=== PATIENT | female | born 1995 | race Caucasian/White ===

== ENCOUNTER 2016-05-29 17:28 | Observation (INO) | payer MEDICAID ==
[2016-05-29] MEDS ORDERED: Zofran 4 MG/2 ML VIAL IV ONE (17:58)
[2016-05-29] MEDS ORDERED: MORPHINE SULFATE 4 MG INJ IV ONE (17:58)
[2016-05-29] MEDS ORDERED: Sodium Chloride 0.9% 1000 ML 1,000 ML IV STA (17:58)
--- NOTE | 2016-05-29 18:04 | ERPHSYRPT ---
- History of Present Illness Time Seen by Provider: 05/29/16 17:55 Historian: patient Exam Limitations: no limitations Patient Subjective Stated Complaint: states had op infusion then went to drug store to get meds. vomited while at drugstore and then had severe chest pain. has been out of buspar for one week Triage Nursing Assessment: to room per w/c. skin pale, w/d, resp nonlabored. a /o times three. clutching chest. Physician History: 20-year-old white female with history of Crohn's disease states that she had come to the infusion center to receive IV fluids secondary to nausea and vomiting and felt like she was dehydrated she states she finished at the infusion center went to the local pharmacy and suddenly began to experience vomiting and the pain in her substernal region. She states she is having a substernal chest pain which is somewhat sharp in character and somewhat of a pressure in character she states she is short of breath she does state that she is nauseous. Past medical history includes asthma, Crohn's disease, GERD, irritable bowel syndrome, depression, she has had mono in the past. Past surgical history includes rotator cuff, bilateral myringotomy tubes. Social history is positive for marijuana Timing/Duration: today, other (just prior to arrival) Activities at Onset: other (had gotten to the drug storeafter infusion) Quality: pressure, sharpness Location: substernal, epigastric Chest Pain Radiation: no radiation Severity of Pain-Max: moderate Severity of Pain-Current: moderate Modifying Factors: Improves With: nothing Associated Symptoms: nausea, vomiting, shortness of breath, No palpitations, No heartburn, No abdominal pain, No cough, No hurts to breathe, No diaphoresis, No chills, No fever, No fatigue, No weakness, No swelling/lump in chest, No syncope , No rash, No headache, No dizziness, No edema, No back pain Prior Chest Pain/Cardiac Workup: no prior chest pain Nitro Today/Relief: no nitro taken today Aspirin Treatment Today: no aspirin today Allergies/Adverse Reactions: paroxetine HCl [From Paxil] Adverse Reaction (Verified 05/29/16 17:41) Nausea Home Medications: Buspirone HCl 5 mg [Buspar 5 mg] 5 mg PO DAILY 04/16/16 [History] Fluticasone Propionate [Flonase NASAL] 16 gm NS DAILY 05/29/16 [History] Hx Tetanus, Diphtheria Vaccination/Date Given: No Hx Influenza Vaccination/Date Given: No Hx Pneumococcal Vaccination/Date Given: No - Review of Systems Constitutional: No Fever, No Chills Eyes: No Symptoms Ears, Nose, & Throat: No Symptoms Respiratory: No Cough, No Dyspnea Cardiac: Chest Pain Abdominal/Gastrointestinal: Abdominal Pain (epigastric pain), Nausea, Vomiting, No Diarrhea, No Constipation, No Hematemesis, No Hematochezia, No Melena, No Dysphagia, No Appetite Changes Genitourinary Symptoms: No Dysuria Musculoskeletal: No Back Pain, No Neck Pain Skin: No Rash Neurological: No Dizziness, No Focal Weakness, No Sensory Changes Psychological: No Symptoms Endocrine: No Symptoms All Other Systems: Reviewed and Negative - Past Medical History Pertinent Past Medical History: Yes Neurological History: Migraines ENT History: No Pertinent History Cardiac History: No Pertinent History Respiratory History: Asthma Endocrine Medical History: No Pertinent History Musculoskeletal History: No Pertinent History GI Medical History: Crohns Disease, GERD, Irritable Bowel History: No Pertinent History, Other Psycho-Social History: Depression Female Reproductive Disorders: Other Other Medical History: MONO. IRRITABLE BOWEL. - Past Surgical History Past Surgical History: Yes Neuro Surgical History: No Pertinent History Cardiac: No Pertinent History Respiratory: No Pertinent History Gastrointestinal: No Pertinent History Genitourinary: No Pertinent History, Other Musculoskeletal: Orthopedic Surgery Female Surgical History: No Pertinent History Other Surgical History: right rotator cuff repair. Ear tubes bilat - Social History Smoking Status: Never smoker Exposure to second hand smoke: Yes Drug Use: marijuana Patient Lives Alone: No Significant Family History: no pertinent family hx - Female History Hx Last Menstrual Period: 05/20/16 Hx Now: (UNKNOWN) - Nursing Vital Signs Temperature: 97.7 F Temperature Source: Oral Pulse Rate: 85 Respiratory Rate: 18 Pain Intensity: 7 - Physical Exam General Appearance: other (white female somewhat pale in appearance mild distress) Eye Exam: PERRL/EOMI, eyes nml inspection Ears, Nose, Throat Exam: normal ENT inspection, moist mucous membranes Neck Exam: normal inspection, non-tender, supple, full range of motion Respiratory Exam: normal breath sounds, lungs clear, No respiratory distress Cardiovascular Exam: regular rate/rhythm, normal heart sounds Gastrointestinal/Abdomen Exam: soft, normal bowel sounds, tenderness ( epigastric tenderness) Back Exam: normal inspection, No CVA tenderness, No vertebral tenderness Extremity Exam: normal inspection, normal range of motion Neurologic Exam: alert, oriented x 3, cooperative, normal mood/affect, sensation nml, No motor deficits Skin Exam: normal color, warm, dry SpO2 Interpretation: normal (99%) SpO2: 99 Oxygen Delivery: Room Air - Course Nursing assessment & vital signs reviewed: Yes EKG Interpreted by Me: RATE (78 bpm), Sinus Rhythm, NORMAL AXIS, Other (EKG, sinus arrhythmia, 78 bpm, normal axis,no acute ST or T wave changes, essentially normal EKG) - Radiology Exams Chest X-ray Interpretation: Interpreted by me, Negative, No Pneumonia, No Pneumothorax Ordered Tests: Active Orders 24 hr Category Date Time 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 Care 05/29/16 17:58 Active EKG-ER Only STAT Care 05/29/16 17:58 Active CHEST 1 VIEW (PORTABLE) Stat Exams 05/29/16 17:58 Taken AMYLASE Stat Lab 05/29/16 18:01 Completed CBC W DIFF Stat Lab 05/29/16 18:01 Completed CMP Stat Lab 05/29/16 18:01 Completed HCG QUALITATIVE,SERUM Stat Lab 05/29/16 18:01 Completed LIPASE Stat Lab 05/29/16 18:01 Completed TROPONIN Q3H Lab 05/30/16 00:00 Ordered TROPONIN Q3H Lab 05/30/16 03:00 Ordered TROPONIN Q3H Lab 05/30/16 06:00 Ordered TROPONIN Stat Lab 05/29/16 18:01 Completed Medication Summary Discontinued Medications Generic Name Dose Route Start Last Admin Trade Name Dimple PRN Reason Stop Dose Admin Sodium Chloride 1,000 mls @ 999 mls/hr 05/29/16 17:58 05/29/16 18:10 Sodium Chloride 0.9% 1000 Ml IV 05/29/16 18:58 999 mls/hr .Q1H1M STA Administration Sodium Chloride Confirm 05/29/16 18:05 Sodium Chloride 0.9% 1000 Ml Administered 05/29/16 18:06 Dose 1,000 mls @ ud .ROUTE .STK-MED ONE Morphine Sulfate 4 mg 05/29/16 17:58 05/29/16 18:10 Morphine Sulfate 4 Mg Inj IV 05/29/16 17:59 4 mg STAT ONE Administration Morphine Sulfate Confirm 05/29/16 18:05 Morphine Sulfate 4 Mg Inj Administered 05/29/16 18:06 Dose 4 mg .ROUTE .STK-MED ONE Ondansetron HCl 4 mg 05/29/16 17:58 Zofran 4 Mg/2 Ml Vial IV 05/29/16 17:59 STAT ONE Ondansetron HCl Confirm 05/29/16 18:05 Zofran 4 Mg/2 Ml Vial Administered 05/29/16 18:06 Dose 4 mg .ROUTE .STK-MED ONE Lab/Rad Data: Laboratory Result Diagrams 05/29/16 18:01 05/29/16 18:01 Laboratory Results 05/29/16 05/29/16 05/29/16 Range/Units 18:01 18:01 18:01 WBC (4.0-10.5) K/mm3 RBC (4.1-5.4) M/mm3 Hgb (12.0-16.0) gm/dl Hct (35-47) % MCV (78-100) fl MCH (26-32) pg MCHC (32-36) g/dl RDW (11.5-14.0) % Plt Count (150-450) K/mm3 MPV (6-9.5) fl Gran % (36.0-66.0) % Lymphocytes % (24.0-44.0) % Monocytes % (0.0-12.0) % Eosinophils % (0.00-5.0) % Basophils % (0.0-0.4) % Basophils # (0-0.4) Sodium 142 (136-145) mEq/L Potassium 3.2 L (3.5-5.1) mEq/L Chloride 106 (98-107) mEq/L Carbon Dioxide 20.9 L (21-32) mEq/L Anion Gap 18.4 H (5-15) MEQ/L BUN 7 L (9-20) mg/dL Creatinine 0.86 (0.55-1.30) mg/dl Estimated GFR > 60 ML/MIN Glucose 97 (70-110) MG/DL Calcium 9.3 (8.5-10.1) mg/dL Total Bilirubin 0.7 (0.2-1.0) mg/dL AST 22 (15-37) U/L ALT 11 L (12-78) U/L Alkaline Phosphatase 94 (46-116) U/L Troponin I < 0.017 (0.000-0.056) ng/ml Serum Total Protein 7.5 (6.4-8.2) gm/dL Albumin 4.1 (3.4-5.0) g/dL Amylase 78 (25-115) U/L Lipase 159 (73-393) U/L Serum , Qual NEGATIVE (Negative) 05/29/16 Range/Units 18:01 WBC 7.4 (4.0-10.5) K/mm3 RBC 4.57 (4.1-5.4) M/mm3 Hgb 14.4 (12.0-16.0) gm/dl Hct 41.6 (35-47) % MCV 91.0 (78-100) fl MCH 31.5 (26-32) pg MCHC 34.6 (32-36) g/dl RDW 12.5 (11.5-14.0) % Plt Count 253 (150-450) K/mm3 MPV 10.3 H (6-9.5) fl Gran % 55.3 (36.0-66.0) % Lymphocytes % 34.7 (24.0-44.0) % Monocytes % 7.5 (0.0-12.0) % Eosinophils % 1.8 (0.00-5.0) % Basophils % 0.7 (0.0-0.4) % Basophils # 0.05 (0-0.4) Sodium (136-145) mEq/L Potassium (3.5-5.1) mEq/L Chloride (98-107) mEq/L Carbon Dioxide (21-32) mEq/L Anion Gap (5-15) MEQ/L BUN (9-20) mg/dL Creatinine (0.55-1.30) mg/dl Estimated GFR ML/MIN Glucose (70-110) MG/DL Calcium (8.5-10.1) mg/dL Total Bilirubin (0.2-1.0) mg/dL AST (15-37) U/L ALT (12-78) U/L Alkaline Phosphatase (46-116) U/L Troponin I (0.000-0.056) ng/ml Serum Total Protein (6.4-8.2) gm/dL Albumin (3.4-5.0) g/dL Amylase (25-115) U/L Lipase (73-393) U/L Serum , Qual (Negative) - Progress Progress: improved Air Movement: fair Progress Note: 05/29/16 19:05 Patient is feeling better however she states she continues to have some pain and also some pain in her back. Patient's labs are essentially normal with the exception of an increased anion gap. I've discussed the case with Dr. Vyas will place patient on observation telemetry. Will obtain serial cardiac enzymes provide IV fluids Patient will be given aspirin in the emergency room - Departure Time of Disposition: 19:05 Departure Disposition: Observation Clinical Impression: Epigastric pain Chest pain Qualifiers: Chest pain type: unspecified Qualified Code(s): R07.9 - Chest pain, unspecified Condition: Fair Critical Care Time: No
[2016-05-29] MEDS ORDERED: Sodium Chloride 0.9% 1000 ML 1,000 ML ONE (18:05)
[2016-05-29] MEDS ORDERED: Zofran 4 MG/2 ML VIAL ONE (18:05)
[2016-05-29] MEDS ORDERED: MORPHINE SULFATE 4 MG INJ ONE (18:05)
[2016-05-29 18:12] LABS: BASOPHIL % 0.7 % (0.0-0.4); Eosinophil % 1.8 % (0.00-5.0); Granulocytes % 55.3 % (36.0-66.0); Lymphocytes % 34.7 % (24.0-44.0); Mean Corpuscular Hemoglobin 31.5 pg (26-32); Mean Platelet Volume 10.3 fl (6-9.5); Monocytes % 7.5 % (0.0-12.0); Platelet Count 253 K/mm3 (150-450); Red Blood Count 4.57 M/mm3 (4.1-5.4); Red Cell Distribution Width 12.5 % (11.5-14.0); White Blood Count 7.4 K/mm3 (4.0-10.5)
[2016-05-29 18:31] LABS: ALBUMIN 4.1 g/dL (3.4-5.0); ALKALINE PHOSPHATASE 94 U/L (46-116); ANION GAP 18.4 MEQ/L (5-15); BILIRUBIN,TOTAL 0.7 mg/dL (0.2-1.0); BLOOD UREA NITROGEN 7 mg/dL (9-20); CHLORIDE 106 mEq/L (98-107); Carbon Dioxide 20.9 mEq/L (21-32); Glucose 97 MG/DL (70-110); Potassium 3.2 mEq/L (3.5-5.1); SGOT/AST 22 U/L (15-37); SGPT/ALT 11 U/L (12-78); SODIUM 142 mEq/L (136-145); Total Protein 7.5 gm/dL (6.4-8.2)
[2016-05-29 18:36] LABS: LIPASE 159 U/L (73-393); TROPONIN < 0.017 ng/ml (0.000-0.056)
[2016-05-29] MEDS ORDERED: BABY ASPIRIN 81 MG CHEW PO ONE (19:04)
[2016-05-29] MEDS ORDERED: BABY ASPIRIN 81 MG CHEW ONE (19:21)
[2016-05-29] MEDS ORDERED: Senokot-S Tablet PO PRN (19:56)
[2016-05-29] MEDS ORDERED: MILK OF MAGNESIA 30 ML PO PRN (19:56)
[2016-05-29] MEDS ORDERED: TYLENOL 325 MG PO PRN (19:56)
[2016-05-29] MEDS ORDERED: Sodium Chloride 0.9% 500 ML 500 ML IV SCH (19:56)
[2016-05-29] MEDS: Sodium Chloride 0.9% 1000 ML 1,000 ML IV SCH (20:20)
[2016-05-29] MEDS: MORPHINE SULFATE 2 MG INJ IV PRN (20:49)
[2016-05-29] MEDS: BUSPAR 5 MG PO SCH (21:35)
[2016-05-29] MEDS: Zofran 4 MG/2 ML VIAL IV PRN (21:54)
[2016-05-29] MEDS ORDERED: MARY'S MOUTHWASH PO SCH (22:00)
[2016-05-30] MEDS: MORPHINE SULFATE 2 MG INJ IV PRN ×4 (04:21→21:23)
[2016-05-30] MEDS: Sodium Chloride 0.9% 1000 ML 1,000 ML IV SCH ×2 (04:32→15:48)
--- NOTE | 2016-05-30 08:45 | XRAY ---
Indication: Chest pain. Comparison: March 10, 2012 Portable chest again demonstrates normal heart, lungs, and bony thorax.
[2016-05-30] MEDS: BUSPAR 5 MG PO SCH ×2 (09:11→21:19)
[2016-05-30] MEDS: Ecotrin 325 MG PO SCH (09:11)
[2016-05-30] MEDS: Flonase NASAL NS SCH (09:12)
[2016-05-30] MEDS: Zofran 4 MG/2 ML VIAL IV PRN ×2 (09:18→21:55)
[2016-05-30] MEDS ORDERED: FLUZONE QUAD 2016-2017 SYRINGE 36MO-64YO IM ONE (10:00)
[2016-05-30] MEDS ORDERED: PNEUMOVAX 23 IM ONE (10:00)
[2016-05-30] MEDS: MAALOX ES 30 ML UNIT DOSE PO PRN (10:06)
[2016-05-30] MEDS: PATIENT OWN MEDICATION PO SCH ×3 (11:00→21:19)
--- NOTE | 2016-05-30 12:55 | PCM.HP ---
History of Present Illness - Chief Complaint Chief Complaint: epigastric pain, Chest pain R/O History of Present Illness: is a 20 year old female pt of mine from [facility] with a hx of Crohn's disease who c/o 2 weeks of epigastric pain. Yesterday it suddenly got much worse with associated SOB and she came to the ER and was admitted. Pain is epigastric and radiates to R shoulder blade. Not currently having any SOB . The chest pain is still present but decreased with pain meds. Has not tolerated much po for the past 2 weeks. Last vomited yesterday. no diarrhea. Strong FHx gallbladder dz. - Review of Systems Constitutional: Fever (subjective, at home.), Weight Loss (over the past 2 wks) Respiratory: Short Of Breath Cardiac: Chest Pain Abdominal/Gastrointestinal: Abdominal Pain, Nausea, Vomiting, Appetite Changes, No Diarrhea Genitourinary Symptoms: Dysuria Psychological: Depression, No Suicidal Ideations All Other Systems: Reviewed and Negative Medications & Allergies Home Medications: Home Medication List Buspirone HCl 5 mg [Buspar 5 mg] 5 mg PO BID 04/16/16 [History Confirmed 05/29/16] Fluticasone Propionate [Flonase NASAL] 16 gm NS DAILY 05/29/16 [History Confirmed 05/29/16] Nystatin/TCN/Hc/Diphenhydram [Leslie's Magic Mouthwash] 5 ml PO TID 05/29/16 [History Confirmed 05/29/16] Allergies/Adverse Reactions: Allergies Allergy/AdvReac Type Severity Reaction Status Date / Time paroxetine HCl [From Paxil] AdvReac Nausea Verified 05/29/16 17:41 - Past Medical History Past Medical History: Yes Neurological History: Migraines ENT History: No Pertinent History Cardiac History: No Pertinent History Respiratory History: Asthma Endocrine Medical History: No Pertinent History Musculoskelatal History: No Pertinent History GI Medical History: Crohns Disease, GERD, Irritable Bowel History: No Pertinent History, Other Pyscho-Social History: Depression Reproductive Disorders: Other Comment: MONO. IRRITABLE BOWEL. - Female History Hx Last Menstrual Period: 05/20/16 Are you now?: No - Past Surgical History Past Surgical History: Yes Neuro Surgical History: No Pertinent History Cardiac History: No Pertinent History Respiratory Surgery: No Pertinent History GI Surgical History: No Pertinent History Genitourinary Surgical Hx: No Pertinent History, Other Musculskeletal Surgical Hx: Orthopedic Surgery Female Surgical History: No Pertinent History Other Surgical History: right rotator cuff repair. Ear tubes bilat - Social History Smoking Status: Former smoker Exposure to second hand smoke: Yes Alcohol: None Drug Use: marijuana Significant Family History: no pertinent family hx - Physical Exam Vital Signs: Vital Signs - 24 hr Temp Pulse Resp BP Pulse Ox 05/30/16 12:00 90 18 104/62 98 05/30/16 08:53 98 05/30/16 08:00 98.4 F 72 20 104/62 98 05/30/16 05:15 97 05/30/16 04:00 97.9 F 74 19 114/90 100 05/30/16 00:01 71 05/30/16 00:00 97.7 F 71 20 107/66 99 05/29/16 20:24 86 18 118/74 99 05/29/16 19:06 97.7 F 85 18 99 05/29/16 18:41 89 18 107/72 99 05/29/16 17:35 97.7 F 85 18 110/74 99 General Appearance: no apparent distress Neurologic Exam: alert, oriented x 3, cooperative Eye Exam: eyes nml inspection Neck Exam: normal inspection, non-tender, No lymphadenopathy Respiratory Exam: normal breath sounds, lungs clear, No crackles/rales, No rhonchi, No wheezing Cardiovascular Exam: regular rate/rhythm, normal heart sounds, No murmur Gastrointestinal/Abdomen Exam: soft, tenderness (epigastrum), other (hypoactive BS), No distention, No mass, No guarding, No rebound Back Exam: CVA tenderness (on R) Extremity Exam: normal inspection, No pedal edema, No swelling Skin Exam: normal color, warm, dry, No rash Results - Labs Lab/Micro Results: Lab Results-Last 24 Hours 05/30/16 05/30/16 05/30/16 Range/Units 00:20 03:00 05:40 Troponin I < 0.017 < 0.017 < 0.017 (0.000-0.056) ng/ml Triglycerides (30-200) mg/dL Cholesterol (100-200) mg/dL LDL Cholesterol (5-99) mg/dL HDL Cholesterol (35-60) mg/dL Heart Disease Risk Ratio 05/30/16 Range/Units 05:40 Troponin I (0.000-0.056) ng/ml Triglycerides 77 (30-200) mg/dL Cholesterol 170 (100-200) mg/dL LDL Cholesterol 120 H (5-99) mg/dL HDL Cholesterol 39 (35-60) mg/dL Heart Disease Risk Ratio 4.4 - Other Procedures and Tests Respiratory Therapy 05/31/16 05:00 EKG DAILY 06/01/16 05:00 EKG DAILY 06/02/16 05:00 EKG DAILY Assessment/Plan (1) Chest pain Current Visit: Yes Status: Acute Qualifiers: Chest pain type: unspecified Qualified Code(s): R07.9 - Chest pain, unspecified Assessment & Plan: Will check D-dimer, if positive do CTA of the c hest. NV ruled out. Code(s): R07.9 - CHEST PAIN, UNSPECIFIED (2) Epigastric pain Current Visit: Yes Status: Acute Assessment & Plan: Worry for gallbladder dz vs. esophageal spasm. Will do U/S today with HIDA tomorrow if U/S neg. consider trying po nitro if U/S neg. Code(s): R10.13 - EPIGASTRIC PAIN (3) Dehydration Current Visit: No Status: Acute Assessment & Plan: improving with IV fluids. Code(s): E86.0 - DEHYDRATION (4) Nausea & vomiting Current Visit: No Status: Acute Code(s): R11.2 - NAUSEA WITH VOMITING, UNSPECIFIED (5) Crohn disease Current Visit: Yes Status: Chronic Code(s): K50.90 - CROHN'S DISEASE, UNSPECIFIED, WITHOUT COMPLICATIONS (6) Dysuria Current Visit: Yes Status: Acute Assessment & Plan: check UA and urine GC/CT. Code(s): R30.0 - DYSURIA
[2016-05-30 13:59] LABS: Collection Type VOID
[2016-05-30 14:00] LABS: COMPLETE URINE MICROSCOPIC? NO
[2016-05-30 16:11] LABS: CHLAMYDIA URINE NEGATIVE; GC URINE NEGATIVE
--- NOTE | 2016-05-30 17:05 | XRAY ---
Indication: Right upper quadrant abdominal pain. Two-dimensional right upper quadrant abdominal sonogram performed. Comparison: March 08, 2010 Visualized portions of the gallbladder, liver, pancreas, and right kidney again appears sonographically normal. Common bile duct measures 2.1 mm. Right kidney measures 8.5 cm in length. No ascites. Impression: Stable negative right upper quadrant sonogram.
[2016-05-30] MEDS ORDERED: Ambien 10 MG PO ONE (22:00)
[2016-05-31] MEDS: BUSPAR 5 MG PO SCH ×2 (07:46→21:08)
[2016-05-31] MEDS: Ecotrin 325 MG PO SCH (07:46)
[2016-05-31] MEDS: Flonase NASAL NS SCH (07:49)
--- NOTE | 2016-05-31 07:54 | PCM.NOTE ---
Date and Time: 05/31/16 0751 Subjective Assessment: Pt c/o 6/10 pain right now and increasing. Pain is epigastrum radiating into the lower central chest. Vomited some overnight. Objective Exam General Appearance: no apparent distress Neurologic Exam: alert, cooperative Skin Exam: normal color, warm, dry Respiratory Exam: normal breath sounds, lungs clear, No crackles/rales, No rhonchi, No wheezing Cardiovascular Exam: regular rate/rhythm, normal heart sounds Gastrointestinal/Abdomen Exam: soft, normal bowel sounds, tenderness (epigastrum ), No distention, No guarding, No rebound Extremity Exam: No pedal edema, No swelling OBJECTIVE DATA Vital Signs: Vital Signs - 24 hr Temp Pulse Resp BP Pulse Ox 05/31/16 07:31 98.2 F 91 H 18 103/58 98 05/31/16 05:01 96 05/31/16 05:00 98 05/31/16 04:00 98.3 F 107 H 16 102/63 98 05/31/16 01:00 97 05/31/16 00:00 97.9 F 71 15 106/58 96 05/30/16 21:00 99 05/30/16 19:56 98.4 F 76 16 95/53 98 05/30/16 17:00 98 05/30/16 15:49 78 17 122/68 98 05/30/16 13:00 98 05/30/16 12:00 90 18 104/62 98 05/30/16 08:53 98 05/30/16 08:00 98.4 F 72 20 104/62 98 Pain Assessment - Last Documented Pain Intensity 3 Pain Scale Used 0-10 Pain Scale Intake and Output: Intake & Output 05/28/16 05/29/16 05/30/16 05/31/16 11:59 11:59 11:59 11:59 Intake Total 1293 2910 Output Total 400 Balance 1293 2510 Weight 56.155 kg 56.971 kg Lab Results: Lab Results-Last 24 Hours 05/30/16 05/30/16 05/30/16 Range/Units 05:40 12:57 13:30 D-Dimer 0.275 (0.00-0.49) mg/L Ur Collection Type VOID Urine Color YELLOW (YELLOW) Urine Appearance CLEAR (CLEAR) Urine pH 6.0 (5-6) Ur Specific [place] 1.010 (1.005-1.025) Urine Protein NEGATIVE (Negative) Urine Glucose (UA) NEGATIVE (NEGATIVE) mg/dL Urine Ketones LARGE-80 (NEGATIVE) Urine Nitrite NEGATIVE (NEGATIVE) Urine Bilirubin NEGATIVE (NEGATIVE) Urine Urobilinogen 0.2 (0-1) mg/dL Urine WBC (Auto) NEGATIVE (NEGATIVE) Urine RBC (Auto) NEGATIVE (0-5) [place]/ul Chlamydia DNA (PCR) NEGATIVE Urine GC DNA Probe NEGATIVE Specimen Received 05/30/16 1330 Radiology Exams: Radiology Procedures Category Date Time Status GALLBLADDER [US] Routine Exams 05/30/16 12:58 Completed HIDA-GALL BLADDER [NUCMED] Routine Exams 05/31/16 07:20 Ordered Assessment/Plan (1) Epigastric pain Current Visit: Yes Status: Acute Assessment & Plan: HIDA scan today. IF neg would do ct abd/pelvis with IV and po contrast. Code(s): R10.13 - EPIGASTRIC PAIN (2) Dehydration Current Visit: No Status: Acute Assessment & Plan: resolving. Code(s): E86.0 - DEHYDRATION (3) Nausea & vomiting Current Visit: No Status: Acute Assessment & Plan: persistent. Code(s): R11.2 - NAUSEA WITH VOMITING, UNSPECIFIED (4) Crohn disease Current Visit: Yes Status: Chronic Code(s): K50.90 - CROHN'S DISEASE, UNSPECIFIED, WITHOUT COMPLICATIONS (5) Dysuria Current Visit: Yes Status: Acute Assessment & Plan: UA was wnl. Code(s): R30.0 - DYSURIA (6) Chest pain Current Visit: Yes Status: Acute Qualifiers: Chest pain type: unspecified Qualified Code(s): R07.9 - Chest pain, unspecified Assessment & Plan: I think radiating from epigastrum. ND was ruled out in this 20 yo. Code(s): R07.9 - CHEST PAIN, UNSPECIFIED
[2016-05-31] MEDS: PATIENT OWN MEDICATION PO SCH ×3 (08:19→21:09)
[2016-05-31 08:20] LABS: BASOPHIL % 0.5 % (0.0-0.4); Eosinophil % 1.8 % (0.00-5.0); Granulocytes % 57.1 % (36.0-66.0); Lymphocytes % 32.2 % (24.0-44.0); Mean Cell Volume 91.4 fl (78-100); Mean Platelet Volume 9.5 fl (6-9.5); Monocytes % 8.4 % (0.0-12.0); Platelet Count 217 K/mm3 (150-450); Red Blood Count 4.06 M/mm3 (4.1-5.4); Red Cell Distribution Width 12.2 % (11.5-14.0); White Blood Count 7.7 K/mm3 (4.0-10.5)
[2016-05-31 08:22] LABS: Mean Corpuscular Hemoglobin 31.2 pg (26-32)
[2016-05-31 09:26] LABS: ALBUMIN 3.5 g/dL (3.4-5.0); ALKALINE PHOSPHATASE 84 U/L (46-116); ANION GAP 15.8 MEQ/L (5-15); BILIRUBIN,TOTAL 0.6 mg/dL (0.2-1.0); BLOOD UREA NITROGEN 2 mg/dL (9-20); CHLORIDE 109 mEq/L (98-107); Carbon Dioxide 23.3 mEq/L (21-32); Glucose 77 MG/DL (70-110); Potassium 4.2 mEq/L (3.5-5.1); SGOT/AST 15 U/L (15-37); SODIUM 144 mEq/L (136-145); Total Protein 6.5 gm/dL (6.4-8.2)
[2016-05-31] MEDS: Zofran 4 MG/2 ML VIAL IV PRN ×4 (09:32→23:03)
[2016-05-31 09:49] LABS: SGPT/ALT 8 U/L (12-78)
[2016-05-31] MEDS: MORPHINE SULFATE 2 MG INJ IV PRN ×4 (12:35→23:03)
--- NOTE | 2016-05-31 12:50 | XRAY ---
Indication: Right upper quadrant pain and vomiting for 2 weeks. Negative gallbladder sonogram. Comparison: None Patient received 6.2 mCi technetium 99 Choletec. Immediate anterior planar imaging was performed for 60 minutes. Normal hepatic activity on the first image. Normal biliary activity within 10 minutes. Normal gallbladder activity within 15 minutes. Normal biliary to bowel activity within 30 minutes. Patient then received 1.1 g of IV CCK slowly. Ejection fraction calculated 12%, low. Impression: HIDA scan portion of the study is normal. Low ejection fraction of 12%. Rule out chronic cholecystitis.
[2016-05-31] MEDS: Sodium Chloride 0.9% 1000 ML 1,000 ML IV SCH ×3 (13:50→22:15)
[2016-05-31] MEDS ORDERED: Pepcid 20 MG VIAL IV SCH (16:30)
[2016-05-31] MEDS ORDERED: MEFOXIN 2 GM PREMIX** 50 ML IV SCH (17:00)
[2016-05-31] MEDS ORDERED: Sensorcaine 0.25% 10 ML ONE (19:12)
[2016-05-31] MEDS ORDERED: Lactated Ringers 1,000 ML IV ONE (19:12)
[2016-05-31] MEDS: Lactated Ringers 1,000 ML IV SCH (21:29)
[2016-05-31] MEDS ORDERED: Ambien 10 MG PO ONE (22:00)
[2016-06-01] MEDS: MAALOX ES 30 ML UNIT DOSE PO PRN (00:28)
[2016-06-01] MEDS: MORPHINE SULFATE 2 MG INJ IV PRN ×3 (03:50→21:48)
[2016-06-01] MEDS: Zofran 4 MG/2 ML VIAL IV PRN ×3 (03:50→20:34)
[2016-06-01] MEDS: Sodium Chloride 0.9% 1000 ML 1,000 ML IV SCH (05:54)
[2016-06-01] MEDS ORDERED: Pepcid 20 MG VIAL IV SCH (08:15)
[2016-06-01] MEDS ORDERED: MEFOXIN 2 GM PREMIX** 50 ML IV SCH (09:00)
[2016-06-01] MEDS ORDERED: MORPHINE SULFATE 4 MG INJ IV PRN (09:45)
[2016-06-01] MEDS ORDERED: Phenergan 25 MG INJ IV PRN (09:45)
[2016-06-01] MEDS ORDERED: Ambien 10 MG PO PRN (09:45)
--- NOTE | 2016-06-01 09:53 | PCM.NOTE ---
Date and Time: 06/01/16 0948 Subjective Assessment: She is still c/o abd pain, her HIDA abn yesterday (EF 12%). Still c/o nausea. Pain meds only last about 2 hrs. She is also c/o vaginal itching and burning. She is also c/o generalized itchign. Objective Exam General Appearance: moderate distress Neurologic Exam: alert, oriented x 3, cooperative Skin Exam: normal color, warm, dry Respiratory Exam: normal breath sounds, lungs clear, No crackles/rales, No rhonchi, No wheezing Cardiovascular Exam: regular rate/rhythm, normal heart sounds, No murmur Gastrointestinal/Abdomen Exam: soft, tenderness (mild epigastrum), No distention , No guarding, No rebound Extremity Exam: No pedal edema, No swelling Back Exam: normal inspection OBJECTIVE DATA Vital Signs: Vital Signs - 24 hr Temp Pulse Resp BP BP Pulse Ox 06/01/16 06:58 98.4 F 104 H 18 103/52 98 06/01/16 04:00 98.4 F 81 17 101/63 98 06/01/16 00:53 96 06/01/16 00:00 97.3 F 95 H 18 106/55 96 05/31/16 20:00 97 05/31/16 19:58 97.7 F 103 H 18 94/50 97 05/31/16 17:00 98 05/31/16 16:00 97.7 F 98 H 17 97/47 98 05/31/16 15:44 98.2 F 91 H 16 103/58 98 05/31/16 13:00 98 Pain Assessment - Last Documented Pain Intensity 3 Pain Scale Used 0-10 Pain Scale Intake and Output: Intake & Output 05/29/16 05/30/16 05/31/16 06/01/16 11:59 11:59 11:59 11:59 Intake Total 1293 2910 1028 Output Total 400 60 Balance 1293 2510 968 Weight 56.155 kg 56.971 kg 58.332 kg Lab Results: Lab Results-Last 24 Hours 05/31/16 Range/Units 08:12 Sodium 144 (136-145) mEq/L Potassium 4.2 (3.5-5.1) mEq/L Chloride 109 H (98-107) mEq/L Carbon Dioxide 23.3 (21-32) mEq/L Anion Gap 15.8 H (5-15) MEQ/L BUN 2 L (9-20) mg/dL Creatinine 0.79 (0.55-1.30) mg/dl Estimated GFR > 60 ML/MIN Glucose 77 (70-110) MG/DL Calcium 8.7 (8.5-10.1) mg/dL Total Bilirubin 0.6 (0.2-1.0) mg/dL AST 15 (15-37) U/L ALT 8 L (12-78) U/L Alkaline Phosphatase 84 (46-116) U/L Serum Total Protein 6.5 (6.4-8.2) gm/dL Albumin 3.5 (3.4-5.0) g/dL Radiology Exams: Radiology Procedures Category Date Time Status GALLBLADDER [US] Routine Exams 05/30/16 12:58 Completed HIDA-GALL BLADDER [NUCMED] Routine Exams 05/31/16 07:20 Completed Multi-Disciplinary Progress Notes: Multi-Disciplinary Progress Notes 05/31/16 10:20 (created 05/31/16 11:56) Case Management Note by Rebecca Kerr REVIEWED DC PLAN, CONTINUES TO PLAN TO RETURN HOME TO PRE EPISODIC LEVEL OF FNX. INDEPENDENT WITH ALL ADL'S. Initialized on 05/31/16 11:56 - END OF NOTE Assessment/Plan (1) Cholecystitis Current Visit: Yes Status: Acute Assessment & Plan: abn HIDA scan. Surgery to consult today, thank you! Code(s): K81.9 - CHOLECYSTITIS, UNSPECIFIED (2) Dehydration Current Visit: No Status: Resolved Code(s): E86.0 - DEHYDRATION (3) Nausea & vomiting Current Visit: No Status: Acute Assessment & Plan: persistent. Add phenergan. Code(s): R11.2 - NAUSEA WITH VOMITING, UNSPECIFIED (4) Crohn disease Current Visit: Yes Status: Chronic Code(s): K50.90 - CROHN'S DISEASE, UNSPECIFIED, WITHOUT COMPLICATIONS (5) Dysuria Current Visit: Yes Status: Acute Assessment & Plan: with vaginal itching; treat for yeast infection. Code(s): R30.0 - DYSURIA (6) Chest pain Current Visit: Yes Status: Acute Qualifiers: Chest pain type: unspecified Qualified Code(s): R07.9 - Chest pain, unspecified Assessment & Plan: referred epigastric pain. Code(s): R07.9 - CHEST PAIN, UNSPECIFIED (7) Pruritic condition Current Visit: Yes Status: Acute Assessment & Plan: unsure if related to medication; benadryl prn q 6h. Code(s): L29.9 - PRURITUS, UNSPECIFIED
[2016-06-01] MEDS: Ecotrin 325 MG PO SCH (10:00)
[2016-06-01] MEDS: PATIENT OWN MEDICATION PO SCH ×3 (10:00→21:29)
[2016-06-01] MEDS: Flonase NASAL NS SCH (10:09)
[2016-06-01] MEDS: Monistat 7 VG SCH (10:12)
[2016-06-01] MEDS: BENADRYL 50 MG/ML IV PRN (10:14)
[2016-06-01] MEDS: BUSPAR 5 MG PO SCH ×2 (10:19→21:29)
[2016-06-01 12:57] LABS: BASOPHIL % 0.6 % (0.0-0.4); Eosinophil % 1.7 % (0.00-5.0); Granulocytes % 68.7 % (36.0-66.0); Mean Cell Volume 91.4 fl (78-100); Mean Corpuscular Hemoglobin 30.8 pg (26-32); Platelet Count 226 K/mm3 (150-450); Red Blood Count 4.19 M/mm3 (4.1-5.4); Red Cell Distribution Width 12.2 % (11.5-14.0); White Blood Count 8.1 K/mm3 (4.0-10.5)
[2016-06-01 13:30] LABS: ALBUMIN 3.8 g/dL (3.4-5.0); ALKALINE PHOSPHATASE 86 U/L (46-116); BILIRUBIN,TOTAL 0.5 mg/dL (0.2-1.0); BLOOD UREA NITROGEN 2 mg/dL (9-20); CHLORIDE 106 mEq/L (98-107); Carbon Dioxide 18.2 mEq/L (21-32); Glucose 52 MG/DL (70-110); Potassium 3.9 mEq/L (3.5-5.1); SGOT/AST 24 U/L (15-37); SGPT/ALT 15 U/L (12-78); SODIUM 142 mEq/L (136-145)
[2016-06-01] MEDS: Lactated Ringers 1,000 ML IV SCH (13:53)
[2016-06-01] MEDS ORDERED: DIPRIVAN 200 MG/20 ML IV ONE (14:44)
[2016-06-01] MEDS ORDERED: Decadron 4 MG INJ IV ONE (14:44)
[2016-06-01] MEDS ORDERED: BRIDION 200MG/2ML IV ONE (14:44)
[2016-06-01] MEDS ORDERED: DILAUDID 2 MG INJECTION IV ONE (14:44)
[2016-06-01] MEDS ORDERED: Zofran 4 MG/2 ML VIAL IV ONE (14:44)
[2016-06-01] MEDS ORDERED: SUBLIMAZE 100 MCG/2 ML IV ONE (14:44)
[2016-06-01] MEDS ORDERED: Zemuron 100 MG/10 ML IV ONE (14:44)
[2016-06-01] MEDS ORDERED: Quelicin Fliptop 200 MG/10 ML IV ONE (14:44)
[2016-06-01] MEDS ORDERED: TORAdol 30 mg Injection IV ONE (14:44)
[2016-06-01] MEDS ORDERED: TYLENOL 325 MG PO PRN (17:42)
[2016-06-01] MEDS ORDERED: FEVERALL 650 MG PR PRN (17:43)
[2016-06-01] MEDS ORDERED: Zofran 4 MG/2 ML VIAL IVIM PRN (17:45)
--- NOTE | 2016-06-01 17:47 | OP ---
SURGERY DATE: 06/01/16 SURGERY TIME: 1535 PREOPERATIVE DIAGNOSIS: 1. SYMPTOMATIC CHOLELITHIASIS. POSTOPERATIVE DIAGNOSIS: 1. SYMPTOMATIC CHOLECYSTITIS AND SLUDGE, PATHOLOGY PENDING. PROCEDURE: 1. Laparoscopic cholecystectomy. SURGEON: Cam Borrero M.D. ANESTHESIA: General. INDICATION: Patient with multiple episodes the last 3 or 4 weeks. US suggesting stones. Diagnosed with acute cholecystitis, cholelithiasis. Procedure discussed with her last night in detail. Wished to proceed. OPERATIVE PROCEDURE: Taken to surgery. General anesthetic. Routine prep and drape. Veress needle inserted deliberately between to Allis' at a 20 degree angle inferiorly directed from the navel. Opening pressure of 4. Insufflated to a pressure of 14. Four 5s were used. Good visualization. The patient was thin in general. Infundibulum dissected. There were adhesions. Cystic duct defined. Cystic artery defined. Cystic duct triply Ligaclipped and transected. Gallbladder rolled out of gallbladder fossa. The gallbladder was thin-walled. There was some oozing from the gallbladder which was suctioned. There was no absolutely visible stone. The gallbladder was extracted with about 70% of the bile in the gallbladder. There were no palpable stones in the gallbladder. Field was generously irrigated and suctioned. There was no suggestion of leaving any residual material at all. The field was totally dry. The fascial defect was 5 mm, skin only. 4-0 Vicryl was closed. Steri-strips. Patient tolerated the procedure satisfactory. Findings discussed with the family in the waiting room.
[2016-06-01] MEDS ORDERED: MEFOXIN 1 Gm/ D5W 50 Ml** 50 ML IV SCH (21:00)
[2016-06-01] MEDS: D5W/0.45NS W/ 20mEq KCl 1000 ML 1,000 ML IV SCH (21:27)
[2016-06-01] MEDS: MEFOXIN 1 Gm/ D5W 50 Ml** 50 ML IV SCH (21:53)
[2016-06-02] MEDS: MEFOXIN 1 Gm/ D5W 50 Ml** 50 ML IV SCH ×3 (00:01→11:38)
[2016-06-02] MEDS: MORPHINE SULFATE 2 MG INJ IV PRN ×2 (00:20→03:03)
[2016-06-02] MEDS: Zofran 4 MG/2 ML VIAL IV PRN (00:25)
[2016-06-02] MEDS: BENADRYL 50 MG/ML IV PRN (03:08)
[2016-06-02] MEDS: NORCO 5/325 MG PO PRN ×3 (05:13→13:06)
[2016-06-02 06:16] LABS: Mean Cell Volume 89.7 fl (78-100); Mean Corpuscular Hemoglobin 31.1 pg (26-32); Mean Platelet Volume 10.1 fl (6-9.5); Platelet Count 245 K/mm3 (150-450); Red Blood Count 4.27 M/mm3 (4.1-5.4); Red Cell Distribution Width 12.2 % (11.5-14.0); White Blood Count 10.1 K/mm3 (4.0-10.5)
[2016-06-02] MEDS: BUSPAR 5 MG PO SCH (09:13)
[2016-06-02] MEDS: Ecotrin 325 MG PO SCH (09:13)
[2016-06-02] MEDS: D5W/0.45NS W/ 20mEq KCl 1000 ML 1,000 ML IV SCH (09:13)
[2016-06-02] MEDS: Monistat 7 VG SCH (09:17)
[2016-06-02] MEDS: Flonase NASAL NS SCH (09:18)
[2016-06-02] MEDS: PATIENT OWN MEDICATION PO SCH ×2 (09:19→14:29)
[2016-06-02] MEDS ORDERED: ENOXAPARIN SODIUM SQ SCH (10:00)
[2016-06-02 12:02] VITALS: BP 99/59
--- NOTE | 2016-06-02 12:12 | PCM.NOTE ---
Date and Time: 06/02/16 1207 Subjective Assessment: she is having soreness s/p surgery, no nausea today. feeling much better. Objective Exam General Appearance: no apparent distress Neurologic Exam: alert, oriented x 3, cooperative Skin Exam: normal color, warm, dry Respiratory Exam: normal breath sounds, lungs clear, No crackles/rales, No rhonchi, No wheezing Cardiovascular Exam: regular rate/rhythm, normal heart sounds Gastrointestinal/Abdomen Exam: soft, tenderness (generalized), other (surgical wounds with steri strips, dry/intact) Extremity Exam: No pedal edema, No swelling OBJECTIVE DATA Vital Signs: Vital Signs - 24 hr Temp Pulse Resp BP Pulse Ox 06/02/16 12:00 98.3 F 113 H 18 99/59 98 06/02/16 09:00 97 06/02/16 08:00 18 06/02/16 07:20 98.1 F 118 H 18 92/56 97 06/02/16 05:30 103 H 16 96 06/02/16 05:10 96 06/02/16 03:58 98.5 F 101 H 17 109/72 96 06/02/16 00:20 96 06/02/16 00:00 97.8 F 92 H 18 92/55 97 06/01/16 21:00 95 06/01/16 20:10 97.6 F 69 12 103/58 92 L 06/01/16 20:09 109 H 13 96 06/01/16 19:10 97.9 F 88 17 89/54 96 06/01/16 18:10 97.8 F 77 16 96/56 95 06/01/16 17:40 98.4 F 96 H 18 123/69 97 06/01/16 17:10 98.4 F 81 16 106/65 97 06/01/16 17:00 97 06/01/16 16:55 98.4 F 86 18 97/58 96 06/01/16 13:00 98 Pain Assessment - Last Documented Pain Intensity 10 Pain Scale Used 0-10 Pain Scale Intake and Output: Intake & Output 05/31/16 06/01/16 06/02/16 06/03/16 11:59 11:59 11:59 11:59 Intake Total 2910 1028 3131 Output Total 400 60 200 Balance 2510 968 2931 Weight 56.971 kg 58.332 kg 58.287 kg Lab Results: Lab Results-Last 24 Hours 06/01/16 06/01/16 06/02/16 Range/Units 11:00 11:00 05:47 WBC 8.1 10.1 (4.0-10.5) K/mm3 RBC 4.19 4.27 (4.1-5.4) M/mm3 Hgb 12.9 13.3 (12.0-16.0) gm/dl Hct 38.3 38.3 (35-47) % MCV 91.4 89.7 (78-100) fl MCH 30.8 31.1 (26-32) pg MCHC 33.7 34.7 (32-36) g/dl RDW 12.2 12.2 (11.5-14.0) % Plt Count 226 245 (150-450) K/mm3 MPV 11.0 H 10.1 H (6-9.5) fl Gran % 68.7 H (36.0-66.0) % Lymphocytes % 23.0 L (24.0-44.0) % Monocytes % 6.0 (0.0-12.0) % Eosinophils % 1.7 (0.00-5.0) % Basophils % 0.6 (0.0-0.4) % Basophils # 0.05 (0-0.4) Sodium 142 (136-145) mEq/L Potassium 3.9 (3.5-5.1) mEq/L Chloride 106 (98-107) mEq/L Carbon Dioxide 18.2 L (21-32) mEq/L Anion Gap 22.0 H (5-15) MEQ/L BUN 2 L (9-20) mg/dL Creatinine 0.79 (0.55-1.30) mg/dl Estimated GFR > 60 ML/MIN Glucose 52 L (70-110) MG/DL Calcium 8.9 (8.5-10.1) mg/dL Total Bilirubin 0.5 (0.2-1.0) mg/dL AST 24 (15-37) U/L ALT 15 (12-78) U/L Alkaline Phosphatase 86 (46-116) U/L Serum Total Protein 7.0 (6.4-8.2) gm/dL Albumin 3.8 (3.4-5.0) g/dL Assessment/Plan (1) Status post cholecystectomy Current Visit: Yes Status: Acute Assessment & Plan: POD #1. doing very well, I suspect she will be d/c home today by surgery. Pravin po and up out of bed. Code(s): Z90.49 - ACQUIRED ABSENCE OF OTHER SPECIFIED PARTS OF DIGESTIVE TRACT (2) Nausea & vomiting Current Visit: No Status: Resolved Code(s): R11.2 - NAUSEA WITH VOMITING, UNSPECIFIED (3) Crohn disease Current Visit: Yes Status: Chronic Code(s): K50.90 - CROHN'S DISEASE, UNSPECIFIED, WITHOUT COMPLICATIONS (4) Dysuria Current Visit: Yes Status: Acute Code(s): R30.0 - DYSURIA (5) Chest pain Current Visit: Yes Status: Resolved Qualifiers: Chest pain type: unspecified Qualified Code(s): R07.9 - Chest pain, unspecified Code(s): R07.9 - CHEST PAIN, UNSPECIFIED (6) Pruritic condition Current Visit: Yes Status: Acute Assessment & Plan: no c/o today. Code(s): L29.9 - PRURITUS, UNSPECIFIED
--- NOTE | 2016-06-02 12:21 | PCM.DS ---
Discharge Summary Date of Admission: 05/29/16 19:51 Admitting Physician: ROSE HOWARD Consults: Consults on Case 05/31/16 13:18 Consult Surgery ROUTINE Primary Care Provider: PENNY CHENG Allergies Allergies adhesive tape Allergy (Intermediate, Verified 06/01/16 01:03) Blisters paroxetine HCl [From Paxil] Adverse Reaction (Verified 05/29/16 17:41) Nausea Hospital Summary - Hospital Course Hospital Course: Admitted with RUQ/epigastric pain radiating to the chest. Troponins negative, u/ s gallbladder negative, HIDA scan with EF 12%. Cholecystectomy done yesterday, pt tolerated very well, abd pain is post-surgical soreness today with no nausea/ vomiting. Tolerating po and walking; ready to go home. She has c/o insomnia. Tried ambien here with good results. She would like medicine at home. Would like for her to try melatonin first, if that is not effective would consider trazodone. - Vitals & Intake/Output Vital Signs: Vital Signs Temperature 98.3 F 06/02/16 12:00 Pulse Rate 113 H 06/02/16 12:00 Respiratory Rate 18 06/02/16 12:00 Blood Pressure 99/59 06/02/16 12:00 O2 Sat by Pulse Oximetry 98 06/02/16 12:00 Intake & Output: Intake & Output 05/31/16 06/01/16 06/02/16 06/03/16 11:59 11:59 11:59 11:59 Intake Total 2910 1028 3131 Output Total 400 60 200 Balance 2510 968 2931 Weight 56.971 kg 58.332 kg 58.287 kg - Lab Result Diagrams: 06/02/16 05:47 06/01/16 11:00 Lab Results-Last 24 Hrs: Lab Results-Last 24 Hours 06/01/16 06/01/16 06/02/16 Range/Units 11:00 11:00 05:47 WBC 8.1 10.1 (4.0-10.5) K/mm3 RBC 4.19 4.27 (4.1-5.4) M/mm3 Hgb 12.9 13.3 (12.0-16.0) gm/dl Hct 38.3 38.3 (35-47) % MCV 91.4 89.7 (78-100) fl MCH 30.8 31.1 (26-32) pg MCHC 33.7 34.7 (32-36) g/dl RDW 12.2 12.2 (11.5-14.0) % Plt Count 226 245 (150-450) K/mm3 MPV 11.0 H 10.1 H (6-9.5) fl Gran % 68.7 H (36.0-66.0) % Lymphocytes % 23.0 L (24.0-44.0) % Monocytes % 6.0 (0.0-12.0) % Eosinophils % 1.7 (0.00-5.0) % Basophils % 0.6 (0.0-0.4) % Basophils # 0.05 (0-0.4) Sodium 142 (136-145) mEq/L Potassium 3.9 (3.5-5.1) mEq/L Chloride 106 (98-107) mEq/L Carbon Dioxide 18.2 L (21-32) mEq/L Anion Gap 22.0 H (5-15) MEQ/L BUN 2 L (9-20) mg/dL Creatinine 0.79 (0.55-1.30) mg/dl Estimated GFR > 60 ML/MIN Glucose 52 L (70-110) MG/DL Calcium 8.9 (8.5-10.1) mg/dL Total Bilirubin 0.5 (0.2-1.0) mg/dL AST 24 (15-37) U/L ALT 15 (12-78) U/L Alkaline Phosphatase 86 (46-116) U/L Serum Total Protein 7.0 (6.4-8.2) gm/dL Albumin 3.8 (3.4-5.0) g/dL - Procedures and Test Procedures and Tests throughout Hospitalization: Therapy Orders & Screens 05/30/16 01:30 EKG ROUTINE Comment: Diagnosis: epigastric pain, Chest pain R/O 05/31/16 05:00 EKG DAILY Comment: Diagnosis: epigastric pain, Chest pain R/O 06/01/16 05:00 EKG DAILY Comment: Diagnosis: epigastric pain, Chest pain R/O 06/01/16 17:10 Incentive Spirometry Assessmen UD Comment: post op Diagnosis: epigastric pain, Chest pain R/O 06/02/16 05:00 EKG DAILY Comment: Diagnosis: epigastric pain, Chest pain R/O Discharge Exam General Appearance: no apparent distress Neurologic Exam: alert, oriented x 3, cooperative Skin Exam: normal color, warm, dry Respiratory Exam: normal breath sounds, lungs clear, No crackles/rales, No rhonchi, No wheezing Cardiovascular Exam: regular rate/rhythm, normal heart sounds Gastrointestinal/Abdomen Exam: soft, tenderness (generalized), other (post surgical wounds c/d/i), No distention Extremity Exam: No pedal edema, No swelling Final Diagnosis/Problem List - Final Discharge Diagnosis/Problem (1) Status post cholecystectomy Current Visit: Yes Status: Acute Assessment & Plan: POD #1, doing great, likely home today, surgery to see pt. (2) Crohn disease Current Visit: Yes Status: Chronic (3) Dysuria Current Visit: Yes Status: Acute Assessment & Plan: treated for yeast infection. UA wnl. f/u in office. (4) Chest pain Current Visit: Yes Status: Resolved (5) Pruritic condition Current Visit: Yes Status: Acute Assessment & Plan: no c/o currently. re-eval outpatient. - Discharge Disposition: Home, Self-Care Condition: Good Prescriptions: New Melatonin/Pyridoxine HCl (B6) [Melatonin 3 mg Tablet] 1 each PO QHS PRN #30 tablet PRN Reason: Insomnia Miconazole Nitrate [Monistat 7] 1 ea VG DAILY #0 box Ondansetron [Zofran Odt] 4 mg PO Q4H PRN #15 tab.rapdis PRN Reason: Nausea Continue Buspirone HCl 5 mg [Buspar 5 mg] 5 mg PO BID Fluticasone Propionate [Flonase NASAL] 16 gm NS DAILY Nystatin/TCN/Hc/Diphenhydram [Leslie's Magic Mouthwash] 5 ml PO TID Instructions: Cholecystectomy, Postoperative Pain Follow up with: PENNY CHENG [Primary Care Provider] - Forms: Patient Portal Information
[2016-06-02 12:47] VITALS: PULSE 112; O2SAT 96
== END 2016-06-02 14:45 | disposition home or self-care (01) ==
LOC: ED 17:28 → ICU 19:51 → MED SURG 05-30 15:58
PROVIDERS: ADMIT Family Medicine; ATTEND Family Medicine
PROC: 0FT44ZZ Resection of Gallbladder, Percutaneous Endoscopic Approach (ICD-10-PCS; principal; 2016-06-01)
DX: K80.10 Calculus of gallbladder with chronic cholecystitis without obstruction (principal); K50.90 Crohn's disease, unspecified, without complications; Z90.49 Acquired absence of other specified parts of digestive tract; R30.0 Dysuria; R07.9 Chest pain, unspecified; R10.13 Epigastric pain; L29.9 Pruritus, unspecified; E86.0 Dehydration; J45.909 Unspecified asthma, uncomplicated; K21.9 Gastro-esophageal reflux disease without esophagitis; F32.4 Major depressive disorder, single episode, in partial remission
CPT/HCPCS: 36415; 71010; 76705; 78226; 80053; 80061; 81002; 82150; 83690; 83721; 84484; 84703; 85025; 85027; 85379; 87491; 87591; 90686; 90732; 93005; 93041; 93268; 94760; 96360; 96374; 99284; A9537; G0008; G0378; J0330; J0694; J1100; J1170; J1200; J1650; J1885; J2270; J2405; J2550; J2704; J2805; J3010

== ENCOUNTER 2016-06-10 19:14 | Emergency (ER) | payer MEDICAID ==
[2016-06-10] MEDS ORDERED: Phenergan 25 MG INJ IV ONE (19:31)
[2016-06-10] MEDS ORDERED: Hydromorphone 1 mg/ml Ampule IV ONE (19:31)
[2016-06-10] MEDS ORDERED: Sodium Chloride 0.9% 1000 ML 1,000 ML IV STA (19:31)
--- NOTE | 2016-06-10 19:34 | ERPHSYRPT ---
- History of Present Illness Time Seen by Provider: 06/10/16 19:25 Historian: patient Exam Limitations: no limitations Patient Subjective Stated Complaint: vomiting at 0800 this morning - unable to take regular medications - states that she is 9 days s/p cholecystectomy Triage Nursing Assessment: ambulatory to treatment area - steady gait - moves all extremities with equal strength - restless et fidgety. alert/oriented - anxious affect. skin pwd - no rash/injury. resps easy - non-labored Physician History: NINE DAYS AGO PT UNDERWENT A CHOLECYSTECTOMY BY DR LOVE AND SINCE HAS HAD INTERMITTENT SHARP GENERALIZED ABDOMINAL PAIN LASTING UP TO 5 MINUTES PER EPISODE. FOR THE PAST 2 DAYS PT HAS HAD A FRONTAL HEADACHE; FOR THE PAST 11.5 HOURS DYSURIA, FINE TREMORS AT REST OF ALL EXTREMITIES AND VOMITING X5 WITHOUT BLOOD; FOR THE PAST 7.5 HOURS CHILLS AND DIAPHORESIS; FOR THE PAST 30 MINUTES CHEST PRESSURE AND DYSURIA. Allergies/Adverse Reactions: adhesive tape Allergy (Intermediate, Verified 06/10/16 19:17) Blisters paroxetine HCl [From Paxil] Adverse Reaction (Verified 06/10/16 19:17) Nausea Home Medications: Buspirone HCl 5 mg [Buspar 5 mg] 5 mg PO BID 04/16/16 [History] Fluticasone Propionate [Flonase NASAL] 16 gm NS DAILY 05/29/16 [History] Nystatin/TCN/Hc/Diphenhydram [Leslie's Magic Mouthwash] 5 ml PO TID 05/29/16 [History] Hx Tetanus, Diphtheria Vaccination/Date Given: Yes Hx Influenza Vaccination/Date Given: No Hx Pneumococcal Vaccination/Date Given: No Immunizations Up to Date: Yes - Review of Systems Constitutional: Chills, No Fever Respiratory: Dyspnea Cardiac: Other (CHEST PRESSURE) Abdominal/Gastrointestinal: Abdominal Pain, Vomiting Genitourinary Symptoms: Dysuria Neurological: Headache, Other (FINE TREMORS) Endocrine: Excessive Sweating All Other Systems: Reviewed and Negative - Past Medical History Pertinent Past Medical History: Yes Neurological History: Migraines ENT History: No Pertinent History Cardiac History: No Pertinent History Respiratory History: Asthma Endocrine Medical History: No Pertinent History Musculoskeletal History: No Pertinent History GI Medical History: Crohns Disease, GERD, Irritable Bowel History: No Pertinent History, Other Psycho-Social History: Depression Female Reproductive Disorders: Other Other Medical History: MONO. IRRITABLE BOWEL. - Past Surgical History Past Surgical History: Yes Neuro Surgical History: No Pertinent History Cardiac: No Pertinent History Respiratory: No Pertinent History Gastrointestinal: No Pertinent History, Cholecystectomy Genitourinary: No Pertinent History, Other Musculoskeletal: Orthopedic Surgery Female Surgical History: No Pertinent History Other Surgical History: right rotator cuff repair. Ear tubes bilat - Social History Smoking Status: Former smoker Exposure to second hand smoke: No Drug Use: none Patient Lives Alone: No Significant Family History: no pertinent family hx - Female History Hx Last Menstrual Period: 05/21/2016 Hx Now: (UNKNOWN) - Nursing Vital Signs Nursing Vital Signs: Initial Vital Signs Temperature 98.5 F Temperature Source Oral Pulse Rate 90 Respiratory Rate 18 Blood Pressure [] 124/70 Pain Intensity 5 - Physical Exam General Appearance: alert Eye Exam: PERRL/EOMI Ears, Nose, Throat Exam: TMs normal, moist mucous membranes, pharyngeal erythema (MILD) Neck Exam: normal inspection Respiratory Exam: lungs clear, airway intact Cardiovascular Exam: normal heart sounds Gastrointestinal/Abdomen Exam: soft, normal bowel sounds, tenderness (MILD SUPRAPUBIC AND RUQ ABDOMINAL TENDERNESS) Back Exam: normal range of motion Extremity Exam: normal range of motion, No pedal edema Neurologic Exam: alert, cooperative Skin Exam: warm, dry SpO2 Interpretation: normal SpO2: 96 Oxygen Delivery: Room Air - Course Nursing assessment & vital signs reviewed: Yes EKG Interpreted by Me: RATE (115), Sinus Tach, NORMAL AXIS, NORMAL INTERVALS - Radiology Exams Chest X-ray Interpretation: Interpreted by me, No Pneumonia - CT Exams Abdomen/Pelvis CT Interpretation: Tele-radiologist Report (LARGE LESION OF THE RIGHT OVARY IS SEEN WHICH IS OF WATER DENSITY. FOLLOW UP IS SUGGESTED.) - Radiology Ultrasound Exam Pelvis Ultrasound: Other (TECH REPORT: 5 CM RIGHT OVARIAN CYST WITHOUT TORSION.) Ordered Tests: Active Orders 24 hr Category Date Time Status Clean Catch Urine Specimen STAT Care 06/10/16 19:31 Active EKG-ER Only STAT Care 06/10/16 19:34 Active IV Insertion STAT Care 06/10/16 19:31 Active ABDOMEN AND PELVIS W/0 CONTRAS [CT] Stat Exams 06/10/16 19:32 Taken CHEST 1 VIEW (PORTABLE) Stat Exams 06/10/16 19:35 Taken PELVIC [US] Stat Exams 06/10/16 21:21 Taken AMYLASE Stat Lab 06/10/16 19:40 Completed CBC W DIFF Stat Lab 06/10/16 19:40 Completed CMP Stat Lab 06/10/16 19:40 Completed CULTURE, THROAT Stat Lab 06/10/16 20:07 Received HCG QUALITATIVE,SERUM Stat Lab 06/10/16 19:40 Completed LIPASE Stat Lab 06/10/16 19:40 Completed MAGNESIUM Stat Lab 06/10/16 19:40 Completed [place] Screen Stat Lab 06/10/16 19:40 Completed STREP SCREEN-BETA A Stat Lab 06/10/16 20:07 Completed TROPONIN Stat Lab 06/10/16 19:40 Completed UA Stat Lab 06/10/16 19:32 Completed Medication Summary Generic Name Dose Route Start Last Admin Trade Name Freq PRN Reason Stop Dose Admin Magnesium Oxide 400 mg 06/10/16 22:00 06/10/16 21:22 Mag-Ox 400 PO 07/10/16 21:59 400 mg BID ROSALINDA Administration Discontinued Medications Generic Name Dose Route Start Last Admin Trade Name Freq PRN Reason Stop Dose Admin Hydromorphone HCl 1 mg 06/10/16 19:31 06/10/16 19:48 Hydromorphone 1 Mg/Ml Ampule IV 06/10/16 19:32 1 mg STAT ONE Administration Hydromorphone HCl Confirm 06/10/16 19:42 Hydromorphone 1 Mg/Ml Ampule Administered 06/10/16 19:43 Dose 1 mg .ROUTE .STK-MED ONE Sodium Chloride 1,000 mls @ 999 mls/hr 06/10/16 19:31 06/10/16 19:48 Sodium Chloride 0.9% 1000 Ml IV 06/10/16 20:31 999 mls/hr .Q1H1M STA Administration Sodium Chloride Confirm 06/10/16 19:42 Sodium Chloride 0.9% 1000 Ml Administered 06/10/16 19:43 Dose 1,000 mls @ ud .ROUTE .STK-MED ONE Magnesium Oxide Confirm 06/10/16 21:19 Mag-Ox 400 Administered 06/10/16 21:20 Dose 400 mg .ROUTE .STK-MED ONE Promethazine HCl 12.5 mg 06/10/16 19:31 06/10/16 19:48 Phenergan 25 Mg Inj IV 06/10/16 19:32 12.5 mg STAT ONE Administration Promethazine HCl Confirm 06/10/16 19:41 Phenergan 25 Mg Inj Administered 06/10/16 19:42 Dose 25 mg .ROUTE .STK-MED ONE Lab/Rad Data: Laboratory Result Diagrams 06/10/16 19:40 06/10/16 19:40 Laboratory Results 06/10/16 06/10/16 06/10/16 Range/Units 20:07 19:40 19:40 WBC (4.0-10.5) K/mm3 RBC (4.1-5.4) M/mm3 Hgb (12.0-16.0) gm/dl Hct (35-47) % MCV (78-100) fl MCH (26-32) pg MCHC (32-36) g/dl RDW (11.5-14.0) % Plt Count (150-450) K/mm3 MPV (6-9.5) fl Gran % (36.0-66.0) % Lymphocytes % (24.0-44.0) % Monocytes % (0.0-12.0) % Eosinophils % (0.00-5.0) % Basophils % (0.0-0.4) % Basophils # (0-0.4) Sodium (136-145) mEq/L Potassium (3.5-5.1) mEq/L Chloride (98-107) mEq/L Carbon Dioxide (21-32) mEq/L Anion Gap (5-15) MEQ/L BUN (9-20) mg/dL Creatinine (0.55-1.30) mg/dl Estimated GFR ML/MIN Glucose (70-110) MG/DL Calcium (8.5-10.1) mg/dL Magnesium (1.8-2.4) mg/dL Total Bilirubin (0.2-1.0) mg/dL AST (15-37) U/L ALT (12-78) U/L Alkaline Phosphatase (46-116) U/L Troponin I < 0.017 (0.000-0.056) ng/ml Serum Total Protein (6.4-8.2) gm/dL Albumin (3.4-5.0) g/dL Amylase (25-115) U/L Lipase (73-393) U/L Serum , Qual (Negative) Ur Collection Type Urine Color (YELLOW) Urine Appearance (CLEAR) Urine pH (5-6) Ur Specific [place] (1.005-1.025) Urine Protein (Negative) Urine Glucose (UA) (NEGATIVE) mg/dL Urine Ketones (NEGATIVE) Urine Nitrite (NEGATIVE) Urine Bilirubin (NEGATIVE) Urine Urobilinogen (0-1) mg/dL Urine WBC (Auto) (NEGATIVE) Urine RBC (Auto) (0-5) [place]/ul Monoscreen POSITIVE (Negative) Streptococcus Screen NEGATIVE (Negative) Specimen Received 06/10/16 06/10/16 06/10/16 Range/Units 19:40 19:40 19:40 WBC 8.9 (4.0-10.5) K/mm3 RBC 4.43 (4.1-5.4) M/mm3 Hgb 14.0 (12.0-16.0) gm/dl Hct 40.9 (35-47) % MCV 92.3 (78-100) fl MCH 31.6 (26-32) pg MCHC 34.2 (32-36) g/dl RDW 12.7 (11.5-14.0) % Plt Count 290 (150-450) K/mm3 MPV 9.6 H (6-9.5) fl Gran % 61.7 (36.0-66.0) % Lymphocytes % 30.8 (24.0-44.0) % Monocytes % 6.9 (0.0-12.0) % Eosinophils % 0.3 (0.00-5.0) % Basophils % 0.3 (0.0-0.4) % Basophils # 0.03 (0-0.4) Sodium 140 (136-145) mEq/L Potassium 3.8 (3.5-5.1) mEq/L Chloride 103 (98-107) mEq/L Carbon Dioxide 25.0 (21-32) mEq/L Anion Gap 16.0 H (5-15) MEQ/L BUN 9 (9-20) mg/dL Creatinine 0.83 (0.55-1.30) mg/dl Estimated GFR > 60 ML/MIN Glucose 87 (70-110) MG/DL Calcium 9.5 (8.5-10.1) mg/dL Magnesium 1.7 L (1.8-2.4) mg/dL Total Bilirubin 0.6 (0.2-1.0) mg/dL AST 16 (15-37) U/L ALT 26 (12-78) U/L Alkaline Phosphatase 88 (46-116) U/L Troponin I (0.000-0.056) ng/ml Serum Total Protein 7.7 (6.4-8.2) gm/dL Albumin 4.1 (3.4-5.0) g/dL Amylase 85 (25-115) U/L Lipase 147 (73-393) U/L Serum , Qual NEGATIVE (Negative) Ur Collection Type Urine Color (YELLOW) Urine Appearance (CLEAR) Urine pH (5-6) Ur Specific [place] (1.005-1.025) Urine Protein (Negative) Urine Glucose (UA) (NEGATIVE) mg/dL Urine Ketones (NEGATIVE) Urine Nitrite (NEGATIVE) Urine Bilirubin (NEGATIVE) Urine Urobilinogen (0-1) mg/dL Urine WBC (Auto) (NEGATIVE) Urine RBC (Auto) (0-5) [place]/ul Monoscreen (Negative) Streptococcus Screen (Negative) Specimen Received 06/10/16 Range/Units 19:32 WBC (4.0-10.5) K/mm3 RBC (4.1-5.4) M/mm3 Hgb (12.0-16.0) gm/dl Hct (35-47) % MCV (78-100) fl MCH (26-32) pg MCHC (32-36) g/dl RDW (11.5-14.0) % Plt Count (150-450) K/mm3 MPV (6-9.5) fl Gran % (36.0-66.0) % Lymphocytes % (24.0-44.0) % Monocytes % (0.0-12.0) % Eosinophils % (0.00-5.0) % Basophils % (0.0-0.4) % Basophils # (0-0.4) Sodium (136-145) mEq/L Potassium (3.5-5.1) mEq/L Chloride (98-107) mEq/L Carbon Dioxide (21-32) mEq/L Anion Gap (5-15) MEQ/L BUN (9-20) mg/dL Creatinine (0.55-1.30) mg/dl Estimated GFR ML/MIN Glucose (70-110) MG/DL Calcium (8.5-10.1) mg/dL Magnesium (1.8-2.4) mg/dL Total Bilirubin (0.2-1.0) mg/dL AST (15-37) U/L ALT (12-78) U/L Alkaline Phosphatase (46-116) U/L Troponin I (0.000-0.056) ng/ml Serum Total Protein (6.4-8.2) gm/dL Albumin (3.4-5.0) g/dL Amylase (25-115) U/L Lipase (73-393) U/L Serum , Qual (Negative) Ur Collection Type CLEAN CATCH Urine Color YELLOW (YELLOW) Urine Appearance CLEAR (CLEAR) Urine pH 6.0 (5-6) Ur Specific [place] 1.015 (1.005-1.025) Urine Protein NEGATIVE (Negative) Urine Glucose (UA) NEGATIVE (NEGATIVE) mg/dL Urine Ketones SMALL-15 (NEGATIVE) Urine Nitrite NEGATIVE (NEGATIVE) Urine Bilirubin NEGATIVE (NEGATIVE) Urine Urobilinogen 0.2 (0-1) mg/dL Urine WBC (Auto) NEGATIVE (NEGATIVE) Urine RBC (Auto) NEGATIVE (0-5) [place]/ul Monoscreen (Negative) Streptococcus Screen (Negative) Specimen Received [id number] - Departure Time of Disposition: 22:06 Departure Disposition: Home Clinical Impression: ABDOMINAL PAIN, INFECTIOUS MONONUCLEOSIS, MILD HYPOMAGNESEMIA, 5 CM RIGHT OVARY CYST WITHOUT TORSION, VOMITING, CROHN'S DISEASE, IBS, GERD, DEPRESSION Condition: Fair Critical Care Time: No Referrals: PENNY CHENG [Primary Care Provider] - Instructions: Abdominal Pain-Adult, Ovarian Cyst, Mononucleosis Additional Instructions: FOLLOW UP WITH PRIVATE DOCTOR TOMORROW. START CLEAR LIQUIDS FOR 24 HOURS FOLLOWED BY A SOFT BLAND DIET. NO MILK OR JUICE FOR 2 DAYS. Prescriptions: Ondansetron [Zofran Odt] 4 mg PO Q4H PRN PRN #14 tab.rapdis PRN Reason: Nausea/Vomiting
[2016-06-10] MEDS ORDERED: Phenergan 25 MG INJ ONE (19:41)
[2016-06-10] MEDS ORDERED: Sodium Chloride 0.9% 1000 ML 1,000 ML ONE (19:42)
[2016-06-10] MEDS ORDERED: Hydromorphone 1 mg/ml Ampule ONE (19:42)
[2016-06-10 19:52] LABS: BASOPHIL % 0.3 % (0.0-0.4); Eosinophil % 0.3 % (0.00-5.0); Granulocytes % 61.7 % (36.0-66.0); Lymphocytes % 30.8 % (24.0-44.0); Mean Cell Volume 92.3 fl (78-100); Mean Corpuscular Hemoglobin 31.6 pg (26-32); Mean Platelet Volume 9.6 fl (6-9.5); Monocytes % 6.9 % (0.0-12.0); Platelet Count 290 K/mm3 (150-450); Red Blood Count 4.43 M/mm3 (4.1-5.4); Red Cell Distribution Width 12.7 % (11.5-14.0); White Blood Count 8.9 K/mm3 (4.0-10.5)
[2016-06-10 20:21] LABS: COMPLETE URINE MICROSCOPIC? NO; Collection Type CLEAN CATCH
[2016-06-10 20:33] LABS: ALBUMIN 4.1 g/dL (3.4-5.0); ALKALINE PHOSPHATASE 88 U/L (46-116); BILIRUBIN,TOTAL 0.6 mg/dL (0.2-1.0); BLOOD UREA NITROGEN 9 mg/dL (9-20); CHLORIDE 103 mEq/L (98-107); Glucose 87 MG/DL (70-110); LIPASE 147 U/L (73-393); MAGNESIUM 1.7 mg/dL (1.8-2.4); Potassium 3.8 mEq/L (3.5-5.1); SGOT/AST 16 U/L (15-37); SGPT/ALT 26 U/L (12-78); SODIUM 140 mEq/L (136-145); Total Protein 7.7 gm/dL (6.4-8.2)
[2016-06-10] MEDS ORDERED: MAG-OX 400 ONE (21:19)
[2016-06-10 21:56] VITALS: PULSE 90
[2016-06-10] MEDS ORDERED: MAG-OX 400 PO SCH (22:00)
[2016-06-10 22:16] VITALS: BP 101/67; O2SAT 99
--- NOTE | 2016-06-11 08:37 | XRAY ---
Indication: Emesis. Status post cholecystectomy 10 days ago. Multiple contiguous axial images obtained through the abdomen and pelvis without contrast as ordered. Comparison: April 16, 2016 Lung bases remaining clear. Heart is not enlarged. There has been interval cholecystectomy. New 6 cm right adnexal cystic mass presumed ovary in etiology. Tiny cul-de-sac fluid presumed ruptured/leaking cyst. No free air. Noncontrasted stomach and bowel loops appear nonobstructed. Normal air-filled appendix. Remaining liver, pancreas, spleen, adrenal glands, kidneys, ureters, bladder, and aorta unremarkable for noncontrast exam. Osseous structures intact. Impression: 6 cm right adnexal cystic mass presumed ovary in etiology. Tiny cul-de-sac fluid probably from ruptured/leaking cyst. Pelvic ultrasound may yield further information if clinically warranted. Remaining CT abdomen/pelvis without contrast exam is negative. Comment: Preliminary interpretation was made by [facility]. No discrepancy. CT DI 10.76
--- NOTE | 2016-06-11 08:39 | XRAY ---
Indication: Short of breath. Emesis. Comparison: May 29, 2016. Portable chest again demonstrates normal heart, lungs, and bony thorax.
--- NOTE | 2016-06-11 08:41 | XRAY ---
Indication: Pain. Right adnexal cystic mass on same-day CT exam. Two-dimensional transabdominal only pelvic ultrasound was performed. Comparison: January 12, 2016. Urinary bladder not adequately distended producing poor acoustic window. Uterus is anteverted measuring 6.0 x 3.1 x 3.7 cm. No focal solid/cystic mass. Endometrial stripe measures 7.1 mm in thickness. No endometrial cavity mass or fluid collection. Right ovary measures 6.1 x 5.7 x 6.0 cm and demonstrates a 5.1 cm anechoic simple cyst. Left ovary measures 2.1 x 1.5 x 2.2 cm. Normal color flow bilaterally. No suspicious solid adnexal mass or free fluid. Impression: 5.1 cm right ovary cyst for which follow-up is recommended. Remaining uterus and left ovary sonographically unremarkable. Comment: Preliminary report was given.
== END 2016-06-10 22:16 | disposition home or self-care (01) ==
LOC: ED 19:14
DX: R10.9 Unspecified abdominal pain (principal); B27.90 Infectious mononucleosis, unspecified without complication; E83.42 Hypomagnesemia; N83.291 Other ovarian cyst, right side; R11.2 Nausea with vomiting, unspecified; R11.10 Vomiting, unspecified; K50.90 Crohn's disease, unspecified, without complications; K58.9 Irritable bowel syndrome, unspecified; K21.9 Gastro-esophageal reflux disease without esophagitis; F32.9 Major depressive disorder, single episode, unspecified; Z98.890 Other specified postprocedural states
CPT/HCPCS: 36000; 36415; 71010; 74176; 76856; 80053; 81002; 82150; 83690; 83735; 84484; 84703; 85025; 86308; 87070; 87430; 93005; 96360; 96374; 96375; 99284; 99285; J1170; J2550

== ENCOUNTER 2016-06-20 13:30 | Emergency (ER) | payer MEDICAID ==
[2016-06-20 13:48] VITALS: O2SAT 100
[2016-06-20 13:48] LABS: COMPLETE URINE MICROSCOPIC? YES; Collection Type CLEAN CATCH; Ph 8.5 (5-6)
[2016-06-20 13:54] LABS: Mucus SLIGHT /HPF (NEGATIVE)
[2016-06-20 13:55] LABS: Bacteria FEW /HPF (NEGATIVE); Epithelial Cells FEW /HPF (FEW)
[2016-06-20] MEDS ORDERED: Zofran 4 MG/2 ML VIAL IV ONE (14:18)
[2016-06-20] MEDS ORDERED: Hydromorphone 1 mg/ml Ampule IV ONE (14:18)
[2016-06-20] MEDS ORDERED: Sodium Chloride 0.9% 1000 ML 1,000 ML IV STA (14:18)
[2016-06-20] MEDS ORDERED: Sodium Chloride 0.9% 1000 ML 1,000 ML ONE (14:24)
[2016-06-20] MEDS ORDERED: Hydromorphone 1 mg/ml Ampule ONE (14:24)
[2016-06-20] MEDS ORDERED: Zofran 4 MG/2 ML VIAL ONE (14:24)
--- NOTE | 2016-06-20 14:24 | ERPHSYRPT ---
- History of Present Illness Time Seen by Provider: 06/20/16 13:40 Historian: patient, family (mother) Patient Subjective Stated Complaint: pt co abd pain and nausea vomiting since 0900 today, fever 99 at home, pt had surg to remove ovarian cyst on sat, Triage Nursing Assessment: pt has incision across lower abd with kayla in tacet, well approximated, no redness or swelling, abd soft. bm 2 days ago. voiding well . pt alert, pale, skin w/d.resp easy Physician History: CC: abd pain Hx: 20 y/o patient of Dr Sol. She had cholecystectomy [address] Long Borrero. She had continued abd pain. She had ovarian cyst removed Friday (5 days ago) at [facility] per Dr Orellana. She was admitted in the hospital. She had low grade fever. Was doing well. Yesterday had malaise. Today has abd pain, vomiting. She feels worse. Unable to keep her nausea or pain medications down. Reports diagnosis of crohns but has never been treated. No diarrhea. Normal urination. Timing/Duration: today Severity of Pain-Max: moderate Severity of Pain-Current: moderate Allergies/Adverse Reactions: adhesive tape Allergy (Intermediate, Verified 06/20/16 13:49) Blisters paroxetine HCl [From Paxil] Adverse Reaction (Verified 06/20/16 13:49) Nausea Home Medications: Buspirone HCl 5 mg [Buspar 5 mg] 5 mg PO BID 04/16/16 [History] Fluticasone Propionate [Flonase NASAL] 16 gm NS DAILY 05/29/16 [History] Hx Tetanus, Diphtheria Vaccination/Date Given: Yes Hx Influenza Vaccination/Date Given: Yes Hx Pneumococcal Vaccination/Date Given: No - Review of Systems Constitutional: No Fever, No Chills Eyes: No Symptoms Ears, Nose, & Throat: No Symptoms Respiratory: No Cough, No Dyspnea Cardiac: No Chest Pain Abdominal/Gastrointestinal: Abdominal Pain, Nausea, Vomiting, No Diarrhea Genitourinary Symptoms: No Dysuria Musculoskeletal: No Back Pain Skin: No Rash Neurological: No Headache All Other Systems: Reviewed and Negative - Past Medical History Pertinent Past Medical History: Yes Neurological History: Migraines ENT History: No Pertinent History Cardiac History: No Pertinent History Respiratory History: Asthma Endocrine Medical History: No Pertinent History Musculoskeletal History: No Pertinent History GI Medical History: Crohns Disease, GERD, Irritable Bowel History: No Pertinent History, Other Psycho-Social History: Depression Female Reproductive Disorders: Other Other Medical History: Reports Crohns - Past Surgical History Past Surgical History: Yes Neuro Surgical History: No Pertinent History Cardiac: No Pertinent History Respiratory: No Pertinent History Gastrointestinal: No Pertinent History, Cholecystectomy Genitourinary: No Pertinent History, Other Musculoskeletal: Orthopedic Surgery Female Surgical History: No Pertinent History Other Surgical History: right rotator cuff repair. Ear tubes bilat,ovarian cyst 2017 - Social History Smoking Status: Former smoker Exposure to second hand smoke: Yes Drug Use: marijuana Patient Lives Alone: No Significant Family History: no pertinent family hx - Female History Hx Last Menstrual Period: may 2016 Hx Now: (UNKNOWN) - Nursing Vital Signs Nursing Vital Signs: Initial Vital Signs Temperature 98.0 F Temperature Source Oral Pulse Rate 108 Respiratory Rate 16 Blood Pressure [] 115/72 Pain Intensity 10 - Physical Exam General Appearance: alert, thin Eye Exam: PERRL/EOMI Ears, Nose, Throat Exam: normal ENT inspection, moist mucous membranes Neck Exam: normal inspection, non-tender, supple Respiratory Exam: normal breath sounds, lungs clear, No respiratory distress Cardiovascular Exam: regular rate/rhythm, No murmur Gastrointestinal/Abdomen Exam: soft, tenderness (diffuse), guarding, other ( lower abdominal incision intact with no redness or drng), No distention, No mass Back Exam: normal inspection Extremity Exam: normal inspection, normal range of motion, No calf tenderness, No pedal edema Neurologic Exam: alert, oriented x 3, cooperative, sensation nml, No motor deficits Skin Exam: warm, dry, No rash SpO2 Interpretation: normal SpO2: 100 Oxygen Delivery: Room Air - Course Nursing assessment & vital signs reviewed: Yes - CT Exams abd/pelvis CT Interpretation: Tele-radiologist Report (negative) Ordered Tests: Active Orders 24 hr Category Date Time Status IV Insertion STAT Care 06/20/16 14:18 Active ABDOMEN AND PELVIS W CONTRAST [CT] Stat Exams 06/20/16 14:18 Completed CBC W DIFF Stat Lab 06/20/16 14:18 Completed CMP Stat Lab 06/20/16 14:18 Completed HCG,QUALITATIVE URINE Stat Lab 06/20/16 13:41 Completed LIPASE Stat Lab 06/20/16 14:18 Completed Lactic Acid Urgent Lab 06/20/16 14:40 Completed Manual Differential NC Stat Lab 06/20/16 14:18 Completed UA W/ MICROSCOPIC Stat Lab 06/20/16 13:41 Completed Medication Summary Discontinued Medications Generic Name Dose Route Start Last Admin Trade Name Dimple PRN Reason Stop Dose Admin Hydromorphone HCl 1 mg 06/20/16 14:18 06/20/16 14:27 Hydromorphone 1 Mg/Ml Ampule IV 06/20/16 14:19 1 mg STAT ONE Administration Hydromorphone HCl Confirm 06/20/16 14:24 Hydromorphone 1 Mg/Ml Ampule Administered 06/20/16 14:25 Dose 1 mg .ROUTE .STK-MED ONE Sodium Chloride 1,000 mls @ 999 mls/hr 06/20/16 14:18 06/20/16 14:27 Sodium Chloride 0.9% 1000 Ml IV 06/20/16 15:18 999 mls/hr .Q1H1M STA Administration Sodium Chloride Confirm 06/20/16 14:24 Sodium Chloride 0.9% 1000 Ml Administered 06/20/16 14:25 Dose 1,000 mls @ ud .ROUTE .STK-MED ONE Ondansetron HCl 4 mg 06/20/16 14:18 06/20/16 14:27 Zofran 4 Mg/2 Ml Vial IV 06/20/16 14:19 4 mg STAT ONE Administration Ondansetron HCl Confirm 06/20/16 14:24 Zofran 4 Mg/2 Ml Vial Administered 06/20/16 14:25 Dose 4 mg .ROUTE .STK-MED ONE Lab/Rad Data: Laboratory Result Diagrams 06/20/16 14:18 06/20/16 14:18 Laboratory Results 06/20/16 06/20/16 06/20/16 Range/Units 14:40 14:18 14:18 WBC 9.6 (4.0-10.5) K/mm3 RBC 4.11 (4.1-5.4) M/mm3 Hgb 12.9 (12.0-16.0) gm/dl Hct 38.7 (35-47) % MCV 94.2 (78-100) fl MCH 31.4 (26-32) pg MCHC 33.3 (32-36) g/dl RDW 13.0 (11.5-14.0) % Plt Count 305 (150-450) K/mm3 MPV 9.8 H (6-9.5) fl Sodium 140 (136-145) mEq/L Potassium 3.8 (3.5-5.1) mEq/L Chloride 103 (98-107) mEq/L Carbon Dioxide 25.7 (21-32) mEq/L Anion Gap 15.2 H (5-15) MEQ/L BUN 8 L (9-20) mg/dL Creatinine 0.84 (0.55-1.30) mg/dl Estimated GFR > 60 ML/MIN Glucose 82 (70-110) MG/DL Lactic Acid 0.9 (0.4-2.0) Calcium 9.5 (8.5-10.1) mg/dL Total Bilirubin 0.4 (0.2-1.0) mg/dL AST 29 (15-37) U/L ALT 30 (12-78) U/L Alkaline Phosphatase 77 (46-116) U/L Serum Total Protein 8.0 (6.4-8.2) gm/dL Albumin 4.0 (3.4-5.0) g/dL Lipase 110 (73-393) U/L Ur Collection Type Urine Color (YELLOW) Urine Appearance (CLEAR) Urine pH (5-6) Ur Specific [place] (1.005-1.025) Urine Protein (Negative) Urine Glucose (UA) (NEGATIVE) mg/dL Urine Ketones (NEGATIVE) Urine Nitrite (NEGATIVE) Urine Bilirubin (NEGATIVE) Urine Urobilinogen (0-1) mg/dL Urine WBC (Auto) (NEGATIVE) Urine RBC (Auto) (0-5) [place]/ul Urine Microscopic RBC (0-2) /HPF Urine Microscopic WBC (0-5) /HPF Ur Epithelial Cells (FEW) /HPF Urine Bacteria (NEGATIVE) /HPF Urine Mucus (NEGATIVE) /HPF Urine HCG, Qual (Negative) Specimen Received 06/20/16 06/20/16 Range/Units 13:41 13:41 WBC (4.0-10.5) K/mm3 RBC (4.1-5.4) M/mm3 Hgb (12.0-16.0) gm/dl Hct (35-47) % MCV (78-100) fl MCH (26-32) pg MCHC (32-36) g/dl RDW (11.5-14.0) % Plt Count (150-450) K/mm3 MPV (6-9.5) fl Sodium (136-145) mEq/L Potassium (3.5-5.1) mEq/L Chloride (98-107) mEq/L Carbon Dioxide (21-32) mEq/L Anion Gap (5-15) MEQ/L BUN (9-20) mg/dL Creatinine (0.55-1.30) mg/dl Estimated GFR ML/MIN Glucose (70-110) MG/DL Lactic Acid (0.4-2.0) Calcium (8.5-10.1) mg/dL Total Bilirubin (0.2-1.0) mg/dL AST (15-37) U/L ALT (12-78) U/L Alkaline Phosphatase (46-116) U/L Serum Total Protein (6.4-8.2) gm/dL Albumin (3.4-5.0) g/dL Lipase (73-393) U/L Ur Collection Type CLEAN CATCH Urine Color YELLOW (YELLOW) Urine Appearance CLEAR (CLEAR) Urine pH 8.5 (5-6) Ur Specific [place] 1.020 (1.005-1.025) Urine Protein NEGATIVE (Negative) Urine Glucose (UA) NEGATIVE (NEGATIVE) mg/dL Urine Ketones SMALL-15 (NEGATIVE) Urine Nitrite NEGATIVE (NEGATIVE) Urine Bilirubin NEGATIVE (NEGATIVE) Urine Urobilinogen 0.2 (0-1) mg/dL Urine WBC (Auto) TRACE (NEGATIVE) Urine RBC (Auto) MODERATE (0-5) [place]/ul Urine Microscopic RBC 2-5 (0-2) /HPF Urine Microscopic WBC 2-5 (0-5) /HPF Ur Epithelial Cells FEW (FEW) /HPF Urine Bacteria FEW (NEGATIVE) /HPF Urine Mucus SLIGHT (NEGATIVE) /HPF Urine HCG, Qual NEGATIVE (Negative) Specimen Received [id number] - Progress Progress Note: 06/20/16 15:33 Pt was medicated. IVF bolus given. Tests are reassuring. Advised keep her appt with Dr Gutierrez and Ebenezer and will try tejal ODT. Will release with instructions. 06/20/16 15:[address] Meier covering for Dr Gutierrez. Counseled pt/family regarding: lab results, diagnosis, need for follow-up, rad results - Departure Time of Disposition: 15:45 Departure Disposition: Home Clinical Impression: Abdominal pain, Status post ovarian cystectomy Condition: Stable Critical Care Time: No Referrals: PENNY SOL [Primary Care Provider] - CELESTINO GUTIERREZ MD [NON-STAFF PHY W/O PRIVILEGES] - Instructions: Abdominal Pain-Adult, Ovarian Cyst Removal Additional Instructions: [place] diet. Sip fluids. Take your pain medications as already prescribed. Rx zofran ODT for nausea. Prescriptions: Ondansetron [Zofran Odt] 4 mg PO Q6HPRN PRN #10 tab.rapdis PRN Reason: Nausea/Vomiting
[2016-06-20 14:30] LABS: Mean Cell Volume 94.2 fl (78-100); Mean Corpuscular Hemoglobin 31.4 pg (26-32); Mean Platelet Volume 9.8 fl (6-9.5); Platelet Count 305 K/mm3 (150-450); Red Blood Count 4.11 M/mm3 (4.1-5.4); White Blood Count 9.6 K/mm3 (4.0-10.5)
[2016-06-20 14:40] LABS: ALKALINE PHOSPHATASE 77 U/L (46-116); ANION GAP 15.2 MEQ/L (5-15); BILIRUBIN,TOTAL 0.4 mg/dL (0.2-1.0); BLOOD UREA NITROGEN 8 mg/dL (9-20); CHLORIDE 103 mEq/L (98-107); Carbon Dioxide 25.7 mEq/L (21-32); Glucose 82 MG/DL (70-110); LIPASE 110 U/L (73-393); Potassium 3.8 mEq/L (3.5-5.1); SGOT/AST 29 U/L (15-37); SGPT/ALT 30 U/L (12-78); SODIUM 140 mEq/L (136-145)
--- NOTE | 2016-06-20 15:20 | XRAY ---
Indication: Left-sided abdominal pain. Multiple contiguous axial images obtained through the abdomen and pelvis using 80 cc Isovue 370 contrast. Comparison: June 10, 2016. Lung bases again clear. Heart is not enlarged. There has been interval pelvic surgery as evidenced by abdominal wall post surgical changes including cutaneous kayla. New small pelvic free fluid and free air also presumed postoperative. No walled off fluid collection. Previous large right pelvic cyst not seen. Again previous cholecystectomy. Noncontrasted stomach and bowel loops appear nonobstructed. Appendix now demonstrates dense barium versus appendicolith without features for appendicitis. Remaining liver, pancreas, spleen, adrenal glands, kidneys, ureters, bladder, uterus, and aorta appear normal in CT appearance and attenuation. No pathologic retroperitoneal lymphadenopathy. Impression: 1. Pelvic postsurgical changes including small free fluid and air. No walled off fluid collection or abscess. 2. Appendix demonstrates new appendicolith versus dense barium. No evidence for appendicitis. 3. Remaining CT abdomen/pelvis with contrast exam is negative. CT DI 11.96
[2016-06-20 15:58] VITALS: BP 109/64; PULSE 100
[2016-06-20 16:36] LABS: BAND 1 % (0.0-2.0); Basophil 1 % (0.0-1.0); Eosinophil 2 % (0.00-3.0); Platelet Estimate NORMAL (NORMAL); Total Cells Counted 100
[2016-06-20 16:37] LABS: ANISOCYTOSIS 1+
== END 2016-06-20 15:58 | disposition home or self-care (01) ==
LOC: ED 13:30
DX: R10.9 Unspecified abdominal pain (principal); R11.10 Vomiting, unspecified; Z98.890 Other specified postprocedural states; R11.2 Nausea with vomiting, unspecified; R50.9 Fever, unspecified
CPT/HCPCS: 36000; 36415; 74177; 80053; 81000; 83605; 83690; 84703; 85025; 96360; 96361; 99283; 99284; J1170; J2405

== ENCOUNTER 2016-06-24 14:09 | Observation (INO) | payer MEDICAID, OTHER ==
[2016-06-24] MEDS ORDERED: MORPHINE SULFATE 4 MG INJ IV PRN (14:49)
[2016-06-24] MEDS ORDERED: Lactated Ringers 1,000 ML IV SCH (15:00)
[2016-06-24 15:12] LABS: BASOPHIL % 0.3 % (0.0-0.4); Eosinophil % 0.3 % (0.00-5.0); Granulocytes % 73.6 % (36.0-66.0); Lymphocytes % 20.2 % (24.0-44.0); Mean Cell Volume 92.8 fl (78-100); Mean Corpuscular Hemoglobin 31.6 pg (26-32); Mean Platelet Volume 9.2 fl (6-9.5); Monocytes % 5.6 % (0.0-12.0); Platelet Count 361 K/mm3 (150-450); Red Blood Count 4.15 M/mm3 (4.1-5.4)
[2016-06-24] MEDS: Phenergan 25 MG INJ IV PRN (15:19)
[2016-06-24 15:25] LABS: ALBUMIN 4.4 g/dL (3.4-5.0); ALKALINE PHOSPHATASE 77 U/L (46-116); ANION GAP 16.1 MEQ/L (5-15); BILIRUBIN,TOTAL 0.4 mg/dL (0.2-1.0); BLOOD UREA NITROGEN 12 mg/dL (9-20); CHLORIDE 104 mEq/L (98-107); Carbon Dioxide 23.5 mEq/L (21-32); Glucose 89 MG/DL (70-110); Potassium 3.8 mEq/L (3.5-5.1); SGOT/AST 24 U/L (15-37); SGPT/ALT 36 U/L (12-78); SODIUM 140 mEq/L (136-145); Total Protein 7.9 gm/dL (6.4-8.2)
[2016-06-24] MEDS: Zofran 4 MG/2 ML VIAL IV PRN (16:16)
[2016-06-24] MEDS: Sodium Chloride 0.9% 1000 ML 1,000 ML IV SCH (16:30)
[2016-06-24] MEDS ORDERED: MAALOX ES 30 ML UNIT DOSE PO PRN (17:15)
[2016-06-24 18:05] LABS: COMPLETE URINE MICROSCOPIC? YES; Collection Type CLEAN CATCH; Ph 6.5 (5-6)
[2016-06-24 18:06] LABS: Mucus SLIGHT /HPF (NEGATIVE); WBC 0-2 /HPF (0-5)
[2016-06-24 18:07] LABS: Bacteria FEW /HPF (NEGATIVE); Epithelial Cells FEW /HPF (FEW)
[2016-06-24] MEDS: DILAUDID 2 MG INJECTION IV PRN ×2 (18:19→22:59)
[2016-06-24] MEDS: Pepcid 20 MG VIAL IV SCH (18:21)
[2016-06-24] MEDS: BENADRYL 50 MG/ML IV PRN (19:34)
[2016-06-24] MEDS: Ambien 5 MG Tablet PO SCH (23:00)
[2016-06-24] MEDS: BUSPAR 5 MG PO SCH (23:02)
[2016-06-25] MEDS: Sodium Chloride 0.9% 1000 ML 1,000 ML IV SCH ×3 (01:24→17:19)
[2016-06-25] MEDS: DILAUDID 2 MG INJECTION IV PRN ×5 (06:02→23:50)
[2016-06-25] MEDS: Zofran 4 MG/2 ML VIAL IV PRN ×5 (06:12→23:49)
--- NOTE | 2016-06-25 08:33 | XRAY ---
Indication: Abdominal pain. Status post ovary cyst. Multiple contiguous axial images obtained through the abdomen and pelvis using 80 cc Isovue 370 contrast only. Comparison: June 20, 2016. Lung bases remain clear. Heart is not enlarged. Previous pelvic free air bubbles and free fluid has diminished with tiny residual still present. Again no walled off fluid collection. Stable cutaneous kayla and cholecystectomy clips. Noncontrasted stomach and bowel loops appear nonobstructed. Normal appearing appendix. Remaining liver, pancreas, spleen, adrenal glands, kidneys, ureters, bladder, uterus, and aorta appear normal in CT appearance and attenuation. Impression: Again pelvic post surgical changes with interval diminished free air/fluid. No new or acute intra-abdominal/pelvic abnormalities. CT DI 12.75
--- NOTE | 2016-06-25 09:02 | PCM.NOTE ---
Date and Time: 06/25/16 0857 Subjective Assessment: She is still c/o abd pain. CT abd/pelvis was basically negative, nothing acute. - Review of Systems Constitutional: No Fever Abdominal/Gastrointestinal: Nausea, No Vomiting Objective Exam General Appearance: mild distress Neurologic Exam: alert, oriented x 3, cooperative Skin Exam: normal color, warm, dry Respiratory Exam: normal breath sounds, lungs clear Cardiovascular Exam: regular rate/rhythm, normal heart sounds Gastrointestinal/Abdomen Exam: soft, tenderness (mild diffuse ttp), other ( hypoactive BS. Pfannenstiel incision well approximated, no crepitus/erythema/ induration/exudate. every other staple removed today.), No distention OBJECTIVE DATA Vital Signs: Vital Signs - 24 hr Temp Pulse Resp BP Pulse Ox 06/25/16 07:12 97.9 F 104 H 18 102/60 99 06/25/16 03:59 98.0 F 105 H 18 106/52 98 06/25/16 00:00 97.9 F 104 H 20 111/63 98 06/24/16 20:00 98.0 F 82 21 104/63 99 06/24/16 16:34 98.0 F 98 H 16 102/68 98 Pain Assessment - Last Documented Pain Intensity 5 Pain Scale Used 0-10 Pain Scale Intake and Output: Intake & Output 06/22/16 06/23/16 06/24/16 06/25/16 11:59 11:59 11:59 11:59 Intake Total 2236 Balance 2236 Weight 51.437 kg Lab Results: Lab Results-Last 24 Hours 06/24/16 06/24/16 06/24/16 Range/Units 15:00 15:00 17:51 WBC 10.0 (4.0-10.5) K/mm3 RBC 4.15 (4.1-5.4) M/mm3 Hgb 13.1 (12.0-16.0) gm/dl Hct 38.5 (35-47) % MCV 92.8 (78-100) fl MCH 31.6 (26-32) pg MCHC 34.0 (32-36) g/dl RDW 13.0 (11.5-14.0) % Plt Count 361 (150-450) K/mm3 MPV 9.2 (6-9.5) fl Gran % 73.6 H (36.0-66.0) % Lymphocytes % 20.2 L (24.0-44.0) % Monocytes % 5.6 (0.0-12.0) % Eosinophils % 0.3 (0.00-5.0) % Basophils % 0.3 (0.0-0.4) % Basophils # 0.03 (0-0.4) Sodium 140 (136-145) mEq/L Potassium 3.8 (3.5-5.1) mEq/L Chloride 104 (98-107) mEq/L Carbon Dioxide 23.5 (21-32) mEq/L Anion Gap 16.1 H (5-15) MEQ/L BUN 12 (9-20) mg/dL Creatinine 0.80 (0.55-1.30) mg/dl Estimated GFR > 60 ML/MIN Glucose 89 (70-110) MG/DL Calcium 9.4 (8.5-10.1) mg/dL Total Bilirubin 0.4 (0.2-1.0) mg/dL AST 24 (15-37) U/L ALT 36 (12-78) U/L Alkaline Phosphatase 77 (46-116) U/L Serum Total Protein 7.9 (6.4-8.2) gm/dL Albumin 4.4 (3.4-5.0) g/dL Ur Collection Type CLEAN CATCH Urine Color YELLOW (YELLOW) Urine Appearance CLEAR (CLEAR) Urine pH 6.5 (5-6) Ur Specific [place] 1.025 (1.005-1.025) Urine Protein TRACE (Negative) Urine Glucose (UA) NEGATIVE (NEGATIVE) mg/dL Urine Ketones LARGE-80 (NEGATIVE) Urine Nitrite NEGATIVE (NEGATIVE) Urine Bilirubin NEGATIVE (NEGATIVE) Urine Urobilinogen 0.2 (0-1) mg/dL Urine WBC (Auto) NEGATIVE (NEGATIVE) Urine RBC (Auto) NEGATIVE (0-5) [place]/ul Urine Microscopic WBC 0-2 (0-5) /HPF Ur Epithelial Cells FEW (FEW) /HPF Urine Bacteria FEW (NEGATIVE) /HPF Urine Mucus SLIGHT (NEGATIVE) /HPF Specimen Received [id number] Radiology Exams: Radiology Procedures Category Date Time Status ABDOMEN AND PELVIS W CONTRAST [CT] Urgent Exams 06/24/16 14:47 Completed Assessment/Plan (1) Abdominal pain Current Visit: No Status: Acute Assessment & Plan: Unsure the etiology, but WBC wnl, CT no acute changes. Could be related to Crohn's disease with 2 recent surgeries. CLD if pt wants. Anticipate improvement over the next day or so, if not consider transfer to higher level of care for consultation with GI, vs trying to get pt to improve somewhat so she can d/c home for her GI appointment on . Code(s): R10.9 - UNSPECIFIED ABDOMINAL PAIN (2) Status post cholecystectomy Current Visit: No Status: Acute Assessment & Plan: With Dr. Marvin several weeks ago. Code(s): Z90.49 - ACQUIRED ABSENCE OF OTHER SPECIFIED PARTS OF DIGESTIVE TRACT (3) Status post ovarian cystectomy Current Visit: No Status: Acute Assessment & Plan: [address] Hernandez. Code(s): Z98.890 - OTHER SPECIFIED POSTPROCEDURAL STATES; Z87.42 - PERSONAL HISTORY OF OTH DISEASES OF THE FEMALE GENITAL TRACT (4) Vomiting Current Visit: No Status: Acute Assessment & Plan: None here, pt has had some nausea. Code(s): R11.10 - VOMITING, UNSPECIFIED (5) Crohn disease Current Visit: No Status: Chronic Assessment & Plan: Referred to GI, appointment on . Code(s): K50.90 - CROHN'S DISEASE, UNSPECIFIED, WITHOUT COMPLICATIONS
[2016-06-25] MEDS: Pepcid 20 MG VIAL IV SCH (09:31)
[2016-06-25] MEDS: BUSPAR 5 MG PO SCH ×2 (09:32→22:10)
[2016-06-25] MEDS: Flonase NASAL NS SCH (09:32)
[2016-06-25] MEDS: Phenergan 25 MG INJ IV PRN (09:41)
[2016-06-25] MEDS: BENADRYL 50 MG/ML IV PRN ×3 (09:44→18:51)
[2016-06-25] MEDS: Ambien 5 MG Tablet PO SCH (22:09)
[2016-06-26] MEDS: BENADRYL 50 MG/ML IV PRN ×3 (00:48→11:04)
[2016-06-26] MEDS: Sodium Chloride 0.9% 1000 ML 1,000 ML IV SCH ×2 (00:56→08:58)
[2016-06-26] MEDS: DILAUDID 2 MG INJECTION IV PRN ×3 (04:32→13:12)
[2016-06-26] MEDS: Zofran 4 MG/2 ML VIAL IV PRN ×2 (04:32→13:11)
[2016-06-26] MEDS: Phenergan 25 MG INJ IV PRN (07:59)
[2016-06-26] MEDS: BUSPAR 5 MG PO SCH (08:57)
[2016-06-26] MEDS: Pepcid 20 MG VIAL IV SCH (08:57)
[2016-06-26] MEDS: Flonase NASAL NS SCH (08:58)
[2016-06-26 10:36] LABS: ALBUMIN 3.7 g/dL (3.4-5.0); ALKALINE PHOSPHATASE 69 U/L (46-116); ANION GAP 16.1 MEQ/L (5-15); BILIRUBIN,TOTAL 0.4 mg/dL (0.2-1.0); BLOOD UREA NITROGEN 6 mg/dL (9-20); CHLORIDE 104 mEq/L (98-107); Carbon Dioxide 24.4 mEq/L (21-32); Glucose 55 MG/DL (70-110); Potassium 3.6 mEq/L (3.5-5.1); SGOT/AST 24 U/L (15-37); SGPT/ALT 23 U/L (12-78); SODIUM 141 mEq/L (136-145); Total Protein 7.1 gm/dL (6.4-8.2)
[2016-06-26 10:54] LABS: BASOPHIL % 0.5 % (0.0-0.4); Eosinophil % 2.5 % (0.00-5.0); Granulocytes % 51.1 % (36.0-66.0); Mean Cell Volume 94.2 fl (78-100); Mean Platelet Volume 9.9 fl (6-9.5); Monocytes % 5.9 % (0.0-12.0); Platelet Count 309 K/mm3 (150-450); Red Blood Count 3.81 M/mm3 (4.1-5.4); Red Cell Distribution Width 12.9 % (11.5-14.0); White Blood Count 6.3 K/mm3 (4.0-10.5)
[2016-06-26 10:56] LABS: Mean Corpuscular Hemoglobin 31.4 pg (26-32)
[2016-06-26 11:39] VITALS: BP 112/65; PULSE 95; O2SAT 97
--- NOTE | 2016-06-27 09:46 | DS ---
ADMISSION DIAGNOSES: 1) Abdominal pain. 2) Nausea and vomiting. 3) Crohn's disease. DISCHARGE DIAGNOSES: 1) ABDOMINAL PAIN. 2) NAUSEA AND VOMITING. HOSPITAL COURSE: This is a 20 year-old female patient of mine for the past several months from [facility] who was admitted with abdominal pain. Ten days prior to admission she had an ovarian cyst removed that was about 8 cm in size. She states she felt better for a few days and then she started having more abdominal pain. On admission there was concern for infection and a CT scan was done with no acute findings. Her white blood cell count was normal. She was put on NPO status for the first day and then clear liquid diet with IV fluids and IV pain medicine. She did not improve over the next few days and in fact last night vomited her clear liquids. She came to me stating that she had a diagnosis of Crohn's disease. The only colonoscopy and pathology report I see reports gastritis and a colon biopsy with some increased lymphocytosis. She has not been on any medicine specifically for Crohn's disease and in fact she was supposed to see a GI specialist yesterday but missed that appointment due to being in the hospital. DISCHARGE PHYSICAL: Afebrile. Vital signs stable. GENERAL: She is in mild distress. CV: Regular rate and rhythm, no murmurs. CHEST: Clear to auscultation bilaterally. NECK: Supple. ABDOMEN: Soft. She is tender throughout worse in suprapubic-epigastric regions. No guarding or rebound. EXTREMITIES: She has no swelling in the extremities. ASSESSMENT AND PLAN: 1) ABDOMINAL PAIN: I am not sure the etiology of her abdominal pain. I think at this point she should be evaluated by a GI specialist and so I recommended transferring to [facility]. 2) NAUSEA AND VOMITING PERSISTENT. 3) QUESTION OF CROHN'S DISEASE. She will need to be evaluated by GI specialist to see if this is true diagnosis that she has or if she needs another work up for diagnosis. DISPOSITION: Transfer to [facility]. DISCHARGE CONDITION: Stable.
== END 2016-06-26 13:55 | disposition home or self-care (01) ==
LOC: MED SURG 14:23
PROVIDERS: ADMIT Family Medicine; ATTEND Family Medicine
DX: R10.9 Unspecified abdominal pain (principal); R11.2 Nausea with vomiting, unspecified; Z90.49 Acquired absence of other specified parts of digestive tract; Z98.890 Other specified postprocedural states; K50.90 Crohn's disease, unspecified, without complications; K21.9 Gastro-esophageal reflux disease without esophagitis
CPT/HCPCS: 36415; 74177; 80053; 81000; 85025; 87086; 93268; G0378; J1170; J1200; J2270; J2405; J2550

== ENCOUNTER 2016-07-02 18:18 | Inpatient (IN) | payer OTHER ==
[2016-07-02] MEDS ORDERED: Sodium Chloride 0.9% 1000 ML 1,000 ML IV STA (18:41)
[2016-07-02] MEDS ORDERED: Vistaril 50 MG/ML IM ONE ×2 (18:42→18:53)
[2016-07-02] MEDS ORDERED: Sodium Chloride 0.9% 1000 ML 1,000 ML ONE (18:54)
[2016-07-02 19:13] LABS: COMPLETE URINE MICROSCOPIC? YES; Collection Type CCMS
[2016-07-02 19:14] LABS: Bacteria FEW /HPF (NEGATIVE); Epithelial Cells FEW /HPF (FEW); Mucus SLIGHT /HPF (NEGATIVE)
--- NOTE | 2016-07-02 19:26 | ERPHSYRPT ---
- History of Present Illness Time Seen by Provider: 07/02/16 19:02 Source: patient Exam Limitations: no limitations Patient Subjective Stated Complaint: pt states she was released from [facility] on 07/01/16 for treatment of abdminal pain. pt states her Family advised her to come to ER this evening because she thinks she maybe withdrawing from dilaudid she was recieving in the hospital. pt c/o shakiness and nausea. Triage Nursing Assessment: pt pale, cool clammy to touch. pt alert oriented x3. pt afebrile. Physician History: TODAY PT C/O SHAKINESS, NAUSEA, HEADACHE AND FEELING HOT AND COLD. FOR THE PAST 2 WEEKS PT HAS HAD DYSURIA. FOR THE PAST MONTH PT HAS HAD SHARP INTERMITTENT LOWER MID ANTERIOR CHEST PAIN LASTING UP TO 10 MINUTES PER EPISODE. ABOUT 4 WEEKS AGO AT [facility] LOVE REMOVED HER GALLBLADDER. ABOUT 2 WEEKS AGO PT HAS HAD A RIGHT OVARIAN CYST REMOVED AT [facility]. AFTER THIS PT WAS HOSPITALIZED AT [facility] FOR 3 DAYS AND THEN TRANSFERRED TO [facility] FOR 7 DAYS WHERE PT STATES A WREATH AND [employer] MAKER EVALUATED HER AND FAILED TO COME UP WITH ANY NEW DIAGNOSIS. SHE STATES SHE WAS GIVEN DILAUDID EVERY 2 HOURS WITH DISCHARGE YESTERDAY; LAST DOSE OF DILAUDID WAS 10AM YESTERDAY. PT STATES SHE HAS HAD CHRONIC ABDOMINAL PAIN FOR THE PAST 6 YEARS AND HAS BEEN DIAGNOSED WITH IBD. Allergies/Adverse Reactions: adhesive tape Allergy (Intermediate, Verified 07/02/16 18:40) Blisters paroxetine HCl [From Paxil] Adverse Reaction (Verified 07/02/16 18:40) Nausea Home Medications: Buspirone HCl 5 mg [Buspar 5 mg] 5 mg PO BID 04/16/16 [History] Fluticasone Propionate [Flonase NASAL] 16 gm NS DAILY 05/29/16 [History] Acetaminophen [Tylenol Extra Strength] 500 mg PO Q6HPRN PRN 06/24/16 [History] Magnesium Oxide 400 mg [Mag-Ox 400] 400 mg PO HS PRN 06/24/16 [History] Melatonin 1 mg PO HS 06/24/16 [History] Dicyclomine HCl 20 mg [Bentyl 20 mg] 20 mg PO Q6HPRN PRN 07/02/16 [History ] Hx Tetanus, Diphtheria Vaccination/Date Given: Yes ([place]) Hx Influenza Vaccination/Date Given: Yes Hx Pneumococcal Vaccination/Date Given: Yes Immunizations Up to Date: Yes - Review of Systems Constitutional: No Fever Ears, Nose, & Throat: No Throat Pain Cardiac: Chest Pain Abdominal/Gastrointestinal: Abdominal Pain, Nausea Genitourinary Symptoms: Dysuria Neurological: Headache, Other (SHAKINESS) Endocrine: Other (FEELING HOT/COLD) All Other Systems: Reviewed and Negative - Past Medical History Pertinent Past Medical History: Yes Neurological History: Migraines ENT History: No Pertinent History Cardiac History: No Pertinent History Respiratory History: Asthma Endocrine Medical History: No Pertinent History Musculoskeletal History: No Pertinent History GI Medical History: Crohns Disease, GERD, Gallbladder Disease, Irritable Bowel History: No Pertinent History, Other Psycho-Social History: Depression Female Reproductive Disorders: Other Other Medical History: Reports Crohns; cysts on ovaries - Past Surgical History Past Surgical History: Yes Neuro Surgical History: No Pertinent History Cardiac: No Pertinent History Respiratory: No Pertinent History Gastrointestinal: No Pertinent History, Cholecystectomy Genitourinary: No Pertinent History, Other Musculoskeletal: Orthopedic Surgery Female Surgical History: No Pertinent History Other Surgical History: right rotator cuff repair. Ear tubes bilat,ovarian cyst 2017. ovarian cyst removal jun 2016. colonscopy jun 2016 - Social History Smoking Status: Former smoker Exposure to second hand smoke: Yes Drug Use: none Patient Lives Alone: No Significant Family History: no pertinent family hx - Female History Hx Last Menstrual Period: may 2016 Hx Now: (UNKNOWN) - Nursing Vital Signs Nursing Vital Signs: Initial Vital Signs Pulse Rate 88 Respiratory Rate 18 Blood Pressure [] 133/77 Pain Intensity 1 - Physical Exam General Appearance: alert Eye Exam: PERRL/EOMI Ears, Nose, Throat Exam: TMs normal, pharynx normal, moist mucous membranes Neck Exam: normal inspection Respiratory Exam: lungs clear Cardiovascular Exam: normal heart sounds Gastrointestinal/Abdomen Exam: soft, tenderness (MILD SUPRAPUBIC TENDERNESS), other (BOWEL SOUNDS MODERATELY HYPERACTIVE BUT NORMOTONIC; HORIZONTAL SUPRAPUBIC INCISION STILL HAS BOYD AND IS HEALING WELL WITHOUT EXUDATE.), No guarding Back Exam: normal range of motion Extremity Exam: normal inspection, No pedal edema Neurologic Exam: alert, cooperative Skin Exam: warm, dry SpO2 Interpretation: normal SpO2: 98 Oxygen Delivery: Room Air - Course Nursing assessment & vital signs reviewed: Yes EKG Interpreted by Me: RATE ([id number]), Sinus Tach, NORMAL AXIS, NORMAL INTERVALS - Radiology Exams Chest X-ray Interpretation: Interpreted by me, No Pneumonia Ordered Tests: Active Orders 24 hr Category Date Time Status Clean Catch Urine Specimen STAT Care 07/02/16 18:41 Active EKG-ER Only STAT Care 07/02/16 19:31 Active IV Insertion STAT Care 07/02/16 18:41 Active CHEST 1 VIEW (PORTABLE) Stat Exams 07/02/16 19:32 Ordered AMYLASE Stat Lab 07/02/16 18:52 Completed CBC W DIFF Stat Lab 07/02/16 18:52 Completed CMP Stat Lab 07/02/16 18:52 Completed CULTURE,URINE Stat Lab 07/02/16 19:31 Ordered HCG QUALITATIVE,SERUM Stat Lab 07/02/16 18:52 Completed LIPASE Stat Lab 07/02/16 18:52 Completed TROPONIN Stat Lab 07/02/16 18:52 Completed UA W/ MICROSCOPIC Stat Lab 07/02/16 18:52 Completed Urine Triage Profile Stat Lab 07/02/16 18:52 Completed Medication Summary Discontinued Medications Generic Name Dose Route Start Last Admin Trade Name Freq PRN Reason Stop Dose Admin Hydroxyzine HCl 50 mg 07/02/16 18:42 07/02/16 18:56 Vistaril 50 Mg/Ml IM 07/02/16 18:43 50 mg STAT ONE Administration Hydroxyzine HCl Confirm 07/02/16 18:53 Vistaril 50 Mg/Ml Administered 07/02/16 18:54 Dose 50 mg IM .STK-MED ONE Sodium Chloride 1,000 mls @ 999 mls/hr 07/02/16 18:41 07/02/16 18:56 Sodium Chloride 0.9% 1000 Ml IV 07/02/16 19:41 999 mls/hr .Q1H1M STA Administration Sodium Chloride Confirm 07/02/16 18:54 Sodium Chloride 0.9% 1000 Ml Administered 07/02/16 18:55 Dose 1,000 mls @ ud .ROUTE .STK-MED ONE Lab/Rad Data: Laboratory Result Diagrams 07/02/16 18:52 07/02/16 18:52 Laboratory Results 07/02/16 07/02/16 07/02/16 Range/Units 18:52 18:52 18:52 WBC (4.0-10.5) K/mm3 RBC (4.1-5.4) M/mm3 Hgb (12.0-16.0) gm/dl Hct (35-47) % MCV (78-100) fl MCH (26-32) pg MCHC (32-36) g/dl RDW (11.5-14.0) % Plt Count (150-450) K/mm3 MPV (6-9.5) fl Gran % (36.0-66.0) % Lymphocytes % (24.0-44.0) % Monocytes % (0.0-12.0) % Eosinophils % (0.00-5.0) % Basophils % (0.0-0.4) % Basophils # (0-0.4) Sodium 142 (136-145) mEq/L Potassium 3.8 (3.5-5.1) mEq/L Chloride 103 (98-107) mEq/L Carbon Dioxide 25.6 (21-32) mEq/L Anion Gap 17.2 H (5-15) MEQ/L BUN 6 L (9-20) mg/dL Creatinine 0.90 (0.55-1.30) mg/dl Estimated GFR > 60 ML/MIN Glucose 97 (70-110) MG/DL Calcium 10.0 (8.5-10.1) mg/dL Total Bilirubin 0.3 (0.2-1.0) mg/dL AST 21 (15-37) U/L ALT 14 (12-78) U/L Alkaline Phosphatase 81 (46-116) U/L Troponin I < 0.017 (0.000-0.056) ng/ml Serum Total Protein 8.4 H (6.4-8.2) gm/dL Albumin 4.4 (3.4-5.0) g/dL Amylase 88 (25-115) U/L Lipase 180 (73-393) U/L Serum , Qual NEGATIVE (Negative) Ur Collection Type Urine Color (YELLOW) Urine Appearance (CLEAR) Urine pH (5-6) Ur Specific [place] (1.005-1.025) Urine Protein (Negative) Urine Glucose (UA) (NEGATIVE) mg/dL Urine Ketones (NEGATIVE) Urine Nitrite (NEGATIVE) Urine Bilirubin (NEGATIVE) Urine Urobilinogen (0-1) mg/dL Urine WBC (Auto) (NEGATIVE) Urine RBC (Auto) (0-5) [place]/ul Urine Microscopic RBC (0-2) /HPF Urine Microscopic WBC (0-5) /HPF Ur Epithelial Cells (FEW) /HPF Urine Bacteria (NEGATIVE) /HPF Urine Mucus (NEGATIVE) /HPF Urine Opiates Level (NEGATIVE) Ur Methadone (NEGATIVE) Urine Barbiturates (NEGATIVE) Ur Phencyclidine (PCP) (NEGATIVE) Urine Amphetamine (NEGATIVE) U Benzodiazepine Level (NEGATIVE) Urine Cocaine (NEGATIVE) Urine Marijuana (THC) (NEGATIVE) Specimen Received 07/02/16 07/02/16 07/02/16 Range/Units 18:52 18:52 18:52 WBC 7.9 (4.0-10.5) K/mm3 RBC 4.33 (4.1-5.4) M/mm3 Hgb 13.6 (12.0-16.0) gm/dl Hct 40.3 (35-47) % MCV 93.1 (78-100) fl MCH 31.4 (26-32) pg MCHC 33.7 (32-36) g/dl RDW 13.2 (11.5-14.0) % Plt Count 326 (150-450) K/mm3 MPV 10.3 H (6-9.5) fl Gran % 64.1 (36.0-66.0) % Lymphocytes % 27.4 (24.0-44.0) % Monocytes % 6.3 (0.0-12.0) % Eosinophils % 1.8 (0.00-5.0) % Basophils % 0.4 (0.0-0.4) % Basophils # 0.03 (0-0.4) Sodium (136-145) mEq/L Potassium (3.5-5.1) mEq/L Chloride (98-107) mEq/L Carbon Dioxide (21-32) mEq/L Anion Gap (5-15) MEQ/L BUN (9-20) mg/dL Creatinine (0.55-1.30) mg/dl Estimated GFR ML/MIN Glucose (70-110) MG/DL Calcium (8.5-10.1) mg/dL Total Bilirubin (0.2-1.0) mg/dL AST (15-37) U/L ALT (12-78) U/L Alkaline Phosphatase (46-116) U/L Troponin I (0.000-0.056) ng/ml Serum Total Protein (6.4-8.2) gm/dL Albumin (3.4-5.0) g/dL Amylase (25-115) U/L Lipase (73-393) U/L Serum , Qual (Negative) Ur Collection Type CCMS Urine Color YELLOW (YELLOW) Urine Appearance CLEAR (CLEAR) Urine pH 7.0 (5-6) Ur Specific [place] 1.020 (1.005-1.025) Urine Protein NEGATIVE (Negative) Urine Glucose (UA) NEGATIVE (NEGATIVE) mg/dL Urine Ketones MODERATE-40 (NEGATIVE) Urine Nitrite NEGATIVE (NEGATIVE) Urine Bilirubin NEGATIVE (NEGATIVE) Urine Urobilinogen 0.2 (0-1) mg/dL Urine WBC (Auto) NEGATIVE (NEGATIVE) Urine RBC (Auto) TRACE-INTACT (0-5) [place]/ul Urine Microscopic RBC 0-2 (0-2) /HPF Urine Microscopic WBC 2-5 (0-5) /HPF Ur Epithelial Cells FEW (FEW) /HPF Urine Bacteria FEW (NEGATIVE) /HPF Urine Mucus SLIGHT (NEGATIVE) /HPF Urine Opiates Level NEG. (NEGATIVE) Ur Methadone NEG. (NEGATIVE) Urine Barbiturates NEG. (NEGATIVE) Ur Phencyclidine (PCP) NEG. (NEGATIVE) Urine Amphetamine NEG. (NEGATIVE) U Benzodiazepine Level NEG. (NEGATIVE) Urine Cocaine NEG. (NEGATIVE) Urine Marijuana (THC) NEG. (NEGATIVE) Specimen Received 07-02-160 - Departure Time of Disposition: 20:30 Departure Disposition: Observation Clinical Impression: CHRONIC ABDOMINAL PAIN, DILAUDD WITHDRAWL, MIGRAINES, ASTHMA, GERD, IBD, DEPRESSION, CHEST PAIN Condition: Fair Critical Care Time: No
[2016-07-02 19:37] LABS: ALBUMIN 4.4 g/dL (3.4-5.0); ALKALINE PHOSPHATASE 81 U/L (46-116); ANION GAP 17.2 MEQ/L (5-15); BILIRUBIN,TOTAL 0.3 mg/dL (0.2-1.0); BLOOD UREA NITROGEN 6 mg/dL (9-20); CHLORIDE 103 mEq/L (98-107); Carbon Dioxide 25.6 mEq/L (21-32); Glucose 97 MG/DL (70-110); LIPASE 180 U/L (73-393); Potassium 3.8 mEq/L (3.5-5.1); SGOT/AST 21 U/L (15-37); SGPT/ALT 14 U/L (12-78); SODIUM 142 mEq/L (136-145); Total Protein 8.4 gm/dL (6.4-8.2)
[2016-07-02 19:42] LABS: BASOPHIL % 0.4 % (0.0-0.4); Eosinophil % 1.8 % (0.00-5.0); Granulocytes % 64.1 % (36.0-66.0); Lymphocytes % 27.4 % (24.0-44.0); Mean Cell Volume 93.1 fl (78-100); Mean Corpuscular Hemoglobin 31.4 pg (26-32); Mean Platelet Volume 10.3 fl (6-9.5); Monocytes % 6.3 % (0.0-12.0); Platelet Count 326 K/mm3 (150-450); Red Blood Count 4.33 M/mm3 (4.1-5.4); Red Cell Distribution Width 13.2 % (11.5-14.0); White Blood Count 7.9 K/mm3 (4.0-10.5)
[2016-07-02 20:06] LABS: TROPONIN < 0.017 ng/ml (0.000-0.056)
[2016-07-02] MEDS: Sodium Chloride 0.9% 1000 ML 1,000 ML IV SCH (21:16)
[2016-07-02] MEDS: DILAUDID 2 MG INJECTION IV PRN (21:41)
[2016-07-02] MEDS: BENADRYL 25 MG CAPSULE PO PRN (23:12)
[2016-07-02] MEDS: Phenergan 25 MG INJ IV PRN (23:13)
[2016-07-02] MEDS: Ambien 5 MG Tablet PO PRN (23:13)
[2016-07-02] MEDS: BUSPAR 5 MG PO SCH (23:13)
[2016-07-03] MEDS: DILAUDID 2 MG INJECTION IV PRN ×4 (01:53→14:36)
[2016-07-03] MEDS: Phenergan 25 MG INJ IV PRN ×5 (02:49→18:44)
[2016-07-03 05:58] LABS: BASOPHIL % 0.6 % (0.0-0.4); Eosinophil % 3.3 % (0.00-5.0); Granulocytes % 48.6 % (36.0-66.0); Lymphocytes % 39.3 % (24.0-44.0); Mean Cell Volume 94.1 fl (78-100); Mean Platelet Volume 9.9 fl (6-9.5); Monocytes % 8.2 % (0.0-12.0); Platelet Count 235 K/mm3 (150-450); Red Blood Count 3.24 M/mm3 (4.1-5.4); White Blood Count 6.7 K/mm3 (4.0-10.5)
[2016-07-03 05:59] LABS: ALBUMIN 3.1 g/dL (3.4-5.0); ALKALINE PHOSPHATASE 57 U/L (46-116); ANION GAP 15.6 MEQ/L (5-15); BILIRUBIN,TOTAL 0.3 mg/dL (0.2-1.0); BLOOD UREA NITROGEN 5 mg/dL (9-20); CHLORIDE 109 mEq/L (98-107); Carbon Dioxide 23.1 mEq/L (21-32); Glucose 71 MG/DL (70-110); Mean Corpuscular Hemoglobin 31.4 pg (26-32); Potassium 3.2 mEq/L (3.5-5.1); SGOT/AST 14 U/L (15-37); SGPT/ALT 9 U/L (12-78); SODIUM 145 mEq/L (136-145); Total Protein 5.9 gm/dL (6.4-8.2)
[2016-07-03] MEDS: BENADRYL 25 MG CAPSULE PO PRN ×3 (06:16→18:44)
[2016-07-03] MEDS: Sodium Chloride 0.9% 1000 ML 1,000 ML IV SCH ×2 (06:59→18:41)
--- NOTE | 2016-07-03 09:14 | XRAY ---
Indication: Chest pain. Comparison: June 10, 2016. Single AP chest again demonstrates normal heart, lungs, and bony thorax.
[2016-07-03] MEDS: PROTONIX 40 MG IV IV SCH (10:13)
[2016-07-03] MEDS: OXYCODONE-ACETAMINOPHEN 10-325 PO SCH ×3 (10:20→20:55)
--- NOTE | 2016-07-03 10:24 | PCM.HP ---
History of Present Illness - Chief Complaint Chief Complaint: dilaudid withdrawl, chest pain, suicidal ideation History of Present Illness: is a 20 year old female pt with chronic abdominal pain who was admitted to [facility] last night in withdrawal from opiates. She had a gallbladder surgery quite recently with Dr. Borrero, then about 2 weeks ago had an ovarian cyst removed, open laparotomy, with Dr. Fall. She came to me about 7d postop with abd pain and report of subjective fever, not tolerating po and was admitted to [facility]. After several days of bowel rest with IV fluids she was not improving so was transferred to [facility] for further workup. She apparently underwent EGD and colonoscopy; we do not have those reports available as yet. She was discharged home 2 days ago on bentyl po. She states she didn't feel well as soon as she was discharged. Still c/o abdominal pain and was unable to tolerate much po. She c/o chills and increasing nausea so came to the ER. Apparently she has been on dilaudid about every 2 hours, per her report, the entire hospital stay. Currently her abdominal pain is lower abdomen, LLQ, and LUQ. Constant, waxes and wanes. with sharp overtones. - Review of Systems Constitutional: Fever (subjective), Fatigue Ears, Nose, & Throat: Mouth Pain (has sore R side of mouth, worsening. no hx herpes) Respiratory: Cough (x 5d or so, nonproductive), Short Of Breath (intermittently) Cardiac: Chest Pain (on admission and intermittently) Abdominal/Gastrointestinal: Abdominal Pain, Nausea, No Diarrhea Skin: Skin Lesions (mouth) Psychological: Depression, Suicidal Ideations (since yesterday, has no specific plan, hasn't acted because nothing available to her in the hospital) Medications & Allergies Home Medications: Home Medication List Buspirone HCl 5 mg [Buspar 5 mg] 5 mg PO BID 04/16/16 [History Confirmed 07/02/16] Fluticasone Propionate [Flonase NASAL] 16 gm NS DAILY 05/29/16 [History Confirmed 07/02/16] Ondansetron [Zofran Odt] 4 mg PO Q6HPRN PRN #10 tab.rapdis 06/20/16 [Rx Confirmed 07/02/16] Acetaminophen [Tylenol Extra Strength] 500 mg PO Q6HPRN PRN 06/24/16 [History Confirmed 07/02/16] Melatonin 1 mg PO HS 06/24/16 [History Confirmed 07/02/16] Dicyclomine HCl 20 mg [Bentyl 20 mg] 20 mg PO Q6HPRN PRN 07/02/16 [ History Confirmed 07/02/16] Ranitidine HCl [Zantac] 150 mg PO DAILY PRN PRN 07/02/16 [History Confirmed ] Allergies/Adverse Reactions: Allergies Allergy/AdvReac Type Severity Reaction Status Date / Time adhesive tape Allergy Intermediate Blisters Verified 07/02/16 18:40 [place] Allergy Verified 07/02/16 21:25 paroxetine HCl [From Paxil] AdvReac Nausea Verified 07/02/16 18:40 - Past Medical History Past Medical History: Yes Neurological History: Migraines ENT History: No Pertinent History Cardiac History: No Pertinent History Respiratory History: Asthma Endocrine Medical History: No Pertinent History Musculoskelatal History: No Pertinent History GI Medical History: Crohns Disease, GERD, Gallbladder Disease, Irritable Bowel History: No Pertinent History, Other Pyscho-Social History: Depression Reproductive Disorders: Other Comment: Reports Crohns; cysts on ovaries - Female History Hx Last Menstrual Period: may 2016 Are you now?: No - Past Surgical History Past Surgical History: Yes Neuro Surgical History: No Pertinent History Cardiac History: No Pertinent History Respiratory Surgery: No Pertinent History GI Surgical History: Cholecystectomy Genitourinary Surgical Hx: Other Musculskeletal Surgical Hx: Orthopedic Surgery Female Surgical History: No Pertinent History Other Surgical History: right rotator cuff repair. Ear tubes bilat,ovarian cyst 2016. ovarian cyst removal jun 2016. colonscopy jun 2016 - Social History Smoking Status: Former smoker Exposure to second hand smoke: Yes Alcohol: None Drug Use: none Significant Family History: no pertinent family hx - Physical Exam Vital Signs: Vital Signs - 24 hr Temp Pulse Resp BP Pulse Ox 07/03/16 07:38 98.1 F 86 17 90/45 97 07/03/16 04:00 97.6 F 128 H 16 116/56 92 L 07/03/16 00:26 97.8 F 82 16 102/61 98 07/02/16 21:12 98 07/02/16 20:30 98 07/02/16 20:25 87 16 111/54 96 07/02/16 19:35 88 18 133/77 99 07/02/16 18:43 65 18 101/68 98 General Appearance: mild distress, other (appears chronically ill) Neurologic Exam: alert, oriented x 3, cooperative Eye Exam: eyes nml inspection Ears, Nose, Throat Exam: moist mucous membranes, other (unable to open mouth fully due to sore on R side of mouth; there is some mild yellow crusting on an erythematous base approx 3 mm at R side of mouth) Neck Exam: normal inspection, non-tender, No lymphadenopathy Respiratory Exam: normal breath sounds, lungs clear, No crackles/rales, No rhonchi, No wheezing Cardiovascular Exam: regular rate/rhythm, normal heart sounds, No murmur Gastrointestinal/Abdomen Exam: soft, normal bowel sounds, tenderness (suprapubic , LLQ, LUQ), guarding, No rebound Back Exam: normal inspection, CVA tenderness (bilat, R>L) Extremity Exam: No pedal edema, No swelling Skin Exam: normal color, warm, dry Results - Labs Lab/Micro Results: Lab Results-Last 24 Hours 07/03/16 07/03/16 07/03/16 Range/Units 01:09 05:25 05:25 WBC 6.7 (4.0-10.5) K/mm3 RBC 3.24 L (4.1-5.4) M/mm3 Hgb 10.2 L (12.0-16.0) gm/dl Hct 30.5 L (35-47) % MCV 94.1 (78-100) fl MCH 31.4 (26-32) pg MCHC 33.4 (32-36) g/dl RDW 13.0 (11.5-14.0) % Plt Count 235 (150-450) K/mm3 MPV 9.9 H (6-9.5) fl Gran % 48.6 (36.0-66.0) % Lymphocytes % 39.3 (24.0-44.0) % Monocytes % 8.2 (0.0-12.0) % Eosinophils % 3.3 (0.00-5.0) % Basophils % 0.6 (0.0-0.4) % Basophils # 0.04 (0-0.4) Sodium 145 (136-145) mEq/L Potassium 3.2 L (3.5-5.1) mEq/L Chloride 109 H (98-107) mEq/L Carbon Dioxide 23.1 (21-32) mEq/L Anion Gap 15.6 H (5-15) MEQ/L BUN 5 L (9-20) mg/dL Creatinine 0.73 (0.55-1.30) mg/dl Estimated GFR > 60 ML/MIN Glucose 71 (70-110) MG/DL Calcium 8.3 L (8.5-10.1) mg/dL Total Bilirubin 0.3 (0.2-1.0) mg/dL AST 14 L (15-37) U/L ALT 9 L (12-78) U/L Alkaline Phosphatase 57 (46-116) U/L Troponin I < 0.017 (0.000-0.056) ng/ml Serum Total Protein 5.9 L (6.4-8.2) gm/dL Albumin 3.1 L (3.4-5.0) g/dL Assessment/Plan (1) Withdrawal from opioids Current Visit: Yes Status: Acute Assessment & Plan: Will start pt on percocet instead of dilaudid when she is able to tolerate po. Code(s): F11.23 - OPIOID DEPENDENCE WITH WITHDRAWAL (2) Suicidal ideation Current Visit: Yes Status: Acute Assessment & Plan: She is being moved to a room in front of the nurses desk. Telemental consult. I actually have some concerns about a psychiatric component to her abdominal pain; see below. Code(s): R45.851 - SUICIDAL IDEATIONS (3) Abdominal pain Current Visit: Yes Status: Acute Qualifiers: Abdominal location: generalized Qualified Code(s): R10.84 - Generalized abdominal pain Assessment & Plan: She has had a cholecystectomy, ovarian cyst removed, EGD, and colonoscopy recently. Certainly she may have occult irritable bowel disease, but would like to make sure there is no psychiatric component to her abdominal pain. Code(s): R10.9 - UNSPECIFIED ABDOMINAL PAIN (4) Skin lesion Current Visit: Yes Status: Acute Assessment & Plan: Treat for HSV I although she has no known history. Code(s): L98.9 - DISORDER OF THE SKIN AND SUBCUTANEOUS TISSUE, UNSPECIFIED (5) Nausea Current Visit: Yes Status: Acute Assessment & Plan: may need anti-emetics prior to each meal. She states this was her regimen at [facility]. Code(s): R11.0 - NAUSEA
[2016-07-03] MEDS ORDERED: TYLENOL EXTRA STRENGTH 500 MG PO PRN (10:41)
[2016-07-03] MEDS ORDERED: BENTYL 20 MG PO PRN (10:41)
[2016-07-03] MEDS ORDERED: NON-FORMULARY ITEM (Ranitidine Hcl [Zantac] 150 MG) PO PRN (10:41)
[2016-07-03] MEDS ORDERED: Pepcid 20 MG PO SCH (11:00)
[2016-07-03] MEDS: Flonase NASAL NS SCH (12:18)
[2016-07-03] MEDS: ZOVIRAX 200 MG PO SCH ×2 (12:18→21:40)
[2016-07-03] MEDS ORDERED: ZOVIRAX TP SCH (15:00)
[2016-07-03] MEDS: Ambien 5 MG Tablet PO PRN (21:40)
[2016-07-03] MEDS: BUSPAR 5 MG PO SCH (21:40)
[2016-07-04] MEDS: OXYCODONE-ACETAMINOPHEN 10-325 PO SCH ×2 (00:38→04:43)
[2016-07-04] MEDS: BENADRYL 25 MG CAPSULE PO PRN (04:03)
[2016-07-04 05:54] LABS: ALBUMIN 3.3 g/dL (3.4-5.0); ALKALINE PHOSPHATASE 74 U/L (46-116); ANION GAP 15.5 MEQ/L (5-15); BLOOD UREA NITROGEN 5 mg/dL (9-20); CHLORIDE 109 mEq/L (98-107); Carbon Dioxide 22.9 mEq/L (21-32); Glucose 141 MG/DL (70-110); Potassium 3.5 mEq/L (3.5-5.1); SGOT/AST 18 U/L (15-37); SGPT/ALT 10 U/L (12-78); SODIUM 144 mEq/L (136-145)
[2016-07-04 06:11] LABS: BILIRUBIN,TOTAL < 0.1 mg/dL (0.2-1.0)
[2016-07-04 06:23] LABS: BASOPHIL % 0.7 % (0.0-0.4); Eosinophil % 4.6 % (0.00-5.0); Granulocytes % 39.7 % (36.0-66.0); Lymphocytes % 45.5 % (24.0-44.0); Mean Cell Volume 93.8 fl (78-100); Mean Corpuscular Hemoglobin 31.7 pg (26-32); Mean Platelet Volume 9.2 fl (6-9.5); Monocytes % 9.5 % (0.0-12.0); Platelet Count 257 K/mm3 (150-450); Red Blood Count 3.53 M/mm3 (4.1-5.4); Red Cell Distribution Width 13.2 % (11.5-14.0); White Blood Count 5.9 K/mm3 (4.0-10.5)
[2016-07-04] MEDS ORDERED: PERCOCET TABLET 5/325MG PO PRN (08:06)
--- NOTE | 2016-07-04 08:45 | PCM.NOTE ---
Date and Time: 07/04/16 0842 Subjective Assessment: Pt is actually feeling better today. She denies any suicidal ideation currently. - Review of Systems Constitutional: No Fever Objective Exam General Appearance: no apparent distress Neurologic Exam: alert, oriented x 3, cooperative Skin Exam: normal color, warm, dry Respiratory Exam: normal breath sounds, lungs clear, No crackles/rales, No rhonchi, No wheezing Cardiovascular Exam: regular rate/rhythm, normal heart sounds, No murmur Gastrointestinal/Abdomen Exam: soft, normal bowel sounds, tenderness (mild, suprapubic, LLQ), No guarding, No rebound OBJECTIVE DATA Vital Signs: Vital Signs - 24 hr Temp Pulse Resp BP Pulse Ox 07/04/16 07:24 98.0 F 98 H 18 140/69 99 07/04/16 04:00 97.8 F 105 H 15 105/62 98 07/04/16 00:00 97.9 F 103 H 16 93/57 98 07/03/16 20:00 97.6 F 108 H 15 106/63 95 07/03/16 16:00 97.9 F 85 18 102/58 07/03/16 11:58 98.1 F 99 H 18 109/71 98 Pain Assessment - Last Documented Pain Intensity 4 Pain Scale Used 0-10 Pain Scale Intake and Output: Intake & Output 07/01/16 07/02/16 07/03/16 07/04/16 11:59 11:59 11:59 11:59 Intake Total 2787 Balance 2787 Lab Results: Lab Results-Last 24 Hours 07/04/16 07/04/16 Range/Units 05:25 05:25 WBC 5.9 (4.0-10.5) K/mm3 RBC 3.53 L (4.1-5.4) M/mm3 Hgb 11.2 L (12.0-16.0) gm/dl Hct 33.1 L (35-47) % MCV 93.8 (78-100) fl MCH 31.7 (26-32) pg MCHC 33.8 (32-36) g/dl RDW 13.2 (11.5-14.0) % Plt Count 257 (150-450) K/mm3 MPV 9.2 (6-9.5) fl Gran % 39.7 (36.0-66.0) % Lymphocytes % 45.5 H (24.0-44.0) % Monocytes % 9.5 (0.0-12.0) % Eosinophils % 4.6 (0.00-5.0) % Basophils % 0.7 (0.0-0.4) % Basophils # 0.04 (0-0.4) Sodium 144 (136-145) mEq/L Potassium 3.5 (3.5-5.1) mEq/L Chloride 109 H (98-107) mEq/L Carbon Dioxide 22.9 (21-32) mEq/L Anion Gap 15.5 H (5-15) MEQ/L BUN 5 L (9-20) mg/dL Creatinine 0.79 (0.55-1.30) mg/dl Estimated GFR > 60 ML/MIN Glucose 141 H (70-110) MG/DL Calcium 8.6 (8.5-10.1) mg/dL Total Bilirubin < 0.1 L (0.2-1.0) mg/dL AST 18 (15-37) U/L ALT 10 L (12-78) U/L Alkaline Phosphatase 74 (46-116) U/L Serum Total Protein 6.0 L (6.4-8.2) gm/dL Albumin 3.3 L (3.4-5.0) g/dL Assessment/Plan (1) Withdrawal from opioids Current Visit: Yes Status: Acute Assessment & Plan: decreased the percocet to 5mg po q4h prn. I'm unsure what doses of dilaudid she was receiving in [facility] and for how long. Code(s): F11.23 - OPIOID DEPENDENCE WITH WITHDRAWAL (2) Suicidal ideation Current Visit: Yes Status: Acute Assessment & Plan: Her mom states today that pt just "flippantly" said she was suicidal because she was feeling bad physically on admission. However, yesterday the patient brought it up herself to me and stated suicidal ideation again, a day after admission. [facility] consult report is pending. Code(s): R45.851 - SUICIDAL IDEATIONS (3) Abdominal pain Current Visit: Yes Status: Acute Qualifiers: Abdominal location: generalized Qualified Code(s): R10.84 - Generalized abdominal pain Assessment & Plan: improved somewhat. will increase diet and decrease the anti-emetics. Code(s): R10.9 - UNSPECIFIED ABDOMINAL PAIN (4) Skin lesion Current Visit: Yes Status: Acute Code(s): L98.9 - DISORDER OF THE SKIN AND SUBCUTANEOUS TISSUE, UNSPECIFIED (5) Nausea Current Visit: Yes Status: Acute Assessment & Plan: improved. Code(s): R11.0 - NAUSEA
[2016-07-04] MEDS: ZOVIRAX 200 MG PO SCH (09:09)
[2016-07-04] MEDS: Flonase NASAL NS SCH (09:11)
[2016-07-04] MEDS: ZOFRAN ODT 4 MG PO PRN ×2 (09:39→10:29)
[2016-07-04] MEDS: PROTONIX 40 MG IV IV SCH (09:39)
[2016-07-04] MEDS ORDERED: BUSPAR 5 MG PO SCH (10:00)
[2016-07-04 11:18] VITALS: BP 89/57; PULSE 82; O2SAT 98
[2016-07-05] MEDS ORDERED: Protonix 20MG Tablet PO SCH (10:00)
== END 2016-07-04 16:42 | disposition short-term general hospital (02) | DRG 897 ==
LOC: ED 18:18 → MED SURG 21:08 → OBSVTOIN 07-03 10:17 → MED SURG 07-03 10:17
PROVIDERS: ADMIT Family Medicine; ATTEND Family Medicine
DX: F11.23 Opioid dependence with withdrawal (principal); R45.851 Suicidal ideations; R10.84 Generalized abdominal pain; L98.9 Disorder of the skin and subcutaneous tissue, unspecified; R11.0 Nausea
CPT/HCPCS: 36000; 36415; 71010; 80053; 80307; 81000; 82150; 83690; 84484; 84703; 85025; 87086; 90791; 93005; 93268; 96360; 96372; 99285; G0378; J1170; J2550; J3410; Q0162; Q3014

== ENCOUNTER 2016-09-12 13:22 | Observation (INO) | payer OTHER ==
--- NOTE | 2016-09-12 13:51 | ERPHSYRPT ---
- History of Present Illness Time Seen by Provider: 09/12/16 13:46 Source: patient Exam Limitations: no limitations Patient Subjective Stated Complaint: pt here for fever,n/v/d that started friday, Triage Nursing Assessment: pt alert, resp easy,skin w/d pink. lips moist, walked in Physician History: Pt. with vomiting/diarrhea began 4 days ago. States unable to keep any fluids/ solids down. States initially with generalized abdominal pain, dry cough but now improved. Also with dizziness, weakness, myalgia, temp. 99.9 2 days ago, but no urinary symptoms. States no one else sick that she has been around. LMP "last month." Timing/Duration: day(s) (4) Cough Quality/Degree: moderate Possible Cause: occasional episodes Modifying Factors: Improves With: other (Jayden lambert minimal relief) Associated Symptoms: fever, chills, cough, dizziness, headache, muscle aches, nasal congestion, sore throat, No chest pain/soreness, No shortness of breath International travel in last 2 weeks: No Allergies/Adverse Reactions: adhesive tape Allergy (Intermediate, Verified 09/12/16 13:38) Blisters [place]ik Allergy (Verified 09/12/16 13:38) paroxetine HCl [From Paxil] Adverse Reaction (Verified 09/12/16 13:38) Nausea Home Medications: Fluticasone Propionate [Flonase NASAL] 16 gm NS DAILY 05/29/16 [History] Acetaminophen [Tylenol Extra Strength] 500 mg PO Q6HPRN PRN 06/24/16 [History] Ranitidine HCl [Zantac] 150 mg PO DAILY PRN PRN 07/02/16 [History] Clonazepam [Klonopin] 1 mg BID 09/12/16 [History] Gabapentin 100 mg TID 09/12/16 [History] Hx Tetanus, Diphtheria Vaccination/Date Given: Yes Hx Influenza Vaccination/Date Given: Yes Hx Pneumococcal Vaccination/Date Given: No Immunizations Up to Date: Yes - Review of Systems Constitutional: Fever, Chills, Fatigue, Malaise, Weakness Eyes: No Symptoms Ears, Nose, & Throat: Nose Congestion, Nose Discharge, Throat Pain, No Painful Swallowing Respiratory: Cough, No Dyspnea Cardiac: No Chest Pain, No Edema, No Syncope Abdominal/Gastrointestinal: Nausea, Vomiting, No Abdominal Pain, No Hematemesis , No Hematochezia Genitourinary Symptoms: No Symptoms, No Dysuria Musculoskeletal: No Back Pain, No Neck Pain Skin: No Rash Neurological: No Symptoms, Dizziness, Headache, No Focal Weakness, No Sensory Changes Psychological: No Symptoms, No Alcohol Abuse, No Drug Abuse Endocrine: No Symptoms All Other Systems: Reviewed and Negative - Past Medical History Pertinent Past Medical History: Yes Neurological History: Migraines ENT History: No Pertinent History Cardiac History: No Pertinent History Respiratory History: Asthma Endocrine Medical History: No Pertinent History Musculoskeletal History: No Pertinent History GI Medical History: Crohns Disease, GERD, Gallbladder Disease, Irritable Bowel History: No Pertinent History, Other Psycho-Social History: Depression Female Reproductive Disorders: Other Other Medical History: Reports Crohns; cysts on ovaries - Past Surgical History Past Surgical History: Yes Neuro Surgical History: No Pertinent History Cardiac: No Pertinent History Respiratory: No Pertinent History Gastrointestinal: Cholecystectomy Genitourinary: Other Musculoskeletal: Orthopedic Surgery Female Surgical History: No Pertinent History Other Surgical History: right rotator cuff repair. Ear tubes bilat,ovarian cyst 2016. ovarian cyst removal jun 2016. colonscopy jun 2016 - Social History Smoking Status: Former smoker Exposure to second hand smoke: Yes Alcohol Use: None Drug Use: none Patient Lives Alone: No Significant Family History: no pertinent family hx - Female History Hx Last Menstrual Period: august Hx Now: (UNKNOWN) - Nursing Vital Signs Nursing Vital Signs: Initial Vital Signs Temperature 97.9 F Temperature Source Oral Pulse Rate 105 Respiratory Rate 16 Blood Pressure [Right Arm] 86/51 Pain Intensity 0 - Physical Exam General Appearance: no apparent distress, alert Eye Exam: PERRL/EOMI, eyes nml inspection Ears, Nose, Throat Exam: TMs normal, pharynx normal, dry mucous membranes Neck Exam: normal inspection, non-tender, supple, full range of motion Respiratory Exam: normal breath sounds, lungs clear, No respiratory distress Cardiovascular Exam: normal heart sounds, tachycardia, capillary refill <2 sec Gastrointestinal/Abdomen Exam: soft, normal bowel sounds, No tenderness, No distention Back Exam: normal inspection, No CVA tenderness, No vertebral tenderness Extremity Exam: normal inspection, normal range of motion Neurologic Exam: alert, oriented x 3, cooperative, 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, normal mood/affect, sensation nml, No motor deficits Skin Exam: normal color, warm, dry, No rash Lymphatic Exam: No adenopathy SpO2: 96 Oxygen Delivery: Room Air - Course Nursing assessment & vital signs reviewed: Yes Ordered Tests: Active Orders 24 hr Category Date Time Status Clean Catch Urine Specimen STAT Care 09/12/16 13:58 Active Clean Catch Urine Specimen STAT Care 09/12/16 14:36 Active IV Insertion STAT Care 09/12/16 13:58 Active Orthostatic Vital Signs STAT Care 09/12/16 13:58 Active OBSTR/ACUTE ABDOMEN SERIES Stat Exams 09/12/16 13:59 Completed AMYLASE Stat Lab 09/12/16 14:10 Completed CBC W DIFF Stat Lab 09/12/16 14:10 Completed CMP Stat Lab 09/12/16 14:10 Completed HCG,QUALITATIVE URINE Stat Lab 09/12/16 14:15 Completed LIPASE Stat Lab 09/12/16 14:10 Completed Manual Differential NC Stat Lab 09/12/16 14:10 Completed UA W/ MICROSCOPIC Stat Lab 09/12/16 14:30 Completed Urine Triage Profile Stat Lab 09/12/16 14:36 Completed Medication Summary Discontinued Medications Generic Name Dose Route Start Last Admin Trade Name Freq PRN Reason Stop Dose Admin Famotidine 20 mg 09/12/16 14:02 09/12/16 14:27 Pepcid 20 Mg Vial IV 09/12/16 14:03 20 mg STAT ONE Administration Famotidine Confirm 09/12/16 14:25 Pepcid 20 Mg Vial Administered 09/12/16 14:26 Dose 20 mg IV .STK-MED ONE Sodium Chloride 1,000 mls @ 999 mls/hr 09/12/16 13:58 09/12/16 14:27 Sodium Chloride 0.9% 1000 Ml IV 09/12/16 14:58 999 mls/hr .Q1H1M STA Administration Sodium Chloride Confirm 09/12/16 14:25 Sodium Chloride 0.9% 1000 Ml Administered 09/12/16 14:26 Dose 1,000 mls @ ud .ROUTE .STK-MED ONE Sodium Chloride 1,000 mls @ 999 mls/hr 09/12/16 15:36 09/12/16 15:37 Sodium Chloride 0.9% 1000 Ml IV 09/12/16 16:36 999 mls/hr .Q1H1M STA Administration Sodium Chloride Confirm 09/12/16 15:34 Sodium Chloride 0.9% 1000 Ml Administered 09/12/16 15:35 Dose 1,000 mls @ ud .ROUTE .STK-MED ONE Ondansetron HCl 4 mg 09/12/16 13:58 09/12/16 14:27 Zofran 4 Mg/2 Ml Vial IV 09/12/16 13:59 4 mg STAT ONE Administration Ondansetron HCl Confirm 09/12/16 14:25 Zofran 4 Mg/2 Ml Vial Administered 09/12/16 14:26 Dose 4 mg .ROUTE .STK-MED ONE Lab/Rad Data: Laboratory Result Diagrams 09/12/16 14:10 09/12/16 14:10 Laboratory Results 09/12/16 09/12/16 09/12/16 Range/Units 14:36 14:30 14:15 WBC (4.0-10.5) K/mm3 RBC (4.1-5.4) M/mm3 Hgb (12.0-16.0) gm/dl Hct (35-47) % MCV (78-100) fl MCH (26-32) pg MCHC (32-36) g/dl RDW (11.5-14.0) % Plt Count (150-450) K/mm3 MPV (6-9.5) fl Segmented Neutrophils (36.0-66.0) % Lymphocytes (Manual) (24-44) % Monocytes (Manual) (0.0-12.0) % Differential Comment Toxic Granulation Platelet Estimate (NORMAL) Sodium (136-145) mEq/L Potassium (3.5-5.1) mEq/L Chloride (98-107) mEq/L Carbon Dioxide (21-32) mEq/L Anion Gap (5-15) MEQ/L BUN (9-20) mg/dL Creatinine (0.55-1.30) mg/dl Estimated GFR ML/MIN Glucose (70-110) MG/DL Calcium (8.5-10.1) mg/dL Total Bilirubin (0.2-1.0) mg/dL AST (15-37) U/L ALT (12-78) U/L Alkaline Phosphatase (46-116) U/L Serum Total Protein (6.4-8.2) gm/dL Albumin (3.4-5.0) g/dL Amylase (25-115) U/L Lipase (73-393) U/L Ur Collection Type CCMS Urine Color YELLOW (YELLOW) Urine Appearance CLOUDY (CLEAR) Urine pH 6.0 (5-6) Ur Specific [place] 1.020 (1.005-1.025) Urine Protein 30 (Negative) Urine Glucose (UA) NEGATIVE (NEGATIVE) mg/dL Urine Ketones >=160 (NEGATIVE) Urine Nitrite NEGATIVE (NEGATIVE) Urine Bilirubin MODERATE (NEGATIVE) Urine Urobilinogen 0.2 (0-1) mg/dL Urine WBC (Auto) NEGATIVE (NEGATIVE) Urine RBC (Auto) SMALL (0-5) [place]/ul Urine Microscopic RBC 0-2 (0-2) /HPF Urine Microscopic WBC 2-5 (0-5) /HPF Ur Epithelial Cells MANY (FEW) /HPF Urine Bacteria RARE (NEGATIVE) /HPF Urine Mucus MANY (NEGATIVE) /HPF Urine HCG, Qual NEGATIVE (Negative) Urine Opiates Level NEG. (NEGATIVE) Ur Methadone NEG. (NEGATIVE) Urine Barbiturates NEG. (NEGATIVE) Ur Phencyclidine (PCP) NEG. (NEGATIVE) Urine Amphetamine NEG. (NEGATIVE) U Benzodiazepine Level NEG. (NEGATIVE) Urine Cocaine NEG. (NEGATIVE) Urine Marijuana (THC) NEG. (NEGATIVE) Specimen Received 09-12-16 1430 09/12/16 09/12/16 Range/Units 14:10 14:10 WBC 5.7 (4.0-10.5) K/mm3 RBC 4.90 (4.1-5.4) M/mm3 Hgb 15.4 (12.0-16.0) gm/dl Hct 44.1 (35-47) % MCV 90.0 (78-100) fl MCH 31.4 (26-32) pg MCHC 34.9 (32-36) g/dl RDW 12.5 (11.5-14.0) % Plt Count 178 (150-450) K/mm3 MPV 9.5 (6-9.5) fl Segmented Neutrophils 60 (36.0-66.0) % Lymphocytes (Manual) 33 (24-44) % Monocytes (Manual) 7 (0.0-12.0) % Differential Comment NORMAL Toxic Granulation 1+ Platelet Estimate NORMAL (NORMAL) Sodium 139 (136-145) mEq/L Potassium 3.5 (3.5-5.1) mEq/L Chloride 102 (98-107) mEq/L Carbon Dioxide 20.6 L (21-32) mEq/L Anion Gap 20.2 H (5-15) MEQ/L BUN 11 (9-20) mg/dL Creatinine 0.85 (0.55-1.30) mg/dl Estimated GFR > 60 ML/MIN Glucose 82 (70-110) MG/DL Calcium 9.4 (8.5-10.1) mg/dL Total Bilirubin 0.4 (0.2-1.0) mg/dL AST 34 (15-37) U/L ALT 43 (12-78) U/L Alkaline Phosphatase 102 (46-116) U/L Serum Total Protein 7.8 (6.4-8.2) gm/dL Albumin 4.1 (3.4-5.0) g/dL Amylase 58 (25-115) U/L Lipase 104 (73-393) U/L Ur Collection Type Urine Color (YELLOW) Urine Appearance (CLEAR) Urine pH (5-6) Ur Specific [place] (1.005-1.025) Urine Protein (Negative) Urine Glucose (UA) (NEGATIVE) mg/dL Urine Ketones (NEGATIVE) Urine Nitrite (NEGATIVE) Urine Bilirubin (NEGATIVE) Urine Urobilinogen (0-1) mg/dL Urine WBC (Auto) (NEGATIVE) Urine RBC (Auto) (0-5) [place]/ul Urine Microscopic RBC (0-2) /HPF Urine Microscopic WBC (0-5) /HPF Ur Epithelial Cells (FEW) /HPF Urine Bacteria (NEGATIVE) /HPF Urine Mucus (NEGATIVE) /HPF Urine HCG, Qual (Negative) Urine Opiates Level (NEGATIVE) Ur Methadone (NEGATIVE) Urine Barbiturates (NEGATIVE) Ur Phencyclidine (PCP) (NEGATIVE) Urine Amphetamine (NEGATIVE) U Benzodiazepine Level (NEGATIVE) Urine Cocaine (NEGATIVE) Urine Marijuana (THC) (NEGATIVE) Specimen Received - Progress Progress: improved Air Movement: fair Progress Note: 09/12/16 18:23 Pt. feels better but still tachycardic and orthostatic. Also vomited X 1 in ED. Blood Culture(s) Obtained: No Antibiotics given: No Discussed with : Ebenezer (Agreed to admiting) Will see patient in: hospital (observation) Counseled pt/family regarding: lab results, diagnosis - Departure Time of Disposition: 18:25 Departure Disposition: Observation Clinical Impression: Vomiting, Dehydration Condition: Stable Critical Care Time: No
[2016-09-12] MEDS ORDERED: Zofran 4 MG/2 ML VIAL IV ONE (13:58)
[2016-09-12] MEDS ORDERED: Sodium Chloride 0.9% 1000 ML 1,000 ML IV STA ×2 (13:58→15:36)
[2016-09-12] MEDS ORDERED: Pepcid 20 MG VIAL IV ONE ×2 (14:02→14:25)
[2016-09-12 14:13] LABS: Mean Corpuscular Hemoglobin 31.4 pg (26-32); Mean Platelet Volume 9.5 fl (6-9.5); Platelet Count 178 K/mm3 (150-450); Red Cell Distribution Width 12.5 % (11.5-14.0); White Blood Count 5.7 K/mm3 (4.0-10.5)
[2016-09-12] MEDS ORDERED: Zofran 4 MG/2 ML VIAL ONE (14:25)
[2016-09-12] MEDS ORDERED: Sodium Chloride 0.9% 1000 ML 1,000 ML ONE ×3 (14:25→18:57)
[2016-09-12 14:27] LABS: ALBUMIN 4.1 g/dL (3.4-5.0); ALKALINE PHOSPHATASE 102 U/L (46-116); ANION GAP 20.2 MEQ/L (5-15); BILIRUBIN,TOTAL 0.4 mg/dL (0.2-1.0); BLOOD UREA NITROGEN 11 mg/dL (9-20); CHLORIDE 102 mEq/L (98-107); Carbon Dioxide 20.6 mEq/L (21-32); Glucose 82 MG/DL (70-110); LIPASE 104 U/L (73-393); Potassium 3.5 mEq/L (3.5-5.1); SGOT/AST 34 U/L (15-37); SGPT/ALT 43 U/L (12-78); SODIUM 139 mEq/L (136-145); Total Protein 7.8 gm/dL (6.4-8.2)
[2016-09-12 14:31] LABS: Collection Type CCMS
[2016-09-12 14:32] LABS: COMPLETE URINE MICROSCOPIC? YES
[2016-09-12 14:36] LABS: Bacteria RARE /HPF (NEGATIVE); Epithelial Cells MANY /HPF (FEW); Mucus MANY /HPF (NEGATIVE)
--- NOTE | 2016-09-12 15:06 | XRAY ---
Indication: Abdominal pain. Comparison: Chest exam July 02, 2016. 2 views of the abdomen nonacute and nonobstructed with previous cholecystectomy. Solid organs and osseous structures unremarkable. Single PA chest again demonstrates normal heart, lungs, and bony thorax. Impression: Nonacute nonobstructed abdomen. Stable 1 view chest.
[2016-09-12 16:32] LABS: Platelet Estimate NORMAL (NORMAL); Total Cells Counted 100; Toxic Granulation 1+
[2016-09-12] MEDS: Dextrose 5%-Lr IV Solution 1000 ML 1,000 ML IV SCH (19:54)
[2016-09-12] MEDS: SUBLIMAZE 100 MCG/2 ML IV PRN (20:26)
[2016-09-12] MEDS ORDERED: Klonopin 0.5 MG PO SCH (20:30)
[2016-09-12] MEDS ORDERED: Pepcid 20 MG PO PRN (20:35)
[2016-09-12] MEDS: Zofran 4 MG/2 ML VIAL IV PRN (20:39)
[2016-09-12] MEDS: Neurontin 100 MG PO SCH (22:17)
[2016-09-12] MEDS: REMERON 30 MG PO SCH (22:23)
[2016-09-12] MEDS: BENADRYL 50 MG/ML IV PRN (22:25)
[2016-09-12] MEDS: Flonase NASAL NS SCH (22:26)
[2016-09-13] MEDS ORDERED: Ambien 5 MG Tablet PO ONE (00:30)
[2016-09-13] MEDS: SUBLIMAZE 100 MCG/2 ML IV PRN ×6 (00:39→21:31)
[2016-09-13] MEDS: Dextrose 5%-Lr IV Solution 1000 ML 1,000 ML IV SCH ×3 (03:21→19:54)
[2016-09-13] MEDS: BENADRYL 50 MG/ML IV PRN ×4 (04:34→19:58)
[2016-09-13] MEDS ORDERED: Klonopin 0.5 MG PO PRN (06:36)
[2016-09-13] MEDS: Zofran 4 MG/2 ML VIAL IV PRN ×3 (08:53→21:29)
[2016-09-13] MEDS ORDERED: TYLENOL EXTRA STRENGTH 500 MG PO PRN (09:08)
--- NOTE | 2016-09-13 09:19 | PCM.SSS ---
History of Present Illness - Chief Complaint Chief Complaint: vomiting dehydration History of Present Illness: is a 20 year old female pt of mine who c/o 4-5d of vomiting and diarrhea. Temp to 99.9 once. Not tolerating po well. She came into the ER yesterday with HR in 130s and orthostatic. She also developed chest pain that was 7/10, she thinks due to her vomiting; down to 2/10 with IV fentanyl. Currently 5/10 (pain is L lower chest/LUQ and radiates to R lower chest). EKG done last night, with one troponin. No vomiting since admission. Diarrhea x 1 last night. No nausea this morning; eugene CLD. She has a hx chronic GI issues, she reports Crohn's disease but the colonoscopy report I saw did not support this diagnosis. - Review of Systems Constitutional: Fever (subj) Cardiac: Chest Pain Abdominal/Gastrointestinal: Abdominal Pain, Nausea, Vomiting, Diarrhea, Appetite Changes All Other Systems: Reviewed and Negative Medications & Allergies Home Medications: Home Medication List Fluticasone Propionate [Flonase NASAL] 16 gm NS DAILY 05/29/16 [History Confirmed 09/12/16] Acetaminophen [Tylenol Extra Strength] 500 mg PO Q6HPRN PRN 06/24/16 [History Confirmed 09/12/16] Ranitidine HCl [Zantac] 150 mg PO DAILY PRN PRN 07/02/16 [History Confirmed 03/21] Amitriptyline HCl 25 mg [Elavil 25 mg] 50 mg PO HS 09/12/16 [History Confirmed 09/12/16] Clonazepam [Klonopin] 0.5 mg TID 09/12/16 [History Confirmed 09/12/16] Gabapentin 200 mg TID 09/12/16 [History Confirmed 09/12/16] Mirtazapine 45 mg PO HS 09/12/16 [History Confirmed 09/12/16] Allergies/Adverse Reactions: Allergies Allergy/AdvReac Type Severity Reaction Status Date / Time adhesive tape Allergy Intermediate Blisters Verified 09/12/16 13:38 [email or web address] Allergy Verified 09/12/16 13:38 paroxetine HCl [From Paxil] AdvReac Nausea Verified 09/12/16 13:38 - Past Medical History Past Medical History: Yes Neurological History: Migraines ENT History: No Pertinent History Cardiac History: No Pertinent History Respiratory History: Asthma Endocrine Medical History: No Pertinent History Musculoskelatal History: No Pertinent History GI Medical History: Crohns Disease, GERD, Gallbladder Disease, Irritable Bowel History: No Pertinent History Pyscho-Social History: Depression Reproductive Disorders: Other Comment: Reports Crohns; cysts on ovaries - Female History Hx Last Menstrual Period: august Are you now?: No - Past Surgical History Past Surgical History: Yes Neuro Surgical History: No Pertinent History Cardiac History: No Pertinent History Respiratory Surgery: No Pertinent History GI Surgical History: Cholecystectomy Genitourinary Surgical Hx: Other Musculskeletal Surgical Hx: Orthopedic Surgery Female Surgical History: No Pertinent History Other Surgical History: right rotator cuff repair. Ear tubes bilat,ovarian cyst 2017. ovarian cyst removal jun 2016. colonscopy jun 2016 - Social History Smoking Status: Former smoker Exposure to second hand smoke: Yes Alcohol: None Drug Use: none Significant Family History: no pertinent family hx - Physical Exam Vital Signs: Vital Signs - 24 hr Temp Pulse Resp BP Pulse Ox 09/13/16 08:00 97.9 F 98 H 18 80/47 98 09/13/16 04:41 16 09/13/16 04:00 97.9 F 94 H 16 109/64 96 09/13/16 00:42 12 09/13/16 00:00 97.9 F 92 H 12 112/74 97 09/12/16 20:41 97.8 F 109 H 12 97/61 96 09/12/16 18:25 96 09/12/16 18:14 105 H 16 86/51 100 09/12/16 17:09 122 H 16 100/62 100 09/12/16 16:00 105 H 18 102/66 100 09/12/16 15:02 112 H 22 101/68 98 09/12/16 14:29 126 H 24 100/72 97 09/12/16 13:32 97.9 F 124 H 16 98/63 96 General Appearance: no apparent distress Neurologic Exam: alert, oriented x 3, cooperative Eye Exam: eyes nml inspection Neck Exam: normal inspection Respiratory Exam: normal breath sounds, lungs clear, No crackles/rales, No rhonchi, No wheezing Cardiovascular Exam: regular rate/rhythm, normal heart sounds, No murmur Gastrointestinal/Abdomen Exam: soft, normal bowel sounds, No tenderness, No distention, No mass Back Exam: normal inspection, No CVA tenderness Extremity Exam: No pedal edema, No swelling Skin Exam: normal color, warm, dry Results - Labs Lab/Micro Results: Lab Results-Last 24 Hours 09/12/16 Range/Units 20:27 Troponin I < 0.017 (0.000-0.056) ng/ml Hospital Summary - Hospital Course Hospital Course: Pt admitted with N/V/D and dehydration, tachycardic. Much better wtih IV fluids. If tolerates po well this afternoon, will d/c home. - Vitals & Intake/Output Vital Signs: Vital Signs Temperature 97.9 F 09/13/16 08:00 Pulse Rate 98 H 09/13/16 08:00 Respiratory Rate 18 09/13/16 08:00 Blood Pressure 80/47 09/13/16 08:00 O2 Sat by Pulse Oximetry 98 09/13/16 08:00 Intake & Output: Intake & Output 09/10/16 09/11/16 09/12/16 09/13/16 11:59 11:59 11:59 11:59 Intake Total 1601 Balance 1601 Weight 53.388 kg - Lab Result Diagrams: 09/12/16 14:10 09/12/16 14:10 Lab Results-Last 24 Hrs: Lab Results-Last 24 Hours 09/12/16 Range/Units 20:27 Troponin I < 0.017 (0.000-0.056) ng/ml - Procedures and Test Procedures and Tests throughout Hospitalization: Therapy Orders & Screens 09/12/16 20:09 EKG NOW Comment: Diagnosis: Vomiting - Discharge Disposition: Home, Self-Care Condition: Stable Prescriptions: No Action Fluticasone Propionate [Flonase NASAL] 16 gm NS DAILY Acetaminophen [Tylenol Extra Strength] 500 mg PO Q6HPRN PRN PRN Reason: Pain Ranitidine HCl [Zantac] 150 mg PO DAILY PRN PRN PRN Reason: Stomach Upset Gabapentin 200 mg TID Clonazepam [Klonopin] 0.5 mg TID Amitriptyline HCl 25 mg [Elavil 25 mg] 50 mg PO HS Mirtazapine 45 mg PO HS Follow up with: PENNY CHENG [Primary Care Provider] -
[2016-09-13] MEDS: Neurontin 100 MG PO SCH ×3 (10:19→21:29)
[2016-09-13] MEDS: Flonase NASAL NS SCH (10:19)
[2016-09-13] MEDS: REMERON 30 MG PO SCH (21:29)
[2016-09-14] MEDS: BENADRYL 50 MG/ML IV PRN ×2 (02:19→07:42)
[2016-09-14] MEDS: SUBLIMAZE 100 MCG/2 ML IV PRN ×2 (02:21→07:41)
[2016-09-14] MEDS: Dextrose 5%-Lr IV Solution 1000 ML 1,000 ML IV SCH ×2 (02:33→10:20)
[2016-09-14 07:26] VITALS: O2SAT 100
[2016-09-14] MEDS: Zofran 4 MG/2 ML VIAL IV PRN (07:42)
[2016-09-14] MEDS: Neurontin 100 MG PO SCH (10:19)
[2016-09-14] MEDS: Flonase NASAL NS SCH (10:19)
--- NOTE | 2016-09-14 10:41 | PCM.DCORD ---
- Discharge Discharge Date: 09/14/16 Disposition: Home, Self-Care Condition: Fair Prescriptions: New Ondansetron [Zofran Odt] 4 mg PO Q6H PRN #20 tab.rapdis PRN Reason: Nausea Continue Fluticasone Propionate [Flonase NASAL] 16 gm NS DAILY Acetaminophen [Tylenol Extra Strength] 500 mg PO Q6HPRN PRN PRN Reason: Pain Ranitidine HCl [Zantac] 150 mg PO DAILY PRN PRN PRN Reason: Stomach Upset Gabapentin 200 mg TID Clonazepam [Klonopin] 0.5 mg TID Amitriptyline HCl 25 mg [Elavil 25 mg] 50 mg PO HS Mirtazapine 45 mg PO HS Follow up with: PENNY CHENG [Primary Care Provider] -
[2016-09-14 12:06] VITALS: BP 108/62; PULSE 100
--- NOTE | 2016-09-16 09:35 | DS ---
DISCHARGE DIAGNOSES: 1) NAUSEA WITH VOMITING. 2) DIARRHEA. DISCHARGE PHYSICAL EXAMINATION: VITALS: Temperature current 98.2F, temperature max 98.3F, heart rate 96 to 112 current 99, respiratory rate 15 to 18, blood pressure 92 to 103 over 52 to 58. Oxygen saturation 99 to 100% on room air. GENERAL: The patient is sitting up in bed in no acute distress. Her mother is at the bedside. CVS: She has a regular rate and rhythm. No murmurs, gallops or rubs. CHEST: Clear to auscultation bilaterally. No crackles or wheezes. ABDOMEN: Soft, nontender, nondistended with normal bowel sounds. EXTREMITIES: No clubbing, cyanosis or edema. SKIN: Warm, dry and intact. HOSPITAL COURSE: 1) NAUSEA WITH VOMITING: The patient reports she has been able to take liquids without any problem and desires to go home. She prefers her diet at home as opposed to the hospital food here. She was ordered a bland diet. She has been taking liquids well and has been urinating well. She has been on IV fluids while she is here. I told her I could send her home with some Zofran 4 mg every six hours as needed for nausea 20 tablets and she will need to follow up with her primary care physician, Dr. Sol, this coming week. 2) DIARRHEA: She may continue with fluids, this may all be related to viral gastroenteritis. She also reports a history of Crohn's disease although Dr. Sol noted in her notes that she cannot find documentation of this. She also has a history of irritable bowel. DISCHARGE MEDICATIONS: She may resume all of her home medications as well as take Zofran 4 mg every six hours as needed for nausea or vomiting. FOLLOW UP: To follow up with Dr. Sol. DISPOSITION: The patient will be discharged to home in fair condition.
== END 2016-09-14 12:15 | disposition home or self-care (01) ==
LOC: ED 13:22 → MED SURG 18:45
PROVIDERS: ADMIT Family Medicine; ATTEND Family Medicine
DX: R11.2 Nausea with vomiting, unspecified (principal); R19.7 Diarrhea, unspecified; K50.90 Crohn's disease, unspecified, without complications; K58.9 Irritable bowel syndrome, unspecified; K21.9 Gastro-esophageal reflux disease without esophagitis; F33.1 Major depressive disorder, recurrent, moderate
CPT/HCPCS: 36000; 36415; 74022; 80053; 80307; 81000; 82150; 83690; 84484; 84703; 85025; 93005; 93268; 96360; 96361; 96374; 96375; 99285; G0378; J1200; J2405; J3010; A9270-GY

== ENCOUNTER 2017-01-02 09:39 | Emergency (ER) | payer OTHER ==
[2017-01-02] MEDS ORDERED: Lactated Ringers 1,000 ML IV ONE ×2 (10:19→10:23)
--- NOTE | 2017-01-02 10:26 | ERPHSYRPT ---
- History of Present Illness Time Seen by Provider: 01/02/17 10:14 Source: patient, family (mother) Patient Subjective Stated Complaint: pt co n/v since yesterday, vomited more than 10 times. unable to eat or dirink, loost stools but is normal for pt with chrons, at 5weeks and 6 days, see dr sol Triage Nursing Assessment: pt walked in, resp easy, skin w/d, pink. alert and in no distress Physician History: CC: vomiting Hx: 21 y/o patient of Dr Sol with early . She has hx of crohns disease. She has vomiting and feels dehydrated. No vaginal bleeding. No cramping. No fever or chills. Some dysuria. She had prior positive HCG in office and is scheduled for sonogram tomorrow. Severity of Pain-Max: moderate Severity of Pain-Current: moderate Allergies/Adverse Reactions: adhesive tape Allergy (Intermediate, Verified 01/02/17 10:00) Blisters [place] Allergy (Verified 01/02/17 10:00) paroxetine HCl [From Paxil] Adverse Reaction (Verified 01/02/17 10:00) Nausea Home Medications: Fluticasone Propionate [Flonase NASAL] 16 gm NS DAILY 05/29/16 [History] Acetaminophen [Tylenol Extra Strength] 500 mg PO Q6HPRN PRN 06/24/16 [History] Ranitidine HCl [Zantac] 150 mg PO DAILY PRN PRN 07/02/16 [History] Amitriptyline HCl 25 mg [Elavil 25 mg] 50 mg PO HS 09/12/16 [History] Clonazepam [Klonopin] 0.5 mg TID 09/12/16 [History] Gabapentin 200 mg TID 09/12/16 [History] Mirtazapine 45 mg PO HS 09/12/16 [History] Hx Tetanus, Diphtheria Vaccination/Date Given: Yes Hx Influenza Vaccination/Date Given: No Hx Pneumococcal Vaccination/Date Given: No - Review of Systems Constitutional: Fatigue, Malaise, Weakness, No Fever, No Chills Eyes: No Symptoms Ears, Nose, & Throat: No Symptoms Respiratory: No Cough, No Dyspnea Cardiac: No Chest Pain Abdominal/Gastrointestinal: Nausea, Vomiting, No Abdominal Pain, No Diarrhea Genitourinary Symptoms: Dysuria, , No Vaginal Bleeding Musculoskeletal: No Back Pain Skin: No Rash Neurological: No Focal Weakness, No Headache, No Parasthesia All Other Systems: Reviewed and Negative - Past Medical History Pertinent Past Medical History: Yes Neurological History: Migraines ENT History: No Pertinent History Cardiac History: No Pertinent History Respiratory History: Asthma Endocrine Medical History: No Pertinent History Musculoskeletal History: No Pertinent History GI Medical History: Crohns Disease, GERD, Gallbladder Disease, Irritable Bowel History: No Pertinent History Psycho-Social History: Depression Female Reproductive Disorders: Other Other Medical History: Reports Crohns; cysts on ovaries - Past Surgical History Past Surgical History: Yes Neuro Surgical History: No Pertinent History Cardiac: No Pertinent History Respiratory: No Pertinent History Gastrointestinal: Cholecystectomy Genitourinary: Other Musculoskeletal: Orthopedic Surgery Female Surgical History: No Pertinent History Other Surgical History: right rotator cuff repair. Ear tubes bilat,ovarian cyst 2016. ovarian cyst removal jun 2016. colonscopy jun 2016 - Social History Smoking Status: Former smoker Exposure to second hand smoke: Yes Alcohol Use: None Drug Use: none Patient Lives Alone: No Significant Family History: no pertinent family hx - Female History Hx Last Menstrual Period: november 2016 Hx Now: (UNKNOWN) - Nursing Vital Signs Nursing Vital Signs: Initial Vital Signs Temperature 99 F 01/02/17 09:55 Pulse Rate 89 01/02/17 09:55 Respiratory Rate 18 01/02/17 09:55 Blood Pressure 101/56 01/02/17 09:55 O2 Sat by Pulse Oximetry 96 01/02/17 09:55 Pain Scale Pain Intensity 3 - Physical Exam General Appearance: alert Eye Exam: PERRL/EOMI, other (pale conjunctiva) Ears, Nose, Throat Exam: moist mucous membranes Neck Exam: normal inspection, non-tender, supple Respiratory Exam: normal breath sounds Cardiovascular Exam: regular rate/rhythm Gastrointestinal/Abdomen Exam: soft, No tenderness, No distention, No mass, No guarding Back Exam: normal inspection Extremity Exam: normal inspection, normal range of motion Neurologic Exam: alert, oriented x 3, cooperative, sensation nml, No motor deficits Skin Exam: warm, dry, No rash SpO2 Interpretation: normal SpO2: 96 Oxygen Delivery: Room Air - Course Nursing assessment & vital signs reviewed: Yes - Radiology Ultrasound Exam ob Ultrasound: tele radiology report (5+2 week intrauterine gestation sac without evidence of pole) Ordered Tests: Active Orders 24 hr Category Date Time Status Cath for Specimen-Straight STAT Care 01/02/17 10:19 Inactive IV Insertion STAT Care 01/02/17 10:19 Active OB <14 WKS 1ST GESTATION [US] Stat Exams 01/02/17 10:27 Completed CBC W DIFF Stat Lab 01/02/17 10:40 Completed CMP Stat Lab 01/02/17 10:40 Completed CULTURE,URINE Stat Lab 01/02/17 10:40 Received HCG, Quantitative (Inhouse) Stat Lab 01/02/17 10:40 Completed UA W/ MICROSCOPIC Stat Lab 01/02/17 10:40 Completed Medication Summary Discontinued Medications Generic Name Dose Route Start Last Admin Trade Name Freq PRN Reason Stop Dose Admin Lactated Ringer's 1,000 mls @ 999 mls/hr 01/02/17 10:19 01/02/17 10:37 Lactated Ringers IV 01/02/17 11:19 999 mls/hr .Q1H1M ONE Administration Lactated Ringer's Confirm 01/02/17 10:23 Lactated Ringers Administered 01/02/17 10:24 Dose 1,000 mls @ ud IV .STK-MED ONE Promethazine HCl 12.5 mg 01/02/17 11:35 01/02/17 11:55 Phenergan 25 Mg Inj IM 01/02/17 11:36 12.5 mg STAT ONE Administration Promethazine HCl Confirm 01/02/17 11:49 Phenergan 25 Mg Inj Administered 01/02/17 11:50 Dose 25 mg .ROUTE .STK-MED ONE Lab/Rad Data: Laboratory Result Diagrams 01/02/17 10:40 01/02/17 10:40 Laboratory Results 01/02/17 01/02/17 01/02/17 Range/Units 10:40 10:40 10:40 WBC 11.4 H (4.0-10.5) K/mm3 RBC 4.16 (4.1-5.4) M/mm3 Hgb 13.4 (12.0-16.0) gm/dl Hct 39.6 (35-47) % MCV 95.2 (78-100) fl MCH 32.2 H (26-32) pg MCHC 33.8 (32-36) g/dl RDW 12.6 (11.5-14.0) % Plt Count 246 (150-450) K/mm3 MPV 9.6 H (6-9.5) fl Gran % 70.5 H (36.0-66.0) % Lymphocytes % 21.8 L (24.0-44.0) % Monocytes % 6.4 (0.0-12.0) % Eosinophils % 0.9 (0.00-5.0) % Basophils % 0.4 (0.0-0.4) % Basophils # 0.04 (0-0.4) Sodium 139 (136-145) mEq/L Potassium 3.3 L (3.5-5.1) mEq/L Chloride 104 (98-107) mEq/L Carbon Dioxide 23.0 (21-32) mEq/L Anion Gap 15.7 H (5-15) MEQ/L BUN 9 (9-20) mg/dL Creatinine 0.77 (0.55-1.30) mg/dl Estimated GFR > 60 ML/MIN Glucose 89 (70-110) MG/DL Calcium 9.5 (8.5-10.1) mg/dL Total Bilirubin 0.40 (0.2-1.0) mg/dL AST 21 (15-37) U/L ALT 19 (12-78) U/L Alkaline Phosphatase 74 (46-116) U/L Serum Total Protein 7.7 (6.4-8.2) gm/dL Albumin 4.3 (3.4-5.0) g/dL Beta HCG, Quant [id number] H (0-6) IU/L Ur Collection Type CCMS Urine Color YELLOW (YELLOW) Urine Appearance SLIGHTLY CLOUDY (CLEAR) Urine pH 5.0 (5-6) Ur Specific [place] 1.025 (1.005-1.025) Urine Protein TRACE (Negative) Urine Ketones MODERATE (NEGATIVE) Urine Blood TRACE NON-HEM (0-5) [place]/ul Urine Nitrite NEGATIVE (NEGATIVE) Urine Bilirubin NEGATIVE (NEGATIVE) Urine Urobilinogen NORMAL (0-1) mg/dL Ur Leukocyte Esterase TRACE (NEGATIVE) Urine Microscopic RBC 0-2 (0-2) /HPF Urine Microscopic WBC 0-2 (0-5) /HPF Ur Epithelial Cells FEW (FEW) /HPF Calcium Oxalate Crystal 10-25 (NEGATIVE) /HPF Urine Bacteria RARE (NEGATIVE) /HPF Urine Mucus MODERATE (NEGATIVE) /HPF Urine Glucose NEGATIVE (NEGATIVE) mg/dL Specimen Received 01-02-17 1100 - Progress Progress Note: 01/02/17 10:26 Dsicussed medication use in . She tried pyridoxine yesterday. She wants to wait on phenergan at this time. IVF bolus ordered. 01/02/17 12:52 IVF given. She chose to try phenergan- discussed possible side effects. Called Dr Sol who advised phenergan supp. Counseled pt/family regarding: lab results, diagnosis, need for follow-up, rad results - Departure Time of Disposition: 12:53 Departure Disposition: Home Clinical Impression: Vomiting, Early stage of Condition: Stable Critical Care Time: No Referrals: PENNY SOL [Primary Care Provider] - Instructions: -- Discomforts and Remedies Additional Instructions: Rx phenergan supp. Sip fluids. Call Dr Sol tomorrow with report. Prescriptions: Promethazine HCl 25 mg Supp [Phenergan 25 mg Supp] 25 mg RC Q6H PRN PRN # 10 supp.rect PRN Reason: nausea and vomiting
[2017-01-02 10:45] LABS: BASOPHIL % 0.4 % (0.0-0.4); Eosinophil % 0.9 % (0.00-5.0); Granulocytes % 70.5 % (36.0-66.0); Lymphocytes % 21.8 % (24.0-44.0); Mean Cell Volume 95.2 fl (78-100); Mean Corpuscular Hemoglobin 32.2 pg (26-32); Mean Platelet Volume 9.6 fl (6-9.5); Monocytes % 6.4 % (0.0-12.0); Platelet Count 246 K/mm3 (150-450); Red Blood Count 4.16 M/mm3 (4.1-5.4); Red Cell Distribution Width 12.6 % (11.5-14.0); White Blood Count 11.4 K/mm3 (4.0-10.5)
[2017-01-02 11:03] LABS: Collection Type CCMS; Leukocyte Esterase TRACE (NEGATIVE)
[2017-01-02 11:04] LABS: Bilirubin NEGATIVE (NEGATIVE); Blood TRACE NON-HEM Ery/ul (0-5); COMPLETE URINE MICROSCOPIC? YES; Glucose NEGATIVE (NEGATIVE)
[2017-01-02 11:05] LABS: ADD URINE CULTURE? YES (NO); Bacteria RARE /HPF (NEGATIVE); Epithelial Cells FEW /HPF (FEW); Mucus MODERATE /HPF (NEGATIVE); WBC 0-2 /HPF (0-5)
--- NOTE | 2017-01-02 11:31 | XRAY ---
Indication: Vomiting. Early . Two-dimensional transabdominal early OB ultrasound performed. Comparison: None Urinary bladder is not adequately distended producing poor acoustic window. Uterus is anteverted with a single intrauterine gestational sac measuring 1.21 cm corresponding to 5 weeks 2 days. Single yolk sac but no pole or heart tones. 1.3 cm left ovary cyst probably corpus luteal. Right ovary unremarkable. No suspicious adnexal mass or free fluid. Impression: Single intrauterine gestational sac measuring 5 weeks 2 days. No pole or heart tones presumed early . Correlate with serial beta hCG and follow-up sonogram regarding viability.
[2017-01-02 11:32] LABS: ALBUMIN 4.3 g/dL (3.4-5.0); ALKALINE PHOSPHATASE 74 U/L (46-116); ANION GAP 15.7 MEQ/L (5-15); BLOOD UREA NITROGEN 9 mg/dL (9-20); CHLORIDE 104 mEq/L (98-107); Glucose 89 MG/DL (70-110); HCG, Quantitative (Inhouse) 14046 IU/L (0-6); Potassium 3.3 mEq/L (3.5-5.1); SGOT/AST 21 U/L (15-37); SGPT/ALT 19 U/L (12-78); SODIUM 139 mEq/L (136-145); Total Protein 7.7 gm/dL (6.4-8.2)
[2017-01-02] MEDS ORDERED: Phenergan 25 MG INJ IM ONE (11:35)
[2017-01-02] MEDS ORDERED: Phenergan 25 MG INJ ONE (11:49)
[2017-01-02 13:34] VITALS: BP 118/80; PULSE 89; O2SAT 97
== END 2017-01-02 13:15 | disposition home or self-care (01) ==
LOC: ED 09:39
DX: O21.9 Vomiting of pregnancy, unspecified (principal); O99.611 Diseases of the digestive system complicating pregnancy, first trimester; Z3A.01 Less than 8 weeks gestation of pregnancy
CPT/HCPCS: 36000; 36415; 76801; 80053; 81000; 84702; 85025; 87086; 96360; 96372; 99284; J2550

== ENCOUNTER 2017-02-04 19:21 | Emergency (ER) | payer OTHER ==
[2017-02-04 19:36] VITALS: PULSE 83; O2SAT 100
[2017-02-04] MEDS ORDERED: TYLENOL 325 MG PO ONE (19:37)
[2017-02-04] MEDS ORDERED: Phenergan 25 MG INJ IM ONE (19:37)
[2017-02-04] MEDS ORDERED: Rocephin 1000 MG INJ IM ONE (19:38)
[2017-02-04] MEDS ORDERED: Phenergan 25 MG INJ ONE (19:41)
[2017-02-04] MEDS ORDERED: Rocephin 1000 MG INJ ONE (19:42)
[2017-02-04] MEDS ORDERED: TYLENOL 325 MG ONE (19:42)
[2017-02-04] MEDS ORDERED: XYLOCAINE 1% HCL 20 ML MDV ONE (19:43)
--- NOTE | 2017-02-04 19:43 | ERPHSYRPT ---
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 reports 4 episodes of vomiting. complains of photosensitivty. rates pain 10/10. pt also reports cough and sore throat. 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 resps are easy and non labored, lung sounds are clear and equal bilat. skin is pale warm and dry. radial pulses strong and equal. pain localized to the frontal head. Physician History: FOR THE PAST 2 WEEKS PT HAS HAD A COUGH AND SORE THROAT; FOR THE PAST HOUR A FRONTAL HEADACHE WITH PHOTOPHOBIA AND VOMITING X4. PT STATES SHE IS 10 WEEKS . Allergies/Adverse Reactions: adhesive tape Allergy (Intermediate, Verified 02/04/17 19:37) Blisters [place] Allergy (Verified 02/04/17 19:37) paroxetine HCl [From Paxil] Adverse Reaction (Verified 02/04/17 19:37) Nausea Home Medications: Fluticasone Propionate [Flonase NASAL] 16 gm NS DAILY 05/29/16 [History] Ranitidine HCl [Zantac] 150 mg PO DAILY PRN PRN 07/02/16 [History] Hx Tetanus, Diphtheria Vaccination/Date Given: Yes Hx Influenza Vaccination/Date Given: No Hx Pneumococcal Vaccination/Date Given: No Immunizations Up to Date: Yes - Review of Systems Eyes: Photophobia Ears, Nose, & Throat: Throat Pain Respiratory: Cough Abdominal/Gastrointestinal: Vomiting Neurological: Headache All Other Systems: Reviewed and Negative - Past Medical History Pertinent Past Medical History: Yes Neurological History: Migraines ENT History: No Pertinent History Cardiac History: No Pertinent History Respiratory History: Asthma Endocrine Medical History: No Pertinent History Musculoskeletal History: No Pertinent History GI Medical History: Crohns Disease, GERD, Gallbladder Disease, Irritable Bowel History: No Pertinent History Psycho-Social History: Depression Female Reproductive Disorders: Other Other Medical History: Reports Crohns; cysts on ovaries - Past Surgical History Past Surgical History: Yes Neuro Surgical History: No Pertinent History Cardiac: No Pertinent History Respiratory: No Pertinent History Gastrointestinal: Cholecystectomy Genitourinary: Other Musculoskeletal: Orthopedic Surgery Female Surgical History: No Pertinent History Other Surgical History: right rotator cuff repair. Ear tubes bilat,ovarian cyst 2017. ovarian cyst removal jun 2016. colonscopy jun 2016 - Social History Smoking Status: Never smoker Exposure to second hand smoke: Yes Alcohol Use: None Drug Use: none Patient Lives Alone: No Significant Family History: no pertinent family hx - Female History Hx Last Menstrual Period: 10 weeks gest Hx Now: (UNKNOWN) - Nursing Vital Signs Nursing Vital Signs: Initial Vital Signs Temperature 98.4 F 02/04/17 19:26 Pulse Rate 83 02/04/17 19:26 Respiratory Rate 20 02/04/17 19:26 Blood Pressure 125/72 02/04/17 19:26 O2 Sat by Pulse Oximetry 100 02/04/17 19:26 Pain Scale Pain Intensity 10 - Physical Exam General Appearance: alert Eye Exam: PERRL/EOMI, photophobia Ears, Nose, Throat Exam: TMs normal, moist mucous membranes, pharyngeal erythema , other (NASAL TURBINATES ERYTHEMATOUS AND MILDLY EDEMATOUS) Neck Exam: normal inspection Respiratory Exam: lungs clear Cardiovascular Exam: normal heart sounds Gastrointestinal/Abdomen Exam: soft, normal bowel sounds, No tenderness Back Exam: normal range of motion Extremity Exam: normal inspection, No pedal edema Neurologic Exam: alert, cooperative, sensation nml, other (NO BABINSKI PRESENT) , No motor deficits Skin Exam: warm, dry SpO2 Interpretation: normal SpO2: 100 Oxygen Delivery: Room Air - Course Nursing assessment & vital signs reviewed: Yes - Departure Time of Disposition: 19:47 Departure Disposition: Home Clinical Impression: SINUSITIS, PHARYNGITIS Condition: Stable Critical Care Time: No Referrals: PENNY CHENG [Primary Care Provider] - Instructions: Sinus Headache, Pharyngitis/Tonsillopharyngitis -- Adult, Vomiting -- Adult Additional Instructions: FOLLOW UP WITH PRIVATE DOCTOR TOMORROW. Prescriptions: Acetaminophen 650 mg PO Q4H PRN PRN #30 tablet PRN Reason: Pain And/Or Fever Promethazine HCl 25 mg [Phenergan 25 mg] 25 mg PO Q4H PRN PRN #14 tablet PRN Reason: Nausea/Vomiting Cefdinir 300 mg [Omnicef 300 mg] 300 mg PO BID #20 capsule
[2017-02-04 20:27] VITALS: BP 97/58
== END 2017-02-04 20:26 | disposition home or self-care (01) ==
LOC: ED 19:21
DX: J32.9 Chronic sinusitis, unspecified (principal); J02.9 Acute pharyngitis, unspecified
CPT/HCPCS: 96372; 99284; J0696; J2550; A9270-GY

== ENCOUNTER 2017-02-07 18:07 | Emergency (ER) | payer OTHER ==
[2017-02-07] MEDS ORDERED: Lactated Ringers 1,000 ML IV ONE ×2 (18:24→18:26)
[2017-02-07 18:31] VITALS: O2SAT 99
[2017-02-07] MEDS ORDERED: Phenergan 25 MG INJ IM ONE (18:35)
--- NOTE | 2017-02-07 18:39 | ERPHSYRPT ---
- History of Present Illness Time Seen by Provider: 02/07/17 18:21 Source: patient, family (yee) Patient Subjective Stated Complaint: vomiting for one week. unable to keep liquids down today. 10 wks . Triage Nursing Assessment: ambulated to room per self. skin w/d, pale. resp nonlabored. Physician History: CC: vomiting/dehydration Hx: 21 y/o at 10 weeks . She has hx of Crohns. She has nausea and vomiting and was unable to keep down her phenergan today so came to eR. No fever or chills. Normal urination. No abd pain. No vaginal bleeding. Is on omnicef due to recent sore throat thru ER. Allergies/Adverse Reactions: adhesive tape Allergy (Intermediate, Verified 02/07/17 18:23) Blisters [place] Allergy (Verified 02/07/17 18:23) paroxetine HCl [From Paxil] Adverse Reaction (Verified 02/07/17 18:23) Nausea Home Medications: Fluticasone Propionate [Flonase NASAL] 16 gm NS DAILY 05/29/16 [History] Ranitidine HCl [Zantac] 150 mg PO DAILY PRN PRN 07/02/16 [History] Vits W-Ca,Fe,FA(<1Mg) [] 1 each PO DAILY 02/07/17 [History] Hx Tetanus, Diphtheria Vaccination/Date Given: Yes Hx Influenza Vaccination/Date Given: No Hx Pneumococcal Vaccination/Date Given: No - Review of Systems Constitutional: Malaise, Weakness, No Fever, No Chills Eyes: No Symptoms Ears, Nose, & Throat: No Symptoms Respiratory: No Cough Cardiac: No Chest Pain Abdominal/Gastrointestinal: Nausea, Vomiting, Diarrhea, No Abdominal Pain Genitourinary Symptoms: , No Dysuria, No Vaginal Bleeding Skin: No Rash Neurological: No Headache All Other Systems: Reviewed and Negative - Past Medical History Pertinent Past Medical History: Yes Neurological History: Migraines ENT History: No Pertinent History Cardiac History: No Pertinent History Respiratory History: Asthma Endocrine Medical History: No Pertinent History Musculoskeletal History: No Pertinent History GI Medical History: Crohns Disease, GERD, Gallbladder Disease, Irritable Bowel History: No Pertinent History Psycho-Social History: Depression Female Reproductive Disorders: Other Other Medical History: Reports Crohns; cysts on ovaries - Past Surgical History Past Surgical History: Yes Neuro Surgical History: No Pertinent History Cardiac: No Pertinent History Respiratory: No Pertinent History Gastrointestinal: Cholecystectomy Genitourinary: Other Musculoskeletal: Orthopedic Surgery Female Surgical History: No Pertinent History Other Surgical History: right rotator cuff repair. Ear tubes bilat,ovarian cyst 2017. ovarian cyst removal jun 2016. colonscopy jun 2016 - Social History Smoking Status: Never smoker Exposure to second hand smoke: Yes Alcohol Use: None Drug Use: none Patient Lives Alone: No Significant Family History: no pertinent family hx - Female History Hx Now: (UNKNOWN) - Nursing Vital Signs Nursing Vital Signs: Initial Vital Signs Temperature 98.2 F 02/07/17 18:16 Pulse Rate 88 02/07/17 18:16 Respiratory Rate 14 02/07/17 18:16 Blood Pressure 120/78 02/07/17 18:16 O2 Sat by Pulse Oximetry 99 02/07/17 18:16 Pain Scale Pain Intensity 3 - Physical Exam General Appearance: alert Eye Exam: PERRL/EOMI Ears, Nose, Throat Exam: normal ENT inspection, moist mucous membranes Neck Exam: normal inspection, non-tender, supple Respiratory Exam: normal breath sounds Cardiovascular Exam: regular rate/rhythm Gastrointestinal/Abdomen Exam: soft, No tenderness, No distention, No mass, No guarding Pelvic Exam: not done Extremity Exam: normal inspection, normal range of motion Neurologic Exam: alert, oriented x 3, cooperative, sensation nml, No motor deficits Skin Exam: warm, dry, pale SpO2 Interpretation: normal SpO2: 99 Oxygen Delivery: Room Air Procedures - Limited OB Ultrasound Results: + IUP (10+ 4 weeks gestation IUP with FHR 165, good movement) - Course Nursing assessment & vital signs reviewed: Yes Ordered Tests: Active Orders 24 hr Category Date Time Status IV Insertion STAT Care 02/07/17 18:24 Active cath [Cath for Specimen-Straight] STAT Care 02/07/17 18:42 Active CBC W DIFF Stat Lab 02/07/17 18:20 Completed CMP Stat Lab 02/07/17 18:20 Completed CULTURE,URINE Stat Lab 02/07/17 18:45 Received UA W/ MICROSCOPIC Stat Lab 02/07/17 18:45 Completed Medication Summary Generic Name Dose Route Start Last Admin Trade Name Freq PRN Reason Stop Dose Admin Lactated Ringer's 1,000 mls @ 999 mls/hr 02/07/17 18:24 02/07/17 18:26 Lactated Ringers IV 02/07/17 19:24 999 mls/hr .Q1H1M ONE Administration Discontinued Medications Generic Name Dose Route Start Last Admin Trade Name [place] PRN Reason Stop Dose Admin Lactated Ringer's Confirm 02/07/17 18:26 Lactated Ringers Administered 02/07/17 18:27 Dose 1,000 mls @ ud IV .STK-MED ONE Promethazine HCl 12.5 mg 02/07/17 18:35 02/07/17 18:48 Phenergan 25 Mg Inj IM 02/07/17 18:36 12.5 mg STAT ONE Administration Promethazine HCl Confirm 02/07/17 18:46 Phenergan 25 Mg Inj Administered 02/07/17 18:47 Dose 25 mg .ROUTE .STK-MED ONE Lab/Rad Data: Laboratory Result Diagrams 02/07/17 18:20 02/07/17 18:20 Laboratory Results 02/07/17 02/07/17 02/07/17 Range/Units 18:45 18:20 18:20 WBC 12.4 H (4.0-10.5) K/mm3 RBC 4.13 (4.1-5.4) M/mm3 Hgb 13.3 (12.0-16.0) gm/dl Hct 38.5 (35-47) % MCV 93.2 (78-100) fl MCH 32.2 H (26-32) pg MCHC 34.5 (32-36) g/dl RDW 12.6 (11.5-14.0) % Plt Count 249 (150-450) K/mm3 MPV 9.9 H (6-9.5) fl Gran % 66.3 H (36.0-66.0) % Lymphocytes % 26.2 (24.0-44.0) % Monocytes % 6.5 (0.0-12.0) % Eosinophils % 0.8 (0.00-5.0) % Basophils % 0.2 (0.0-0.4) % Basophils # 0.03 (0-0.4) Sodium 137 (136-145) mEq/L Potassium 3.6 (3.5-5.1) mEq/L Chloride 102 (98-107) mEq/L Carbon Dioxide 24.2 (21-32) mEq/L Anion Gap 14.7 (5-15) MEQ/L BUN 8 L (9-20) mg/dL Creatinine 0.67 (0.55-1.30) mg/dl Estimated GFR > 60 ML/MIN Glucose 90 (70-110) MG/DL Calcium 9.3 (8.5-10.1) mg/dL Total Bilirubin 0.30 (0.2-1.0) mg/dL AST 15 (15-37) U/L ALT 14 (12-78) U/L Alkaline Phosphatase 63 (46-116) U/L Serum Total Protein 7.2 (6.4-8.2) gm/dL Albumin 3.6 (3.4-5.0) g/dL Ur Collection Type CATH Urine Color YELLOW (YELLOW) Urine Appearance SLIGHTLY CLOUDY (CLEAR) Urine pH 8.0 (5-6) Ur Specific [place] 1.015 (1.005-1.025) Urine Protein NEGATIVE (Negative) Urine Ketones NEGATIVE (NEGATIVE) Urine Blood TRACE NON-HEM (0-5) [place]/ul Urine Nitrite NEGATIVE (NEGATIVE) Urine Bilirubin NEGATIVE (NEGATIVE) Urine Urobilinogen NORMAL (0-1) mg/dL Ur Leukocyte Esterase TRACE (NEGATIVE) Urine Microscopic RBC 0-2 (0-2) /HPF Urine Microscopic WBC 2-5 (0-5) /HPF Ur Epithelial Cells MODERATE (FEW) /HPF Amorphous Crystals MODERATE (NEGATIVE) /HPF Urine Bacteria FEW (NEGATIVE) /HPF Urine Culture Reflexed YES (NO) Urine Glucose NEGATIVE (NEGATIVE) mg/dL Specimen Received 02-07-17 1900 - Progress Progress Note: 02/07/17 19:23 Pt was given 1 L IVF and IM phenergan. She feels some better. LAbs reassuring. Will release to use supp instead. Instr given. Counseled pt/family regarding: lab results, diagnosis, need for follow-up - Departure Time of Disposition: 19:23 Departure Disposition: Home Clinical Impression: Crohn disease, Vomiting, 10 weeks gestation of Condition: Stable Critical Care Time: No Referrals: PENNY SOL [Primary Care Provider] - Instructions: -- Discomforts and Remedies, Vomiting -- Adult Additional Instructions: Rx phenergan suppository to use if needed for nausea instead of pills. Sip fluids. Follow up with Dr Sol next week. No driving and stay with family. Return for problems or concerns. Prescriptions: Promethazine HCl 25 mg Supp [Phenergan 25 mg Supp] 0.5 - [address] Q6HPRN PRN #10 supp.rect PRN Reason: Nausea/Vomiting
[2017-02-07 18:44] LABS: BASOPHIL % 0.2 % (0.0-0.4); Eosinophil % 0.8 % (0.00-5.0); Granulocytes % 66.3 % (36.0-66.0); Lymphocytes % 26.2 % (24.0-44.0); Mean Cell Volume 93.2 fl (78-100); Mean Corpuscular Hemoglobin 32.2 pg (26-32); Mean Platelet Volume 9.9 fl (6-9.5); Monocytes % 6.5 % (0.0-12.0); Platelet Count 249 K/mm3 (150-450); Red Blood Count 4.13 M/mm3 (4.1-5.4); Red Cell Distribution Width 12.6 % (11.5-14.0); White Blood Count 12.4 K/mm3 (4.0-10.5)
[2017-02-07] MEDS ORDERED: Phenergan 25 MG INJ ONE (18:46)
[2017-02-07 19:09] LABS: ALBUMIN 3.6 g/dL (3.4-5.0); ALKALINE PHOSPHATASE 63 U/L (46-116); ANION GAP 14.7 MEQ/L (5-15); BLOOD UREA NITROGEN 8 mg/dL (9-20); CHLORIDE 102 mEq/L (98-107); Carbon Dioxide 24.2 mEq/L (21-32); Glucose 90 MG/DL (70-110); Potassium 3.6 mEq/L (3.5-5.1); SGOT/AST 15 U/L (15-37); SGPT/ALT 14 U/L (12-78); SODIUM 137 mEq/L (136-145); Total Protein 7.2 gm/dL (6.4-8.2)
[2017-02-07 19:09] LABS: Collection Type CATH
[2017-02-07 19:10] LABS: Bilirubin NEGATIVE (NEGATIVE); Blood TRACE NON-HEM Ery/ul (0-5); COMPLETE URINE MICROSCOPIC? YES; Epithelial Cells MODERATE /HPF (FEW); Glucose NEGATIVE (NEGATIVE); Leukocyte Esterase TRACE (NEGATIVE)
[2017-02-07 19:11] LABS: ADD URINE CULTURE? YES (NO); Bacteria FEW /HPF (NEGATIVE)
[2017-02-07 19:27] VITALS: BP 125/80; PULSE 80
== END 2017-02-07 19:36 | disposition home or self-care (01) ==
LOC: ED 18:07
DX: O99.611 Diseases of the digestive system complicating pregnancy, first trimester (principal); K50.90 Crohn's disease, unspecified, without complications; Z3A.10 10 weeks gestation of pregnancy
CPT/HCPCS: 36000; 36415; 80053; 81000; 85025; 87086; 96360; 96372; 99284; J2550; P9612

== ENCOUNTER 2017-02-13 13:03 | Emergency (ER) | payer OTHER ==
[2017-02-13 13:18] VITALS: O2SAT 98
[2017-02-13] MEDS ORDERED: Lactated Ringers 1,000 ML IV ONE ×2 (13:24→13:59)
[2017-02-13] MEDS ORDERED: Phenergan 25 MG INJ IM ONE (13:24)
--- NOTE | 2017-02-13 13:28 | ERPHSYRPT ---
- History of Present Illness Time Seen by Provider: 02/13/17 13:15 Source: patient Patient Subjective Stated Complaint: pt has multi cos today, co sob and vomiting since last night, vomited x4. has not taking phenergan. cough. Triage Nursing Assessment: pt alert, resp easy, skin w/d,pink. abd soft, pt is 11 weeks Physician History: CC: vomiting Hx: 21 y/o about 11 weeks . She has hx of crohns. She has daily vomiting. Cannot keep anything down. Started diclegis but could not keep it down. Had echo today for presyncope, results pending. No chest or abd pain. Decreased urination. No swelling. No fever or chills. Allergies/Adverse Reactions: adhesive tape Allergy (Intermediate, Verified 02/13/17 13:12) Blisters havasupai Allergy (Verified 02/13/17 13:12) paroxetine HCl [From Paxil] Adverse Reaction (Verified 02/13/17 13:12) Nausea Home Medications: Fluticasone Propionate [Flonase NASAL] 16 gm NS DAILY 05/29/16 [History] Ranitidine HCl [Zantac] 150 mg PO DAILY PRN PRN 07/02/16 [History] Vits W-Ca,Fe,FA(<1Mg) [] 1 each PO DAILY 02/07/17 [History] Doxylamine Succinate/Vit B6 [Diclegis Dr 10-10 mg Tablet] 1 ea BID 02/13/17 [ History] Hx Tetanus, Diphtheria Vaccination/Date Given: Yes Hx Influenza Vaccination/Date Given: No Hx Pneumococcal Vaccination/Date Given: No - Review of Systems Constitutional: Malaise, No Fever, No Chills Eyes: No Symptoms Ears, Nose, & Throat: No Symptoms Respiratory: Dyspnea, No Cough Cardiac: No Chest Pain Abdominal/Gastrointestinal: Nausea, Vomiting, No Abdominal Pain, No Diarrhea Genitourinary Symptoms: , No Dysuria, No Vaginal Bleeding Musculoskeletal: No Back Pain Skin: No Rash Neurological: No Headache All Other Systems: Reviewed and Negative - Past Medical History Pertinent Past Medical History: Yes Neurological History: Migraines ENT History: No Pertinent History Cardiac History: No Pertinent History Respiratory History: Asthma Endocrine Medical History: No Pertinent History Musculoskeletal History: No Pertinent History GI Medical History: Crohns Disease, GERD, Gallbladder Disease, Irritable Bowel History: No Pertinent History Psycho-Social History: Depression Female Reproductive Disorders: Other Other Medical History: Reports Crohns; cysts on ovaries - Past Surgical History Past Surgical History: Yes Neuro Surgical History: No Pertinent History Cardiac: No Pertinent History Respiratory: No Pertinent History Gastrointestinal: Cholecystectomy Genitourinary: Other Musculoskeletal: Orthopedic Surgery Female Surgical History: No Pertinent History Other Surgical History: right rotator cuff repair. Ear tubes bilat,ovarian cyst 2016. ovarian cyst removal jun 2016. colonscopy jun 2016 - Social History Smoking Status: Never smoker Exposure to second hand smoke: Yes Alcohol Use: None Drug Use: none Patient Lives Alone: No Significant Family History: no pertinent family hx - Female History Hx Last Menstrual Period: november Hx Now: (UNKNOWN) Expected Date of Delivery: 09/02/17 - Nursing Vital Signs Nursing Vital Signs: Initial Vital Signs Temperature 98.9 F 02/13/17 13:13 Pulse Rate 99 H 02/13/17 13:13 Respiratory Rate 18 02/13/17 13:13 Blood Pressure 128/78 02/13/17 13:13 O2 Sat by Pulse Oximetry 98 02/13/17 13:13 Pain Scale Pain Intensity 5 - Physical Exam General Appearance: alert Eye Exam: PERRL/EOMI Ears, Nose, Throat Exam: normal ENT inspection, moist mucous membranes Neck Exam: normal inspection, non-tender, supple Respiratory Exam: normal breath sounds Cardiovascular Exam: regular rate/rhythm, No murmur Gastrointestinal/Abdomen Exam: soft, No tenderness, No distention Extremity Exam: normal inspection, normal range of motion, No calf tenderness, No pedal edema Neurologic Exam: alert, oriented x 3, cooperative, sensation nml, No motor deficits Skin Exam: warm, dry, No rash SpO2 Interpretation: normal SpO2: 98 Oxygen Delivery: Room Air - Course Nursing assessment & vital signs reviewed: Yes Ordered Tests: Active Orders 24 hr Category Date Time Status Clean Catch Urine Specimen STAT Care 02/13/17 13:24 Active Heart Tones-ED STAT Care 02/13/17 13:24 Active IV Insertion STAT Care 02/13/17 13:24 Active CBC W DIFF Stat Lab 02/13/17 13:40 Completed CMP Stat Lab 02/13/17 13:40 Completed CULTURE,URINE Stat Lab 02/13/17 13:30 Received Manual Differential NC Stat Lab 02/13/17 13:40 Completed UA W/ MICROSCOPIC Stat Lab 02/13/17 13:30 Completed Medication Summary Discontinued Medications Generic Name Dose Route Start Last Admin Trade Name Dimple PRN Reason Stop Dose Admin Lactated Ringer's 1,000 mls @ 999 mls/hr 02/13/17 13:24 02/13/17 14:01 Lactated Ringers IV 02/13/17 14:24 999 mls/hr .Q1H1M ONE Administration Lactated Ringer's Confirm 02/13/17 13:59 Lactated Ringers Administered 02/13/17 14:00 Dose 1,000 mls @ ud IV .STK-MED ONE Promethazine HCl 12.5 mg 02/13/17 13:24 02/13/17 14:00 Phenergan 25 Mg Inj IM 02/13/17 13:25 12.5 mg STAT ONE Administration Promethazine HCl Confirm 02/13/17 13:59 Phenergan 25 Mg Inj Administered 02/13/17 14:00 Dose 25 mg .ROUTE .STK-MED ONE Lab/Rad Data: Laboratory Result Diagrams 02/13/17 13:40 02/13/17 13:40 Laboratory Results 02/13/17 02/13/17 02/13/17 Range/Units 13:40 13:40 13:30 WBC 14.1 H (4.0-10.5) K/mm3 RBC 4.33 (4.1-5.4) M/mm3 Hgb 13.9 (12.0-16.0) gm/dl Hct 39.9 (35-47) % MCV 92.1 (78-100) fl MCH 32.1 H (26-32) pg MCHC 34.8 (32-36) g/dl RDW 12.8 (11.5-14.0) % Plt Count 228 (150-450) K/mm3 MPV 9.5 (6-9.5) fl Segmented Neutrophils 76 H (36.0-66.0) % Lymphocytes (Manual) 24 (24-44) % Differential Comment ABNORMAL Platelet Estimate NORMAL (NORMAL) Poikilocytosis 1+ Anisocytosis 1+ Sodium 137 (136-145) mEq/L Potassium 3.5 (3.5-5.1) mEq/L Chloride 102 (98-107) mEq/L Carbon Dioxide 23.0 (21-32) mEq/L Anion Gap 15.7 H (5-15) MEQ/L BUN 9 (9-20) mg/dL Creatinine 0.71 (0.55-1.30) mg/dl Estimated GFR > 60 ML/MIN Glucose 113 H (70-110) MG/DL Calcium 10.1 (8.5-10.1) mg/dL Total Bilirubin 0.30 (0.2-1.0) mg/dL AST 14 L (15-37) U/L ALT 15 (12-78) U/L Alkaline Phosphatase 69 (46-116) U/L Serum Total Protein 7.3 (6.4-8.2) gm/dL Albumin 3.4 (3.4-5.0) g/dL Ur Collection Type VOID Urine Color YELLOW (YELLOW) Urine Appearance CLOUDY (CLEAR) Urine pH 7.0 (5-6) Ur Specific [place] 1.015 (1.005-1.025) Urine Protein TRACE (Negative) Urine Ketones TRACE (NEGATIVE) Urine Blood 50 (0-5) [place]/ul Urine Nitrite NEGATIVE (NEGATIVE) Urine Bilirubin NEGATIVE (NEGATIVE) Urine Urobilinogen 1 (0-1) mg/dL Ur Leukocyte Esterase 2+ (NEGATIVE) Urine Microscopic RBC 2-5 (0-2) /HPF Urine Microscopic WBC 5-10 (0-5) /HPF Ur Epithelial Cells MANY (FEW) /HPF Urine Bacteria MANY (NEGATIVE) /HPF Urine Culture Reflexed YES (NO) Urine Glucose NEGATIVE (NEGATIVE) mg/dL Specimen Received 02/13/17 1303 - Progress Progress Note: 02/13/17 14:31 Lungs are clear. She reports some cough. No urinary problem. No fever. IVF given. Phenergan given which she has used in the past. Called Dr Sol and will release with alb MDI. Counseled pt/family regarding: lab results, diagnosis, need for follow-up - Departure Time of Disposition: 14:32 Departure Disposition: Home Clinical Impression: 11 weeks gestation of , Vomiting, Cough Condition: Stable Critical Care Time: No Referrals: PENNY SOL [Primary Care Provider] - Instructions: Hyperemesis Gravidarum, -- Discomforts and Remedies Additional Instructions: [place] diet and sip fluids. Rx albuterol MDI. Follow up with Dr Sol. Prescriptions: Albuterol Sulfate [Albuterol Sulfate Hfa] 2 puff IH Q4-6HPRN PRN #1 [email or web address] PRN Reason: cough or wheeze
[2017-02-13 13:49] LABS: Mean Cell Volume 92.1 fl (78-100); Mean Corpuscular Hemoglobin 32.1 pg (26-32); Mean Platelet Volume 9.5 fl (6-9.5); Platelet Count 228 K/mm3 (150-450); Red Blood Count 4.33 M/mm3 (4.1-5.4); Red Cell Distribution Width 12.8 % (11.5-14.0); White Blood Count 14.1 K/mm3 (4.0-10.5)
[2017-02-13 13:51] LABS: Collection Type VOID
[2017-02-13 13:52] LABS: Blood 50 Ery/ul (0-5); Glucose NEGATIVE (NEGATIVE); Leukocyte Esterase 2+ (NEGATIVE)
[2017-02-13 13:53] LABS: Bilirubin NEGATIVE (NEGATIVE)
[2017-02-13 13:54] LABS: COMPLETE URINE MICROSCOPIC? YES
[2017-02-13 13:59] LABS: Bacteria MANY /HPF (NEGATIVE); Epithelial Cells MANY /HPF (FEW)
[2017-02-13] MEDS ORDERED: Phenergan 25 MG INJ ONE (13:59)
[2017-02-13 14:00] LABS: ADD URINE CULTURE? YES (NO)
[2017-02-13 14:15] LABS: ALBUMIN 3.4 g/dL (3.4-5.0); ALKALINE PHOSPHATASE 69 U/L (46-116); ANION GAP 15.7 MEQ/L (5-15); BLOOD UREA NITROGEN 9 mg/dL (9-20); CHLORIDE 102 mEq/L (98-107); Glucose 113 MG/DL (70-110); Potassium 3.5 mEq/L (3.5-5.1); SGOT/AST 14 U/L (15-37); SGPT/ALT 15 U/L (12-78); SODIUM 137 mEq/L (136-145); Total Protein 7.3 gm/dL (6.4-8.2)
[2017-02-13 14:24] LABS: Total Cells Counted 100
[2017-02-13 14:26] LABS: ANISOCYTOSIS 1+; Platelet Estimate NORMAL (NORMAL); Poikilocytosis 1+
[2017-02-13 15:03] VITALS: BP 135/64; PULSE 70
== END 2017-02-13 15:02 | disposition home or self-care (01) ==
LOC: ED 13:03
DX: O21.8 Other vomiting complicating pregnancy (principal); Z3A.11 11 weeks gestation of pregnancy; R05 Cough; K50.90 Crohn's disease, unspecified, without complications
CPT/HCPCS: 36000; 36415; 80053; 81000; 85025; 87086; 96360; 96372; 99284; J2550

== ENCOUNTER 2017-04-18 21:50 | Observation (INO) | payer OTHER ==
[2017-04-18 22:30] LABS: Bilirubin NEGATIVE (NEGATIVE); Blood NEGATIVE Ery/ul (0-5); COMPLETE URINE MICROSCOPIC? YES; Collection Type CLEAN CATCH; Glucose NEGATIVE (NEGATIVE); Leukocyte Esterase TRACE (NEGATIVE)
[2017-04-18 22:31] LABS: Bacteria FEW /HPF (NEGATIVE); Epithelial Cells FEW /HPF (FEW); Mucus SLIGHT /HPF (NEGATIVE); WBC 0-2 /HPF (0-5)
[2017-04-18] MEDS: TYLENOL EXTRA STRENGTH 500 MG PO PRN (23:51)
[2017-04-19] MEDS: TYLENOL EXTRA STRENGTH 500 MG PO PRN ×2 (09:02→12:57)
[2017-04-19 20:06] VITALS: BP 91/56; PULSE 78
--- NOTE | 2017-04-19 21:05 | XRAY ---
Indication: Left lower quadrant abdominal pain. Evaluate well-being. Two-dimensional OB ultrasound performed. Comparison: January 02, 2017. Again there is a single viable intrauterine currently in breech presentation. Normal four-chamber heart with heart rate 143 BPM. Visualized stomach and bladder are unremarkable. Placenta is fundal in location without abnormal retroplacental fluid. BPD measures 5.08 cm corresponding to 21 weeks 3 days. HC measures 19.28 cm corresponding to 21 weeks 4 days. AC measures 16.43 cm corresponding to 21 weeks 4 days. FL measures 3.39 cm corresponding to 20 weeks 5 days. REJI is 11.8 cm. Impression: Again single viable intrauterine with mean gestational age 21 weeks 2 days. Normal progression of . Nothing acute. Comment: Preliminary report was given.
== END 2017-04-19 20:13 | disposition home or self-care (01) ==
LOC: OB 21:50
PROVIDERS: ADMIT Family Medicine; ATTEND Family Medicine
DX: Z34.82 Encounter for supervision of other normal pregnancy, second trimester (principal)
CPT/HCPCS: 76805; 80307; 81000; G0378; A9270-GY

== ENCOUNTER 2017-05-01 15:12 | Observation (INO) | payer OTHER ==
[2017-05-01] MEDS ORDERED: Zofran 4 MG/2 ML VIAL IV PRN (16:23)
[2017-05-01 16:27] LABS: Appearance CLEAR (CLEAR); Bilirubin SMALL (NEGATIVE); Glucose NEGATIVE (NEGATIVE); Ketones MODERATE (NEGATIVE); Leukocyte Esterase 1+ (NEGATIVE); Nitrite NEGATIVE (NEGATIVE); Protein,Urine Dip TRACE (Negative); Urobilinogen NORMAL mg/dL (0-1)
[2017-05-01] MEDS ORDERED: D5W/0.45NS W/ 20mEq KCl 1000 ML 1,000 ML IV SCH ×2 (16:30)
[2017-05-01 16:33] LABS: Barbiturate,Urine NEG. (NEGATIVE); Benzodiazepine,Urine NEG. (NEGATIVE); Cocaine,Urine NEG. (NEGATIVE); Methadone,Urine NEG. (NEGATIVE); Opiate,Urine NEG. (NEGATIVE); PCP,Urine NEG. (NEGATIVE); THC,Urine NEG. (NEGATIVE)
[2017-05-01 16:41] LABS: Amphetamine,Urine NEGATIVE (NEGATIVE)
[2017-05-01 16:48] LABS: Bacteria FEW /HPF (NEGATIVE); Epithelial Cells FEW /HPF (FEW); Mucus SLIGHT /HPF (NEGATIVE)
[2017-05-01 17:23] LABS: BASOPHIL % 0.1 % (0.0-0.4); Basophil (Absolute #) 0.01 (0-0.4); Eosinophil % 0.2 % (0.00-5.0); Eosinophil (Absolute #) 0.02 (0-0.5); Granulocyte Absolute (ANC) 10.28 (1.4-6.9); Granulocytes % 86.1 % (36.0-66.0); Hematocrit 38.9 % (35-47); Lymphocyte (Absolute #) 0.98 (1.0-4.6); Lymphocytes % 8.2 % (24.0-44.0); Mean Cell Volume 96.3 fl (78-100); Mean Corpuscular Hgb Concent. 33.4 g/dl (32-36); Mean Platelet Volume 10.2 fl (6-9.5); Monocyte (Absolute #) 0.65 (0.0-1.3); Monocytes % 5.4 % (0.0-12.0); Platelet Count 240 K/mm3 (150-450); Red Blood Count 4.04 M/mm3 (4.1-5.4); Red Cell Distribution Width 13.2 % (11.5-14.0); White Blood Count 11.9 K/mm3 (4.0-10.5)
[2017-05-01 17:33] LABS: INFLUENZA A NEGATIVE (NEGATIVE); INFLUENZA B NEGATIVE (NEGATIVE); RESPIRATORY SYNCTIAL VIRUS NEGATIVE (Negative)
[2017-05-01 17:34] LABS: Mean Corpuscular Hemoglobin 32.1 pg (26-32)
[2017-05-01 17:55] LABS: ALBUMIN 2.7 g/dL (3.4-5.0); ALKALINE PHOSPHATASE 102 U/L (46-116); ANION GAP 15.8 MEQ/L (5-15); BLOOD UREA NITROGEN 9 mg/dL (9-20); CHLORIDE 104 mEq/L (98-107); Calcium 8.7 mg/dL (8.5-10.1); Carbon Dioxide 22.3 mEq/L (21-32); Creatinine 1 0.76 mg/dl (0.55-1.30); EST GLOMERULAR FILTRATION RATE > 60 ML/MIN; Glucose 71 MG/DL (70-110); Potassium 4.1 mEq/L (3.5-5.1); SGOT/AST 34 U/L (15-37); SGPT/ALT 14 U/L (12-78); SODIUM 138 mEq/L (136-145); Total Protein 6.9 gm/dL (6.4-8.2)
[2017-05-01 20:54] VITALS: BP 91/55; PULSE 99
== END 2017-05-01 20:50 | disposition home or self-care (01) ==
LOC: MED SURG 15:12
PROVIDERS: ADMIT Family Medicine; ATTEND Family Medicine
DX: Z34.82 Encounter for supervision of other normal pregnancy, second trimester (principal)
CPT/HCPCS: 36415; 80053; 80307; 81000; 85025; 87280; 87400; G0378

== ENCOUNTER 2017-06-05 12:55 | Observation (INO) | payer MEDICAID ==
--- NOTE | 2017-06-05 13:49 | XRAY ---
Indication: Short of breath, palpitations, and flu symptoms. Comparison: September 12, 2016. Single AP chest again demonstrates normal heart, lungs, and bony thorax.
[2017-06-05 14:17] LABS: INFLUENZA A NEGATIVE (NEGATIVE); INFLUENZA B NEGATIVE (NEGATIVE); RESPIRATORY SYNCTIAL VIRUS NEGATIVE (Negative)
--- NOTE | 2017-06-05 14:45 | XRAY ---
Indication: Size and dates. Two-dimensional OB ultrasound performed. Comparison: April 19, 2017. Again there is a single viable intrauterine now in cephalic presentation. Normal four-chamber heart with heart rate 138 BPM. Visualized spine, stomach, and bladder are unremarkable. Placenta is posterior without abnormal retroplacental fluid. BPD measures 6.77 cm corresponding to 27 weeks 2 days. HC measures 24.59 cm corresponding to 26 weeks 5 days. AC measures 18.96 cm corresponding to 23 weeks 5 days. FL measures 4.70 cm corresponding to 25 weeks 5 days. REJI is 9.7 cm. Impression: Again single viable intrauterine with mean gestational age 25 weeks 6 days. There has been progression of the . Fetus now measures 15 days smaller since last exam.
[2017-06-05 15:07] LABS: Hematocrit 38.3 % (35-47); Hemoglobin 13.1 gm/dl (12.0-16.0); Mean Cell Volume 93.2 fl (78-100); Mean Corpuscular Hemoglobin 31.9 pg (26-32); Mean Corpuscular Hgb Concent. 34.2 g/dl (32-36); Mean Platelet Volume 10.6 fl (6-9.5); Platelet Count 191 K/mm3 (150-450); Red Blood Count 4.11 M/mm3 (4.1-5.4); Red Cell Distribution Width 12.8 % (11.5-14.0); White Blood Count 15.7 K/mm3 (4.0-10.5)
[2017-06-05] MEDS: Lactated Ringers 1,000 ML IV SCH ×2 (15:33→23:27)
[2017-06-05 16:17] LABS: ALBUMIN 1.9 g/dL (3.4-5.0); ALKALINE PHOSPHATASE 106 U/L (46-116); BLOOD UREA NITROGEN 15 mg/dL (9-20); CHLORIDE 109 mEq/L (98-107); Calcium 8.4 mg/dL (8.5-10.1); Carbon Dioxide 20.1 mEq/L (21-32); Creatinine 1 0.98 mg/dl (0.55-1.30); EST GLOMERULAR FILTRATION RATE > 60 ML/MIN; Glucose 79 MG/DL (70-110); SGOT/AST 24 U/L (15-37); SGPT/ALT 11 U/L (12-78); SODIUM 140 mEq/L (136-145); Total Protein 5.8 gm/dL (6.4-8.2); Uric Acid 6.8 mg/dL (2.6-6.0)
[2017-06-05 16:44] LABS: BAND 1 % (0.0-2.0); Lymphocytes 18 % (24-44); Neutrophils 75 % (36.0-66.0); Total Cells Counted 100
[2017-06-05 16:47] LABS: Eosinophil 3 % (0.00-3.0); Monocyte 3 % (0.0-12.0); Platelet Estimate NORMAL (NORMAL)
[2017-06-05] MEDS: TYLENOL 325 MG PO PRN (17:47)
--- NOTE | 2017-06-05 19:08 | PCM.HP ---
History of Present Illness - Chief Complaint Chief Complaint: OB CHECK History of Present Illness: is a 21 year old female at 28 wks here for CP, SOB and increased edema. The edema has been increasing for some time but worse over th epast few days. Noticeable in her face today, as well as noted by pt in hands and feet. She had some elevated BP at home to 140s systolic and 100s diastolic. She had 300 protein in her urine in th eoffice. She was sent over for further evaluation. The SOB started suddenly at 6 am this morning. She started having CP once she arrived in the LR. She says the pain is a little better now after tylenol. She c/o dyspnea with little exertion (ie, moving around in the bed). Pt has had one BP over 160 systolic since admission. Pt's OB u/s was wnl, although with growth 15d behind. Initial labs - CMP, CBC, uric acid - unconcerning aside from elevated WBC to 15.7 with left shift and mild decrease in CO2. Pt has Crohn's disease and has chronic GI bleeding. This morning she noted quite a bit of bleeding from her mouth. Of noted, 4-5 d ago she had vomiting and diarrhea. - Review of Systems Constitutional: Weakness, No Fever Respiratory: Short Of Breath Cardiac: Chest Pain, Palpitations Abdominal/Gastrointestinal: Nausea Musculoskeletal: Back Pain Medications & Allergies Home Medications: Home Medication List Vits W-Ca,Fe,FA(<1Mg) [] 1 each PO DAILY 02/07/17 [History Confirmed 06/05/17] Butalb/Acetaminophen/Caffeine [Odcojf-Jzwgmiut-Wech 50-325-40] 1 each PO Q8HPRN PRN 06/05/17 [History Confirmed 06/05/17] Omeprazole [Prilosec] 40 mg PO DAILY 06/05/17 [History Confirmed 06/05/17] Allergies/Adverse Reactions: Allergies Allergy/AdvReac Type Severity Reaction Status Date / Time adhesive tape Allergy Intermediate Blisters Verified 04/18/17 22:59 chinik Allergy Verified 04/18/17 22:59 paroxetine HCl [From Paxil] AdvReac Nausea Verified 04/18/17 22:59 - Past Medical History Past Medical History: Yes Neurological History: Migraines ENT History: No Pertinent History Cardiac History: No Pertinent History Respiratory History: Asthma Endocrine Medical History: No Pertinent History Musculoskelatal History: No Pertinent History GI Medical History: Crohns Disease, GERD, Gallbladder Disease, Irritable Bowel History: No Pertinent History Pyscho-Social History: Depression Reproductive Disorders: Other Comment: Reports Crohns; cysts on ovaries - Female History Are you now?: Yes - Past Surgical History Past Surgical History: Yes Neuro Surgical History: No Pertinent History Cardiac History: No Pertinent History Respiratory Surgery: No Pertinent History GI Surgical History: Cholecystectomy Genitourinary Surgical Hx: Other Musculskeletal Surgical Hx: Orthopedic Surgery Female Surgical History: No Pertinent History Other Surgical History: right rotator cuff repair. Ear tubes bilat,ovarian cyst 2017. ovarian cyst removal jun 2016. colonscopy jun 2016 - Social History Smoking Status: Former smoker How long have you smoked: 1 month Exposure to second hand smoke: Yes Alcohol: None Drug Use: none Significant Family History: no pertinent family hx - Physical Exam Vital Signs: Vital Signs - 24 hr Temp Pulse Resp BP BP 06/05/17 17:30 97.9 F 79 22 162/93 06/05/17 14:34 66 18 153/82 General Appearance: no apparent distress, alert, anxiety Neurologic Exam: oriented x 3, cooperative Ears, Nose, Throat Exam: other (face with generalized edema) Respiratory Exam: normal breath sounds, lungs clear, other (mild ttp over central chest. no crepitus. no erythema/lesions.), No crackles/rales, No rhonchi , No wheezing Cardiovascular Exam: regular rate/rhythm, normal heart sounds, No murmur Gastrointestinal/Abdomen Exam: soft, other (gravid) Extremity Exam: normal inspection, other (pt currently having U/S LE - in office reflexes 2+) Skin Exam: normal color, warm, dry Results - Labs Lab/Micro Results: Lab Results-Last 24 Hours 06/05/17 06/05/17 06/05/17 Range/Units 13:30 14:59 14:59 WBC 15.7 H (4.0-10.5) K/mm3 RBC 4.11 (4.1-5.4) M/mm3 Hgb 13.1 (12.0-16.0) gm/dl Hct 38.3 (35-47) % MCV 93.2 (78-100) fl MCH 31.9 (26-32) pg MCHC 34.2 (32-36) g/dl RDW 12.8 (11.5-14.0) % Plt Count 191 (150-450) K/mm3 MPV 10.6 H (6-9.5) fl Segmented Neutrophils 75 H (36.0-66.0) % Band Neutrophils 1 (0.0-2.0) % Lymphocytes (Manual) 18 L (24-44) % Monocytes (Manual) 3 (0.0-12.0) % Eosinophils (Manual) 3 (0.00-3.0) % Differential Comment NORMAL Platelet Estimate NORMAL (NORMAL) Sodium 140 (136-145) mEq/L Potassium 4.0 (3.5-5.1) mEq/L Chloride 109 H (98-107) mEq/L Carbon Dioxide 20.1 L (21-32) mEq/L Anion Gap 15.0 (5-15) MEQ/L BUN 15 (9-20) mg/dL Creatinine 0.98 (0.55-1.30) mg/dl Estimated GFR > 60 ML/MIN Glucose 79 (70-110) MG/DL Uric Acid 6.8 H (2.6-6.0) mg/dL Calcium 8.4 L (8.5-10.1) mg/dL Total Bilirubin 0.10 L (0.2-1.0) mg/dL AST 24 (15-37) U/L ALT 11 L (12-78) U/L Alkaline Phosphatase 106 (46-116) U/L Serum Total Protein 5.8 L (6.4-8.2) gm/dL Albumin 1.9 L (3.4-5.0) g/dL Influenza Type A Ag NEGATIVE (NEGATIVE) Influenza Type B Ag NEGATIVE (NEGATIVE) RSV (PCR) NEGATIVE (Negative) - Radiology Impressions Radiology Exams & Impressions: Radiology Procedures Category Date Time Status CHEST 1 VIEW (PORTABLE) Urgent Exams 06/05/17 13:30 Completed OB >14 WKS 1st GESTATION [US] Urgent Exams 06/05/17 13:15 Completed VENOUS BILATERAL EXTREMITY [US] Stat Exams 06/05/17 18:05 Ordered Assessment/Plan (1) 28 weeks gestation of Current Visit: Yes Status: Acute Code(s): Z3A.28 - 28 WEEKS GESTATION OF (2) Dyspnea Current Visit: Yes Status: Acute Qualifiers: Dyspnea type: shortness of breath Qualified Code(s): R06.02 - Shortness of breath; R06.00 - Dyspnea, unspecified; R06.01 - Orthopnea Assessment & Plan: Concern for PE with sudden onset, with chest pain. Discussed wiht radiology and pharmacy. While typing this note, pt became more SOB and increased CP - on O2 now, stat repeat CXR (portable) ordered, ABG ordered, and heparin drip ordered. Would like to avoid over anticoagulation as she had some bleeding this morning, but acutely need to anti coagulate while further evaluating. Code(s): R06.00 - DYSPNEA, UNSPECIFIED (3) Chest pain Current Visit: Yes Status: Acute Qualifiers: Chest pain type: chest pain on breathing Qualified Code(s): R07.1 - Chest pain on breathing; R07.81 - Pleurodynia Code(s): R07.9 - CHEST PAIN, UNSPECIFIED (4) Elevated blood pressure affecting in third trimester, antepartum Current Visit: Yes Status: Acute Assessment & Plan: 24 hour urine protein pending. Code(s): O16.3 - UNSPECIFIED MATERNAL HYPERTENSION, THIRD TRIMESTER (5) Edema Current Visit: Yes Status: Acute Qualifiers: Trimester: third trimester Assessment & Plan: increased Code(s): R60.9 - EDEMA, UNSPECIFIED (6) Crohn disease Current Visit: No Status: Chronic Qualifiers: Gastrointestinal tract location: unspecified location Digestive disease complication type: unspecified complication Qualified Code(s): K50.919 - Crohn 's disease, unspecified, with unspecified complications Assessment & Plan: has some chronic bleeding from Crohn's Code(s): K50.90 - CROHN'S DISEASE, UNSPECIFIED, WITHOUT COMPLICATIONS
[2017-06-05] MEDS ORDERED: Heparin 25,000 units/D5W 250ML PREMIX 25,000 UNITS/250 ML BAG IV SCH (19:12)
[2017-06-05] MEDS ORDERED: HEPARIN 1000 UNIT/ML IV PRN (19:12)
[2017-06-05] MEDS ORDERED: Heparin 5000 UNITS/0.5 ML (HIGH RISK MED) IV ONE (19:12)
[2017-06-05] MEDS ORDERED: MORPHINE SULFATE 4 MG INJ IV ONE (19:38)
[2017-06-05 19:39] LABS: A-aADO2 200; ABG HEMOGLOBIN 12.5; ABG POTASSIUM 3.3 (3.5-5.1); ABG SITE LEFT RADIAL; ALLEN TEST OK? YES; ARTERIAL BLD GAS O2 SATURATION 100.5 % (95-100); ARTERIAL BLOOD GAS BASE EXCESS -1.3 (-2.0-2.0); ARTERIAL BLOOD GAS FIO2 60 %; ARTERIAL BLOOD GAS PCO2 23 mmHg (35-45); ARTERIAL BLOOD GAS PO2 199 mmHg (75-100); ARTERIAL BLOOD GAS pH 7.54 (7.35-7.45); CARBOXYHEMOGLOBIN 2.1 % THgb (0.0-6.9); HCO3- 19.7 (22-28); HGB O2 SAT 97.8 g/dF (94-100); Methhemoglobin 0.5 % (1.4-1.5)
[2017-06-05] MEDS ORDERED: MORPHINE SULFATE 2 MG INJ ONE (19:41)
[2017-06-05] MEDS ORDERED: DUONEB 0.5-3 MG/3 ml Neb IH ONE (19:53)
[2017-06-05 20:08] LABS: INR 0.86 (0.8-3.0); PTT 34.7 SECONDS (25.3-37.0)
[2017-06-05] MEDS: Phenergan 25 MG INJ IV PRN (23:05)
[2017-06-05] MEDS ORDERED: Trandate 100 MG PO SCH (23:30)
[2017-06-06] MEDS ORDERED: DUONEB 0.5-3 MG/3 ml Neb IH ONE ×3 (04:31→19:45)
[2017-06-06] MEDS: Norco 10/325 MG Tablet PO PRN ×3 (05:40→21:33)
[2017-06-06 06:14] LABS: ANION GAP 13.7 MEQ/L (5-15); BLOOD UREA NITROGEN 12 mg/dL (9-20); CHLORIDE 110 mEq/L (98-107); Calcium 8.6 mg/dL (8.5-10.1); Carbon Dioxide 21.2 mEq/L (21-32); Creatinine 1 0.92 mg/dl (0.55-1.30); EST GLOMERULAR FILTRATION RATE > 60 ML/MIN; Glucose 108 MG/DL (70-110); Potassium 3.5 mEq/L (3.5-5.1); SODIUM 141 mEq/L (136-145)
--- NOTE | 2017-06-06 08:39 | XRAY ---
Indication: Chest pain. Comparison: Taken earlier in the day. Portable chest remains clear. Heart and mediastinal structures within normal limits. No new/acute findings. Impression: Stable nonacute chest.
--- NOTE | 2017-06-06 08:42 | PCM.NOTE ---
Date and Time: 06/06/17836 Subjective Assessment: CT chest ruled out PE. There is 13 cm atelectasis in LLL. Small bilat effusions. She had a coughing attack last night and now has thoracic back pain. variability has been low overnight with a few variable decelerations, one acceleration. Still c/o SOB and chest pain. Cough seems worse since yesterday. - Review of Systems Respiratory: Cough, Short Of Breath Cardiac: Chest Pain Musculoskeletal: Back Pain Objective Exam General Appearance: no apparent distress, alert Neurologic Exam: oriented x 3, cooperative, other (pat reflexes 3+ bilat, 1 beat clonus bilat) Skin Exam: normal color, warm, dry, No rash Ears, Nose, Throat Exam: moist mucous membranes Neck Exam: normal inspection Respiratory Exam: normal breath sounds, lungs clear, No crackles/rales, No rhonchi, No wheezing Cardiovascular Exam: regular rate/rhythm, normal heart sounds, No murmur Extremity Exam: No pedal edema, No swelling Back Exam: normal inspection, other (ttp paraspinal approx T4 bilat) OBJECTIVE DATA Vital Signs: Vital Signs - 24 hr Temp Pulse Resp BP BP Pulse Ox 06/06/17 06:00 97.8 F 80 21 143/104 100 06/06/17 04:30 71 20 96 06/06/17 02:34 98.7 F 72 20 147/99 100 06/05/17 23:30 89 20 157/108 100 06/05/17 23:00 97.6 F 21 160/108 100 06/05/17 21:30 97.8 F 93 H 22 143/85 99 06/05/17 19:53 86 20 98 06/05/17 17:30 97.9 F 79 22 162/93 06/05/17 14:34 66 18 153/82 Oxygen-Last 24 hours Oxygen Flowrate (L/min)-RT 2 Oxygen Flowrate (L/min)-RT 2 Oxygen Flowrate (L/min)-RT 1 Oxygen Flowrate (L/min)-RT 1 Oxygen Flowrate (L/min)-RT 5 Pain Assessment - Last Documented Pain Intensity 3 Pain Scale Used 0-10 Pain Scale Intake and Output: Intake & Output 06/03/17 06/04/17 06/05/17 06/06/17 11:59 11:59 11:59 11:59 Intake Total 660 Output Total 1050 Balance -390 Weight 58.967 kg Lab Results: Lab Results-Last 24 Hours 06/05/17 06/05/17 06/05/17 Range/Units 13:30 14:59 14:59 WBC 15.7 H (4.0-10.5) K/mm3 RBC 4.11 (4.1-5.4) M/mm3 Hgb 13.1 (12.0-16.0) gm/dl Hct 38.3 (35-47) % MCV 93.2 (78-100) fl MCH 31.9 (26-32) pg MCHC 34.2 (32-36) g/dl RDW 12.8 (11.5-14.0) % Plt Count 191 (150-450) K/mm3 MPV 10.6 H (6-9.5) fl Segmented Neutrophils 75 H (36.0-66.0) % Band Neutrophils 1 (0.0-2.0) % Lymphocytes (Manual) 18 L (24-44) % Monocytes (Manual) 3 (0.0-12.0) % Eosinophils (Manual) 3 (0.00-3.0) % Differential Comment NORMAL Platelet Estimate NORMAL (NORMAL) INR (0.8-3.0) APTT (25.3-37.0) SECONDS Puncture Site pCO2 (35-45) mmHg pO2 (75-100) mmHg Base Excess (-2.0-2.0) O2 Saturation (94-100) g/dF ABG pH (7.35-7.45) ABG HCO3 (22-28) ABG O2 Sat (Measured) (95-100) % Syd Test A-a Gradient a/A Ratio Hemoglobin Carboxyhemoglobin (0.0-6.9) % THgb Methemoglobin (1.4-1.5) % Temperature C POC O2 Flow Rate % Sodium 140 (136-145) mEq/L Potassium 4.0 (3.5-5.1) mEq/L Chloride 109 H (98-107) mEq/L Carbon Dioxide 20.1 L (21-32) mEq/L Anion Gap 15.0 (5-15) MEQ/L BUN 15 (9-20) mg/dL Creatinine 0.98 (0.55-1.30) mg/dl Estimated GFR > 60 ML/MIN Glucose 79 (70-110) MG/DL Uric Acid 6.8 H (2.6-6.0) mg/dL Calcium 8.4 L (8.5-10.1) mg/dL Total Bilirubin 0.10 L (0.2-1.0) mg/dL AST 24 (15-37) U/L ALT 11 L (12-78) U/L Alkaline Phosphatase 106 (46-116) U/L Serum Total Protein 5.8 L (6.4-8.2) gm/dL Albumin 1.9 L (3.4-5.0) g/dL Influenza Type A Ag NEGATIVE (NEGATIVE) Influenza Type B Ag NEGATIVE (NEGATIVE) RSV (PCR) NEGATIVE (Negative) 06/05/17 06/05/17 06/06/17 Range/Units 19:16 19:51 05:40 WBC (4.0-10.5) K/mm3 RBC (4.1-5.4) M/mm3 Hgb (12.0-16.0) gm/dl Hct (35-47) % MCV (78-100) fl MCH (26-32) pg MCHC (32-36) g/dl RDW (11.5-14.0) % Plt Count (150-450) K/mm3 MPV (6-9.5) fl Segmented Neutrophils (36.0-66.0) % Band Neutrophils (0.0-2.0) % Lymphocytes (Manual) (24-44) % Monocytes (Manual) (0.0-12.0) % Eosinophils (Manual) (0.00-3.0) % Differential Comment Platelet Estimate (NORMAL) INR 0.86 (0.8-3.0) APTT 34.7 (25.3-37.0) SECONDS Puncture Site LEFT RADIAL pCO2 23 L (35-45) mmHg pO2 199 H* (75-100) mmHg Base Excess -1.3 (-2.0-2.0) O2 Saturation 97.8 (94-100) g/dF ABG pH 7.54 H (7.35-7.45) ABG HCO3 19.7 L (22-28) ABG O2 Sat (Measured) 100.5 H (95-100) % Syd Test YES A-a Gradient 200 a/A Ratio 0.50 Hemoglobin 12.5 Carboxyhemoglobin 2.1 (0.0-6.9) % THgb Methemoglobin 0.5 L (1.4-1.5) % Temperature 37.0 C POC O2 Flow Rate 60 % Sodium 141 (136-145) mEq/L Potassium 3.3 L 3.5 (3.5-5.1) mEq/L Chloride 110 H (98-107) mEq/L Carbon Dioxide 21.2 (21-32) mEq/L Anion Gap 13.7 (5-15) MEQ/L BUN 12 (9-20) mg/dL Creatinine 0.92 (0.55-1.30) mg/dl Estimated GFR > 60 ML/MIN Glucose 108 (70-110) MG/DL Uric Acid (2.6-6.0) mg/dL Calcium 8.6 (8.5-10.1) mg/dL Total Bilirubin (0.2-1.0) mg/dL AST (15-37) U/L ALT (12-78) U/L Alkaline Phosphatase (46-116) U/L Serum Total Protein (6.4-8.2) gm/dL Albumin (3.4-5.0) g/dL Influenza Type A Ag (NEGATIVE) Influenza Type B Ag (NEGATIVE) RSV (PCR) (Negative) Radiology Exams: Radiology Procedures Category Date Time Status CHEST 1 VIEW (PORTABLE) Stat Exams 06/05/17 19:15 Taken CHEST 1 VIEW (PORTABLE) Urgent Exams 06/05/17 13:30 Completed CHEST WITH CONTRAST [CT] Routine Exams 06/05/17 22:37 Taken OB >14 WKS 1st GESTATION [US] Urgent Exams 06/05/17 13:15 Completed VENOUS BILATERAL EXTREMITY [US] Stat Exams 06/05/17 18:05 Taken Assessment/Plan (1) 28 weeks gestation of Current Visit: Yes Status: Acute Assessment & Plan: With minimal variability. U/S yesterday non acute, measuring 15 days small. Will discuss with Dr. Linares today. Code(s): Z3A.28 - 28 WEEKS GESTATION OF (2) Pneumonia Current Visit: Yes Status: Acute Qualifiers: Pneumonia type: due to unspecified organism Laterality: unspecified laterality Lung location: unspecified part of lung Qualified Code(s): J18.9 - Pneumonia, unspecified organism Assessment & Plan: Imaging without infiltrates, but pt with worsening cough, elevated WBC count, atelectasis. Continue nebs. Code(s): J18.9 - PNEUMONIA, UNSPECIFIED ORGANISM (3) Dyspnea Current Visit: Yes Status: Acute Qualifiers: Dyspnea type: shortness of breath Qualified Code(s): R06.02 - Shortness of breath; R06.00 - Dyspnea, unspecified; R06.01 - Orthopnea Assessment & Plan: PE ruled out. May be due to the atelectasis. Code(s): R06.00 - DYSPNEA, UNSPECIFIED (4) Chest pain Current Visit: Yes Status: Acute Qualifiers: Chest pain type: chest pain on breathing Qualified Code(s): R07.1 - Chest pain on breathing; R07.81 - Pleurodynia Code(s): R07.9 - CHEST PAIN, UNSPECIFIED (5) Elevated blood pressure affecting in third trimester, antepartum Current Visit: Yes Status: Acute Assessment & Plan: 24 hr urine protein pending. On labetalol 100mg po BID. Code(s): O16.3 - UNSPECIFIED MATERNAL HYPERTENSION, THIRD TRIMESTER (6) Edema Current Visit: Yes Status: Acute Qualifiers: Trimester: third trimester Assessment & Plan: appears better to me today. Code(s): R60.9 - EDEMA, UNSPECIFIED (7) Crohn disease Current Visit: No Status: Chronic Qualifiers: Gastrointestinal tract location: unspecified location Digestive disease complication type: unspecified complication Qualified Code(s): K50.919 - Crohn 's disease, unspecified, with unspecified complications Code(s): K50.90 - CROHN'S DISEASE, UNSPECIFIED, WITHOUT COMPLICATIONS
--- NOTE | 2017-06-06 08:43 | XRAY ---
Indication: Short of breath. Pulmonary embolus. 25 weeks . Multiple contiguous axial images obtained through the chest using 50 cc Isovue 370 contrast and pulmonary embolus. Abdomen was shielded. Comparison: None There is satisfactory opacification of the pulmonary arteries. No filling defect or pulmonary embolus. Heart is not enlarged. Aorta is normal in course and caliber. No pathologic mediastinal/hilar lymphadenopathy. Examination of lung parenchyma demonstrates small bibasilar pleural effusions and minimal left base dependent atelectasis. No suspicious pulmonary mass or infiltrate. Bony thorax intact. Limited upper abdomen demonstrates 13 cm splenomegaly and cholecystectomy clips. Impression: 1. Negative pulmonary embolus. 2. Small bibasilar effusions and left base atelectasis. 3. Splenomegaly. CT DI 12.65
--- NOTE | 2017-06-06 08:44 | XRAY ---
Indication: Chest discomfort. Possible PE. Two-dimensional sonogram and color Doppler imaging of the major venous vessels of the left and right leg was performed. Comparison: None No thrombus seen in the examined deep venous vessels of the left and right leg including greater saphenous veins. Veins demonstrate normal compressibility. Venous waveforms are normal with and without augmentation. Impression: Left and right legs negative for DVT. Comment: Preliminary report was given.
[2017-06-06] MEDS: Trandate 100 MG PO SCH ×2 (09:45→21:33)
[2017-06-06] MEDS: Lactated Ringers 1,000 ML IV SCH ×2 (09:45→21:33)
[2017-06-06] MEDS: ROCEPHIN 1 Gm-D5w 50 ml Bag** 1 G/50 ML IVPB IV SCH (09:45)
[2017-06-06] MEDS: TYLENOL 325 MG PO PRN ×2 (11:37→23:59)
[2017-06-06] MEDS: Protonix 20MG Tablet PO SCH (11:50)
[2017-06-06] MEDS ORDERED: DUONEB 0.5-3 MG/3 ml Neb IH PRN (19:47)
[2017-06-06 21:53] LABS: 24 HR TOT. PROTEIN CALCULATION 10.095 GM/DAY (0.04-0.15)
[2017-06-07] MEDS: Norco 10/325 MG Tablet PO PRN ×2 (04:23→14:24)
[2017-06-07] MEDS: Trandate 100 MG PO SCH (11:07)
[2017-06-07] MEDS: ROCEPHIN 1 Gm-D5w 50 ml Bag** 1 G/50 ML IVPB IV SCH ×2 (11:07→14:45)
[2017-06-07] MEDS: Protonix 20MG Tablet PO SCH (11:07)
[2017-06-07] MEDS ORDERED: Trandate 100 MG PO ONE (11:51)
[2017-06-07 12:26] LABS: BASOPHIL % 0.2 % (0.0-0.4); Basophil (Absolute #) 0.03 (0-0.4); Eosinophil (Absolute #) 0.27 (0-0.5); Granulocyte Absolute (ANC) 9.83 (1.4-6.9); Granulocytes % 71.2 % (36.0-66.0); Hematocrit 37.2 % (35-47); Hemoglobin 12.6 gm/dl (12.0-16.0); Lymphocyte (Absolute #) 2.54 (1.0-4.6); Lymphocytes % 18.4 % (24.0-44.0); Mean Cell Volume 93.9 fl (78-100); Mean Corpuscular Hemoglobin 31.8 pg (26-32); Mean Corpuscular Hgb Concent. 33.9 g/dl (32-36); Mean Platelet Volume 10.6 fl (6-9.5); Monocyte (Absolute #) 1.13 (0.0-1.3); Monocytes % 8.2 % (0.0-12.0); Platelet Count 202 K/mm3 (150-450); Red Blood Count 3.96 M/mm3 (4.1-5.4); Red Cell Distribution Width 12.9 % (11.5-14.0); White Blood Count 13.8 K/mm3 (4.0-10.5)
[2017-06-07] MEDS ORDERED: Magnesium Sulfate 40 Gm/1000 Ml H2O Premix*** 1,000 ML IV SCH ×2 (12:30)
[2017-06-07] MEDS ORDERED: Celestone Soluspan 6MG/ML IM ONE (12:36)
[2017-06-07 12:39] LABS: ALBUMIN 1.6 g/dL (3.4-5.0); ALKALINE PHOSPHATASE 109 U/L (46-116); ANION GAP 12.5 MEQ/L (5-15); CHLORIDE 107 mEq/L (98-107); Calcium 8.1 mg/dL (8.5-10.1); Carbon Dioxide 23.3 mEq/L (21-32); Creatinine 1 0.92 mg/dl (0.55-1.30); EST GLOMERULAR FILTRATION RATE > 60 ML/MIN; Glucose 73 MG/DL (70-110); Potassium 4.1 mEq/L (3.5-5.1); SGPT/ALT 13 U/L (12-78); SODIUM 139 mEq/L (136-145); Total Protein 5.3 gm/dL (6.4-8.2)
[2017-06-07 12:50] LABS: BLOOD UREA NITROGEN 11 mg/dL (9-20); SGOT/AST 30 U/L (15-37)
[2017-06-07 12:53] LABS: BILIRUBIN,TOTAL < 0.10 mg/dL (0.2-1.0)
[2017-06-07] MEDS: Phenergan 25 MG INJ IV PRN (13:36)
[2017-06-07 15:19] LABS: Appearance CLEAR (CLEAR); Bacteria MODERATE /HPF (NEGATIVE); Bilirubin NEGATIVE (NEGATIVE); Blood NEGATIVE Ery/ul (0-5); Epithelial Cells FEW /HPF (FEW); Glucose NEGATIVE (NEGATIVE); Ketones NEGATIVE (NEGATIVE); Leukocyte Esterase NEGATIVE (NEGATIVE); Nitrite NEGATIVE (NEGATIVE); Protein,Urine Dip 300 (Negative); Urobilinogen NORMAL mg/dL (0-1)
[2017-06-07 17:09] VITALS: BP 133/93; PULSE 100; O2SAT 98
[2017-06-07] MEDS ORDERED: Trandate 100 MG PO SCH (22:00)
== END 2017-06-07 16:10 ==
LOC: MED SURG 12:55 → ICU 22:38 → MED SURG 06-06 09:23
PROVIDERS: ADMIT Family Medicine; ATTEND Family Medicine
DX: O26.893 Other specified pregnancy related conditions, third trimester (principal); Z3A.28 28 weeks gestation of pregnancy; O16.3 Unspecified maternal hypertension, third trimester; R06.02 Shortness of breath; R07.1 Chest pain on breathing; R07.81 Pleurodynia; R60.9 Edema, unspecified; K50.90 Crohn's disease, unspecified, without complications; J18.9 Pneumonia, unspecified organism
CPT/HCPCS: 01922; 36415; 36600; 71045; 71260; 76805; 76942; 80048; 80053; 81000; 82375; 82803; 82962; 84156; 84550; 85025; 85610; 85730; 87086; 87631; 93005; 93970; G0378; J0696; J0702; J1644; J2270; J2550; Q3014; A9270-GY

== ENCOUNTER 2017-07-21 11:55 | Observation (INO) | payer MEDICAID ==
[2017-07-21 13:00] LABS: BASOPHIL % 0.4 % (0.0-0.4); Basophil (Absolute #) 0.03 (0-0.4); Eosinophil (Absolute #) 0.08 (0-0.5); Granulocyte Absolute (ANC) 4.59 (1.4-6.9); Granulocytes % 58.4 % (36.0-66.0); Hematocrit 38.8 % (35-47); Lymphocyte (Absolute #) 2.53 (1.0-4.6); Lymphocytes % 32.2 % (24.0-44.0); Mean Cell Volume 94.2 fl (78-100); Mean Corpuscular Hemoglobin 31.6 pg (26-32); Mean Corpuscular Hgb Concent. 33.5 g/dl (32-36); Mean Platelet Volume 9.1 fl (6-9.5); Monocyte (Absolute #) 0.63 (0.0-1.3); Platelet Count 279 K/mm3 (150-450); Red Blood Count 4.12 M/mm3 (4.1-5.4); Red Cell Distribution Width 12.6 % (11.5-14.0); White Blood Count 7.9 K/mm3 (4.0-10.5)
[2017-07-21 13:20] LABS: ALBUMIN 4.3 g/dL (3.5-5.0); ALKALINE PHOSPHATASE 97 U/L (38-126); AMYLASE 118 U/L (30-110); ANION GAP 14.9 MEQ/L (5-15); BLOOD UREA NITROGEN 12 mg/dL (7-17); CHLORIDE 106 mmol/L (98-107); Calcium 9.6 mg/dL (8.4-10.2); Carbon Dioxide 24 mmol/L (22-30); Creatinine 1 0.88 mg/dL (0.52-1.04); Glucose 92 mg/dL (74-106); LIPASE 105 U/L (23-300); Potassium 3.9 mmol/L (3.5-5.1); SGOT/AST 23 U/L (14-36); SGPT/ALT 18 U/L (0-35); SODIUM 142 mmol/L (137-145); Total Protein 7.5 g/dL (6.3-8.2)
--- NOTE | 2017-07-21 13:59 | XRAY ---
Indication: Abdominal pain. History Crohn's disease. Comparison: Chest exam June 05, 2017. 2 views of the abdomen nonacute and nonobstructed with cholecystotomy clips. Solid organs and osseous structures unremarkable. Single PA chest again demonstrates normal heart, lungs, and bony thorax. Impression: Negative abdomen. Stable normal 1 view chest.
[2017-07-21] MEDS ORDERED: Lactated Ringers 1,000 ML IV SCH (14:00)
[2017-07-21] MEDS: ROCEPHIN 1 Gm-D5w 50 ml Bag** 1 G/50 ML IVPB IV SCH (14:35)
--- NOTE | 2017-07-21 15:21 | XRAY ---
Indication: Pelvic pain. Status post resection 6 weeks ago. Two-dimensional transvaginal pelvic ultrasound was performed. Comparison: June 10, 2016. Uterus again anteverted today measuring 7.0 x 3.6 x 5.0 cm. No focal solid/cystic mass. Endometrial stripe measures 4.1 mm in thickness. No endometrial cavity mass or fluid collection. Right ovary measures 2.0 x 1.0 x 2.0 cm and left measures 2.0 x 1.1 x 2.4 cm. Normal follicular cysts and perfusion. No suspicious adnexal mass or free fluid. Impression: Negative transvaginal pelvic ultrasound.
[2017-07-21] MEDS: Zofran 4 MG/2 ML VIAL IV PRN ×2 (15:47→21:13)
[2017-07-21] MEDS: MORPHINE SULFATE 10 MG/ML IV PRN ×2 (15:47→21:13)
[2017-07-21] MEDS ORDERED: BENADRYL 50 MG/ML IV ONE (16:14)
[2017-07-21] MEDS: Lactated Ringers 1,000 ML IV SCH (16:28)
[2017-07-21] MEDS ORDERED: PROTONIX 40 MG IV IV ONE (16:30)
[2017-07-21] MEDS: PROTONIX 40 MG IV IV SCH (16:32)
[2017-07-21] MEDS ORDERED: BENADRYL 50 MG/ML IV PRN (20:09)
[2017-07-21] MEDS: Pepcid 20 MG PO SCH (21:15)
[2017-07-21] MEDS ORDERED: NON-FORMULARY ITEM (Ranitidine Hcl [Zantac] 150 MG) PO SCH (22:00)
[2017-07-21] MEDS: BENADRYL 25 MG CAPSULE PO PRN (22:37)
[2017-07-21 23:51] LABS: Appearance CLEAR (CLEAR); Bilirubin NEGATIVE (NEGATIVE); Blood 250 Ery/ul (0-5); Glucose NEGATIVE (NEGATIVE); Ketones NEGATIVE (NEGATIVE); Leukocyte Esterase 1+ (NEGATIVE); Nitrite NEGATIVE (NEGATIVE); Protein,Urine Dip NEGATIVE (Negative); Urobilinogen NORMAL mg/dL (0-1)
[2017-07-21 23:52] LABS: Bacteria FEW /HPF (NEGATIVE); Epithelial Cells RARE /HPF (FEW)
[2017-07-22] MEDS: Lactated Ringers 1,000 ML IV SCH ×3 (00:48→19:27)
[2017-07-22] MEDS: MORPHINE SULFATE 10 MG/ML IV PRN ×5 (01:22→22:37)
[2017-07-22] MEDS: Zofran 4 MG/2 ML VIAL IV PRN ×4 (03:42→21:15)
[2017-07-22 05:43] LABS: BASOPHIL % 0.4 % (0.0-0.4); Basophil (Absolute #) 0.04 (0-0.4); Eosinophil (Absolute #) 0.11 (0-0.5); Granulocyte Absolute (ANC) 7.16 (1.4-6.9); Granulocytes % 64.9 % (36.0-66.0); Hematocrit 37.7 % (35-47); Hemoglobin 12.5 gm/dl (12.0-16.0); Lymphocyte (Absolute #) 2.86 (1.0-4.6); Mean Cell Volume 95.2 fl (78-100); Mean Corpuscular Hgb Concent. 33.2 g/dl (32-36); Mean Platelet Volume 9.1 fl (6-9.5); Monocyte (Absolute #) 0.85 (0.0-1.3); Monocytes % 7.7 % (0.0-12.0); Platelet Count 273 K/mm3 (150-450); Red Blood Count 3.96 M/mm3 (4.1-5.4); Red Cell Distribution Width 12.3 % (11.5-14.0)
[2017-07-22 05:54] LABS: Mean Corpuscular Hemoglobin 31.5 pg (26-32)
[2017-07-22 06:03] LABS: ANION GAP 14.4 MEQ/L (5-15); BLOOD UREA NITROGEN 9 mg/dL (7-17); CHLORIDE 107 mmol/L (98-107); Calcium 9.3 mg/dL (8.4-10.2); Carbon Dioxide 22 mmol/L (22-30); Creatinine 1 0.78 mg/dL (0.52-1.04); Glucose 76 mg/dL (74-106); Potassium 3.7 mmol/L (3.5-5.1); SODIUM 140 mmol/L (137-145)
[2017-07-22] MEDS: BENADRYL 25 MG CAPSULE PO PRN (06:58)
--- NOTE | 2017-07-22 09:02 | PCM.NOTE ---
Date and Time: 07/22/17858 Subjective Assessment: Pt admitted through office yesterday with c/o abd pain and not toelrating po. She has chronic hx abd pain, was dx with Crohn's but now the dx is unsure; has been seeing GI but was not compliant with visits. Overnight she had vomiting and diarrhea per pt. She continues to have some itching, would like benadryl but the caps make her nauseated. She continues to have abd pain. U/s yesterday was negative (pelvis). Objective Exam General Appearance: mild distress, alert Neurologic Exam: oriented x 3, cooperative Skin Exam: normal color, warm, dry, No rash Respiratory Exam: normal breath sounds, lungs clear, No crackles/rales, No rhonchi, No wheezing Cardiovascular Exam: regular rate/rhythm, normal heart sounds, No murmur Gastrointestinal/Abdomen Exam: soft, normal bowel sounds, tenderness (diffuse), No mass, No guarding, No rebound Extremity Exam: No pedal edema, No swelling Back Exam: normal inspection, No rash OBJECTIVE DATA Vital Signs: Vital Signs - 24 hr Temp Pulse Resp BP BP BP Pulse Ox 07/22/17 07:53 98.3 F 97 H 18 112/65 96 07/22/17 04:00 97.9 F 87 16 119/80 100 07/22/17 00:00 97.9 F 85 16 119/75 100 07/21/17 20:00 98.8 F 106 H 18 105/66 95 07/21/17 16:20 98.6 F 101 H 20 134/72 100 07/21/17 12:35 98.4 F 99 H 18 114/64 97 07/21/17 12:29 98.4 F 99 H 18 114/64 97 Pain Assessment - Last Documented Pain Intensity 8 Pain Scale Used 0-10 Pain Scale Intake and Output: Intake & Output 07/19/17 07/20/17 07/21/17 07/22/17 11:59 11:59 11:59 11:59 Intake Total 3212 Output Total 3050 Balance 162 Weight 58 kg Lab Results: Lab Results-Last 24 Hours 07/21/17 07/21/17 07/21/17 Range/Units 12:47 12:47 16:48 WBC 7.9 (4.0-10.5) K/mm3 RBC 4.12 (4.1-5.4) M/mm3 Hgb 13.0 (12.0-16.0) gm/dl Hct 38.8 (35-47) % MCV 94.2 (78-100) fl MCH 31.6 (26-32) pg MCHC 33.5 (32-36) g/dl RDW 12.6 (11.5-14.0) % Plt Count 279 (150-450) K/mm3 MPV 9.1 (6-9.5) fl Gran % 58.4 (36.0-66.0) % Lymphocytes % 32.2 (24.0-44.0) % Monocytes % 8.0 (0.0-12.0) % Eosinophils % 1.0 (0.00-5.0) % Basophils % 0.4 (0.0-0.4) % Basophils # 0.03 (0-0.4) Sodium 142 (137-145) mmol/L Potassium 3.9 (3.5-5.1) mmol/L Chloride 106 (98-107) mmol/L Carbon Dioxide 24 (22-30) mmol/L Anion Gap 14.9 (5-15) MEQ/L BUN 12 (7-17) mg/dL Creatinine 0.88 (0.52-1.04) mg/dL Estimated GFR > 60 ML/MIN Glucose 92 (74-106) mg/dL Calcium 9.6 (8.4-10.2) mg/dL Total Bilirubin 0.50 (0.2-1.3) mg/dL AST 23 (14-36) U/L ALT 18 (0-35) U/L Alkaline Phosphatase 97 (38-126) U/L Troponin I < 0.012 (0.000-0.034) ng/mL Serum Total Protein 7.5 (6.3-8.2) g/dL Albumin 4.3 (3.5-5.0) g/dL Amylase 118 H (30-110) U/L Lipase 105 (23-300) U/L Ur Collection Type Urine Color (YELLOW) Urine Appearance (CLEAR) Urine pH (5-6) Ur Specific [place] (1.005-1.025) Urine Protein (Negative) Urine Ketones (NEGATIVE) Urine Blood (0-5) [place]/ul Urine Nitrite (NEGATIVE) Urine Bilirubin (NEGATIVE) Urine Urobilinogen (0-1) mg/dL Ur Leukocyte Esterase (NEGATIVE) Urine Microscopic RBC (0-2) /HPF Urine Microscopic WBC (0-5) /HPF Ur Epithelial Cells (FEW) /HPF Urine Bacteria (NEGATIVE) /HPF Urine Culture Reflexed (NO) Urine Glucose (NEGATIVE) mg/dL Specimen Received 07/21/17 07/22/17 07/22/17 Range/Units 23:47 05:00 05:00 WBC 11.0 H (4.0-10.5) K/mm3 RBC 3.96 L (4.1-5.4) M/mm3 Hgb 12.5 (12.0-16.0) gm/dl Hct 37.7 (35-47) % MCV 95.2 (78-100) fl MCH 31.5 (26-32) pg MCHC 33.2 (32-36) g/dl RDW 12.3 (11.5-14.0) % Plt Count 273 (150-450) K/mm3 MPV 9.1 (6-9.5) fl Gran % 64.9 (36.0-66.0) % Lymphocytes % 26.0 (24.0-44.0) % Monocytes % 7.7 (0.0-12.0) % Eosinophils % 1.0 (0.00-5.0) % Basophils % 0.4 (0.0-0.4) % Basophils # 0.04 (0-0.4) Sodium 140 (137-145) mmol/L Potassium 3.7 (3.5-5.1) mmol/L Chloride 107 (98-107) mmol/L Carbon Dioxide 22 (22-30) mmol/L Anion Gap 14.4 (5-15) MEQ/L BUN 9 (7-17) mg/dL Creatinine 0.78 (0.52-1.04) mg/dL Estimated GFR > 60 ML/MIN Glucose 76 (74-106) mg/dL Calcium 9.3 (8.4-10.2) mg/dL Total Bilirubin (0.2-1.3) mg/dL AST (14-36) U/L ALT (0-35) U/L Alkaline Phosphatase (38-126) U/L Troponin I (0.000-0.034) ng/mL Serum Total Protein (6.3-8.2) g/dL Albumin (3.5-5.0) g/dL Amylase (30-110) U/L Lipase (23-300) U/L Ur Collection Type CLEAN CATCH Urine Color YELLOW (YELLOW) Urine Appearance CLEAR (CLEAR) Urine pH 7.0 (5-6) Ur Specific [place] 1.010 (1.005-1.025) Urine Protein NEGATIVE (Negative) Urine Ketones NEGATIVE (NEGATIVE) Urine Blood 250 (0-5) [place]/ul Urine Nitrite NEGATIVE (NEGATIVE) Urine Bilirubin NEGATIVE (NEGATIVE) Urine Urobilinogen NORMAL (0-1) mg/dL Ur Leukocyte Esterase 1+ (NEGATIVE) Urine Microscopic RBC 15-25 (0-2) /HPF Urine Microscopic WBC 5-10 (0-5) /HPF Ur Epithelial Cells RARE (FEW) /HPF Urine Bacteria FEW (NEGATIVE) /HPF Urine Culture Reflexed YES (NO) Urine Glucose NEGATIVE (NEGATIVE) mg/dL Specimen Received [id number] Radiology Exams: Radiology Procedures Category Date Time Status ABDOMEN AND PELVIS W CONTRAST [CT] Routine Exams 07/22/17 08:58 Ordered OBSTR/ACUTE ABDOMEN SERIES Stat Exams 07/21/17 13:47 Completed PELVIS TRANS VAGINAL [US] Urgent Exams 07/21/17 14:27 Completed Assessment/Plan (1) Abdominal pain Current Visit: Yes Status: Acute Assessment & Plan: Not improved, with mild WBC elevation this morning. Will go ahead and do CT abd /pelvis; was trying to avoid repeating a scan. Code(s): R10.9 - UNSPECIFIED ABDOMINAL PAIN (2) Diarrhea Current Visit: Yes Status: Acute Qualifiers: Diarrhea type: unspecified type Qualified Code(s): R19.7 - Diarrhea, unspecified Assessment & Plan: check for c. diff. Code(s): R19.7 - DIARRHEA, UNSPECIFIED (3) Vomiting Current Visit: No Status: Acute Qualifiers: Vomiting type: unspecified Vomiting Intractability: non-intractable Nausea presence: with nausea Qualified Code(s): R11.2 - Nausea with vomiting, unspecified Assessment & Plan: zofran prn. Code(s): R11.10 - VOMITING, UNSPECIFIED
[2017-07-22] MEDS ORDERED: NON-FORMULARY ITEM (Sertraline Hcl [Zoloft] 25 MG) PO SCH (10:00)
[2017-07-22] MEDS: ZOLOFT 50 MG TABLET PO SCH (11:19)
[2017-07-22] MEDS: Pepcid 20 MG PO SCH ×2 (11:19→21:15)
[2017-07-22] MEDS: ROCEPHIN 1 Gm-D5w 50 ml Bag** 1 G/50 ML IVPB IV SCH (11:20)
[2017-07-22] MEDS: Flonase NASAL NS SCH (11:20)
--- NOTE | 2017-07-22 12:07 | XRAY ---
Indication: Abdominal pain and vomiting. Multiple contiguous axial images obtained through the abdomen and pelvis using 80 cc Isovue 370 contrast only. Comparison: June 24, 2016. Lung bases essentially clear. Heart is not enlarged. Noncontrasted stomach and bowel loops appear nonobstructed. Normal appendix. Mild scattered colonic fecal debris. Again previous cholecystectomy. No free fluid/air. Spleen is borderline enlarged measuring 12.8 cm in greatest axial dimension. Remaining liver, pancreas, spleen, adrenal glands, kidneys, ureters, bladder, uterus, and aorta appear unremarkable. No pathologic retroperitoneal lymphadenopathy. Osseous structures intact. No ventral or inguinal hernias. Impression: 1. Mild fecal stasis without obstruction and borderline splenomegaly. 2. Remaining CT abdomen/pelvis with contrast exam is negative. CT DI 14.25
[2017-07-22] MEDS: BENADRYL 50 MG/ML IV PRN ×2 (14:20→20:23)
[2017-07-22] MEDS: PROTONIX 40 MG IV IV SCH (16:38)
[2017-07-23] MEDS: Zofran 4 MG/2 ML VIAL IV PRN ×5 (02:08→23:50)
[2017-07-23] MEDS: Lactated Ringers 1,000 ML IV SCH ×2 (03:08→12:23)
[2017-07-23] MEDS: MORPHINE SULFATE 10 MG/ML IV PRN ×5 (03:08→23:49)
[2017-07-23] MEDS: BENADRYL 50 MG/ML IV PRN ×2 (03:39→22:10)
[2017-07-23 07:08] LABS: BASOPHIL % 0.7 % (0.0-0.4); Basophil (Absolute #) 0.04 (0-0.4); Eosinophil % 3.1 % (0.00-5.0); Eosinophil (Absolute #) 0.19 (0-0.5); Granulocyte Absolute (ANC) 2.84 (1.4-6.9); Granulocytes % 47.1 % (36.0-66.0); Hematocrit 36.3 % (35-47); Hemoglobin 12.2 gm/dl (12.0-16.0); Lymphocyte (Absolute #) 2.46 (1.0-4.6); Lymphocytes % 40.7 % (24.0-44.0); Mean Cell Volume 94.8 fl (78-100); Mean Corpuscular Hgb Concent. 33.6 g/dl (32-36); Mean Platelet Volume 9.5 fl (6-9.5); Monocyte (Absolute #) 0.51 (0.0-1.3); Monocytes % 8.4 % (0.0-12.0); Platelet Count 249 K/mm3 (150-450); Red Blood Count 3.83 M/mm3 (4.1-5.4); Red Cell Distribution Width 12.3 % (11.5-14.0)
[2017-07-23 07:09] LABS: ANION GAP 10.3 MEQ/L (5-15); BLOOD UREA NITROGEN 8 mg/dL (7-17); CHLORIDE 104 mmol/L (98-107); Calcium 9.6 mg/dL (8.4-10.2); Carbon Dioxide 30 mmol/L (22-30); Creatinine 1 0.88 mg/dL (0.52-1.04); Glucose 104 mg/dL (74-106); Potassium 3.8 mmol/L (3.5-5.1); SODIUM 140 mmol/L (137-145)
[2017-07-23 07:22] LABS: Mean Corpuscular Hemoglobin 31.8 pg (26-32)
--- NOTE | 2017-07-23 08:40 | PCM.NOTE ---
Date and Time: 07/23/17 0837 Subjective Assessment: Pt states she has still had vomiting and diarrhea (although nurse has not witnessed any vomiting); pt still c/o nausea. She states it is difficult to urinate and she doesn't feel as though she's emptying. Continues to have abdominal pain. - Review of Systems Constitutional: No Fever Abdominal/Gastrointestinal: Abdominal Pain Objective Exam General Appearance: mild distress, alert Neurologic Exam: oriented x 3, cooperative Skin Exam: normal color, warm, dry, No rash Respiratory Exam: normal breath sounds, lungs clear, No crackles/rales, No rhonchi, No wheezing Cardiovascular Exam: regular rate/rhythm, normal heart sounds, No murmur Gastrointestinal/Abdomen Exam: soft, normal bowel sounds, tenderness (diffuse), No distention, No mass, No guarding, No rebound Extremity Exam: normal inspection, No pedal edema, No swelling Back Exam: normal inspection, No rash OBJECTIVE DATA Vital Signs: Vital Signs - 24 hr Temp Pulse Resp BP BP BP Pulse Ox 07/23/17 07:38 98.6 F 96 H 18 116/70 98 07/23/17 04:00 98.0 F 70 16 117/62 92 L 07/23/17 00:00 98.8 F 71 16 115/73 97 07/22/17 20:00 98.0 F 86 16 112/64 99 07/22/17 16:00 97.8 F 81 18 102/67 134/72 114/64 98 07/22/17 12:00 98.1 F 89 18 107/60 97 Pain Assessment - Last Documented Pain Intensity 6 Pain Scale Used 0-10 Pain Scale,FLACC Intake and Output: Intake & Output 07/20/17 07/21/17 07/22/17 07/23/17 11:59 11:59 11:59 11:59 Intake Total 3212 4511 Output Total 3050 3500 Balance 162 1011 Weight 58 kg Lab Results: Lab Results-Last 24 Hours 07/23/17 07/23/17 Range/Units 06:45 06:45 WBC 6.0 (4.0-10.5) K/mm3 RBC 3.83 L (4.1-5.4) M/mm3 Hgb 12.2 (12.0-16.0) gm/dl Hct 36.3 (35-47) % MCV 94.8 (78-100) fl MCH 31.8 (26-32) pg MCHC 33.6 (32-36) g/dl RDW 12.3 (11.5-14.0) % Plt Count 249 (150-450) K/mm3 MPV 9.5 (6-9.5) fl Gran % 47.1 (36.0-66.0) % Lymphocytes % 40.7 (24.0-44.0) % Monocytes % 8.4 (0.0-12.0) % Eosinophils % 3.1 (0.00-5.0) % Basophils % 0.7 (0.0-0.4) % Basophils # 0.04 (0-0.4) Sodium 140 (137-145) mmol/L Potassium 3.8 (3.5-5.1) mmol/L Chloride 104 (98-107) mmol/L Carbon Dioxide 30 (22-30) mmol/L Anion Gap 10.3 (5-15) MEQ/L BUN 8 (7-17) mg/dL Creatinine 0.88 (0.52-1.04) mg/dL Estimated GFR > 60 ML/MIN Glucose 104 (74-106) mg/dL Calcium 9.6 (8.4-10.2) mg/dL Radiology Exams: Radiology Procedures Category Date Time Status ABDOMEN AND PELVIS W CONTRAST [CT] Routine Exams 07/22/17 08:58 Completed BLADDER [US] Routine Exams 07/23/17 Ordered OBSTR/ACUTE ABDOMEN SERIES Stat Exams 07/21/17 13:47 Completed PELVIS TRANS VAGINAL [US] Urgent Exams 07/21/17 14:27 Completed Assessment/Plan (1) Abdominal pain Current Visit: Yes Status: Acute Assessment & Plan: I'm unsure the etiology. Could still be Crohn's disease, although she needs to finish the workup for that. She is also being worked up for [place] syndrome ( her baby likely has this), which carries some GI manifestations. Will back off on diet today (back to NPO) and maybe try some po again this evening. Code(s): R10.9 - UNSPECIFIED ABDOMINAL PAIN (2) Diarrhea Current Visit: Yes Status: Acute Qualifiers: Diarrhea type: unspecified type Qualified Code(s): R19.7 - Diarrhea, unspecified Assessment & Plan: stool for c. diff. Code(s): R19.7 - DIARRHEA, UNSPECIFIED (3) Vomiting Current Visit: No Status: Resolved Qualifiers: Vomiting type: unspecified Vomiting Intractability: non-intractable Nausea presence: with nausea Qualified Code(s): R11.2 - Nausea with vomiting, unspecified Code(s): R11.10 - VOMITING, UNSPECIFIED (4) Urinary retention Current Visit: Yes Status: Acute Assessment & Plan: check bladder u/s Code(s): R33.9 - RETENTION OF URINE, UNSPECIFIED
--- NOTE | 2017-07-23 09:15 | XRAY ---
Indication: Urinary retention. Two-dimensional sonogram of the urinary bladder performed. Comparison: None Urinary bladder adequately distended without focal mass or wall thickening. Prevoid volume is 377 cc. Postvoid volume is 83 cc. Impression: Small postvoid residual in a otherwise negative urinary bladder sonogram.
[2017-07-23] MEDS: ZOLOFT 50 MG TABLET PO SCH (11:34)
[2017-07-23] MEDS: Pepcid 20 MG PO SCH ×2 (11:34→21:50)
[2017-07-23] MEDS: ROCEPHIN 1 Gm-D5w 50 ml Bag** 1 G/50 ML IVPB IV SCH (11:34)
[2017-07-23] MEDS: Flonase NASAL NS SCH (11:34)
[2017-07-23] MEDS: ENOXAPARIN SODIUM SQ SCH (11:35)
[2017-07-23] MEDS: BENADRYL 25 MG CAPSULE PO PRN (14:34)
[2017-07-23] MEDS: PROTONIX 40 MG IV IV SCH (17:23)
[2017-07-23] MEDS: Dextrose 5% -0.45 NaCl 1000 ML 1,000 ML IV SCH (18:32)
[2017-07-24] MEDS: Zofran 4 MG/2 ML VIAL IV PRN ×2 (04:09→08:33)
[2017-07-24] MEDS: Dextrose 5% -0.45 NaCl 1000 ML 1,000 ML IV SCH (04:09)
[2017-07-24] MEDS: MORPHINE SULFATE 10 MG/ML IV PRN ×2 (04:09→08:32)
[2017-07-24] MEDS: BENADRYL 50 MG/ML IV PRN (05:23)
[2017-07-24 07:13] VITALS: O2SAT 100
[2017-07-24] MEDS: Flonase NASAL NS SCH (08:33)
[2017-07-24] MEDS: ENOXAPARIN SODIUM SQ SCH (08:33)
[2017-07-24] MEDS: Pepcid 20 MG PO SCH (08:34)
[2017-07-24] MEDS: ZOLOFT 50 MG TABLET PO SCH (08:34)
--- NOTE | 2017-07-24 09:04 | PCM.DS ---
Discharge Summary Date of Admission: 07/21/17 12:13 Admitting Physician: PENNY CHENG Primary Care Provider: PENNY CHENG Allergies Allergies adhesive tape Allergy (Intermediate, Verified 07/21/17 12:27) Blisters [place] Allergy (Verified 07/21/17 12:27) paroxetine HCl [From Paxil] Adverse Reaction (Verified 07/21/17 12:27) Nausea Hospital Summary - Hospital Course Hospital Course: Pt admitted with abd pain, vomiting, and diarrhea. She has a history of questionable Crohn's disease possibly, and is being worked up for [place] syndrome. She had IV fluids and IV pain medicine. CT and u/s abd/pelvis without acute findings. Labs have been wnl throughout. S he has complained of urinary retention. Bladder u/s done yesterday and will be repeated today. Will plan to d/c pt today if she tolerates some po (she wants peanut butter crackers). Will send home on small dose of pain meds and zofran. Advised if any change would go to ER at [facility] where GI is available. Will set pt up with outpatient GI. - Vitals & Intake/Output Vital Signs: Vital Signs Temperature 98.1 F 07/24/17 07:12 Pulse Rate 103 H 07/24/17 07:12 Respiratory Rate 16 07/24/17 07:12 Blood Pressure 108/63 07/24/17 07:12 O2 Sat by Pulse Oximetry 100 07/24/17 07:12 Intake & Output: Intake & Output 07/21/17 07/22/17 07/23/17 07/24/17 11:59 11:59 11:59 11:59 Intake Total 3212 4571 1532 Output Total 3050 3500 3350 Balance 162 1071 -1818 Weight 58 kg - Lab Result Diagrams: 07/23/17 06:45 07/23/17 06:45 Micro Results-Entire Visit: Microbiology 07/21/17 23:47 Urine Culture - Final Clean Catch Midstream NO GROWTH - Radiology Exams Ordered Rad Exams-Entire Visit: Radiology Procedures Category Date Time Status ABDOMEN AND PELVIS W CONTRAST [CT] Routine Exams 07/22/17 08:58 Completed BLADDER [US] Routine Exams 07/23/17 09:06 Completed BLADDER [US] Routine Exams 07/24/17 Ordered - Procedures and Test Procedures and Tests throughout Hospitalization: Therapy Orders & Screens 07/21/17 16:13 EKG STAT Comment: Diagnosis: Vomiting, dehydration, abd.pain, UTI, crohns disease Discharge Exam General Appearance: mild distress (has multiple complaints. Sitting up in chair with her knees drawn up to her chest.), alert Neurologic Exam: oriented x 3, cooperative Skin Exam: normal color, warm, dry, No rash Respiratory Exam: normal breath sounds, lungs clear, No crackles/rales, No rhonchi, No wheezing Cardiovascular Exam: regular rate/rhythm, normal heart sounds, No murmur Gastrointestinal/Abdomen Exam: soft, normal bowel sounds, tenderness (diffuse), No distention, No mass, No guarding, No rebound Extremity Exam: normal inspection, No pedal edema, No swelling Back Exam: normal inspection, No rash Final Diagnosis/Problem List - Final Discharge Diagnosis/Problem (1) Abdominal pain Current Visit: Yes Status: Acute Assessment & Plan: Persistent, unknown etiology. CT and pelvic u/s without acute findings. Normal WBC count. Has chronic issues; needs to f/u outpatient with GI. (2) Diarrhea Current Visit: Yes Status: Resolved (3) Vomiting Current Visit: No Status: Resolved (4) Urinary retention Current Visit: Yes Status: Acute Assessment & Plan: will recheck bladder u/s today, if residual will place catheter and have her f/ u outpatient with urology. - Discharge Disposition: Home, Self-Care Condition: Stable Prescriptions: New Hydrocodone Bit/Acetaminophen [[place] 10-325 Tablet] 1 each PO TID PRN #12 tablet MDD 3 PRN Reason: Pain Continue Ranitidine HCl [Zantac] 150 mg PO BID Hydrocodone Bit/Acetaminophen [Hydrocodon-Acetaminophen 5-325] 2 tab PO Q4HPRN PRN PRN Reason: Pain Fluticasone Propionate [Flonase NASAL] 1 spray NS DAILY Ibuprofen 600 mg PO Q6HPRN PRN PRN Reason: Pain Ondansetron ODT 4 MG [Zofran Odt 4 mg] 4 mg PO Q8H PRN PRN PRN Reason: Nausea/Vomiting Sertraline HCl [Zoloft] 25 mg PO DAILY Discontinued Nitrofurantoin Monohyd/M-Cryst [Nitrofurantoin Woodruff-Mcr 100 mg] 100 mg PO UD Follow up with: PENNY CHENG [Primary Care Provider] - 1 Week
[2017-07-24] MEDS: ROCEPHIN 1 Gm-D5w 50 ml Bag** 1 G/50 ML IVPB IV SCH (10:33)
--- NOTE | 2017-07-24 10:57 | XRAY ---
Indication: Urinary retention. Difficulty urinating. Two-dimensional sonogram of the urinary performed. Comparison: One day earlier. Visualized portions of the urinary bladder again negative for focal bladder mass or wall thickening. Prevoid volume is 207 cc. Postvoid volume is 70 cc. Impression: Stable small postvoid residual. No new findings.
[2017-07-24 11:22] VITALS: BP 112/67; PULSE 90
== END 2017-07-24 11:31 | disposition home or self-care (01) ==
LOC: MED SURG 12:13
PROVIDERS: ADMIT Family Medicine; ATTEND Family Medicine
DX: R10.9 Unspecified abdominal pain (principal); R19.7 Diarrhea, unspecified; R11.2 Nausea with vomiting, unspecified; R33.9 Retention of urine, unspecified
CPT/HCPCS: 36415; 74022; 74177; 76705; 76830; 80048; 80053; 81000; 82150; 83690; 84484; 85025; 87086; 93005; 93268; G0378; J0696; J1200; J1650; J2270; J2405; A9270-GY

== ENCOUNTER 2017-09-08 21:23 | Emergency (ER) | payer MEDICAID ==
--- NOTE | 2017-09-08 22:02 | ERPHSYRPT ---
- History of Present Illness Time Seen by Provider: 09/08/17 21:50 Historian: patient Exam Limitations: no limitations Patient Subjective Stated Complaint: pt arrives to ER with c/o rectal bleeding around noon had bloody diarrhea x1 episode. Denies any injury to rectum. States has hx of Crohn's. Also 3 months post-. Lower abdominal pain. Describes as cramping and sharp pain. States vomited yesterday. Admits to nausea today. States always has dysuria, nothing new. Denies fever, vaginal discharge, hematuria or any other sx. Triage Nursing Assessment: Does not appear to be in any acute distress at this time with respirations easy even regular and unlabored. Gait is steady. A&Ox4. Physician History: The patient is a 21-year-old female with her mother complaining that she had a significant amount of bright red blood per rectum today at around noon. She has not had any more bleeding since then. She has crampy abdominal pain. She has a history of Crohn's disease but has not taken any medicines for the Crohn during her that ended with delivery of a 28 week male. She has not seen a doctor since delivery because she has been taking her to [facility] several times for medical issues. Today she was once again at [facility] when she had the bloody stool. Pt was dizzy and lightheaded. Nauseated. She called her local doctor, Dr. Sol, who told her to come to the ER. She traveled from [place] to [place] to come to the ER. She states the nurses at [facility] are taking care of her infant son yoselin. Her past medical history is significant for Crohn's disease and depression. Timing/Duration: today, resolved prior to arrival (rectal bleeding) Activities at Onset: none Quality: aching Abdominal Pain Onset Location: generalized abdomen Pain Radiation: no radiation Severity of Pain-Max: mild Severity of Pain-Current: mild Modifying Factors: Improves With: nothing Associated Symptoms: nausea, other (bloody diarrhea) Previous symptoms: no prior history Allergies/Adverse Reactions: adhesive tape Allergy (Intermediate, Verified 09/08/17 21:37) Blisters [place] Allergy (Verified 09/08/17 21:37) paroxetine HCl [From Paxil] Adverse Reaction (Verified 09/08/17 21:37) Nausea Home Medications: Fluticasone Propionate [Flonase NASAL] 1 spray NS DAILY 07/21/17 [History] Ibuprofen 600 mg PO Q6HPRN PRN 07/21/17 [History] Ranitidine HCl [Zantac] 150 mg PO BID 07/21/17 [History] Hx Tetanus, Diphtheria Vaccination/Date Given: Yes Hx Influenza Vaccination/Date Given: No Hx Pneumococcal Vaccination/Date Given: No Immunizations Up to Date: Yes - Review of Systems Constitutional: No Fever, No Chills Eyes: No Symptoms Ears, Nose, & Throat: No Symptoms Respiratory: No Cough, No Dyspnea Cardiac: No Chest Pain, No Edema, No Syncope Abdominal/Gastrointestinal: Abdominal Pain, Nausea, Diarrhea, No Vomiting Genitourinary Symptoms: No Dysuria Musculoskeletal: No Back Pain, No Neck Pain Skin: No Rash Neurological: No Dizziness, No Focal Weakness, No Sensory Changes Psychological: No Symptoms Endocrine: No Symptoms Hematologic/Lymphatic: No Symptoms Immunological/Allergic: No Symptoms All Other Systems: Reviewed and Negative - Past Medical History Pertinent Past Medical History: Yes Neurological History: Migraines ENT History: No Pertinent History Cardiac History: No Pertinent History Respiratory History: Asthma Endocrine Medical History: No Pertinent History Musculoskeletal History: No Pertinent History GI Medical History: Crohns Disease, GERD, Gallbladder Disease, Irritable Bowel History: No Pertinent History Psycho-Social History: Depression Female Reproductive Disorders: Other Other Medical History: Reports Crohns; cysts on ovaries - Past Surgical History Past Surgical History: Yes Neuro Surgical History: No Pertinent History Cardiac: No Pertinent History Respiratory: No Pertinent History Gastrointestinal: Cholecystectomy Genitourinary: Other Musculoskeletal: Orthopedic Surgery Female Surgical History: No Pertinent History Other Surgical History: right rotator cuff repair. Ear tubes bilat,ovarian cyst 2017. ovarian cyst removal jun 2016. colonscopy jun 2016 - Social History Smoking Status: Never smoker How long have you smoked: 1 month Exposure to second hand smoke: No Alcohol Use: None Drug Use: none Patient Lives Alone: No Significant Family History: no pertinent family hx - Female History Hx Last Menstrual Period: last month Hx Now: No - Nursing Vital Signs Nursing Vital Signs: Initial Vital Signs Temperature 98.5 F 09/08/17 21:28 Pulse Rate 84 09/08/17 21:28 Respiratory Rate 18 09/08/17 21:28 Blood Pressure 120/76 09/08/17 21:28 O2 Sat by Pulse Oximetry 99 09/08/17 21:28 Pain Scale Pain Intensity 4 - Physical Exam General Appearance: no apparent distress, alert Eye Exam: PERRL/EOMI, eyes nml inspection Ears, Nose, Throat Exam: normal ENT inspection, pharynx normal, moist mucous membranes Neck Exam: normal inspection, non-tender, supple, full range of motion Respiratory Exam: normal breath sounds, lungs clear, No respiratory distress Cardiovascular Exam: regular rate/rhythm, normal heart sounds Gastrointestinal/Abdomen Exam: tenderness (generalized), other (hyperactibe BS) Pelvic Exam: not done Back Exam: normal inspection, normal range of motion, No CVA tenderness, No vertebral tenderness Extremity Exam: normal inspection, normal range of motion, pelvis stable Neurologic Exam: alert, oriented x 3, cooperative, normal mood/affect, nml cerebellar function, sensation nml, No motor deficits Skin Exam: normal color, warm, dry SpO2 Interpretation: normal SpO2: 99 Oxygen Delivery: Room Air - CT Exams Abdomen/Pelvis CT Interpretation: Negative (per Dr Dimas), Tele-radiologist Report Ordered Tests: Active Orders 24 hr Category Date Time Status IV Insertion STAT Care 09/08/17 22:06 Active ABDOMEN AND PELVIS W/0 CONTRAS [CT] Stat Exams 09/08/17 22:07 Taken CBC W DIFF Stat Lab 09/08/17 22:10 Completed CMP Stat Lab 09/08/17 22:30 Completed HCG QUALITATIVE,SERUM Stat Lab 09/08/17 22:10 Completed Lactic Acid Stat Lab 09/08/17 22:30 Completed Occult Blood,Stool Other Stat Lab 09/08/17 23:53 Completed Medication Summary Discontinued Medications Generic Name Dose Route Start Last Admin Trade Name Mitchq PRN Reason Stop Dose Admin Sodium Chloride 1,000 mls @ 999 mls/hr 09/08/17 22:06 09/08/17 22:14 Sodium Chloride 0.9% 1000 Ml IV 09/08/17 23:06 999 mls/hr .Q1H1M STA Administration Sodium Chloride Confirm 09/08/17 22:10 Sodium Chloride 0.9% 1000 Ml Administered 09/08/17 22:11 Dose 1,000 mls @ ud .ROUTE .STK-MED ONE Ondansetron HCl 4 mg 09/08/17 22:06 09/08/17 22:14 Zofran 4 Mg/2 Ml Vial IV 09/08/17 22:07 4 mg STAT ONE Administration Ondansetron HCl Confirm 09/08/17 22:10 Zofran 4 Mg/2 Ml Vial Administered 09/08/17 22:11 Dose 4 mg .ROUTE .STK-MED ONE Pantoprazole Sodium 40 mg 09/08/17 22:06 09/08/17 22:13 Protonix 40 Mg Iv IV 09/08/17 22:07 40 mg STAT ONE Administration Pantoprazole Sodium Confirm 09/08/17 22:10 Protonix 40 Mg Iv Administered 09/08/17 22:11 Dose 40 mg IV .STK-MED ONE Lab/Rad Data: Laboratory Result Diagrams 09/08/17 22:10 09/08/17 22:30 Laboratory Results 09/08/17 09/08/17 09/08/17 Range/Units 23:53 22:30 22:30 WBC (4.0-10.5) K/mm3 RBC (4.1-5.4) M/mm3 Hgb (12.0-16.0) gm/dl Hct (35-47) % MCV (78-100) fl MCH (26-32) pg MCHC (32-36) g/dl RDW (11.5-14.0) % Plt Count (150-450) K/mm3 MPV (6-9.5) fl Gran % (36.0-66.0) % Eos # (Auto) (0-0.5) Absolute Lymphs (auto) (1.0-4.6) Absolute Monos (auto) (0.0-1.3) Lymphocytes % (24.0-44.0) % Monocytes % (0.0-12.0) % Eosinophils % (0.00-5.0) % Basophils % (0.0-0.4) % Absolute Granulocytes (1.4-6.9) Basophils # (0-0.4) Sodium 139 (137-145) mmol/L Potassium 3.9 (3.5-5.1) mmol/L Chloride 107 (98-107) mmol/L Carbon Dioxide 21 L (22-30) mmol/L Anion Gap 14.8 (5-15) MEQ/L BUN 14 (7-17) mg/dL Creatinine 0.71 (0.52-1.04) mg/dL Estimated GFR > 60.0 ML/MIN Glucose 91 (74-106) mg/dL Lactic Acid (0.4-2.0) Calcium 9.5 (8.4-10.2) mg/dL Total Bilirubin 0.40 (0.2-1.3) mg/dL AST 23 (14-36) U/L ALT 20 (0-35) U/L Alkaline Phosphatase 79 (38-126) U/L Serum Total Protein 7.2 (6.3-8.2) g/dL Albumin 4.3 (3.5-5.0) g/dL Serum , Qual (Negative) Stool Occult Blood NEGATIVE (Negative) ABO Group O Rh Factor POSITIVE Antibody Screen NEGATIVE (NEGATIVE) 09/08/17 09/08/17 09/08/17 Range/Units 22:30 22:10 22:10 WBC 8.9 (4.0-10.5) K/mm3 RBC 4.61 (4.1-5.4) M/mm3 Hgb 14.3 (12.0-16.0) gm/dl Hct 41.3 (35-47) % MCV 89.6 (78-100) fl MCH 31.0 (26-32) pg MCHC 34.6 (32-36) g/dl RDW 12.7 (11.5-14.0) % Plt Count 285 (150-450) K/mm3 MPV 9.6 H (6-9.5) fl Gran % 51.3 (36.0-66.0) % Eos # (Auto) 0.07 (0-0.5) Absolute Lymphs (auto) 3.57 (1.0-4.6) Absolute Monos (auto) 0.62 (0.0-1.3) Lymphocytes % 40.3 (24.0-44.0) % Monocytes % 7.0 (0.0-12.0) % Eosinophils % 0.8 (0.00-5.0) % Basophils % 0.6 (0.0-0.4) % Absolute Granulocytes 4.54 (1.4-6.9) Basophils # 0.05 (0-0.4) Sodium (137-145) mmol/L Potassium (3.5-5.1) mmol/L Chloride (98-107) mmol/L Carbon Dioxide (22-30) mmol/L Anion Gap (5-15) MEQ/L BUN (7-17) mg/dL Creatinine (0.52-1.04) mg/dL Estimated GFR ML/MIN Glucose (74-106) mg/dL Lactic Acid 0.8 (0.4-2.0) Calcium (8.4-10.2) mg/dL Total Bilirubin (0.2-1.3) mg/dL AST (14-36) U/L ALT (0-35) U/L Alkaline Phosphatase (38-126) U/L Serum Total Protein (6.3-8.2) g/dL Albumin (3.5-5.0) g/dL Serum , Qual NEGATIVE (Negative) Stool Occult Blood (Negative) ABO Group Rh Factor Antibody Screen (NEGATIVE) - Progress Progress: improved Counseled pt/family regarding: lab results, diagnosis, need for follow-up, rad results - Departure Time of Disposition: 00:32 Departure Disposition: Home Clinical Impression: Rectal bleed Condition: Stable Critical Care Time: No Referrals: PENNY SOL [Primary Care Provider] - Additional Instructions: You had a single episode of rectal bleeding at noon today. Fortunately you've had no other episodes all day. You were given Protonix 40 mg and fluids by IV in the ER. You were also given Zofran 4 mg by IV. You were offered to be admitted for possible colonoscopy in the morning but I think you made a good decision to go home and see Dr. Sol in the morning. Take Tylenol 1000 mg every 8 hours as needed for pain and discomfort.
[2017-09-08] MEDS ORDERED: Zofran 4 MG/2 ML VIAL IV ONE (22:06)
[2017-09-08] MEDS ORDERED: PROTONIX 40 MG IV IV ONE ×2 (22:06→22:10)
[2017-09-08] MEDS ORDERED: Sodium Chloride 0.9% 1000 ML 1,000 ML IV STA (22:06)
[2017-09-08] MEDS ORDERED: Zofran 4 MG/2 ML VIAL ONE (22:10)
[2017-09-08] MEDS ORDERED: Sodium Chloride 0.9% 1000 ML 1,000 ML ONE (22:10)
[2017-09-08 22:14] LABS: BASOPHIL % 0.6 % (0.0-0.4); Basophil (Absolute #) 0.05 (0-0.4); Eosinophil % 0.8 % (0.00-5.0); Eosinophil (Absolute #) 0.07 (0-0.5); Granulocyte Absolute (ANC) 4.54 (1.4-6.9); Granulocytes % 51.3 % (36.0-66.0); Hematocrit 41.3 % (35-47); Hemoglobin 14.3 gm/dl (12.0-16.0); Lymphocyte (Absolute #) 3.57 (1.0-4.6); Lymphocytes % 40.3 % (24.0-44.0); Mean Cell Volume 89.6 fl (78-100); Mean Corpuscular Hgb Concent. 34.6 g/dl (32-36); Mean Platelet Volume 9.6 fl (6-9.5); Monocyte (Absolute #) 0.62 (0.0-1.3); Platelet Count 285 K/mm3 (150-450); Red Blood Count 4.61 M/mm3 (4.1-5.4); Red Cell Distribution Width 12.7 % (11.5-14.0); White Blood Count 8.9 K/mm3 (4.0-10.5)
[2017-09-08 22:50] LABS: ALBUMIN 4.3 g/dL (3.5-5.0); ALKALINE PHOSPHATASE 79 U/L (38-126); ANION GAP 14.8 MEQ/L (5-15); BLOOD UREA NITROGEN 14 mg/dL (7-17); CHLORIDE 107 mmol/L (98-107); Calcium 9.5 mg/dL (8.4-10.2); Carbon Dioxide 21 mmol/L (22-30); Creatinine 1 0.71 mg/dL (0.52-1.04); Glucose 91 mg/dL (74-106); Potassium 3.9 mmol/L (3.5-5.1); SGOT/AST 23 U/L (14-36); SGPT/ALT 20 U/L (0-35); SODIUM 139 mmol/L (137-145); Total Protein 7.2 g/dL (6.3-8.2)
[2017-09-08 23:25] LABS: ABO TYPING O
[2017-09-08 23:26] LABS: Antibody Screen NEGATIVE (NEGATIVE); RH TYPING POSITIVE
[2017-09-09] MEDS ORDERED: TYLENOL EXTRA STRENGTH 500 MG PO STA (00:37)
[2017-09-09] MEDS ORDERED: TYLENOL EXTRA STRENGTH 500 MG ONE (00:39)
[2017-09-09 00:47] VITALS: BP 120/76; PULSE 90; O2SAT 98
--- NOTE | 2017-09-09 09:03 | XRAY ---
Indication: Abdominal pain and bloody stools. Multiple contiguous axial images obtained through the abdomen and pelvis without contrast as ordered. Comparison: July 22, 2017. Lung bases remain clear. Heart is not enlarged. Noncontrasted stomach and bowel loops again nonobstructed. Normal air-filled appendix. Again previous cholecystectomy. No free fluid/air. Remaining liver, pancreas, spleen, adrenal glands, kidneys, ureters, bladder, uterus, and aorta appear unremarkable for noncontrast exam. Osseous structures intact. No ventral or inguinal hernias. Impression: CT abdomen/pelvis without contrast exam is again negative. Comment: Preliminary interpretation was made by [facility]. No discrepancy. CT DI 16.64
== END 2017-09-09 00:47 | disposition home or self-care (01) ==
LOC: ED 21:23
DX: K62.5 Hemorrhage of anus and rectum (principal); R10.84 Generalized abdominal pain; R11.0 Nausea; R42 Dizziness and giddiness; Z79.899 Other long term (current) drug therapy
CPT/HCPCS: 36000; 36415; 74176; 80053; 82272; 83605; 84703; 85025; 86850; 86900; 86901; 96360; 96374; 96375; 99284; J2405; A9270-GY

== ENCOUNTER 2018-03-08 22:21 | Emergency (ER) | payer OTHER ==
[2018-03-08] MEDS ORDERED: TORAdol 30 mg Injection IM ONE (22:49)
[2018-03-08] MEDS ORDERED: TORAdol 30 mg Injection ONE (22:54)
--- NOTE | 2018-03-08 22:55 | ERPHSYRPT ---
- History of Present Illness Time Seen by Provider: 03/08/18 22:50 Source: patient Exam Limitations: no limitations Patient Subjective Stated Complaint: pt is alert and oriented. pt is brought in by wheelchair. pt comes in because she states "she was running after friends and fell in a mud puddle." pt states shes's having pain in her right ankle and foot and her right wrist. no swelling or discoloration noted to her ankle or foot. some tenderness noted on the lateral side. pt able to feel toes, cap refil <3. pt has reddened area on her right wrist and a small bruise. pt states she cannot move her wrist due to pain but denies loss of sensation. extremeties warm and cap refill <3 seconds. Triage Nursing Assessment: see above Physician History: This is a 22-year-old white female with history of migraines, asthma, GERD, gallbladder disease, irritable bowel, depression, Crohn's Patient arrives with complaint of pain in her right foot right ankle right hand right wrist. Patient states that she was running and fell onto a blood puddle this occurred about 7:00. She has no head injury no neck pain denies any pain other than her right hand right wrist right foot right ankle. Past medical history includes migraines, asthma, GERD, gallbladder disease, irritable bowel disease, depression, Crohn's, cysts on her ovaries. Past surgical history includes cholecystectomy, right rotator cuff, myringotomy tubes, ovarian cyst, colonoscopy, . Social history denies tobacco use denies illicit drug use admits to rare alcohol use. Timing/Duration: today (7:00 this evening) Severity: moderate Associated Symptoms: No nausea, No vomiting, No abdominal pain, No shortness of breath, No heartburn, No diaphoresis, No cough, No chills, No chest pain, No fever, No headaches, No loss of appetite, No malaise, No rash, No syncope, No seizure, No weakness Allergies/Adverse Reactions: adhesive tape Allergy (Intermediate, Verified 09/08/17 21:37) Blisters [place] Allergy (Verified 09/08/17 21:37) paroxetine HCl [From Paxil] Adverse Reaction (Verified 09/08/17 21:37) Nausea Home Medications: Fluticasone Propionate [Flonase NASAL] 1 spray NS DAILY 07/21/17 [History] Ranitidine HCl [Zantac] 150 mg PO BID 07/21/17 [History] Hx Tetanus, Diphtheria Vaccination/Date Given: Yes Hx Influenza Vaccination/Date Given: No Hx Pneumococcal Vaccination/Date Given: No Immunizations Up to Date: Yes - Review of Systems Constitutional: No Fever, No Chills Eyes: No Symptoms Ears, Nose, & Throat: No Symptoms Respiratory: No Cough, No Dyspnea Cardiac: No Chest Pain, No Edema, No Syncope Abdominal/Gastrointestinal: No Abdominal Pain, No Nausea, No Vomiting, No Diarrhea Genitourinary Symptoms: No Dysuria Musculoskeletal: Arthralgias, Fall, Injury, Joint Pain, Other (right wrist, right hand, right ankle, right foot pain), No Back Pain, No Neck Pain, No Deformity, No Joint Redness, No Joint Swelling, No Myalgias Skin: No Rash Neurological: No Dizziness, No Focal Weakness, No Sensory Changes Psychological: No Symptoms Endocrine: No Symptoms All Other Systems: Reviewed and Negative - Past Medical History Pertinent Past Medical History: Yes Neurological History: Migraines ENT History: No Pertinent History Cardiac History: No Pertinent History Respiratory History: Asthma Endocrine Medical History: No Pertinent History Musculoskeletal History: No Pertinent History GI Medical History: Crohns Disease, GERD, Gallbladder Disease, Irritable Bowel History: No Pertinent History Psycho-Social History: Depression Female Reproductive Disorders: Other Other Medical History: Reports Crohns; cysts on ovaries - Past Surgical History Past Surgical History: Yes Neuro Surgical History: No Pertinent History Cardiac: No Pertinent History Respiratory: No Pertinent History Gastrointestinal: Cholecystectomy Genitourinary: Other Musculoskeletal: Orthopedic Surgery Female Surgical History: Section Other Surgical History: right rotator cuff repair. Ear tubes bilat,ovarian cyst 2017. ovarian cyst removal jun 2016. colonscopy jun 2016 - Social History Smoking Status: Former smoker How long have you smoked: 1 month Exposure to second hand smoke: No Alcohol Use: None Drug Use: none Patient Lives Alone: No Significant Family History: no pertinent family hx - Female History Hx Now: No - Nursing Vital Signs Nursing Vital Signs: Initial Vital Signs Temperature 98.5 F 03/08/18 22:22 Pulse Rate 125 H 03/08/18 22:22 Respiratory Rate 18 03/08/18 22:22 Blood Pressure 119/79 03/08/18 22:22 O2 Sat by Pulse Oximetry 98 03/08/18 22:22 Pain Scale Pain Intensity 10 - Physical Exam General Appearance: no apparent distress, alert Eye Exam: PERRL/EOMI, eyes nml inspection Ears, Nose, Throat Exam: normal ENT inspection, TMs normal, pharynx normal, moist mucous membranes Neck Exam: normal inspection, non-tender, supple, full range of motion Respiratory Exam: normal breath sounds, lungs clear, No respiratory distress Cardiovascular Exam: regular rate/rhythm, normal heart sounds, normal peripheral pulses Gastrointestinal/Abdomen Exam: soft, normal bowel sounds, No tenderness, No mass Back Exam: normal inspection, normal range of motion, No CVA tenderness, No vertebral tenderness Extremity Exam: pelvis stable, No normal inspection (right hand, right wrist right ankle and right spinner tender with movement and palpation.) Neurologic Exam: alert, oriented x 3, cooperative, third cook II-XII nml as tested, normal mood/affect, nml cerebellar function, nml station & gait, sensation nml, No motor deficits Skin Exam: normal color, warm, dry, No rash Lymphatic Exam: No adenopathy SpO2 Interpretation: normal (98%) SpO2: 98 Oxygen Delivery: Room Air - Course Nursing assessment & vital signs reviewed: Yes - Radiology Exams Right Wrist X-ray Interpretation: Negative, No Fracture, No Subluxation Right Hand X-ray Interpretation: Interpreted by me, Negative, No Fracture, No Subluxation Right Ankle X-ray Interpretation: Interpreted by me, Negative, No Fracture, No Subluxation Right Foot X-ray Interpretation: Interpreted by me, Negative, No Fracture, No Subluxation Ordered Tests: Active Orders 24 hr Category Date Time Status [place] Bandage Application -[facility] STAT Care 03/08/18 23:20 Active Splint STAT Care 03/08/18 23:20 Active Splint STAT Care 03/08/18 23:21 Active ANKLE (3 VIEWS) Stat Exams 03/08/18 22:49 Ordered FOOT (MINIMUM 3 VIEWS) Stat Exams 03/08/18 22:49 Ordered HAND (MINIMUM 3 VIEWS) Stat Exams 03/08/18 22:48 Ordered WRIST (MIN 3 VIEWS) Stat Exams 03/08/18 22:48 Ordered Medication Summary Discontinued Medications Generic Name Dose Route Start Last Admin Trade Name Freq PRN Reason Stop Dose Admin Ketorolac Tromethamine 60 mg 03/08/18 22:49 03/08/18 22:58 Toradol 30 Mg Injection IM 03/08/18 22:50 60 mg STAT ONE Administration Ketorolac Tromethamine Confirm 03/08/18 22:54 Toradol 30 Mg Injection Administered 03/08/18 22:55 Dose 60 mg .ROUTE .STK-MED ONE - Progress Progress: improved Progress Note: 03/08/18 22:55 22-year-old white female arrives with complaint of pain in her right hand right wrist, right foot right ankle after falling while running at approximately 9:00 this evening. She has pain in her right hand right wrist right foot right ankle with movement and palpation. I do not see obvious edema. Pulses are equal and symmetrical 2 over 4 upper and lower good capillary refill to all extremities. Patient is on Depo-Provera shots last one was one and a half months ago. We'll go ahead and give patient Toradol injection obtain x-rays of patient right ankle right foot right hand right wrist. 03/08/18 23:25 X-rays (my read) right foot, right ankle, right wrist, right hand all negative. Will place Jasper wrap on right ankle postop shoe right foot right wristlet. Will write for a small amount of [place] for pain this is selected because the patient's history of Crohn's. Plan discharge follow-up with family if symptoms worse no better in 48 hours or persist longer than one week. - Departure Time of Disposition: 23:27 Departure Disposition: Home Clinical Impression: Right foot pain Accidental fall Qualifiers: Encounter type: initial encounter Qualified Code(s): W19.XXXA - Unspecified fall, initial encounter Contusion of right hand Qualifiers: Encounter type: initial encounter Qualified Code(s): S60.221A - Contusion of right hand, initial encounter Strain of right wrist Qualifiers: Encounter type: initial encounter Qualified Code(s): S66.911A - Strain of unspecified muscle, fascia and tendon at wrist and hand level, right hand, initial encounter Right ankle strain Qualifiers: Encounter type: initial encounter Qualified Code(s): S96.911A - Strain of unspecified muscle and tendon at ankle and foot level, right foot, initial encounter Condition: Fair Critical Care Time: No Referrals: PENNY CHENG [Primary Care Provider] - Additional Instructions: Return home. Ice to right hand wrist and foot and ankle 24-48 hours. Elevate right ankle 24-48 hours. [place] as prescribed. Follow-up with your family doctor if symptoms are worse, no better in 48 hours, or persist longer than one week. Return for acute distress or for severe symptoms. Your x-rays have been preliminarily read they will be reread tomorrow. You'll be contacted if any discrepancies are noted. Prescriptions: Hydrocodone/Acetaminophen [[place] 5-325 Tablet] 1 tab PO Q4-6HPRN PRN #10 tablet MDD 6 tablets PRN Reason: Pain
[2018-03-08] MEDS ORDERED: NORCO 5/325 MG PO ONE (23:30)
[2018-03-08] MEDS ORDERED: NORCO 5/325 MG ONE (23:32)
[2018-03-08 23:54] VITALS: BP 118/67; PULSE 84; O2SAT 99
--- NOTE | 2018-03-09 08:44 | XRAY ---
Indication: Pain following fall. Comparison: February 09, 2016. 3 views of the right wrist demonstrates stable mild ulnar negative deviation. No new/acute bony, articular, or soft tissue abnormalities.
--- NOTE | 2018-03-09 08:46 | XRAY ---
Indication: Pain following fall. Comparison: None 3 views of the right ankle obtained. No bony, articular, or soft tissue abnormalities.
--- NOTE | 2018-03-09 08:46 | XRAY ---
Indication: Pain following fall. Comparison: None 3 views of the right hand obtained. No bony, articular, or soft tissue abnormalities. Wrist reported separately.
--- NOTE | 2018-03-09 08:46 | XRAY ---
Indication: Pain following fall. Comparison: None 3 nonweightbearing views of the right foot obtained. No bony, articular, or soft tissue abnormalities.
== END 2018-03-08 23:54 | disposition home or self-care (01) ==
LOC: ED 22:21
DX: M79.671 Pain in right foot (principal); W19.XXXA Unspecified fall, initial encounter; S60.221A Contusion of right hand, initial encounter; S66.911A Strain of unspecified muscle, fascia and tendon at wrist and hand level, right hand, initial encounter; S96.911A Strain of unspecified muscle and tendon at ankle and foot level, right foot, initial encounter; J45.909 Unspecified asthma, uncomplicated; K21.9 Gastro-esophageal reflux disease without esophagitis; K50.90 Crohn's disease, unspecified, without complications; F32.9 Major depressive disorder, single episode, unspecified; N83.209 Unspecified ovarian cyst, unspecified side; W01.198A Fall on same level from slipping, tripping and stumbling with subsequent striking against other object, initial encounter; K58.9 Irritable bowel syndrome, unspecified
CPT/HCPCS: 73110; 73130; 73610; 73630; 96372; 99284; A4570; J1885; A9270-GY

== ENCOUNTER 2018-05-06 14:22 | Observation (INO) | payer OTHER ==
--- NOTE | 2018-05-06 14:48 | ERPHSYRPT ---
- History of Present Illness Time Seen by Provider: 05/06/18 14:48 Historian: patient Exam Limitations: no limitations Patient Subjective Stated Complaint: pt here for pain to chest that radiates to right arm, she states the pain woke her up at 0800 today and unrelieved by motrin, denies any cough,fever. or n/v/d Triage Nursing Assessment: pt alert, moaning out, resp easy, skin w/d/p, chest clear, no edema noted Physician History: The patient is a 22-year-old female with a family member complaining that epigastric pain and low central chest pain woke her up at 8:00 this morning. The pain radiates through to her back. The pain is worsened by moving her right arm, coughing, moving her trunk, and taking a deep breath. She denies vomiting. She is mildly nauseated. She denies shortness of breath. She has a past medical history of GERD and takes Zantac. She did not wake up with a sour taste in her mouth. Her past medical history is significant for GERD, Crohn's, migraine headaches, and cholecystectomy. Timing/Duration: today, hour(s) (7), sudden Activities at Onset: sleep Quality: sharpness Location: abdomen Chest Pain Radiation: back Severity of Pain-Max: severe Severity of Pain-Current: severe Modifying Factors: Improves With: nothing Associated Symptoms: nausea, hurts to breathe Prior Chest Pain/Cardiac Workup: no prior chest pain Nitro Today/Relief: no nitro taken today Aspirin Treatment Today: no aspirin today Allergies/Adverse Reactions: adhesive tape Allergy (Intermediate, Verified 05/06/18 14:31) Blisters white [place] Allergy (Verified 05/06/18 14:31) paroxetine HCl [From Paxil] Adverse Reaction (Verified 05/06/18 14:31) Nausea Home Medications: Fluticasone Propionate [Flonase NASAL] 1 spray NS DAILY 07/21/17 [History] Ranitidine HCl [Zantac] 150 mg PO BID 07/21/17 [History] Hx Tetanus, Diphtheria Vaccination/Date Given: Yes Hx Influenza Vaccination/Date Given: Yes Hx Pneumococcal Vaccination/Date Given: No Immunizations Up to Date: Yes - Review of Systems Constitutional: No Fever, No Chills Eyes: No Symptoms Ears, Nose, & Throat: No Symptoms Respiratory: No Cough, No Dyspnea Cardiac: Chest Pain Abdominal/Gastrointestinal: Abdominal Pain, Nausea Genitourinary Symptoms: No Dysuria Musculoskeletal: No Back Pain, No Neck Pain Skin: No Rash Neurological: No Dizziness, No Focal Weakness, No Sensory Changes Psychological: No Symptoms Endocrine: No Symptoms Hematologic/Lymphatic: No Symptoms Immunological/Allergic: No Symptoms All Other Systems: Reviewed and Negative - Past Medical History Pertinent Past Medical History: Yes Neurological History: Migraines ENT History: No Pertinent History Cardiac History: No Pertinent History Respiratory History: Asthma Endocrine Medical History: No Pertinent History Musculoskeletal History: No Pertinent History GI Medical History: Crohns Disease, GERD, Gallbladder Disease, Irritable Bowel History: No Pertinent History Psycho-Social History: Depression Female Reproductive Disorders: Other Other Medical History: Reports Crohns; cysts on ovaries - Past Surgical History Past Surgical History: Yes Neuro Surgical History: No Pertinent History Cardiac: No Pertinent History Respiratory: No Pertinent History Gastrointestinal: Cholecystectomy Genitourinary: Other Musculoskeletal: Orthopedic Surgery Female Surgical History: Section Other Surgical History: right rotator cuff repair. Ear tubes bilat,ovarian cyst 2016. ovarian cyst removal jun 2016. colonscopy jun 2016 - Social History Smoking Status: Current every day smoker How long have you smoked: 1 month Exposure to second hand smoke: Yes Alcohol Use: None Drug Use: none Patient Lives Alone: No Significant Family History: no pertinent family hx - Female History Hx Last Menstrual Period: unsure on bc Hx Now: No - Nursing Vital Signs Nursing Vital Signs: Initial Vital Signs Temperature 98.9 F 05/06/18 14:24 Pulse Rate 100 H 05/06/18 14:24 Respiratory Rate 18 05/06/18 14:24 Blood Pressure 125/85 05/06/18 14:24 O2 Sat by Pulse Oximetry 99 05/06/18 14:24 Pain Scale Pain Intensity 0 - Physical Exam General Appearance: mild distress Eye Exam: PERRL/EOMI, eyes nml inspection Ears, Nose, Throat Exam: normal ENT inspection, moist mucous membranes Neck Exam: normal inspection, non-tender, supple, full range of motion Respiratory Exam: normal breath sounds, chest tenderness, lungs clear, No respiratory distress Cardiovascular Exam: regular rate/rhythm, normal heart sounds Gastrointestinal/Abdomen Exam: tenderness (epigastric) Pelvic Exam: not done Rectal Exam: not done Back Exam: normal inspection, No CVA tenderness, No vertebral tenderness Extremity Exam: normal inspection, normal range of motion Neurologic Exam: alert, oriented x 3, cooperative, normal mood/affect, sensation nml, No motor deficits Skin Exam: normal color, warm, dry SpO2 Interpretation: normal SpO2: 99 Oxygen Delivery: Room Air - Course EKG Interpreted by Me: RATE, Sinus Rhythm, NORMAL AXIS, NORMAL INTERVALS, NORMAL QRS, NORMAL ST-T, Other (no change in EKG from EKG 07/21/17.) Ordered Tests: Active Orders 24 hr Category Date Time Status EKG-ER Only STAT Care 05/06/18 15:04 Active IV Insertion STAT Care 05/06/18 15:04 Active CHEST 2 VIEWS (PA AND LAT) Stat Exams 05/06/18 15:04 Completed CBC W DIFF Stat Lab 05/06/18 14:45 Completed CMP Stat Lab 05/06/18 14:45 Completed LIPASE Stat Lab 05/06/18 14:45 Completed Lactic Acid Stat Lab 05/06/18 15:30 Completed TROPONIN Q3H Lab 05/06/18 15:15 Completed TROPONIN Q3H Lab 05/06/18 18:15 Ordered TROPONIN Q3H Lab 05/06/18 21:15 Ordered TROPONIN Q3H Lab 05/07/18 00:15 Ordered TROPONIN Q3H Lab 05/07/18 03:15 Ordered Medication Summary Discontinued Medications Generic Name Dose Route Start Last Admin Trade Name Freq PRN Reason Stop Dose Admin Al Hydrox/Mg Hydrox/Simethicone Confirm 05/06/18 15:14 Maalox Es 30 Ml Unit Dose Administered 05/06/18 15:15 Dose 30 ml .ROUTE .STK-MED ONE Famotidine 20 mg 05/06/18 15:04 05/06/18 15:17 Pepcid 20 Mg Vial IV 05/06/18 15:05 20 mg STAT ONE Administration Famotidine Confirm 05/06/18 15:13 Pepcid 20 Mg Vial Administered 05/06/18 15:14 Dose 20 mg IV .STK-MED ONE Sodium Chloride 1,000 mls @ 999 mls/hr 05/06/18 15:04 05/06/18 15:16 Sodium Chloride 0.9% 1000 Ml IV 05/06/18 16:04 999 mls/hr .Q1H1M STA Administration Sodium Chloride Confirm 05/06/18 15:14 Sodium Chloride 0.9% 1000 Ml Administered 05/06/18 15:15 Dose 1,000 mls @ ud .ROUTE .STK-MED ONE Lidocaine HCl Confirm 05/06/18 15:13 Xylocaine Hcl Viscous * Administered 05/06/18 15:14 Dose 15 ml .ROUTE .STK-MED ONE Magnesium Hydroxide 45 ml 05/06/18 15:04 05/06/18 15:16 Gi Cocktail 45 Ml (Maalox/Lidocaine) PO 05/06/18 15:05 45 ml STAT ONE Administration Ondansetron HCl 4 mg 05/06/18 15:04 05/06/18 15:17 Zofran 4 Mg/2 Ml Vial IV 05/06/18 15:05 4 mg STAT ONE Administration Ondansetron HCl Confirm 05/06/18 15:13 Zofran 4 Mg/2 Ml Vial Administered 05/06/18 15:14 Dose 4 mg .ROUTE .STK-MED ONE Lab/Rad Data: Laboratory Result Diagrams 05/06/18 14:45 05/06/18 14:45 Laboratory Results 05/06/18 05/06/18 05/06/18 Range/Units 15:30 15:15 14:45 WBC (4.0-10.5) K/mm3 RBC (4.1-5.4) M/mm3 Hgb (12.0-16.0) gm/dl Hct (35-47) % MCV (78-100) fl MCH (26-32) pg MCHC (32-36) g/dl RDW (11.5-14.0) % Plt Count (150-450) K/mm3 MPV (6-9.5) fl Gran % (36.0-66.0) % Eos # (Auto) (0-0.5) Absolute Lymphs (auto) (1.0-4.6) Absolute Monos (auto) (0.0-1.3) Lymphocytes % (24.0-44.0) % Monocytes % (0.0-12.0) % Eosinophils % (0.00-5.0) % Basophils % (0.0-0.4) % Absolute Granulocytes (1.4-6.9) Basophils # (0-0.4) Sodium 141 (137-145) mmol/L Potassium 3.7 (3.5-5.1) mmol/L Chloride 109 H (98-107) mmol/L Carbon Dioxide 23 (22-30) mmol/L Anion Gap 12.6 (5-15) MEQ/L BUN 14 (7-17) mg/dL Creatinine 0.69 (0.52-1.04) mg/dL Estimated GFR > 60.0 ML/MIN Glucose 82 (74-106) mg/dL Lactic Acid 1.2 (0.4-2.0) Calcium 9.2 (8.4-10.2) mg/dL Total Bilirubin 0.70 (0.2-1.3) mg/dL AST 20 (14-36) U/L ALT 17 (0-35) U/L Alkaline Phosphatase 81 (38-126) U/L Troponin I < 0.012 (0.000-0.034) ng/mL Serum Total Protein 7.2 (6.3-8.2) g/dL Albumin 4.3 (3.5-5.0) g/dL Lipase 76 (23-300) U/L 05/06/18 Range/Units 14:45 WBC 7.4 (4.0-10.5) K/mm3 RBC 4.18 (4.1-5.4) M/mm3 Hgb 13.6 (12.0-16.0) gm/dl Hct 39.8 (35-47) % MCV 95.2 (78-100) fl MCH 32.5 H (26-32) pg MCHC 34.2 (32-36) g/dl RDW 12.9 (11.5-14.0) % Plt Count 258 (150-450) K/mm3 MPV 9.8 H (6-9.5) fl Gran % 58.5 (36.0-66.0) % Eos # (Auto) 0.13 (0-0.5) Absolute Lymphs (auto) 2.33 (1.0-4.6) Absolute Monos (auto) 0.59 (0.0-1.3) Lymphocytes % 31.4 (24.0-44.0) % Monocytes % 8.0 (0.0-12.0) % Eosinophils % 1.8 (0.00-5.0) % Basophils % 0.3 (0.0-0.4) % Absolute Granulocytes 4.35 (1.4-6.9) Basophils # 0.02 (0-0.4) Sodium (137-145) mmol/L Potassium (3.5-5.1) mmol/L Chloride (98-107) mmol/L Carbon Dioxide (22-30) mmol/L Anion Gap (5-15) MEQ/L BUN (7-17) mg/dL Creatinine (0.52-1.04) mg/dL Estimated GFR ML/MIN Glucose (74-106) mg/dL Lactic Acid (0.4-2.0) Calcium (8.4-10.2) mg/dL Total Bilirubin (0.2-1.3) mg/dL AST (14-36) U/L ALT (0-35) U/L Alkaline Phosphatase (38-126) U/L Troponin I (0.000-0.034) ng/mL Serum Total Protein (6.3-8.2) g/dL Albumin (3.5-5.0) g/dL Lipase (23-300) U/L - Progress Progress: unchanged Progress Note: 05/06/18 17:15 GI cocktail was not helpful. Discussed with : Asael Will see patient in: hospital (observation) Counseled pt/family regarding: lab results, diagnosis, rad results - Departure Time of Disposition: 17:16 Departure Disposition: Observation (per Dr Vyas) Clinical Impression: Chest pain Condition: Stable Critical Care Time: No Referrals: PENNY CHENG [Primary Care Provider] -
[2018-05-06] MEDS ORDERED: Zofran 4 MG/2 ML VIAL IV ONE (15:04)
[2018-05-06] MEDS ORDERED: GI COCKTAIL 45 ML (Maalox/Lidocaine) PO ONE (15:04)
[2018-05-06] MEDS ORDERED: Pepcid 20 MG VIAL IV ONE ×2 (15:04→15:13)
[2018-05-06] MEDS ORDERED: Sodium Chloride 0.9% 1000 ML 1,000 ML IV STA (15:04)
[2018-05-06] MEDS ORDERED: Zofran 4 MG/2 ML VIAL ONE (15:13)
[2018-05-06] MEDS ORDERED: XYLOCAINE HCl Viscous ONE (15:13)
[2018-05-06] MEDS ORDERED: MAALOX ES 30 ML UNIT DOSE ONE (15:14)
[2018-05-06] MEDS ORDERED: Sodium Chloride 0.9% 1000 ML 1,000 ML ONE (15:14)
[2018-05-06 15:33] LABS: BASOPHIL % 0.3 % (0.0-0.4); Basophil (Absolute #) 0.02 (0-0.4); Eosinophil % 1.8 % (0.00-5.0); Eosinophil (Absolute #) 0.13 (0-0.5); Granulocyte Absolute (ANC) 4.35 (1.4-6.9); Granulocytes % 58.5 % (36.0-66.0); Hematocrit 39.8 % (35-47); Hemoglobin 13.6 gm/dl (12.0-16.0); Lymphocyte (Absolute #) 2.33 (1.0-4.6); Lymphocytes % 31.4 % (24.0-44.0); Mean Cell Volume 95.2 fl (78-100); Mean Corpuscular Hemoglobin 32.5 pg (26-32); Mean Corpuscular Hgb Concent. 34.2 g/dl (32-36); Mean Platelet Volume 9.8 fl (6-9.5); Monocyte (Absolute #) 0.59 (0.0-1.3); Platelet Count 258 K/mm3 (150-450); Red Blood Count 4.18 M/mm3 (4.1-5.4); Red Cell Distribution Width 12.9 % (11.5-14.0); White Blood Count 7.4 K/mm3 (4.0-10.5)
[2018-05-06 15:45] LABS: ALBUMIN 4.3 g/dL (3.5-5.0); ALKALINE PHOSPHATASE 81 U/L (38-126); ANION GAP 12.6 MEQ/L (5-15); BLOOD UREA NITROGEN 14 mg/dL (7-17); CHLORIDE 109 mmol/L (98-107); Calcium 9.2 mg/dL (8.4-10.2); Carbon Dioxide 23 mmol/L (22-30); Creatinine 1 0.69 mg/dL (0.52-1.04); Glucose 82 mg/dL (74-106); LIPASE 76 U/L (23-300); Potassium 3.7 mmol/L (3.5-5.1); SGOT/AST 20 U/L (14-36); SGPT/ALT 17 U/L (0-35); SODIUM 141 mmol/L (137-145); Total Protein 7.2 g/dL (6.3-8.2)
--- NOTE | 2018-05-06 16:37 | XRAY ---
Indication: Chest pain. Comparison: July 21, 2017. PA/lateral chest again demonstrates normal heart, lungs, and bony thorax. Incidental bilateral nipple shadows.
[2018-05-06] MEDS ORDERED: Nitrostat 0.4 MG (ED) SL ONE ×2 (17:14→17:20)
[2018-05-06] MEDS ORDERED: BABY ASPIRIN 81 MG CHEW PO ONE (17:14)
[2018-05-06] MEDS ORDERED: BABY ASPIRIN 81 MG CHEW ONE (17:20)
[2018-05-06] MEDS ORDERED: MAALOX ES 30 ML UNIT DOSE PO PRN (17:49)
[2018-05-06] MEDS ORDERED: MILK OF MAGNESIA 30 ML PO PRN (17:49)
[2018-05-06] MEDS ORDERED: TYLENOL 325 MG PO PRN (17:49)
[2018-05-06] MEDS ORDERED: Zofran 4 MG/2 ML VIAL IV PRN (17:49)
[2018-05-06] MEDS ORDERED: Senokot-S Tablet PO PRN (17:49)
[2018-05-06] MEDS: NORCO 5/325 MG PO PRN (21:22)
[2018-05-06] MEDS: Pepcid 20 MG PO SCH (21:24)
[2018-05-06] MEDS: Nitrostat 0.4 MG Tablet SL PRN ×2 (22:02→22:07)
[2018-05-07] MEDS: NORCO 5/325 MG PO PRN (03:14)
[2018-05-07] MEDS: Nitrostat 0.4 MG Tablet SL PRN (03:52)
[2018-05-07 04:58] VITALS: PULSE 87
[2018-05-07 05:23] LABS: Risk Ratio 4.6
[2018-05-07 07:29] VITALS: BP 96/52
[2018-05-07 07:38] VITALS: O2SAT 94
[2018-05-07] MEDS ORDERED: solu-MEDROL 40 MG IV ONE (08:41)
--- NOTE | 2018-05-07 08:46 | PCM.SSS ---
History of Present Illness - Chief Complaint Chief Complaint: CHEST PAIN History of Present Illness: is a 22 year old female pt of mine from [facility] with chronic abdominal pain who was admitted through ER last night with chest pain. She awoke at 8 am with 10/10 substernal chest pain radiating to L arm; + N, no diaphoresis, no vomiting, no SOB. Worse with moving and breathing, eating or drinking. At 2 pm she came to ER. Pain was still 10/10 and remains so until she has her norco and nitro. In ER her troponin was negative. CMP normal aside from Cl of 109. CBC nl. EKG normal. CXR normal. She was admitted for further observation. Troponins neg x 5 and EKG continues to be normal. She does not smoke nicotine. She denies ever, even one time, trying cocaine. - Review of Systems Cardiac: Chest Pain Abdominal/Gastrointestinal: Abdominal Pain (chronic; nothing new) Psychological: No Suicidal Ideations Medications & Allergies Home Medications: Home Medication List Fluticasone Propionate [Flonase NASAL] 1 spray NS DAILY 07/21/17 [History Confirmed 05/06/18] Ranitidine HCl [Zantac] 150 mg PO BID 07/21/17 [History Confirmed 05/06/18] Hydrocodone/Acetaminophen [[place] 5-325 Tablet] 1 tab PO Q4-6HPRN PRN #10 tablet MDD 6 tablets 03/08/18 [Rx Confirmed 05/06/18] Methylprednisolone Packet [Medrol Dosepack] 4 mg PO UD #30 packet [Rx] Omeprazole 20 mg PO DAILY #10 capsule. 05/07/18 [Rx] Allergies/Adverse Reactions: Allergies Allergy/AdvReac Type Severity Reaction Status Date / Time adhesive tape Allergy Intermediate Blisters Verified 05/06/18 14:31 [place] Allergy Verified 05/06/18 14:31 paroxetine HCl [From Paxil] AdvReac Nausea Verified 05/06/18 14:31 - Past Medical History Past Medical History: Yes Neurological History: Migraines ENT History: No Pertinent History Cardiac History: No Pertinent History Respiratory History: Asthma Endocrine Medical History: No Pertinent History Musculoskelatal History: No Pertinent History GI Medical History: Crohns Disease, GERD, Gallbladder Disease, Irritable Bowel History: No Pertinent History Pyscho-Social History: Depression Reproductive Disorders: Other Comment: Reports Crohns; cysts on ovaries - Female History Hx Last Menstrual Period: unsure on bc Are you now?: No - Past Surgical History Past Surgical History: Yes Neuro Surgical History: No Pertinent History Cardiac History: No Pertinent History Respiratory Surgery: No Pertinent History GI Surgical History: Cholecystectomy Genitourinary Surgical Hx: Other Musculskeletal Surgical Hx: Orthopedic Surgery Female Surgical History: Section Other Surgical History: right rotator cuff repair. Ear tubes bilat,ovarian cyst 2017. ovarian cyst removal jun 2016. colonscopy jun 2016 - Social History Smoking Status: Current every day smoker How long have you smoked: 1 month Exposure to second hand smoke: Yes Alcohol: Rarely Drug Use: none Significant Family History: no pertinent family hx - Physical Exam Vital Signs: Vital Signs - 24 hr Temp Pulse Pulse Resp BP BP Pulse Ox 05/07/18 07:37 94 L 05/07/18 07:28 98.4 F 87 18 96/52 96 05/07/18 04:00 98.4 F 87 18 101/61 95 05/07/18 03:52 82 93/51 05/07/18 00:00 98.0 F 88 18 125/59 100 05/06/18 22:07 100 H 110/58 05/06/18 22:02 103 H 111/59 05/06/18 20:00 98.5 F 84 20 102/60 99 05/06/18 19:59 97 05/06/18 17:51 98.5 F 84 20 102/60 99 05/06/18 17:26 78 18 113/73 100 05/06/18 17:18 99 05/06/18 16:50 98 F 86 20 114/78 100 05/06/18 16:07 98.7 F 70 16 112/80 98 05/06/18 14:24 98.9 F 91 H 100 H 18 125/85 99 General Appearance: no apparent distress, alert Neurologic Exam: oriented x 3, cooperative Eye Exam: eyes nml inspection Ears, Nose, Throat Exam: moist mucous membranes Neck Exam: normal inspection, non-tender, No lymphadenopathy Respiratory Exam: normal breath sounds, lungs clear, other (chest quite ttp at mid L sternal border), No crackles/rales, No rhonchi, No wheezing Cardiovascular Exam: regular rate/rhythm, normal heart sounds, No murmur Gastrointestinal/Abdomen Exam: soft, normal bowel sounds, No tenderness, No distention, No mass, No guarding, No rebound Back Exam: normal inspection, No rash Extremity Exam: normal inspection, No pedal edema, No swelling Skin Exam: normal color, warm, dry, No rash Results - Labs Lab/Micro Results: Lab Results-Last 24 Hours 05/06/18 05/06/18 05/06/18 Range/Units 14:45 14:45 15:15 WBC 7.4 (4.0-10.5) K/mm3 RBC 4.18 (4.1-5.4) M/mm3 Hgb 13.6 (12.0-16.0) gm/dl Hct 39.8 (35-47) % MCV 95.2 (78-100) fl MCH 32.5 H (26-32) pg MCHC 34.2 (32-36) g/dl RDW 12.9 (11.5-14.0) % Plt Count 258 (150-450) K/mm3 MPV 9.8 H (6-9.5) fl Gran % 58.5 (36.0-66.0) % Eos # (Auto) 0.13 (0-0.5) Absolute Lymphs (auto) 2.33 (1.0-4.6) Absolute Monos (auto) 0.59 (0.0-1.3) Lymphocytes % 31.4 (24.0-44.0) % Monocytes % 8.0 (0.0-12.0) % Eosinophils % 1.8 (0.00-5.0) % Basophils % 0.3 (0.0-0.4) % Absolute Granulocytes 4.35 (1.4-6.9) Basophils # 0.02 (0-0.4) Sodium 141 (137-145) mmol/L Potassium 3.7 (3.5-5.1) mmol/L Chloride 109 H (98-107) mmol/L Carbon Dioxide 23 (22-30) mmol/L Anion Gap 12.6 (5-15) MEQ/L BUN 14 (7-17) mg/dL Creatinine 0.69 (0.52-1.04) mg/dL Estimated GFR > 60.0 ML/MIN Glucose 82 (74-106) mg/dL Lactic Acid (0.4-2.0) Calcium 9.2 (8.4-10.2) mg/dL Total Bilirubin 0.70 (0.2-1.3) mg/dL AST 20 (14-36) U/L ALT 17 (0-35) U/L Alkaline Phosphatase 81 (38-126) U/L Troponin I < 0.012 (0.000-0.034) ng/mL Serum Total Protein 7.2 (6.3-8.2) g/dL Albumin 4.3 (3.5-5.0) g/dL Triglycerides (30-150) mg/dL Cholesterol (50-200) mg/dL LDL Cholesterol (30-100) mg/dL HDL Cholesterol (40-60) mg/dL Heart Disease Risk Ratio Lipase 76 (23-300) U/L 05/06/18 05/06/18 05/06/18 Range/Units 15:30 18:15 21:40 WBC (4.0-10.5) K/mm3 RBC (4.1-5.4) M/mm3 Hgb (12.0-16.0) gm/dl Hct (35-47) % MCV (78-100) fl MCH (26-32) pg MCHC (32-36) g/dl RDW (11.5-14.0) % Plt Count (150-450) K/mm3 MPV (6-9.5) fl Gran % (36.0-66.0) % Eos # (Auto) (0-0.5) Absolute Lymphs (auto) (1.0-4.6) Absolute Monos (auto) (0.0-1.3) Lymphocytes % (24.0-44.0) % Monocytes % (0.0-12.0) % Eosinophils % (0.00-5.0) % Basophils % (0.0-0.4) % Absolute Granulocytes (1.4-6.9) Basophils # (0-0.4) Sodium (137-145) mmol/L Potassium (3.5-5.1) mmol/L Chloride (98-107) mmol/L Carbon Dioxide (22-30) mmol/L Anion Gap (5-15) MEQ/L BUN (7-17) mg/dL Creatinine (0.52-1.04) mg/dL Estimated GFR ML/MIN Glucose (74-106) mg/dL Lactic Acid 1.2 (0.4-2.0) Calcium (8.4-10.2) mg/dL Total Bilirubin (0.2-1.3) mg/dL AST (14-36) U/L ALT (0-35) U/L Alkaline Phosphatase (38-126) U/L Troponin I < 0.012 < 0.012 (0.000-0.034) ng/mL Serum Total Protein (6.3-8.2) g/dL Albumin (3.5-5.0) g/dL Triglycerides (30-150) mg/dL Cholesterol (50-200) mg/dL LDL Cholesterol (30-100) mg/dL HDL Cholesterol (40-60) mg/dL Heart Disease Risk Ratio Lipase (23-300) U/L 05/07/18 05/07/18 05/07/18 Range/Units 00:45 03:45 03:45 WBC (4.0-10.5) K/mm3 RBC (4.1-5.4) M/mm3 Hgb (12.0-16.0) gm/dl Hct (35-47) % MCV (78-100) fl MCH (26-32) pg MCHC (32-36) g/dl RDW (11.5-14.0) % Plt Count (150-450) K/mm3 MPV (6-9.5) fl Gran % (36.0-66.0) % Eos # (Auto) (0-0.5) Absolute Lymphs (auto) (1.0-4.6) Absolute Monos (auto) (0.0-1.3) Lymphocytes % (24.0-44.0) % Monocytes % (0.0-12.0) % Eosinophils % (0.00-5.0) % Basophils % (0.0-0.4) % Absolute Granulocytes (1.4-6.9) Basophils # (0-0.4) Sodium (137-145) mmol/L Potassium (3.5-5.1) mmol/L Chloride (98-107) mmol/L Carbon Dioxide (22-30) mmol/L Anion Gap (5-15) MEQ/L BUN (7-17) mg/dL Creatinine (0.52-1.04) mg/dL Estimated GFR ML/MIN Glucose (74-106) mg/dL Lactic Acid (0.4-2.0) Calcium (8.4-10.2) mg/dL Total Bilirubin (0.2-1.3) mg/dL AST (14-36) U/L ALT (0-35) U/L Alkaline Phosphatase (38-126) U/L Troponin I < 0.012 < 0.012 (0.000-0.034) ng/mL Serum Total Protein (6.3-8.2) g/dL Albumin (3.5-5.0) g/dL Triglycerides 89 (30-150) mg/dL Cholesterol 148 (50-200) mg/dL LDL Cholesterol 91 (30-100) mg/dL HDL Cholesterol 32 L (40-60) mg/dL Heart Disease Risk Ratio 4.6 Lipase (23-300) U/L - Radiology Impressions Radiology Exams & Impressions: Radiology Procedures Category Date Time Status CHEST 2 VIEWS (PA AND LAT) Stat Exams 05/06/18 15:04 Completed - Other Procedures and Tests Respiratory Therapy 05/08/18 05:00 EKG DAILY 05/09/18 05:00 EKG DAILY Assessment/Plan (1) Costochondral chest pain Current Visit: Yes Status: Acute Assessment & Plan: Try steroid for inflammation (pt avoiding NSAIDs for possible Crohn's disease). Code(s): R07.1 - CHEST PAIN ON BREATHING (2) Abdominal pain Current Visit: No Status: Acute Assessment & Plan: pain worse with eating /drinking - will schedule outpatient EGD. Code(s): R10.9 - UNSPECIFIED ABDOMINAL PAIN Hospital Summary - Hospital Course Hospital Course: Pt is 22 yo female pt with chronic GI issues admitted through ER with chest pain - CXR neg, CMP nl aside from Cl 109, CBC nl, troponins neg x 5. Never used cocaine. Worse pain with breathing, moving, eating, or drinking. On exam her sternal border is quite ttp on the left. Treating with steroid (pt on PPI) . Will have her RTC for EGD. - Vitals & Intake/Output Vital Signs: Vital Signs Temperature 98.4 F 05/07/18 07:28 Pulse Rate 87 05/07/18 07:28 Respiratory Rate 18 05/07/18 07:28 Blood Pressure 96/52 05/07/18 07:28 O2 Sat by Pulse Oximetry 94 L 05/07/18 07:37 Intake & Output: Intake & Output 05/04/18 05/05/18 05/06/18 05/07/18 11:59 11:59 11:59 11:59 Intake Total 1000 Balance 1000 Weight 66.5 kg - Lab Result Diagrams: 05/06/18 14:45 05/06/18 14:45 Lab Results-Last 24 Hrs: Lab Results-Last 24 Hours 05/06/18 05/06/18 05/06/18 Range/Units 14:45 14:45 15:15 WBC 7.4 (4.0-10.5) K/mm3 RBC 4.18 (4.1-5.4) M/mm3 Hgb 13.6 (12.0-16.0) gm/dl Hct 39.8 (35-47) % MCV 95.2 (78-100) fl MCH 32.5 H (26-32) pg MCHC 34.2 (32-36) g/dl RDW 12.9 (11.5-14.0) % Plt Count 258 (150-450) K/mm3 MPV 9.8 H (6-9.5) fl Gran % 58.5 (36.0-66.0) % Eos # (Auto) 0.13 (0-0.5) Absolute Lymphs (auto) 2.33 (1.0-4.6) Absolute Monos (auto) 0.59 (0.0-1.3) Lymphocytes % 31.4 (24.0-44.0) % Monocytes % 8.0 (0.0-12.0) % Eosinophils % 1.8 (0.00-5.0) % Basophils % 0.3 (0.0-0.4) % Absolute Granulocytes 4.35 (1.4-6.9) Basophils # 0.02 (0-0.4) Sodium 141 (137-145) mmol/L Potassium 3.7 (3.5-5.1) mmol/L Chloride 109 H (98-107) mmol/L Carbon Dioxide 23 (22-30) mmol/L Anion Gap 12.6 (5-15) MEQ/L BUN 14 (7-17) mg/dL Creatinine 0.69 (0.52-1.04) mg/dL Estimated GFR > 60.0 ML/MIN Glucose 82 (74-106) mg/dL Lactic Acid (0.4-2.0) Calcium 9.2 (8.4-10.2) mg/dL Total Bilirubin 0.70 (0.2-1.3) mg/dL AST 20 (14-36) U/L ALT 17 (0-35) U/L Alkaline Phosphatase 81 (38-126) U/L Troponin I < 0.012 (0.000-0.034) ng/mL Serum Total Protein 7.2 (6.3-8.2) g/dL Albumin 4.3 (3.5-5.0) g/dL Triglycerides (30-150) mg/dL Cholesterol (50-200) mg/dL LDL Cholesterol (30-100) mg/dL HDL Cholesterol (40-60) mg/dL Heart Disease Risk Ratio Lipase 76 (23-300) U/L 05/06/18 05/06/18 05/06/18 Range/Units 15:30 18:15 21:40 WBC (4.0-10.5) K/mm3 RBC (4.1-5.4) M/mm3 Hgb (12.0-16.0) gm/dl Hct (35-47) % MCV (78-100) fl MCH (26-32) pg MCHC (32-36) g/dl RDW (11.5-14.0) % Plt Count (150-450) K/mm3 MPV (6-9.5) fl Gran % (36.0-66.0) % Eos # (Auto) (0-0.5) Absolute Lymphs (auto) (1.0-4.6) Absolute Monos (auto) (0.0-1.3) Lymphocytes % (24.0-44.0) % Monocytes % (0.0-12.0) % Eosinophils % (0.00-5.0) % Basophils % (0.0-0.4) % Absolute Granulocytes (1.4-6.9) Basophils # (0-0.4) Sodium (137-145) mmol/L Potassium (3.5-5.1) mmol/L Chloride (98-107) mmol/L Carbon Dioxide (22-30) mmol/L Anion Gap (5-15) MEQ/L BUN (7-17) mg/dL Creatinine (0.52-1.04) mg/dL Estimated GFR ML/MIN Glucose (74-106) mg/dL Lactic Acid 1.2 (0.4-2.0) Calcium (8.4-10.2) mg/dL Total Bilirubin (0.2-1.3) mg/dL AST (14-36) U/L ALT (0-35) U/L Alkaline Phosphatase (38-126) U/L Troponin I < 0.012 < 0.012 (0.000-0.034) ng/mL Serum Total Protein (6.3-8.2) g/dL Albumin (3.5-5.0) g/dL Triglycerides (30-150) mg/dL Cholesterol (50-200) mg/dL LDL Cholesterol (30-100) mg/dL HDL Cholesterol (40-60) mg/dL Heart Disease Risk Ratio Lipase (23-300) U/L 05/07/18 05/07/18 05/07/18 Range/Units 00:45 03:45 03:45 WBC (4.0-10.5) K/mm3 RBC (4.1-5.4) M/mm3 Hgb (12.0-16.0) gm/dl Hct (35-47) % MCV (78-100) fl MCH (26-32) pg MCHC (32-36) g/dl RDW (11.5-14.0) % Plt Count (150-450) K/mm3 MPV (6-9.5) fl Gran % (36.0-66.0) % Eos # (Auto) (0-0.5) Absolute Lymphs (auto) (1.0-4.6) Absolute Monos (auto) (0.0-1.3) Lymphocytes % (24.0-44.0) % Monocytes % (0.0-12.0) % Eosinophils % (0.00-5.0) % Basophils % (0.0-0.4) % Absolute Granulocytes (1.4-6.9) Basophils # (0-0.4) Sodium (137-145) mmol/L Potassium (3.5-5.1) mmol/L Chloride (98-107) mmol/L Carbon Dioxide (22-30) mmol/L Anion Gap (5-15) MEQ/L BUN (7-17) mg/dL Creatinine (0.52-1.04) mg/dL Estimated GFR ML/MIN Glucose (74-106) mg/dL Lactic Acid (0.4-2.0) Calcium (8.4-10.2) mg/dL Total Bilirubin (0.2-1.3) mg/dL AST (14-36) U/L ALT (0-35) U/L Alkaline Phosphatase (38-126) U/L Troponin I < 0.012 < 0.012 (0.000-0.034) ng/mL Serum Total Protein (6.3-8.2) g/dL Albumin (3.5-5.0) g/dL Triglycerides 89 (30-150) mg/dL Cholesterol 148 (50-200) mg/dL LDL Cholesterol 91 (30-100) mg/dL HDL Cholesterol 32 L (40-60) mg/dL Heart Disease Risk Ratio 4.6 Lipase (23-300) U/L - Radiology Exams Ordered Rad Exams-Entire Visit: Radiology Procedures Category Date Time Status CHEST 2 VIEWS (PA AND LAT) Stat Exams 05/06/18 15:04 Completed - Procedures and Test Procedures and Tests throughout Hospitalization: Therapy Orders & Screens 05/06/18 17:49 EKG Q8HX2,QAMX3,PRN Comment: 05/06/18 22:28 EKG ROUTINE Comment: Diagnosis: CHEST PAIN 05/07/18 05:00 EKG DAILY Comment: Diagnosis: CHEST PAIN 05/08/18 05:00 EKG DAILY Comment: Diagnosis: CHEST PAIN 05/09/18 05:00 EKG DAILY Comment: Diagnosis: CHEST PAIN - Discharge Disposition: Home, Self-Care Condition: Good Prescriptions: New Methylprednisolone Packet [Medrol Dosepack] 4 mg PO UD #30 packet Omeprazole 20 mg PO DAILY #10 capsule. Continue Ranitidine HCl [Zantac] 150 mg PO BID Fluticasone Propionate [Flonase NASAL] 1 spray NS DAILY Hydrocodone/Acetaminophen [[place] 5-325 Tablet] 1 tab PO Q4-6HPRN PRN #10 tablet MDD 6 tablets PRN Reason: Pain Follow up with: PENNY CHENG [Primary Care Provider] - 1 Week
--- NOTE | 2018-05-07 08:56 | PCM.DCORD ---
- Discharge Disposition: Home, Self-Care Condition: Good Prescriptions: New Methylprednisolone Packet [Medrol Dosepack] 4 mg PO UD #30 packet Omeprazole 20 mg PO DAILY #10 capsule. Sucralfate 1 gm [Carafate 1 GM] 1 g PO ACHS #28 tablet Continue Ranitidine HCl [Zantac] 150 mg PO BID Fluticasone Propionate [Flonase NASAL] 1 spray NS DAILY Hydrocodone/Acetaminophen [[place] 5-325 Tablet] 1 tab PO Q4-6HPRN PRN #10 tablet MDD 6 tablets PRN Reason: Pain Follow up with: PENNY CHENG [Primary Care Provider] - 1 Week
[2018-05-07] MEDS: Pepcid 20 MG PO SCH (09:31)
[2018-05-07] MEDS ORDERED: Ecotrin 325 MG PO SCH (10:00)
[2018-05-07] MEDS ORDERED: Flonase NASAL NS SCH (10:00)
[2018-05-07] MEDS ORDERED: Carafate 1 GM PO SCH (11:30)
== END 2018-05-07 10:21 | disposition home or self-care (01) ==
LOC: ED 14:22 → MED SURG 17:47
PROVIDERS: ADMIT Family Medicine; ATTEND Family Medicine
DX: R07.1 Chest pain on breathing (principal); R10.9 Unspecified abdominal pain
CPT/HCPCS: 36000; 36415; 71046; 80053; 80061; 83605; 83690; 83721; 84484; 85025; 93005; 93268; 94760; 96360; 96374; 96375; 99285; G0378; J2405; J2920; A9270-GY

== ENCOUNTER 2019-01-29 19:36 | Emergency (ER) | payer OTHER ==
[2019-01-29] MEDS ORDERED: BENADRYL 50 MG/ML ONE (20:03)
[2019-01-29] MEDS ORDERED: Ativan 2 MG/1 ML VIAL ONE ×2 (20:03→20:04)
--- NOTE | 2019-01-29 20:07 | ERPHSYRPT ---
- History of Present Illness Time Seen by Provider: 01/29/19 19:50 Source: patient Exam Limitations: no limitations Patient Subjective Stated Complaint: Mouth pain Triage Nursing Assessment: Patient ambulated into ED and transferred self to bed. Patient A+O X3. Patient's skin pink, warm and dry. Patient complains of mouth pain and "lock jaw". [facility]. Patient unable to open mouth. Left side of face noted to be unable to move. Patient states pain is 8/10. Patient able to VASQUEZ well. Physician History: 23 y/o white female pt presents with painful bilat jaw spasms and locking of jaw. denies injury. 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 pt started on Latuda less than a week ago. pt also on effexor. pt has never had this before. Timing/Duration: today Severity: moderate Associated Symptoms: other (restlessness today) Allergies/Adverse Reactions: adhesive tape Allergy (Intermediate, Verified 01/29/19 19:43) Blisters [place] Allergy (Verified 01/29/19 19:43) paroxetine HCl [From Paxil] Adverse Reaction (Verified 01/29/19 19:43) Nausea Home Medications: Ranitidine HCl [Zantac] 150 mg PO BID 07/21/17 [History] Bupropion HCl [Wellbutrin Xl] 1 tab PO DAILY 01/29/19 [History] Cetirizine HCl [Zyrtec] 10 mg PO DAILY 01/29/19 [History] Gabapentin 1 tab PO TID PRN 01/29/19 [History] Hydroxyzine Pamoate [Vistaril] 50 mg PO BID PRN PRN 01/29/19 [History] Lurasidone HCl [Latuda] 40 mg PO DAILY 01/29/19 [History] Propranolol HCl [Inderal LA] 1 tab PO DAILY 01/29/19 [History] Venlafaxine HCl [Effexor Xr] 1 tab PO DAILY 01/29/19 [History] Zolpidem Tartrate 10 mg [Ambien 10 MG] 1 tab PO HS PRN PRN 01/29/19 [History ] Hx Tetanus, Diphtheria Vaccination/Date Given: Yes Hx Influenza Vaccination/Date Given: Yes Hx Pneumococcal Vaccination/Date Given: No Immunizations Up to Date: Yes - Review of Systems Constitutional: No Symptoms Eyes: No Symptoms Ears, Nose, & Throat: No Symptoms Respiratory: No Symptoms Cardiac: No Symptoms Abdominal/Gastrointestinal: No Symptoms Genitourinary Symptoms: No Symptoms Musculoskeletal: Other (dystonia, akithisia) Skin: No Symptoms Neurological: Other (see above) Psychological: No Symptoms Endocrine: No Symptoms Hematologic/Lymphatic: No Symptoms Immunological/Allergic: No Symptoms All Other Systems: Reviewed and Negative - Past Medical History Pertinent Past Medical History: Yes Neurological History: Migraines ENT History: No Pertinent History Cardiac History: No Pertinent History Respiratory History: Asthma Endocrine Medical History: No Pertinent History Musculoskeletal History: No Pertinent History GI Medical History: Crohns Disease, GERD, Gallbladder Disease, Irritable Bowel History: No Pertinent History Psycho-Social History: Anxiety, Depression Female Reproductive Disorders: Other Other Medical History: Reports Crohns; cysts on ovaries - Past Surgical History Past Surgical History: Yes Neuro Surgical History: No Pertinent History Cardiac: No Pertinent History Respiratory: No Pertinent History Gastrointestinal: Cholecystectomy Genitourinary: Other Musculoskeletal: Orthopedic Surgery Female Surgical History: Section Other Surgical History: right rotator cuff repair. Ear tubes bilat,ovarian cyst 2016. ovarian cyst removal jun 2016. colonscopy jun 2016 - Social History Smoking Status: Current every day smoker How long have you smoked: years Exposure to second hand smoke: No Alcohol Use: None Drug Use: none Patient Lives Alone: No Significant Family History: no pertinent family hx - Female History Hx Last Menstrual Period: Depo shot Hx Now: No - Nursing Vital Signs Nursing Vital Signs: Initial Vital Signs Temperature 98.2 F 01/29/19 19:45 Pulse Rate 119 H 01/29/19 19:45 Respiratory Rate 18 01/29/19 19:45 Blood Pressure 138/100 01/29/19 19:45 O2 Sat by Pulse Oximetry 95 01/29/19 19:45 Pain Scale Pain Intensity 8 - Physical Exam General Appearance: moderate distress, alert, anxiety Eye Exam: PERRL/EOMI, eyes nml inspection Ears, Nose, Throat Exam: other (pt clinching teeth. cannot open mouth. bilat jaw tenderness) Neck Exam: normal inspection, non-tender, supple, full range of motion Respiratory Exam: No chest tenderness Cardiovascular Exam: tachycardia Gastrointestinal/Abdomen Exam: No tenderness Pelvic Exam: not done Rectal Exam: not done Back Exam: normal inspection, normal range of motion, No CVA tenderness, No vertebral tenderness Extremity Exam: normal inspection, normal range of motion, pelvis stable Neurologic Exam: alert, oriented x 3, cooperative, other (restless, cannot open mouth) Lymphatic Exam: No adenopathy SpO2 Interpretation: borderline oxygenation SpO2: 95 O2 Delivery: Room Air Ordered Tests: Medication Summary Discontinued Medications Generic Name Dose Route Start Last Admin Trade Name Freq PRN Reason Stop Dose Admin Diphenhydramine HCl Confirm 01/29/19 20:03 Benadryl 50 Mg/Ml Administered 01/29/19 20:04 Dose 50 mg .ROUTE .STK-MED ONE Diphenhydramine HCl 25 mg 01/29/19 20:24 01/29/19 20:25 Benadryl 50 Mg/Ml IM 01/29/19 20:25 25 mg STAT ONE Administration Lorazepam Confirm 01/29/19 20:03 Ativan 2 Mg/1 Ml Vial Administered 01/29/19 20:04 Dose 2 mg .ROUTE .STK-MED ONE Lorazepam Confirm 01/29/19 20:04 Ativan 2 Mg/1 Ml Vial Administered 01/29/19 20:05 Dose 2 mg .ROUTE .STK-MED ONE Lorazepam 0.5 mg 01/29/19 20:23 01/29/19 20:26 Ativan 2 Mg/1 Ml Vial IM 01/29/19 20:24 0.5 mg STAT ONE Administration - Progress Progress: improved Progress Note: 01/29/19 20:49 pt states sx nearly completely gone. Counseled pt/family regarding: diagnosis, need for follow-up - Departure Departure Disposition: Home Clinical Impression: Adverse drug reaction, Dystonia, Akathisia Condition: Stable Critical Care Time: No Referrals: PENNY CHENG [Primary Care Provider] - Additional Instructions: stop latuda. call your prescribing doctor tomorrow for further instructions. take benadryl 25mg orally 3 times daily for 4 days. Prescriptions: Lorazepam 0.5 mg [Ativan 0.5 MG] 0.5 mg PO BID PRN #5 tablet PRN Reason: Muscle Spasms
[2019-01-29] MEDS ORDERED: Ativan 2 MG/1 ML VIAL IM ONE (20:23)
[2019-01-29] MEDS ORDERED: BENADRYL 50 MG/ML IM ONE (20:24)
[2019-01-29 21:14] VITALS: BP 108/78; PULSE 100; O2SAT 96
== END 2019-01-29 21:13 | disposition home or self-care (01) ==
LOC: ED 19:36
DX: T50.995A Adverse effect of other drugs, medicaments and biological substances, initial encounter (principal); G24.9 Dystonia, unspecified; G25.71 Drug induced akathisia; T50.905A Adverse effect of unspecified drugs, medicaments and biological substances, initial encounter
CPT/HCPCS: 96372; 99284; J1200; J2060

== ENCOUNTER 2019-02-01 13:11 | Emergency (ER) | payer OTHER ==
[2019-02-01] MEDS ORDERED: Zofran 4 MG/2 ML VIAL IV ONE (13:52)
[2019-02-01] MEDS ORDERED: Sodium Chloride 0.9% 1000 ML 1,000 ML IV STA (13:52)
--- NOTE | 2019-02-01 13:52 | ERPHSYRPT ---
- History of Present Illness Source: patient Exam Limitations: no limitations Patient Subjective Stated Complaint: pt came into er with c/o n/v, pt states that she is hallucinating, mother stated that she called [facility] and they advised pt to come to er to medical cleared Triage Nursing Assessment: pt ambulated into the er, pt stated that she has been hallucinating, pt states that she has n/v, pt states she was here 3 days ago for locked jaw, vital wnl, active bowel sounds, pt states that she is seeing spiders Timing/Duration: today Severity of Symptoms-Max: moderate Severity of Symptoms-Current: moderate Associated Symptoms: hallucinating (visual) Previous symptoms: different symptoms Hx Tetanus, Diphtheria Vaccination/Date Given: Yes Hx Influenza Vaccination/Date Given: Yes Hx Pneumococcal Vaccination/Date Given: No <PERFECTO FERRARA - Last Filed: 02/01/19 16:06> <CO YOUNGBLOOD - Last Filed: 02/06/19 23:54> - History of Present Illness Time Seen by Provider: 02/01/19 13:30 Physician History: 23 y/o white female recently taken of latuda for extrapyramidal side effects. pt is on effexor and xl buspirone. pt having episodes vomiting and diarrhea this am. in addition, she is having hallucinations. pt contacted [facility] and told to go to ED for medical clearance. pt denies cp, soa, and abd pain. pt denies suicidal and homicidal ideations (PERFECTO FERRARA) Allergies/Adverse Reactions: adhesive tape Allergy (Intermediate, Verified 01/29/19 19:43) Blisters [place] Allergy (Verified 01/29/19 19:43) paroxetine HCl [From Paxil] Adverse Reaction (Verified 01/29/19 19:43) Nausea Home Medications: Ranitidine HCl [Zantac] 150 mg PO BID 07/21/17 [History] Bupropion HCl [Wellbutrin Xl] 1 tab PO DAILY 01/29/19 [History] Cetirizine HCl [Zyrtec] 10 mg PO DAILY 01/29/19 [History] Gabapentin 1 tab PO TID PRN 01/29/19 [History] Hydroxyzine Pamoate [Vistaril] 50 mg PO BID PRN PRN 01/29/19 [History] Propranolol HCl [Inderal LA] 1 tab PO DAILY 01/29/19 [History] Venlafaxine HCl [Effexor Xr] 1 tab PO DAILY 01/29/19 [History] Zolpidem Tartrate 10 mg [Ambien 10 MG] 1 tab PO HS PRN PRN 01/29/19 [History ] - Past Medical History Pertinent Past Medical History: Yes Neurological History: Migraines ENT History: No Pertinent History Cardiac History: No Pertinent History Respiratory History: Asthma Endocrine Medical History: No Pertinent History Musculoskeletal History: No Pertinent History GI Medical History: Crohns Disease, GERD, Gallbladder Disease, Irritable Bowel History: No Pertinent History Psycho-Social History: Anxiety, Depression Female Reproductive Disorders: Other Other Medical History: Reports Crohns; cysts on ovaries - Past Surgical History Past Surgical History: Yes Neuro Surgical History: No Pertinent History Cardiac: No Pertinent History Respiratory: No Pertinent History Gastrointestinal: Cholecystectomy Genitourinary: Other Musculoskeletal: Orthopedic Surgery Female Surgical History: Section Other Surgical History: right rotator cuff repair. Ear tubes bilat,ovarian cyst 2016. ovarian cyst removal jun 2016. colonscopy jun 2016 - Social History Smoking Status: Current every day smoker How long have you smoked: years Exposure to second hand smoke: No Alcohol Use: None Drug Use: none Patient Lives Alone: No Significant Family History: no pertinent family hx - Female History Hx Last Menstrual Period: unknown on depot shot Hx Now: No <PERFECTO FERRARA - Last Filed: 02/01/19 16:06> - Review of Systems Constitutional: No Symptoms Eyes: No Symptoms Ears, Nose, & Throat: No Symptoms Respiratory: No Symptoms Cardiac: No Symptoms Abdominal/Gastrointestinal: Nausea, Vomiting, Diarrhea Genitourinary Symptoms: No Symptoms Musculoskeletal: No Symptoms Psychological: Anxiety, Depression, Hallucinations, No Suicidal Ideations, No Homicidal Ideations Endocrine: No Symptoms Hematologic/Lymphatic: No Symptoms Immunological/Allergic: No Symptoms All Other Systems: Reviewed and Negative <PERFECTO FERRARA - Last Filed: 02/01/19 16:06> - Physical Exam General Appearance: mild distress, alert, anxiety Eyes, Ears, Nose, Throat Exam: normal ENT inspection, moist mucous membranes Neck Exam: normal inspection, non-tender, supple, full range of motion Respiratory Exam: normal breath sounds, lungs clear, airway intact, No chest tenderness, No respiratory distress Cardiovascular Exam: regular rate/rhythm, normal heart sounds, normal peripheral pulses Gastrointestinal/Abdominal Exam: soft, normal bowel sounds, No tenderness Extremities Exam: normal inspection, normal range of motion, No evidence of injury Neurological Exam: 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, 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, 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, oriented x 3, anxious Appearance: appropriate appearance, appropriate insight Behavior/Eye Contact/Speech: alert & cooperative, good eye contact, normal speech Thoughts/Hallucinations: visual hallucinations Skin Exam: normal color, warm, dry SpO2 Interpretation: normal SpO2: 97 O2 Delivery: Room Air <PERFECTO FERRARA - Last Filed: 02/01/19 16:06> - Nursing Vital Signs Nursing Vital Signs: Initial Vital Signs Temperature 98.5 F 02/01/19 13:23 Pulse Rate 96 H 02/01/19 13:23 Respiratory Rate 16 02/01/19 13:23 Blood Pressure 111/80 02/01/19 13:23 O2 Sat by Pulse Oximetry 97 02/01/19 13:23 Pain Scale Pain Intensity 3 - Course Nursing assessment & vital signs reviewed: Yes EKG Interpreted by Me: RATE (88), Sinus Rhythm, NORMAL AXIS, NORMAL INTERVALS, NORMAL QRS, Other (no change from comparison ekg dated 02/01/19) <PERFECTO FERRARA - Last Filed: 02/01/19 16:06> Ordered Tests: Medication Summary Discontinued Medications Generic Name Dose Route Start Last Admin Trade Name Freq PRN Reason Stop Dose Admin Cephalexin HCl 500 mg 02/01/19 15:52 02/01/19 15:58 Keflex 500 Mg PO 02/01/19 15:53 500 mg STAT ONE Administration Cephalexin HCl Confirm 02/01/19 15:56 Keflex 500 Mg Administered 02/01/19 15:57 Dose 500 mg .ROUTE .STK-MED ONE Sodium Chloride 1,000 mls @ 999 mls/hr 02/01/19 13:52 02/01/19 15:50 Sodium Chloride 0.9% 1000 Ml IV 02/01/19 14:52 Infused .Q1H1M STA Infusion Sodium Chloride Confirm 02/01/19 14:49 Sodium Chloride 0.9% 1000 Ml Administered 02/01/19 14:50 Dose 1,000 mls @ ud .ROUTE .STK-MED ONE Ondansetron HCl 4 mg 02/01/19 13:52 02/01/19 14:49 Zofran 4 Mg/2 Ml Vial IV 02/01/19 13:53 4 mg STAT ONE Administration Ondansetron HCl Confirm 02/01/19 14:49 Zofran 4 Mg/2 Ml Vial Administered 02/01/19 14:50 Dose 4 mg .ROUTE .STK-MED ONE Lab/Rad Data: Laboratory Result Diagrams 02/01/19 14:25 02/01/19 14:25 Laboratory Results 02/01/19 02/01/19 02/01/19 Range/Units 15:02 15:02 14:25 WBC (4.0-10.5) K/mm3 RBC (4.1-5.4) M/mm3 Hgb (12.0-16.0) gm/dl Hct (35-47) % MCV (78-100) fl MCH (26-32) pg MCHC (32-36) g/dl RDW (11.5-14.0) % Plt Count (150-450) K/mm3 MPV (6-9.5) fl Gran % (36.0-66.0) % Eos # (Auto) (0-0.5) Absolute Lymphs (auto) (1.0-4.6) Absolute Monos (auto) (0.0-1.3) Lymphocytes % (24.0-44.0) % Monocytes % (0.0-12.0) % Eosinophils % (0.00-5.0) % Basophils % (0.0-0.4) % Absolute Granulocytes (1.4-6.9) Basophils # (0-0.4) Sodium (137-145) mmol/L Potassium (3.5-5.1) mmol/L Chloride (98-107) mmol/L Carbon Dioxide (22-30) mmol/L Anion Gap (5-15) MEQ/L BUN (7-17) mg/dL Creatinine (0.52-1.04) mg/dL Estimated GFR ML/MIN Glucose (74-106) mg/dL Calcium (8.4-10.2) mg/dL Total Bilirubin (0.2-1.3) mg/dL AST (14-36) U/L ALT (0-35) U/L Alkaline Phosphatase (38-126) U/L Serum Total Protein (6.3-8.2) g/dL Albumin (3.5-5.0) g/dL Urine Color YELLOW (YELLOW) Urine Appearance SLIGHTLY CLOUDY (CLEAR) Urine pH 6.0 (5-6) Ur Specific [place] 1.017 (1.005-1.025) Urine Protein NEGATIVE (Negative) Urine Ketones NEGATIVE (NEGATIVE) Urine Blood NEGATIVE (0-5) [place]/ul Urine Nitrite NEGATIVE (NEGATIVE) Urine Bilirubin NEGATIVE (NEGATIVE) Urine Urobilinogen NEGATIVE (0-1) mg/dL Ur Leukocyte Esterase MODERATE (NEGATIVE) Urine WBC (Auto) 6-10 (0-5) /HPF Urine RBC (Auto) 3-5 (0-2) /HPF U Epithel Cells (Auto) FEW (FEW) /HPF Urine Bacteria (Auto) RARE (NEGATIVE) /HPF Urine Mucus (Auto) SLIGHT (NEGATIVE) /HPF Urine Culture Reflexed YES (NO) Urine Glucose NEGATIVE (NEGATIVE) mg/dL Salicylates (2-20) mg/dL Urine Opiates Level NEGATIVE (NEGATIVE) Ur Methadone NEGATIVE (NEGATIVE) Acetaminophen (10-30) ug/ml Urine Barbiturates NEGATIVE (NEGATIVE) Ur Phencyclidine (PCP) NEGATIVE (NEGATIVE) Urine Amphetamine NEGATIVE (NEGATIVE) U Benzodiazepine Level NEGATIVE (NEGATIVE) [place] < 0.2 L (0.60-1.20) mmol/L Urine Cocaine NEGATIVE (NEGATIVE) Urine Marijuana (THC) NEGATIVE (NEGATIVE) Ethyl Alcohol (0-10) mg/dL 02/01/19 02/01/19 Range/Units 14:25 14:25 WBC 11.7 H (4.0-10.5) K/mm3 RBC 4.14 (4.1-5.4) M/mm3 Hgb 14.0 (12.0-16.0) gm/dl Hct 41.8 (35-47) % MCV 101.0 H (78-100) fl MCH 33.8 H (26-32) pg MCHC 33.5 (32-36) g/dl RDW 14.3 H (11.5-14.0) % Plt Count 266 (150-450) K/mm3 MPV 9.1 (6-9.5) fl Gran % 55.0 (36.0-66.0) % Eos # (Auto) 0.33 (0-0.5) Absolute Lymphs (auto) 3.84 (1.0-4.6) Absolute Monos (auto) 1.04 (0.0-1.3) Lymphocytes % 32.9 (24.0-44.0) % Monocytes % 8.9 (0.0-12.0) % Eosinophils % 2.8 (0.00-5.0) % Basophils % 0.4 (0.0-0.4) % Absolute Granulocytes 6.42 (1.4-6.9) Basophils # 0.05 (0-0.4) Sodium 144 (137-145) mmol/L Potassium 3.7 (3.5-5.1) mmol/L Chloride 109 H (98-107) mmol/L Carbon Dioxide 21 L (22-30) mmol/L Anion Gap 17.7 H (5-15) MEQ/L BUN 12 (7-17) mg/dL Creatinine 0.76 (0.52-1.04) mg/dL Estimated GFR > 60.0 ML/MIN Glucose 83 (74-106) mg/dL Calcium 9.7 (8.4-10.2) mg/dL Total Bilirubin 0.60 (0.2-1.3) mg/dL AST 31 (14-36) U/L ALT 28 (0-35) U/L Alkaline Phosphatase 93 (38-126) U/L Serum Total Protein 8.0 (6.3-8.2) g/dL Albumin 4.5 (3.5-5.0) g/dL Urine Color (YELLOW) Urine Appearance (CLEAR) Urine pH (5-6) Ur Specific [place]rypt[place] (1.005-1.025) Urine Protein (Negative) Urine Ketones (NEGATIVE) Urine Blood (0-5) [place]/ul Urine Nitrite (NEGATIVE) Urine Bilirubin (NEGATIVE) Urine Urobilinogen (0-1) mg/dL Ur Leukocyte Esterase (NEGATIVE) Urine WBC (Auto) (0-5) /HPF Urine RBC (Auto) (0-2) /HPF U Epithel Cells (Auto) (FEW) /HPF Urine Bacteria (Auto) (NEGATIVE) /HPF Urine Mucus (Auto) (NEGATIVE) /HPF Urine Culture Reflexed (NO) Urine Glucose (NEGATIVE) mg/dL Salicylates < 1.0 L (2-20) mg/dL Urine Opiates Level (NEGATIVE) Ur Methadone (NEGATIVE) Acetaminophen < 10 L (10-30) ug/ml Urine Barbiturates (NEGATIVE) Ur Phencyclidine (PCP) (NEGATIVE) Urine Amphetamine (NEGATIVE) U Benzodiazepine Level (NEGATIVE) [place] (0.60-1.20) mmol/L Urine Cocaine (NEGATIVE) Urine Marijuana (THC) (NEGATIVE) Ethyl Alcohol < 10 (0-10) mg/dL <PERFECTO FERRARA - Last Filed: 02/01/19 16:06> <OC YOUNGBLOOD - Last Filed: 02/06/19 23:54> - Progress Progress Note: 02/01/19 15:58 transfer of care to dr. youngblood. he accepts pt in transfer 02/01/19 16:07 (PERFECTO FERRARA) <PERFECTO FERRARA - Last Filed: 02/01/19 16:06> - Departure Departure Disposition: Home Critical Care Time: Yes Critical Care Time(excluding separately billable procedures): Critical 30-74 mins (Clinical eval; labs, psych consult and definitive care plan established) <OC YOUNGBLOOD - Last Filed: 02/06/19 23:54> - Departure Clinical Impression: Medication intolerance Condition: Stable Referrals: PENNY CHENG [Primary Care Provider] - Instructions: Nausea -- Adult, Urinary Tract Infection, Adult (DC) Additional Instructions: Keep plan established today on consult with [facility]; call for help as needed or return to ER if further concerns meanwhile.
[2019-02-01 14:38] LABS: Absolute Neutrophil Ct (ANC) 6.42 (1.4-6.9); BASOPHIL % 0.4 % (0.0-0.4); Basophil (Absolute #) 0.05 (0-0.4); Eosinophil % 2.8 % (0.00-5.0); Eosinophil (Absolute #) 0.33 (0-0.5); Hematocrit 41.8 % (35-47); Lymphocyte (Absolute #) 3.84 (1.0-4.6); Lymphocytes % 32.9 % (24.0-44.0); Mean Corpuscular Hemoglobin 33.8 pg (26-32); Mean Corpuscular Hgb Concent. 33.5 g/dl (32-36); Mean Platelet Volume 9.1 fl (6-9.5); Monocyte (Absolute #) 1.04 (0.0-1.3); Monocytes % 8.9 % (0.0-12.0); Platelet Count 266 K/mm3 (150-450); Red Blood Count 4.14 M/mm3 (4.1-5.4); Red Cell Distribution Width 14.3 % (11.5-14.0); White Blood Count 11.7 K/mm3 (4.0-10.5)
[2019-02-01] MEDS ORDERED: Zofran 4 MG/2 ML VIAL ONE (14:49)
[2019-02-01] MEDS ORDERED: Sodium Chloride 0.9% 1000 ML 1,000 ML ONE (14:49)
[2019-02-01 14:50] LABS: ALBUMIN 4.5 g/dL (3.5-5.0); ALKALINE PHOSPHATASE 93 U/L (38-126); ANION GAP 17.7 MEQ/L (5-15); BLOOD UREA NITROGEN 12 mg/dL (7-17); CHLORIDE 109 mmol/L (98-107); Calcium 9.7 mg/dL (8.4-10.2); Carbon Dioxide 21 mmol/L (22-30); Creatinine 1 0.76 mg/dL (0.52-1.04); Glucose 83 mg/dL (74-106); Potassium 3.7 mmol/L (3.5-5.1); SGOT/AST 31 U/L (14-36); SGPT/ALT 28 U/L (0-35); SODIUM 144 mmol/L (137-145)
[2019-02-01 14:51] LABS: ACETAMINOPHEN < 10 ug/ml (10-30); ETHYL ALCOHOL < 10 mg/dL (0-10); SALICYLATE < 1.0 mg/dL (2-20)
[2019-02-01 15:30] LABS: Appearance SLIGHTLY CLOUDY (CLEAR); Bacteria RARE /HPF (NEGATIVE); Bilirubin NEGATIVE (NEGATIVE); Blood NEGATIVE Ery/ul (0-5); Epithelial Cells FEW /HPF (FEW); Glucose NEGATIVE (NEGATIVE); Ketones NEGATIVE (NEGATIVE); Leukocyte Esterase MODERATE (NEGATIVE); Mucus SLIGHT /HPF (NEGATIVE); Nitrite NEGATIVE (NEGATIVE); Protein,Urine Dip NEGATIVE (Negative); Specific Gravity 1.017 (1.005-1.025); Urobilinogen NEGATIVE mg/dL (0-1)
[2019-02-01 15:35] LABS: Amphetamine,Urine NEGATIVE (NEGATIVE); Barbiturate,Urine NEGATIVE (NEGATIVE); Benzodiazepine,Urine NEGATIVE (NEGATIVE); Cocaine,Urine NEGATIVE (NEGATIVE); Methadone,Urine NEGATIVE (NEGATIVE); Opiate,Urine NEGATIVE (NEGATIVE); PCP,Urine NEGATIVE (NEGATIVE); THC,Urine NEGATIVE (NEGATIVE)
[2019-02-01] MEDS ORDERED: KEFLEX 500 MG PO ONE (15:52)
[2019-02-01] MEDS ORDERED: KEFLEX 500 MG ONE (15:56)
[2019-02-01 16:02] VITALS: PULSE 87
[2019-02-01 17:06] VITALS: BP 108/79; O2SAT 100
== END 2019-02-01 17:26 | disposition home or self-care (01) ==
LOC: ED 13:11
DX: T50.995A Adverse effect of other drugs, medicaments and biological substances, initial encounter (principal)
CPT/HCPCS: 80053; 80178; 80307; 81001; 85025; 87086; 90791; 93005; 96360; 96374; 99291; G0480; G0481; Q3014; 36000; 36415; 99284; J2405; A9270-GY

== ENCOUNTER 2019-02-19 13:18 | Emergency (ER) | payer OTHER ==
[2019-02-19 13:35] VITALS: BP 115/83; PULSE 85; O2SAT 99
--- NOTE | 2019-02-19 13:41 | ERPHSYRPT ---
- History of Present Illness Time Seen by Provider: 02/19/19 13:35 Source: patient Exam Limitations: no limitations Patient Subjective Stated Complaint: Facial spasms Triage Nursing Assessment: Patient ambulated back to ED and transferred self to bed. Patient A+O X3. Patient's skin pink, warm and dry. Patient complains of facial spasms that caused her tongue to swell and jaws to lock. Patient took Ativan 0.5mg during episode and it relieved symptoms. Patient staets the Ativan is the only thing that helps and she is out of refills and can't get to her dr until Friday. Physician History: 23 y/o white female known to me for similar complaint of muscle spasms. pt is taking psychiatric medications that have caused extrapyramidal effects. pt states ativan helps. she took one ativan 0.5mg a bit ago and now spasms are resolving. she is out and cannot see her prescribing physician until friday. she is going out of town and concerned sx may recur during the weekend. i reminded pt benadryl was also effective during her visit on 01/29/19. Timing/Duration: intermittent, improved Severity: mild Associated Symptoms: denies symptoms Allergies/Adverse Reactions: adhesive tape Allergy (Intermediate, Verified 02/19/19 13:26) Blisters [place] Allergy (Verified 02/19/19 13:26) paroxetine HCl [From Paxil] Adverse Reaction (Verified 02/19/19 13:26) Nausea Home Medications: Ranitidine HCl [Zantac] 150 mg PO BID 07/21/17 [History] Bupropion HCl [Wellbutrin Xl] 1 tab PO DAILY 01/29/19 [History] Cetirizine HCl [Zyrtec] 10 mg PO DAILY 01/29/19 [History] Gabapentin 1 tab PO TID PRN 01/29/19 [History] Hydroxyzine Pamoate [Vistaril] 50 mg PO BID PRN PRN 01/29/19 [History] Propranolol HCl [Inderal LA] 1 tab PO DAILY 01/29/19 [History] Venlafaxine HCl [Effexor Xr] 1 tab PO DAILY 01/29/19 [History] Zolpidem Tartrate 10 mg [Ambien 10 MG] 1 tab PO HS PRN PRN 01/29/19 [History ] Hx Tetanus, Diphtheria Vaccination/Date Given: No Hx Influenza Vaccination/Date Given: Yes Hx Pneumococcal Vaccination/Date Given: No Immunizations Up to Date: Yes - Review of Systems Constitutional: No Symptoms Eyes: No Symptoms Ears, Nose, & Throat: No Symptoms Respiratory: No Symptoms Cardiac: No Symptoms Abdominal/Gastrointestinal: No Symptoms Genitourinary Symptoms: No Symptoms Musculoskeletal: Other (muscle spasms) Skin: No Symptoms Neurological: No Symptoms Psychological: No Symptoms Endocrine: No Symptoms Hematologic/Lymphatic: No Symptoms Immunological/Allergic: No Symptoms All Other Systems: Reviewed and Negative - Past Medical History Pertinent Past Medical History: Yes Neurological History: Migraines ENT History: No Pertinent History Cardiac History: No Pertinent History Respiratory History: Asthma Endocrine Medical History: No Pertinent History Musculoskeletal History: No Pertinent History GI Medical History: Crohns Disease, GERD, Gallbladder Disease, Irritable Bowel History: No Pertinent History Psycho-Social History: Anxiety, Depression Female Reproductive Disorders: Other Other Medical History: Reports Crohns; cysts on ovaries - Past Surgical History Past Surgical History: Yes Neuro Surgical History: No Pertinent History Cardiac: No Pertinent History Respiratory: No Pertinent History Gastrointestinal: Cholecystectomy Genitourinary: Other Musculoskeletal: Orthopedic Surgery Female Surgical History: Section Other Surgical History: right rotator cuff repair. Ear tubes bilat,ovarian cyst 2017. ovarian cyst removal jun 2016. colonscopy jun 2016 - Social History Smoking Status: Current every day smoker How long have you smoked: years Exposure to second hand smoke: No Alcohol Use: None Drug Use: none Patient Lives Alone: No Significant Family History: no pertinent family hx - Female History Hx Last Menstrual Period: Depo Hx Now: Yes - Nursing Vital Signs Nursing Vital Signs: Initial Vital Signs Temperature 98.0 F 02/19/19 13:29 Pulse Rate 85 02/19/19 13:29 Respiratory Rate 18 02/19/19 13:29 Blood Pressure 115/83 02/19/19 13:29 O2 Sat by Pulse Oximetry 99 02/19/19 13:29 Pain Scale Pain Intensity 0 - Physical Exam General Appearance: no apparent distress, alert, anxiety Eye Exam: PERRL/EOMI, eyes nml inspection Ears, Nose, Throat Exam: normal ENT inspection, moist mucous membranes Neck Exam: normal inspection, non-tender, supple, full range of motion Respiratory Exam: No chest tenderness Gastrointestinal/Abdomen Exam: No tenderness Pelvic Exam: not done Rectal Exam: not done Back Exam: normal inspection, normal range of motion, No CVA tenderness, No vertebral tenderness Extremity Exam: normal inspection, normal range of motion, pelvis stable Neurologic Exam: alert, oriented x 3, 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 keep your appointment on 02/22/19 Prescriptions: Lorazepam 0.5 mg [Ativan 0.5 MG] 0.5 mg PO BID PRN #5 tablet MDD 2 PRN Reason: Muscle Spasms
== END 2019-02-19 14:08 | disposition home or self-care (01) ==
LOC: ED 13:18
DX: T50.995A Adverse effect of other drugs, medicaments and biological substances, initial encounter (principal); G51.39 Clonic hemifacial spasm, unspecified; F41.9 Anxiety disorder, unspecified; F32.9 Major depressive disorder, single episode, unspecified
CPT/HCPCS: 99283

== ENCOUNTER 2019-03-23 16:28 | Emergency (ER) | payer OTHER ==
--- NOTE | 2019-03-23 17:07 | ERPHSYRPT ---
- History of Present Illness Time Seen by Provider: 03/23/19 16:50 Historian: patient, family Exam Limitations: no limitations Physician History: 23 y/o white female with h/o crohns dz, irritable bowel syndrome, gerdz, ovarian cysts, c section, anxiety and depression presents with 2 day h/o generalized abd pain. pt seen at [facility] yesterday and told to go to ED yesterday. pt did not. pt underwent lab workup and pt did have an elevated wbc of 13,000. pt has not had n/v/d. pt underwent a plain abd film yesterday and i reviewed report which stated pt had mild fecal stasis. Timing/Duration: day(s) (2) Activities at Onset: none Quality: aching Abdominal Pain Onset Location: generalized abdomen Pain Radiation: no radiation Severity of Pain-Max: mild Severity of Pain-Current: mild Modifying Factors: Improves With: nothing Associated Symptoms: denies symptoms Previous symptoms: same symptoms as today Allergies/Adverse Reactions: adhesive tape Allergy (Intermediate, Verified 03/23/19 17:09) Blisters atka Allergy (Verified 03/23/19 17:09) paroxetine HCl [From Paxil] Adverse Reaction (Verified 03/23/19 17:09) Nausea Home Medications: Ranitidine HCl [Zantac] 150 mg PO BID 07/21/17 [History] Bupropion HCl [Wellbutrin Xl] 1 tab PO DAILY 01/29/19 [History] Gabapentin 1 tab PO TID PRN 01/29/19 [History] Hydroxyzine Pamoate [Vistaril] 50 mg PO BID PRN PRN 01/29/19 [History] Propranolol HCl [Inderal LA] 1 tab PO DAILY 01/29/19 [History] Venlafaxine HCl [Effexor Xr] 1 tab PO DAILY 01/29/19 [History] Trazodone HCl 150 mg [Desyrel 150 MG] 150 mg PO HS 03/23/19 [History] risperiDONE [Risperidone] 3 mg PO HS 03/23/19 [History] Hx Tetanus, Diphtheria Vaccination/Date Given: No Hx Influenza Vaccination/Date Given: Yes Hx Pneumococcal Vaccination/Date Given: No - Review of Systems Constitutional: No Symptoms Eyes: No Symptoms Ears, Nose, & Throat: No Symptoms Respiratory: No Symptoms Cardiac: No Symptoms Abdominal/Gastrointestinal: Abdominal Pain (generalized) Genitourinary Symptoms: No Symptoms Musculoskeletal: No Symptoms Skin: No Symptoms Neurological: No Symptoms Psychological: No Symptoms Endocrine: No Symptoms Hematologic/Lymphatic: No Symptoms Immunological/Allergic: No Symptoms All Other Systems: Reviewed and Negative - Past Medical History Pertinent Past Medical History: Yes Neurological History: Migraines ENT History: No Pertinent History Cardiac History: No Pertinent History Respiratory History: Asthma Endocrine Medical History: No Pertinent History Musculoskeletal History: No Pertinent History GI Medical History: Crohns Disease, GERD, Gallbladder Disease, Irritable Bowel History: No Pertinent History Psycho-Social History: Anxiety, Depression Female Reproductive Disorders: Other Other Medical History: Reports Crohns; cysts on ovaries - Past Surgical History Past Surgical History: Yes Neuro Surgical History: No Pertinent History Cardiac: No Pertinent History Respiratory: No Pertinent History Gastrointestinal: Cholecystectomy Genitourinary: Other Musculoskeletal: Orthopedic Surgery Female Surgical History: Section Other Surgical History: right rotator cuff repair. Ear tubes bilat,ovarian cyst 2016. ovarian cyst removal jun 2016. colonscopy jun 2016 - Social History Smoking Status: Current every day smoker How long have you smoked: years Exposure to second hand smoke: No Alcohol Use: None Drug Use: none Patient Lives Alone: No Significant Family History: no pertinent family hx - Nursing Vital Signs Nursing Vital Signs: Initial Vital Signs Temperature 97.9 F 03/23/19 16:55 Pulse Rate 91 H 03/23/19 16:55 Blood Pressure 97/59 03/23/19 16:55 O2 Sat by Pulse Oximetry 95 03/23/19 16:55 Pain Scale Pain Intensity 8 - Physical Exam General Appearance: no apparent distress, alert, anxiety Eye Exam: PERRL/EOMI Ears, Nose, Throat Exam: normal ENT inspection, moist mucous membranes Neck Exam: normal inspection, non-tender, supple, full range of motion Respiratory Exam: normal breath sounds, lungs clear, No chest tenderness, No respiratory distress Cardiovascular Exam: regular rate/rhythm, normal heart sounds, normal peripheral pulses Gastrointestinal/Abdomen Exam: soft, normal bowel sounds, No tenderness Pelvic Exam: not done Rectal Exam: not done Back Exam: normal inspection, normal range of motion, No CVA tenderness Extremity Exam: normal inspection, normal range of motion, pelvis stable Neurologic Exam: alert, oriented x 3, cooperative, site leasing agent II-XII nml as tested Skin Exam: normal color, warm, dry Lymphatic Exam: No adenopathy SpO2 Interpretation: normal O2 Delivery: Room Air - Course Nursing assessment & vital signs reviewed: Yes Ordered Tests: Active Orders 24 hr Category Date Time Status ABDOMEN AND PELVIS W/0 CONTRAS [CT] Stat Exams 03/23/19 17:12 Taken HCG,QUALITATIVE URINE Stat Lab 03/23/19 17:15 Completed UA W/RFX UR CULTURE Stat Lab 03/23/19 17:15 Completed Medication Summary Discontinued Medications Generic Name Dose Route Start Last Admin Trade Name Dimple PRN Reason Stop Dose Admin Cephalexin HCl 500 mg 03/23/19 17:42 03/23/19 17:44 Keflex 500 Mg PO 03/23/19 17:43 500 mg STAT ONE Administration Cephalexin HCl Confirm 03/23/19 17:44 Keflex 500 Mg Administered 03/23/19 17:45 Dose 500 mg .ROUTE .STK-MED ONE Lab/Rad Data: Laboratory Results 03/23/19 03/23/19 Range/Units 17:15 17:15 Urine Color YELLOW (YELLOW) Urine Appearance SLIGHTLY CLOUDY (CLEAR) Urine pH 6.0 (5-6) Ur Specific Fowler 1.020 (1.005-1.025) Urine Protein NEGATIVE (Negative) Urine Ketones NEGATIVE (NEGATIVE) Urine Blood NEGATIVE (0-5) [place]/ul Urine Nitrite NEGATIVE (NEGATIVE) Urine Bilirubin NEGATIVE (NEGATIVE) Urine Urobilinogen NEGATIVE (0-1) mg/dL Ur Leukocyte Esterase SMALL (NEGATIVE) Urine WBC (Auto) 3-5 (0-5) /HPF Urine RBC (Auto) 0-2 (0-2) /HPF U Epithel Cells (Auto) RARE (FEW) /HPF Urine Bacteria (Auto) NONE (NEGATIVE) /HPF Urine Mucus (Auto) SLIGHT (NEGATIVE) /HPF Urine Culture Reflexed NO (NO) Urine Glucose NEGATIVE (NEGATIVE) mg/dL Urine HCG, Qual NEGATIVE (Negative) - Progress Progress: unchanged Progress Note: 03/23/19 18:47 ct abd/pelvis-mild fecal stasis Counseled pt/family regarding: lab results, diagnosis, need for follow-up, rad results - Departure Departure Disposition: Home Clinical Impression: Constipation Condition: Stable Critical Care Time: No Referrals: PENNY CHENG [Primary Care Provider] - Additional Instructions: drink plenty of fluids. tylenol and ibuprofen for pain. follow up with primary doctor for further management Prescriptions: Cephalexin Mh 500 mg [Keflex 500 mg] 500 mg PO TID #21 capsule
[2019-03-23 17:33] LABS: Appearance SLIGHTLY CLOUDY (CLEAR); Bilirubin NEGATIVE (NEGATIVE); Blood NEGATIVE Ery/ul (0-5); Epithelial Cells RARE /HPF (FEW); Glucose NEGATIVE (NEGATIVE); Ketones NEGATIVE (NEGATIVE); Leukocyte Esterase SMALL (NEGATIVE); Mucus SLIGHT /HPF (NEGATIVE); Nitrite NEGATIVE (NEGATIVE); Protein,Urine Dip NEGATIVE (Negative); RBC 0-2 /HPF (0-2); Urobilinogen NEGATIVE mg/dL (0-1)
[2019-03-23] MEDS ORDERED: KEFLEX 500 MG PO ONE (17:42)
[2019-03-23] MEDS ORDERED: KEFLEX 500 MG ONE (17:44)
[2019-03-23] MEDS ORDERED: NORCO 5/325 MG PO ONE (18:49)
[2019-03-23] MEDS ORDERED: NORCO 5/325 MG ONE (18:52)
[2019-03-23 18:54] VITALS: BP 116/68; PULSE 82; O2SAT 98
--- NOTE | 2019-03-24 08:40 | XRAY ---
Indication: Abdomen pain 3 days. Multiple contiguous axial images obtained through the abdomen and pelvis without contrast as ordered. Comparison: September 01, 2018. Lung bases demonstrate mild left base dependent atelectasis. No infiltrate or effusion. Heart is not enlarged. Noncontrasted stomach and bowel loops appear nonobstructed. Normal appendix with tiny appendicolith. Again mild diffuse scattered colonic fecal debris throughout. New nonobstructing punctate calculus in each kidney. Again previous cholecystectomy. No free fluid/air. Remaining liver, pancreas, spleen, adrenal glands, kidneys, ureters, bladder, uterus, and aorta appear unremarkable for noncontrast exam. Osseous structures intact. Impression: 1. New nonobstructing bilateral renal micro-calculus. 2. Again diffuse fecal stasis without obstruction. 3. Remaining CT abdomen/pelvis without contrast exam is negative. CT DI 16.70
== END 2019-03-23 19:00 | disposition home or self-care (01) ==
LOC: ED 16:28
DX: K59.00 Constipation, unspecified (principal); Z79.899 Other long term (current) drug therapy; R07.9 Chest pain, unspecified
CPT/HCPCS: 74176; 81001; 84703; 99284; A9270-GY

== ENCOUNTER 2020-11-14 11:21 | Emergency (ER) | payer OTHER ==
[2020-11-14] MEDS ORDERED: Atrovent 0.5MG NEBULE IH ONE ×2 (11:39→12:03)
[2020-11-14] MEDS ORDERED: PROVENTIL 2.5 MG/3 ML NEB IH ONE ×6 (11:39→18:21)
--- NOTE | 2020-11-14 11:39 | ERPHSYRPT ---
- History of Present Illness Time Seen by Provider: 11/14/20 11:30 Source: patient Patient Subjective Stated Complaint: Patient has complaints of shortness of breath x2 days and became worse this morning. States her son has been diagnosed with RSV. States she has been having a frequent dry cough. Triage Nursing Assessment: Patient to ED with complaints of shortness of breath. Patient having audible inspiratory and expiratory wheezes with subcostal retractions. Skin pale, warm and dry. Physician History: The patient is a 24-year-old female with a past medical history significant for anxiety, depression and cigarette smoking presents with a chief complaint of shortness of breath. She reportedly started to develop a cough and congestion this past Friday or Friday. She reportedly went to an urgent care yesterday and tested positive for "RSV". She was given 3 prescriptions upon being discharged but cannot remember the names of the medication. She cannot tell me that she started a Medrol Dosepak. She states her shortness of breath is gotten worse and she endorsed having wheezing. She denies any known history of lung pathology to include asthma or pneumonia. She denies chest pain, sleep apnea, fever, chills. Associated Symptoms: shortness of breath, cough, No nausea, No vomiting, No abdominal pain, No chills, No chest pain, No fever, No syncope Allergies/Adverse Reactions: adhesive tape Allergy (Intermediate, Verified 11/14/20 11:35) Blisters [place] Allergy (Verified 11/14/20 11:35) paroxetine HCl [From Paxil] Adverse Reaction (Verified 11/14/20 11:35) Nausea Home Medications: Ranitidine HCl [Zantac] 150 mg PO BID 07/21/17 [History] Bupropion HCl [Wellbutrin Xl] 1 tab PO DAILY 01/29/19 [History] Gabapentin 1 tab PO TID PRN 01/29/19 [History] Propranolol HCl [Inderal LA] 1 tab PO DAILY 01/29/19 [History] Venlafaxine HCl [Effexor Xr] 1 tab PO DAILY 01/29/19 [History] hydrOXYzine pamoate [Vistaril] 50 mg PO BID PRN PRN 01/29/19 [History] Trazodone HCl 150 mg [Desyrel 150 MG] 150 mg PO HS 03/23/19 [History] risperiDONE [Risperidone] 3 mg PO HS 03/23/19 [History] Hx Tetanus, Diphtheria Vaccination/Date Given: No Hx Influenza Vaccination/Date Given: Yes Hx Pneumococcal Vaccination/Date Given: No Immunizations Up to Date: Yes Travel Risk - International Travel Have you traveled outside of the country in past 3 weeks: No - Coronavirus Screening Are you exhibiting any of the following symptoms?: Yes Symptoms: Shortness of Breath - Vaccine Status Have you recieved a Covid-19 vaccination: Yes [employer]: [employer] - Vaccination Dates Date of 2cond Vaccination (if applicable): unknown Comment: unknown - Review of Systems Constitutional: No Fever, No Chills Ears, Nose, & Throat: Nose Congestion Respiratory: Cough, Dyspnea, Wheezing Cardiac: No Symptoms, No Chest Pain, No Edema, No Palpitations, No Syncope Abdominal/Gastrointestinal: No Symptoms, No Nausea, No Vomiting, No Diarrhea, No Constipation Genitourinary Symptoms: No Symptoms Musculoskeletal: No Symptoms Skin: No Symptoms Neurological: No Symptoms, No Headache All Other Systems: Reviewed and Negative - Past Medical History Pertinent Past Medical History: Yes Neurological History: Migraines ENT History: No Pertinent History Cardiac History: No Pertinent History Respiratory History: Asthma Endocrine Medical History: No Pertinent History Musculoskeletal History: No Pertinent History GI Medical History: Crohns Disease, GERD, Gallbladder Disease, Irritable Bowel History: No Pertinent History Psycho-Social History: Anxiety, Depression Female Reproductive Disorders: Other Other Medical History: Reports Crohns; cysts on ovaries - Past Surgical History Past Surgical History: Yes Neuro Surgical History: No Pertinent History Cardiac: No Pertinent History Respiratory: No Pertinent History Gastrointestinal: Cholecystectomy Genitourinary: Other Musculoskeletal: Orthopedic Surgery Female Surgical History: Section Other Surgical History: right rotator cuff repair. Ear tubes bilat,ovarian cyst 2017. ovarian cyst removal jun 2016. colonscopy jun 2016 - Social History Smoking Status: Current every day smoker How long have you smoked: 1 year Exposure to second hand smoke: Yes Alcohol Use: None Drug Use: none Patient Lives Alone: No Significant Family History: no pertinent family hx - Female History Hx Last Menstrual Period: unknown Hx Now: No (depo provera shot) - Nursing Vital Signs Nursing Vital Signs: Initial Vital Signs Temperature 97.4 F 11/14/20 11:22 Pulse Rate 78 11/14/20 11:22 Respiratory Rate 38 H 11/14/20 11:22 Blood Pressure 112/81 11/14/20 11:22 O2 Sat by Pulse Oximetry 92 L 11/14/20 11:22 Pain Scale Pain Intensity 5 - Physical Exam General Appearance: mild distress Eye Exam: PERRL/EOMI, eyes nml inspection Ears, Nose, Throat Exam: dry mucous membranes, No pharyngeal erythema, No tonsillar exudate Neck Exam: normal inspection, supple Respiratory Exam: airway intact, diminished breath sounds, wheezing, No respiratory distress Cardiovascular Exam: regular rate/rhythm, normal heart sounds, normal peripheral pulses, capillary refill <2 sec, No murmur, No friction rub, No gallop, No tachycardia Gastrointestinal/Abdomen Exam: soft Rectal Exam: deferred Back Exam: normal inspection Extremity Exam: normal inspection Neurologic Exam: alert, oriented x 3, other (Flat affect) Skin Exam: warm, dry, pale SpO2 Interpretation: normal SpO2: 92 O2 Delivery: Room Air - Course Nursing assessment & vital signs reviewed: Yes EKG Interpreted by Me: RATE, NORMAL AXIS, NORMAL INTERVALS, Other (No evidence of acute myocardial ischemia or injury pattern) Ordered Tests: Active Orders 24 hr Category Date Time Status Fuel Dock Attendant STAT Care 11/14/20 11:38 Active EKG-ER Only STAT Care 11/14/20 11:37 Active IV Insertion STAT Care 11/14/20 11:37 Active CHEST 2 VIEWS (PA AND LAT) Stat Exams 11/14/20 11:38 Completed ABG [ARTERIAL BLOOD GASES] Urgent Lab 11/14/20 14:08 Completed BMP Stat Lab 11/14/20 13:07 Completed BMP Stat Lab 11/14/20 17:25 Completed CBC W DIFF Stat Lab 11/14/20 13:07 Completed CULTURE,URINE Stat Lab 11/14/20 11:30 Received D-DIMER QUANTITATIVE Stat Lab 11/14/20 13:07 Completed HCG,QUALITATIVE URINE Stat Lab 11/14/20 11:40 Completed TROPONIN Q3H Lab 11/14/20 13:07 Completed TROPONIN Q3H Lab 11/14/20 15:15 Completed UA W/RFX UR CULTURE Stat Lab 11/14/20 11:30 Completed Respiratory Therapy Assessment DAILY RT 11/14/20 12:13 Active Medication Summary Discontinued Medications Generic Name Dose Route Start Last Admin Trade Name Freq PRN Reason Stop Dose Admin Acetaminophen 975 mg 11/14/20 13:45 11/14/20 14:18 Tylenol 325 Mg PO 11/14/20 13:46 975 mg STAT ONE Administration Acetaminophen Confirm 11/14/20 14:17 Tylenol 325 Mg Administered 11/14/20 14:18 Dose 325 mg .ROUTE .STK-MED ONE Albuterol Sulfate 2.5 mg 11/14/20 11:39 11/14/20 12:07 Proventil 2.5 Mg/3 Ml Neb IH 11/14/20 11:40 2.5 mg STAT ONE Administration Albuterol Sulfate Confirm 11/14/20 12:03 Proventil Solution 2.5 Mg/0.5 Ml Administered 11/14/20 12:04 Dose 2.5 mg IH .STK-MED ONE Albuterol Sulfate Confirm 11/14/20 12:06 Proventil 2.5 Mg/3 Ml Neb Administered 11/14/20 12:07 Dose 2.5 mg IH .STK-MED ONE Albuterol Sulfate 2.5 mg 11/14/20 13:44 11/14/20 13:54 Proventil 2.5 Mg/3 Ml Neb IH 11/14/20 13:45 2.5 mg STAT ONE Administration Albuterol Sulfate Confirm 11/14/20 13:48 Proventil 2.5 Mg/3 Ml Neb Administered 11/14/20 13:49 Dose 2.5 mg IH .STK-MED ONE Albuterol Sulfate 2.5 mg 11/14/20 18:11 Proventil 2.5 Mg/3 Ml Neb IH 11/14/20 18:12 STAT ONE Sodium Chloride 1,000 mls @ 999 mls/hr 11/14/20 13:28 11/14/20 14:38 Sodium Chloride 0.9% 1000 Ml IV 11/14/20 14:28 Infused .Q1H1M STA Infusion Sodium Chloride Confirm 11/14/20 13:34 Sodium Chloride 0.9% 1000 Ml Administered 11/14/20 13:35 Dose 1,000 mls @ ud .ROUTE .STK-MED ONE Lactated Ringer's 1,000 mls @ 999 mls/hr 11/14/20 13:46 11/14/20 16:47 Lactated Ringers IV 11/14/20 14:46 Infused .Q1H1M ONE Infusion Lactated Ringer's Confirm 11/14/20 13:49 Lactated Ringers Administered 11/14/20 13:50 Dose 1,000 mls @ ud IV .STK-MED ONE Ipratropium [place] 0.5 mg 11/14/20 11:39 11/14/20 12:07 Atrovent 0.5mg Nebule IH 11/14/20 11:40 0.5 mg STAT ONE Administration Ipratropium [place] Confirm 11/14/20 12:03 Atrovent 0.5mg Nebule Administered 11/14/20 12:04 Dose 0.5 mg IH .STK-MED ONE Ondansetron HCl 4 mg 11/14/20 13:45 11/14/20 14:18 Zofran 4 Mg/2 Ml Vial IV 11/14/20 13:46 4 mg STAT ONE Administration Ondansetron HCl Confirm 11/14/20 13:51 Zofran 4 Mg/2 Ml Vial Administered 11/14/20 13:52 Dose 4 mg .ROUTE .STK-MED ONE Prednisone 60 mg 11/14/20 18:11 Deltasone 20 Mg PO 11/14/20 18:12 STAT ONE Lab/Rad Data: Laboratory Result Diagrams 11/14/20 13:07 11/14/20 17:25 Laboratory Results 11/14/20 11/14/20 11/14/20 Range/Units 17:25 15:15 15:00 WBC (4.0-10.5) K/mm3 RBC (4.1-5.4) M/mm3 Hgb (12.0-16.0) gm/dl Hct (35-47) % MCV (78-100) fl MCH (26-32) pg MCHC (32-36) g/dl RDW (11.5-14.0) % Plt Count (150-450) K/mm3 MPV (7.5-11.0) fl Gran % (36.0-66.0) % Eos # (Auto) (0-0.5) Absolute Lymphs (auto) (1.0-4.6) Absolute Monos (auto) (0.0-1.3) Lymphocytes % (24.0-44.0) % Monocytes % (0.0-12.0) % Eosinophils % (0.00-5.0) % Basophils % (0.0-0.4) % Absolute Granulocytes (1.4-6.9) Basophils # (0-0.4) D-Dimer (215-500) ng/mL Puncture Site pCO2 (35-45) mmHg pO2 (75-100) mmHg Base Excess (-2.0-2.0) O2 Saturation (94-100) g/dF ABG pH (7.35-7.45) ABG HCO3 (22-28) ABG O2 Sat (Measured) (95-100) % Syd Test A-a Gradient a/A Ratio Hemoglobin Carboxyhemoglobin (0.0-6.9) % THgb Methemoglobin (1.4-1.5) % Temperature C POC O2 Flow Rate % Sodium 139 (137-145) mmol/L Potassium 4.2 (3.5-5.1) mmol/L Chloride 111 H (98-107) mmol/L Carbon Dioxide 13 L* (22-30) mmol/L Anion Gap 17.7 H (5-15) MEQ/L BUN 17 (7-17) mg/dL Creatinine 1.30 H (0.52-1.04) mg/dL Estimated GFR 53.0 ML/MIN Glucose 86 (74-106) mg/dL Calcium 8.9 (8.4-10.2) mg/dL Troponin I < 0.012 (0.000-0.034) ng/mL Urine Color (YELLOW) Urine Appearance (CLEAR) Urine pH (5-6) Ur Specific [place] (1.005-1.025) Urine Protein (Negative) Urine Ketones (NEGATIVE) Urine Blood (0-5) [place]/ul Urine Nitrite (NEGATIVE) Urine Bilirubin (NEGATIVE) Urine Urobilinogen (0-1) mg/dL Ur Leukocyte Esterase (NEGATIVE) Urine WBC (Auto) (0-5) /HPF Urine RBC (Auto) (0-2) /HPF U Hyaline Cast (Auto) (0-2) /LPF U Epithel Cells (Auto) (FEW) /HPF Urine Bacteria (Auto) (NEGATIVE) /HPF Urine Mucus (Auto) (NEGATIVE) /HPF Urine Culture Reflexed (NO) Urine Glucose (NEGATIVE) mg/dL Urine HCG, Qual (Negative) SARS-CoV-2 (PCR) NEGATIVE (NEGATIVE) 11/14/20 11/14/20 11/14/20 Range/Units 14:08 13:07 13:07 WBC (4.0-10.5) K/mm3 RBC (4.1-5.4) M/mm3 Hgb (12.0-16.0) gm/dl Hct (35-47) % MCV (78-100) fl MCH (26-32) pg MCHC (32-36) g/dl RDW (11.5-14.0) % Plt Count (150-450) K/mm3 MPV (7.5-11.0) fl Gran % (36.0-66.0) % Eos # (Auto) (0-0.5) Absolute Lymphs (auto) (1.0-4.6) Absolute Monos (auto) (0.0-1.3) Lymphocytes % (24.0-44.0) % Monocytes % (0.0-12.0) % Eosinophils % (0.00-5.0) % Basophils % (0.0-0.4) % Absolute Granulocytes (1.4-6.9) Basophils # (0-0.4) D-Dimer < 215 L (215-500) ng/mL Puncture Site RIGHT RADIAL pCO2 34 L (35-45) mmHg pO2 62 L (75-100) mmHg Base Excess -5.4 L (-2.0-2.0) O2 Saturation 89.7 L (94-100) g/dF ABG pH 7.36 (7.35-7.45) ABG HCO3 19.2 L (22-28) ABG O2 Sat (Measured) 92.8 L (95-100) % Syd Test YES A-a Gradient 45 a/A Ratio 0.58 Hemoglobin 13.0 Carboxyhemoglobin 2.4 (0.0-6.9) % THgb Methemoglobin 0.9 L (1.4-1.5) % Temperature 37.0 C POC O2 Flow Rate 21 % Sodium (137-145) mmol/L Potassium 3.6 (3.5-5.1) mmol/L Chloride (98-107) mmol/L Carbon Dioxide (22-30) mmol/L Anion Gap (5-15) MEQ/L BUN (7-17) mg/dL Creatinine (0.52-1.04) mg/dL Estimated GFR ML/MIN Glucose (74-106) mg/dL Calcium (8.4-10.2) mg/dL Troponin I < 0.012 (0.000-0.034) ng/mL Urine Color (YELLOW) Urine Appearance (CLEAR) Urine pH (5-6) Ur Specific [place] (1.005-1.025) Urine Protein (Negative) Urine Ketones (NEGATIVE) Urine Blood (0-5) [place]/ul Urine Nitrite (NEGATIVE) Urine Bilirubin (NEGATIVE) Urine Urobilinogen (0-1) mg/dL Ur Leukocyte Esterase (NEGATIVE) Urine WBC (Auto) (0-5) /HPF Urine RBC (Auto) (0-2) /HPF U Hyaline Cast (Auto) (0-2) /LPF U Epithel Cells (Auto) (FEW) /HPF Urine Bacteria (Auto) (NEGATIVE) /HPF Urine Mucus (Auto) (NEGATIVE) /HPF Urine Culture Reflexed (NO) Urine Glucose (NEGATIVE) mg/dL Urine HCG, Qual (Negative) SARS-CoV-2 (PCR) (NEGATIVE) 11/14/20 11/14/20 11/14/20 Range/Units 13:07 13:07 11:40 WBC 11.5 H (4.0-10.5) K/mm3 RBC 4.62 (4.1-5.4) M/mm3 Hgb 14.0 (12.0-16.0) gm/dl Hct 42.4 (35-47) % MCV 91.8 (78-100) fl MCH 30.3 (26-32) pg MCHC 33.0 (32-36) g/dl RDW 14.8 H (11.5-14.0) % Plt Count 247 (150-450) K/mm3 MPV 9.2 (7.5-11.0) fl Gran % 68.9 H (36.0-66.0) % Eos # (Auto) 0.05 (0-0.5) Absolute Lymphs (auto) 2.40 (1.0-4.6) Absolute Monos (auto) 1.08 (0.0-1.3) Lymphocytes % 21.0 L (24.0-44.0) % Monocytes % 9.4 (0.0-12.0) % Eosinophils % 0.4 (0.00-5.0) % Basophils % 0.3 (0.0-0.4) % Absolute Granulocytes 7.89 H (1.4-6.9) Basophils # 0.03 (0-0.4) D-Dimer (215-500) ng/mL Puncture Site pCO2 (35-45) mmHg pO2 (75-100) mmHg Base Excess (-2.0-2.0) O2 Saturation (94-100) g/dF ABG pH (7.35-7.45) ABG HCO3 (22-28) ABG O2 Sat (Measured) (95-100) % Syd Test A-a Gradient a/A Ratio Hemoglobin Carboxyhemoglobin (0.0-6.9) % THgb Methemoglobin (1.4-1.5) % Temperature C POC O2 Flow Rate % Sodium 138 (137-145) mmol/L Potassium 4.0 (3.5-5.1) mmol/L Chloride 104 (98-107) mmol/L Carbon Dioxide 18 L (22-30) mmol/L Anion Gap 19.7 H (5-15) MEQ/L BUN 19 H (7-17) mg/dL Creatinine 1.47 H (0.52-1.04) mg/dL Estimated GFR 46.0 ML/MIN Glucose 119 H (74-106) mg/dL Calcium 9.7 (8.4-10.2) mg/dL Troponin I (0.000-0.034) ng/mL Urine Color (YELLOW) Urine Appearance (CLEAR) Urine pH (5-6) Ur Specific [place] (1.005-1.025) Urine Protein (Negative) Urine Ketones (NEGATIVE) Urine Blood (0-5) [place]/ul Urine Nitrite (NEGATIVE) Urine Bilirubin (NEGATIVE) Urine Urobilinogen (0-1) mg/dL Ur Leukocyte Esterase (NEGATIVE) Urine WBC (Auto) (0-5) /HPF Urine RBC (Auto) (0-2) /HPF U Hyaline Cast (Auto) (0-2) /LPF U Epithel Cells (Auto) (FEW) /HPF Urine Bacteria (Auto) (NEGATIVE) /HPF Urine Mucus (Auto) (NEGATIVE) /HPF Urine Culture Reflexed (NO) Urine Glucose (NEGATIVE) mg/dL Urine HCG, Qual NEGATIVE (Negative) SARS-CoV-2 (PCR) (NEGATIVE) 11/14/20 Range/Units 11:30 WBC (4.0-10.5) K/mm3 RBC (4.1-5.4) M/mm3 Hgb (12.0-16.0) gm/dl Hct (35-47) % MCV (78-100) fl MCH (26-32) pg MCHC (32-36) g/dl RDW (11.5-14.0) % Plt Count (150-450) K/mm3 MPV (7.5-11.0) fl Gran % (36.0-66.0) % Eos # (Auto) (0-0.5) Absolute Lymphs (auto) (1.0-4.6) Absolute Monos (auto) (0.0-1.3) Lymphocytes % (24.0-44.0) % Monocytes % (0.0-12.0) % Eosinophils % (0.00-5.0) % Basophils % (0.0-0.4) % Absolute Granulocytes (1.4-6.9) Basophils # (0-0.4) D-Dimer (215-500) ng/mL Puncture Site pCO2 (35-45) mmHg pO2 (75-100) mmHg Base Excess (-2.0-2.0) O2 Saturation (94-100) g/dF ABG pH (7.35-7.45) ABG HCO3 (22-28) ABG O2 Sat (Measured) (95-100) % Syd Test A-a Gradient a/A Ratio Hemoglobin Carboxyhemoglobin (0.0-6.9) % THgb Methemoglobin (1.4-1.5) % Temperature C POC O2 Flow Rate % Sodium (137-145) mmol/L Potassium (3.5-5.1) mmol/L Chloride (98-107) mmol/L Carbon Dioxide (22-30) mmol/L Anion Gap (5-15) MEQ/L BUN (7-17) mg/dL Creatinine (0.52-1.04) mg/dL Estimated GFR ML/MIN Glucose (74-106) mg/dL Calcium (8.4-10.2) mg/dL Troponin I (0.000-0.034) ng/mL Urine Color YELLOW (YELLOW) Urine Appearance SLIGHTLY CLOUDY (CLEAR) Urine pH 5.0 (5-6) Ur Specific [place] 1.032 (1.005-1.025) Urine Protein 30 (Negative) Urine Ketones TRACE (NEGATIVE) Urine Blood NEGATIVE (0-5) [place]/ul Urine Nitrite NEGATIVE (NEGATIVE) Urine Bilirubin NEGATIVE (NEGATIVE) Urine Urobilinogen NEGATIVE (0-1) mg/dL Ur Leukocyte Esterase TRACE (NEGATIVE) Urine WBC (Auto) 26-50 (0-5) /HPF Urine RBC (Auto) 3-5 (0-2) /HPF U Hyaline Cast (Auto) 26-50 (0-2) /LPF U Epithel Cells (Auto) FEW (FEW) /HPF Urine Bacteria (Auto) RARE (NEGATIVE) /HPF Urine Mucus (Auto) SLIGHT (NEGATIVE) /HPF Urine Culture Reflexed YES (NO) Urine Glucose NEGATIVE (NEGATIVE) mg/dL Urine HCG, Qual (Negative) SARS-CoV-2 (PCR) (NEGATIVE) - Progress Progress Note: 11/14/20 13:47 The patient appears to have what appears to be mild ED with an anion gap metabolic acidosis. She was reassessed to find that she was breathing comfortab ly and had no hypoxia. On deep inspiration, she did have some wheezing for which I ordered a second albuterol for. She endorsed that she has been vomiting having diarrhea over the past weekend and I suspect her acute renal failure is likely from a dehydration component. I will order a VBG to eval for a respiratory component to see if she is compensating from a respiratory standpoint. She is already have 1 L normal saline ordered in addition I will go ahead and order a liter of LR. 11/14/20 14:42 The patient reportedly is sleeping and in no obvious distress 11/14/20 18:15 The patient got up to go to the bathroom and then on a reassessment she says she is short of breath. She is not on his respiratory distress and has no hypoxia. Her wheezing sounds more subglottic as opposed to pulmonary on reassessment. I had her open her mouth and tilted her head back which seemed to resolve the wheezing. This may be paroxysmal vocal cord dysfunction. This may also be an anxiety psych component. Her renal function is relatively stable and her serum bicarb has been low which may be due to her hyperventilating. Her PCO2 is not elevated and actually is low for which she appears to be compensating. Give her another breathing treatment just to be sure that this is not from a bronchospasm and treat her with prednisone and discharge her home to follow-up with Dr. Richter. Counseled pt/family regarding: lab results, diagnosis, need for follow-up, rad results - Departure Departure Disposition: Home Clinical Impression: Wheezing, Viral URI with cough, Hyperventilation syndrome Condition: Stable Critical Care Time: No Referrals: PENNY RICHTER [Primary Care Provider] - Instructions: Viral Upper Respiratory Infection, Adult (DC), Wheezing Prescriptions: Prednisone 10 mg [Deltasone 10 mg] 40 mg PO DAILY 4 Days #16 tablet Albuterol 8 gm Mdi Hfa [Ventolin Hfa MDI] 90 mcg IH Q4H PRN #1 [id number] PRN Reason: Shortness Of Breath Doxycycline Hyclate 100 mg [Vibramycin 100 MG] 100 mg PO BID #14 tab
[2020-11-14] MEDS ORDERED: PROVENTIL Solution 2.5 MG/0.5 ML IH ONE (12:03)
[2020-11-14 13:12] LABS: Absolute Neutrophil Ct (ANC) 7.89 (1.4-6.9); BASOPHIL % 0.3 % (0.0-0.4); Basophil (Absolute #) 0.03 (0-0.4); Eosinophil % 0.4 % (0.00-5.0); Eosinophil (Absolute #) 0.05 (0-0.5); Hematocrit 42.4 % (35-47); Mean Cell Volume 91.8 fl (78-100); Mean Corpuscular Hemoglobin 30.3 pg (26-32); Mean Platelet Volume 9.2 fl (7.5-11.0); Monocyte (Absolute #) 1.08 (0.0-1.3); Monocytes % 9.4 % (0.0-12.0); Neutrophil % 68.9 % (36.0-66.0); Platelet Count 247 K/mm3 (150-450); Red Blood Count 4.62 M/mm3 (4.1-5.4); Red Cell Distribution Width 14.8 % (11.5-14.0); White Blood Count 11.5 K/mm3 (4.0-10.5)
--- NOTE | 2020-11-14 13:20 | XRAY ---
Exam: Two-view chest from 11/14/2020. Comparison: Two-view chest from 05/06/2018. Indication: 24-year-old female with dyspnea and wheezing. Findings: Upright PA and lateral chest films are submitted for evaluation. The heart size and contour are normal. EKG leads are noted in place. The keysha and mediastinal structures appear unremarkable. There is adequate inflation of the lungs. I see no air space infiltrates, pulmonary vascular congestion, pneumothorax, or pleural fluid. No acute osseous process is seen. Surgical clips consistent with prior cholecystectomy are seen within the right upper quadrant. Impression: 1. No acute cardiopulmonary disease is seen, no significant change from 05/06/2018.
[2020-11-14 13:25] LABS: ANION GAP 19.7 MEQ/L (5-15); Calcium 9.7 mg/dL (8.4-10.2); Creatinine 1 1.47 mg/dL (0.52-1.04)
[2020-11-14] MEDS ORDERED: Sodium Chloride 0.9% 1000 ML 1,000 ML IV STA (13:28)
[2020-11-14] MEDS ORDERED: Sodium Chloride 0.9% 1000 ML 1,000 ML ONE (13:34)
[2020-11-14] MEDS ORDERED: Zofran 4 MG/2 ML VIAL IV ONE (13:45)
[2020-11-14] MEDS ORDERED: TYLENOL 325 MG PO ONE (13:45)
[2020-11-14] MEDS ORDERED: Lactated Ringers 1,000 ML IV ONE ×2 (13:46→13:49)
[2020-11-14] MEDS ORDERED: Zofran 4 MG/2 ML VIAL ONE (13:51)
[2020-11-14 14:09] LABS: A-aADO2 45; ABG POTASSIUM 3.6 (3.5-5.1); ABG SITE RIGHT RADIAL; ALLEN TEST OK? YES; ARTERIAL BLD GAS O2 SATURATION 92.8 % (95-100); ARTERIAL BLOOD GAS BASE EXCESS -5.4 (-2.0-2.0); ARTERIAL BLOOD GAS FIO2 21 %; ARTERIAL BLOOD GAS PCO2 34 mmHg (35-45); ARTERIAL BLOOD GAS PO2 62 mmHg (75-100); ARTERIAL BLOOD GAS pH 7.36 (7.35-7.45); CARBOXYHEMOGLOBIN 2.4 % THgb (0.0-6.9); HCO3- 19.2 (22-28); HGB O2 SAT 89.7 g/dF (94-100); Methhemoglobin 0.9 % (1.4-1.5)
[2020-11-14 14:12] LABS: Appearance SLIGHTLY CLOUDY (CLEAR); Bacteria RARE /HPF (NEGATIVE); Bilirubin NEGATIVE (NEGATIVE); Blood NEGATIVE Ery/ul (0-5); Epithelial Cells FEW /HPF (FEW); Glucose NEGATIVE (NEGATIVE); Hyaline Casts 26-50 /LPF (0-2); Ketones TRACE (NEGATIVE); Leukocyte Esterase TRACE (NEGATIVE); Mucus SLIGHT /HPF (NEGATIVE); Nitrite NEGATIVE (NEGATIVE); Protein,Urine Dip 30 (Negative); Specific Gravity 1.032 (1.005-1.025); Urobilinogen NEGATIVE mg/dL (0-1); WBC 26-50 /HPF (0-5)
[2020-11-14] MEDS ORDERED: TYLENOL 325 MG ONE (14:17)
[2020-11-14 17:50] LABS: ANION GAP 17.7 MEQ/L (5-15); Calcium 8.9 mg/dL (8.4-10.2); Creatinine 1 1.3 mg/dL (0.52-1.04); Potassium 4.2 mmol/L (3.5-5.1)
[2020-11-14] MEDS ORDERED: DELTASONE 20 MG PO ONE (18:11)
[2020-11-14 18:13] VITALS: BP 100/89
[2020-11-14] MEDS ORDERED: DELTASONE 20 MG ONE (18:15)
[2020-11-14 18:29] VITALS: PULSE 88; O2SAT 93
== END 2020-11-14 18:31 | disposition home or self-care (01) ==
LOC: ED 11:21
DX: J06.9 Acute upper respiratory infection, unspecified (principal); R06.2 Wheezing; F45.8 Other somatoform disorders; R06.02 Shortness of breath; Z79.899 Other long term (current) drug therapy
CPT/HCPCS: 36000; 36415; 36600; 71046; 80048; 81001; 82375; 82803; 84484; 84703; 85025; 85379; 87086; 93005; 93041; 94640; 96360; 96374; 99284; U0003; J2405; J7609; A9270-GY

== ENCOUNTER 2021-03-19 18:29 | Emergency (ER) | payer OTHER ==
[2012-12-12 18:18] VITALS: BP 131/64
[2021-03-19] MEDS ORDERED: TORAdol 30 mg Injection IV ONE (18:43)
[2021-03-19] MEDS ORDERED: Sodium Chloride 0.9% 1000 ML 1,000 ML IV STA (18:43)
[2021-03-19] MEDS ORDERED: Sodium Chloride 0.9% 1000 ML 1,000 ML ONE (19:08)
[2021-03-19] MEDS ORDERED: TORAdol 30 mg Injection ONE (19:08)
[2021-03-19 19:13] LABS: Absolute Neutrophil Ct (ANC) 6.49 (1.4-6.9); BASOPHIL % 0.4 % (0.0-0.4); Basophil (Absolute #) 0.05 (0-0.4); Eosinophil % 3.1 % (0.00-5.0); Eosinophil (Absolute #) 0.37 (0-0.5); Hematocrit 42.4 % (35-47); Hemoglobin 13.8 gm/dl (12.0-16.0); Lymphocyte (Absolute #) 4.22 (1.0-4.6); Lymphocytes % 35.2 % (24.0-44.0); Mean Cell Volume 91.6 fl (78-100); Mean Corpuscular Hemoglobin 29.8 pg (26-32); Mean Corpuscular Hgb Concent. 32.5 g/dl (32-36); Mean Platelet Volume 8.8 fl (7.5-11.0); Monocyte (Absolute #) 0.85 (0.0-1.3); Monocytes % 7.1 % (0.0-12.0); Neutrophil % 54.2 % (36.0-66.0); Platelet Count 271 K/mm3 (150-450); Red Blood Count 4.63 M/mm3 (4.1-5.4); Red Cell Distribution Width 13.8 % (11.5-14.0)
[2021-03-19 19:24] LABS: ALBUMIN 4.3 g/dL (3.5-5.0); ALKALINE PHOSPHATASE 114 U/L (38-126); ANION GAP 14.8 MEQ/L (5-15); BLOOD UREA NITROGEN 7 mg/dL (7-17); CHLORIDE 108 mmol/L (98-107); Calcium 9.5 mg/dL (8.4-10.2); Carbon Dioxide 20 mmol/L (22-30); Creatinine 1 0.86 mg/dL (0.52-1.04); EST GLOMERULAR FILTRATION RATE > 60.0 ML/MIN; Glucose 94 mg/dL (74-106); Potassium 4.1 mmol/L (3.5-5.1); SGOT/AST 24 U/L (14-36); SGPT/ALT 15 U/L (0-35); SODIUM 139 mmol/L (137-145); Total Protein 7.4 g/dL (6.3-8.2)
[2021-03-19 19:34] LABS: Appearance CLOUDY (CLEAR); Bacteria RARE /HPF (NEGATIVE); Bilirubin NEGATIVE (NEGATIVE); Blood NEGATIVE Ery/ul (0-5); Epithelial Cells MODERATE /HPF (FEW); Glucose NEGATIVE (NEGATIVE); Ketones NEGATIVE (NEGATIVE); Leukocyte Esterase SMALL (NEGATIVE); Mucus SLIGHT /HPF (NEGATIVE); Nitrite NEGATIVE (NEGATIVE); Protein,Urine Dip NEGATIVE (Negative); Specific Gravity 1.031 (1.005-1.025); Urobilinogen NEGATIVE mg/dL (0-1)
[2021-03-19] MEDS ORDERED: ROCEPHIN 1 Gm-D5w 50 ml Bag** 1 G/50 ML IVPB IV STA (20:03)
[2021-03-19] MEDS ORDERED: Sodium Chloride 0.9% 500 ML 500 ML IV ONE ×2 (20:03→20:07)
[2021-03-19] MEDS ORDERED: ROCEPHIN 1 Gm-D5w 50 ml Bag** 1 G/50 ML IVPB IV ONE (20:07)
--- NOTE | 2021-03-19 20:12 | ERPHSYRPT ---
- History of Present Illness Time Seen by Provider: 03/19/21 18:45 Source: patient Exam Limitations: no limitations Patient Subjective Stated Complaint: pt here for vomiting since having teeth pulled 3 days ago, co pain to teeth where teeth pulled. vomited more than 10 mundo es today Triage Nursing Assessment: pt alert, resp easy, skin w/d/p,mucus membranes moist, face mask on, she states she tool some of her grandmas pain meds yesterday Physician History: Patient is a 25-year-old female presents to our ED with complaint of nausea and vomiting. Patient states that her symptoms started approximately 3 days ago when she had her teeth pulled. Patient has been on Ultram for pain control. Patient states the Ultram may have been contributing to the nausea or vomiting. Patient states she feels dehydrated. Patient states her urine output is somewhat decreased. Urine is more yellow than normal. No hematuria or dysuria. No fever. No abdominal pain. Patient states that she has supplemented her Ultram pain medication with her grandmothers Wally. Patient advised that this is not a good idea. Patient voiced no other complaints concerns at this time. Timing/Duration: day(s) (3 days) Severity: moderate Modifying Factors: Improves With: nothing Associated Symptoms: nausea, vomiting, No abdominal pain, No shortness of breath, No diaphoresis, No cough, No chills, No fever, No loss of appetite, No syncope, No seizure, No weakness Allergies/Adverse Reactions: adhesive tape Allergy (Intermediate, Verified 03/19/21 18:34) Blisters [place] Allergy (Verified 03/19/21 18:34) paroxetine HCl [From Paxil] Adverse Reaction (Verified 03/19/21 18:34) Nausea Home Medications: Bupropion HCl [Wellbutrin Xl] 1 tab PO DAILY 01/29/19 [History] hydrOXYzine pamoate [Vistaril] 50 mg PO BID PRN PRN 01/29/19 [History] Trazodone HCl 150 mg [Desyrel 150 MG] 150 mg PO HS 03/23/19 [History] risperiDONE [Risperidone] 3 mg PO HS 03/23/19 [History] Amoxicillin [Amoxil] 1 ea TID 03/19/21 [History] Gabapentin 1 ea BID 03/19/21 [History] Gabapentin Enacarbil [Horizant] 1 ea BID 03/19/21 [History] Levothyroxine Sodium 75 Mcg [Synthroid 75 Mcg] 1 ea DAILY 03/19/21 [History] Pramipexole Di-HCl 0.5 mg [Mirapex 0.5 MG Tablet] 1 ea DAILY 03/19/21 [History] Tizanidine HCl 1 ea BID 03/19/21 [History] Tramadol HCl 50 mg [Ultram 50 mg] 1 ea TID 03/19/21 [History] Hx Tetanus, Diphtheria Vaccination/Date Given: No Hx Influenza Vaccination/Date Given: Yes Hx Pneumococcal Vaccination/Date Given: No Immunizations Up to Date: Yes Travel Risk - International Travel Have you traveled outside of the country in past 3 weeks: No - Coronavirus Screening Are you exhibiting any of the following symptoms?: No - Vaccine Status Have you recieved a Covid-19 vaccination: Yes 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: [employer] - Vaccination Dates Date of 2cond Vaccination (if applicable): unknown Comment: unknown - Review of Systems Constitutional: No Symptoms, No Fever, No Chills Eyes: No Symptoms Ears, Nose, & Throat: No Symptoms Respiratory: No Symptoms, No Cough, No Dyspnea Cardiac: No Symptoms, No Chest Pain, No Edema, No Syncope Abdominal/Gastrointestinal: No Symptoms, No Abdominal Pain, No Nausea, No Vomiting, No Diarrhea Genitourinary Symptoms: No Symptoms, No Dysuria Musculoskeletal: No Symptoms, No Back Pain, No Neck Pain Skin: No Symptoms, No Rash Neurological: No Symptoms, No Dizziness, No Focal Weakness, No Sensory Changes Psychological: No Symptoms Endocrine: No Symptoms Hematologic/Lymphatic: No Symptoms Immunological/Allergic: No Symptoms All Other Systems: Reviewed and Negative - Past Medical History Pertinent Past Medical History: Yes Neurological History: Migraines ENT History: No Pertinent History Cardiac History: No Pertinent History Respiratory History: Asthma Endocrine Medical History: No Pertinent History Musculoskeletal History: No Pertinent History GI Medical History: Crohns Disease, GERD, Gallbladder Disease, Irritable Bowel History: No Pertinent History Psycho-Social History: Anxiety, Depression Female Reproductive Disorders: Other Other Medical History: Reports Crohns; cysts on ovaries - Past Surgical History Past Surgical History: Yes Neuro Surgical History: No Pertinent History Cardiac: No Pertinent History Respiratory: No Pertinent History Gastrointestinal: Cholecystectomy Genitourinary: Other Musculoskeletal: Orthopedic Surgery Female Surgical History: Section Other Surgical History: right rotator cuff repair. Ear tubes bilat,ovarian cyst 2017. ovarian cyst removal jun 2016. colonscopy jun 2016 - Social History Smoking Status: Current every day smoker How long have you smoked: 1 year Exposure to second hand smoke: Yes Alcohol Use: None Drug Use: none Patient Lives Alone: No Significant Family History: no pertinent family hx - Female History Hx Last Menstrual Period: unsure Hx Now: No - Nursing Vital Signs Nursing Vital Signs: Initial Vital Signs Temperature 98.3 F 03/19/21 18:38 Pulse Rate 107 H 03/19/21 18:38 Respiratory Rate 18 03/19/21 18:38 Blood Pressure 133/105 03/19/21 18:38 O2 Sat by Pulse Oximetry 98 03/19/21 18:38 Pain Scale Pain Intensity 7 - Physical Exam General Appearance: no apparent distress, alert Eye Exam: PERRL/EOMI, eyes nml inspection Ears, Nose, Throat Exam: normal ENT inspection, TMs normal, pharynx normal, m oist mucous membranes Neck Exam: normal inspection, non-tender, supple, full range of motion Respiratory Exam: normal breath sounds, lungs clear, No respiratory distress Cardiovascular Exam: regular rate/rhythm, normal heart sounds, normal peripheral pulses Gastrointestinal/Abdomen Exam: soft, normal bowel sounds, No tenderness, No mass Back Exam: normal inspection, normal range of motion, No CVA tenderness, No vertebral tenderness Extremity Exam: normal inspection, normal range of motion, pelvis stable Neurologic Exam: alert, oriented x 3, cooperative, normal mood/affect, sensation nml, No motor deficits Skin Exam: normal color, warm, dry, No rash Lymphatic Exam: No adenopathy SpO2 Interpretation: normal SpO2: 99 O2 Delivery: Room Air - Course Nursing assessment & vital signs reviewed: Yes Ordered Tests: Active Orders 24 hr Category Date Time Status IV Insertion STAT Care 03/19/21 18:43 Active CBC W DIFF Stat Lab 03/19/21 19:05 Completed CMP Stat Lab 03/19/21 19:05 Completed CULTURE,URINE Stat Lab 03/19/21 18:54 Received HCG,QUALITATIVE URINE Stat Lab 03/19/21 18:54 Completed UA W/RFX UR CULTURE Stat Lab 03/19/21 18:54 Completed Medication Summary Generic Name Dose Route Start Last Admin Trade Name Freq PRN Reason Stop Dose Admin Ceftriaxone Sodium/Dextrose 1 g in 50 mls @ 100 mls/hr 03/19/21 20:03 Rocephin 1 Gm-D5w 50 Ml Bag IV 03/19/21 20:32 STAT STA Sodium Chloride 500 mls @ 500 mls/hr 03/19/21 20:03 Sodium Chloride 0.9% 500 Ml IV 03/19/21 21:02 .Q1H ONE Discontinued Medications Generic Name Dose Route Start Last Admin Trade Name Dimple PRN Reason Stop Dose Admin Sodium Chloride 1,000 mls @ 999 mls/hr 03/19/21 18:43 03/19/21 19:09 Sodium Chloride 0.9% 1000 Ml IV 03/19/21 19:43 999 mls/hr .Q1H1M STA Administration Sodium Chloride Confirm 03/19/21 19:08 Sodium Chloride 0.9% 1000 Ml Administered 03/19/21 19:09 Dose 1,000 mls @ ud .ROUTE .STK-MED ONE Ketorolac Tromethamine 30 mg 03/19/21 18:43 03/19/21 19:09 Ketorolac Tromethamine 30 Mg/Ml Inj IV 03/19/21 18:44 30 mg STAT ONE Administration Ketorolac Tromethamine Confirm 03/19/21 19:08 Ketorolac Tromethamine 30 Mg/Ml Inj Administered 03/19/21 19:09 Dose 30 mg .ROUTE .STK-MED ONE Lab/Rad Data: Laboratory Result Diagrams 03/19/21 19:05 03/19/21 19:05 Laboratory Results 03/19/21 03/19/21 03/19/21 Range/Units 19:05 19:05 18:54 WBC 12.0 H (4.0-10.5) K/mm3 RBC 4.63 (4.1-5.4) M/mm3 Hgb 13.8 (12.0-16.0) gm/dl Hct 42.4 (35-47) % MCV 91.6 (78-100) fl MCH 29.8 (26-32) pg MCHC 32.5 (32-36) g/dl RDW 13.8 (11.5-14.0) % Plt Count 271 (150-450) K/mm3 MPV 8.8 (7.5-11.0) fl Gran % 54.2 (36.0-66.0) % Eos # (Auto) 0.37 (0-0.5) Absolute Lymphs (auto) 4.22 (1.0-4.6) Absolute Monos (auto) 0.85 (0.0-1.3) Lymphocytes % 35.2 (24.0-44.0) % Monocytes % 7.1 (0.0-12.0) % Eosinophils % 3.1 (0.00-5.0) % Basophils % 0.4 (0.0-0.4) % Absolute Granulocytes 6.49 (1.4-6.9) Basophils # 0.05 (0-0.4) Sodium 139 (137-145) mmol/L Potassium 4.1 (3.5-5.1) mmol/L Chloride 108 H (98-107) mmol/L Carbon Dioxide 20 L (22-30) mmol/L Anion Gap 14.8 (5-15) MEQ/L BUN 7 (7-17) mg/dL Creatinine 0.86 (0.52-1.04) mg/dL Estimated GFR > 60.0 ML/MIN Glucose 94 (74-106) mg/dL Calcium 9.5 (8.4-10.2) mg/dL Total Bilirubin 0.40 (0.2-1.3) mg/dL AST 24 (14-36) U/L ALT 15 (0-35) U/L Alkaline Phosphatase 114 (38-126) U/L Serum Total Protein 7.4 (6.3-8.2) g/dL Albumin 4.3 (3.5-5.0) g/dL Urine Color (YELLOW) Urine Appearance (CLEAR) Urine pH (5-6) Ur Specific [place] (1.005-1.025) Urine Protein (Negative) Urine Ketones (NEGATIVE) Urine Blood (0-5) [place]/ul Urine Nitrite (NEGATIVE) Urine Bilirubin (NEGATIVE) Urine Urobilinogen (0-1) mg/dL Ur Leukocyte Esterase (NEGATIVE) Urine WBC (Auto) (0-5) /HPF Urine RBC (Auto) (0-2) /HPF U Epithel Cells (Auto) (FEW) /HPF Urine Bacteria (Auto) (NEGATIVE) /HPF Urine Mucus (Auto) (NEGATIVE) /HPF Urine Culture Reflexed (NO) Urine Glucose (NEGATIVE) mg/dL Urine HCG, Qual NEGATIVE (Negative) 03/19/21 Range/Units 18:54 WBC (4.0-10.5) K/mm3 RBC (4.1-5.4) M/mm3 Hgb (12.0-16.0) gm/dl Hct (35-47) % MCV (78-100) fl MCH (26-32) pg MCHC (32-36) g/dl RDW (11.5-14.0) % Plt Count (150-450) K/mm3 MPV (7.5-11.0) fl Gran % (36.0-66.0) % Eos # (Auto) (0-0.5) Absolute Lymphs (auto) (1.0-4.6) Absolute Monos (auto) (0.0-1.3) Lymphocytes % (24.0-44.0) % Monocytes % (0.0-12.0) % Eosinophils % (0.00-5.0) % Basophils % (0.0-0.4) % Absolute Granulocytes (1.4-6.9) Basophils # (0-0.4) Sodium (137-145) mmol/L Potassium (3.5-5.1) mmol/L Chloride (98-107) mmol/L Carbon Dioxide (22-30) mmol/L Anion Gap (5-15) MEQ/L BUN (7-17) mg/dL Creatinine (0.52-1.04) mg/dL Estimated GFR ML/MIN Glucose (74-106) mg/dL Calcium (8.4-10.2) mg/dL Total Bilirubin (0.2-1.3) mg/dL AST (14-36) U/L ALT (0-35) U/L Alkaline Phosphatase (38-126) U/L Serum Total Protein (6.3-8.2) g/dL Albumin (3.5-5.0) g/dL Urine Color YELLOW (YELLOW) Urine Appearance CLOUDY (CLEAR) Urine pH 5.0 (5-6) Ur Specific [place] 1.031 (1.005-1.025) Urine Protein NEGATIVE (Negative) Urine Ketones NEGATIVE (NEGATIVE) Urine Blood NEGATIVE (0-5) [place]/ul Urine Nitrite NEGATIVE (NEGATIVE) Urine Bilirubin NEGATIVE (NEGATIVE) Urine Urobilinogen NEGATIVE (0-1) mg/dL Ur Leukocyte Esterase SMALL (NEGATIVE) Urine WBC (Auto) 6-10 (0-5) /HPF Urine RBC (Auto) 3-5 (0-2) /HPF U Epithel Cells (Auto) MODERATE (FEW) /HPF Urine Bacteria (Auto) RARE (NEGATIVE) /HPF Urine Mucus (Auto) SLIGHT (NEGATIVE) /HPF Urine Culture Reflexed YES (NO) Urine Glucose NEGATIVE (NEGATIVE) mg/dL Urine HCG, Qual (Negative) - Progress Progress: improved Progress Note: Patient reassessed. She feels much better. Tachycardia resolved. Patient received 1.5 L of normal saline. A 1 g dose of Rocephin infused as well to address UTI. Patient tolerating p.o. Patient states he is ready for discharge. No indication for further work-up at this time. Patient agrees to follow-up with her primary care doctor within 48 hours for reevaluation. Portions of this note were created with voice recognition technology. There may be grammatical, spelling, punctuation or sound alike errors 03/19/21 20:21 Counseled pt/family regarding: diagnosis, need for follow-up - Departure Departure Disposition: Home Clinical Impression: Nausea and vomiting, Dehydration, UTI (urinary tract infection), Leukocytosis Condition: Stable Critical Care Time: No Referrals: PENNY SILVA [Primary Care Provider] - Follow up/PCP as directed Additional Instructions: Discharge/Care Plan LIGIA MULLIGAN was seen on 03/19/21 in the Emergency Room. The patient was counseled regarding Diagnosis,Lab results, Imaging studies, need for follow up and when to return to the Emergency Room. Prescriptions given: Discharge Note I have spoken with the patient and/or caregivers. I have explained the patient's condition, diagnosis and treatment plan based on the information available to me at this time. I have answered the patient's and/or caregiver's questions and addressed any concerns. The patient and/or caregivers have as good understanding of the patient's diagnosis, condition and treatment plan as can be expected at this point. The vital signs have been stable. The patient's condition is stable and appropriate for discharge from the emergency department. The patient will pursue further outpatient evaluation with the primary care physician or other designated or consulting physician as outlined in the discharge instructions. The patient and/or caregivers are agreeable to this plan of care and follow-up instructions have been explained in detail. The patient and/or caregivers have received these instruction. The patient/and or caregivers are aware that any significant change in condition or worsening of symptoms s hould prompt an immediate return to this or the closest emergency department or call 911. Prescriptions: Nitrofurantoin Macro 100 mg [Macrobid 100MG Capsule] 100 mg PO BID 7 Days #14 cap
== END 2021-03-19 20:47 | disposition home or self-care (01) ==
LOC: ED 18:29
DX: N39.0 Urinary tract infection, site not specified (principal); R11.2 Nausea with vomiting, unspecified; E86.0 Dehydration; D72.829 Elevated white blood cell count, unspecified; Z72.0 Tobacco use
CPT/HCPCS: 36000; 36415; 80053; 81001; 84703; 85025; 87086; 96365; 96374; 99284; J0696; J1885

== ENCOUNTER 2021-03-27 21:32 | Emergency (ER) | payer OTHER ==
[2021-03-27 22:00] LABS: Absolute Neutrophil Ct (ANC) 7.11 (1.4-6.9); BASOPHIL % 0.5 % (0.0-0.4); Basophil (Absolute #) 0.07 (0-0.4); Eosinophil % 2.3 % (0.00-5.0); Eosinophil (Absolute #) 0.33 (0-0.5); Hematocrit 37.8 % (35-47); Hemoglobin 12.4 gm/dl (12.0-16.0); Lymphocyte (Absolute #) 5.56 (1.0-4.6); Lymphocytes % 39.5 % (24.0-44.0); Mean Cell Volume 92.4 fl (78-100); Mean Corpuscular Hemoglobin 30.3 pg (26-32); Mean Corpuscular Hgb Concent. 32.8 g/dl (32-36); Mean Platelet Volume 9.2 fl (7.5-11.0); Monocytes % 7.1 % (0.0-12.0); Neutrophil % 50.6 % (36.0-66.0); Platelet Count 303 K/mm3 (150-450); Red Blood Count 4.09 M/mm3 (4.1-5.4); Red Cell Distribution Width 14.4 % (11.5-14.0); White Blood Count 14.1 K/mm3 (4.0-10.5)
[2021-03-27] MEDS ORDERED: MORPHINE SULFATE 2 MG INJ ONE (22:01)
[2021-03-27] MEDS ORDERED: Zofran 4 MG/2 ML VIAL ONE (22:01)
[2021-03-27] MEDS ORDERED: BABY ASPIRIN 81 MG CHEW ONE (22:01)
[2021-03-27] MEDS: BABY ASPIRIN 81 MG CHEW PO ONE (22:05)
[2021-03-27] MEDS: Zofran 4 MG/2 ML VIAL IV ONE (22:05)
[2021-03-27] MEDS: MORPHINE SULFATE 2 MG INJ IV ONE (22:07)
[2021-03-27 22:08] LABS: ALBUMIN 3.8 g/dL (3.5-5.0); ALKALINE PHOSPHATASE 89 U/L (38-126); ANION GAP 12.3 MEQ/L (5-15); BLOOD UREA NITROGEN 7 mg/dL (7-17); CHLORIDE 109 mmol/L (98-107); Calcium 8.9 mg/dL (8.4-10.2); Carbon Dioxide 22 mmol/L (22-30); Creatinine 1 0.82 mg/dL (0.52-1.04); EST GLOMERULAR FILTRATION RATE > 60.0 ML/MIN; Glucose 102 mg/dL (74-106); SGOT/AST 22 U/L (14-36); SGPT/ALT 15 U/L (0-35); SODIUM 139 mmol/L (137-145); Total Protein 6.4 g/dL (6.3-8.2)
--- NOTE | 2021-03-27 22:11 | ERPHSYRPT ---
- History of Present Illness Time Seen by Provider: 03/27/21 21:40 Historian: patient Exam Limitations: no limitations Physician History: This is a 25-year-old white female who presents with 3 to 4-day history of left chest pain that radiates straight through to her back on the left side and into her left shoulder. Today the pain was worse and no longer intermittent. Patient does see a application integrator, Dr. Meeks. He sees her for some rhythm issues. She has never had a myocardial infarction and has no known coronary artery disease. Patient denies shortness of breath. She denies abdominal pain. She has no nausea vomiting or diarrhea. Patient has history of migraine headaches, anxiety and depression issues. Timing/Duration: day(s) (3 to 4 days), worse Activities at Onset: none Location: other (Left anterior chest) Chest Pain Radiation: back Severity of Pain-Max: moderate Severity of Pain-Current: moderate Modifying Factors: Improves With: nothing Associated Symptoms: denies symptoms Nitro Today/Relief: no nitro taken today Aspirin Treatment Today: no aspirin today Allergies/Adverse Reactions: adhesive tape Allergy (Intermediate, Verified 03/19/21 18:34) Blisters [place] Allergy (Verified 03/19/21 18:34) paroxetine HCl [From Paxil] Adverse Reaction (Verified 03/19/21 18:34) Nausea Home Medications: Bupropion HCl [Wellbutrin Xl] 1 tab PO DAILY 01/29/19 [History] hydrOXYzine pamoate [Vistaril] 50 mg PO BID PRN PRN 01/29/19 [History] Trazodone HCl 150 mg [Desyrel 150 MG] 150 mg PO HS 03/23/19 [History] risperiDONE [Risperidone] 3 mg PO HS 03/23/19 [History] Amoxicillin [Amoxil] 1 ea TID 03/19/21 [History] Gabapentin Enacarbil [Horizant] 1 ea BID 03/19/21 [History] Levothyroxine Sodium 75 Mcg [Synthroid 75 Mcg] 1 ea DAILY 03/19/21 [History] Pramipexole Di-HCl 0.5 mg [Mirapex 0.5 MG Tablet] 1 ea PO DAILY 03/19/21 [History] Tizanidine HCl 1 ea TID 03/19/21 [History] Hx Tetanus, Diphtheria Vaccination/Date Given: No Hx Influenza Vaccination/Date Given: Yes Hx Pneumococcal Vaccination/Date Given: No Travel Risk - International Travel Have you traveled outside of the country in past 3 weeks: No - Coronavirus Screening Are you exhibiting any of the following symptoms?: No Close contact with a COVID-19 positive Pt in past 14-21 Days: No - Vaccine Status Have you recieved a Covid-19 vaccination: Yes 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 - Vaccination Dates Date of 2cond Vaccination (if applicable): unknown Comment: unknown - Review of Systems Constitutional: No Symptoms Eyes: No Symptoms Ears, Nose, & Throat: No Symptoms Respiratory: No Symptoms Cardiac: Chest Pain Abdominal/Gastrointestinal: No Symptoms Genitourinary Symptoms: No Symptoms Musculoskeletal: No Symptoms Skin: No Symptoms Neurological: No Symptoms Psychological: No Symptoms Endocrine: No Symptoms Hematologic/Lymphatic: No Symptoms Immunological/Allergic: No Symptoms All Other Systems: Reviewed and Negative - Past Medical History Pertinent Past Medical History: Yes Neurological History: Migraines ENT History: No Pertinent History Cardiac History: No Pertinent History Respiratory History: Asthma Endocrine Medical History: No Pertinent History Musculoskeletal History: No Pertinent History GI Medical History: Crohns Disease, GERD, Gallbladder Disease, Irritable Bowel History: No Pertinent History Psycho-Social History: Anxiety, Depression Female Reproductive Disorders: Other Other Medical History: Reports Crohns; cysts on ovaries - Past Surgical History Past Surgical History: Yes Neuro Surgical History: No Pertinent History Cardiac: No Pertinent History Respiratory: No Pertinent History Gastrointestinal: Cholecystectomy Genitourinary: Other Musculoskeletal: Orthopedic Surgery Female Surgical History: Section Other Surgical History: right rotator cuff repair. Ear tubes bilat,ovarian cyst 2017. ovarian cyst removal jun 2016. colonscopy jun 2016 - Social History Smoking Status: Current every day smoker How long have you smoked: 1 year Exposure to second hand smoke: Yes Alcohol Use: None Drug Use: none Patient Lives Alone: No Significant Family History: no pertinent family hx - Female History Hx Now: No - Nursing Vital Signs Nursing Vital Signs: Initial Vital Signs Pulse Rate 65 03/27/21 22:46 Respiratory Rate 16 03/27/21 22:46 Blood Pressure 105/71 03/27/21 22:46 O2 Sat by Pulse Oximetry 98 03/27/21 22:46 Pain Scale Pain Intensity 3 - Physical Exam General Appearance: no apparent distress, alert, anxiety Eye Exam: PERRL/EOMI, eyes nml inspection Ears, Nose, Throat Exam: normal ENT inspection, moist mucous membranes Neck Exam: normal inspection, non-tender, supple, full range of motion Respiratory Exam: normal breath sounds, chest tenderness, lungs clear, airway intact, No respiratory distress Cardiovascular Exam: regular rate/rhythm, normal heart sounds, normal peripheral pulses Gastrointestinal/Abdomen Exam: soft, normal bowel sounds, No tenderness Pelvic Exam: not done Rectal Exam: not done Back Exam: normal inspection, normal range of motion, No CVA tenderness, No vertebral tenderness Extremity Exam: normal inspection, normal range of motion, pelvis stable Neurologic Exam: alert, oriented x 3, cooperative, gasoline finisher II-XII nml as tested, normal mood/affect, nml cerebellar function, nml station & gait, sensation nml Skin Exam: normal color, warm, dry Lymphatic Exam: No adenopathy SpO2 Interpretation: normal O2 Delivery: Room Air - Course Nursing assessment & vital signs reviewed: Yes EKG Interpreted by Me: RATE (78), Sinus Rhythm, NORMAL AXIS, NORMAL INTERVALS, NORMAL QRS, NORMAL ST-T, Other (No acute ischemic changes on today's EKG. There are no changes when compared to EKG dated 11/14/2020) Ordered Tests: Active Orders 24 hr Category Date Time Status Anode Builder STAT Care 03/27/21 21:52 Active EKG-ER Only STAT Care 03/27/21 21:51 Active IV Insertion STAT Care 03/27/21 21:51 Active CHEST 1 VIEW (PORTABLE) Stat Exams 03/27/21 21:58 Taken CBC W DIFF Stat Lab 03/27/21 21:56 Completed CMP Stat Lab 03/27/21 21:56 Completed D-DIMER QUANTITATIVE Stat Lab 03/27/21 21:56 Completed HCG QUALITATIVE,SERUM Stat Lab 03/27/21 22:06 Completed TROPONIN Q3H Lab 03/27/21 21:56 Completed TROPONIN Q3H Lab 03/28/21 01:00 Ordered TROPONIN Q3H Lab 03/28/21 04:00 Ordered TROPONIN Q3H Lab 03/28/21 07:00 Ordered TROPONIN Q3H Lab 03/28/21 10:00 Ordered Medication Summary Discontinued Medications Generic Name Dose Route Start Last Admin Trade Name Freq PRN Reason Stop Dose Admin Aspirin 324 mg 03/27/21 21:51 03/27/21 22:05 Aspirin 81 Mg Tab.Chew PO 03/27/21 21:52 324 mg STAT ONE Administration Aspirin Confirm 03/27/21 22:01 Aspirin 81 Mg Tab.Chew Administered 03/27/21 22:02 Dose 324 mg .ROUTE .STK-MED ONE Morphine Sulfate 2 mg 03/27/21 21:51 03/27/21 22:07 Morphine Sulfate 2 Mg/Ml Inj IV 03/27/21 21:52 2 mg STAT ONE Administration Morphine Sulfate Confirm 03/27/21 22:01 Morphine Sulfate 2 Mg/Ml Inj Administered 03/27/21 22:02 Dose 2 mg .ROUTE .STK-MED ONE Ondansetron HCl 4 mg 03/27/21 21:51 03/27/21 22:05 Ondansetron Hcl 4 Mg/2 Ml Vial IV 03/27/21 21:52 4 mg STAT ONE Administration Ondansetron HCl Confirm 03/27/21 22:01 Ondansetron Hcl 4 Mg/2 Ml Vial Administered 03/27/21 22:02 Dose 4 mg .ROUTE .STK-MED ONE Lab/Rad Data: Laboratory Result Diagrams 03/27/21 21:56 03/27/21 21:56 Laboratory Results 03/27/21 03/27/21 03/27/21 Range/Units 22:06 21:56 21:56 WBC (4.0-10.5) K/mm3 RBC (4.1-5.4) M/mm3 Hgb (12.0-16.0) gm/dl Hct (35-47) % MCV (78-100) fl MCH (26-32) pg MCHC (32-36) g/dl RDW (11.5-14.0) % Plt Count (150-450) K/mm3 MPV (7.5-11.0) fl Gran % (36.0-66.0) % Eos # (Auto) (0-0.5) Absolute Lymphs (auto) (1.0-4.6) Absolute Monos (auto) (0.0-1.3) Lymphocytes % (24.0-44.0) % Monocytes % (0.0-12.0) % Eosinophils % (0.00-5.0) % Basophils % (0.0-0.4) % Absolute Granulocytes (1.4-6.9) Basophils # (0-0.4) D-Dimer 359 (215-500) ng/mL Sodium (137-145) mmol/L Potassium (3.5-5.1) mmol/L Chloride (98-107) mmol/L Carbon Dioxide (22-30) mmol/L Anion Gap (5-15) MEQ/L BUN (7-17) mg/dL Creatinine (0.52-1.04) mg/dL Estimated GFR ML/MIN Glucose (74-106) mg/dL Calcium (8.4-10.2) mg/dL Total Bilirubin (0.2-1.3) mg/dL AST (14-36) U/L ALT (0-35) U/L Alkaline Phosphatase (38-126) U/L Troponin I < 0.012 (0.000-0.034) ng/mL Serum Total Protein (6.3-8.2) g/dL Albumin (3.5-5.0) g/dL Serum , Qual NEGATIVE (Negative) 03/27/21 03/27/21 Range/Units 21:56 21:56 WBC 14.1 H (4.0-10.5) K/mm3 RBC 4.09 L (4.1-5.4) M/mm3 Hgb 12.4 (12.0-16.0) gm/dl Hct 37.8 (35-47) % MCV 92.4 (78-100) fl MCH 30.3 (26-32) pg MCHC 32.8 (32-36) g/dl RDW 14.4 H (11.5-14.0) % Plt Count 303 (150-450) K/mm3 MPV 9.2 (7.5-11.0) fl Gran % 50.6 (36.0-66.0) % Eos # (Auto) 0.33 (0-0.5) Absolute Lymphs (auto) 5.56 H (1.0-4.6) Absolute Monos (auto) 1.00 (0.0-1.3) Lymphocytes % 39.5 (24.0-44.0) % Monocytes % 7.1 (0.0-12.0) % Eosinophils % 2.3 (0.00-5.0) % Basophils % 0.5 (0.0-0.4) % Absolute Granulocytes 7.11 H (1.4-6.9) Basophils # 0.07 (0-0.4) D-Dimer (215-500) ng/mL Sodium 139 (137-145) mmol/L Potassium 4.0 (3.5-5.1) mmol/L Chloride 109 H (98-107) mmol/L Carbon Dioxide 22 (22-30) mmol/L Anion Gap 12.3 (5-15) MEQ/L BUN 7 (7-17) mg/dL Creatinine 0.82 (0.52-1.04) mg/dL Estimated GFR > 60.0 ML/MIN Glucose 102 (74-106) mg/dL Calcium 8.9 (8.4-10.2) mg/dL Total Bilirubin 0.30 (0.2-1.3) mg/dL AST 22 (14-36) U/L ALT 15 (0-35) U/L Alkaline Phosphatase 89 (38-126) U/L Troponin I (0.000-0.034) ng/mL Serum Total Protein 6.4 (6.3-8.2) g/dL Albumin 3.8 (3.5-5.0) g/dL Serum , Qual (Negative) - Progress Progress: improved Air Movement: good Progress Note: 03/27/21 23:23 Chest x-ray shows no acute cardiopulmonary process. Medical decision making: This patient has leukocytosis. She is taking 2 different antibiotics and she is to continue this therapy. She can follow-up with her primary care physician as outpatient for further management Blood Culture(s) Obtained: No Antibiotics given: No Counseled pt/family regarding: lab results, diagnosis, need for follow-up, rad results - Departure Departure Disposition: Home Clinical Impression: Leukocytosis, Non-cardiac chest pain Condition: Stable Critical Care Time: No Referrals: PENNY SILVA [Primary Care Provider] - Follow up/PCP as directed Additional Instructions: Take all your medication as prescribed. Follow-up with your primary care physician for further management.
[2021-03-27 23:36] LABS: Slide Review 1 YES
[2021-03-27 23:54] VITALS: BP 100/50; PULSE 72; O2SAT 99
--- NOTE | 2021-03-28 08:50 | XRAY ---
Indication: Chest pain. Comparison: March 17, 2021. Portable chest demonstrates normal heart, lungs, and bony thorax.
== END 2021-03-27 23:55 | disposition home or self-care (01) ==
LOC: ED 21:32
DX: R07.89 Other chest pain (principal); D72.829 Elevated white blood cell count, unspecified; Z72.0 Tobacco use
CPT/HCPCS: 36000; 36415; 71045; 80053; 81025; 84484; 85025; 85379; 93005; 93041; 96374; 96375; 99284; J2270; J2405; A9270-GY

== ENCOUNTER 2021-04-29 11:09 | Emergency (ER) | payer OTHER ==
--- NOTE | 2021-04-29 11:55 | ERPHSYRPT ---
- History of Present Illness Time Seen by Provider: 04/29/21 11:40 Source: patient Exam Limitations: no limitations Patient Subjective Stated Complaint: pt reports that while she was riding in the car with her boyfriend he states she started acting strange and almost passed out, at this time pt's only complaint is that she feels tired, denies any headache, nasuea, pain or injury. Triage Nursing Assessment: pt is aox3, pt ambulatory to t area with steady normal gait, pupils perrl, afebrile, speech is normal, answers questions appropriately, radial pulses strong, equal, pt is tachycardic, cap refill < 2 seconds, pt abd soft, pt skin pink warm dry. Physician History: This is a 25-year-old white female who presents with weakness and question of altered mental status. Patient does not recall all the events. However, her boyfriend brought her to the hospital because she appeared to almost pass out. Patient denies using any other medication or illicit drugs other than the medication she is supposed to be taking. She denies head injury. Patient does have a type of cardiac rhythm issue that she does not recall the name of. Patient denies chest pain. She denies shortness of breath. She does have a history of migraine headache, anxiety, depression, hypothyroidism, irritable bowel syndrome, gastroesophageal reflux disease and Crohn's disease. She has not had any fevers. She denies nausea vomiting or diarrhea. She has no abdominal pain Timing/Duration: today Allergies/Adverse Reactions: adhesive tape Allergy (Intermediate, Verified 04/29/21 11:37) Blisters [place] Allergy (Verified 04/29/21 11:37) paroxetine HCl [From Paxil] Adverse Reaction (Verified 04/29/21 11:37) Nausea Home Medications: Bupropion HCl [Wellbutrin Xl] 1 tab PO DAILY 01/29/19 [History] hydrOXYzine pamoate [Vistaril] 50 mg PO BID PRN PRN 01/29/19 [History] Trazodone HCl 150 mg [Desyrel 150 MG] 150 mg PO HS 03/23/19 [History] risperiDONE [Risperidone] 3 mg PO HS 03/23/19 [History] Gabapentin Enacarbil [Horizant] 1 ea BID 03/19/21 [History] Levothyroxine Sodium 75 Mcg [Synthroid 75 Mcg] 1 ea DAILY 03/19/21 [History] Pramipexole Di-HCl 0.5 mg [Mirapex 0.5 MG Tablet] 1 ea PO DAILY 03/19/21 [History] Tizanidine HCl 1 ea TID 03/19/21 [History] Hx Tetanus, Diphtheria Vaccination/Date Given: Yes Hx Influenza Vaccination/Date Given: No Hx Pneumococcal Vaccination/Date Given: No Immunizations Up to Date: Yes Travel Risk - International Travel Have you traveled outside of the country in past 3 weeks: No - Coronavirus Screening Are you exhibiting any of the following symptoms?: No Close contact with a COVID-19 positive Pt in past 14-21 Days: No - Vaccine Status Have you recieved a Covid-19 vaccination: Yes 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: [employer] - Vaccination Dates Date of 2cond Vaccination (if applicable): 12/03/2020 - Past Medical History Pertinent Past Medical History: Yes Neurological History: Migraines ENT History: No Pertinent History Cardiac History: No Pertinent History Respiratory History: Asthma Endocrine Medical History: No Pertinent History Musculoskeletal History: No Pertinent History GI Medical History: Irritable Bowel, Crohns Disease, GERD, Gallbladder Disease History: No Pertinent History Psycho-Social History: Depression, Anxiety Female Reproductive Disorders: Other Other Medical History: Reports Crohns; cysts on ovaries - Past Surgical History Past Surgical History: Yes Neuro Surgical History: No Pertinent History Cardiac: No Pertinent History Respiratory: No Pertinent History Gastrointestinal: Cholecystectomy Genitourinary: Other Musculoskeletal: Orthopedic Surgery Female Surgical History: Section Other Surgical History: right rotator cuff repair. Ear tubes bilat,ovarian cyst 2017. ovarian cyst removal jun 2016. colonscopy jun 2016 - Social History Smoking Status: Current every day smoker How long have you smoked: 1 year Exposure to second hand smoke: Yes Alcohol Use: None Drug Use: none Patient Lives Alone: No Significant Family History: no pertinent family hx - Female History Hx Last Menstrual Period: depot injection for bc Hx Now: No - Nursing Vital Signs Nursing Vital Signs: Initial Vital Signs Temperature 98.8 F 04/29/21 11:24 Pulse Rate 124 H 04/29/21 11:24 Respiratory Rate 20 04/29/21 11:24 Blood Pressure 113/78 04/29/21 11:24 O2 Sat by Pulse Oximetry 95 04/29/21 11:24 Pain Scale Pain Intensity 7 - Physical Exam SpO2: 95 - Course Nursing assessment & vital signs reviewed: Yes EKG Interpreted by Me: RATE (125), Sinus Tach, NORMAL AXIS, Other (When compared to EKG dated 03/27/2021 there is a new sinus tachycardia with borderline Q waves in the inferior leads and borderline T abnormalities diffusely. Patient denies chest pain) Ordered Tests: Active Orders 24 hr Category Date Time Status Ekg Technician STAT Care 04/29/21 11:51 Active Clean Catch Urine Specimen STAT Care 04/29/21 12:03 Active EKG-ER Only STAT Care 04/29/21 11:50 Active IV Insertion STAT Care 04/29/21 11:50 Active Pulse Oximetry (ED) STAT Care 04/29/21 11:50 Active HEAD WITHOUT CONTRAST [CT] Stat Exams 04/29/21 12:17 Taken BLOOD CULTURE Stat Lab 04/29/21 12:15 Received CBC W DIFF Stat Lab 04/29/21 11:45 Completed CMP Stat Lab 04/29/21 11:45 Completed CULTURE,URINE Stat Lab 04/29/21 11:57 Received D-DIMER QUANTITATIVE Stat Lab 04/29/21 11:45 Completed HCG,QUALITATIVE URINE Stat Lab 04/29/21 11:57 Completed INFLUENZA A+B YARED Stat Lab 04/29/21 12:40 Completed MAGNESIUM Stat Lab 04/29/21 11:45 Completed Cuming Screen Stat Lab 04/29/21 12:15 Completed NT PRO BNP Stat Lab 04/29/21 11:45 Completed PROTIME WITH INR Stat Lab 04/29/21 11:45 Completed T4 (Thyroxine) Stat Lab 04/29/21 11:45 Completed TROPONIN Q3H Lab 04/29/21 11:45 Completed TROPONIN Q3H Lab 04/29/21 15:00 Ordered TROPONIN Q3H Lab 04/29/21 18:00 Ordered TROPONIN Q3H Lab 04/29/21 21:00 Ordered TROPONIN Q3H Lab 04/30/21 00:00 Ordered TSH, 3RD Generation Stat Lab 04/29/21 11:45 Completed UA W/RFX UR CULTURE Stat Lab 04/29/21 11:57 Completed Urine Triage Profile Stat Lab 04/29/21 12:15 Completed Medication Summary Generic Name Dose Route Start Last Admin Trade Name Freq PRN Reason Stop Dose Admin Sodium Chloride 1,000 mls @ 100 mls/hr 04/29/21 12:00 04/29/21 12:02 Sodium Chloride 0.9% 1000 Ml IV 05/29/21 11:59 100 mls/hr .Q10H ROSALINDA Administration Discontinued Medications Generic Name Dose Route Start Last Admin Trade Name Dimple PRN Reason Stop Dose Admin Acetaminophen 650 mg 04/29/21 13:21 04/29/21 13:31 Acetaminophen 325 Mg Tablet PO 04/29/21 13:22 650 mg STAT ONE Administration Acetaminophen Confirm 04/29/21 13:26 Acetaminophen 325 Mg Tablet Administered 04/29/21 13:27 Dose 650 mg .ROUTE .STK-MED ONE Ceftriaxone Sodium 1,000 mg 04/29/21 13:22 04/29/21 13:33 Ceftriaxone Sodium 1000 Mg Inj Vial IM 04/29/21 13:23 1,000 mg STAT ONE Administration Ceftriaxone Sodium Confirm 04/29/21 13:26 Ceftriaxone Sodium 1000 Mg Inj Vial Administered 04/29/21 13:27 Dose 1,000 mg .ROUTE .STK-MED ONE Ceftriaxone Sodium/Dextrose 1 g in 50 mls @ 100 mls/hr 04/29/21 12:53 04/29/21 13:36 Rocephin 1 Gm-D5w 50 Ml Bag IV 04/29/21 13:22 Not Given STAT STA Ceftriaxone Sodium/Dextrose Confirm 04/29/21 13:24 Rocephin 1 Gm-D5w 50 Ml Bag Administered 04/29/21 13:25 Dose 1 g in 50 mls @ ud IV .STK-MED ONE Lidocaine HCl Confirm 04/29/21 13:26 Lidocaine Hcl 1% 20 Ml Mdv 20 Ml Ml Administered 04/29/21 13:27 Dose 3 ml .ROUTE .STK-MED ONE Lab/Rad Data: Laboratory Result Diagrams 04/29/21 11:45 04/29/21 11:45 Laboratory Results 04/29/21 04/29/21 04/29/21 Range/Units 12:40 12:15 12:15 WBC (4.0-10.5) K/mm3 RBC (4.1-5.4) M/mm3 Hgb (12.0-16.0) gm/dl Hct (35-47) % MCV (78-100) fl MCH (26-32) pg MCHC (32-36) g/dl RDW (11.5-14.0) % Plt Count (150-450) K/mm3 MPV (7.5-11.0) fl Gran % (36.0-66.0) % Eos # (Auto) (0-0.5) Absolute Lymphs (auto) (1.0-4.6) Absolute Monos (auto) (0.0-1.3) Lymphocytes % (24.0-44.0) % Monocytes % (0.0-12.0) % Eosinophils % (0.00-5.0) % Basophils % (0.0-0.4) % Absolute Granulocytes (1.4-6.9) Basophils # (0-0.4) PT (9.4-12.5) SECONDS INR (0.8-3.0) D-Dimer (215-500) ng/mL Sodium (137-145) mmol/L Potassium (3.5-5.1) mmol/L Chloride (98-107) mmol/L Carbon Dioxide (22-30) mmol/L Anion Gap (5-15) MEQ/L BUN (7-17) mg/dL Creatinine (0.52-1.04) mg/dL Estimated GFR ML/MIN Glucose (74-106) mg/dL Calcium (8.4-10.2) mg/dL Magnesium (1.6-2.3) mg/dL Total Bilirubin (0.2-1.3) mg/dL AST (14-36) U/L ALT (0-35) U/L Alkaline Phosphatase (38-126) U/L Ammonia 25 (9-30) umol/L Troponin I (0.000-0.034) ng/mL NT-Pro-B Natriuret Pep (0-450) pg/mL Serum Total Protein (6.3-8.2) g/dL Albumin (3.5-5.0) g/dL Thyroxine (T4) (5.53-10.96) ug/dL TSH 3rd Generation (0.47-4.68) mIU/L Urine Color (YELLOW) Urine Appearance (CLEAR) Urine pH (5-6) Ur Specific [place] (1.005-1.025) Urine Protein (Negative) Urine Ketones (NEGATIVE) Urine Blood (0-5) [place]/ul Urine Nitrite (NEGATIVE) Urine Bilirubin (NEGATIVE) Urine Urobilinogen (0-1) mg/dL Ur Leukocyte Esterase (NEGATIVE) Urine WBC (Auto) (0-5) /HPF Urine RBC (Auto) (0-2) /HPF U Epithel Cells (Auto) (FEW) /HPF Urine Bacteria (Auto) (NEGATIVE) /HPF Urine Mucus (Auto) (NEGATIVE) /HPF Urine Culture Reflexed (NO) Urine Glucose (NEGATIVE) mg/dL Urine HCG, Qual (Negative) Urine Opiates Level (NEGATIVE) Ur Methadone (NEGATIVE) Urine Barbiturates (NEGATIVE) Ur Phencyclidine (PCP) (NEGATIVE) Urine Amphetamine (NEGATIVE) U Benzodiazepine Level (NEGATIVE) Urine Cocaine (NEGATIVE) Urine Marijuana (THC) (NEGATIVE) Monoscreen NEGATIVE (Negative) Influenza Type A Ag NEGATIVE (NEGATIVE) Influenza Type B Ag NEGATIVE (NEGATIVE) 04/29/21 04/29/21 04/29/21 Range/Units 12:15 11:57 11:57 WBC (4.0-10.5) K/mm3 RBC (4.1-5.4) M/mm3 Hgb (12.0-16.0) gm/dl Hct (35-47) % MCV (78-100) fl MCH (26-32) pg MCHC (32-36) g/dl RDW (11.5-14.0) % Plt Count (150-450) K/mm3 MPV (7.5-11.0) fl Gran % (36.0-66.0) % Eos # (Auto) (0-0.5) Absolute Lymphs (auto) (1.0-4.6) Absolute Monos (auto) (0.0-1.3) Lymphocytes % (24.0-44.0) % Monocytes % (0.0-12.0) % Eosinophils % (0.00-5.0) % Basophils % (0.0-0.4) % Absolute Granulocytes (1.4-6.9) Basophils # (0-0.4) PT (9.4-12.5) SECONDS INR (0.8-3.0) D-Dimer (215-500) ng/mL Sodium (137-145) mmol/L Potassium (3.5-5.1) mmol/L Chloride (98-107) mmol/L Carbon Dioxide (22-30) mmol/L Anion Gap (5-15) MEQ/L BUN (7-17) mg/dL Creatinine (0.52-1.04) mg/dL Estimated GFR ML/MIN Glucose (74-106) mg/dL Calcium (8.4-10.2) mg/dL Magnesium (1.6-2.3) mg/dL Total Bilirubin (0.2-1.3) mg/dL AST (14-36) U/L ALT (0-35) U/L Alkaline Phosphatase (38-126) U/L Ammonia (9-30) umol/L Troponin I (0.000-0.034) ng/mL NT-Pro-B Natriuret Pep (0-450) pg/mL Serum Total Protein (6.3-8.2) g/dL Albumin (3.5-5.0) g/dL Thyroxine (T4) (5.53-10.96) ug/dL TSH 3rd Generation (0.47-4.68) mIU/L Urine Color YELLOW (YELLOW) Urine Appearance CLOUDY (CLEAR) Urine pH 5.0 (5-6) Ur Specific [place] 1.019 (1.005-1.025) Urine Protein NEGATIVE (Negative) Urine Ketones NEGATIVE (NEGATIVE) Urine Blood NEGATIVE (0-5) [place]/ul Urine Nitrite NEGATIVE (NEGATIVE) Urine Bilirubin NEGATIVE (NEGATIVE) Urine Urobilinogen NEGATIVE (0-1) mg/dL Ur Leukocyte Esterase LARGE (NEGATIVE) Urine WBC (Auto) 26-50 (0-5) /HPF Urine RBC (Auto) 11-15 (0-2) /HPF U Epithel Cells (Auto) MANY (FEW) /HPF Urine Bacteria (Auto) MODERATE (NEGATIVE) /HPF Urine Mucus (Auto) SLIGHT (NEGATIVE) /HPF Urine Culture Reflexed YES (NO) Urine Glucose NEGATIVE (NEGATIVE) mg/dL Urine HCG, Qual NEGATIVE (Negative) Urine Opiates Level NEGATIVE (NEGATIVE) Ur Methadone NEGATIVE (NEGATIVE) Urine Barbiturates NEGATIVE (NEGATIVE) Ur Phencyclidine (PCP) NEGATIVE (NEGATIVE) Urine Amphetamine NEGATIVE (NEGATIVE) U Benzodiazepine Level NEGATIVE (NEGATIVE) Urine Cocaine NEGATIVE (NEGATIVE) Urine Marijuana (THC) NEGATIVE (NEGATIVE) Monoscreen (Negative) Influenza Type A Ag (NEGATIVE) Influenza Type B Ag (NEGATIVE) 04/29/21 04/29/2121 Range/Units 11:45 11:45 11:45 WBC (4.0-10.5) K/mm3 RBC (4.1-5.4) M/mm3 Hgb (12.0-16.0) gm/dl Hct (35-47) % MCV (78-100) fl MCH (26-32) pg MCHC (32-36) g/dl RDW (11.5-14.0) % Plt Count (150-450) K/mm3 MPV (7.5-11.0) fl Gran % (36.0-66.0) % Eos # (Auto) (0-0.5) Absolute Lymphs (auto) (1.0-4.6) Absolute Monos (auto) (0.0-1.3) Lymphocytes % (24.0-44.0) % Monocytes % (0.0-12.0) % Eosinophils % (0.00-5.0) % Basophils % (0.0-0.4) % Absolute Granulocytes (1.4-6.9) Basophils # (0-0.4) PT 13.3 H (9.4-12.5) SECONDS INR 1.13 (0.8-3.0) D-Dimer 309 (215-500) ng/mL Sodium 140 (137-145) mmol/L Potassium 3.7 (3.5-5.1) mmol/L Chloride 107 (98-107) mmol/L Carbon Dioxide 23 (22-30) mmol/L Anion Gap 14.3 (5-15) MEQ/L BUN 10 (7-17) mg/dL Creatinine 1.05 H (0.52-1.04) mg/dL Estimated GFR > 60.0 ML/MIN Glucose 113 H (74-106) mg/dL Calcium 9.5 (8.4-10.2) mg/dL Magnesium 1.7 (1.6-2.3) mg/dL Total Bilirubin 0.40 (0.2-1.3) mg/dL AST 29 (14-36) U/L ALT 21 (0-35) U/L Alkaline Phosphatase 128 H (38-126) U/L Ammonia (9-30) umol/L Troponin I < 0.012 (0.000-0.034) ng/mL NT-Pro-B Natriuret Pep 42.5 (0-450) pg/mL Serum Total Protein 6.8 (6.3-8.2) g/dL Albumin 4.2 (3.5-5.0) g/dL Thyroxine (T4) 8.38 (5.53-10.96) ug/dL TSH 3rd Generation 3.570 (0.47-4.68) mIU/L Urine Color (YELLOW) Urine Appearance (CLEAR) Urine pH (5-6) Ur Specific [place] (1.005-1.025) Urine Protein (Negative) Urine Ketones (NEGATIVE) Urine Blood (0-5) [place]/ul Urine Nitrite (NEGATIVE) Urine Bilirubin (NEGATIVE) Urine Urobilinogen (0-1) mg/dL Ur Leukocyte Esterase (NEGATIVE) Urine WBC (Auto) (0-5) /HPF Urine RBC (Auto) (0-2) /HPF U Epithel Cells (Auto) (FEW) /HPF Urine Bacteria (Auto) (NEGATIVE) /HPF Urine Mucus (Auto) (NEGATIVE) /HPF Urine Culture Reflexed (NO) Urine Glucose (NEGATIVE) mg/dL Urine HCG, Qual (Negative) Urine Opiates Level (NEGATIVE) Ur Methadone (NEGATIVE) Urine Barbiturates (NEGATIVE) Ur Phencyclidine (PCP) (NEGATIVE) Urine Amphetamine (NEGATIVE) U Benzodiazepine Level (NEGATIVE) Urine Cocaine (NEGATIVE) Urine Marijuana (THC) (NEGATIVE) Monoscreen (Negative) Influenza Type A Ag (NEGATIVE) Influenza Type B Ag (NEGATIVE) 04/29/21 Range/Units 11:45 WBC 9.4 (4.0-10.5) K/mm3 RBC 4.39 (4.1-5.4) M/mm3 Hgb 13.4 (12.0-16.0) gm/dl Hct 40.6 (35-47) % MCV 92.5 (78-100) fl MCH 30.5 (26-32) pg MCHC 33.0 (32-36) g/dl RDW 13.9 (11.5-14.0) % Plt Count 255 (150-450) K/mm3 MPV 9.2 (7.5-11.0) fl Gran % 54.2 (36.0-66.0) % Eos # (Auto) 0.33 (0-0.5) Absolute Lymphs (auto) 3.16 (1.0-4.6) Absolute Monos (auto) 0.79 (0.0-1.3) Lymphocytes % 33.5 (24.0-44.0) % Monocytes % 8.4 (0.0-12.0) % Eosinophils % 3.5 (0.00-5.0) % Basophils % 0.4 (0.0-0.4) % Absolute Granulocytes 5.12 (1.4-6.9) Basophils # 0.04 (0-0.4) PT (9.4-12.5) SECONDS INR (0.8-3.0) D-Dimer (215-500) ng/mL Sodium (137-145) mmol/L Potassium (3.5-5.1) mmol/L Chloride (98-107) mmol/L Carbon Dioxide (22-30) mmol/L Anion Gap (5-15) MEQ/L BUN (7-17) mg/dL Creatinine (0.52-1.04) mg/dL Estimated GFR ML/MIN Glucose (74-106) mg/dL Calcium (8.4-10.2) mg/dL Magnesium (1.6-2.3) mg/dL Total Bilirubin (0.2-1.3) mg/dL AST (14-36) U/L ALT (0-35) U/L Alkaline Phosphatase (38-126) U/L Ammonia (9-30) umol/L Troponin I (0.000-0.034) ng/mL NT-Pro-B Natriuret Pep (0-450) pg/mL Serum Total Protein (6.3-8.2) g/dL Albumin (3.5-5.0) g/dL Thyroxine (T4) (5.53-10.96) ug/dL TSH 3rd Generation (0.47-4.68) mIU/L Urine Color (YELLOW) Urine Appearance (CLEAR) Urine pH (5-6) Ur Specific [place] (1.005-1.025) Urine Protein (Negative) Urine Ketones (NEGATIVE) Urine Blood (0-5) [place]/ul Urine Nitrite (NEGATIVE) Urine Bilirubin (NEGATIVE) Urine Urobilinogen (0-1) mg/dL Ur Leukocyte Esterase (NEGATIVE) Urine WBC (Auto) (0-5) /HPF Urine RBC (Auto) (0-2) /HPF U Epithel Cells (Auto) (FEW) /HPF Urine Bacteria (Auto) (NEGATIVE) /HPF Urine Mucus (Auto) (NEGATIVE) /HPF Urine Culture Reflexed (NO) Urine Glucose (NEGATIVE) mg/dL Urine HCG, Qual (Negative) Urine Opiates Level (NEGATIVE) Ur Methadone (NEGATIVE) Urine Barbiturates (NEGATIVE) Ur Phencyclidine (PCP) (NEGATIVE) Urine Amphetamine (NEGATIVE) U Benzodiazepine Level (NEGATIVE) Urine Cocaine (NEGATIVE) Urine Marijuana (THC) (NEGATIVE) Monoscreen (Negative) Influenza Type A Ag (NEGATIVE) Influenza Type B Ag (NEGATIVE) - Progress Progress: improved, re-examined Progress Note: 04/29/21 13:43 CAT scan of the head without contrast shows mild atrophy but no acute process present. Patient is now more awake and alert. Counseled pt/family regarding: lab results, diagnosis, need for follow-up, rad results - Departure Departure Disposition: Home Clinical Impression: Urinary tract infection, Confusion Condition: Stable Critical Care Time: No Referrals: PENNY SILVA [Primary Care Provider] - Follow up/PCP as directed Additional Instructions: Drink plenty of fluids. Take your medication as prescribed. Follow-up with your primary care physician for further management. Use Tylenol and ibuprofen, if there are no contraindications, for headache and pain control. Prescriptions: Smz/Tmp Ds Tablet [Bactrim Ds Tablet] 1 udtab PO BID #14 tablet
[2021-04-29] MEDS ORDERED: Sodium Chloride 0.9% 1000 ML 1,000 ML IV SCH (12:00)
[2021-04-29] MEDS ORDERED: Sodium Chloride 0.9% 1000 ML 1,000 ML ONE (12:01)
[2021-04-29 12:08] LABS: Absolute Neutrophil Ct (ANC) 5.12 (1.4-6.9); BASOPHIL % 0.4 % (0.0-0.4); Basophil (Absolute #) 0.04 (0-0.4); Eosinophil % 3.5 % (0.00-5.0); Eosinophil (Absolute #) 0.33 (0-0.5); Hematocrit 40.6 % (35-47); Hemoglobin 13.4 gm/dl (12.0-16.0); Lymphocyte (Absolute #) 3.16 (1.0-4.6); Lymphocytes % 33.5 % (24.0-44.0); Mean Cell Volume 92.5 fl (78-100); Mean Corpuscular Hemoglobin 30.5 pg (26-32); Mean Platelet Volume 9.2 fl (7.5-11.0); Monocyte (Absolute #) 0.79 (0.0-1.3); Monocytes % 8.4 % (0.0-12.0); Neutrophil % 54.2 % (36.0-66.0); Platelet Count 255 K/mm3 (150-450); Red Blood Count 4.39 M/mm3 (4.1-5.4); Red Cell Distribution Width 13.9 % (11.5-14.0); White Blood Count 9.4 K/mm3 (4.0-10.5)
[2021-04-29 12:09] LABS: INR 1.13 (0.8-3.0); PROTIME 13.3 SECONDS (9.4-12.5)
[2021-04-29 12:14] LABS: Appearance CLOUDY (CLEAR); Bacteria MODERATE /HPF (NEGATIVE); Bilirubin NEGATIVE (NEGATIVE); Blood NEGATIVE Ery/ul (0-5); Epithelial Cells MANY /HPF (FEW); Glucose NEGATIVE (NEGATIVE); Ketones NEGATIVE (NEGATIVE); Leukocyte Esterase LARGE (NEGATIVE); Mucus SLIGHT /HPF (NEGATIVE); Nitrite NEGATIVE (NEGATIVE); Protein,Urine Dip NEGATIVE (Negative); Specific Gravity 1.019 (1.005-1.025); Urobilinogen NEGATIVE mg/dL (0-1); WBC 26-50 /HPF (0-5)
[2021-04-29 12:37] LABS: Amphetamine,Urine NEGATIVE (NEGATIVE); Barbiturate,Urine NEGATIVE (NEGATIVE); Benzodiazepine,Urine NEGATIVE (NEGATIVE); Cocaine,Urine NEGATIVE (NEGATIVE); Methadone,Urine NEGATIVE (NEGATIVE); Opiate,Urine NEGATIVE (NEGATIVE); PCP,Urine NEGATIVE (NEGATIVE); THC,Urine NEGATIVE (NEGATIVE)
[2021-04-29 12:42] LABS: ALBUMIN 4.2 g/dL (3.5-5.0); ALKALINE PHOSPHATASE 128 U/L (38-126); ANION GAP 14.3 MEQ/L (5-15); BLOOD UREA NITROGEN 10 mg/dL (7-17); CHLORIDE 107 mmol/L (98-107); Calcium 9.5 mg/dL (8.4-10.2); Carbon Dioxide 23 mmol/L (22-30); Creatinine 1 1.05 mg/dL (0.52-1.04); EST GLOMERULAR FILTRATION RATE > 60.0 ML/MIN; Glucose 113 mg/dL (74-106); MAGNESIUM 1.7 mg/dL (1.6-2.3); NT PRO BNP 42.5 pg/mL (0-450); Potassium 3.7 mmol/L (3.5-5.1); SGOT/AST 29 U/L (14-36); SGPT/ALT 21 U/L (0-35); SODIUM 140 mmol/L (137-145); T4 (Thyroxine) 8.38 ug/dL (5.53-10.96); Total Protein 6.8 g/dL (6.3-8.2)
[2021-04-29] MEDS ORDERED: ROCEPHIN 1 Gm-D5w 50 ml Bag** 1 G/50 ML IVPB IV STA (12:53)
[2021-04-29 13:08] LABS: INFLUENZA A NEGATIVE (NEGATIVE); INFLUENZA B NEGATIVE (NEGATIVE)
[2021-04-29] MEDS ORDERED: TYLENOL 325 MG PO ONE (13:21)
[2021-04-29] MEDS ORDERED: Rocephin 1000 MG INJ IM ONE (13:22)
[2021-04-29] MEDS ORDERED: ROCEPHIN 1 Gm-D5w 50 ml Bag** 0 G/0 ML IVPB IV ONE (13:24)
[2021-04-29] MEDS ORDERED: XYLOCAINE 1% HCL 20 ML MDV ONE (13:26)
[2021-04-29] MEDS ORDERED: TYLENOL 325 MG ONE (13:26)
[2021-04-29] MEDS ORDERED: Rocephin 1000 MG INJ ONE (13:26)
[2021-04-29 14:20] VITALS: BP 112/76
[2021-04-29 14:37] VITALS: PULSE 100; O2SAT 97
--- NOTE | 2021-04-29 18:54 | XRAY ---
Indication: Acute mental status change. Multiple contiguous axial images obtained through the head without contrast. Comparison: None Normal appearing brain parenchyma, ventricles, and bony calvarium. Visualized paranasal sinuses and mastoid air cells are clear. Impression: Normal CT head without contrast exam. Comment: Preliminary interpretation made by [facility]. No critical discrepancy.
== END 2021-04-29 14:38 | disposition home or self-care (01) ==
LOC: ED 11:09
DX: N39.0 Urinary tract infection, site not specified (principal); R41.0 Disorientation, unspecified; Z79.899 Other long term (current) drug therapy; Z72.0 Tobacco use; E03.9 Hypothyroidism, unspecified; K58.9 Irritable bowel syndrome, unspecified
CPT/HCPCS: 36000; 36415; 70450; 80053; 80307; 81001; 82140; 83735; 83880; 84436; 84443; 84484; 84703; 85025; 85379; 85610; 86308; 87040; 87086; 87400; 93005; 93041; 94760; 96372; 99284; J0696; A9270-GY

== ENCOUNTER 2021-05-05 16:03 | Emergency (ER) | payer OTHER ==
[2021-05-05] MEDS ORDERED: DECADRON 10MG INJ. IV ONE (17:18)
[2021-05-05] MEDS ORDERED: DECADRON 10MG INJ. ONE (17:22)
--- NOTE | 2021-05-05 17:28 | ERPHSYRPT ---
- History of Present Illness Time Seen by Provider: 05/05/21 16:10 Source: patient, EMS Exam Limitations: no limitations Patient Subjective Stated Complaint: pt reports difficulty walking, pt states that when she woke today around 1000 she had some numbness and tingling, pins and needles in her left leg. states after that she had some difficulty with both legs and had to have assistance walking. pt states she was seen recently in the ER for an unrelated issue. Triage Nursing Assessment: pt is aox3, pupils perrl, afebrile, resps easy and non labored, cap refill < 2 seconds, radial pulses strong and equal, pt skin pink warm dry. pt sensation to BLE is intact. Physician History: 25 years old female with history of anxiety, depression, GERD, hypothyroidism presented in the ER with chief complaint of lower extremity numbness and weakness. Patient reports she fell 3-4 days ago and started to have some numbness in the left foot and leg and also reports having continuous numbness in her private area for the last 2 to 3 days. Denies any loss of bowel or bladder control. She was able to ambulate until this morning when she woke up and was not able to have any weightbearing but with some help. She reports tingling numbness/pins and needle sensation in both lower extremities. Patient was not able to come to stretcher for EMS but with 2 people help. Denies any back pain. Denies any alcohol or drug use. No history of similar symptoms in the past. Reports overall weakness tiredness and lack of energy. Timing/Duration: constant, gradual onset, worse Severity: moderate, severe Character of Deficits: new weakness, altered sensation Deficits: cannot walk Baseline/Normal Cognition: alert oriented x 3 Current Cognition: alert oriented x 3 Baseline Gait: walks w/o assistance Associated Symptoms: weakness, numbness/tingling in legs/feet Allergies/Adverse Reactions: adhesive tape Allergy (Intermediate, Verified 05/05/21 16:24) Blisters [place] Allergy (Verified 05/05/21 16:24) paroxetine HCl [From Paxil] Adverse Reaction (Verified 05/05/21 16:24) Nausea Home Medications: Bupropion HCl [Wellbutrin Xl] 1 tab PO DAILY 01/29/19 [History] hydrOXYzine pamoate [Vistaril] 50 mg PO BID PRN PRN 01/29/19 [History] Trazodone HCl 150 mg [Desyrel 150 MG] 150 mg PO HS 03/23/19 [History] risperiDONE [Risperidone] 3 mg PO HS 03/23/19 [History] Gabapentin Enacarbil [Horizant] 1 ea BID 03/19/21 [History] Levothyroxine Sodium 75 Mcg [Synthroid 75 Mcg] 1 ea DAILY 03/19/21 [History] Pramipexole Di-HCl 0.5 mg [Mirapex 0.5 MG Tablet] 1 ea PO DAILY 03/19/21 [History] Tizanidine HCl 1 ea TID 03/19/21 [History] Hx Tetanus, Diphtheria Vaccination/Date Given: Yes Hx Influenza Vaccination/Date Given: No Hx Pneumococcal Vaccination/Date Given: No Immunizations Up to Date: Yes Travel Risk - International Travel Have you traveled outside of the country in past 3 weeks: No - Coronavirus Screening Are you exhibiting any of the following symptoms?: No Close contact with a COVID-19 positive Pt in past 14-21 Days: No - Vaccine Status Have you recieved a Covid-19 vaccination: Yes 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: [employer] - Vaccination Dates Date of 2cond Vaccination (if applicable): unk - Review of Systems Constitutional: Weakness Eyes: No Symptoms Ears, Nose, & Throat: No Symptoms Respiratory: No Symptoms Cardiac: No Symptoms Abdominal/Gastrointestinal: No Symptoms Genitourinary Symptoms: No Symptoms Musculoskeletal: Fall Skin: No Symptoms Neurological: Paralysis, Sensory Changes Psychological: Anxiety, Depression Endocrine: No Symptoms Hematologic/Lymphatic: No Symptoms Immunological/Allergic: No Symptoms - Past Medical History Pertinent Past Medical History: Yes Neurological History: Migraines ENT History: No Pertinent History Cardiac History: No Pertinent History Respiratory History: Asthma Endocrine Medical History: No Pertinent History Musculoskeletal History: No Pertinent History GI Medical History: Irritable Bowel, Crohns Disease, GERD, Gallbladder Disease History: No Pertinent History Psycho-Social History: Depression, Anxiety Female Reproductive Disorders: Other Other Medical History: Reports Crohns; cysts on ovaries - Past Surgical History Past Surgical History: Yes Neuro Surgical History: No Pertinent History Cardiac: No Pertinent History Respiratory: No Pertinent History Gastrointestinal: Cholecystectomy Genitourinary: Other Musculoskeletal: Orthopedic Surgery Female Surgical History: Section Other Surgical History: right rotator cuff repair. Ear tubes bilat,ovarian cyst 2017. ovarian cyst removal jun 2016. colonscopy jun 2016 - Social History Smoking Status: Current every day smoker How long have you smoked: 1 year Exposure to second hand smoke: Yes Alcohol Use: None Drug Use: none Patient Lives Alone: No Significant Family History: no pertinent family hx - Female History Hx Last Menstrual Period: depot Hx Now: No - Nursing Vital Signs Nursing Vital Signs: Initial Vital Signs Temperature 98 F 05/05/21 16:05 Pulse Rate 118 H 05/05/21 16:05 Respiratory Rate 18 05/05/21 16:05 Blood Pressure 118/77 05/05/21 16:05 O2 Sat by Pulse Oximetry 98 05/05/21 16:05 Pain Scale Pain Intensity 0 - Foreign Coma Scale Best Eye Response (Foreign): (4) open spontaneously Best Verbal Response (Foreign): (5) oriented Best Motor Response (Foreign): (6) obeys commands Foreign Total: 15 - Physical Exam General Appearance: no apparent distress, alert Eye Exam: bilateral eye: normal inspection, PERRL, EOMI Ears, Nose, Throat Exam: normal ENT inspection, TMs normal, pharynx normal, moist mucous membranes Neck Exam: normal inspection, non-tender, supple, full range of motion, No meningismus Respiratory: normal breath sounds, lungs clear Cardiovascular: normal heart sounds, tachycardia Gastrointestinal: soft, normal bowel sounds, No tenderness Back Exam: normal inspection, normal range of motion, No CVA tenderness, No vertebral tenderness, No muscle spasm Extremity Exam: normal inspection, pelvis stable Mental Status: alert, oriented x 3, 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 Decreased anal tone. Loss of fine touch around perianal area), weak motor strength RLE, weak motor strength LLE DTR: bicep (R): 2+, bicep (L): 2+, knee (R): 2+, knee (L): 2+, ankle (R): 1+, ankle (L): 1+ Skin Exam: normal color SpO2 Interpretation: normal SpO2: 98 O2 Delivery: Room Air Ordered Tests: Medication Summary Discontinued Medications Generic Name Dose Route Start Last Admin Trade Name Freq PRN Reason Stop Dose Admin Dexamethasone Sodium Phosphate 10 mg 05/05/21 17:18 Dexamethasone Sod Phosphate 10 Mg/Ml IV 05/05/21 17:19 STAT ONE - Progress Progress: unchanged Progress Note: 05/05/21 17:29 She is given Decadron. I believe patient needs immediate evaluation for cauda equina and may need decompression emergently. No MRI services are available. Discussed with Dr. Carrington at neurosurgery ICU, patient is accepted for transfer to [facility]. Plan discussed with patient who understand and agrees with it. Counseled pt/family regarding: diagnosis - Departure Departure Disposition: Transfer Clinical Impression: Cauda equina syndrome Condition: Stable Critical Care Time: No Referrals: PENNY SILVA [Primary Care Provider] - Follow up/PCP as directed
[2021-05-05] MEDS ORDERED: Sodium Chloride 0.9% 1000 ML 1,000 ML ONE (17:38)
[2021-05-05] MEDS ORDERED: Sodium Chloride 0.9% 1000 ML 1,000 ML IV SCH (17:45)
[2021-05-05 18:06] VITALS: BP 127/73; PULSE 102; O2SAT 99
== END 2021-05-05 18:05 | disposition short-term general hospital (02) ==
LOC: ED 16:03
DX: G83.4 Cauda equina syndrome (principal); M62.81 Muscle weakness (generalized); R20.0 Anesthesia of skin; K50.90 Crohn's disease, unspecified, without complications; Z72.0 Tobacco use; Z79.899 Other long term (current) drug therapy
CPT/HCPCS: 96374; 99284; J1100

== ENCOUNTER 2021-05-28 22:18 | Inpatient (IN) | payer OTHER ==
[2021-05-28] MEDS ORDERED: DUONEB 0.5-3 MG/3 ml Neb IH ONE ×2 (23:04→23:11)
[2021-05-28] MEDS ORDERED: solu-MEDROL 125 MG, Sterile H2O 10 ml 2 ML IV ONE ×2 (23:04)
--- NOTE | 2021-05-28 23:29 | ERPHSYRPT ---
- History of Present Illness Time Seen by Provider: 05/28/21 22:30 Source: patient Exam Limitations: no limitations Patient Subjective Stated Complaint: pt states "I can't breathe." Triage Nursing Assessment: pt ambulated into the er; pt is axo x4; pale, warm skin; c/o SOB; pt states 10/10 pain to back and shoulder; pt states hx of asthma; pt states that she took a puff of her inhaler prior to coming in; wheezing in all lobes; pt has dry hacking cough; pt states fever the day prior; afebrile; tachycardic Physician History: Patient is a 25-year-old female presents to our ED with complaints of fever cough shortness of breath vomiting diarrhea headache body aches fatigue. Patient states the cough is dry nonproductive. Patient has history of asthma. Patient try treating herself with her inhaler but her symptoms not improve. Patient states she has been coughing so much that her right posterior shoulder hurts. Patient denies abdominal pain. No trauma. Patient is otherwise healthy. Symptoms are constant. Symptoms are moderate in intensity. Patient voices no other complaints concerns at this time. Timing/Duration: today Activities at Onset: none Severity of Dyspnea-Max: moderate Severity of Dyspnea-Current: mild Possible Cause: allergen exposure Modifying Factors: Improves With: activity Associated Symptoms: constant, cough, fever, No muscle spasms hands, No tingling face, No tingling hands Allergies/Adverse Reactions: adhesive tape Allergy (Intermediate, Verified 05/28/21 22:20) Blisters [place] Allergy (Verified 05/28/21 22:20) paroxetine HCl [From Paxil] Adverse Reaction (Verified 05/28/21 22:20) Nausea Home Medications: Bupropion HCl [Wellbutrin Xl] 1 tab PO DAILY 01/29/19 [History] hydrOXYzine pamoate [Vistaril] 50 mg PO BID PRN PRN 01/29/19 [History] Trazodone HCl 150 mg [Desyrel 150 MG] 150 mg PO HS 03/23/19 [History] risperiDONE [Risperidone] 3 mg PO HS 03/23/19 [History] Gabapentin Enacarbil [Horizant] 1 ea BID 03/19/21 [History] Levothyroxine Sodium 75 Mcg [Synthroid 75 Mcg] 1 ea DAILY 03/19/21 [History] Pramipexole Di-HCl 0.5 mg [Mirapex 0.5 MG Tablet] 1 ea PO DAILY 03/19/21 [History] Tizanidine HCl 1 ea TID 03/19/21 [History] Hx Tetanus, Diphtheria Vaccination/Date Given: Yes Hx Influenza Vaccination/Date Given: Yes Hx Pneumococcal Vaccination/Date Given: No Travel Risk - International Travel Have you traveled outside of the country in past 3 weeks: No - Coronavirus Screening Are you exhibiting any of the following symptoms?: Yes Symptoms: Fever, Cough: New Onset, Shortness of Breath, Vomiting/Diarrhea, H eadaches/Body Aches/Fatigue Close contact with a COVID-19 positive Pt in past 14-21 Days: No - Vaccine Status Have you recieved a Covid-19 vaccination: Yes 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: [employer] - Vaccination Dates Date of 2cond Vaccination (if applicable): 12/23 - Review of Systems Constitutional: No Symptoms, No Fever, No Chills Eyes: No Symptoms Ears, Nose, & Throat: No Symptoms Respiratory: No Symptoms, No Cough, No Dyspnea Cardiac: No Symptoms, No Chest Pain, No Edema, No Syncope Abdominal/Gastrointestinal: No Symptoms, No Abdominal Pain, No Nausea, No Vomiting, No Diarrhea Genitourinary Symptoms: No Symptoms, No Dysuria Musculoskeletal: No Symptoms, No Back Pain, No Neck Pain Skin: No Symptoms, No Rash Neurological: No Symptoms, No Dizziness, No Focal Weakness, No Sensory Changes Psychological: No Symptoms Endocrine: No Symptoms Hematologic/Lymphatic: No Symptoms Immunological/Allergic: No Symptoms All Other Systems: Reviewed and Negative - Past Medical History Pertinent Past Medical History: Yes Neurological History: Migraines ENT History: No Pertinent History Cardiac History: No Pertinent History Respiratory History: Asthma Endocrine Medical History: No Pertinent History Musculoskeletal History: No Pertinent History GI Medical History: Irritable Bowel, Crohns Disease, GERD, Gallbladder Disease History: No Pertinent History Psycho-Social History: Depression, Anxiety Female Reproductive Disorders: Other Other Medical History: Reports Crohns; cysts on ovaries - Past Surgical History Past Surgical History: Yes Neuro Surgical History: No Pertinent History Cardiac: No Pertinent History Respiratory: No Pertinent History Gastrointestinal: Cholecystectomy Genitourinary: Other Musculoskeletal: Orthopedic Surgery Female Surgical History: Section Other Surgical History: right rotator cuff repair. Ear tubes bilat,ovarian cyst 2017. ovarian cyst removal jun 2016. colonscopy jun 2016 - Social History Smoking Status: Current every day smoker How long have you smoked: 1 year Exposure to second hand smoke: Yes Alcohol Use: None Drug Use: none Patient Lives Alone: No Significant Family History: no pertinent family hx - Female History Hx Now: No - Nursing Vital Signs Nursing Vital Signs: Initial Vital Signs Temperature 99.4 F 05/28/21 22:22 Pulse Rate 106 H 05/28/21 22:22 Respiratory Rate 24 05/28/21 22:22 Blood Pressure 122/74 05/28/21 22:22 O2 Sat by Pulse Oximetry 90 L 05/28/21 22:22 Pain Scale Pain Intensity 0 - Physical Exam General Appearance: no apparent distress, alert Eye Exam: PERRL/EOMI, eyes nml inspection, No scleral icterus Ears, Nose, Throat Exam: hearing grossly normal, normal ENT inspection, normal pharynx Neck Exam: normal inspection, supple, full range of motion, No non-tender Respiratory Exam: normal breath sounds, lungs clear, airway intact, rhonchi, wheezing, No respiratory distress Cardiovascular/Chest Exam: normal heart sounds, regular rate/rhythm, normal peripheral pulses Abdominal/Gastrointestinal Exam: soft, normal bowel sounds, No tenderness, No distention, No mass Extremity Exam: non-tender, normal range of motion, normal inspection, no calf tenderness, no pedal edema Peripheral Pulses Exam: dorsalis-pedis (R): 2+, dorsalis-pedis (L): 2+ Neurologic Exam: alert, oriented x 3, 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 The largest consolidation is in the right upper lobe. There is a 5 mm right lower lobe nodule. 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 Care 05/28/21 23:05 Active EKG-ER Only STAT Care 05/28/21 23:04 Active IV Insertion STAT Care 05/28/21 23:04 Active Pulse Oximetry (ED) STAT Care 05/28/21 23:04 Active CHEST WITH CONTRAST [CT] Stat Exams 05/29/21 00:33 Taken ABG [ARTERIAL BLOOD GASES] Stat Lab 05/29/21 01:15 Completed BLOOD CULTURE Stat Lab 05/28/21 23:25 Received CBC W DIFF Stat Lab 05/28/21 23:25 Results CMP Stat Lab 05/28/21 23:25 Completed CULTURE,URINE Stat Lab 05/28/21 23:21 Received D-DIMER QUANTITATIVE Stat Lab 05/28/21 23:25 Completed HCG,QUALITATIVE URINE Stat Lab 05/28/21 23:43 Completed Manual Differential NC Stat Lab 05/28/21 23:25 Results Pathologist Review Stat Lab 05/28/21 23:25 Results UA W/RFX UR CULTURE Stat Lab 05/28/21 23:21 Completed Respiratory Therapy Assessment DAILY RT 05/28/21 23:22 Active Transfer Order Routine Transfer 05/29/21 Ordered Medication Summary Discontinued Medications Generic Name Dose Route Start Last Admin Trade Name Dimple PRN Reason Stop Dose Admin Acetaminophen 975 mg 05/28/21 23:31 05/28/21 23:37 Acetaminophen 325 Mg Tablet PO 05/28/21 23:32 975 mg STAT ONE Administration Acetaminophen Confirm 05/28/21 23:35 Acetaminophen 325 Mg Tablet Administered 05/28/21 23:36 Dose 975 mg .ROUTE .STK-MED ONE Albuterol/Ipratropium 3 ml 05/28/21 23:04 05/28/21 23:22 Ipratropium/Albuterol Sulfate 3 Ml Ampul.Neb IH 05/28/21 23:05 3 ml STAT ONE Administration Albuterol/Ipratropium Confirm 05/28/21 23:11 Ipratropium/Albuterol Sulfate 3 Ml Ampul.Neb Administered 05/28/21 23:12 Dose 3 ml IH .STK-MED ONE Methylprednisolone Sodium 0 mg 05/28/21 23:04 05/28/21 23:36 Succinate 125 mg/ Sterile IV 05/28/21 23:05 125 mg Water 2 ml STAT ONE Administration Ceftriaxone Sodium/Dextrose 2 g in 50 mls @ 100 mls/hr 05/29/21 03:13 05/29/21 03:58 Rocephin 2 Gm-D5w 50ml Bag IV 05/29/21 03:42 Infused STAT STA Infusion Azithromycin 500 mg in 250 mls @ 250 mls/hr 05/29/21 03:13 05/29/21 04:48 Zithromax 500 Mg/ 250 Ml Nacl Premix IV 05/29/21 04:12 Infused STAT STA Infusion Azithromycin Confirm 05/29/21 03:16 Zithromax 500 Mg/ 250 Ml Nacl Premix Administered 05/29/21 03:17 Dose 500 mg in 250 mls @ ud IV .STK-MED ONE Ceftriaxone Sodium/Dextrose Confirm 05/29/21 03:16 Rocephin 2 Gm-D5w 50ml Bag Administered 05/29/21 03:17 Dose 2 g in 50 mls @ ud IV .STK-MED ONE Methylprednisolone Sodium Succinate Confirm 05/28/21 23:36 Methylprednis Sod Succ 125 Mg/2 Ml Vial Administered 05/28/21 23:37 Dose 125 mg .ROUTE .STK-MED ONE Sterile Water Confirm 05/28/21 23:36 Water For Injection,Sterile 10 Ml Vial Administered 05/28/21 23:37 Dose 10 ml IJ .STK-MED ONE Lab/Rad Data: Laboratory Result Diagrams 05/28/21 23:25 05/28/21 23:25 Laboratory Results 05/29/21 05/29/21 05/29/21 Range/Units 03:37 01:15 01:12 WBC (4.0-10.5) K/mm3 RBC (4.1-5.4) M/mm3 Hgb (12.0-16.0) gm/dl Hct (35-47) % MCV (78-100) fl MCH (26-32) pg MCHC (32-36) g/dl RDW (11.5-14.0) % Plt Count (150-450) K/mm3 MPV (7.5-11.0) fl Gran % (36.0-66.0) % Eos # (Auto) (0-0.5) Absolute Lymphs (auto) (1.0-4.6) Absolute Monos (auto) (0.0-1.3) Lymphocytes % (24.0-44.0) % Monocytes % (0.0-12.0) % Eosinophils % (0.00-5.0) % Basophils % (0.0-0.4) % Absolute Granulocytes (1.4-6.9) Basophils # (0-0.4) Smear Path Review D-Dimer (215-500) ng/mL Puncture Site RIGHT RADIAL pCO2 29 L (35-45) mmHg pO2 73 L (75-100) mmHg Base Excess 1.0 (-2.0-2.0) O2 Saturation 94.8 (94-100) g/dF ABG pH 7.51 H (7.35-7.45) ABG HCO3 23.1 (22-28) ABG O2 Sat (Measured) 96.5 (95-100) % Syd Test YES A-a Gradient 90 a/A Ratio 0.45 Hemoglobin 12.2 Carboxyhemoglobin 1.0 (0.0-6.9) % THgb Methemoglobin 0.8 L (1.4-1.5) % Temperature 37.0 C POC O2 Flow Rate 28 % Sodium (137-145) mmol/L Potassium 3.7 (3.5-5.1) mmol/L Chloride (98-107) mmol/L Carbon Dioxide (22-30) mmol/L Anion Gap (5-15) MEQ/L BUN (7-17) mg/dL Creatinine (0.52-1.04) mg/dL Estimated GFR ML/MIN Glucose (74-106) mg/dL Lactic Acid 0.9 (0.4-2.0) Calcium (8.4-10.2) mg/dL Total Bilirubin (0.2-1.3) mg/dL AST (14-36) U/L ALT (0-35) U/L Alkaline Phosphatase (38-126) U/L Serum Total Protein (6.3-8.2) g/dL Albumin (3.5-5.0) g/dL Urine Color (YELLOW) Urine Appearance (CLEAR) Urine pH (5-6) Ur Specific [place] (1.005-1.025) Urine Protein (Negative) Urine Ketones (NEGATIVE) Urine Blood (0-5) [place]/ul Urine Nitrite (NEGATIVE) Urine Bilirubin (NEGATIVE) Urine Urobilinogen (0-1) mg/dL Ur Leukocyte Esterase (NEGATIVE) Urine WBC (Auto) (0-5) /HPF Urine RBC (Auto) (0-2) /HPF U Epithel Cells (Auto) (FEW) /HPF Urine Bacteria (Auto) (NEGATIVE) /HPF Urine Mucus (Auto) (NEGATIVE) /HPF Urine Culture Reflexed (NO) Urine Glucose (NEGATIVE) mg/dL Urine HCG, Qual (Negative) Influenza Type A Ag NEGATIVE (NEGATIVE) Influenza Type B Ag NEGATIVE (NEGATIVE) RSV (PCR) NEGATIVE (Negative) SARS-CoV-2 (PCR) NEGATIVE (NEGATIVE) 05/28/21 05/28/21 05/28/21 Range/Units 23:43 23:25 23:25 WBC (4.0-10.5) K/mm3 RBC (4.1-5.4) M/mm3 Hgb (12.0-16.0) gm/dl Hct (35-47) % MCV (78-100) fl MCH (26-32) pg MCHC (32-36) g/dl RDW (11.5-14.0) % Plt Count (150-450) K/mm3 MPV (7.5-11.0) fl Gran % (36.0-66.0) % Eos # (Auto) (0-0.5) Absolute Lymphs (auto) (1.0-4.6) Absolute Monos (auto) (0.0-1.3) Lymphocytes % (24.0-44.0) % Monocytes % (0.0-12.0) % Eosinophils % (0.00-5.0) % Basophils % (0.0-0.4) % Absolute Granulocytes (1.4-6.9) Basophils # (0-0.4) Smear Path Review D-Dimer 540 H* (215-500) ng/mL Puncture Site pCO2 (35-45) mmHg pO2 (75-100) mmHg Base Excess (-2.0-2.0) O2 Saturation (94-100) g/dF ABG pH (7.35-7.45) ABG HCO3 (22-28) ABG O2 Sat (Measured) (95-100) % Syd Test A-a Gradient a/A Ratio Hemoglobin Carboxyhemoglobin (0.0-6.9) % THgb Methemoglobin (1.4-1.5) % Temperature C POC O2 Flow Rate % Sodium 132 L (137-145) mmol/L Potassium 3.5 (3.5-5.1) mmol/L Chloride 98 (98-107) mmol/L Carbon Dioxide 23 (22-30) mmol/L Anion Gap 14.8 (5-15) MEQ/L BUN 10 (7-17) mg/dL Creatinine 0.85 (0.52-1.04) mg/dL Estimated GFR > 60.0 ML/MIN Glucose 127 H (74-106) mg/dL Lactic Acid (0.4-2.0) Calcium 9.1 (8.4-10.2) mg/dL Total Bilirubin 0.80 (0.2-1.3) mg/dL AST 16 (14-36) U/L ALT 15 (0-35) U/L Alkaline Phosphatase 124 (38-126) U/L Serum Total Protein 7.0 (6.3-8.2) g/dL Albumin 3.8 (3.5-5.0) g/dL Urine Color (YELLOW) Urine Appearance (CLEAR) Urine pH (5-6) Ur Specific [place] (1.005-1.025) Urine Protein (Negative) Urine Ketones (NEGATIVE) Urine Blood (0-5) [place]/ul Urine Nitrite (NEGATIVE) Urine Bilirubin (NEGATIVE) Urine Urobilinogen (0-1) mg/dL Ur Leukocyte Esterase (NEGATIVE) Urine WBC (Auto) (0-5) /HPF Urine RBC (Auto) (0-2) /HPF U Epithel Cells (Auto) (FEW) /HPF Urine Bacteria (Auto) (NEGATIVE) /HPF Urine Mucus (Auto) (NEGATIVE) /HPF Urine Culture Reflexed (NO) Urine Glucose (NEGATIVE) mg/dL Urine HCG, Qual NEGATIVE (Negative) Influenza Type A Ag (NEGATIVE) Influenza Type B Ag (NEGATIVE) RSV (PCR) (Negative) SARS-CoV-2 (PCR) (NEGATIVE) 05/28/21 05/28/21 Range/Units 23:25 23:21 WBC 35.8 H* (4.0-10.5) K/mm3 RBC 3.98 L (4.1-5.4) M/mm3 Hgb 12.1 (12.0-16.0) gm/dl Hct 35.7 (35-47) % MCV 89.7 (78-100) fl MCH 30.4 (26-32) pg MCHC 33.9 (32-36) g/dl RDW 13.8 (11.5-14.0) % Plt Count 208 (150-450) K/mm3 MPV 9.5 (7.5-11.0) fl Gran % 83.4 H (36.0-66.0) % Eos # (Auto) 0 (0-0.5) Absolute Lymphs (auto) 2.97 (1.0-4.6) Absolute Monos (auto) 2.97 H (0.0-1.3) Lymphocytes % 8.3 L (24.0-44.0) % Monocytes % 8.3 (0.0-12.0) % Eosinophils % 0.0 (0.00-5.0) % Basophils % 0.0 (0.0-0.4) % Absolute Granulocytes 29.86 H (1.4-6.9) Basophils # 0.01 (0-0.4) Smear Path Review Pending D-Dimer (215-500) ng/mL Puncture Site pCO2 (35-45) mmHg pO2 (75-100) mmHg Base Excess (-2.0-2.0) O2 Saturation (94-100) g/dF ABG pH (7.35-7.45) ABG HCO3 (22-28) ABG O2 Sat (Measured) (95-100) % Syd Test A-a Gradient a/A Ratio Hemoglobin Carboxyhemoglobin (0.0-6.9) % THgb Methemoglobin (1.4-1.5) % Temperature C POC O2 Flow Rate % Sodium (137-145) mmol/L Potassium (3.5-5.1) mmol/L Chloride (98-107) mmol/L Carbon Dioxide (22-30) mmol/L Anion Gap (5-15) MEQ/L BUN (7-17) mg/dL Creatinine (0.52-1.04) mg/dL Estimated GFR ML/MIN Glucose (74-106) mg/dL Lactic Acid (0.4-2.0) Calcium (8.4-10.2) mg/dL Total Bilirubin (0.2-1.3) mg/dL AST (14-36) U/L ALT (0-35) U/L Alkaline Phosphatase (38-126) U/L Serum Total Protein (6.3-8.2) g/dL Albumin (3.5-5.0) g/dL Urine Color YELLOW (YELLOW) Urine Appearance SLIGHTLY CLOUDY (CLEAR) Urine pH 6.0 (5-6) Ur Specific [place] 1.011 (1.005-1.025) Urine Protein NEGATIVE (Negative) Urine Ketones NEGATIVE (NEGATIVE) Urine Blood NEGATIVE (0-5) [place]/ul Urine Nitrite NEGATIVE (NEGATIVE) Urine Bilirubin NEGATIVE (NEGATIVE) Urine Urobilinogen NEGATIVE (0-1) mg/dL Ur Leukocyte Esterase NEGATIVE (NEGATIVE) Urine WBC (Auto) 0-2 (0-5) /HPF Urine RBC (Auto) 0-2 (0-2) /HPF U Epithel Cells (Auto) FEW (FEW) /HPF Urine Bacteria (Auto) MODERATE (NEGATIVE) /HPF Urine Mucus (Auto) SLIGHT (NEGATIVE) /HPF Urine Culture Reflexed YES (NO) Urine Glucose NEGATIVE (NEGATIVE) mg/dL Urine HCG, Qual (Negative) Influenza Type A Ag (NEGATIVE) Influenza Type B Ag (NEGATIVE) RSV (PCR) (Negative) SARS-CoV-2 (PCR) (NEGATIVE) - Progress Progress: improved Air Movement: fair Progress Note: Patient reassessed. She feels somewhat better. Work-up reveals a multifocal pneumonia. Patient has leukocytosis of 32,000. Antibiotics infused. In light of patient's hypoxia and pneumonia we will admit patient for further evaluation and treatment. Covid test pending. Plan of care discussed with patient. She agrees to admission [facility] for further evaluation and treatment. 05/29/21 03:27 Covid test negative. Case discussed with Dr. Richter who excepts admission to observation. 05/29/21 04:50 Blood Culture(s) Obtained: Yes Antibiotics given: Yes Discussed with DrKizzy: Salvador Will see patient in: hospital (observation) Counseled pt/family regarding: lab results, diagnosis, need for follow-up, rad results - Departure Departure Disposition: Observation Clinical Impression: Hypoxia, Multifocal pneumonia, Respiratory alkalosis, Lung nodule, Pleural ef fusion, Hepatic steatosis Condition: Stable Critical Care Time: No
[2021-05-28] MEDS ORDERED: TYLENOL 325 MG PO ONE (23:31)
[2021-05-28] MEDS ORDERED: TYLENOL 325 MG ONE (23:35)
[2021-05-28] MEDS ORDERED: solu-MEDROL ONE (23:36)
[2021-05-28] MEDS ORDERED: Sterile H2O 10 ml IJ ONE (23:36)
[2021-05-28 23:37] LABS: Absolute Neutrophil Ct (ANC) 29.86 (1.4-6.9); Basophil (Absolute #) 0.01 (0-0.4); Eosinophil (Absolute #) 0 (0-0.5); Hematocrit 35.7 % (35-47); Hemoglobin 12.1 gm/dl (12.0-16.0); Lymphocyte (Absolute #) 2.97 (1.0-4.6); Lymphocytes % 8.3 % (24.0-44.0); Mean Cell Volume 89.7 fl (78-100); Mean Corpuscular Hemoglobin 30.4 pg (26-32); Mean Corpuscular Hgb Concent. 33.9 g/dl (32-36); Mean Platelet Volume 9.5 fl (7.5-11.0); Monocyte (Absolute #) 2.97 (0.0-1.3); Monocytes % 8.3 % (0.0-12.0); Neutrophil % 83.4 % (36.0-66.0); Platelet Count 208 K/mm3 (150-450); Red Blood Count 3.98 M/mm3 (4.1-5.4); Red Cell Distribution Width 13.8 % (11.5-14.0)
[2021-05-28 23:45] LABS: White Blood Count 35.8 K/mm3 (4.0-10.5)
[2021-05-28 23:51] LABS: ALBUMIN 3.8 g/dL (3.5-5.0); ALKALINE PHOSPHATASE 124 U/L (38-126); ANION GAP 14.8 MEQ/L (5-15); BLOOD UREA NITROGEN 10 mg/dL (7-17); CHLORIDE 98 mmol/L (98-107); Calcium 9.1 mg/dL (8.4-10.2); Carbon Dioxide 23 mmol/L (22-30); Creatinine 1 0.85 mg/dL (0.52-1.04); EST GLOMERULAR FILTRATION RATE > 60.0 ML/MIN; Glucose 127 mg/dL (74-106); Potassium 3.5 mmol/L (3.5-5.1); SGOT/AST 16 U/L (14-36); SGPT/ALT 15 U/L (0-35); SODIUM 132 mmol/L (137-145)
[2021-05-28 23:57] LABS: Appearance SLIGHTLY CLOUDY (CLEAR); Bacteria MODERATE /HPF (NEGATIVE); Bilirubin NEGATIVE (NEGATIVE); Blood NEGATIVE Ery/ul (0-5); Epithelial Cells FEW /HPF (FEW); Glucose NEGATIVE (NEGATIVE); Ketones NEGATIVE (NEGATIVE); Leukocyte Esterase NEGATIVE (NEGATIVE); Mucus SLIGHT /HPF (NEGATIVE); Nitrite NEGATIVE (NEGATIVE); Protein,Urine Dip NEGATIVE (Negative); RBC 0-2 /HPF (0-2); Specific Gravity 1.011 (1.005-1.025); Urobilinogen NEGATIVE mg/dL (0-1); WBC 0-2 /HPF (0-5)
[2021-05-29 01:21] LABS: A-aADO2 90; ABG HEMOGLOBIN 12.2; ABG POTASSIUM 3.7 (3.5-5.1); ARTERIAL BLD GAS O2 SATURATION 96.5 % (95-100); ARTERIAL BLOOD GAS FIO2 28 %; ARTERIAL BLOOD GAS PCO2 29 mmHg (35-45); ARTERIAL BLOOD GAS PO2 73 mmHg (75-100); ARTERIAL BLOOD GAS pH 7.51 (7.35-7.45); HCO3- 23.1 (22-28); HGB O2 SAT 94.8 g/dF (94-100); Methhemoglobin 0.8 % (1.4-1.5)
[2021-05-29 01:22] LABS: ABG SITE RIGHT RADIAL; ALLEN TEST OK? YES
[2021-05-29] MEDS ORDERED: ROCEPHIN 2 Gm-D5w 50ML BAG** 2 G/50 ML IVPB IV STA (03:13)
[2021-05-29] MEDS ORDERED: Zithromax 500 MG/ 250 ML NaCl Premix 500 MG/250 ML IVPB IV STA (03:13)
[2021-05-29] MEDS ORDERED: Zithromax 500 MG/ 250 ML NaCl Premix 500 MG/250 ML IVPB IV ONE (03:16)
[2021-05-29] MEDS ORDERED: ROCEPHIN 2 Gm-D5w 50ML BAG** 2 G/50 ML IVPB IV ONE (03:16)
[2021-05-29 04:22] LABS: INFLUENZA A NEGATIVE (NEGATIVE); INFLUENZA B NEGATIVE (NEGATIVE); RESPIRATORY SYNCTIAL VIRUS NEGATIVE (Negative); SARS-CoV-2 Xpert Express NEGATIVE (NEGATIVE)
[2021-05-29] MEDS ORDERED: VANCOMYCIN 1 GRAM/200 ML BAG 1 GM/200 ML PIGGYBACK IV SCH (05:00)
[2021-05-29] MEDS ORDERED: PROVENTIL Solution 2.5 MG/0.5 ML IH ONE (05:21)
[2021-05-29] MEDS: PROVENTIL 2.5 MG/3 ML NEB IH PRN ×2 (05:27→18:51)
[2021-05-29] MEDS ORDERED: Zosyn 3.375 GM Vial 3.375 GM in Sodium Chloride 100ML MINI-BAG PLUS 100 ML IV SCH (06:00)
[2021-05-29] MEDS: Zofran 4 MG/2 ML VIAL IV PRN ×3 (06:31→14:51)
[2021-05-29] MEDS: MORPHINE SULFATE 4 MG INJ IV PRN ×4 (06:32→23:21)
[2021-05-29] MEDS ORDERED: ATARAX 25 MG PO PRN (07:43)
--- NOTE | 2021-05-29 08:50 | XRAY ---
Indication: Pulmonary embolus. Elevated d-dimer. Multiple contiguous axial images obtained through the chest using 80 cc Isovue 370 contrast and PE protocol. Comparison: June 05, 2017. There is good opacification of the pulmonary arteries. However mild diffuse respiration artifact limits evaluation for pulmonary embolus. No obvious central pulmonary embolus. Heart is not enlarged. Aorta is normal in course and caliber. No pathologic mediastinal/hilar lymphadenopathy. Lungs demonstrates new mild diffuse bilateral patchy groundglass opacities with large focus of medial right upper lobe consolidation/atelectasis. Tiny left effusion. No pneumothorax. Bony thorax intact. Limited upper abdomen demonstrates 14 cm splenomegaly and cholecystectomy clips. Impression: 1. Pulmonary embolus limited by respiration artifact. No obvious pulmonary embolus. 2. New diffuse bilateral patchy airspace disease with large right upper lobe consolidation/atelectasis and tiny left effusion. 3. Again incidental splenomegaly. Comment: Preliminary interpretation made by [facility]. No critical discrepancy.
[2021-05-29] MEDS: Zanaflex 4 MG PO SCH ×3 (08:51→21:01)
[2021-05-29] MEDS: Mirapex 0.5 MG Tablet PO SCH (08:51)
[2021-05-29] MEDS: Wellbutrin XL 150 MG PO SCH (08:51)
[2021-05-29] MEDS: NEURONTIN 300 MG PO SCH ×2 (08:51→21:01)
[2021-05-29] MEDS: SYNTHROID 75 MCG PO SCH (08:52)
[2021-05-29] MEDS: VANCOMYCIN 1 GRAM/200 ML BAG 1 GM/200 ML PIGGYBACK IV SCH ×3 (08:52→23:22)
[2021-05-29] MEDS: ENOXAPARIN SODIUM SQ SCH (08:52)
[2021-05-29] MEDS ORDERED: Colace 100 MG PO PRN (08:59)
[2021-05-29] MEDS ORDERED: Zanaflex 4 MG PO SCH (10:00)
[2021-05-29] MEDS ORDERED: GABAPENTIN ENACARBIL 600 MG PO SCH (10:00)
[2021-05-29] MEDS: Zosyn 3.375 GM Vial 3.375 GM in Sodium Chloride 100ML MINI-BAG PLUS 100 ML IV SCH ×2 (12:06→18:03)
--- NOTE | 2021-05-29 12:31 | PCM.HP ---
History of Present Illness - Chief Complaint Chief Complaint: Pneumonia History of Present Illness: is a 25 year old female pt of mine from [facility] with PMHx asthma, Crohn's dz, hyperglycemia, hx opiate use, depression, elevated blood pressure, GERD, migraine, schizoaffective d/o, lung nodule, pleural effusion, and hepatic steatosis who was admitted through ER with pneumonia. She c/o 1 week of chills and cough. Only had vomiting today. Is currently having some abdominal cramps. Her R posterior shoulder was hurting, 10/ initially and now /10 with pain medicine. Her Chest CT showed bilateral patchy airspace disease with RUL consolidation/atelectasis. She was initially given IV rocephin and zithromax, which was changed to zosyn and vancomycin. She received 1 dose of IV solumedrol 125mg for wheezing. - Review of Systems Constitutional: Chills, Fatigue Respiratory: Cough, Short Of Breath Cardiac: Edema (LE - chronic) Abdominal/Gastrointestinal: Abdominal Pain, Nausea, Vomiting Musculoskeletal: Back Pain Neurological: Dizziness (since , had a seizure, is getting neurology workup) Medications & Allergies Home Medications: Home Medication List Bupropion HCl [Wellbutrin Xl] 1 tab PO DAILY 01/29/19 [History Confirmed 05/28/21] hydrOXYzine pamoate [Vistaril] 50 mg PO BID PRN PRN 01/29/19 [History Confirmed 05/28/21] Trazodone HCl 150 mg [Desyrel 150 MG] 150 mg PO HS 03/23/19 [History Confirmed 05/28/21] risperiDONE [Risperidone] 3 mg PO HS 03/23/19 [History Confirmed 05/28/21] Albuterol 8 gm Mdi Hfa [Ventolin Hfa MDI] 90 mcg IH Q4H PRN #1 [email or web address] 11/14/20 [Rx Confirmed 05/28/21] Gabapentin Enacarbil [Horizant] 1 ea BID 03/19/21 [History Confirmed 05/28/21] Levothyroxine Sodium 75 Mcg [Synthroid 75 Mcg] 1 ea DAILY 03/19/21 [History Confirmed 05/28/21] Pramipexole Di-HCl 0.5 mg [Mirapex 0.5 MG Tablet] 1 ea PO DAILY 03/19/21 [History Confirmed 05/28/21] Tizanidine HCl 1 ea TID 03/19/21 [History Confirmed 05/28/21] Allergies/Adverse Reactions: Allergies Allergy/AdvReac Type Severity Reaction Status Date / Time adhesive tape Allergy Intermediate Blisters Verified 05/28/21 22:20 t[place] Allergy Verified 05/28/21 22:20 paroxetine HCl [From Paxil] AdvReac Nausea Verified 05/28/21 22:20 - Past Medical History Past Medical History: Yes Neurological History: Migraines ENT History: No Pertinent History Cardiac History: No Pertinent History Respiratory History: Asthma Endocrine Medical History: No Pertinent History Musculoskelatal History: No Pertinent History GI Medical History: Irritable Bowel, Crohns Disease, GERD, Gallbladder Disease History: No Pertinent History Pyscho-Social History: Depression, Anxiety Reproductive Disorders: Other Comment: Reports Crohns; cysts on ovaries - Female History Are you now?: No - Past Surgical History Past Surgical History: Yes Neuro Surgical History: No Pertinent History Cardiac History: No Pertinent History Respiratory Surgery: No Pertinent History GI Surgical History: Cholecystectomy Genitourinary Surgical Hx: Other Musculskeletal Surgical Hx: Orthopedic Surgery Female Surgical History: Section Other Surgical History: right rotator cuff repair. Ear tubes bilat,ovarian cyst 2017. ovarian cyst removal jun 2016. colonscopy jun 2016 - Social History Smoking Status: Current every day smoker How long have you smoked: 2 years Exposure to second hand smoke: Yes Alcohol: Rarely Drug Use: none Significant Family History: no pertinent family hx - Physical Exam Vital Signs: Vital Signs - 24 hr Temp Pulse Resp BP Pulse Ox 05/29/21 08:55 90 22 86 L 05/29/21 08:00 96.1 F 97 H 26 H 109/67 87 L 05/29/21 05:43 96.5 F 98 H 18 113/69 92 L 05/29/21 05:27 98 H 18 93 L 05/29/21 05:25 96.5 F 98 H 18 113/69 93 L 05/29/21 04:53 95 05/29/21 04:00 90 24 101/76 95 05/29/21 03:00 86 26 H 90/50 93 L 05/29/21 02:00 88 26 H 103/68 93 L 05/29/21 01:05 90 109/68 94 L 05/29/21 00:08 91 H 96/77 96 05/28/21 23:22 98 H 21 95 05/28/21 23:19 102 H 19 123/79 96 05/28/21 23:04 99 05/28/21 22:22 99.4 F 106 H 24 122/74 90 L General Appearance: no apparent distress, alert (mildly somnolent) Neurologic Exam: oriented x 3, cooperative Eye Exam: eyes nml inspection Neck Exam: normal inspection, non-tender, No lymphadenopathy Respiratory Exam: lungs clear (rough breath sounds throughout. good air exchange), No crackles/rales, No rhonchi, No wheezing Cardiovascular Exam: regular rate/rhythm, normal heart sounds Gastrointestinal/Abdomen Exam: soft, normal bowel sounds, No tenderness, No distention, No mass, No guarding, No rebound Back Exam: normal inspection, CVA tenderness (on R) Extremity Exam: normal inspection, No pedal edema, No swelling Skin Exam: normal color, warm, dry, No rash Results - Labs Lab/Micro Results: Lab Results-Last 24 Hours 05/28/21 05/28/21 05/28/21 Range/Units 23:21 23:25 23:25 WBC 35.8 H* (4.0-10.5) K/mm3 RBC 3.98 L (4.1-5.4) M/mm3 Hgb 12.1 (12.0-16.0) gm/dl Hct 35.7 (35-47) % MCV 89.7 (78-100) fl MCH 30.4 (26-32) pg MCHC 33.9 (32-36) g/dl RDW 13.8 (11.5-14.0) % Plt Count 208 (150-450) K/mm3 MPV 9.5 (7.5-11.0) fl Gran % 83.4 H (36.0-66.0) % Eos # (Auto) 0 (0-0.5) Absolute Lymphs (auto) 2.97 (1.0-4.6) Absolute Monos (auto) 2.97 H (0.0-1.3) Lymphocytes % 8.3 L (24.0-44.0) % Monocytes % 8.3 (0.0-12.0) % Eosinophils % 0.0 (0.00-5.0) % Basophils % 0.0 (0.0-0.4) % Absolute Granulocytes 29.86 H (1.4-6.9) Basophils # 0.01 (0-0.4) Smear Path Review Pending D-Dimer (215-500) ng/mL Puncture Site pCO2 (35-45) mmHg pO2 (75-100) mmHg Base Excess (-2.0-2.0) O2 Saturation (94-100) g/dF ABG pH (7.35-7.45) ABG HCO3 (22-28) ABG O2 Sat (Measured) (95-100) % Syd Test A-a Gradient a/A Ratio Hemoglobin Carboxyhemoglobin (0.0-6.9) % THgb Methemoglobin (1.4-1.5) % Temperature C POC O2 Flow Rate % Sodium 132 L (137-145) mmol/L Potassium 3.5 (3.5-5.1) mmol/L Chloride 98 (98-107) mmol/L Carbon Dioxide 23 (22-30) mmol/L Anion Gap 14.8 (5-15) MEQ/L BUN 10 (7-17) mg/dL Creatinine 0.85 (0.52-1.04) mg/dL Estimated GFR > 60.0 ML/MIN Glucose 127 H (74-106) mg/dL Lactic Acid (0.4-2.0) Calcium 9.1 (8.4-10.2) mg/dL Total Bilirubin 0.80 (0.2-1.3) mg/dL AST 16 (14-36) U/L ALT 15 (0-35) U/L Alkaline Phosphatase 124 (38-126) U/L Serum Total Protein 7.0 (6.3-8.2) g/dL Albumin 3.8 (3.5-5.0) g/dL Urine Color YELLOW (YELLOW) Urine Appearance SLIGHTLY CLOUDY (CLEAR) Urine pH 6.0 (5-6) Ur Specific Hillister 1.011 (1.005-1.025) Urine Protein NEGATIVE (Negative) Urine Ketones NEGATIVE (NEGATIVE) Urine Blood NEGATIVE (0-5) Ever[place]/ul Urine Nitrite NEGATIVE (NEGATIVE) Urine Bilirubin NEGATIVE (NEGATIVE) Urine Urobilinogen NEGATIVE (0-1) mg/dL Ur Leukocyte Esterase NEGATIVE (NEGATIVE) Urine WBC (Auto) 0-2 (0-5) /HPF Urine RBC (Auto) 0-2 (0-2) /HPF U Epithel Cells (Auto) FEW (FEW) /HPF Urine Bacteria (Auto) MODERATE (NEGATIVE) /HPF Urine Mucus (Auto) SLIGHT (NEGATIVE) /HPF Urine Culture Reflexed YES (NO) Urine Glucose NEGATIVE (NEGATIVE) mg/dL Urine HCG, Qual (Negative) Influenza Type A Ag (NEGATIVE) Influenza Type B Ag (NEGATIVE) RSV (PCR) (Negative) SARS-CoV-2 (PCR) (NEGATIVE) 05/28/21 05/28/21 05/29/21 Range/Units 23:25 23:43 01:12 WBC (4.0-10.5) K/mm3 RBC (4.1-5.4) M/mm3 Hgb (12.0-16.0) gm/dl Hct (35-47) % MCV (78-100) fl MCH (26-32) pg MCHC (32-36) g/dl RDW (11.5-14.0) % Plt Count (150-450) K/mm3 MPV (7.5-11.0) fl Gran % (36.0-66.0) % Eos # (Auto) (0-0.5) Absolute Lymphs (auto) (1.0-4.6) Absolute Monos (auto) (0.0-1.3) Lymphocytes % (24.0-44.0) % Monocytes % (0.0-12.0) % Eosinophils % (0.00-5.0) % Basophils % (0.0-0.4) % Absolute Granulocytes (1.4-6.9) Basophils # (0-0.4) Smear Path Review D-Dimer 540 H* (215-500) ng/mL Puncture Site pCO2 (35-45) mmHg pO2 (75-100) mmHg Base Excess (-2.0-2.0) O2 Saturation (94-100) g/dF ABG pH (7.35-7.45) ABG HCO3 (22-28) ABG O2 Sat (Measured) (95-100) % Syd Test A-a Gradient a/A Ratio Hemoglobin Carboxyhemoglobin (0.0-6.9) % THgb Methemoglobin (1.4-1.5) % Temperature C POC O2 Flow Rate % Sodium (137-145) mmol/L Potassium (3.5-5.1) mmol/L Chloride (98-107) mmol/L Carbon Dioxide (22-30) mmol/L Anion Gap (5-15) MEQ/L BUN (7-17) mg/dL Creatinine (0.52-1.04) mg/dL Estimated GFR ML/MIN Glucose (74-106) mg/dL Lactic Acid 0.9 (0.4-2.0) Calcium (8.4-10.2) mg/dL Total Bilirubin (0.2-1.3) mg/dL AST (14-36) U/L ALT (0-35) U/L Alkaline Phosphatase (38-126) U/L Serum Total Protein (6.3-8.2) g/dL Albumin (3.5-5.0) g/dL Urine Color (YELLOW) Urine Appearance (CLEAR) Urine pH (5-6) Ur Specific Hillister (1.005-1.025) Urine Protein (Negative) Urine Ketones (NEGATIVE) Urine Blood (0-5) Everton/ul Urine Nitrite (NEGATIVE) Urine Bilirubin (NEGATIVE) Urine Urobilinogen (0-1) mg/dL Ur Leukocyte Esterase (NEGATIVE) Urine WBC (Auto) (0-5) /HPF Urine RBC (Auto) (0-2) /HPF U Epithel Cells (Auto) (FEW) /HPF Urine Bacteria (Auto) (NEGATIVE) /HPF Urine Mucus (Auto) (NEGATIVE) /HPF Urine Culture Reflexed (NO) Urine Glucose (NEGATIVE) mg/dL Urine HCG, Qual NEGATIVE (Negative) Influenza Type A Ag (NEGATIVE) Influenza Type B Ag (NEGATIVE) RSV (PCR) (Negative) SARS-CoV-2 (PCR) (NEGATIVE) 05/29/21 05/29/21 Range/Units 01:15 03:37 WBC (4.0-10.5) K/mm3 RBC (4.1-5.4) M/mm3 Hgb (12.0-16.0) gm/dl Hct (35-47) % MCV (78-100) fl MCH (26-32) pg MCHC (32-36) g/dl RDW (11.5-14.0) % Plt Count (150-450) K/mm3 MPV (7.5-11.0) fl Gran % (36.0-66.0) % Eos # (Auto) (0-0.5) Absolute Lymphs (auto) (1.0-4.6) Absolute Monos (auto) (0.0-1.3) Lymphocytes % (24.0-44.0) % Monocytes % (0.0-12.0) % Eosinophils % (0.00-5.0) % Basophils % (0.0-0.4) % Absolute Granulocytes (1.4-6.9) Basophils # (0-0.4) Smear Path Review D-Dimer (215-500) ng/mL Puncture Site RIGHT RADIAL pCO2 29 L (35-45) mmHg pO2 73 L (75-100) mmHg Base Excess 1.0 (-2.0-2.0) O2 Saturation 94.8 (94-100) g/dF ABG pH 7.51 H (7.35-7.45) ABG HCO3 23.1 (22-28) ABG O2 Sat (Measured) 96.5 (95-100) % Syd Test YES A-a Gradient 90 a/A Ratio 0.45 Hemoglobin 12.2 Carboxyhemoglobin 1.0 (0.0-6.9) % THgb Methemoglobin 0.8 L (1.4-1.5) % Temperature 37.0 C POC O2 Flow Rate 28 % Sodium (137-145) mmol/L Potassium 3.7 (3.5-5.1) mmol/L Chloride (98-107) mmol/L Carbon Dioxide (22-30) mmol/L Anion Gap (5-15) MEQ/L BUN (7-17) mg/dL Creatinine (0.52-1.04) mg/dL Estimated GFR ML/MIN Glucose (74-106) mg/dL Lactic Acid (0.4-2.0) Calcium (8.4-10.2) mg/dL Total Bilirubin (0.2-1.3) mg/dL AST (14-36) U/L ALT (0-35) U/L Alkaline Phosphatase (38-126) U/L Serum Total Protein (6.3-8.2) g/dL Albumin (3.5-5.0) g/dL Urine Color (YELLOW) Urine Appearance (CLEAR) Urine pH (5-6) Ur Specific Hillister (1.005-1.025) Urine Protein (Negative) Urine Ketones (NEGATIVE) Urine Blood (0-5) Everton/ul Urine Nitrite (NEGATIVE) Urine Bilirubin (NEGATIVE) Urine Urobilinogen (0-1) mg/dL Ur Leukocyte Esterase (NEGATIVE) Urine WBC (Auto) (0-5) /HPF Urine RBC (Auto) (0-2) /HPF U Epithel Cells (Auto) (FEW) /HPF Urine Bacteria (Auto) (NEGATIVE) /HPF Urine Mucus (Auto) (NEGATIVE) /HPF Urine Culture Reflexed (NO) Urine Glucose (NEGATIVE) mg/dL Urine HCG, Qual (Negative) Influenza Type A Ag NEGATIVE (NEGATIVE) Influenza Type B Ag NEGATIVE (NEGATIVE) RSV (PCR) NEGATIVE (Negative) SARS-CoV-2 (PCR) NEGATIVE (NEGATIVE) - Radiology Impressions Radiology Exams & Impressions: Radiology Procedures Category Date Time Status CHEST WITH CONTRAST [CT] Stat Exams 05/29/21 00:33 Completed - Other Procedures and Tests Respiratory Therapy 05/28/21 23:22 Respiratory Therapy Assessment DAILY 05/29/21 05:38 Oxygen Nasal Cannula 2 lpm Assessment/Plan (1) Multifocal pneumonia Current Visit: Yes Status: Acute Assessment & Plan: on IV vancomycin and zosyn. Lungs sound good to me, better than reported from ER. She will likely be a few days on IV antibiotics. When she is improved, she will need f/u CXR (1 mo) and may need f/u CT. Code(s): J18.9 - PNEUMONIA, UNSPECIFIED ORGANISM (2) Asthma Current Visit: Yes Status: Chronic Qualifiers: Asthma severity: mild Asthma persistence: intermittent Asthma complication type: with acute exacerbation Qualified Code(s): J45.21 - Mild intermittent asthma with (acute) exacerbation Code(s): J45.909 - UNSPECIFIED ASTHMA, UNCOMPLICATED (3) Hyponatremia Current Visit: Yes Status: Acute Assessment & Plan: recheck in a.m. Code(s): E87.1 - HYPO-OSMOLALITY AND HYPONATREMIA (4) Leukocytosis Current Visit: No Status: Acute Qualifiers: Leukocytosis type: unspecified Qualified Code(s): D72.829 - Elevated white blood cell count, unspecified Assessment & Plan: recheck in a.m. Code(s): D72.829 - ELEVATED WHITE BLOOD CELL COUNT, UNSPECIFIED (5) Crohn disease Current Visit: No Status: Chronic Qualifiers: Gastrointestinal tract location: unspecified location Digestive disease complication type: unspecified complication Qualified Code(s): K50.919 - Crohn's disease, unspecified, with unspecified complications Code(s): K50.90 - CROHN'S DISEASE, UNSPECIFIED, WITHOUT COMPLICATIONS
[2021-05-29] MEDS: Risperdal 1 MG PO SCH (20:52)
[2021-05-29] MEDS: Desyrel 150 MG PO SCH (21:01)
[2021-05-29] MEDS ORDERED: RISPERIDONE 3 MG PO SCH (22:00)
[2021-05-30] MEDS ORDERED: Rocephin 1000 MG INJ IM ONE (02:21)
[2021-05-30] MEDS ORDERED: Zithromax 250 MG TABLET PO ONE (02:28)
[2021-05-30] MEDS: Zosyn 3.375 GM Vial 3.375 GM in Sodium Chloride 100ML MINI-BAG PLUS 100 ML IV SCH ×5 (02:29→23:04)
[2021-05-30 05:20] LABS: Hematocrit 35.2 % (35-47); Hemoglobin 11.7 gm/dl (12.0-16.0); Mean Cell Volume 91.9 fl (78-100); Mean Corpuscular Hemoglobin 30.5 pg (26-32); Mean Corpuscular Hgb Concent. 33.2 g/dl (32-36); Platelet Count 259 K/mm3 (150-450); Red Blood Count 3.83 M/mm3 (4.1-5.4); Red Cell Distribution Width 14.4 % (11.5-14.0)
[2021-05-30 05:49] LABS: ALBUMIN 3.4 g/dL (3.5-5.0); ALKALINE PHOSPHATASE 119 U/L (38-126); BLOOD UREA NITROGEN 12 mg/dL (7-17); CHLORIDE 103 mmol/L (98-107); Calcium 9.1 mg/dL (8.4-10.2); Carbon Dioxide 25 mmol/L (22-30); Creatinine 1 0.91 mg/dL (0.52-1.04); EST GLOMERULAR FILTRATION RATE > 60.0 ML/MIN; Glucose 170 mg/dL (74-106); Potassium 3.6 mmol/L (3.5-5.1); SGOT/AST 15 U/L (14-36); SGPT/ALT 12 U/L (0-35); SODIUM 139 mmol/L (137-145); Total Protein 6.4 g/dL (6.3-8.2)
[2021-05-30 06:04] LABS: White Blood Count 28.7 K/mm3 (4.0-10.5)
[2021-05-30 07:04] LABS: ANISOCYTOSIS 1+; BAND 2 % (0.0-2.0); Lymphocytes 12 % (24-44); Monocyte 2 % (0.0-12.0); Neutrophils 84 % (36.0-66.0); Platelet Estimate NORMAL (NORMAL); Total Cells Counted 100; Toxic Granulation 1+
[2021-05-30] MEDS: Zanaflex 4 MG PO SCH ×3 (08:01→21:01)
--- NOTE | 2021-05-30 08:07 | PCM.NOTE ---
Date and Time: 05/30/21 0804 Subjective Assessment: Pt lost her IV access last night, was restarted, then lost again. She missed her zosyn and vancomycin. RN called and I ordered 2g IM rocephin and 500mg po zithromax. This morning, will consult with CAR TRIMMER about IV access. She is feeling a little better. Her WBC are still elevated, 28,000. She says t he morphine really helps the pain that is caused by coughing. Tolerated some solid food last night without vomiting. - Review of Systems Constitutional: No Fever Respiratory: Cough, Short Of Breath Objective Exam General Appearance: no apparent distress, other (appears tired) Neurologic Exam: oriented x 3, cooperative, other (affect is diminished) Skin Exam: normal color, warm, dry, No rash Neck Exam: normal inspection Respiratory Exam: diminished breath sounds (good air exchange), rhonchi (RML), No crackles/rales, No wheezing Cardiovascular Exam: regular rate/rhythm, normal heart sounds, No murmur Extremity Exam: normal inspection, No pedal edema, No swelling OBJECTIVE DATA Vital Signs: Vital Signs - 24 hr Temp Pulse Resp BP Pulse Ox 05/30/21 07:32 97.9 F 98 H 17 104/63 95 05/30/21 04:00 97.6 F 71 18 122/70 95 05/30/21 00:00 97.9 F 81 19 104/64 94 L 05/29/21 19:46 97.5 F 66 20 115/69 98 05/29/21 18:50 67 20 96 05/29/21 16:00 96.3 F 86 15 102/73 92 L 05/29/21 12:00 95.1 F 84 19 100/61 83 L 05/29/21 08:55 90 22 86 L Pain Assessment - Last Documented Pain Intensity 0 Pain Scale Used 0-10 Pain Scale Intake and Output: Intake & Output 05/27/21 05/28/21 05/29/21 05/30/21 11:59 11:59 11:59 11:59 Intake Total 20 2151 Output Total 300 2600 Balance -280 -449 Weight 81.4 kg Lab Results: Lab Results-Last 24 Hours 05/28/21 05/30/21 05/30/21 Range/Units 23:25 05:13 05:13 WBC 28.7 H* (4.0-10.5) K/mm3 RBC 3.83 L (4.1-5.4) M/mm3 Hgb 11.7 L (12.0-16.0) gm/dl Hct 35.2 (35-47) % MCV 91.9 (78-100) fl MCH 30.5 (26-32) pg MCHC 33.2 (32-36) g/dl RDW 14.4 H (11.5-14.0) % Plt Count 259 (150-450) K/mm3 MPV 10.0 (7.5-11.0) fl Segmented Neutrophils 84 H (36.0-66.0) % Band Neutrophils 2 (0.0-2.0) % Lymphocytes (Manual) 12 L (24-44) % Monocytes (Manual) 2 (0.0-12.0) % Toxic Granulation 1+ Platelet Estimate NORMAL (NORMAL) RBC Morphology ABNORMAL Anisocytosis 1+ Smear Path Review Sodium 139 D (137-145) mmol/L Potassium 3.6 (3.5-5.1) mmol/L Chloride 103 (98-107) mmol/L Carbon Dioxide 25 (22-30) mmol/L Anion Gap 15.0 (5-15) MEQ/L BUN 12 (7-17) mg/dL Creatinine 0.91 (0.52-1.04) mg/dL Estimated GFR > 60.0 ML/MIN Glucose 170 H (74-106) mg/dL Calcium 9.1 (8.4-10.2) mg/dL Total Bilirubin 0.40 (0.2-1.3) mg/dL AST 15 (14-36) U/L ALT 12 (0-35) U/L Alkaline Phosphatase 119 (38-126) U/L Serum Total Protein 6.4 (6.3-8.2) g/dL Albumin 3.4 L (3.5-5.0) g/dL Radiology Exams: Radiology Procedures Category Date Time Status CHEST WITH CONTRAST [CT] Stat Exams 05/29/21 00:33 Completed Assessment/Plan (1) Multifocal pneumonia Current Visit: Yes Status: Acute Assessment & Plan: [facility]MER to evaluate for IV access, thank you. Then will resume IV zosyn and vancomycin. Code(s): J18.9 - PNEUMONIA, UNSPECIFIED ORGANISM (2) Asthma Current Visit: Yes Status: Chronic Qualifiers: Asthma severity: mild Asthma persistence: intermittent Asthma complication type: with acute exacerbation Qualified Code(s): J45.21 - Mild intermittent asthma with (acute) exacerbation Code(s): J45.909 - UNSPECIFIED ASTHMA, UNCOMPLICATED (3) Hyponatremia Current Visit: Yes Status: Resolved Code(s): E87.1 - HYPO-OSMOLALITY AND HYPONATREMIA (4) Leukocytosis Current Visit: No Status: Acute Qualifiers: Leukocytosis type: unspecified Qualified Code(s): D72.829 - Elevated white blood cell count, unspecified Assessment & Plan: small improvement, still quite elevated. Code(s): D72.829 - ELEVATED WHITE BLOOD CELL COUNT, UNSPECIFIED (5) Crohn disease Current Visit: No Status: Chronic Qualifiers: Gastrointestinal tract location: unspecified location Digestive disease complication type: unspecified complication Qualified Code(s): K50.919 - Crohn's disease, unspecified, with unspecified complications Code(s): K50.90 - CROHN'S DISEASE, UNSPECIFIED, WITHOUT COMPLICATIONS
[2021-05-30] MEDS ORDERED: XYLOCAINE 1% HCL 20 ML MDV ONE (08:15)
[2021-05-30] MEDS: Mirapex 0.5 MG Tablet PO SCH (09:34)
[2021-05-30] MEDS: NEURONTIN 300 MG PO SCH ×2 (09:35→21:01)
[2021-05-30] MEDS: VANCOMYCIN 1 GRAM/200 ML BAG 1 GM/200 ML PIGGYBACK IV SCH ×2 (09:35→21:01)
[2021-05-30] MEDS: SYNTHROID 75 MCG PO SCH (09:35)
[2021-05-30] MEDS: MORPHINE SULFATE 4 MG INJ IV PRN ×4 (09:35→21:34)
[2021-05-30] MEDS: Wellbutrin XL 150 MG PO SCH (09:35)
[2021-05-30] MEDS: ENOXAPARIN SODIUM SQ SCH (09:35)
[2021-05-30] MEDS: Robitussin AC Syrup Unit Dose Cup PO PRN ×3 (11:44→18:29)
[2021-05-30] MEDS: PROVENTIL 2.5 MG/3 ML NEB IH PRN (19:04)
[2021-05-30] MEDS: Risperdal 1 MG PO SCH (21:01)
[2021-05-30] MEDS: Desyrel 150 MG PO SCH (21:01)
[2021-05-30] MEDS: Zofran 4 MG/2 ML VIAL IV PRN (21:02)
[2021-05-31] MEDS: MORPHINE SULFATE 4 MG INJ IV PRN ×2 (04:04→08:27)
[2021-05-31] MEDS: Robitussin AC Syrup Unit Dose Cup PO PRN (05:04)
[2021-05-31 05:32] LABS: Hematocrit 34.3 % (35-47); Mean Cell Volume 93.5 fl (78-100); Mean Corpuscular Hgb Concent. 32.1 g/dl (32-36); Mean Platelet Volume 9.9 fl (7.5-11.0); Platelet Count 230 K/mm3 (150-450); Red Blood Count 3.67 M/mm3 (4.1-5.4); Red Cell Distribution Width 14.7 % (11.5-14.0); White Blood Count 15.6 K/mm3 (4.0-10.5)
[2021-05-31 05:59] LABS: ANION GAP 13.4 MEQ/L (5-15); BLOOD UREA NITROGEN 9 mg/dL (7-17); CHLORIDE 105 mmol/L (98-107); Calcium 8.6 mg/dL (8.4-10.2); Carbon Dioxide 21 mmol/L (22-30); Creatinine 1 0.89 mg/dL (0.52-1.04); EST GLOMERULAR FILTRATION RATE > 60.0 ML/MIN; Glucose 141 mg/dL (74-106); Potassium 3.2 mmol/L (3.5-5.1); SODIUM 137 mmol/L (137-145)
[2021-05-31] MEDS: Zosyn 3.375 GM Vial 3.375 GM in Sodium Chloride 100ML MINI-BAG PLUS 100 ML IV SCH ×4 (06:07→23:40)
[2021-05-31 07:48] LABS: Eosinophil 1 % (0.00-3.0); Lymphocytes 30 % (24-44); Monocyte 3 % (0.0-12.0); Neutrophils 66 % (36.0-66.0); Platelet Estimate NORMAL (NORMAL); Total Cells Counted 100
[2021-05-31] MEDS: Zanaflex 4 MG PO SCH ×4 (08:57→21:54)
[2021-05-31] MEDS: SYNTHROID 75 MCG PO SCH (08:57)
[2021-05-31] MEDS: Mirapex 0.5 MG Tablet PO SCH (08:57)
[2021-05-31] MEDS: NEURONTIN 300 MG PO SCH ×2 (08:58→21:54)
[2021-05-31] MEDS: Wellbutrin XL 150 MG PO SCH (08:58)
[2021-05-31] MEDS: ENOXAPARIN SODIUM SQ SCH (08:58)
[2021-05-31] MEDS ORDERED: HYDROCODONE-CHLORPHEN ER SUSP PO PRN (09:02)
--- NOTE | 2021-05-31 09:02 | PCM.NOTE ---
Date and Time: 05/31/21 0900 Subjective Assessment: patient off of oxygen when I came in room, states she forgot to put it back on, was in no distress sitting in bed. has pain with cough, otherwise seems to be feeling better. Objective Exam General Appearance: no apparent distress Neurologic Exam: alert, oriented x 3 Respiratory Exam: rhonchi Cardiovascular Exam: regular rate/rhythm, normal heart sounds Gastrointestinal/Abdomen Exam: soft, No tenderness, No mass OBJECTIVE DATA Vital Signs: Vital Signs - 24 hr Temp Pulse Resp BP Pulse Ox 05/31/21 08:02 95 H 22 97 05/31/21 08:00 98.4 F 100 H 24 125/69 97 05/31/21 04:00 97.7 F 95 H 20 121/69 99 05/30/21 23:56 97.9 F 71 16 106/75 99 05/30/21 23:21 97.9 F 71 16 106/75 99 05/30/21 19:52 97.9 F 85 16 100/75 99 05/30/21 19:04 85 14 96 05/30/21 16:00 97.6 F 86 16 113/66 96 05/30/21 12:00 98.2 F 71 17 107/67 97 Pain Assessment - Last Documented Pain Intensity 10 Pain Scale Used 0-10 Pain Scale Intake and Output: Intake & Output 05/28/21 05/29/21 05/30/21 05/31/21 11:59 11:59 11:59 11:59 Intake Total 20 2271 2085 Output Total 300 2600 400 Balance -280 -329 1685 Weight 81.4 kg Lab Results: Lab Results-Last 24 Hours 05/31/21 05/31/21 Range/Units 04:50 04:50 WBC 15.6 H (4.0-10.5) K/mm3 RBC 3.67 L (4.1-5.4) M/mm3 Hgb 11.0 L (12.0-16.0) gm/dl Hct 34.3 L (35-47) % MCV 93.5 (78-100) fl MCH 30.0 (26-32) pg MCHC 32.1 (32-36) g/dl RDW 14.7 H (11.5-14.0) % Plt Count 230 (150-450) K/mm3 MPV 9.9 (7.5-11.0) fl Segmented Neutrophils 66 (36.0-66.0) % Lymphocytes (Manual) 30 (24-44) % Monocytes (Manual) 3 (0.0-12.0) % Eosinophils (Manual) 1 (0.00-3.0) % Platelet Estimate NORMAL (NORMAL) RBC Morphology NORMAL Sodium 137 (137-145) mmol/L Potassium 3.2 L (3.5-5.1) mmol/L Chloride 105 (98-107) mmol/L Carbon Dioxide 21 L (22-30) mmol/L Anion Gap 13.4 (5-15) MEQ/L BUN 9 (7-17) mg/dL Creatinine 0.89 (0.52-1.04) mg/dL Estimated GFR > 60.0 ML/MIN Glucose 141 H (74-106) mg/dL Calcium 8.6 (8.4-10.2) mg/dL Multi-Disciplinary Progress Notes: Multi-Disciplinary Progress Notes 05/30/21 12:45 Case Management Note by Mari Duran PATIENT STILL REQUIRING IV ANTIBIOTICS, NO PLAN TO D/C TODAY. WILL CONTINUE TO FOLLOW FOR ANY D/C NEEDS. Initialized on 05/30/21 12:45 - END OF NOTE Assessment/Plan (1) Multifocal pneumonia Current Visit: Yes Status: Acute Assessment & Plan: wbc improving, continue vanc/zosyn emperically. repeat chest xray tomorrow. Code(s): J18.9 - PNEUMONIA, UNSPECIFIED ORGANISM (2) Hypoxia Current Visit: Yes Status: Acute Code(s): R09.02 - HYPOXEMIA (3) Asthma Current Visit: Yes Status: Chronic Qualifiers: Asthma severity: mild Asthma persistence: intermittent Asthma complication type: with acute exacerbation Qualified Code(s): J45.21 - Mild intermittent asthma with (acute) exacerbation Code(s): J45.909 - UNSPECIFIED ASTHMA, UNCOMPLICATED
[2021-05-31] MEDS: Tessalon Perles 100 MG PO PRN (09:28)
[2021-05-31] MEDS ORDERED: TROUGH DRUG LEVELS IJ ONE (09:30)
[2021-05-31] MEDS: VANCOMYCIN 1 GRAM/200 ML BAG 1 GM/200 ML PIGGYBACK IV SCH ×2 (12:05→21:52)
[2021-05-31] MEDS ORDERED: TYLENOL 325 MG PO PRN (16:07)
[2021-05-31] MEDS: Zofran 4 MG/2 ML VIAL IV PRN (17:23)
[2021-05-31] MEDS: Desyrel 150 MG PO SCH (21:53)
[2021-05-31] MEDS: Risperdal 1 MG PO SCH (21:53)
[2021-06-01 05:48] LABS: Hematocrit 32.3 % (35-47); Hemoglobin 10.6 gm/dl (12.0-16.0); Mean Cell Volume 92.3 fl (78-100); Mean Corpuscular Hemoglobin 30.3 pg (26-32); Mean Corpuscular Hgb Concent. 32.8 g/dl (32-36); Mean Platelet Volume 10.2 fl (7.5-11.0); Platelet Count 194 K/mm3 (150-450); Red Cell Distribution Width 14.5 % (11.5-14.0); White Blood Count 16.2 K/mm3 (4.0-10.5)
[2021-06-01] MEDS: Zosyn 3.375 GM Vial 3.375 GM in Sodium Chloride 100ML MINI-BAG PLUS 100 ML IV SCH ×4 (06:02→23:50)
[2021-06-01 06:14] LABS: ANION GAP 11.2 MEQ/L (5-15); BLOOD UREA NITROGEN 5 mg/dL (7-17); CHLORIDE 109 mmol/L (98-107); Calcium 8.5 mg/dL (8.4-10.2); Carbon Dioxide 23 mmol/L (22-30); Creatinine 1 0.75 mg/dL (0.52-1.04); EST GLOMERULAR FILTRATION RATE > 60.0 ML/MIN; Glucose 75 mg/dL (74-106); Potassium 3.4 mmol/L (3.5-5.1); SODIUM 141 mmol/L (137-145)
[2021-06-01 06:46] LABS: Lymphocytes 16 % (24-44); Monocyte 14 % (0.0-12.0); Neutrophils 70 % (36.0-66.0); Platelet Estimate NORMAL (NORMAL); Total Cells Counted 100
--- NOTE | 2021-06-01 08:17 | PCM.NOTE ---
Date and Time: 06/01/21814 Subjective Assessment: patient reports she is feeling some better ,still requiring supplemental oxygen. wbc improved but have plateaud around 16,000 Objective Exam General Appearance: no apparent distress Neurologic Exam: alert, oriented x 3 Respiratory Exam: rhonchi Cardiovascular Exam: regular rate/rhythm, normal heart sounds Gastrointestinal/Abdomen Exam: soft, No tenderness, No mass Extremity Exam: normal inspection, normal range of motion OBJECTIVE DATA Vital Signs: Vital Signs - 24 hr Temp Pulse Resp BP Pulse Ox 06/01/21 07:53 97.6 F 101 H 21 137/76 99 06/01/21 07:18 100 H 18 98 06/01/21 04:00 98.5 F 107 H 20 114/55 98 05/31/21 23:57 97.6 F 105 H 26 H 125/75 89 L 05/31/21 20:00 98.4 F 96 H 20 120/72 98 05/31/21 19:03 122 H 24 99 05/31/21 16:00 99.9 F 107 H 27 H 130/67 90 L 05/31/21 12:00 98.5 F 105 H 21 103/61 93 L Pain Assessment - Last Documented Pain Intensity 0 Pain Scale Used 0-10 Pain Scale Intake and Output: Intake & Output 05/29/21 05/30/21 05/31/21 06/01/21 11:59 11:59 11:59 11:59 Intake Total 20 2271 2085 1180 Output Total 300 2600 400 600 Balance -280 -329 1685 580 Weight 81.4 kg Lab Results: Lab Results-Last 24 Hours 05/31/21 05/31/21 06/01/21 Range/Units 11:45 11:57 04:50 WBC 16.2 H (4.0-10.5) K/mm3 RBC 3.50 L (4.1-5.4) M/mm3 Hgb 10.6 L (12.0-16.0) gm/dl Hct 32.3 L (35-47) % MCV 92.3 (78-100) fl MCH 30.3 (26-32) pg MCHC 32.8 (32-36) g/dl RDW 14.5 H (11.5-14.0) % Plt Count 194 (150-450) K/mm3 MPV 10.2 (7.5-11.0) fl Segmented Neutrophils 70 H (36.0-66.0) % Lymphocytes (Manual) 16 L (24-44) % Monocytes (Manual) 14 H (0.0-12.0) % Platelet Estimate NORMAL (NORMAL) RBC Morphology NORMAL Sodium (137-145) mmol/L Potassium (3.5-5.1) mmol/L Chloride (98-107) mmol/L Carbon Dioxide (22-30) mmol/L Anion Gap (5-15) MEQ/L BUN (7-17) mg/dL Creatinine (0.52-1.04) mg/dL Estimated GFR ML/MIN Glucose (74-106) mg/dL Calcium (8.4-10.2) mg/dL Vancomycin Trough 10.33 (10-20) ug/mL HIV-1 Specimen Source PRESUMPTIVE NEGATIVE (NEGATIVE) 06/01/21 Range/Units 04:50 WBC (4.0-10.5) K/mm3 RBC (4.1-5.4) M/mm3 Hgb (12.0-16.0) gm/dl Hct (35-47) % MCV (78-100) fl MCH (26-32) pg MCHC (32-36) g/dl RDW (11.5-14.0) % Plt Count (150-450) K/mm3 MPV (7.5-11.0) fl Segmented Neutrophils (36.0-66.0) % Lymphocytes (Manual) (24-44) % Monocytes (Manual) (0.0-12.0) % Platelet Estimate (NORMAL) RBC Morphology Sodium 141 (137-145) mmol/L Potassium 3.4 L (3.5-5.1) mmol/L Chloride 109 H (98-107) mmol/L Carbon Dioxide 23 (22-30) mmol/L Anion Gap 11.2 (5-15) MEQ/L BUN 5 L (7-17) mg/dL Creatinine 0.75 (0.52-1.04) mg/dL Estimated GFR > 60.0 ML/MIN Glucose 75 (74-106) mg/dL Calcium 8.5 (8.4-10.2) mg/dL Vancomycin Trough (10-20) ug/mL HIV-1 Specimen Source (NEGATIVE) Radiology Exams: Radiology Procedures Category Date Time Status CHEST 1 VIEW (PORTABLE) Routine Exams 06/01/21 07:00 Taken Assessment/Plan (1) Multifocal pneumonia Current Visit: Yes Status: Acute Assessment & Plan: on vanc/zosyn, clinically improved. will need weaned from oxygen and tolerating room air prior to discharge. I do not appreciate wheezing on exam, no steroids. Code(s): J18.9 - PNEUMONIA, UNSPECIFIED ORGANISM (2) Hypoxia Current Visit: Yes Status: Acute Code(s): R09.02 - HYPOXEMIA (3) Asthma Current Visit: Yes Status: Chronic Qualifiers: Asthma severity: mild Asthma persistence: intermittent Asthma complication type: with acute exacerbation Qualified Code(s): J45.21 - Mild intermittent asthma with (acute) exacerbation Code(s): J45.909 - UNSPECIFIED ASTHMA, UNCOMPLICATED
--- NOTE | 2021-06-01 08:46 | XRAY ---
Indication: Pneumonia. Comparison: March 27, 2021. Portable chest demonstrates new subtle bilateral mid to lower lung hazy interstitial alveolar opacities, small left effusion, and right mid lung subsegmental atelectasis/scarring. Heart not enlarged. Bony thorax intact.
[2021-06-01] MEDS: ENOXAPARIN SODIUM SQ SCH (09:02)
[2021-06-01] MEDS: NEURONTIN 300 MG PO SCH ×2 (09:02→21:10)
[2021-06-01] MEDS: Wellbutrin XL 150 MG PO SCH (09:03)
[2021-06-01] MEDS: Zanaflex 4 MG PO SCH ×3 (09:03→21:10)
[2021-06-01] MEDS: Mirapex 0.5 MG Tablet PO SCH (09:03)
[2021-06-01] MEDS: SYNTHROID 75 MCG PO SCH (09:03)
[2021-06-01 09:57] LABS: HBsAg Screen Negative (Negative); HIV Screen 4th Generation wRfx Non Reactive (Non Reactive); Hep C Virus Ab <0.1 s/co ratio (0.0-0.9)
[2021-06-01] MEDS: Tessalon Perles 100 MG PO PRN ×2 (10:00→20:57)
[2021-06-01] MEDS ORDERED: XYLOCAINE 1% HCL 20 ML MDV ONE (11:46)
[2021-06-01] MEDS: VANCOMYCIN 1 GRAM/200 ML BAG 1 GM/200 ML PIGGYBACK IV SCH ×2 (12:40→21:10)
[2021-06-01] MEDS: Robitussin AC Syrup Unit Dose Cup PO PRN ×2 (12:52→19:37)
[2021-06-01] MEDS: Zofran 4 MG/2 ML VIAL IV PRN ×2 (12:52→19:37)
[2021-06-01] MEDS: Tums EX 750 MG PO PRN (13:55)
[2021-06-01] MEDS: Risperdal 1 MG PO SCH (21:10)
[2021-06-01] MEDS: Desyrel 150 MG PO SCH (21:10)
[2021-06-02] MEDS: Zosyn 3.375 GM Vial 3.375 GM in Sodium Chloride 100ML MINI-BAG PLUS 100 ML IV SCH ×2 (05:48→12:12)
[2021-06-02] MEDS: Tums EX 750 MG PO PRN (06:29)
[2021-06-02 06:51] LABS: Hematocrit 31.7 % (35-47); Hemoglobin 10.4 gm/dl (12.0-16.0); Mean Cell Volume 91.4 fl (78-100); Mean Corpuscular Hgb Concent. 32.8 g/dl (32-36); Platelet Count 329 K/mm3 (150-450); Red Blood Count 3.47 M/mm3 (4.1-5.4); Red Cell Distribution Width 14.1 % (11.5-14.0); White Blood Count 14.7 K/mm3 (4.0-10.5)
[2021-06-02 07:06] LABS: ANION GAP 17.7 MEQ/L (5-15); BLOOD UREA NITROGEN 4 mg/dL (7-17); CHLORIDE 108 mmol/L (98-107); Calcium 7.7 mg/dL (8.4-10.2); Carbon Dioxide 18 mmol/L (22-30); Creatinine 1 0.63 mg/dL (0.52-1.04); EST GLOMERULAR FILTRATION RATE > 60.0 ML/MIN; Glucose 81 mg/dL (74-106); Potassium 3.2 mmol/L (3.5-5.1); SODIUM 141 mmol/L (137-145)
[2021-06-02 08:09] LABS: Eosinophil 1 % (0.00-3.0); Lymphocytes 43 % (24-44); Monocyte 12 % (0.0-12.0); Neutrophils 44 % (36.0-66.0); Total Cells Counted 100
[2021-06-02 08:10] LABS: ANISOCYTOSIS 1+; Hypochromia 1+; Poikilocytosis 1+; Polychromasia 1+
[2021-06-02 08:12] LABS: Platelet Estimate NORMAL (NORMAL)
[2021-06-02] MEDS: ENOXAPARIN SODIUM SQ SCH (10:32)
[2021-06-02] MEDS: SYNTHROID 75 MCG PO SCH (10:32)
[2021-06-02] MEDS: Mirapex 0.5 MG Tablet PO SCH (10:32)
[2021-06-02] MEDS: VANCOMYCIN 1 GRAM/200 ML BAG 1 GM/200 ML PIGGYBACK IV SCH (10:33)
[2021-06-02] MEDS: Zanaflex 4 MG PO SCH ×2 (10:33→15:57)
[2021-06-02] MEDS: Wellbutrin XL 150 MG PO SCH (10:33)
[2021-06-02] MEDS: NEURONTIN 300 MG PO SCH (10:33)
[2021-06-02] MEDS: Zofran 4 MG/2 ML VIAL IV PRN (13:35)
[2021-06-02 16:39] VITALS: BP 113/78; PULSE 90; O2SAT 99
[2021-06-02] MEDS ORDERED: K-LYTE 25 MEQ PO ONE (17:00)
[2021-06-02] MEDS ORDERED: K-LYTE 25 MEQ ONE (17:04)
--- NOTE | 2021-06-02 17:18 | PCM.DS ---
Discharge Summary Date of Admission: 05/30/21 08:04 Admitting Physician: PENNY SILVA Primary Care Provider: PENNY SILVA Allergies Allergies adhesive tape Allergy (Intermediate, Verified 05/28/21 22:20) Blisters [place] Allergy (Verified 05/28/21 22:20) paroxetine HCl [From Paxil] Adverse Reaction (Verified 05/28/21 22:20) Nausea Hospital Summary - Hospital Course Hospital Course: Patient was admitted through ER after 2 weeks c/o cough. States she was seen at a walk in clinic and given an antibiotic but did not improve. - Vitals & Intake/Output Vital Signs: Vital Signs Temperature 97.7 F 06/02/21 16:00 Pulse Rate 90 06/02/21 16:00 Respiratory Rate 23 06/02/21 16:00 Blood Pressure 113/78 06/02/21 16:00 O2 Sat by Pulse Oximetry 99 06/02/21 16:00 Intake & Output: Intake & Output 05/31/21 06/01/21 06/02/21 06/03/21 11:59 11:59 11:59 11:59 Intake Total 2085 1180 800 480 Output Total 400 1150 300 Balance 1685 30 800 180 Weight 81.4 kg - Lab Result Diagrams: 06/02/21 06:15 06/02/21 06:15 Lab Results-Last 24 Hrs: Lab Results-Last 24 Hours 06/02/21 06/02/21 Range/Units 06:15 06:15 WBC 14.7 H (4.0-10.5) K/mm3 RBC 3.47 L (4.1-5.4) M/mm3 Hgb 10.4 L (12.0-16.0) gm/dl Hct 31.7 L (35-47) % MCV 91.4 (78-100) fl MCH 30.0 (26-32) pg MCHC 32.8 (32-36) g/dl RDW 14.1 H (11.5-14.0) % Plt Count 329 D (150-450) K/mm3 MPV 9.0 (7.5-11.0) fl Segmented Neutrophils 44 (36.0-66.0) % Lymphocytes (Manual) 43 (24-44) % Monocytes (Manual) 12 (0.0-12.0) % Eosinophils (Manual) 1 (0.00-3.0) % Hypochromia 1+ Platelet Estimate NORMAL (NORMAL) RBC Morphology ABNORMAL Polychromasia 1+ Poikilocytosis 1+ Anisocytosis 1+ Sodium 141 (137-145) mmol/L Potassium 3.2 L (3.5-5.1) mmol/L Chloride 108 H (98-107) mmol/L Carbon Dioxide 18 L (22-30) mmol/L Anion Gap 17.7 H (5-15) MEQ/L BUN 4 L (7-17) mg/dL Creatinine 0.63 (0.52-1.04) mg/dL Estimated GFR > 60.0 ML/MIN Glucose 81 (74-106) mg/dL Calcium 7.7 L (8.4-10.2) mg/dL Micro Results-Entire Visit: Microbiology 05/28/21 23:05 Blood Culture Gram Stain - Final Blood Not Reportable Blood Culture - Final NO GROWTH 05/28/21 23:25 Blood Culture Gram Stain - Final Blood Not Reportable Blood Culture - Final NO GROWTH 05/28/21 23:21 Urine Culture - Final Clean Catch Midstream MIXED ANGELIQUE; 3 OR MORE TYPES. NO PREDOMINANT ORGANISM. NO FURTHER WORKUP. PLEASE RESUBMIT IF CLINICALLY INDICATED. - Radiology Exams Ordered Rad Exams-Entire Visit: Radiology Procedures Category Date Time Status CHEST 1 VIEW (PORTABLE) Routine Exams 06/01/21 07:00 Completed - Procedures and Test Procedures and Tests throughout Hospitalization: Therapy Orders & Screens 05/28/21 23:22 Respiratory Therapy Assessment DAILY Comment: 05/29/21 05:38 Oxygen Nasal Cannula 2 lpm Comment: Diagnosis: Multifocal pneumonia 05/30/21 19:00 Incentive Spirometry TID Comment: Diagnosis: Pneumonia 05/30/21 19:50 Flutter Therapy UD Comment: Diagnosis: Pneumonia - Discharge Disposition: Home, Self-Care Condition: Stable Prescriptions: New Cefuroxime Axetil 500 mg [Ceftin 500 mg] 500 mg PO BID #10 tablet Continue Bupropion HCl [Wellbutrin Xl] 1 tab PO DAILY hydrOXYzine pamoate [Vistaril] 50 mg PO BID PRN PRN PRN Reason: anxiety risperiDONE [Risperidone] 3 mg PO HS Trazodone HCl 150 mg [Desyrel 150 MG] 150 mg PO HS Tizanidine HCl 1 ea TID Pramipexole Di-HCl 0.5 mg [Mirapex 0.5 MG Tablet] 1 ea PO DAILY Levothyroxine Sodium 75 Mcg [Synthroid 75 Mcg] 1 ea DAILY Gabapentin Enacarbil [Horizant] 1 ea BID Albuterol 8 gm Mdi Hfa [Ventolin Hfa MDI] 90 mcg IH Q4H PRN #1 inh PRN Reason: Shortness Of Breath Additional Instructions: You will need a follow up Chest Xray in one month. Dr Richter will order for you. Follow up with: PENNY SILVA [Primary Care Provider] - 06/11/21 2:15 pm
== END 2021-06-02 18:10 | disposition home or self-care (01) | DRG 194 ==
LOC: ED 22:18 → MED SURG 05-29 04:48 → OBSVTOIN 05-30 08:04
PROVIDERS: ADMIT Family Medicine; ATTEND Family Medicine
DX: J18.9 Pneumonia, unspecified organism (principal); J45.21 Mild intermittent asthma with (acute) exacerbation; E87.1 Hypo-osmolality and hyponatremia; K50.90 Crohn's disease, unspecified, without complications; D72.829 Elevated white blood cell count, unspecified; R09.02 Hypoxemia; R73.9 Hyperglycemia, unspecified; M25.511 Pain in right shoulder; Z20.828 Contact with and (suspected) exposure to other viral communicable diseases; Z79.899 Other long term (current) drug therapy; Z72.0 Tobacco use
CPT/HCPCS: 0241U; 36000; 36410; 36415; 36600; 71045; 71260; 76942; 80048; 80053; 80202; 81001; 82375; 82803; 83605; 84703; 85025; 85379; 86689; 86803; 87040; 87086; 87340; 87389; 93005; 93041; 93268; 94640; 94667; 94668; 94760; 94762; 96374; 99285; J0456; J0696; J1650; J2270; J2405; J2930; J7609; A9270-GY; G0378; G0472; J3370

== ENCOUNTER 2021-06-11 14:36 | Observation (INO) | payer OTHER ==
[2021-06-11 15:24] LABS: Hematocrit 35.9 % (35-47); Hemoglobin 11.6 gm/dl (12.0-16.0); Mean Cell Volume 92.5 fl (78-100); Mean Corpuscular Hemoglobin 29.9 pg (26-32); Mean Corpuscular Hgb Concent. 32.3 g/dl (32-36); Mean Platelet Volume 8.9 fl (7.5-11.0); Platelet Count 406 K/mm3 (150-450); Red Blood Count 3.88 M/mm3 (4.1-5.4); Red Cell Distribution Width 14.1 % (11.5-14.0); White Blood Count 16.7 K/mm3 (4.0-10.5)
[2021-06-11 15:29] LABS: ALBUMIN 3.7 g/dL (3.5-5.0); ALKALINE PHOSPHATASE 111 U/L (38-126); ANION GAP 15.9 MEQ/L (5-15); BLOOD UREA NITROGEN 4 mg/dL (7-17); CHLORIDE 103 mmol/L (98-107); Calcium 9.2 mg/dL (8.4-10.2); Carbon Dioxide 27 mmol/L (22-30); Creatinine 1 0.95 mg/dL (0.52-1.04); EST GLOMERULAR FILTRATION RATE > 60.0 ML/MIN; ETHYL ALCOHOL < 10 mg/dL (0-10); Glucose 76 mg/dL (74-106); MAGNESIUM 1.9 mg/dL (1.6-2.3); Potassium 3.1 mmol/L (3.5-5.1); SGOT/AST 21 U/L (14-36); SGPT/ALT 18 U/L (0-35); SODIUM 143 mmol/L (137-145); Total Protein 7.3 g/dL (6.3-8.2)
[2021-06-11 15:32] LABS: Appearance CLOUDY (CLEAR); Bilirubin NEGATIVE (NEGATIVE); Blood NEGATIVE Ery/ul (0-5); Glucose NEGATIVE (NEGATIVE); Hyaline Casts 0-2 /LPF (0-2); Ketones NEGATIVE (NEGATIVE); Leukocyte Esterase NEGATIVE (NEGATIVE); Mucus SLIGHT /HPF (NEGATIVE); Nitrite NEGATIVE (NEGATIVE); Protein,Urine Dip 30 (Negative); Specific Gravity 1.015 (1.005-1.025); Urobilinogen NEGATIVE mg/dL (0-1)
[2021-06-11 15:34] LABS: Amphetamine,Urine NEGATIVE (NEGATIVE); Barbiturate,Urine NEGATIVE (NEGATIVE); Benzodiazepine,Urine NEGATIVE (NEGATIVE); Cocaine,Urine NEGATIVE (NEGATIVE); Methadone,Urine NEGATIVE (NEGATIVE); Opiate,Urine POSITIVE (NEGATIVE); PCP,Urine POSITIVE (NEGATIVE); THC,Urine NEGATIVE (NEGATIVE)
[2021-06-11 16:00] LABS: Lymphocytes 22 % (24-44); Monocyte 4 % (0.0-12.0); Neutrophils 74 % (36.0-66.0); Total Cells Counted 100
[2021-06-11] MEDS ORDERED: Zofran 4 MG/2 ML VIAL IV ONE (16:12)
[2021-06-11] MEDS ORDERED: Ativan 2 MG/1 ML VIAL IV STA (16:14)
[2021-06-11] MEDS ORDERED: Zofran 4 MG/2 ML VIAL ONE (16:15)
[2021-06-11] MEDS ORDERED: Ativan 2 MG/1 ML VIAL ONE (16:16)
--- NOTE | 2021-06-11 16:19 | XRAY ---
Indication: Seizure. Multiple contiguous axial images obtained through the head without contrast. Comparison: April 29, 2021. Normal appearing brain parenchyma, ventricles, and bony calvarium. Small fluid leveling left maxillary sinus. Remaining visualized nasal sinuses and mastoid air cells are clear. Impression: Left axillary sinus disease. Remaining CT head without contrast exam is again normal.
--- NOTE | 2021-06-11 16:29 | ERPHSYRPT ---
- History of Present Illness Time Seen by Provider: 06/11/21 14:45 Source: patient Exam Limitations: no limitations Patient Subjective Stated Complaint: "I think I had a seizure." Triage Nursing Assessment: 25 year old female dale in by EMS with reported seizure at home. Seizure was witnessed by the connie who described the seizure as full body convulsions. Fiance reported seizure lasting 10 - 15 minutes. The patient was on the ground for an estimated 30 minutes. Patient presented postictal. Alert et oriented x3 with some intermittent confusion. Head atraumatic normocephalic. Pupils 3mm billateral with brisk reaction. Oral mucosa pink/moist without ulcerations/lessions. No noted blood, vomitus, or broken teeth. neck supple. Symmetrical chest expansion. Heart tones S1/S2 RRR without extra sounds. Lungs vesicular with adequate airflow. Peripheral pulses +3 bilateral. Physician History: Patient is a 35-year-old female presents to our ED via EMS for evaluation of a seizure. Patient has had one seizure in the past. But this patient's second seizure. Seizure was witnessed by mamta who states it lasted approximately 10 to 15 minutes. Seizure was described as a full body shaking episode. Patient arrived postictal. Patient denies pain. No trauma. No chest pain. No nausea or vomiting. No obvious incontinence. No tongue biting. Patient voices no other complaints concerns this time. Timing/Duration: today Severity: moderate Modifying Factors: Improves With: nothing Associated Symptoms: denies symptoms Allergies/Adverse Reactions: adhesive tape Allergy (Intermediate, Verified 06/11/21 14:38) Blisters [place] Allergy (Verified 06/11/21 14:38) paroxetine HCl [From Paxil] Adverse Reaction (Verified 06/11/21 14:38) Nausea Home Medications: Bupropion HCl [Wellbutrin Xl] 1 tab PO DAILY 01/29/19 [History] hydrOXYzine pamoate [Vistaril] 50 mg PO BID PRN PRN 01/29/19 [History] Trazodone HCl 150 mg [Desyrel 150 MG] 150 mg PO HS 03/23/19 [History] risperiDONE [Risperidone] 3 mg PO HS 03/23/19 [History] Gabapentin Enacarbil [Horizant] 1 ea BID 03/19/21 [History] Levothyroxine Sodium 75 Mcg [Synthroid 75 Mcg] 1 ea DAILY 03/19/21 [History] Pramipexole Di-HCl 0.5 mg [Mirapex 0.5 MG Tablet] 1 ea PO DAILY 03/19/21 [History] Tizanidine HCl 1 ea TID 03/19/21 [History] Hx Tetanus, Diphtheria Vaccination/Date Given: Yes Hx Influenza Vaccination/Date Given: No Hx Pneumococcal Vaccination/Date Given: No Travel Risk - International Travel Have you traveled outside of the country in past 3 weeks: No - Coronavirus Screening Are you exhibiting any of the following symptoms?: No Close contact with a COVID-19 positive Pt in past 14-21 Days: No - Vaccine Status Have you recieved a Covid-19 vaccination: Yes 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: [employer] - Vaccination Dates Date of 2cond Vaccination (if applicable): 11/2020 - Review of Systems Constitutional: No Symptoms, No Fever, No Chills Eyes: No Symptoms Ears, Nose, & Throat: No Symptoms Respiratory: No Symptoms, No Cough, No Dyspnea Cardiac: No Symptoms, No Chest Pain, No Edema, No Syncope Abdominal/Gastrointestinal: No Symptoms, No Abdominal Pain, No Nausea, No Vomiting, No Diarrhea Genitourinary Symptoms: No Symptoms, No Dysuria Musculoskeletal: No Symptoms, No Back Pain, No Neck Pain Skin: No Symptoms, No Rash Neurological: No Symptoms, No Dizziness, No Focal Weakness, No Sensory Changes Psychological: No Symptoms Endocrine: No Symptoms Hematologic/Lymphatic: No Symptoms Immunological/Allergic: No Symptoms All Other Systems: Reviewed and Negative - Past Medical History Pertinent Past Medical History: Yes Neurological History: Migraines, Seizures ENT History: No Pertinent History Cardiac History: No Pertinent History Respiratory History: Asthma Endocrine Medical History: No Pertinent History Musculoskeletal History: No Pertinent History GI Medical History: Irritable Bowel, Crohns Disease, GERD, Gallbladder Disease History: No Pertinent History Psycho-Social History: Depression, Anxiety Female Reproductive Disorders: Other Other Medical History: Reports Crohns; cysts on ovaries - Past Surgical History Past Surgical History: Yes Neuro Surgical History: No Pertinent History Cardiac: No Pertinent History Respiratory: No Pertinent History Gastrointestinal: Cholecystectomy Genitourinary: Other Musculoskeletal: Orthopedic Surgery Female Surgical History: Section Other Surgical History: right rotator cuff repair. Ear tubes bilat,ovarian cyst 2016. ovarian cyst removal jun 2016. colonscopy jun 2016 - Social History Smoking Status: Current every day smoker How long have you smoked: 2 years Exposure to second hand smoke: Yes Alcohol Use: None Drug Use: none Patient Lives Alone: No Significant Family History: no pertinent family hx - Female History Hx Now: No - Nursing Vital Signs Nursing Vital Signs: Initial Vital Signs Temperature 97.8 F 06/11/21 14:37 Pulse Rate 77 06/11/21 14:37 Respiratory Rate 18 06/11/21 14:37 Blood Pressure 121/83 06/11/21 14:37 O2 Sat by Pulse Oximetry 100 06/11/21 14:37 Pain Scale Pain Intensity 3 - Physical Exam General Appearance: no apparent distress, alert Eye Exam: PERRL/EOMI, eyes nml inspection Ears, Nose, Throat Exam: normal ENT inspection, TMs normal, pharynx normal, moist mucous membranes Neck Exam: normal inspection, non-tender, supple, full range of motion Respiratory Exam: normal breath sounds, lungs clear, airway intact, No respirato ry distress Cardiovascular Exam: regular rate/rhythm, normal heart sounds, normal peripheral pulses Gastrointestinal/Abdomen Exam: soft, normal bowel sounds, No tenderness, No mass Back Exam: normal inspection, normal range of motion, No CVA tenderness, No vertebral tenderness Extremity Exam: normal inspection, normal range of motion, pelvis stable Neurologic Exam: alert, oriented x 3, cooperative, normal mood/affect, nml cerebellar function, nml station & gait, sensation nml, No motor deficits Skin Exam: normal color, warm, dry, No rash Lymphatic Exam: No adenopathy SpO2 Interpretation: normal SpO2: 97 O2 Delivery: Room Air - Course Nursing assessment & vital signs reviewed: Yes EKG Interpreted by Me: RATE (75), Sinus Rhythm, NORMAL AXIS, NORMAL INTERVALS - CT Exams Head CT Interpretation: Tele-radiologist Report (Normal appearing brain parenchyma, ventricles and bony calvarium. Left maxillary sinus disease. Remaining CT head without contrast is again normal.) Ordered Tests: Active Orders 24 hr Category Date Time Status Bedrest with BRP/BSC ROUTINE Activity 06/11/21 18:17 Ordered Insole Doubler STAT Care 06/11/21 14:41 Active Code Status Order ROUTINE Care 06/11/21 18:16 Ordered EKG-ER Only STAT Care 06/11/21 14:40 Active IV Care Q6H Care 06/11/21 18:16 Ordered IV Insertion STAT Care 06/11/21 14:40 Active Neuro Checks Q4H Care 06/11/21 18:[address] in Observation ROUTINE Care 06/11/21 18:16 Ordered Pulse Oximetry (ED) STAT Care 06/11/21 14:40 Active Telemetry q6h Care 06/11/21 18:16 Ordered cath [Cath for Specimen-Straight] STAT Care 06/11/21 14:54 Active Tele-Health Consult ROUTINE Cons 06/11/21 16:39 Active Clear Liquid Diet 06/11/21 Breakfast Ordered HEAD WITHOUT CONTRAST [CT] Stat Exams 06/11/21 14:54 Completed CBC W DIFF AM.LAB Lab 06/12/21 04:00 Ordered CBC W DIFF Stat Lab 06/11/21 15:08 Completed CMP AM.LAB Lab 06/12/21 04:00 Ordered CMP Stat Lab 06/11/21 15:08 Completed CULTURE,URINE Stat Lab 06/11/21 14:53 Received ETHYL ALCOHOL Stat Lab 06/11/21 15:08 Completed HCG,QUALITATIVE URINE Stat Lab 06/11/21 14:53 Completed MAGNESIUM Stat Lab 06/11/21 15:08 Completed Manual Differential NC Stat Lab 06/11/21 15:08 Completed TROPONIN Q3H Lab 06/11/21 15:08 Completed TROPONIN Q3H Lab 06/11/21 17:45 Ordered TROPONIN Q3H Lab 06/11/21 20:45 Ordered TROPONIN Q3H Lab 06/11/21 23:45 Ordered TROPONIN Q3H Lab 06/12/21 02:45 Ordered UA W/RFX UR CULTURE Stat Lab 06/11/21 14:53 Completed Urine Triage Profile Stat Lab 06/11/21 14:53 Completed Pulse Oximetry CONTINUOUS RT 06/11/21 18:17 Ordered Medication Summary Discontinued Medications Generic Name Dose Route Start Last Admin Trade Name Freq PRN Reason Stop Dose Admin Lorazepam 0.5 mg 06/11/21 16:14 06/11/21 16:18 Lorazepam 2 Mg/1 Ml 2 Mg Vial IV 06/11/21 16:15 0.5 mg ONCE STA Administration Lorazepam Confirm 06/11/21 16:16 Lorazepam 2 Mg/1 Ml 2 Mg Vial Administered 06/11/21 16:17 Dose 2 mg .ROUTE .STK-MED ONE Ondansetron HCl 4 mg 06/11/21 16:12 06/11/21 16:18 Ondansetron Hcl 4 Mg/2 Ml Vial IV 06/11/21 16:13 4 mg STAT ONE Administration Ondansetron HCl Confirm 06/11/21 16:15 Ondansetron Hcl 4 Mg/2 Ml Vial Administered 06/11/21 16:16 Dose 4 mg .ROUTE .STK-MED ONE Lab/Rad Data: Laboratory Result Diagrams 06/11/21 15:08 06/11/21 15:08 Laboratory Results 06/11/21 06/11/21 06/11/21 Range/Units 16:39 15:08 15:08 WBC (4.0-10.5) K/mm3 RBC (4.1-5.4) M/mm3 Hgb (12.0-16.0) gm/dl Hct (35-47) % MCV (78-100) fl MCH (26-32) pg MCHC (32-36) g/dl RDW (11.5-14.0) % Plt Count (150-450) K/mm3 MPV (7.5-11.0) fl Segmented Neutrophils (36.0-66.0) % Lymphocytes (Manual) (24-44) % Monocytes (Manual) (0.0-12.0) % Sodium 143 (137-145) mmol/L Potassium 3.1 L (3.5-5.1) mmol/L Chloride 103 (98-107) mmol/L Carbon Dioxide 27 (22-30) mmol/L Anion Gap 15.9 H (5-15) MEQ/L BUN 4 L (7-17) mg/dL Creatinine 0.95 (0.52-1.04) mg/dL Estimated GFR > 60.0 ML/MIN Glucose 76 (74-106) mg/dL Calcium 9.2 (8.4-10.2) mg/dL Magnesium 1.9 (1.6-2.3) mg/dL Total Bilirubin 0.60 (0.2-1.3) mg/dL AST 21 (14-36) U/L ALT 18 (0-35) U/L Alkaline Phosphatase 111 (38-126) U/L Troponin I < 0.012 (0.000-0.034) ng/mL Serum Total Protein 7.3 (6.3-8.2) g/dL Albumin 3.7 (3.5-5.0) g/dL Urine Color (YELLOW) Urine Appearance (CLEAR) Urine pH (5-6) Ur Specific [place] (1.005-1.025) Urine Protein (Negative) Urine Ketones (NEGATIVE) Urine Blood (0-5) [place]/ul Urine Nitrite (NEGATIVE) Urine Bilirubin (NEGATIVE) Urine Urobilinogen (0-1) mg/dL Ur Leukocyte Esterase (NEGATIVE) Urine WBC (Auto) (0-5) /HPF Urine RBC (Auto) (0-2) /HPF U Hyaline Cast (Auto) (0-2) /LPF U Epithel Cells (Auto) (FEW) /HPF Urine Bacteria (Auto) (NEGATIVE) /HPF Urine Mucus (Auto) (NEGATIVE) /HPF Urine Culture Reflexed (NO) Urine Glucose (NEGATIVE) mg/dL Urine HCG, Qual (Negative) Urine Opiates Level (NEGATIVE) Ur Methadone (NEGATIVE) Urine Barbiturates (NEGATIVE) Ur Phencyclidine (PCP) (NEGATIVE) Urine Amphetamine (NEGATIVE) U Benzodiazepine Level (NEGATIVE) Urine Cocaine (NEGATIVE) Urine Marijuana (THC) (NEGATIVE) Ethyl Alcohol < 10 (0-10) mg/dL Influenza Type A Ag NEGATIVE (NEGATIVE) Influenza Type B Ag NEGATIVE (NEGATIVE) RSV (PCR) NEGATIVE (Negative) SARS-CoV-2 (PCR) NEGATIVE (NEGATIVE) 06/11/21 06/11/21 06/11/21 Range/Units 15:08 14:53 14:53 WBC 16.7 H (4.0-10.5) K/mm3 RBC 3.88 L (4.1-5.4) M/mm3 Hgb 11.6 L (12.0-16.0) gm/dl Hct 35.9 (35-47) % MCV 92.5 (78-100) fl MCH 29.9 (26-32) pg MCHC 32.3 (32-36) g/dl RDW 14.1 H (11.5-14.0) % Plt Count 406 (150-450) K/mm3 MPV 8.9 (7.5-11.0) fl Segmented Neutrophils 74 H (36.0-66.0) % Lymphocytes (Manual) 22 L (24-44) % Monocytes (Manual) 4 (0.0-12.0) % Sodium (137-145) mmol/L Potassium (3.5-5.1) mmol/L Chloride (98-107) mmol/L Carbon Dioxide (22-30) mmol/L Anion Gap (5-15) MEQ/L BUN (7-17) mg/dL Creatinine (0.52-1.04) mg/dL Estimated GFR ML/MIN Glucose (74-106) mg/dL Calcium (8.4-10.2) mg/dL Magnesium (1.6-2.3) mg/dL Total Bilirubin (0.2-1.3) mg/dL AST (14-36) U/L ALT (0-35) U/L Alkaline Phosphatase (38-126) U/L Troponin I (0.000-0.034) ng/mL Serum Total Protein (6.3-8.2) g/dL Albumin (3.5-5.0) g/dL Urine Color (YELLOW) Urine Appearance (CLEAR) Urine pH (5-6) Ur Specific [place] (1.005-1.025) Urine Protein (Negative) Urine Ketones (NEGATIVE) Urine Blood (0-5) [place]/ul Urine Nitrite (NEGATIVE) Urine Bilirubin (NEGATIVE) Urine Urobilinogen (0-1) mg/dL Ur Leukocyte Esterase (NEGATIVE) Urine WBC (Auto) (0-5) /HPF Urine RBC (Auto) (0-2) /HPF U Hyaline Cast (Auto) (0-2) /LPF U Epithel Cells (Auto) (FEW) /HPF Urine Bacteria (Auto) (NEGATIVE) /HPF Urine Mucus (Auto) (NEGATIVE) /HPF Urine Culture Reflexed (NO) Urine Glucose (NEGATIVE) mg/dL Urine HCG, Qual NEGATIVE (Negative) Urine Opiates Level POSITIVE (NEGATIVE) Ur Methadone NEGATIVE (NEGATIVE) Urine Barbiturates NEGATIVE (NEGATIVE) Ur Phencyclidine (PCP) POSITIVE (NEGATIVE) Urine Amphetamine NEGATIVE (NEGATIVE) U Benzodiazepine Level NEGATIVE (NEGATIVE) Urine Cocaine NEGATIVE (NEGATIVE) Urine Marijuana (THC) NEGATIVE (NEGATIVE) Ethyl Alcohol (0-10) mg/dL Influenza Type A Ag (NEGATIVE) Influenza Type B Ag (NEGATIVE) RSV (PCR) (Negative) SARS-CoV-2 (PCR) (NEGATIVE) 06/11/21 Range/Units 14:53 WBC (4.0-10.5) K/mm3 RBC (4.1-5.4) M/mm3 Hgb (12.0-16.0) gm/dl Hct (35-47) % MCV (78-100) fl MCH (26-32) pg MCHC (32-36) g/dl RDW (11.5-14.0) % Plt Count (150-450) K/mm3 MPV (7.5-11.0) fl Segmented Neutrophils (36.0-66.0) % Lymphocytes (Manual) (24-44) % Monocytes (Manual) (0.0-12.0) % Sodium (137-145) mmol/L Potassium (3.5-5.1) mmol/L Chloride (98-107) mmol/L Carbon Dioxide (22-30) mmol/L Anion Gap (5-15) MEQ/L BUN (7-17) mg/dL Creatinine (0.52-1.04) mg/dL Estimated GFR ML/MIN Glucose (74-106) mg/dL Calcium (8.4-10.2) mg/dL Magnesium (1.6-2.3) mg/dL Total Bilirubin (0.2-1.3) mg/dL AST (14-36) U/L ALT (0-35) U/L Alkaline Phosphatase (38-126) U/L Troponin I (0.000-0.034) ng/mL Serum Total Protein (6.3-8.2) g/dL Albumin (3.5-5.0) g/dL Urine Color YELLOW (YELLOW) Urine Appearance CLOUDY (CLEAR) Urine pH 6.0 (5-6) Ur Specific [place] 1.015 (1.005-1.025) Urine Protein 30 (Negative) Urine Ketones NEGATIVE (NEGATIVE) Urine Blood NEGATIVE (0-5) [place]/ul Urine Nitrite NEGATIVE (NEGATIVE) Urine Bilirubin NEGATIVE (NEGATIVE) Urine Urobilinogen NEGATIVE (0-1) mg/dL Ur Leukocyte Esterase NEGATIVE (NEGATIVE) Urine WBC (Auto) 3-5 (0-5) /HPF Urine RBC (Auto) NONE (0-2) /HPF U Hyaline Cast (Auto) 0-2 (0-2) /LPF U Epithel Cells (Auto) NONE (FEW) /HPF Urine Bacteria (Auto) NONE (NEGATIVE) /HPF Urine Mucus (Auto) SLIGHT (NEGATIVE) /HPF Urine Culture Reflexed YES (NO) Urine Glucose NEGATIVE (NEGATIVE) mg/dL Urine HCG, Qual (Negative) Urine Opiates Level (NEGATIVE) Ur Methadone (NEGATIVE) Urine Barbiturates (NEGATIVE) Ur Phencyclidine (PCP) (NEGATIVE) Urine Amphetamine (NEGATIVE) U Benzodiazepine Level (NEGATIVE) Urine Cocaine (NEGATIVE) Urine Marijuana (THC) (NEGATIVE) Ethyl Alcohol (0-10) mg/dL Influenza Type A Ag (NEGATIVE) Influenza Type B Ag (NEGATIVE) RSV (PCR) (Negative) SARS-CoV-2 (PCR) (NEGATIVE) - Progress Progress: improved Progress Note: Per neurologist patient should eliminate tramadol and decrease dose of Wellbutrin as these 2 may be considered causes of seizures. Neurologist recommends admission EEG and initiate antiepileptics if EEG abnormal. Covid test negative. Plan of care discussed with patient. She agrees to [facility] for evaluation and treatment. Portions of this note were created with voice recognition technology. There may be grammatical, spelling, punctuation or sound alike errors 06/11/21 17:[address] Richter who accepts admission to observation. 06/11/21 18:19 Counseled pt/family regarding: lab results, diagnosis, need for follow-up, rad results - Departure Departure Disposition: Observation Clinical Impression: Left maxillary sinus disease, Seizure Condition: Stable Critical Care Time: No Referrals: DOCTOR,NO FAMILY [NON-STAFF PHY W/O PRIVILEGES] - Follow up/PCP as directed
[2021-06-11 17:22] LABS: INFLUENZA A NEGATIVE (NEGATIVE); INFLUENZA B NEGATIVE (NEGATIVE); RESPIRATORY SYNCTIAL VIRUS NEGATIVE (Negative); SARS-CoV-2 Xpert Express NEGATIVE (NEGATIVE)
[2021-06-11] MEDS ORDERED: Zofran 4 MG/2 ML VIAL IV PRN ×2 (18:16→18:40)
[2021-06-11] MEDS ORDERED: MORPHINE SULFATE 2 MG INJ IV PRN (18:16)
[2021-06-11] MEDS ORDERED: Sodium Chloride 0.9% 1000 ML 1,000 ML IV SCH (18:30)
[2021-06-11] MEDS: Sodium Chloride 0.9% 1000 ML 1,000 ML IV SCH (20:19)
[2021-06-11] MEDS: MORPHINE SULFATE 2 MG INJ IV PRN (20:37)
[2021-06-11] MEDS ORDERED: NORCO 5/325 MG PO PRN (21:20)
[2021-06-11] MEDS ORDERED: Ativan 2 MG/1 ML VIAL IV PRN (21:20)
[2021-06-11] MEDS ORDERED: Wellbutrin SR 150 MG ONE (22:12)
[2021-06-11] MEDS ORDERED: Mirapex 0.5 MG Tablet ONE (22:12)
[2021-06-11] MEDS ORDERED: BUSPAR 5 MG ONE (22:13)
[2021-06-11] MEDS ORDERED: Risperdal 1 MG ONE (22:13)
[2021-06-11] MEDS ORDERED: Zanaflex 4 MG ONE (22:13)
[2021-06-11] MEDS ORDERED: ATARAX 25 MG ONE (22:13)
[2021-06-11] MEDS ORDERED: Protonix 40MG Tablet ONE (22:13)
[2021-06-11] MEDS ORDERED: Pepcid 20 MG ONE (22:13)
[2021-06-11] MEDS: Mirapex 0.5 MG Tablet PO SCH (22:18)
[2021-06-11] MEDS: Protonix 40MG Tablet PO SCH (22:18)
[2021-06-11] MEDS: Pepcid 20 MG PO SCH (22:18)
[2021-06-11] MEDS: ATARAX 25 MG PO SCH (22:18)
[2021-06-11] MEDS: BUSPAR 5 MG PO SCH (22:18)
[2021-06-11] MEDS: Risperdal 1 MG PO SCH (22:18)
[2021-06-11] MEDS: Wellbutrin XL 150 MG PO SCH (22:26)
[2021-06-12] MEDS ORDERED: MORPHINE SULFATE 2 MG INJ ONE ×2 (00:31→04:38)
[2021-06-12] MEDS: MORPHINE SULFATE 2 MG INJ IV PRN ×6 (00:40→21:08)
[2021-06-12] MEDS: Sodium Chloride 0.9% 1000 ML 1,000 ML IV SCH ×2 (06:19→15:59)
[2021-06-12] MEDS ORDERED: Sodium Chloride 0.9% 1000 ML 1,000 ML ONE (06:19)
[2021-06-12 06:54] LABS: Absolute Neutrophil Ct (ANC) 6.87 (1.4-6.9); Basophil (Absolute #) 0.05 (0-0.4); Eosinophil % 1.1 % (0.00-5.0); Eosinophil (Absolute #) 0.13 (0-0.5); Hematocrit 30.1 % (35-47); Hemoglobin 9.7 gm/dl (12.0-16.0); Lymphocyte (Absolute #) 3.25 (1.0-4.6); Lymphocytes % 28.6 % (24.0-44.0); Mean Cell Volume 93.5 fl (78-100); Mean Corpuscular Hemoglobin 30.1 pg (26-32); Mean Corpuscular Hgb Concent. 32.2 g/dl (32-36); Mean Platelet Volume 8.7 fl (7.5-11.0); Monocyte (Absolute #) 1.07 (0.0-1.3); Monocytes % 9.4 % (0.0-12.0); Neutrophil % 60.5 % (36.0-66.0); Platelet Count 357 K/mm3 (150-450); Red Blood Count 3.22 M/mm3 (4.1-5.4); Red Cell Distribution Width 14.2 % (11.5-14.0); White Blood Count 11.4 K/mm3 (4.0-10.5)
[2021-06-12 07:07] LABS: ALBUMIN 3.1 g/dL (3.5-5.0); ALKALINE PHOSPHATASE 95 U/L (38-126); ANION GAP 13.2 MEQ/L (5-15); BLOOD UREA NITROGEN 4 mg/dL (7-17); CHLORIDE 107 mmol/L (98-107); Calcium 8.6 mg/dL (8.4-10.2); Carbon Dioxide 24 mmol/L (22-30); Creatinine 1 0.84 mg/dL (0.52-1.04); EST GLOMERULAR FILTRATION RATE > 60.0 ML/MIN; Glucose 59 mg/dL (74-106); SGOT/AST 19 U/L (14-36); SGPT/ALT 15 U/L (0-35); SODIUM 141 mmol/L (137-145); Total Protein 6.7 g/dL (6.3-8.2)
[2021-06-12] MEDS ORDERED: Ventolin Hfa MDI IH PRN (07:17)
[2021-06-12] MEDS ORDERED: VENTOLIN COMMON CANISTER IH PRN (07:19)
[2021-06-12] MEDS ORDERED: MEDICATION INTERVENTION MC SCH (07:30)
[2021-06-12 08:07] LABS: Potassium 2.9 mmol/L (3.5-5.1)
[2021-06-12] MEDS: BUSPAR 5 MG PO SCH ×2 (08:58→21:09)
[2021-06-12] MEDS: NEURONTIN 300 MG PO SCH ×2 (08:58→21:08)
[2021-06-12] MEDS: SYNTHROID 75 MCG PO SCH (08:58)
[2021-06-12] MEDS: Zanaflex 4 MG PO PRN (08:58)
[2021-06-12] MEDS ORDERED: K-LYTE 25 MEQ PO ONE (09:06)
--- NOTE | 2021-06-12 09:11 | PCM.HP ---
History of Present Illness - Chief Complaint Chief Complaint: SEUIZURE History of Present Illness: is a 25 year old female with multiple medical issues including Crohn's disease, depression, and chronic pain (sees pain management) who was admitted through ER wiht a seizure. Apparently she had a first seizure early this year/late last year. She doesn't remember any of th eseizure, but per ER note it was witnessed by her fiance and was full body convulsions lasting 10-15 min, with a post-ictal period that was observed in the ER. Teleneurology consult advised not starting an anti-epileptic unless her EEG (being done currently) is abnormal. Pt states that she did not sleep for 2 days prior to her seizure. Also, she was on a large dose of tramadol and had been started on wellbutrin (teleneurology attributes the seizure to possible lowering of seizure threshold by her med ications and advised stopping tramadol and decreasing wellbutrin). Med adjustments have been made here. Pt has no FHx seizures. This morning pt is c/o back and shoulder pain, she thinks possibly related to her fall. - Review of Systems Constitutional: Fatigue Musculoskeletal: Arthralgias, Back Pain Neurological: Seizure Psychological: No Drug Abuse (UDS + for PCP but pt denies any drug use) All Other Systems: Reviewed and Negative Medications & Allergies Home Medications: Home Medication List Bupropion HCl [Wellbutrin Xl] 300 mg PO HS 01/29/19 [History Confirmed 06/11/21] hydrOXYzine pamoate [Vistaril] 50 mg PO HS 01/29/19 [History Confirmed 06/11/21] risperiDONE [Risperidone] 3 mg PO HS 03/23/19 [History Confirmed 06/11/21] Gabapentin Enacarbil [Horizant] 600 mg PO BID 03/19/21 [History Confirmed ] Levothyroxine Sodium 75 Mcg [Synthroid 75 Mcg] 75 mcg PO DAILY 03/19/21 [History Confirmed 06/11/21] Pramipexole Di-HCl 0.5 mg [Mirapex 0.5 MG Tablet] 0.5 mg PO HS 03/19/21 [History Confirmed 06/11/21] Tizanidine HCl 4 mg PO TIDPRN PRN 03/19/21 [History Confirmed 06/11/21] Albuterol 8 gm Mdi Hfa [Ventolin Hfa MDI] 90 mcg IH Q4H PRN #1 inh 06/02/21 [Rx Confirmed 06/11/21] Buspirone HCl 5 mg [Buspar 5 mg] 10 mg PO BID 06/11/21 [History Confirmed 06/11/21] Famotidine 20 mg [Pepcid 20 MG] 20 mg PO HS 06/11/21 [History Confirmed 06/11/21] PANTOPRAZOLE 40 mg Tablet [Protonix 40MG Tablet] 40 mg PO QPM 06/11/21 [History Confirmed 06/11/21] Propranolol HCl [Propranolol HCl ER] 160 mg PO DAILY 06/11/21 [History Confirmed 06/11/21] Tramadol HCl 50 mg [Ultram 50 mg] 50 mg PO Q4-6HPRN PRN 06/11/21 [History Confirmed 06/11/21] Tramadol HCl [Tramadol HCl ER] 300 mg PO DAILY 06/11/21 [History Confirmed 06/11/21] Zolpidem Tartrate 5 mg [Ambien 5 MG Tablet] 5 mg PO HS 06/11/21 [History Confirmed 06/11/21] Allergies/Adverse Reactions: Allergies Allergy/AdvReac Type Severity Reaction Status Date / Time adhesive tape Allergy Intermediate Blisters Verified 06/11/21 14:38 [place] Allergy Verified 06/11/21 14:38 paroxetine HCl [From Paxil] AdvReac Nausea Verified 06/11/21 14:38 - Past Medical History Past Medical History: Yes Neurological History: Migraines, Seizures ENT History: No Pertinent History Cardiac History: No Pertinent History Respiratory History: Asthma Endocrine Medical History: No Pertinent History Musculoskelatal History: No Pertinent History GI Medical History: Irritable Bowel, Crohns Disease, GERD, Gallbladder Disease History: No Pertinent History Pyscho-Social History: Depression, Anxiety Reproductive Disorders: Other Comment: Reports Crohns; cysts on ovaries - Female History Hx Last Menstrual Period: UNKNOWN Are you now?: No - Past Surgical History Past Surgical History: Yes Neuro Surgical History: No Pertinent History Cardiac History: No Pertinent History Respiratory Surgery: No Pertinent History GI Surgical History: Cholecystectomy Genitourinary Surgical Hx: Other Musculskeletal Surgical Hx: Orthopedic Surgery Female Surgical History: Section Other Surgical History: right rotator cuff repair. Ear tubes bilat,ovarian cyst 2017. ovarian cyst removal jun 2016. colonscopy jun 2016 - Social History Smoking Status: Current every day smoker How long have you smoked: 4 YEARS Exposure to second hand smoke: Yes Alcohol: Rarely Drug Use: none Significant Family History: no pertinent family hx - Physical Exam Vital Signs: Vital Signs - 24 hr Temp Pulse Resp BP Pulse Ox 06/12/21 07:43 97.8 F 84 19 110/63 97 06/12/21 04:00 98.1 F 83 18 104/64 94 L 06/12/21 00:00 97.9 F 83 14 108/68 97 06/11/21 20:19 97.8 F 65 12 116/74 99 06/11/21 20:00 97.8 F 65 12 116/74 99 06/11/21 18:55 97.6 F 77 16 122/79 98 06/11/21 18:19 97 06/11/21 17:00 18 120/83 99 06/11/21 16:00 80 18 105/80 97 06/11/21 14:53 97 06/11/21 14:37 97.8 F 77 18 121/83 100 General Appearance: no apparent distress, alert Neurologic Exam: oriented x 3, cooperative, abnormal chief service observer II-XII (CN VIII decreased bilat, L>R) Eye Exam: eyes nml inspection Ears, Nose, Throat Exam: moist mucous membranes Neck Exam: normal inspection, non-tender, supple, No lymphadenopathy Respiratory Exam: normal breath sounds, lungs clear, No crackles/rales, No rhonchi, No wheezing Cardiovascular Exam: regular rate/rhythm, normal heart sounds, No murmur Gastrointestinal/Abdomen Exam: soft, normal bowel sounds, No tenderness, No distention, No mass, No guarding, No rebound Back Exam: normal inspection, No CVA tenderness, No rash Extremity Exam: normal inspection, No pedal edema, No swelling Skin Exam: normal color, warm, dry, No rash Results - Labs Lab/Micro Results: Lab Results-Last 24 Hours 02/07/22 02/07/22 02/07/22 Range/Units 14:53 14:53 14:53 WBC (4.0-10.5) K/mm3 RBC (4.1-5.4) M/mm3 Hgb (12.0-16.0) gm/dl Hct (35-47) % MCV (78-100) fl MCH (26-32) pg MCHC (32-36) g/dl RDW (11.5-14.0) % Plt Count (150-450) K/mm3 MPV (7.5-11.0) fl Gran % (36.0-66.0) % Eos # (Auto) (0-0.5) Absolute Lymphs (auto) (1.0-4.6) Absolute Monos (auto) (0.0-1.3) Lymphocytes % (24.0-44.0) % Monocytes % (0.0-12.0) % Eosinophils % (0.00-5.0) % Basophils % (0.0-0.4) % Absolute Granulocytes (1.4-6.9) Segmented Neutrophils (36.0-66.0) % Lymphocytes (Manual) (24-44) % Monocytes (Manual) (0.0-12.0) % Basophils # (0-0.4) Sodium (137-145) mmol/L Potassium (3.5-5.1) mmol/L Chloride (98-107) mmol/L Carbon Dioxide (22-30) mmol/L Anion Gap (5-15) MEQ/L BUN (7-17) mg/dL Creatinine (0.52-1.04) mg/dL Estimated GFR ML/MIN Glucose (74-106) mg/dL Calcium (8.4-10.2) mg/dL Magnesium (1.6-2.3) mg/dL Total Bilirubin (0.2-1.3) mg/dL AST (14-36) U/L ALT (0-35) U/L Alkaline Phosphatase (38-126) U/L Troponin I (0.000-0.034) ng/mL Serum Total Protein (6.3-8.2) g/dL Albumin (3.5-5.0) g/dL Urine Color YELLOW (YELLOW) Urine Appearance CLOUDY (CLEAR) Urine pH 6.0 (5-6) Ur Specific [place] 1.015 (1.005-1.025) Urine Protein 30 (Negative) Urine Ketones NEGATIVE (NEGATIVE) Urine Blood NEGATIVE (0-5) [place]/ul Urine Nitrite NEGATIVE (NEGATIVE) Urine Bilirubin NEGATIVE (NEGATIVE) Urine Urobilinogen NEGATIVE (0-1) mg/dL Ur Leukocyte Esterase NEGATIVE (NEGATIVE) Urine WBC (Auto) 3-5 (0-5) /HPF Urine RBC (Auto) NONE (0-2) /HPF U Hyaline Cast (Auto) 0-2 (0-2) /LPF U Epithel Cells (Auto) NONE (FEW) /HPF Urine Bacteria (Auto) NONE (NEGATIVE) /HPF Urine Mucus (Auto) SLIGHT (NEGATIVE) /HPF Urine Culture Reflexed YES (NO) Urine Glucose NEGATIVE (NEGATIVE) mg/dL Urine HCG, Qual NEGATIVE (Negative) Urine Opiates Level POSITIVE (NEGATIVE) Ur Methadone NEGATIVE (NEGATIVE) Urine Barbiturates NEGATIVE (NEGATIVE) Ur Phencyclidine (PCP) POSITIVE (NEGATIVE) Urine Amphetamine NEGATIVE (NEGATIVE) U Benzodiazepine Level NEGATIVE (NEGATIVE) Urine Cocaine NEGATIVE (NEGATIVE) Urine Marijuana (THC) NEGATIVE (NEGATIVE) Ethyl Alcohol (0-10) mg/dL Influenza Type A Ag (NEGATIVE) Influenza Type B Ag (NEGATIVE) RSV (PCR) (Negative) SARS-CoV-2 (PCR) (NEGATIVE) 06/11/21 06/11/21 06/11/21 Range/Units 15:08 15:08 15:08 WBC 16.7 H (4.0-10.5) K/mm3 RBC 3.88 L (4.1-5.4) M/mm3 Hgb 11.6 L (12.0-16.0) gm/dl Hct 35.9 (35-47) % MCV 92.5 (78-100) fl MCH 29.9 (26-32) pg MCHC 32.3 (32-36) g/dl RDW 14.1 H (11.5-14.0) % Plt Count 406 (150-450) K/mm3 MPV 8.9 (7.5-11.0) fl Gran % (36.0-66.0) % Eos # (Auto) (0-0.5) Absolute Lymphs (auto) (1.0-4.6) Absolute Monos (auto) (0.0-1.3) Lymphocytes % (24.0-44.0) % Monocytes % (0.0-12.0) % Eosinophils % (0.00-5.0) % Basophils % (0.0-0.4) % Absolute Granulocytes (1.4-6.9) Segmented Neutrophils 74 H (36.0-66.0) % Lymphocytes (Manual) 22 L (24-44) % Monocytes (Manual) 4 (0.0-12.0) % Basophils # (0-0.4) Sodium 143 (137-145) mmol/L Potassium 3.1 L (3.5-5.1) mmol/L Chloride 103 (98-107) mmol/L Carbon Dioxide 27 (22-30) mmol/L Anion Gap 15.9 H (5-15) MEQ/L BUN 4 L (7-17) mg/dL Creatinine 0.95 (0.52-1.04) mg/dL Estimated GFR > 60.0 ML/MIN Glucose 76 (74-106) mg/dL Calcium 9.2 (8.4-10.2) mg/dL Magnesium 1.9 (1.6-2.3) mg/dL Total Bilirubin 0.60 (0.2-1.3) mg/dL AST 21 (14-36) U/L ALT 18 (0-35) U/L Alkaline Phosphatase 111 (38-126) U/L Troponin I < 0.012 (0.000-0.034) ng/mL Serum Total Protein 7.3 (6.3-8.2) g/dL Albumin 3.7 (3.5-5.0) g/dL Urine Color (YELLOW) Urine Appearance (CLEAR) Urine pH (5-6) Ur Specific [place] (1.005-1.025) Urine Protein (Negative) Urine Ketones (NEGATIVE) Urine Blood (0-5) [place]/ul Urine Nitrite (NEGATIVE) Urine Bilirubin (NEGATIVE) Urine Urobilinogen (0-1) mg/dL Ur Leukocyte Esterase (NEGATIVE) Urine WBC (Auto) (0-5) /HPF Urine RBC (Auto) (0-2) /HPF U Hyaline Cast (Auto) (0-2) /LPF U Epithel Cells (Auto) (FEW) /HPF Urine Bacteria (Auto) (NEGATIVE) /HPF Urine Mucus (Auto) (NEGATIVE) /HPF Urine Culture Reflexed (NO) Urine Glucose (NEGATIVE) mg/dL Urine HCG, Qual (Negative) Urine Opiates Level (NEGATIVE) Ur Methadone (NEGATIVE) Urine Barbiturates (NEGATIVE) Ur Phencyclidine (PCP) (NEGATIVE) Urine Amphetamine (NEGATIVE) U Benzodiazepine Level (NEGATIVE) Urine Cocaine (NEGATIVE) Urine Marijuana (THC) (NEGATIVE) Ethyl Alcohol < 10 (0-10) mg/dL Influenza Type A Ag (NEGATIVE) Influenza Type B Ag (NEGATIVE) RSV (PCR) (Negative) SARS-CoV-2 (PCR) (NEGATIVE) 06/11/21 06/11/21 06/12/21 Range/Units 16:39 21:50 06:35 WBC 11.4 H (4.0-10.5) K/mm3 RBC 3.22 L (4.1-5.4) M/mm3 Hgb 9.7 L (12.0-16.0) gm/dl Hct 30.1 L (35-47) % MCV 93.5 (78-100) fl MCH 30.1 (26-32) pg MCHC 32.2 (32-36) g/dl RDW 14.2 H (11.5-14.0) % Plt Count 357 (150-450) K/mm3 MPV 8.7 (7.5-11.0) fl Gran % 60.5 (36.0-66.0) % Eos # (Auto) 0.13 (0-0.5) Absolute Lymphs (auto) 3.25 (1.0-4.6) Absolute Monos (auto) 1.07 (0.0-1.3) Lymphocytes % 28.6 (24.0-44.0) % Monocytes % 9.4 (0.0-12.0) % Eosinophils % 1.1 (0.00-5.0) % Basophils % 0.4 (0.0-0.4) % Absolute Granulocytes 6.87 (1.4-6.9) Segmented Neutrophils (36.0-66.0) % Lymphocytes (Manual) (24-44) % Monocytes (Manual) (0.0-12.0) % Basophils # 0.05 (0-0.4) Sodium (137-145) mmol/L Potassium (3.5-5.1) mmol/L Chloride (98-107) mmol/L Carbon Dioxide (22-30) mmol/L Anion Gap (5-15) MEQ/L BUN (7-17) mg/dL Creatinine (0.52-1.04) mg/dL Estimated GFR ML/MIN Glucose (74-106) mg/dL Calcium (8.4-10.2) mg/dL Magnesium (1.6-2.3) mg/dL Total Bilirubin (0.2-1.3) mg/dL AST (14-36) U/L ALT (0-35) U/L Alkaline Phosphatase (38-126) U/L Troponin I < 0.012 (0.000-0.034) ng/mL Serum Total Protein (6.3-8.2) g/dL Albumin (3.5-5.0) g/dL Urine Color (YELLOW) Urine Appearance (CLEAR) Urine pH (5-6) Ur Specific [place] (1.005-1.025) Urine Protein (Negative) Urine Ketones (NEGATIVE) Urine Blood (0-5) [place]/ul Urine Nitrite (NEGATIVE) Urine Bilirubin (NEGATIVE) Urine Urobilinogen (0-1) mg/dL Ur Leukocyte Esterase (NEGATIVE) Urine WBC (Auto) (0-5) /HPF Urine RBC (Auto) (0-2) /HPF U Hyaline Cast (Auto) (0-2) /LPF U Epithel Cells (Auto) (FEW) /HPF Urine Bacteria (Auto) (NEGATIVE) /HPF Urine Mucus (Auto) (NEGATIVE) /HPF Urine Culture Reflexed (NO) Urine Glucose (NEGATIVE) mg/dL Urine HCG, Qual (Negative) Urine Opiates Level (NEGATIVE) Ur Methadone (NEGATIVE) Urine Barbiturates (NEGATIVE) Ur Phencyclidine (PCP) (NEGATIVE) Urine Amphetamine (NEGATIVE) U Benzodiazepine Level (NEGATIVE) Urine Cocaine (NEGATIVE) Urine Marijuana (THC) (NEGATIVE) Ethyl Alcohol (0-10) mg/dL Influenza Type A Ag NEGATIVE (NEGATIVE) Influenza Type B Ag NEGATIVE (NEGATIVE) RSV (PCR) NEGATIVE (Negative) SARS-CoV-2 (PCR) NEGATIVE (NEGATIVE) 06/12/21 06/12/21 Range/Units 06:35 06:35 WBC (4.0-10.5) K/mm3 RBC (4.1-5.4) M/mm3 Hgb (12.0-16.0) gm/dl Hct (35-47) % MCV (78-100) fl MCH (26-32) pg MCHC (32-36) g/dl RDW (11.5-14.0) % Plt Count (150-450) K/mm3 MPV (7.5-11.0) fl Gran % (36.0-66.0) % Eos # (Auto) (0-0.5) Absolute Lymphs (auto) (1.0-4.6) Absolute Monos (auto) (0.0-1.3) Lymphocytes % (24.0-44.0) % Monocytes % (0.0-12.0) % Eosinophils % (0.00-5.0) % Basophils % (0.0-0.4) % Absolute Granulocytes (1.4-6.9) Segmented Neutrophils (36.0-66.0) % Lymphocytes (Manual) (24-44) % Monocytes (Manual) (0.0-12.0) % Basophils # (0-0.4) Sodium 141 (137-145) mmol/L Potassium 2.9 L* (3.5-5.1) mmol/L Chloride 107 (98-107) mmol/L Carbon Dioxide 24 (22-30) mmol/L Anion Gap 13.2 (5-15) MEQ/L BUN 4 L (7-17) mg/dL Creatinine 0.84 (0.52-1.04) mg/dL Estimated GFR > 60.0 ML/MIN Glucose 59 L (74-106) mg/dL Calcium 8.6 (8.4-10.2) mg/dL Magnesium (1.6-2.3) mg/dL Total Bilirubin 0.50 (0.2-1.3) mg/dL AST 19 (14-36) U/L ALT 15 (0-35) U/L Alkaline Phosphatase 95 (38-126) U/L Troponin I < 0.012 (0.000-0.034) ng/mL Serum Total Protein 6.7 (6.3-8.2) g/dL Albumin 3.1 L (3.5-5.0) g/dL Urine Color (YELLOW) Urine Appearance (CLEAR) Urine pH (5-6) Ur Specific [place] (1.005-1.025) Urine Protein (Negative) Urine Ketones (NEGATIVE) Urine Blood (0-5) [place]/ul Urine Nitrite (NEGATIVE) Urine Bilirubin (NEGATIVE) Urine Urobilinogen (0-1) mg/dL Ur Leukocyte Esterase (NEGATIVE) Urine WBC (Auto) (0-5) /HPF Urine RBC (Auto) (0-2) /HPF U Hyaline Cast (Auto) (0-2) /LPF U Epithel Cells (Auto) (FEW) /HPF Urine Bacteria (Auto) (NEGATIVE) /HPF Urine Mucus (Auto) (NEGATIVE) /HPF Urine Culture Reflexed (NO) Urine Glucose (NEGATIVE) mg/dL Urine HCG, Qual (Negative) Urine Opiates Level (NEGATIVE) Ur Methadone (NEGATIVE) Urine Barbiturates (NEGATIVE) Ur Phencyclidine (PCP) (NEGATIVE) Urine Amphetamine (NEGATIVE) U Benzodiazepine Level (NEGATIVE) Urine Cocaine (NEGATIVE) Urine Marijuana (THC) (NEGATIVE) Ethyl Alcohol (0-10) mg/dL Influenza Type A Ag (NEGATIVE) Influenza Type B Ag (NEGATIVE) RSV (PCR) (Negative) SARS-CoV-2 (PCR) (NEGATIVE) Microbiology 06/11/21 14:53 Urine Culture - Preliminary Catherized NO GROWTH TO DATE - Radiology Impressions Radiology Exams & Impressions: Radiology Procedures Category Date Time Status HEAD WITHOUT CONTRAST [CT] Stat Exams 06/11/21 14:54 Completed Assessment/Plan (1) Seizure Current Visit: Yes Status: Acute Assessment & Plan: EEG pending. Will get MRi brain also. Code(s): R56.9 - UNSPECIFIED CONVULSIONS (2) Chronic pain Current Visit: Yes Status: Chronic Qualifiers: Chronic pain type: chronic pain syndrome Qualified Code(s): G89.4 - Chronic pain syndrome Code(s): G89.29 - OTHER CHRONIC PAIN (3) Crohn disease Current Visit: No Status: Chronic Qualifiers: Gastrointestinal tract location: unspecified location Digestive disease complication type: unspecified complication Qualified Code(s): K50.919 - Crohn's disease, unspecified, with unspecified complications Code(s): K50.90 - CROHN'S DISEASE, UNSPECIFIED, WITHOUT COMPLICATIONS
[2021-06-12] MEDS: Klor Con 10 MEQ PO SCH ×2 (09:37→21:09)
[2021-06-12] MEDS ORDERED: PROPRANOLOL HCL 160 MG PO SCH (10:00)
[2021-06-12] MEDS ORDERED: GABAPENTIN ENACARBIL 600 MG PO SCH (10:00)
[2021-06-12] MEDS ORDERED: Ativan 2 MG/1 ML VIAL IV ONE (13:42)
--- NOTE | 2021-06-12 14:53 | XRAY ---
Indication: Seizure one day earlier. Sagittal, coronal, and axial MRI brain performed using pre and post T1, T2, FLAIR, diffusion, and ADC sequences. 15 cc Dotarem contrast used. Comparison: None Ventriculosulcal pattern appears symmetric. No acute intracranial hemorrhage, abnormal extra-axial fluid collection, or mass effect. Diffusion images are negative for restricted signal. Negative for mesial temporal sclerosis. Following gadolinium, there is no abnormal enhancing intra or extra-axial mass. Fourth ventricle is midline without hydrocephalus. 7/8 cranial nerve complex bilaterally symmetric. Normal flow-void signal within the major intracerebral circulation. Normal appearing craniocervical junction and sella turcica. Left maxillary and right sphenoid sinuses demonstrate tiny fluid leveling. Impression: 1. Minimal paranasal sinus disease. 2. Remaining MRI brain with contrast exam is negative.
[2021-06-12] MEDS: ATARAX 25 MG PO SCH (21:08)
[2021-06-12] MEDS: Mirapex 0.5 MG Tablet PO SCH (21:08)
[2021-06-12] MEDS: Pepcid 20 MG PO SCH (21:08)
[2021-06-12] MEDS: Protonix 40MG Tablet PO SCH (21:09)
[2021-06-12] MEDS: Wellbutrin XL 150 MG PO SCH (21:09)
[2021-06-12] MEDS: Risperdal 1 MG PO SCH (21:09)
[2021-06-13 07:25] VITALS: BP 100/52; PULSE 84; O2SAT 96
[2021-06-13 07:53] LABS: Hematocrit 32.3 % (35-47); Hemoglobin 10.4 gm/dl (12.0-16.0); Mean Cell Volume 93.9 fl (78-100); Mean Corpuscular Hemoglobin 30.2 pg (26-32); Mean Corpuscular Hgb Concent. 32.2 g/dl (32-36); Mean Platelet Volume 8.8 fl (7.5-11.0); Platelet Count 349 K/mm3 (150-450); Red Blood Count 3.44 M/mm3 (4.1-5.4); Red Cell Distribution Width 14.3 % (11.5-14.0); White Blood Count 9.1 K/mm3 (4.0-10.5)
[2021-06-13 08:28] LABS: ANION GAP 13.2 MEQ/L (5-15); BLOOD UREA NITROGEN 5 mg/dL (7-17); CHLORIDE 108 mmol/L (98-107); Calcium 8.7 mg/dL (8.4-10.2); Carbon Dioxide 25 mmol/L (22-30); Creatinine 1 0.81 mg/dL (0.52-1.04); EST GLOMERULAR FILTRATION RATE > 60.0 ML/MIN; Glucose 75 mg/dL (74-106); MAGNESIUM 1.7 mg/dL (1.6-2.3); Potassium 3.7 mmol/L (3.5-5.1); SODIUM 143 mmol/L (137-145)
[2021-06-13] MEDS: NEURONTIN 300 MG PO SCH (09:31)
[2021-06-13] MEDS: SYNTHROID 75 MCG PO SCH (09:31)
[2021-06-13] MEDS: Sodium Chloride 0.9% 1000 ML 1,000 ML IV SCH (09:31)
[2021-06-13] MEDS: BUSPAR 5 MG PO SCH (09:31)
[2021-06-13] MEDS: Klor Con 10 MEQ PO SCH (09:31)
[2021-06-13] MEDS: Zanaflex 4 MG PO PRN (09:34)
--- NOTE | 2021-06-13 10:33 | PCM.DS ---
Discharge Summary Date of Admission: 06/11/21 18:30 Admitting Physician: PENNY SILVA Consults: Consults on Case 06/11/21 16:39 Tele-Health Consult ROUTINE Primary Care Provider: PENNY SILVA Allergies Allergies adhesive tape Allergy (Intermediate, Verified 06/11/21 14:38) Blisters [place] Allergy (Verified 06/11/21 14:38) paroxetine HCl [From Paxil] Adverse Reaction (Verified 06/11/21 14:38) Nausea Hospital Summary - Hospital Course Hospital Course: Pt is 25 yo female with Crohn's disease and chronic pain admitted for witnessed grand mal seizure. She had one previous seizure within the past 3 months. Teleneurologist advised could be interaction between tramadol and wellbutrin, and advised stopping the tramadol and decreasing wellbutrin dosage. EEG only significant for likely medication effect (basically wnl). CT head nonacute. MRI with sinus disease, otherwise normal. She will f/u outpatient with neurologist. Of note, pt had not slept for 2 days prior to this seizure. Pt's potassium was low, down to 2.9, during her stay. It recovered to 3.7 with po repletion and she will be sent home on potassium; recheck BMP in one week. Pt said she is feeling much better today. Pravin po well. I spoke to Dr. Leong this morning, thank you, about discontinuing the tramadol. He advised pt can stop by his office today and they will get started on med adjustment. - Vitals & Intake/Output Vital Signs: Vital Signs Temperature 97.3 F 06/13/21 07:25 Pulse Rate 84 06/13/21 07:25 Respiratory Rate 16 06/13/21 07:25 Blood Pressure 100/52 06/13/21 07:25 O2 Sat by Pulse Oximetry 96 06/13/21 07:25 Intake & Output: Intake & Output 06/10/21 06/11/21 06/12/21 06/13/21 11:59 11:59 11:59 11:59 Intake Total 1547 2060 Output Total 100 Balance 1447 2060 Weight 79.5 kg - Lab Result Diagrams: 06/13/21 07:33 06/13/21 07:01 Lab Results-Last 24 Hrs: Lab Results-Last 24 Hours 06/13/21 06/13/21 Range/Units 07:01 07:33 WBC 9.1 (4.0-10.5) K/mm3 RBC 3.44 L (4.1-5.4) M/mm3 Hgb 10.4 L (12.0-16.0) gm/dl Hct 32.3 L (35-47) % MCV 93.9 (78-100) fl MCH 30.2 (26-32) pg MCHC 32.2 (32-36) g/dl RDW 14.3 H (11.5-14.0) % Plt Count 349 (150-450) K/mm3 MPV 8.8 (7.5-11.0) fl Sodium 143 (137-145) mmol/L Potassium 3.7 D (3.5-5.1) mmol/L Chloride 108 H (98-107) mmol/L Carbon Dioxide 25 (22-30) mmol/L Anion Gap 13.2 (5-15) MEQ/L BUN 5 L (7-17) mg/dL Creatinine 0.81 (0.52-1.04) mg/dL Estimated GFR > 60.0 ML/MIN Glucose 75 (74-106) mg/dL Calcium 8.7 (8.4-10.2) mg/dL Magnesium 1.7 (1.6-2.3) mg/dL Micro Results-Entire Visit: Microbiology 06/11/21 14:53 Urine Culture - Final Catherized NO GROWTH - Radiology Exams Ordered Rad Exams-Entire Visit: Radiology Procedures Category Date Time Status HEAD WITHOUT CONTRAST [CT] Stat Exams 06/11/21 14:54 Completed MRI BRAIN W & W/O CONTRAST [MRI] Routine Exams 06/12/21 14:16 Completed - Procedures and Test Procedures and Tests throughout Hospitalization: Therapy Orders & Screens 06/12/21 07:51 EEG 41-60 Minutes (Normal) ONCE Comment: Reason For Exam: Diagnosis: SEUIZURE 06/12/21 13:17 Respiratory Therapy Assessment DAILY Comment: Diagnosis: SEUIZURE Discharge Exam General Appearance: no apparent distress, alert, other (sitting up in bed, eating. somewhat disheveled as usual.) Neurologic Exam: oriented x 3, cooperative Eye Exam: eyes nml inspection Ears, Nose, Throat Exam: moist mucous membranes Neck Exam: normal inspection Respiratory Exam: normal breath sounds, lungs clear, No crackles/rales, No rhonchi, No wheezing Cardiovascular Exam: regular rate/rhythm, normal heart sounds, No murmur Back Exam: normal inspection, No rash Extremity Exam: normal inspection, No pedal edema, No swelling Skin Exam: normal color, warm, dry, No rash Final Diagnosis/Problem List - Final Discharge Diagnosis/Problem (1) Seizure Current Visit: Yes Status: Acute Assessment & Plan: Per teleneurology, decreased wellbutrin to 150mg/d and stop the tramadol. Lack of sleep likely also contributed. F/u with neurology and PCP outpatient. Code(s): R56.9 - UNSPECIFIED CONVULSIONS (2) Chronic pain Current Visit: Yes Status: Chronic Assessment & Plan: Go see Dr. Leong today for med adjustment. She did receive IV morphine, po hydrocodone, and IV ativan during her stay. Code(s): G89.29 - OTHER CHRONIC PAIN (3) Crohn disease Current Visit: No Status: Chronic Code(s): K50.90 - CROHN'S DISEASE, UNSPE CIFIED, WITHOUT COMPLICATIONS - Discharge Disposition: Home, Self-Care Condition: Good Prescriptions: New Potassium Chloride [Klor-Con M20] 20 meq PO DAILY #30 cap Bupropion HCl Xl 150 mg [Wellbutrin XL 150 MG] 150 mg PO HS #30 tablet Continue hydrOXYzine pamoate [Vistaril] 50 mg PO HS risperiDONE [Risperidone] 3 mg PO HS Tizanidine HCl 4 mg PO TIDPRN PRN PRN Reason: Muscle Spasms Pramipexole Di-HCl 0.5 mg [Mirapex 0.5 MG Tablet] 0.5 mg PO HS Levothyroxine Sodium 75 Mcg [Synthroid 75 Mcg] 75 mcg PO DAILY Gabapentin Enacarbil [Horizant] 600 mg PO BID Albuterol 8 gm Mdi Hfa [Ventolin Hfa MDI] 90 mcg IH Q4H PRN #1 inh PRN Reason: Shortness Of Breath PANTOPRAZOLE 40 mg Tablet [Protonix 40MG Tablet] 40 mg PO QPM Famotidine 20 mg [Pepcid 20 MG] 20 mg PO HS Zolpidem Tartrate 5 mg [Ambien 5 MG Tablet] 5 mg PO HS Buspirone HCl 5 mg [Buspar 5 mg] 10 mg PO BID Propranolol HCl [Propranolol HCl ER] 160 mg PO DAILY Discontinued Bupropion HCl [Wellbutrin Xl] 300 mg PO HS Tramadol HCl [Tramadol HCl ER] 300 mg PO DAILY Tramadol HCl 50 mg [Ultram 50 mg] 50 mg PO Q4-6HPRN PRN PRN Reason: Pain Instructions: Chronic Pain (DC) Additional Instructions: Patient has a scheduled appt with a Neurologist at [facility] with on 2021 at 1:00p.m., Patient is to arrive 15 minutes early and office sets behind the [address]. [address] [place] [phone] phone number is Follow up with: VANCE LEONG I [NON-STAFF PHY W/O PRIVILEGES] - (Stop by his office to day to have medications adjusted.) PENNY SILVA [Primary Care Provider] - 06/25/21 1:30 pm Forms: Discharge Instructions
== END 2021-06-13 10:53 | disposition home or self-care (01) ==
LOC: ED 14:36 → MED SURG 18:30 → ED 18:32
PROVIDERS: ADMIT Family Medicine; ATTEND Family Medicine
DX: R56.9 Unspecified convulsions (principal); G89.29 Other chronic pain; K50.90 Crohn's disease, unspecified, without complications; W18.30XA Fall on same level, unspecified, initial encounter; Z72.0 Tobacco use; Z79.899 Other long term (current) drug therapy; Z20.828 Contact with and (suspected) exposure to other viral communicable diseases
CPT/HCPCS: 0241U; 36000; 36415; 70450; 70553; 80048; 80053; 80307; 81001; 83735; 84484; 84703; 85025; 85027; 87086; 93005; 93041; 93268; 94760; 95812; 96374; 96375; 99285; G0378; G0480; P9612; J2060; J2270; J2405; A9270-GY

== ENCOUNTER 2021-07-06 13:07 | Emergency (ER) | payer OTHER ==
[2021-07-06] MEDS ORDERED: Zofran 4 MG/2 ML VIAL IV ONE (13:37)
[2021-07-06] MEDS ORDERED: Sodium Chloride 0.9% 1000 ML 1,000 ML IV STA (13:37)
[2021-07-06] MEDS ORDERED: solu-MEDROL 125 MG, Sterile H2O 10 ml 2 ML IV ONE ×2 (13:37)
[2021-07-06] MEDS ORDERED: SUBLIMAZE 100 MCG/2 ML IV ONE (13:41)
--- NOTE | 2021-07-06 13:59 | XRAY ---
Indication: Short of breath. Comparison: June 01, 2021. Portable chest now demonstrates normal heart, lungs, and bony thorax.
[2021-07-06 15:01] LABS: Hematocrit 43.9 % (35-47); Hemoglobin 14.2 gm/dl (12.0-16.0); Mean Cell Volume 90.7 fl (78-100); Mean Corpuscular Hemoglobin 29.3 pg (26-32); Mean Corpuscular Hgb Concent. 32.3 g/dl (32-36); Mean Platelet Volume 9.9 fl (7.5-11.0); Platelet Count 201 K/mm3 (150-450); Red Blood Count 4.84 M/mm3 (4.1-5.4); Red Cell Distribution Width 15.2 % (11.5-14.0); White Blood Count 6.8 K/mm3 (4.0-10.5)
[2021-07-06] MEDS ORDERED: Sterile H2O 10 ml IJ ONE (15:16)
[2021-07-06 15:25] LABS: INR 1.17 (0.8-3.0); PROTIME 13.8 SECONDS (9.4-12.5)
[2021-07-06 15:36] LABS: ALBUMIN 4.6 g/dL (3.5-5.0); ALKALINE PHOSPHATASE 158 U/L (38-126); ANION GAP 17.7 MEQ/L (5-15); BLOOD UREA NITROGEN 12 mg/dL (7-17); CHLORIDE 108 mmol/L (98-107); Calcium 9.6 mg/dL (8.4-10.2); Carbon Dioxide 18 mmol/L (22-30); Creatinine 1 1.07 mg/dL (0.52-1.04); EST GLOMERULAR FILTRATION RATE > 60.0 ML/MIN; Glucose 92 mg/dL (74-106); Potassium 4.2 mmol/L (3.5-5.1); SGOT/AST 37 U/L (14-36); SGPT/ALT 37 U/L (0-35); SODIUM 139 mmol/L (137-145); Total Protein 8.4 g/dL (6.3-8.2)
[2021-07-06 15:44] LABS: AMYLASE 91 U/L (30-110); LIPASE 154 U/L (23-300); NT PRO BNP 203 pg/mL (0-450)
[2021-07-06 15:48] LABS: COVID AG -BINAX NOW RAPID TEST NEGATIVE (NEGATIVE); INFLUENZA A NEGATIVE (NEGATIVE); INFLUENZA B NEGATIVE (NEGATIVE)
--- NOTE | 2021-07-06 16:17 | ERPHSYRPT ---
- History of Present Illness Time Seen by Provider: 07/06/21 13:25 Exam Limitations: no limitations Patient Subjective Stated Complaint: Cough Triage Nursing Assessment: Patient brought back to ED via w/c and transferred self to bed. Patient A+O X3. Patient's skin pink, warm and dry. Patient complains of cough and increased SOB for 4 days. Patient states she has pain whe n coughing to back and chest /10. Patient complains of N/V and diarrhea. Lungs noted to have wheezing throughout. Physician History: Patient is a 25-year-old white female who presents with complaint of cough shortness of breath with some nausea vomiting and diarrhea recently. The cough has been present approximately 4 days she does have Crohn's disease and inflammatory bowel disease and has had a flare of that recently 1 month ago she had pneumonia and was treated she also has been vaccinated for Covid. Timing/Duration: day(s) (4) Cough Quality/Degree: productive cough Possible Cause: occasional episodes Modifying Factors: Improves With: coughing Associated Symptoms: shortness of breath Allergies/Adverse Reactions: adhesive tape Allergy (Intermediate, Verified 07/06/21 13:18) Blisters [place] Allergy (Verified 07/06/21 13:18) paroxetine HCl [From Paxil] Adverse Reaction (Verified 07/06/21 13:18) Nausea Home Medications: hydrOXYzine pamoate [Vistaril] 50 mg PO HS 01/29/19 [History] risperiDONE [Risperidone] 3 mg PO HS 03/23/19 [History] Gabapentin Enacarbil [Horizant] 600 mg PO BID 03/19/21 [History] Levothyroxine Sodium 75 Mcg [Synthroid 75 Mcg] 75 mcg PO DAILY 03/19/21 [History] Pramipexole Di-HCl 0.5 mg [Mirapex 0.5 MG Tablet] 0.5 mg PO HS 03/19/21 [History] Tizanidine HCl 4 mg PO TIDPRN PRN 03/19/21 [History] Buspirone HCl 5 mg [Buspar 5 mg] 10 mg PO BID 06/11/21 [History] Famotidine 20 mg [Pepcid 20 MG] 20 mg PO HS 06/11/21 [History] PANTOPRAZOLE 40 mg Tablet [Protonix 40MG Tablet] 40 mg PO QPM 06/11/21 [History] Propranolol HCl [Propranolol HCl ER] 160 mg PO DAILY 06/11/21 [History] Zolpidem Tartrate 5 mg [Ambien 5 MG Tablet] 5 mg PO HS 06/11/21 [History] Hx Tetanus, Diphtheria Vaccination/Date Given: Yes Hx Influenza Vaccination/Date Given: No Hx Pneumococcal Vaccination/Date Given: No Immunizations Up to Date: Yes Travel Risk - International Travel Have you traveled outside of the country in past 3 weeks: No - Coronavirus Screening Are you exhibiting any of the following symptoms?: No Close contact with a COVID-19 positive Pt in past 14-21 Days: No - Vaccine Status Have you recieved a Covid-19 vaccination: Yes 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[employer] - Vaccination Dates Date of 2cond Vaccination (if applicable): 11/2020 - Review of Systems Constitutional: No Fever, No Chills Eyes: No Symptoms Ears, Nose, & Throat: No Symptoms Respiratory: Cough, Dyspnea Cardiac: No Chest Pain, No Edema, No Syncope Abdominal/Gastrointestinal: Nausea, Vomiting, Diarrhea, No Abdominal Pain Genitourinary Symptoms: No Dysuria Musculoskeletal: No Back Pain, No Neck Pain Skin: No Rash Neurological: No Dizziness, No Focal Weakness, No Sensory Changes Psychological: No Symptoms Endocrine: No Symptoms All Other Systems: Reviewed and Negative - Past Medical History Pertinent Past Medical History: Yes Neurological History: Migraines, Seizures ENT History: No Pertinent History Cardiac History: No Pertinent History Respiratory History: Asthma Endocrine Medical History: No Pertinent History Musculoskeletal History: No Pertinent History GI Medical History: Irritable Bowel, Crohns Disease, GERD, Gallbladder Disease History: No Pertinent History Psycho-Social History: Depression, Anxiety Female Reproductive Disorders: Other Other Medical History: Reports Crohns; cysts on ovaries - Past Surgical History Past Surgical History: Yes Neuro Surgical History: No Pertinent History Cardiac: No Pertinent History Respiratory: No Pertinent History Gastrointestinal: Cholecystectomy Genitourinary: Other Musculoskeletal: Orthopedic Surgery Female Surgical History: Section Other Surgical History: right rotator cuff repair. Ear tubes bilat,ovarian cyst 2017. ovarian cyst removal jun 2016. colonscopy jun 2016 - Social History Smoking Status: Current every day smoker How long have you smoked: 4 YEARS Exposure to second hand smoke: Yes Alcohol Use: None Drug Use: none Patient Lives Alone: No Significant Family History: no pertinent family hx - Female History Hx Last Menstrual Period: depo Hx Now: No - Nursing Vital Signs Nursing Vital Signs: Initial Vital Signs Temperature 98.5 F 07/06/21 13:19 Pulse Rate 85 07/06/21 13:19 Respiratory Rate 18 07/06/21 13:19 Blood Pressure 129/86 07/06/21 13:19 O2 Sat by Pulse Oximetry 95 07/06/21 13:19 Pain Scale Pain Intensity 7 - Physical Exam General Appearance: mild distress, alert Eye Exam: PERRL/EOMI, eyes nml inspection Ears, Nose, Throat Exam: normal ENT inspection, TMs normal, pharynx normal, moist mucous membranes Neck Exam: normal inspection, non-tender, supple, full range of motion Respiratory Exam: airway intact, rhonchi, No respiratory distress Cardiovascular Exam: regular rate/rhythm, normal heart sounds Gastrointestinal/Abdomen Exam: soft, normal bowel sounds, tenderness, No guarding, No rebound Back Exam: normal inspection, No CVA tenderness, No vertebral tenderness Extremity Exam: normal inspection, normal range of motion Neurologic Exam: alert, oriented x 3, cooperative, normal mood/affect, sensation nml, No motor deficits Skin Exam: normal color, warm, dry, No rash Lymphatic Exam: No adenopathy SpO2: 93 - Course Nursing assessment & vital signs reviewed: Yes EKG Interpreted by Me: RATE (86), Sinus Rhythm, NORMAL AXIS, NORMAL INTERVALS, NORMAL QRS, NORMAL ST-T - Radiology Exams Chest X-ray Interpretation: Reviewed by me (Negative) Ordered Tests: Active Orders 24 hr Category Date Time Status 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 Kitchen STAT Care 07/06/21 13:38 Active EKG-ER Only STAT Care 07/06/21 13:37 Active IV Insertion STAT Care 07/06/21 13:37 Active CHEST 1 VIEW (PORTABLE) Stat Exams 07/06/21 13:38 Completed AMYLASE Stat Lab 07/06/21 14:30 Completed BLOOD CULTURE Stat Lab 07/06/21 14:30 Received CBC W DIFF Stat Lab 07/06/21 13:37 Completed CMP Stat Lab 07/06/21 14:30 Completed COVID AG-BINAX NOW RAPID TEST Stat Lab 07/06/21 14:10 Completed D-DIMER QUANTITATIVE Stat Lab 07/06/21 14:30 Completed HCG QUALITATIVE,SERUM Stat Lab 07/06/21 14:30 Completed INFLUENZA A+B YARED Stat Lab 07/06/21 14:10 Completed LIPASE Stat Lab 07/06/21 14:30 Completed Lactic Acid Stat Lab 07/06/21 13:37 Ordered Lactic Acid Stat Lab 07/06/21 13:41 Completed Manual Differential NC Stat Lab 07/06/21 13:37 Completed NT PRO BNP Stat Lab 07/06/21 14:30 Completed PROCALCITONIN Stat Lab 07/06/21 14:30 Completed PROTIME WITH INR Stat Lab 07/06/21 14:30 Completed TROPONIN Q3H Lab 07/06/21 14:30 Completed TROPONIN Q3H Lab 07/06/21 16:45 Ordered TROPONIN Q3H Lab 07/06/21 19:45 Ordered TROPONIN Q3H Lab 07/06/21 22:45 Ordered TROPONIN Q3H Lab 07/07/21 01:45 Ordered UA W/RFX UR CULTURE Stat Lab 07/06/21 13:37 Ordered Medication Summary Discontinued Medications Generic Name Dose Route Start Last Admin Trade Name Freq PRN Reason Stop Dose Admin Methylprednisolone Sodium 0 mg 07/06/21 13:37 07/06/21 15:22 Succinate 125 mg/ Sterile IV 07/06/21 13:38 125 mg Water 2 ml STAT ONE Administration Fentanyl Citrate 50 mcg 07/06/21 13:41 07/06/21 15:33 Fentanyl Citrate 100 Mcg/2 Ml* Vial IV 07/06/21 13:42 50 mcg STAT ONE Administration Sodium Chloride 1,000 mls @ 999 mls/hr 07/06/21 13:37 07/06/21 15:18 Sodium Chloride 0.9% 1000 Ml IV 07/06/21 14:37 999 mls/hr .Q1H1M STA Administration Ondansetron HCl 4 mg 07/06/21 13:37 07/06/21 15:23 Ondansetron Hcl 4 Mg/2 Ml Vial IV 07/06/21 13:38 4 mg STAT ONE Administration Sterile Water Confirm 07/06/21 15:16 Water For Injection,Sterile 10 Ml Vial Administered 07/06/21 15:17 Dose 10 ml IJ .STK-MED ONE Lab/Rad Data: Laboratory Result Diagrams 07/06/21 13:37 07/06/21 14:30 Laboratory Results 07/06/21 07/06/21 07/06/21 Range/Units 14:30 14:30 14:30 WBC (4.0-10.5) K/mm3 RBC (4.1-5.4) M/mm3 Hgb (12.0-16.0) gm/dl Hct (35-47) % MCV (78-100) fl MCH (26-32) pg MCHC (32-36) g/dl RDW (11.5-14.0) % Plt Count (150-450) K/mm3 MPV (7.5-11.0) fl PT (9.4-12.5) SECONDS INR (0.8-3.0) D-Dimer (215-500) ng/mL Sodium (137-145) mmol/L Potassium (3.5-5.1) mmol/L Chloride (98-107) mmol/L Carbon Dioxide (22-30) mmol/L Anion Gap (5-15) MEQ/L BUN (7-17) mg/dL Creatinine (0.52-1.04) mg/dL Estimated GFR ML/MIN Glucose (74-106) mg/dL Lactic Acid (0.4-2.0) Calcium (8.4-10.2) mg/dL Total Bilirubin (0.2-1.3) mg/dL AST (14-36) U/L ALT (0-35) U/L Alkaline Phosphatase (38-126) U/L Troponin I < 0.012 (0.000-0.034) ng/mL NT-Pro-B Natriuret Pep (0-450) pg/mL Serum Total Protein (6.3-8.2) g/dL Albumin (3.5-5.0) g/dL Amylase (30-110) U/L Lipase (23-300) U/L Procalcitonin 0.388 H (0.030-0.080) ng/mL Serum , Qual NEGATIVE (Negative) Influenza Type A Ag (NEGATIVE) Influenza Type B Ag (NEGATIVE) SARS-CoV-2 Ag (Rapid) (NEGATIVE) Group A Strep Antibody (NEGATIVE) 07/06/21 07/06/21 07/06/21 Range/Units 14:30 14:30 14:30 WBC (4.0-10.5) K/mm3 RBC (4.1-5.4) M/mm3 Hgb (12.0-16.0) gm/dl Hct (35-47) % MCV (78-100) fl MCH (26-32) pg MCHC (32-36) g/dl RDW (11.5-14.0) % Plt Count (150-450) K/mm3 MPV (7.5-11.0) fl PT 13.8 H (9.4-12.5) SECONDS INR 1.17 (0.8-3.0) D-Dimer < 215 L (215-500) ng/mL Sodium (137-145) mmol/L Potassium (3.5-5.1) mmol/L Chloride (98-107) mmol/L Carbon Dioxide (22-30) mmol/L Anion Gap (5-15) MEQ/L BUN (7-17) mg/dL Creatinine (0.52-1.04) mg/dL Estimated GFR ML/MIN Glucose (74-106) mg/dL Lactic Acid (0.4-2.0) Calcium (8.4-10.2) mg/dL Total Bilirubin (0.2-1.3) mg/dL AST (14-36) U/L ALT (0-35) U/L Alkaline Phosphatase (38-126) U/L Troponin I (0.000-0.034) ng/mL NT-Pro-B Natriuret Pep 203 (0-450) pg/mL Serum Total Protein (6.3-8.2) g/dL Albumin (3.5-5.0) g/dL Amylase 91 (30-110) U/L Lipase 154 (23-300) U/L Procalcitonin (0.030-0.080) ng/mL Serum , Qual (Negative) Influenza Type A Ag (NEGATIVE) Influenza Type B Ag (NEGATIVE) SARS-CoV-2 Ag (Rapid) (NEGATIVE) Group A Strep Antibody (NEGATIVE) 07/06/21 07/06/21 07/06/21 Range/Units 14:30 14:10 14:10 WBC (4.0-10.5) K/mm3 RBC (4.1-5.4) M/mm3 Hgb (12.0-16.0) gm/dl Hct (35-47) % MCV (78-100) fl MCH (26-32) pg MCHC (32-36) g/dl RDW (11.5-14.0) % Plt Count (150-450) K/mm3 MPV (7.5-11.0) fl PT (9.4-12.5) SECONDS INR (0.8-3.0) D-Dimer (215-500) ng/mL Sodium 139 (137-145) mmol/L Potassium 4.2 (3.5-5.1) mmol/L Chloride 108 H (98-107) mmol/L Carbon Dioxide 18 L (22-30) mmol/L Anion Gap 17.7 H (5-15) MEQ/L BUN 12 (7-17) mg/dL Creatinine 1.07 H (0.52-1.04) mg/dL Estimated GFR > 60.0 ML/MIN Glucose 92 (74-106) mg/dL Lactic Acid (0.4-2.0) Calcium 9.6 (8.4-10.2) mg/dL Total Bilirubin 0.50 (0.2-1.3) mg/dL AST 37 H (14-36) U/L ALT 37 H (0-35) U/L Alkaline Phosphatase 158 H (38-126) U/L Troponin I (0.000-0.034) ng/mL NT-Pro-B Natriuret Pep (0-450) pg/mL Serum Total Protein 8.4 H (6.3-8.2) g/dL Albumin 4.6 (3.5-5.0) g/dL Amylase (30-110) U/L Lipase (23-300) U/L Procalcitonin (0.030-0.080) ng/mL Serum , Qual (Negative) Influenza Type A Ag (NEGATIVE) Influenza Type B Ag (NEGATIVE) SARS-CoV-2 Ag (Rapid) NEGATIVE (NEGATIVE) Group A Strep Antibody NOT DETECTED (NEGATIVE) 07/06/21 07/06/21 07/06/21 Range/Units 14:10 13:41 13:37 WBC 6.8 (4.0-10.5) K/mm3 RBC 4.84 (4.1-5.4) M/mm3 Hgb 14.2 (12.0-16.0) gm/dl Hct 43.9 (35-47) % MCV 90.7 (78-100) fl MCH 29.3 (26-32) pg MCHC 32.3 (32-36) g/dl RDW 15.2 H (11.5-14.0) % Plt Count 201 (150-450) K/mm3 MPV 9.9 (7.5-11.0) fl PT (9.4-12.5) SECONDS INR (0.8-3.0) D-Dimer (215-500) ng/mL Sodium (137-145) mmol/L Potassium (3.5-5.1) mmol/L Chloride (98-107) mmol/L Carbon Dioxide (22-30) mmol/L Anion Gap (5-15) MEQ/L BUN (7-17) mg/dL Creatinine (0.52-1.04) mg/dL Estimated GFR ML/MIN Glucose (74-106) mg/dL Lactic Acid 1.1 (0.4-2.0) Calcium (8.4-10.2) mg/dL Total Bilirubin (0.2-1.3) mg/dL AST (14-36) U/L ALT (0-35) U/L Alkaline Phosphatase (38-126) U/L Troponin I (0.000-0.034) ng/mL NT-Pro-B Natriuret Pep (0-450) pg/mL Serum Total Protein (6.3-8.2) g/dL Albumin (3.5-5.0) g/dL Amylase (30-110) U/L Lipase (23-300) U/L Procalcitonin (0.030-0.080) ng/mL Serum , Qual (Negative) Influenza Type A Ag NEGATIVE (NEGATIVE) Influenza Type B Ag NEGATIVE (NEGATIVE) SARS-CoV-2 Ag (Rapid) (NEGATIVE) Group A Strep Antibody (NEGATIVE) - Progress Progress: improved Air Movement: good Blood Culture(s) Obtained: Yes Antibiotics given: Yes - Departure Departure Disposition: Home Clinical Impression: Bronchitis, Inflammatory bowel disease, Crohn disease Condition: Stable Critical Care Time: No Referrals: PENNY SILVA [Primary Care Provider] - Follow up/PCP as directed Instructions: Acute Bronchitis, Adult (DC) Prescriptions: Prednisone 10 mg [Deltasone 10 mg] 10 mg PO TID #12 tablet Cephalexin Mh 500 mg [Keflex 500 mg] 500 mg PO Q6H 10 Days #40 cap
[2021-07-06 16:26] VITALS: BP 110/77; PULSE 83; O2SAT 94
[2021-07-06 16:26] LABS: ATYPICAL LYMPHS 3 %; Lymphocytes 33 % (24-44); Microcytosis 1+; Monocyte 7 % (0.0-12.0); Neutrophils 57 % (36.0-66.0); Platelet Estimate NORMAL (NORMAL); Total Cells Counted 100
== END 2021-07-06 16:43 | disposition home or self-care (01) ==
LOC: ED 13:07
DX: J20.9 Acute bronchitis, unspecified (principal); K58.0 Irritable bowel syndrome with diarrhea; R05.9 Cough, unspecified; R06.02 Shortness of breath; R11.2 Nausea with vomiting, unspecified; K21.9 Gastro-esophageal reflux disease without esophagitis; Z72.0 Tobacco use; Z79.899 Other long term (current) drug therapy; Z79.52 Long term (current) use of systemic steroids
CPT/HCPCS: 36000; 36415; 71045; 80053; 81025; 82150; 83605; 83690; 83880; 84145; 84484; 85025; 85379; 85610; 87040; 87400; 87651; 93005; 93041; 96374; 96375; 99000; 99284; J2405; J2930; J3010

== ENCOUNTER 2022-10-18 18:23 | Emergency (ER) | payer OTHER ==
[2022-10-18 18:36] VITALS: BP 107/64; O2SAT 99
--- NOTE | 2022-10-18 18:39 | ERPHSYRPT ---
- History of Present Illness Time Seen by Provider: 10/18/22 18:39 Source: patient Exam Limitations: no limitations Physician History: This is a 26-year-old white female who noticed tender red area on her skin of the left hip. By this evening there is a large blister present. It is still intact. She did not see an insect or spider. She has not had fevers. She states she is not allergic to any antibiotics. Quality: painful Severity: mild (To moderate) Location: other (Skin overlying left hip) Possible Causes: insect bite Associated Symptoms: blisters Allergies/Adverse Reactions: adhesive tape Allergy (Intermediate, Verified 10/18/22 18:37) Blisters [place] Allergy (Verified 10/18/22 18:37) paroxetine HCl [From Paxil] Adverse Reaction (Verified 10/18/22 18:37) Nausea Home Medications: hydrOXYzine pamoate [Vistaril] 50 mg PO HS 01/29/19 [History] risperiDONE [Risperidone] 3 mg PO HS 03/23/19 [History] Gabapentin Enacarbil [Horizant] 600 mg PO BID 03/19/21 [History] Levothyroxine Sodium 75 Mcg [Synthroid 75 Mcg] 75 mcg PO DAILY 03/19/21 [History] Pramipexole Di-HCl 0.5 mg [Mirapex 0.5 MG Tablet] 0.5 mg PO HS 03/19/21 [History] Tizanidine HCl 4 mg PO TIDPRN PRN 03/19/21 [History] Buspirone HCl 5 mg [Buspar 5 mg] 10 mg PO BID 06/11/21 [History] Famotidine 20 mg [Pepcid 20 MG] 20 mg PO HS 06/11/21 [History] PANTOPRAZOLE 40 mg Tablet [Protonix 40MG Tablet] 40 mg PO QPM 06/11/21 [History] Propranolol HCl [Propranolol HCl ER] 160 mg PO DAILY 06/11/21 [History] Zolpidem Tartrate 5 mg [Ambien 5 MG Tablet] 5 mg PO HS 06/11/21 [History] Hx Tetanus, Diphtheria Vaccination/Date Given: Yes Hx Influenza Vaccination/Date Given: No Hx Pneumococcal Vaccination/Date Given: No Travel Risk - International Travel Have you traveled outside of the country in past 3 weeks: No - Coronavirus Screening Are you exhibiting any of the following symptoms?: No Close contact with a COVID-19 positive Pt in past 14-21 Days: No - Vaccine Status Have you recieved a Covid-19 vaccination: Yes 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 Dates Date of 2cond Vaccination (if applicable): 11/2020 - Review of Systems Constitutional: No Symptoms Eyes: No Symptoms Ears, Nose, & Throat: No Symptoms Respiratory: No Symptoms Cardiac: No Symptoms Abdominal/Gastrointestinal: No Symptoms Genitourinary Symptoms: No Symptoms Musculoskeletal: No Symptoms Skin: Cellulitis (With overlying blister skin of left hip) Neurological: No Symptoms Psychological: No Symptoms Endocrine: No Symptoms Hematologic/Lymphatic: No Symptoms Immunological/Allergic: No Symptoms All Other Systems: Reviewed and Negative - Past Medical History Pertinent Past Medical History: Yes Neurological History: Migraines, Seizures ENT History: No Pertinent History Cardiac History: Other Respiratory History: Asthma Endocrine Medical History: Hypothyroidism Musculoskeletal History: Other GI Medical History: Irritable Bowel, Crohns Disease, GERD, Gallbladder Disease History: No Pertinent History Psycho-Social History: Depression, Anxiety Female Reproductive Disorders: Other Other Medical History: Yue reports that hx of seizures was a result of medication interaction and the last time she experienced a seizure was summer. 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 Ear tubes bilat,ovarian cyst 2016. ovarian cyst removal jun 2016. colonscopy jun 2016 - Social History Smoking Status: Current every day smoker How long have you smoked: 4 YEARS Exposure to second hand smoke: Yes Alcohol Use: None Drug Use: none Patient Lives Alone: No Significant Family History: no pertinent family hx - Nursing Vital Signs Nursing Vital Signs: Initial Vital Signs Temperature 98.1 F 10/18/22 18:36 Pulse Rate 100 H 10/18/22 18:36 Respiratory Rate 18 10/18/22 18:36 Blood Pressure 107/64 10/18/22 18:36 O2 Sat by Pulse Oximetry 99 10/18/22 18:36 Pain Scale Pain Intensity 6 - Physical Exam General Appearance: no apparent distress, alert, anxiety Eye Exam: PERRL/EOMI, eyes nml inspection Ears, Nose, Throat Exam: normal ENT inspection, moist mucous membranes Neck Exam: normal inspection, non-tender, supple, full range of motion Respiratory Exam: airway intact, No chest tenderness, No respiratory distress Gastrointestinal/Abdomen Exam: No tenderness Pelvic Exam: not done Rectal Exam: not done Back Exam: normal inspection, normal range of motion, No CVA tenderness, No vertebral tenderness Extremity Exam: normal range of motion, pelvis stable, tenderness (Skin overlying left hip) Neurologic Exam: alert, oriented x 3, cooperative, physical scientist II-XII nml as tested, normal mood/affect, nml cerebellar function, nml station & gait, sensation nml Skin Exam: other (Area of cellulitis measuring approximately 6 x 6 cm skin overlying left hip with blister that is intact) Lymphatic Exam: No adenopathy SpO2 Interpretation: normal SpO2: 99 O2 Delivery: Room Air - Course Nursing assessment & vital signs reviewed: Yes - Progress Progress: unchanged Progress Note: 10/18/22 19:21 This patient's medical issues 1 of low complexity. The level of complexity and the work-up performed is based on the review of the patient's past medical history, history of present illness, review of of patient's medication list, review of patient's drug allergy list, physical findings on examination. No radiographic or laboratory studies are necessary in this patient. The patient does have a blister of the skin overlying a small area of cellulitis of the left hip. It does appear that it is some type of insect envenomation. We will provide the patient with Rocephin 1 g intramuscularly and Bactrim DS 1 orally here in the emergency department. We will also provide her with 1 tablet orally of [place] 5/325 and send 2 tablets home with her. She is to keep the area clean and and dry. She is to cover the wound with a thin layer of antibiotic ointment of choice, a nonstick gauze and bandage. I will send remotely a prescription for 7 days of Bactrim DS to her pharmacy. Counseled pt/family regarding: diagnosis, need for follow-up Medical Desision Making - Independent Historian Additional History obtained from: Mother - Diagnostic Testing Diagnostic test were ordered, analyzed, and reviewed by me: No - Departure Departure Disposition: Home Clinical Impression: Cellulitis of left hip Condition: Stable Critical Care Time: No Referrals: CIERRA MOSCOSO MD [Primary Care Provider] - Follow up/PCP as directed Additional Instructions: Keep left hip cellulitis/blister area clean daily. Do not worry about the blister popping on its own. Cover the area daily after cleaning with soap and water with a thin layer of antibiotic ointment and nonstick gauze and bandage. Take antibiotics as prescribed. Follow-up with your primary care provider for further evaluation management. Prescriptions: Smz/Tmp Ds Tablet [Bactrim Ds Tablet] 1 udtab PO BID #14 tablet
[2022-10-18] MEDS ORDERED: NORCO 5/325 MG PO ONE ×2 (19:25→19:27)
[2022-10-18] MEDS ORDERED: BACTRIM DS TABLET PO ONE ×2 (19:26→19:32)
[2022-10-18] MEDS ORDERED: Rocephin 1000 MG INJ IM ONE (19:26)
[2022-10-18] MEDS ORDERED: Rocephin 1000 MG INJ ONE (19:32)
[2022-10-18] MEDS ORDERED: NORCO 5/325 MG ONE (19:32)
[2022-10-18 19:55] VITALS: PULSE 92
== END 2022-10-18 19:55 | disposition home or self-care (01) ==
LOC: ED 18:23
DX: L03.116 Cellulitis of left lower limb (principal); Z79.899 Other long term (current) drug therapy; Z72.0 Tobacco use
CPT/HCPCS: 96372; 99283; J0696; A9270-GY

== ENCOUNTER 2024-01-18 15:50 | Emergency (ER) | payer MEDICAID, OTHER ==
[2024-01-18 15:54] VITALS: TEMP 98.3
[2024-01-18 16:18] LABS: Absolute Neutrophil Ct (ANC) 8.36 x10^3/uL (1.56-6.13); BASOPHIL % 0.4 % (0.1-1.2); Basophil (Absolute #) 0.05 x10^3/uL (0.01-0.08); Eosinophil % 1.6 % (0.7-5.8); Eosinophil (Absolute #) 0.21 x10^3/uL (0.04-0.36); Hematocrit 32.8 % (34.1-44.9); Hemoglobin 10.2 g/dL (11.2-15.7); IMMATURE GRAN # 0.07 x10^3u/L (0.001-0.031); IMMATURE GRAN % 0.5 % (0.001-0.429); Lymphocyte (Absolute #) 3.22 x10^3/uL (1.18-3.74); Lymphocytes % 24.9 % (19.3-51.7); Mean Cell Volume 92.1 fL (79.4-94.8); Mean Corpuscular Hemoglobin 28.7 pg (25.6-32.2); Mean Corpuscular Hgb Concent. 31.1 g/dL (32.2-35.5); Mean Platelet Volume 8.7 fL (9.4-12.3); Monocyte (Absolute #) 1.04 x10^3/uL (0.24-0.86); Neutrophil % 64.6 % (34.0-71.1); Platelet Count 280 x10^3/uL (182-369); Red Blood Count 3.56 x10^6/uL (3.93-5.22)
[2024-01-18 16:28] LABS: ACETAMINOPHEN < 10 ug/ml (10-30); ALBUMIN 3.8 g/dL (3.5-5.0); ALKALINE PHOSPHATASE 94 U/L (38-126); ANION GAP 11.4 MEQ/L (5-15); BLOOD UREA NITROGEN 12 mg/dL (7-17); CHLORIDE 104 mmol/L (98-107); Calcium 9.2 mg/dL (8.4-10.2); Carbon Dioxide 27 mmol/L (22-30); Creatinine 1 0.99 mg/dL (0.52-1.04); EST GLOMERULAR FILTRATION RATE 79.2 ML/MIN; ETHYL ALCOHOL < 10 mg/dL (0-10); Glucose 119 mg/dL (74-106); Potassium 4.1 mmol/L (3.5-5.1); SALICYLATE < 1.0 mg/dL (2-20); SGOT/AST 35 U/L (14-36); SGPT/ALT 24 U/L (0-35); SODIUM 138 mmol/L (135-145)
[2024-01-18] MEDS ORDERED: Ativan 2 MG/1 ML VIAL ONE (16:33)
[2024-01-18] MEDS: Ativan 2 MG/1 ML VIAL IV ONE (16:34)
[2024-01-18 17:04] LABS: Appearance Clear (Clear); Bacteria None Seen /HPF (None Seen); Bilirubin Negative (Negative); Blood Negative (Negative); Epithelial Cells Rare /HPF (None Seen); Glucose, Urine Negative (Negative); Hyaline Casts NONE SEEN /LPF (0-2); Ketones Negative (Negative); Leukocyte Esterase Trace (Negative); Nitrite Negative (Negative); Ph 6.5 (4.6-8.0); Protein,Urine Dip Negative (Negative); RBC 0-2 /HPF (0-5); Urobilinogen 0.2 mg/dL (0.2); WBC 0-2 /HPF (0-5)
[2024-01-18 17:05] LABS: ADD URINE CULTURE? NO (NO)
[2024-01-18 17:14] LABS: Amphetamine,Urine NEGATIVE (NEGATIVE); Barbiturate,Urine NEGATIVE (NEGATIVE); Benzodiazepine,Urine NEGATIVE (NEGATIVE); Cocaine,Urine NEGATIVE (NEGATIVE); Methadone,Urine NEGATIVE (NEGATIVE); Opiate,Urine NEGATIVE (NEGATIVE); PCP,Urine NEGATIVE (NEGATIVE); THC,Urine NEGATIVE (NEGATIVE)
[2024-01-18] MEDS ORDERED: Sodium Chloride 0.9% 1000 ML 1,000 ML ONE (17:16)
[2024-01-18] MEDS: Sodium Chloride 0.9% 1000 ML 1,000 ML IV STA (17:19)
--- NOTE | 2024-01-18 17:27 | ERPHSYRPT ---
- History of Present Illness Source: patient, EMS Exam Limitations: no limitations Patient Subjective Stated Complaint: pt here for taking 10 benadryl to get high, took at 1310 Triage Nursing Assessment: pt alert, arrived per ambulance, was able to walk to bed, resp easy, skin w/d/pale. moves all ext well, no edema nted Timing/Duration: today Severity of Symptoms-Max: none Severity of Symptoms-Current: none Context related to: other Suicidal thoughts: gesture Associated Symptoms: denies symptoms Previous symptoms: no prior history Hx Tetanus, Diphtheria Vaccination/Date Given: Yes Hx Influenza Vaccination/Date Given: No Hx Pneumococcal Vaccination/Date Given: No Immunizations Up to Date: Yes <CIERRA MOSCOSO - Last Filed: 01/18/24 18:48> <MAME RANDLE - Last Filed: 01/18/24 19:23> - History of Present Illness Time Seen by Provider: 01/18/24 17:23 Physician History: pt here for taking 10 benadryl to get high, took at 1310. Patient is 28-year-old female with long standing history of bipolar disorder with patricia as well as obsessive-compulsive disorder recently has some argument with her grandpa and she took 10 Benadryl 25 mg each at around 1310 hours. Patient came to the emergency room around 1600 hrs. (CIERRA MOSCOSO) Allergies/Adverse Reactions: adhesive tape Allergy (Intermediate, Verified 01/18/24 15:52) Blisters [place] Allergy (Verified 01/18/24 15:52) paroxetine HCl [From Paxil] Adverse Reaction (Verified 01/18/24 15:52) Nausea Home Medications: hydrOXYzine pamoate [Vistaril] 50 mg PO HS 01/29/19 [History] risperiDONE [Risperidone] 3 mg PO HS 03/23/19 [History] Gabapentin Enacarbil [Horizant] 600 mg PO BID 03/19/21 [History] Levothyroxine Sodium 75 Mcg [Synthroid 75 Mcg] 75 mcg PO DAILY 03/19/21 [History] Pramipexole Di-HCl 0.5 mg [Mirapex 0.5 MG Tablet] 0.5 mg PO HS 03/19/21 [ History] Tizanidine HCl 4 mg PO TIDPRN PRN 03/19/21 [History] Buspirone HCl 5 mg [Buspar 5 mg] 10 mg PO BID 06/11/21 [History] Famotidine 20 mg [Pepcid 20 MG] 20 mg PO HS 06/11/21 [History] PANTOPRAZOLE 40 mg Tablet [Protonix 40MG Tablet] 40 mg PO QPM 06/11/21 [History] Propranolol HCl [Propranolol HCl ER] 160 mg PO DAILY 06/11/21 [History] Zolpidem Tartrate 5 mg [Ambien 5 MG Tablet] 5 mg PO HS 06/11/21 [History] Travel Risk - International Travel Have you traveled outside of the country in past 3 weeks: No - Emerging Infectious Disease Are you exhibiting symptoms associated with any current EIDs: No <DANIS,CIERRA - Last Filed: 01/18/24 18:48> - Past Medical History Pertinent Past Medical History: Yes Neurological History: Migraines, Seizures ENT History: No Pertinent History Cardiac History: Other Respiratory History: Asthma Endocrine Medical History: Hypothyroidism Musculoskeletal History: Other GI Medical History: Irritable Bowel, Crohns Disease, GERD, Gallbladder Disease History: No Pertinent History Psycho-Social History: Depression, Anxiety Female Reproductive Disorders: Other Other Medical History: Yue reports that hx of seizures was a result of medication interaction and the last time she experienced a seizure was summer. 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 Ear tubes bilat,ovarian cyst 2017. ovarian cyst removal jun 2016. colonscopy jun 2016 Significant Family History: no pertinent family hx - Female History Hx Last Menstrual Period: unsure Hx Now: No - Social History Smoking Status: Former smoker How long have you smoked: 4 YEARS Exposure to second hand smoke: Yes Alcohol Use: None Drug Use: none Patient Lives Alone: No - Social Determinants of Health Will the patient participate in the screening: Yes Do you worry about a steady place to live?: No Do you have any problems with any of the following?: No known problems In the past 12 months,have you had to go without utilities?: No Transportation Issues: Yes Has anyone in your support network made you feel unsafe?: No Have you or anyone in your house had to go without enough: No <DANIS, - Last Filed: 01/18/24 18:48> - Review of Systems Constitutional: No Fever, No Chills Eyes: No Symptoms Ears, Nose, & Throat: No Symptoms Respiratory: No Cough, No Dyspnea Cardiac: No Chest Pain, No Edema, No Syncope Abdominal/Gastrointestinal: No Abdominal Pain, No Nausea, No Vomiting, No Diarrhea Genitourinary Symptoms: No Dysuria Musculoskeletal: No Back Pain, No Neck Pain Skin: No Rash Neurological: No Dizziness, No Focal Weakness, No Sensory Changes Psychological: Emotional Lability Endocrine: No Symptoms All Other Systems: Reviewed and Negative <DANIS, Last Filed: 01/18/24 18:48> - Physical Exam General Appearance: no apparent distress Eyes, Ears, Nose, Throat Exam: normal ENT inspection, moist mucous membranes Neck Exam: normal inspection, non-tender, supple Respiratory Exam: normal breath sounds, lungs clear, No respiratory distress Cardiovascular Exam: regular rate/rhythm, No edema Gastrointestinal/Abdominal Exam: soft, No tenderness, No distention Extremities Exam: normal inspection, normal range of motion, No evidence of injury, No edema Current Suicidality: denies suicide plan Neurological Exam: alert, e/m engineer II-XII nml as tested, oriented x 3 Behavior/Eye Contact/Speech: alert & cooperative Thoughts/Hallucinations: normal thought pattern, no apparent hallucination Skin Exam: normal color, warm, dry, No rash SpO2 Interpretation: normal SpO2: 97 O2 Delivery: Room Air <DANIS, - Last Filed: 01/18/24 18:48> - Nursing Vital Signs Nursing Vital Signs: Initial Vital Signs Temperature 98.3 F 01/18/24 15:53 Pulse Rate 120 H 01/18/24 15:53 Respiratory Rate 18 01/18/24 15:53 Blood Pressure 115/59 01/18/24 15:53 O2 Sat by Pulse Oximetry 96 01/18/24 15:53 Pain Scale Pain Intensity 4 - Course Nursing assessment & vital signs reviewed: Yes <DANIS,CIERRA - Last Filed: 01/18/24 18:48> Ordered Tests: Active Orders 24 hr Category Date Time Status Fence Manufacture Supervisor STAT Care 01/18/24 16:13 Active EKG-ER Only STAT Care 01/18/24 16:12 Active IV Insertion STAT Care 01/18/24 16:12 Active Pulse Oximetry (ED) STAT Care 01/18/24 16:12 Active ACETAMINOPHEN Stat Lab 01/18/24 16:10 Completed CBC W DIFF Stat Lab 01/18/24 16:10 Completed CMP Stat Lab 01/18/24 16:10 Completed ETHYL ALCOHOL Stat Lab 01/18/24 16:10 Completed SALICYLATE Stat Lab 01/18/24 16:10 Completed UA W/RFX UR CULTURE Stat Lab 01/18/24 16:26 Completed Urine Triage Profile Stat Lab 01/18/24 16:32 Completed Medication Summary Discontinued Medications Generic Name Dose Route Start Last Admin Trade Name Dimple PRN Reason Stop Dose Admin Acetaminophen 1,000 mg 01/18/24 17:37 01/18/24 17:45 Acetaminophen 500 Mg Tablet PO 01/18/24 17:38 1,000 mg STAT STA Administration Acetaminophen Confirm 01/18/24 17:42 Acetaminophen 500 Mg Tablet Administered 01/18/24 17:43 Dose 1,000 mg .ROUTE .STK-MED ONE Hydroxyzine HCl 25 mg 01/18/24 17:37 01/18/24 17:46 Hydroxyzine Hcl 100 Mg/2 Ml Vial IM 01/18/24 17:38 25 mg STAT ONE Administration Hydroxyzine HCl Confirm 01/18/24 17:41 Hydroxyzine Hcl 100 Mg/2 Ml Vial Administered 01/18/24 17:42 Dose 100 mg IM .STK-MED ONE Sodium Chloride 1,000 mls @ 999 mls/hr 01/18/24 17:11 01/18/24 18:35 Sodium Chloride 0.9% 1000 Ml IV 01/18/24 18:11 Infused .Q1H1M STA Infusion Sodium Chloride Confirm 01/18/24 17:16 Sodium Chloride 0.9% 1000 Ml Administered 01/18/24 17:17 Dose 1,000 mls @ ud .ROUTE .STK-MED ONE Lorazepam 2 mg 01/18/24 16:15 01/18/24 16:34 Lorazepam 2 Mg/1 Ml 2 Mg Vial IV 01/18/24 16:16 2 mg STAT ONE Administration Lorazepam Confirm 01/18/24 16:33 Lorazepam 2 Mg/1 Ml 2 Mg Vial Administered 01/18/24 16:34 Dose 2 mg .ROUTE .STK-MED ONE Lab/Rad Data: Laboratory Result Diagrams 01/18/24 16:10 01/18/24 16:10 Laboratory Results 01/18/24 01/18/24 01/18/24 Range/Units 16:32 16:26 16:10 WBC (3.98-10.04) x10^3/uL RBC (3.93-5.22) x10^6/uL Hgb (11.2-15.7) g/dL Hct (34.1-44.9) % MCV (79.4-94.8) fL MCH (25.6-32.2) pg MCHC (32.2-35.5) g/dL RDW (11.7-14.4) % Plt Count (182-369) x10^3/uL MPV (9.4-12.3) fL Gran % (34.0-71.1) % Immature Gran % (Auto) (0.001-0.429) % Nucleat RBC Rel Count (0.00-0.2) % Eos # (Auto) (0.04-0.36) x10^3/uL Immature Gran # (Auto) (0.001-0.031) x10^3u/L Absolute Lymphs (auto) (1.18-3.74) x10^3/uL Absolute Monos (auto) (0.24-0.86) x10^3/uL Absolute Nucleated RBC (0.00-0.012) x10^3u/L Lymphocytes % (19.3-51.7) % Monocytes % (4.7-12.5) % Eosinophils % (0.7-5.8) % Basophils % (0.1-1.2) % Absolute Granulocytes (1.56-6.13) x10^3/uL Basophils # (0.01-0.08) x10^3/uL Sodium 138 (135-145) mmol/L Potassium 4.1 (3.5-5.1) mmol/L Chloride 104 (98-107) mmol/L Carbon Dioxide 27 (22-30) mmol/L Anion Gap 11.4 (5-15) MEQ/L BUN 12 (7-17) mg/dL Creatinine 0.99 (0.52-1.04) mg/dL Estimated GFR 79.2 ML/MIN Glucose 119 H (74-106) mg/dL Calcium 9.2 (8.4-10.2) mg/dL Total Bilirubin 0.40 (0.2-1.3) mg/dL AST 35 (14-36) U/L ALT 24 (0-35) U/L Alkaline Phosphatase 94 (38-126) U/L Serum Total Protein 7.0 (6.3-8.2) g/dL Albumin 3.8 (3.5-5.0) g/dL Urine Color Yellow (Yellow) Urine Appearance Clear (Clear) Urine pH 6.5 (4.6-8.0) Ur Specific [place] 1.010 (1.005-1.030) Urine Protein Negative (Negative) Urine Glucose (UA) Negative (Negative) mg/dL Urine Ketones Negative (Negative) Urine Blood Negative (Negative) Urine Nitrite Negative (Negative) Urine Bilirubin Negative (Negative) Urine Urobilinogen 0.2 (0.2) mg/dL Ur Leukocyte Esterase Trace A (Negative) U Hyaline Cast (Auto) NONE SEEN (0-2) /LPF Urine Microscopic RBC 0-2 (0-5) /HPF Urine Microscopic WBC 0-2 (0-5) /HPF Ur Epithelial Cells Rare (None Seen) /HPF Urine Bacteria None Seen (None Seen) /HPF Urine Culture Reflexed NO (NO) Salicylates < 1.0 L (2-20) mg/dL Urine Opiates Level NEGATIVE (NEGATIVE) Ur Methadone NEGATIVE (NEGATIVE) Acetaminophen < 10 L (10-30) ug/ml Urine Barbiturates NEGATIVE (NEGATIVE) Ur Phencyclidine (PCP) NEGATIVE (NEGATIVE) Urine Amphetamine NEGATIVE (NEGATIVE) U Benzodiazepine Level NEGATIVE (NEGATIVE) Urine Cocaine NEGATIVE (NEGATIVE) Urine Marijuana (THC) NEGATIVE (NEGATIVE) Ethyl Alcohol < 10 (0-10) mg/dL 01/18/24 Range/Units 16:10 WBC 13.0 H (3.98-10.04) x10^3/uL RBC 3.56 L (3.93-5.22) x10^6/uL Hgb 10.2 L (11.2-15.7) g/dL Hct 32.8 L (34.1-44.9) % MCV 92.1 (79.4-94.8) fL MCH 28.7 (25.6-32.2) pg MCHC 31.1 L (32.2-35.5) g/dL RDW 16.0 H (11.7-14.4) % Plt Count 280 (182-369) x10^3/uL MPV 8.7 L (9.4-12.3) fL Gran % 64.6 (34.0-71.1) % Immature Gran % (Auto) 0.5 H (0.001-0.429) % Nucleat RBC Rel Count 0.0 (0.00-0.2) % Eos # (Auto) 0.21 (0.04-0.36) x10^3/uL Immature Gran # (Auto) 0.07 H (0.001-0.031) x10^3u/L Absolute Lymphs (auto) 3.22 (1.18-3.74) x10^3/uL Absolute Monos (auto) 1.04 H (0.24-0.86) x10^3/uL Absolute Nucleated RBC 0.00 (0.00-0.012) x10^3u/L Lymphocytes % 24.9 (19.3-51.7) % Monocytes % 8.0 (4.7-12.5) % Eosinophils % 1.6 (0.7-5.8) % Basophils % 0.4 (0.1-1.2) % Absolute Granulocytes 8.36 H (1.56-6.13) x10^3/uL Basophils # 0.05 (0.01-0.08) x10^3/uL Sodium (135-145) mmol/L Potassium (3.5-5.1) mmol/L Chloride (98-107) mmol/L Carbon Dioxide (22-30) mmol/L Anion Gap (5-15) MEQ/L BUN (7-17) mg/dL Creatinine (0.52-1.04) mg/dL Estimated GFR ML/MIN Glucose (74-106) mg/dL Calcium (8.4-10.2) mg/dL Total Bilirubin (0.2-1.3) mg/dL AST (14-36) U/L ALT (0-35) U/L Alkaline Phosphatase (38-126) U/L Serum Total Protein (6.3-8.2) g/dL Albumin (3.5-5.0) g/dL Urine Color (Yellow) Urine Appearance (Clear) Urine pH (4.6-8.0) Ur Specific [place] (1.005-1.030) Urine Protein (Negative) Urine Glucose (UA) (Negative) mg/dL Urine Ketones (Negative) Urine Blood (Negative) Urine Nitrite (Negative) Urine Bilirubin (Negative) Urine Urobilinogen (0.2) mg/dL Ur Leukocyte Esterase (Negative) U Hyaline Cast (Auto) (0-2) /LPF Urine Microscopic RBC (0-5) /HPF Urine Microscopic WBC (0-5) /HPF Ur Epithelial Cells (None Seen) /HPF Urine Bacteria (None Seen) /HPF Urine Culture Reflexed (NO) Salicylates (2-20) mg/dL Urine Opiates Level (NEGATIVE) Ur Methadone (NEGATIVE) Acetaminophen (10-30) ug/ml Urine Barbiturates (NEGATIVE) Ur Phencyclidine (PCP) (NEGATIVE) Urine Amphetamine (NEGATIVE) U Benzodiazepine Level (NEGATIVE) Urine Cocaine (NEGATIVE) Urine Marijuana (THC) (NEGATIVE) Ethyl Alcohol (0-10) mg/dL - Progress Progress: improved Counseled pt/family regarding: lab results, diagnosis, need for follow-up <CIERRA MOSCOSO - Last Filed: 01/18/24 18:48> - Progress Progress: improved <MAME RANDLE - Last Filed: 01/18/24 19:23> - Progress Progress Note: 01/18/24 17:26 Poison control contacted they are advised some routine labs and observe patient for 6 hours with heart rate control which should be less than 120. They advised that the patient's heart remained come back to normal within 6 hours patient can be discharged home. (CIERRA MOSCOSO) 01/18/24 19:19 I assumed care for pt from Dr Moscoso at 19:00 pt demanding to leave AMA - discussed w/ prior physician and nursing staff, pt deemed to not be suicidal discussed risks of leaving ED prior to recommended 6h window per poison control, including risk of - pt voiced understanding of her current situation and the risk leaving the ED poses to her health, still requesting to leave AMA given AMA paperwork and pt ambulated out of ED (MAME RANDLE) Medical Desision Making - Risk of complications Low Risk: Low risk of morbidity from additional dx testing or treatment <MAME RANDLE - Last Filed: 01/18/24 19:23> <CIERRA MOSCOSO - Last Filed: 01/18/24 18:48> - Departure Departure Disposition: AMA Critical Care Time: No <MAME RANDLE - Last Filed: 01/18/24 19:23> - Departure Clinical Impression: Overdose Qualifiers: Encounter type: initial encounter Injury intent: undetermined intent Qualified Code(s): T50.904A - Poisoning by unspecified drugs, medicaments and biological substances, undetermined, initial encounter Condition: Stable Referrals: CIERRA MOSCOSO MD [Primary Care Provider] - Follow up/PCP as directed
[2024-01-18] MEDS ORDERED: VISTARIL 100MG/2ML IM ONE (17:41)
[2024-01-18] MEDS ORDERED: TYLENOL EXTRA STRENGTH 500 MG ONE (17:42)
[2024-01-18] MEDS: TYLENOL EXTRA STRENGTH 500 MG PO STA (17:45)
[2024-01-18] MEDS: VISTARIL 100MG/2ML IM ONE (17:46)
[2024-01-18 18:48] VITALS: O2SAT 97
[2024-01-18 19:20] VITALS: BP 109/79; PULSE 115; RESP 30
== END 2024-01-18 19:20 | disposition left against medical advice (07) ==
LOC: ED 15:50
DX: T45.0X4A Poisoning by antiallergic and antiemetic drugs, undetermined, initial encounter (principal); Z79.899 Other long term (current) drug therapy; Z59.82 Transportation insecurity
CPT/HCPCS: 36000; 36415; 80053; 80143; 80179; 80307; 81001; 82077; 85025; 93005; 93041; 94760; 96372; 96374; 99284; J2060; J3410; A9270-GY

== ENCOUNTER 2024-05-23 11:15 | Inpatient (IN) | payer OTHER ==
--- NOTE | 2024-05-23 11:28 | ERPHSYRPT ---
- History of Present Illness Time Seen by Provider: 05/23/24 11:27 Source: patient, family Exam Limitations: no limitations Physician History: Pt had onset of cough and fever with vomiting 2 days ago - hx asthma and inhaler use. Discussed with pt and available family risks and benefits of testing/Tx including CBC, hcg, duoneb, zofran, solumedrol, , CXR, swabs for Covid, RSV, Flu and Strep, and they wish to proceed so these are ordered. Results discussed with pt and available family. Timing/Duration: day(s) Cough Quality/Degree: moderate, dry cough Possible Cause: occasional episodes, chronic episodes Modifying Factors: Improves With: albuterol inhaler Associated Symptoms: fever, cough, headache Allergies/Adverse Reactions: adhesive tape Allergy (Intermediate, Verified 05/23/24 11:27) Blisters [place] Allergy (Verified 05/23/24 11:27) paroxetine HCl [From Paxil] Adverse Reaction (Verified 05/23/24 11:27) Nausea Home Medications: Gabapentin Enacarbil [Horizant] 600 mg PO BID 03/19/21 [History] Levothyroxine Sodium 75 Mcg [Synthroid 75 Mcg] 75 mcg PO DAILY 03/19/21 [History] PANTOPRAZOLE 40 mg Tablet [Protonix 40MG Tablet] 40 mg PO QPM 06/11/21 [History] Propranolol HCl [Propranolol HCl ER] 160 mg PO DAILY 06/11/21 [History] Zolpidem Tartrate 5 mg [Ambien 5 MG Tablet] 5 mg PO HS 06/11/21 [History] Duloxetine HCl 60 mg PO DAILY 05/23/24 [History] Metoprolol Succinate 25 mg Xl* [Toprol-Xl 25MG Tablets] 25 mg PO DAILY [History] Hx Tetanus, Diphtheria Vaccination/Date Given: Yes Hx Influenza Vaccination/Date Given: No Hx Pneumococcal Vaccination/Date Given: No Travel Risk - Emerging Infectious Disease Are you exhibiting symptoms associated with any current EIDs: No - Review of Systems Constitutional: Fever, No Chills Eyes: No Symptoms Ears, Nose, & Throat: Nose Congestion Respiratory: Cough, No Dyspnea Cardiac: No Chest Pain, No Edema, No Syncope Abdominal/Gastrointestinal: Nausea, Vomiting, No Abdominal Pain, No Diarrhea Genitourinary Symptoms: No Dysuria Musculoskeletal: No Back Pain, No Neck Pain Skin: No Rash Neurological: No Dizziness, No Focal Weakness, No Sensory Changes Psychological: No Symptoms Endocrine: No Symptoms Hematologic/Lymphatic: No Symptoms Immunological/Allergic: No Symptoms All Other Systems: Reviewed and Negative - Past Medical History Pertinent Past Medical History: Yes Neurological History: Migraines, Seizures ENT History: No Pertinent History Cardiac History: Other Respiratory History: Asthma Endocrine Medical History: Hypothyroidism Musculoskeletal History: Other GI Medical History: Irritable Bowel, Crohns Disease, GERD, Gallbladder Disease History: No Pertinent History Psycho-Social History: Depression, Anxiety Female Reproductive Disorders: Other Other Medical History: Yue reports that hx of seizures was a result of medication interaction and the last time she experienced a seizure was summer. 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 Ear tubes bilat,ovarian cyst 2017. ovarian cyst removal jun 2016. colonscopy jun 2016 Significant Family History: no pertinent family hx - Female History Hx Last Menstrual Period: unsure - Social History Smoking Status: Former smoker How long have you smoked: 4 YEARS Exposure to second hand smoke: Yes Alcohol Use: None Drug Use: none Patient Lives Alone: No - Social Determinants of Health Will the patient participate in the screening: Yes Do you worry about a steady place to live?: No In the past 12 months,have you had to go without utilities?: No Transportation Issues: Yes Has anyone in your support network made you feel unsafe?: No Have you or anyone in your house had to go without enough: No - Nursing Vital Signs Nursing Vital Signs: Initial Vital Signs Temperature 96.7 F 05/23/24 11:32 Pulse Rate 133 H 05/23/24 11:32 Respiratory Rate 24 05/23/24 11:32 Blood Pressure 115/79 05/23/24 11:32 O2 Sat by Pulse Oximetry 93 L 05/23/24 11:32 Pain Scale Pain Intensity 5 - Physical Exam General Appearance: no apparent distress, alert Eye Exam: PERRL/EOMI, eyes nml inspection Ears, Nose, Throat Exam: normal ENT inspection, TMs normal, moist mucous membranes, pharyngeal erythema Neck Exam: normal inspection, non-tender, supple, full range of motion Respiratory Exam: normal breath sounds, airway intact, rhonchi, No respiratory distress, No accessory muscle use Cardiovascular Exam: regular rate/rhythm, normal heart sounds, normal peripheral pulses Gastrointestinal/Abdomen Exam: soft, No tenderness, No distention, No mass, No guarding, No pulsatile mass, No rebound Pelvic Exam: deferred Rectal Exam: deferred Back Exam: normal inspection, No CVA tenderness, No vertebral tenderness Extremity Exam: normal inspection, normal range of motion Neurologic Exam: alert, oriented x 3, cooperative, normal mood/affect, sensation nml, No motor deficits Skin Exam: normal color, warm, dry, No rash Lymphatic Exam: No adenopathy SpO2 Interpretation: borderline oxygenation SpO2: 93 O2 Delivery: Room Air - Course Nursing assessment & vital signs reviewed: Yes EKG Interpreted by Me: Sinus Tach, NORMAL AXIS, NORMAL INTERVALS, NORMAL QRS, Non-specific ST Changes - Radiology Exams Chest X-ray Interpretation: Interpreted by me, Infiltrates (bilateral hilar infiltrates) Ordered Tests: Active Orders 24 hr Category Date Time Status EKG-ER Only STAT Care 05/23/24 14:10 Active Pulse Oximetry (ED) STAT Care 05/23/24 11:40 Active CHEST 2 VIEWS (PA AND LAT) Stat Exams 05/23/24 11:50 Taken CBC W DIFF Stat Lab 05/23/24 12:08 Completed CMP Stat Lab 05/23/24 13:00 Completed HCG QUALITATIVE, SERUM Stat Lab 05/23/24 12:08 Completed Manual Differential NC Stat Lab 05/23/24 12:08 Completed Respiratory Therapy Assessment DAILY RT 05/23/24 12:17 Active Medication Summary Discontinued Medications Generic Name Dose Route Start Last Admin Trade Name Freq PRN Reason Stop Dose Admin Hydrocodone Bitart/Acetaminophen 10 ml 05/23/24 13:53 05/23/24 13:58 Hydrocodone/Acetaminophen 5 Ml Udcup PO 05/23/24 13:54 10 ml STAT STA Administration Hydrocodone Bitart/Acetaminophen Confirm 05/23/24 13:57 Hydrocodone/Acetaminophen 5 Ml Udcup Administered 05/23/24 13:58 Dose 10 ml .ROUTE .STK-MED ONE Albuterol/Ipratropium 3 ml 05/23/24 11:40 05/23/24 11:59 Ipratropium/Albuterol Sulfate 3 Ml Ampul.Neb IH 05/23/24 11:41 3 ml STAT ONE Administration Albuterol/Ipratropium Confirm 05/23/24 11:48 Ipratropium/Albuterol Sulfate 3 Ml Ampul.Neb Administered 05/23/24 11:49 Dose 3 ml IH .STK-MED ONE Methylprednisolone Sodium 0 mg 05/23/24 11:40 05/23/24 11:55 Succinate 125 mg/ Sterile IV 05/23/24 11:41 125 mg Water 2 ml STAT ONE Administration Sodium Chloride 1,000 mls @ 999 mls/hr 05/23/24 11:51 05/23/24 13:46 Sodium Chloride 0.9% 1000 Ml IV 05/23/24 12:51 Infused .Q1H1M STA Infusion Sodium Chloride Confirm 05/23/24 11:52 Sodium Chloride 0.9% 1000 Ml Administered 05/23/24 11:53 Dose 1,000 mls @ ud .ROUTE .STK-MED ONE Methylprednisolone Sodium Succinate Confirm 05/23/24 11:52 Methylprednis Sod Succ 125 Mg/2 Ml Vial Administered 05/23/24 11:53 Dose 125 mg .ROUTE .STK-MED ONE Methylprednisolone Sodium Succinate Confirm 05/23/24 12:28 Methylprednis Sod Succ 125 Mg/2 Ml Vial Administered 05/23/24 12:29 Dose 125 mg .ROUTE .STK-MED ONE Ondansetron HCl 4 mg 05/23/24 11:40 05/23/24 11:55 Ondansetron Hcl 4 Mg/2 Ml Vial IV 05/23/24 11:41 4 mg STAT ONE Administration Ondansetron HCl Confirm 05/23/24 11:52 Ondansetron Hcl 4 Mg/2 Ml Vial Administered 05/23/24 11:53 Dose 4 mg .ROUTE .STK-MED ONE Ondansetron HCl Confirm 05/23/24 12:28 Ondansetron Hcl 4 Mg/2 Ml Vial Administered 05/23/24 12:29 Dose 4 mg .ROUTE .STK-MED ONE Sterile Water Confirm 05/23/24 11:52 Water For Injection,Sterile 10 Ml Vial Administered 05/23/24 11:53 Dose 10 ml IJ .STK-MED ONE Sterile Water Confirm 05/23/24 12:28 Water For Injection,Sterile 10 Ml Vial Administered 05/23/24 12:29 Dose 10 ml IJ .STK-MED ONE Lab/Rad Data: Laboratory Result Diagrams 05/23/24 12:08 05/23/24 13:00 Laboratory Results 05/23/24 05/23/24 05/23/24 Range/Units 13:00 12:15 12:08 WBC (3.98-10.04) x10^3/uL RBC (3.93-5.22) x10^6/uL Hgb (11.2-15.7) g/dL Hct (34.1-44.9) % MCV (79.4-94.8) fL MCH (25.6-32.2) pg MCHC (32.2-35.5) g/dL RDW (11.7-14.4) % Plt Count (182-369) x10^3/uL MPV (9.4-12.3) fL Segmented Neutrophils (34.0-71.1) % Lymphocytes (Manual) (19.3-51.7) % Monocytes (Manual) (4.7-12.5) % Platelet Estimate (NORMAL) RBC Morphology Macrocytosis Sodium 134 L (135-145) mmol/L Potassium 4.0 (3.5-5.1) mmol/L Chloride 105 (98-107) mmol/L Carbon Dioxide 18 L (22-30) mmol/L Anion Gap 14.2 (5-15) MEQ/L BUN 3 L (7-17) mg/dL Creatinine 0.84 (0.52-1.04) mg/dL Estimated GFR 96.4 ML/MIN Glucose 134 H (74-106) mg/dL Calcium 9.3 (8.4-10.2) mg/dL Total Bilirubin 0.60 (0.2-1.3) mg/dL AST 109 H (14-36) U/L ALT 36 H (0-35) U/L Alkaline Phosphatase 175 H (38-126) U/L Serum Total Protein 7.7 (6.3-8.2) g/dL Albumin 4.1 (3.5-5.0) g/dL Serum HCG, Qual NEGATIVE (NEGATIVE) Influenza Type A Ag POSITIVE A (NEGATIVE) Influenza Type B Ag NEGATIVE (NEGATIVE) RSV (PCR) NEGATIVE (NEGATIVE) SARS-CoV-2 (PCR) NEGATIVE (NEGATIVE) Group A Strep Antibody (NEGATIVE) 05/23/24 05/23/24 Range/Units 12:08 12:08 WBC 12.2 H (3.98-10.04) x10^3/uL RBC 4.25 (3.93-5.22) x10^6/uL Hgb 13.0 (11.2-15.7) g/dL Hct 40.3 (34.1-44.9) % MCV 94.8 (79.4-94.8) fL MCH 30.6 (25.6-32.2) pg MCHC 32.3 (32.2-35.5) g/dL RDW 19.8 H (11.7-14.4) % Plt Count 328 (182-369) x10^3/uL MPV 8.4 L (9.4-12.3) fL Segmented Neutrophils 87 H (34.0-71.1) % Lymphocytes (Manual) 7 L (19.3-51.7) % Monocytes (Manual) 6 (4.7-12.5) % Platelet Estimate NORMAL (NORMAL) RBC Morphology ABNORMAL Macrocytosis 1+ Sodium (135-145) mmol/L Potassium (3.5-5.1) mmol/L Chloride (98-107) mmol/L Carbon Dioxide (22-30) mmol/L Anion Gap (5-15) MEQ/L BUN (7-17) mg/dL Creatinine (0.52-1.04) mg/dL Estimated GFR ML/MIN Glucose (74-106) mg/dL Calcium (8.4-10.2) mg/dL Total Bilirubin (0.2-1.3) mg/dL AST (14-36) U/L ALT (0-35) U/L Alkaline Phosphatase (38-126) U/L Serum Total Protein (6.3-8.2) g/dL Albumin (3.5-5.0) g/dL Serum HCG, Qual (NEGATIVE) Influenza Type A Ag (NEGATIVE) Influenza Type B Ag (NEGATIVE) RSV (PCR) (NEGATIVE) SARS-CoV-2 (PCR) (NEGATIVE) Group A Strep Antibody NOT DETECTED (NEGATIVE) - Progress Progress: improved, re-examined Air Movement: good Progress Note: 05/23/24 14:11 pt is requiring O2 and never did before. Discussed with pt and Dr. Owen and all agree best to place pt in house for Tx but also checking EKG, and chemistires. Blood Culture(s) Obtained: No Antibiotics given: Yes Discussed with Dr.: Other (Dr. Owen) Will see patient in: hospital (observation) Counseled pt/family regarding: lab results, diagnosis, need for follow-up, rad results Medical Desision Making - Independent Historian Additional History obtained from: Family - Discussion of managment Care discussed with:: hospitalist Reviewed:: Test results, Need for additional workup Agreed on:: Treatment plan, need for follow-up, decision to admit, place in obs Will see patient: in hospital - Diagnostic Testing Diagnostic test were ordered, analyzed, and reviewed by me: Yes Radiological Interpretation: Interpreted by me - Risk of complications The pt has a mod risk of morbidity or mortality based on: Need for prescription drug management The pt has a high risk of morbidity or mortality based on: Decision regarding hospitilization or escalation of hosp level of care - Departure Departure Disposition: Observation Clinical Impression: flu a, Hypoxia, Pulmonary infiltrates Condition: Good Critical Care Time: No Referrals: CIERRA MOSCOSO MD [Primary Care Provider] - Follow up/PCP as directed Instructions: Cough, Adult (DC)
[2024-05-23] MEDS ORDERED: DUONEB 0.5-3 MG/3 ml Neb IH ONE ×2 (11:48→15:53)
[2024-05-23] MEDS ORDERED: solu-MEDROL ONE ×3 (11:52→20:09)
[2024-05-23] MEDS ORDERED: Zofran 4 MG/2 ML VIAL ONE ×2 (11:52→12:28)
[2024-05-23] MEDS ORDERED: Sterile H2O 10 ml IJ ONE ×3 (11:52→20:10)
[2024-05-23] MEDS ORDERED: Sodium Chloride 0.9% 1000 ML 1,000 ML ONE (11:52)
[2024-05-23] MEDS: solu-MEDROL 125 MG, Sterile H2O 10 ml 2 ML IV ONE (11:55)
[2024-05-23] MEDS: Sodium Chloride 0.9% 1000 ML 1,000 ML IV STA (11:55)
[2024-05-23] MEDS: Zofran 4 MG/2 ML VIAL IV ONE (11:55)
[2024-05-23] MEDS: DUONEB 0.5-3 MG/3 ml Neb IH ONE (11:59)
[2024-05-23 12:37] LABS: Hematocrit 40.3 % (34.1-44.9); Mean Cell Volume 94.8 fL (79.4-94.8); Mean Corpuscular Hemoglobin 30.6 pg (25.6-32.2); Mean Corpuscular Hgb Concent. 32.3 g/dL (32.2-35.5); Mean Platelet Volume 8.4 fL (9.4-12.3); Platelet Count 328 x10^3/uL (182-369); Red Blood Count 4.25 x10^6/uL (3.93-5.22); Red Cell Distribution Width 19.8 % (11.7-14.4); White Blood Count 12.2 x10^3/uL (3.98-10.04)
[2024-05-23 12:51] LABS: HCG SERUM TEST NEGATIVE (NEGATIVE)
[2024-05-23 13:16] LABS: INFLUENZA B NEGATIVE (NEGATIVE); RESPIRATORY SYNCTIAL VIRUS NEGATIVE (NEGATIVE); SARS-CoV-2 Xpert Express NEGATIVE (NEGATIVE)
[2024-05-23 13:21] LABS: INFLUENZA A POSITIVE (NEGATIVE)
[2024-05-23] MEDS ORDERED: HYDROCODONE-ACETAMIN 2.5-108/5 ML SOLUTION ONE (13:57)
[2024-05-23] MEDS: HYDROCODONE-ACETAMIN 2.5-108/5 ML SOLUTION PO STA (13:58)
[2024-05-23 13:59] LABS: Lymphocytes 7 % (19.3-51.7); Monocyte 6 % (4.7-12.5); Neutrophils 87 % (34.0-71.1); Platelet Estimate NORMAL (NORMAL); Total Cells Counted 100
[2024-05-23 14:00] LABS: Macrocytosis 1+
[2024-05-23 14:21] LABS: ALBUMIN 4.1 g/dL (3.5-5.0); ANION GAP 14.2 MEQ/L (5-15); BILIRUBIN,TOTAL 0.6 mg/dL (0.2-1.3); Calcium 9.3 mg/dL (8.4-10.2); Creatinine 1 0.84 mg/dL (0.52-1.04); EST GLOMERULAR FILTRATION RATE 96.4 ML/MIN; Total Protein 7.7 g/dL (6.3-8.2)
--- NOTE | 2024-05-23 15:20 | PCM.HP ---
History of Present Illness - Chief Complaint Chief Complaint: Flu A Date: 05/23/24 History of Present Illness: Ms. Washington is a 28-year-old female with PMHX of Irritable bowel disease, Crohn's Disease, GERD, gallbladder Disease, migraines, seizures, asthma, hypothyroidism, anxiety, depression, and chronic morbid obesity. Pt came to the ER today for the onset of a cough and fever with vomiting 2 days ago. Pt + for Flu A. She is tachycardic and tachypneic. CXR pending. WBC 12.2, CO2 18. In ER 1LNS fluid bolus, Zofran, steroids, and duoneb were provided. O2 93% room air. - Review of Systems Constitutional: No Fever, No Chills Eyes: No Symptoms Ears, Nose, & Throat: No Symptoms Respiratory: Cough, Short Of Breath, Wheezing Cardiac: No Chest Pain, No Edema, No Syncope Abdominal/Gastrointestinal: No Abdominal Pain, No Nausea, No Vomiting, No Diarrhea Genitourinary Symptoms: No Dysuria Musculoskeletal: No Back Pain, No Neck Pain Skin: Rash (abd folds, yeast infection) Neurological: No Dizziness, No Focal Weakness, No Sensory Changes Psychological: No Symptoms Endocrine: No Symptoms Hematologic/Lymphatic: No Symptoms Immunological/Allergic: No Symptoms Medications & Allergies Home Medications: Home Medication List Gabapentin Enacarbil [Horizant] 600 mg PO BID 03/19/21 [History Confirmed 05/23/24] Levothyroxine Sodium 75 Mcg [Synthroid 75 Mcg] 75 mcg PO DAILY 03/19/21 [History Confirmed 05/23/24] PANTOPRAZOLE 40 mg Tablet [Protonix 40MG Tablet] 40 mg PO QPM 06/11/21 [History Confirmed 05/23/24] Propranolol HCl [Propranolol HCl ER] 160 mg PO DAILY 06/11/21 [History Confirmed 05/23/24] Zolpidem Tartrate 5 mg [Ambien 5 MG Tablet] 5 mg PO HS 06/11/21 [History Confirmed 05/23/24] Potassium Chloride [Klor-Con M20] 20 meq PO DAILY #30 cap 06/13/21 [Rx Confirmed 05/23/24] Duloxetine HCl 60 mg PO DAILY 05/23/24 [History Confirmed 05/23/24] Metoprolol Succinate 25 mg Xl* [Toprol-Xl 25MG Tablets] 25 mg PO DAILY 05/23/24 [History Confirmed 05/23/24] Allergies/Adverse Reactions: Allergies Allergy/AdvReac Type Severity Reaction Status Date / Time adhesive tape Allergy Intermediate Blisters Verified 05/23/24 11:27 [place] Allergy Verified 05/23/24 11:27 paroxetine HCl [From Paxil] AdvReac Nausea Verified 05/23/24 11:27 - Past Medical History Past Medical History: Yes Neurological History: Migraines, Seizures ENT History: No Pertinent History Cardiac History: Other Respiratory History: Asthma Endocrine Medical History: Hypothyroidism Musculoskelatal History: Other GI Medical History: Irritable Bowel, Crohns Disease, GERD, Gallbladder Disease History: No Pertinent History Pyscho-Social History: Depression, Anxiety Reproductive Disorders: Other Comment: Yue reports that hx of seizures was a result of medication interaction and the last time she experienced a seizure was summer. 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 Ear tubes bilat,ovarian cyst 2017. ovarian cyst removal jun 2016. colonscopy jun 2016 Significant Family History: no pertinent family hx - Social History Smoking Status: Former smoker How long have you smoked: 4 YEARS Exposure to second hand smoke: Yes Alcohol: Occasionally Drug Use: none - Social Determinants of Health Will the patient participate in the screening: Yes Do you worry about a steady place to live?: No Do you have any problems with any of the following?: No known problems In the past 12 months,have you had to go without utilities?: No Have you or anyone in your house had to go without enough: No Transportation Issues: Yes Has anyone in your support network made you feel unsafe?: No - Physical Exam Vital Signs: Vital Signs - 24 hr Temp Pulse Resp BP Pulse Ox 05/23/24 14:47 93 L 05/23/24 14:09 140 H 18 120/70 86 L 05/23/24 13:46 148 H 24 90 L 05/23/24 13:00 138 H 24 89 L 05/23/24 12:27 93 L 05/23/24 12:17 148 H 22 90 L 05/23/24 12:10 151 H 22 115/79 97 05/23/24 11:33 24 93 L 05/23/24 11:32 96.7 F 133 H 24 115/79 93 L General Appearance: mild distress, alert, obese Neurologic Exam: alert, oriented x 3, cooperative, normal mood/affect, nml cerebellar function, nml station & gait, sensation nml, No motor deficits Eye Exam: PERRL/EOMI, eyes nml inspection Ears, Nose, Throat Exam: normal ENT inspection, TMs normal, pharynx normal, moist mucous membranes Neck Exam: normal inspection, non-tender, supple, full range of motion Respiratory Exam: normal breath sounds, wheezing (RLL), No respiratory distress Cardiovascular Exam: regular rate/rhythm, normal heart sounds, normal peripheral pulses Gastrointestinal/Abdomen Exam: soft, normal bowel sounds, No tenderness, No mass Back Exam: normal inspection, normal range of motion, No CVA tenderness, No vertebral tenderness Extremity Exam: normal inspection, normal range of motion, pelvis stable Skin Exam: normal color, warm, dry, No rash Lymphatic Exam: No adenopathy Results - Labs Lab/Micro Results: Lab Results-Last 24 Hours 05/23/24 05/23/24 05/23/24 Range/Units 12:08 12:08 12:08 WBC 12.2 H (3.98-10.04) x10^3/uL RBC 4.25 (3.93-5.22) x10^6/uL Hgb 13.0 (11.2-15.7) g/dL Hct 40.3 (34.1-44.9) % MCV 94.8 (79.4-94.8) fL MCH 30.6 (25.6-32.2) pg MCHC 32.3 (32.2-35.5) g/dL RDW 19.8 H (11.7-14.4) % Plt Count 328 (182-369) x10^3/uL MPV 8.4 L (9.4-12.3) fL Segmented Neutrophils 87 H (34.0-71.1) % Lymphocytes (Manual) 7 L (19.3-51.7) % Monocytes (Manual) 6 (4.7-12.5) % Platelet Estimate NORMAL (NORMAL) RBC Morphology ABNORMAL Macrocytosis 1+ Sodium (135-145) mmol/L Potassium (3.5-5.1) mmol/L Chloride (98-107) mmol/L Carbon Dioxide (22-30) mmol/L Anion Gap (5-15) MEQ/L BUN (7-17) mg/dL Creatinine (0.52-1.04) mg/dL Estimated GFR ML/MIN Glucose (74-106) mg/dL Calcium (8.4-10.2) mg/dL Total Bilirubin (0.2-1.3) mg/dL AST (14-36) U/L ALT (0-35) U/L Alkaline Phosphatase (38-126) U/L Serum Total Protein (6.3-8.2) g/dL Albumin (3.5-5.0) g/dL Serum HCG, Qual NEGATIVE (NEGATIVE) Influenza Type A Ag (NEGATIVE) Influenza Type B Ag (NEGATIVE) RSV (PCR) (NEGATIVE) SARS-CoV-2 (PCR) (NEGATIVE) Group A Strep Antibody NOT DETECTED (NEGATIVE) 05/23/24 05/23/24 Range/Units 12:15 13:00 WBC (3.98-10.04) x10^3/uL RBC (3.93-5.22) x10^6/uL Hgb (11.2-15.7) g/dL Hct (34.1-44.9) % MCV (79.4-94.8) fL MCH (25.6-32.2) pg MCHC (32.2-35.5) g/dL RDW (11.7-14.4) % Plt Count (182-369) x10^3/uL MPV (9.4-12.3) fL Segmented Neutrophils (34.0-71.1) % Lymphocytes (Manual) (19.3-51.7) % Monocytes (Manual) (4.7-12.5) % Platelet Estimate (NORMAL) RBC Morphology Macrocytosis Sodium 134 L (135-145) mmol/L Potassium 4.0 (3.5-5.1) mmol/L Chloride 105 (98-107) mmol/L Carbon Dioxide 18 L (22-30) mmol/L Anion Gap 14.2 (5-15) MEQ/L BUN 3 L (7-17) mg/dL Creatinine 0.84 (0.52-1.04) mg/dL Estimated GFR 96.4 ML/MIN Glucose 134 H (74-106) mg/dL Calcium 9.3 (8.4-10.2) mg/dL Total Bilirubin 0.60 (0.2-1.3) mg/dL AST 109 H (14-36) U/L ALT 36 H (0-35) U/L Alkaline Phosphatase 175 H (38-126) U/L Serum Total Protein 7.7 (6.3-8.2) g/dL Albumin 4.1 (3.5-5.0) g/dL Serum HCG, Qual (NEGATIVE) Influenza Type A Ag POSITIVE A (NEGATIVE) Influenza Type B Ag NEGATIVE (NEGATIVE) RSV (PCR) NEGATIVE (NEGATIVE) SARS-CoV-2 (PCR) NEGATIVE (NEGATIVE) Group A Strep Antibody (NEGATIVE) - Radiology Impressions Radiology Exams & Impressions: Radiology Procedures Category Date Time Status CHEST 2 VIEWS (PA AND LAT) Stat Exams 05/23/24 11:50 Taken - Other Procedures and Tests Respiratory Therapy 05/23/24 15:07 Oxygen Nasal Cannula 2 lpm Respiratory Therapy Consult ONCE Assessment/Plan (1) Flu Current Visit: Yes Status: Acute Code(s): J11.1 - FLU DUE TO UNIDENTIFIED INFLUENZA VIRUS W OTH RESP MANIFEST (2) History of asthma Current Visit: Yes Status: Acute Code(s): Z87.09 - PERSONAL HISTORY OF OTHER DISEASES OF THE RESPIRATORY SYSTEM (3) Yeast dermatitis Current Visit: Yes Status: Acute Code(s): B37.2 - CANDIDIASIS OF SKIN AND NAIL (4) Morbid obesity Current Visit: Yes Status: Chronic Code(s): E66.01 - MORBID (SEVERE) OBESITY DUE TO EXCESS CALORIES (5) Anxiety and depression Current Visit: Yes Status: Chronic Code(s): F41.9 - ANXIETY DISORDER, UNSPECIFIED; F32.A - DEPRESSION, UNSPECIFIED (6) Hypothyroidism Current Visit: Yes Status: Chronic Code(s): E03.9 - HYPOTHYROIDISM, UNSPECIFIED (7) Tachycardia Current Visit: Yes Status: Acute Code(s): R00.0 - TACHYCARDIA, UNSPECIFIED (8) HTN (hypertension) Current Visit: Yes Status: Acute Assessment & Plan: Flu A - Tamiflu started - Continue IVF, steroids, duonebs, - Antiemetic, Tylenol PRN - CBC, CMP reviewed - RA 93% - WBC 12.2 - tylenol, heating pad for abd pain 2:2 coughing - Tessalon TID PRN cough - 2lNC 93%- baseline RA - RT eval and treat HX of asthma -Adds to complexity -See the above plan for flu Yeast dermatitis -nystatin powder -pillowcases between abd. folds Morbid obesity -Advised diet and exercise control Anxiety and Depression -Continue home meds Hypothyroidism -Continue Synthroid Tachycardia - Tele - restart home meds HTN - Restart home meds - BP stable VTE: Lovenox PPI: Protonix Next of KIN: Parents- [employer] D/C plan: 1-2 days Code status: Full Code(s): I10 - ESSENTIAL (PRIMARY) HYPERTENSION
[2024-05-23] MEDS: DUONEB 0.5-3 MG/3 ml Neb IH SCH (15:58)
[2024-05-23] MEDS: Tessalon Perles 100 MG PO PRN (16:21)
[2024-05-23] MEDS: Sodium Chloride 0.9% 1000 ML 1,000 ML IV SCH (16:21)
[2024-05-23] MEDS: NYSTOP POWDER 15 GM TP SCH (16:53)
[2024-05-23] MEDS: Toprol-Xl 25MG Tablets PO ONE (17:12)
--- NOTE | 2024-05-23 18:24 | XRAY ---
Indication: Cough. Short of breath. Comparison: July 06, 2021 PA/lateral chest remains inflated and clear. Heart and mediastinal structures within normal limits. Bony thorax intact. Impression: Continued nonacute chest.
[2024-05-23] MEDS: Robitussin 100 MG/5 ML PO PRN (20:02)
[2024-05-23] MEDS: Ambien 5 MG Tablet PO SCH (20:08)
[2024-05-23] MEDS: GABAPENTIN ENACARBIL 600 MG PO SCH (20:08)
[2024-05-23] MEDS: Tamiflu 75MG Capsule PO SCH (20:08)
[2024-05-23] MEDS: Protonix 40MG Tablet PO SCH (20:08)
[2024-05-23] MEDS: solu-MEDROL 40 MG, Sterile H2O 10 ml 1 ML IV SCH (20:10)
[2024-05-23] MEDS ORDERED: Xopenex 1.25 MG/0.5 ML UD NEBULE IH ONE (22:13)
[2024-05-23] MEDS: Xopenex 1.25 MG/0.5 ML UD NEBULE IH PRN (22:15)
[2024-05-24 00:14] LABS: A-aADO2 152; ABG HEMOGLOBIN 11.7; ABG POTASSIUM 3.5 (3.5-5.1); ARTERIAL BLD GAS O2 SATURATION 95.8 % (95-100); ARTERIAL BLOOD GAS BASE EXCESS -6.8 (-2.0-2.0); ARTERIAL BLOOD GAS FIO2 36 %; ARTERIAL BLOOD GAS PCO2 29 mmHg (35-45); ARTERIAL BLOOD GAS PO2 68 mmHg (75-100); ARTERIAL BLOOD GAS pH 7.38 (7.35-7.45); CARBOXYHEMOGLOBIN 1.4 % THgb (0.0-6.9); HCO3- 17.2 (22-28); HGB O2 SAT 93.5 g/dF (94-100); Methhemoglobin 0.9 % (1.4-1.5); paO2 pAO1 0.31
[2024-05-24 00:15] LABS: ABG SITE LEFT RADIAL; ALLEN TEST OK? YES
[2024-05-24] MEDS: TYLENOL 325 MG PO PRN (01:31)
[2024-05-24] MEDS ORDERED: Sodium Chloride 3 ML UD NEBULES IH ONE (02:54)
[2024-05-24] MEDS: NORCO 5/325 MG PO ONE (04:05)
--- NOTE | 2024-05-24 05:28 | PCM.NOTE ---
Date and Time: 05/24/24524 Subjective Assessment: Ms. Washington is a 28-year-old female with PMHX of Irritable bowel disease, Crohn's Disease, GERD, gallbladder Disease, migraines, seizures, asthma, hypothyroidism, anxiety, depression, and chronic morbid obesity admitted 05/23/24 with Flu A after presenting to ED with a two day history of cough, fever, and vomiting. On presentation patient was tachycardic and tachypneic. EKG Sinus Tach, NORMAL AXIS, NORMAL INTERVALS, NORMAL QRS, Non-specific ST Changes. CXR with no acute findings. Labs remarkable for leukocytosis with WBC 12.2, CO2 18. In ER 1LNS fluid bolus, Zofran, steroids, and duoneb were provided. IP treatment with tamiflu, solumedrol, IVF, and supportive care. 05/24/24: Overnight events noted of increased use of oxygen. Patient now on HF 40L at 50% FiO2. Patient endorses increased dyspnea and cough with pain in her abdomen and back from coughing. Patient also endorsing diarrhea. Will order CT Chest w/ PE protocol today. Continue treatment for fluA until CT report. <SEUN PAREDES - Last Filed: 05/24/24 12:01> Date and Time: 05/24/242024 <BOONE PATEL - Last Filed: 05/24/24 20:28> - Review of Systems Constitutional: Weakness Eyes: No Symptoms Ears, Nose, & Throat: No Symptoms Respiratory: Cough, Short Of Breath Cardiac: No Symptoms Abdominal/Gastrointestinal: Abdominal Pain, Nausea, Diarrhea Genitourinary Symptoms: No Symptoms Musculoskeletal: Back Pain Skin: No Symptoms Neurological: No Symptoms Psychological: No Symptoms Endocrine: No Symptoms Hematologic/Lymphatic: No Symptoms Immunological/Allergic: No Symptoms <SEUN PAREDES - Last Filed: 05/24/24 12:01> Objective Exam General Appearance: no apparent distress Neurologic Exam: alert, oriented x 3, cooperative Skin Exam: normal color Wound Assessment: Skin/Wound Assessment Wound/Incision Assessment Start: 05/23/24 17:53 Text: Status: Active Freq: Protocol: Document 05/23/24 17:53 RB (Rec: 05/23/24 17:55 RB [id number]) Wound/Incision Assessment Lower Anterior Abdomen Wound Assessment Admission Wound Type gaulding Dressing Status Dry & Intact Drainage Amount None Drainage Odor Foul Odor Surrounding Tissue [place] Comment nystatin powder and pillow cases placed to keep dry Anterior Abdomen Wound Assessment Admission Wound Type scabs Wound Stage Non Pressure Wound Dressing Status Dry & Intact Drainage Amount None Drainage Odor None/Absent Comment scattered healing wounds noted to anterior abd, pt reports gary from a heating pad, open to air, no bleeding or drainage noted Eye Exam: PERRL Ears, Nose, Throat Exam: normal ENT inspection Neck Exam: normal inspection Respiratory Exam: wheezing <SEUN PAREDES - Last Filed: 05/24/24 12:01> Wound Assessment: Skin/Wound Assessment Wound/Incision Assessment Start: 05/23/24 17:53 Text: Status: Active Freq: Protocol: Document 05/23/24 17:53 RB (Rec: 05/23/24 17:55 RB [id number]) Wound/Incision Assessment Lower Anterior Abdomen Wound Assessment Admission Wound Type gaulding Dressing Status Dry & Intact Drainage Amount None Drainage Odor Foul Odor Surrounding Tissue [place] Comment nystatin powder and pillow cases placed to keep dry Anterior Abdomen Wound Assessment Admission Wound Type scabs Wound Stage Non Pressure Wound Dressing Status Dry & Intact Drainage Amount None Drainage Odor None/Absent Comment scattered healing wounds noted to anterior abd, pt reports gary from a heating pad, open to air, no bleeding or drainage noted <BOONE PATEL - Last Filed: 05/24/24 20:28> Objective Data Vital Signs: Vital Signs - 24 hr Temp Pulse Resp BP Pulse Ox 05/24/24 03:00 97.7 F 127 H 23 109/72 94 L 05/24/24 02:06 97 05/23/24 23:00 98.2 F 140 H 24 104/45 92 L 05/23/24 22:15 135 H 30 H 90 L 05/23/24 19:28 98.2 F 138 H 20 107/64 91 L 05/23/24 19:04 137 H 32 H 93 L 05/23/24 16:31 135 H 44 H 92 L 05/23/24 16:00 96.7 F 138 H 20 132/83 94 L 05/23/24 15:14 96.7 F 138 H 20 132/83 94 L 05/23/24 14:47 93 L 05/23/24 14:09 140 H 18 120/70 86 L 05/23/24 13:46 148 H 24 90 L 05/23/24 13:00 138 H 24 89 L 05/23/24 12:27 93 L 05/23/24 12:17 148 H 22 90 L 05/23/24 12:10 151 H 22 115/79 97 05/23/24 11:33 24 93 L 05/23/24 11:32 96.7 F 133 H 24 115/79 93 L Pain Assessment - Last Documented Pain Intensity 4 Pain Scale Used 0-10 Pain Scale Intake and Output: Intake & Output 05/21/24 05/22/24 05/23/24 05/24/24 11:59 11:59 11:59 11:59 Intake Total 2564 Balance 2564 Weight 104.326 kg 104.5 kg Lab Results: Lab Results-Last 24 Hours 05/23/24 05/23/24 05/23/24 Range/Units 12:08 12:08 12:08 WBC 12.2 H (3.98-10.04) x10^3/uL RBC 4.25 (3.93-5.22) x10^6/uL Hgb 13.0 (11.2-15.7) g/dL Hct 40.3 (34.1-44.9) % MCV 94.8 (79.4-94.8) fL MCH 30.6 (25.6-32.2) pg MCHC 32.3 (32.2-35.5) g/dL RDW 19.8 H (11.7-14.4) % Plt Count 328 (182-369) x10^3/uL MPV 8.4 L (9.4-12.3) fL Segmented Neutrophils 87 H (34.0-71.1) % Lymphocytes (Manual) 7 L (19.3-51.7) % Monocytes (Manual) 6 (4.7-12.5) % Platelet Estimate NORMAL (NORMAL) RBC Morphology ABNORMAL Macrocytosis 1+ Puncture Site pCO2 (35-45) mmHg pO2 (75-100) mmHg Base Excess (-2.0-2.0) O2 Saturation (94-100) g/dF ABG pH (7.35-7.45) ABG HCO3 (22-28) ABG O2 Sat (Measured) (95-100) % Syd Test A-a Gradient a/A Ratio Hemoglobin Carboxyhemoglobin (0.0-6.9) % THgb Methemoglobin (1.4-1.5) % Temperature C POC O2 Flow Rate % Sodium (135-145) mmol/L Potassium (3.5-5.1) mmol/L Chloride (98-107) mmol/L Carbon Dioxide (22-30) mmol/L Anion Gap (5-15) MEQ/L BUN (7-17) mg/dL Creatinine (0.52-1.04) mg/dL Estimated GFR ML/MIN Glucose (74-106) mg/dL POC Glucometer (74 to 106) mg/dL Calcium (8.4-10.2) mg/dL Total Bilirubin (0.2-1.3) mg/dL AST (14-36) U/L ALT (0-35) U/L Alkaline Phosphatase (38-126) U/L Serum Total Protein (6.3-8.2) g/dL Albumin (3.5-5.0) g/dL Serum HCG, Qual NEGATIVE (NEGATIVE) Influenza Type A Ag (NEGATIVE) Influenza Type B Ag (NEGATIVE) RSV (PCR) (NEGATIVE) SARS-CoV-2 (PCR) (NEGATIVE) Group A Strep Antibody NOT DETECTED (NEGATIVE) 05/23/24 05/23/24 05/23/24 Range/Units 12:15 13:00 16:10 WBC (3.98-10.04) x10^3/uL RBC (3.93-5.22) x10^6/uL Hgb (11.2-15.7) g/dL Hct (34.1-44.9) % MCV (79.4-94.8) fL MCH (25.6-32.2) pg MCHC (32.2-35.5) g/dL RDW (11.7-14.4) % Plt Count (182-369) x10^3/uL MPV (9.4-12.3) fL Segmented Neutrophils (34.0-71.1) % Lymphocytes (Manual) (19.3-51.7) % Monocytes (Manual) (4.7-12.5) % Platelet Estimate (NORMAL) RBC Morphology Macrocytosis Puncture Site pCO2 (35-45) mmHg pO2 (75-100) mmHg Base Excess (-2.0-2.0) O2 Saturation (94-100) g/dF ABG pH (7.35-7.45) ABG HCO3 (22-28) ABG O2 Sat (Measured) (95-100) % Syd Test A-a Gradient a/A Ratio Hemoglobin Carboxyhemoglobin (0.0-6.9) % THgb Methemoglobin (1.4-1.5) % Temperature C POC O2 Flow Rate % Sodium 134 L (135-145) mmol/L Potassium 4.0 (3.5-5.1) mmol/L Chloride 105 (98-107) mmol/L Carbon Dioxide 18 L (22-30) mmol/L Anion Gap 14.2 (5-15) MEQ/L BUN 3 L (7-17) mg/dL Creatinine 0.84 (0.52-1.04) mg/dL Estimated GFR 96.4 ML/MIN Glucose 134 H (74-106) mg/dL POC Glucometer 142 H (74 to 106) mg/dL Calcium 9.3 (8.4-10.2) mg/dL Total Bilirubin 0.60 (0.2-1.3) mg/dL AST 109 H (14-36) U/L ALT 36 H (0-35) U/L Alkaline Phosphatase 175 H (38-126) U/L Serum Total Protein 7.7 (6.3-8.2) g/dL Albumin 4.1 (3.5-5.0) g/dL Serum HCG, Qual (NEGATIVE) Influenza Type A Ag POSITIVE A (NEGATIVE) Influenza Type B Ag NEGATIVE (NEGATIVE) RSV (PCR) NEGATIVE (NEGATIVE) SARS-CoV-2 (PCR) NEGATIVE (NEGATIVE) Group A Strep Antibody (NEGATIVE) 05/23/24 05/24/24 Range/Units 21:03 00:14 WBC (3.98-10.04) x10^3/uL RBC (3.93-5.22) x10^6/uL Hgb (11.2-15.7) g/dL Hct (34.1-44.9) % MCV (79.4-94.8) fL MCH (25.6-32.2) pg MCHC (32.2-35.5) g/dL RDW (11.7-14.4) % Plt Count (182-369) x10^3/uL MPV (9.4-12.3) fL Segmented Neutrophils (34.0-71.1) % Lymphocytes (Manual) (19.3-51.7) % Monocytes (Manual) (4.7-12.5) % Platelet Estimate (NORMAL) RBC Morphology Macrocytosis Puncture Site LEFT RADIAL pCO2 29 L (35-45) mmHg pO2 68 L (75-100) mmHg Base Excess -6.8 L (-2.0-2.0) O2 Saturation 93.5 L (94-100) g/dF ABG pH 7.38 (7.35-7.45) ABG HCO3 17.2 L (22-28) ABG O2 Sat (Measured) 95.8 (95-100) % Syd Test YES A-a Gradient 152 a/A Ratio 0.31 Hemoglobin 11.7 Carboxyhemoglobin 1.4 (0.0-6.9) % THgb Methemoglobin 0.9 L (1.4-1.5) % Temperature 37.0 C POC O2 Flow Rate 36 % Sodium (135-145) mmol/L Potassium 3.5 (3.5-5.1) mmol/L Chloride (98-107) mmol/L Carbon Dioxide (22-30) mmol/L Anion Gap (5-15) MEQ/L BUN (7-17) mg/dL Creatinine (0.52-1.04) mg/dL Estimated GFR ML/MIN Glucose (74-106) mg/dL POC Glucometer 177 H (74 to 106) mg/dL Calcium (8.4-10.2) mg/dL Total Bilirubin (0.2-1.3) mg/dL AST (14-36) U/L ALT (0-35) U/L Alkaline Phosphatase (38-126) U/L Serum Total Protein (6.3-8.2) g/dL Albumin (3.5-5.0) g/dL Serum HCG, Qual (NEGATIVE) Influenza Type A Ag (NEGATIVE) Influenza Type B Ag (NEGATIVE) RSV (PCR) (NEGATIVE) SARS-CoV-2 (PCR) (NEGATIVE) Group A Strep Antibody (NEGATIVE) Radiology Exams: Radiology Procedures Category Date Time Status CHEST 2 VIEWS (PA AND LAT) Stat Exams 05/23/24 11:50 Completed Multi-Disciplinary Progress Notes: Multi-Disciplinary Progress Notes 05/24/24 02:08 Respiratory Note by Rossy Paz At 2215 patient was complaining of SOB. PRN xopenex ordered and given to patient. RR was in the mid 30s, HR in the 130s, SpO2 was 90-91% on 3L oxymask. RT increased O2 to 5L oxymask. RT checked on pt at 0000 and patient was still complaining of SOB with little change in vitals. ABG was drawn at this time. Pt was placed on 6L oxymizer. Pt continued to complain of SOB, RR was 34, HR 138, SpO2 was 92% on 6L oxymizer. Pt was placed on high flow nasal cannula at 40L and 50% FiO2. Pt's vitals on HFNC are RR 22-24, HR 115, SpO2 96-97%. RT notified JERONIMO Curtis and Dr. Sang Simental. No further orders from Dr. Simental at this time. Initialized on 05/24/24 02:08 - END OF NOTE <SEUN PAREDES - Last Filed: 05/24/24 12:01> Vital Signs: Vital Signs - 24 hr Temp Pulse Resp BP Pulse Ox 05/24/24 18:49 113 H 18 92 L 05/24/24 15:00 97 F 134 H 18 126/73 90 L 05/24/24 14:32 131 H 26 H 94 L 05/24/24 11:12 135 H 32 H 95 05/24/24 11:00 98.1 F 137 H 18 111/61 93 L 05/24/24 07:15 125 H 30 H 93 L 05/24/24 07:00 97.2 F 117 H 18 118/55 93 L 05/24/24 05:36 118 H 22 96 05/24/24 03:00 97.7 F 127 H 23 109/72 94 L 05/24/24 02:06 97 05/23/24 23:00 98.2 F 140 H 24 104/45 92 L 05/23/24 22:15 135 H 30 H 90 L Pain Assessment - Last Documented Pain Intensity 0 Pain Scale Used 0-10 Pain Scale Intake and Output: Intake & Output 05/22/24 05/23/24 05/24/24 05/25/24 11:59 11:59 11:59 11:59 Intake Total 2684 720 Balance 2684 720 Weight 104.326 kg 104.5 kg Lab Results: Lab Results-Last 24 Hours 05/23/24 05/24/24 05/24/24 Range/Units 21:03 00:14 06:45 WBC 17.5 H (3.98-10.04) x10^3/uL RBC 3.66 L (3.93-5.22) x10^6/uL Hgb 11.3 (11.2-15.7) g/dL Hct 34.1 (34.1-44.9) % MCV 93.2 (79.4-94.8) fL MCH 30.9 (25.6-32.2) pg MCHC 33.1 (32.2-35.5) g/dL RDW 19.6 H (11.7-14.4) % Plt Count 321 (182-369) x10^3/uL MPV 8.5 L (9.4-12.3) fL Puncture Site LEFT RADIAL pCO2 29 L (35-45) mmHg pO2 68 L (75-100) mmHg Base Excess -6.8 L (-2.0-2.0) O2 Saturation 93.5 L (94-100) g/dF ABG pH 7.38 (7.35-7.45) ABG HCO3 17.2 L (22-28) ABG O2 Sat (Measured) 95.8 (95-100) % Syd Test YES A-a Gradient 152 a/A Ratio 0.31 Hemoglobin 11.7 Carboxyhemoglobin 1.4 (0.0-6.9) % THgb Methemoglobin 0.9 L (1.4-1.5) % Potassium 3.5 (3.5-5.1) Temperature 37.0 C POC O2 Flow Rate 36 % Sodium (135-145) mmol/L Chloride (98-107) mmol/L Carbon Dioxide (22-30) mmol/L Anion Gap (5-15) MEQ/L BUN (7-17) mg/dL Creatinine (0.52-1.04) mg/dL Estimated GFR ML/MIN Glucose (74-106) mg/dL POC Glucometer 177 H (74 to 106) mg/dL Hemoglobin A1c (4.5-6.0) % Calcium (8.4-10.2) mg/dL Total Bilirubin (0.2-1.3) mg/dL AST (14-36) U/L ALT (0-35) U/L Alkaline Phosphatase (38-126) U/L Serum Total Protein (6.3-8.2) g/dL Albumin (3.5-5.0) g/dL TSH 3rd Generation (0.470-4.680) mIU/L 05/24/24 05/24/24 05/24/24 Range/Units 06:45 06:45 07:24 WBC (3.98-10.04) x10^3/uL RBC (3.93-5.22) x10^6/uL Hgb (11.2-15.7) g/dL Hct (34.1-44.9) % MCV (79.4-94.8) fL MCH (25.6-32.2) pg MCHC (32.2-35.5) g/dL RDW (11.7-14.4) % Plt Count (182-369) x10^3/uL MPV (9.4-12.3) fL Puncture Site pCO2 (35-45) mmHg pO2 (75-100) mmHg Base Excess (-2.0-2.0) O2 Saturation (94-100) g/dF ABG pH (7.35-7.45) ABG HCO3 (22-28) ABG O2 Sat (Measured) (95-100) % Syd Test A-a Gradient a/A Ratio Hemoglobin Carboxyhemoglobin (0.0-6.9) % THgb Methemoglobin (1.4-1.5) % Potassium 3.8 (3.5-5.1) Temperature C POC O2 Flow Rate % Sodium 136 (135-145) mmol/L Chloride 108 H (98-107) mmol/L Carbon Dioxide 20 L (22-30) mmol/L Anion Gap 11.3 (5-15) MEQ/L BUN 6 L (7-17) mg/dL Creatinine 0.77 (0.52-1.04) mg/dL Estimated GFR 107.0 ML/MIN Glucose 135 H (74-106) mg/dL POC Glucometer 136 H (74 to 106) mg/dL Hemoglobin A1c 5.16 (4.5-6.0) % Calcium 9.0 (8.4-10.2) mg/dL Total Bilirubin 0.30 (0.2-1.3) mg/dL AST 63 H (14-36) U/L ALT 33 (0-35) U/L Alkaline Phosphatase 139 H (38-126) U/L Serum Total Protein 6.7 (6.3-8.2) g/dL Albumin 3.5 (3.5-5.0) g/dL TSH 3rd Generation (0.470-4.680) mIU/L 05/24/24 05/24/24 05/24/24 Range/Units 12:07 12:09 16:49 WBC (3.98-10.04) x10^3/uL RBC (3.93-5.22) x10^6/uL Hgb (11.2-15.7) g/dL Hct (34.1-44.9) % MCV (79.4-94.8) fL MCH (25.6-32.2) pg MCHC (32.2-35.5) g/dL RDW (11.7-14.4) % Plt Count (182-369) x10^3/uL MPV (9.4-12.3) fL Puncture Site pCO2 (35-45) mmHg pO2 (75-100) mmHg Base Excess (-2.0-2.0) O2 Saturation (94-100) g/dF ABG pH (7.35-7.45) ABG HCO3 (22-28) ABG O2 Sat (Measured) (95-100) % Syd Test A-a Gradient a/A Ratio Hemoglobin Carboxyhemoglobin (0.0-6.9) % THgb Methemoglobin (1.4-1.5) % Potassium (3.5-5.1) Temperature C POC O2 Flow Rate % Sodium (135-145) mmol/L Chloride (98-107) mmol/L Carbon Dioxide (22-30) mmol/L Anion Gap (5-15) MEQ/L BUN (7-17) mg/dL Creatinine (0.52-1.04) mg/dL Estimated GFR ML/MIN Glucose (74-106) mg/dL POC Glucometer 134 H 157 H (74 to 106) mg/dL Hemoglobin A1c (4.5-6.0) % Calcium (8.4-10.2) mg/dL Total Bilirubin (0.2-1.3) mg/dL AST (14-36) U/L ALT (0-35) U/L Alkaline Phosphatase (38-126) U/L Serum Total Protein (6.3-8.2) g/dL Albumin (3.5-5.0) g/dL TSH 3rd Generation 0.522 (0.470-4.680) mIU/L 05/24/24 Range/Units 20:18 WBC (3.98-10.04) x10^3/uL RBC (3.93-5.22) x10^6/uL Hgb (11.2-15.7) g/dL Hct (34.1-44.9) % MCV (79.4-94.8) fL MCH (25.6-32.2) pg MCHC (32.2-35.5) g/dL RDW (11.7-14.4) % Plt Count (182-369) x10^3/uL MPV (9.4-12.3) fL Puncture Site pCO2 (35-45) mmHg pO2 (75-100) mmHg Base Excess (-2.0-2.0) O2 Saturation (94-100) g/dF ABG pH (7.35-7.45) ABG HCO3 (22-28) ABG O2 Sat (Measured) (95-100) % Syd Test A-a Gradient a/A Ratio Hemoglobin Carboxyhemoglobin (0.0-6.9) % THgb Methemoglobin (1.4-1.5) % Potassium (3.5-5.1) Temperature C POC O2 Flow Rate % Sodium (135-145) mmol/L Chloride (98-107) mmol/L Carbon Dioxide (22-30) mmol/L Anion Gap (5-15) MEQ/L BUN (7-17) mg/dL Creatinine (0.52-1.04) mg/dL Estimated GFR ML/MIN Glucose (74-106) mg/dL POC Glucometer 140 H (74 to 106) mg/dL Hemoglobin A1c (4.5-6.0) % Calcium (8.4-10.2) mg/dL Total Bilirubin (0.2-1.3) mg/dL AST (14-36) U/L ALT (0-35) U/L Alkaline Phosphatase (38-126) U/L Serum Total Protein (6.3-8.2) g/dL Albumin (3.5-5.0) g/dL TSH 3rd Generation (0.470-4.680) mIU/L Radiology Exams: Radiology Procedures Category Date Time Status CHEST 2 VIEWS (PA AND LAT) Stat Exams 05/23/24 11:50 Completed CHEST WITH CONTRAST [CT] Stat Exams 05/24/24 07:49 Completed Multi-Disciplinary Progress Notes: Multi-Disciplinary Progress Notes 05/24/24 02:08 Respiratory Note by Rossy Paz At 2215 patient was complaining of SOB. PRN xopenex ordered and given to patient. RR was in the mid 30s, HR in the 130s, SpO2 was 90-91% on 3L oxymask. RT increased O2 to 5L oxymask. RT checked on pt at 0000 and patient was still complaining of SOB with little change in vitals. ABG was drawn at this time. Pt was placed on 6L oxymizer. Pt continued to complain of SOB, RR was 34, HR 138, SpO2 was 92% on 6L oxymizer. Pt was placed on high flow nasal cannula at 40L and 50% FiO2. Pt's vitals on HFNC are RR 22-24, HR 115, SpO2 96-97%. RT notified JERONIMO Curtis and Dr. Sang Simental. No further orders from Dr. Simental at this time. Initialized on 05/24/24 02:08 - END OF NOTE <BOONE PATEL - Last Filed: 05/24/24 20:28> Assessment/Plan (1) Influenza A Current Visit: Yes Status: Acute Assessment & Plan: - Tamiflu started -CXR with no acute findings - Continue IVF, steroids, duonebs, - Antiemetic, Tylenol PRN - CBC, CMP reviewed - WBC reviewed on admission at 12.2 - Tylenol, heating pad for abd pain 2:2 coughing - Tessalon TID PRN cough -Add robitussin AC - baseline RA -supplemental oxygen with goal spo2 > 92%- patient currently requiring HF NC 40L and 50% Fio2 - RT eval and treat -CT chest w/pe protocol - pending Code(s): J10.1 - FLU DUE TO OTH IDENT INFLUENZA VIRUS W OTH RESP MANIFEST (2) History of asthma Current Visit: Yes Status: Acute Assessment & Plan: -Adds to complexity -See the above plan for flu Code(s): Z87.09 - PERSONAL HISTORY OF OTHER DISEASES OF THE RESPIRATORY SYSTEM (3) HTN (hypertension) Current Visit: Yes Status: Acute Assessment & Plan: - Restart home meds - BP stable Code(s): I10 - ESSENTIAL (PRIMARY) HYPERTENSION (4) Tachycardia Current Visit: Yes Status: Acute Assessment & Plan: - Tele - restart home meds -TSH level Code(s): R00.0 - TACHYCARDIA, UNSPECIFIED (5) Yeast dermatitis Current Visit: Yes Status: Acute Assessment & Plan: -nystatin powder -pillowcases between abd. folds Code(s): B37.2 - CANDIDIASIS OF SKIN AND NAIL (6) Anxiety and depression Current Visit: Yes Status: Chronic Assessment & Plan: -Continue home meds Code(s): F41.9 - ANXIETY DISORDER, UNSPECIFIED; F32.A - DEPRESSION, UNSPECIFIED (7) Hypothyroidism Current Visit: Yes Status: Chronic Assessment & Plan: -Continue Synthroid Code(s): E03.9 - HYPOTHYROIDISM, UNSPECIFIED (8) Morbid obesity Current Visit: Yes Status: Chronic Assessment & Plan: -Advised diet and exercise control VTE: Lovenox PPI: Protonix Next of KIN: Parents- [employer] D/C plan: 1-2 days Code status: Full Code(s): E66.01 - MORBID (SEVERE) OBESITY DUE TO EXCESS CALORIES <SEUN PAREDES - Last Filed: 05/24/24 12:01> JYOTI Encounter - JYOTI Encounter Attestation JYOTI Encounter Attestation: "LIGIA Minor andhavediscussed pertinent aspects of their care with Seun Gonzalez agree with the history, physical exam (any modifications based on my personal exam will be noted below), assessment, and plan as outlined in original note. Please see immediately below for my summary of findings and additional assessment and plan along with any meaningful corrections/explanations to the Subjective/Objective portions of the JYOTI note will be noted." My portion of the encounter took place via telemedicine. -Patient with flu A, with worsening dyspnea and hypoxia today. CT showed bilateral ground glass opacities, influenza pneumonia vs secondary bacterial pneumonia. Will add IV antibiotics. Already on IV steroids. Continue oxygen support. <BOONE PATEL - Last Filed: 05/24/24 20:28>
[2024-05-24 06:57] LABS: Hematocrit 34.1 % (34.1-44.9); Hemoglobin 11.3 g/dL (11.2-15.7); Mean Cell Volume 93.2 fL (79.4-94.8); Mean Corpuscular Hemoglobin 30.9 pg (25.6-32.2); Mean Corpuscular Hgb Concent. 33.1 g/dL (32.2-35.5); Mean Platelet Volume 8.5 fL (9.4-12.3); Platelet Count 321 x10^3/uL (182-369); Red Blood Count 3.66 x10^6/uL (3.93-5.22); Red Cell Distribution Width 19.6 % (11.7-14.4); White Blood Count 17.5 x10^3/uL (3.98-10.04)
[2024-05-24] MEDS ORDERED: DUONEB 0.5-3 MG/3 ml Neb IH ONE (07:07)
[2024-05-24 07:33] LABS: ALBUMIN 3.5 g/dL (3.5-5.0); ANION GAP 11.3 MEQ/L (5-15); BILIRUBIN,TOTAL 0.3 mg/dL (0.2-1.3); Creatinine 1 0.77 mg/dL (0.52-1.04); Potassium 3.8 mmol/L (3.5-5.1); Total Protein 6.7 g/dL (6.3-8.2)
[2024-05-24] MEDS ORDERED: MEDICATION INTERVENTION MC SCH (08:00)
[2024-05-24] MEDS ORDERED: PROPRANOLOL HCL 160 MG PO SCH (10:00)
--- NOTE | 2024-05-24 12:05 | XRAY ---
Indication: Cough. Short of breath. Multiple contiguous axial images obtained through the chest using 80 cc Isovue 370 contrast and PE protocol. Comparison: May 29, 2021 Suboptimal opacification pulmonary arteries and diffuse respiration artifact limits evaluation for pulmonary embolus. No obvious central pulmonary embolus. Heart not enlarged. Aorta is normal in course and caliber. No pathologic mediastinal/hilar lymphadenopathy. Lungs again demonstrates diffuse bilateral patchy groundglass airspace disease, more than before. Right middle lobe demonstrates subsegmental atelectasis. No effusion. Bony thorax intact. Limited upper abdomen again demonstrates 13.8 cm splenomegaly, fatty liver, and cholecystectomy. Impression: 1. Pulmonary embolus evaluation limited by suboptimal contrast opacification and diffuse respiration artifact. No obvious pulmonary embolus. Line 2. Recurrent diffuse bilateral patchy groundglass airspace disease. 3. Chronic findings including fatty liver and splenomegaly.
[2024-05-24] MEDS: NEURONTIN PO SCH (12:29)
[2024-05-24] MEDS: Klor Con PO SCH (12:30)
[2024-05-24] MEDS: Cymbalta 30 MG Capsule PO SCH (12:30)
[2024-05-24] MEDS: ENOXAPARIN SODIUM SQ SCH (12:30)
[2024-05-24] MEDS: Robitussin AC Syrup Unit Dose Cup PO PRN (12:30)
[2024-05-24] MEDS: Toprol-Xl 25MG Tablets PO SCH (12:31)
[2024-05-24] MEDS: SYNTHROID 75 MCG PO SCH (12:31)
[2024-05-24] MEDS: ROCEPHIN 1 GM / 100 ML NaCl 1 GM/100 ML IVPB IV SCH (13:12)
[2024-05-24] MEDS: Zithromax 500 MG/ 250 ML NaCl Premix 500 MG/250 ML IVPB IV SCH (14:33)
[2024-05-24] MEDS: Sodium Chloride 3 ML UD NEBULES IH PRN (21:05)
[2024-05-25 04:42] LABS: Hematocrit 33.4 % (34.1-44.9); Mean Cell Volume 94.4 fL (79.4-94.8); Mean Corpuscular Hemoglobin 31.1 pg (25.6-32.2); Mean Corpuscular Hgb Concent. 32.9 g/dL (32.2-35.5); Mean Platelet Volume 8.9 fL (9.4-12.3); Platelet Count 284 x10^3/uL (182-369); Red Blood Count 3.54 x10^6/uL (3.93-5.22); Red Cell Distribution Width 19.6 % (11.7-14.4); White Blood Count 21.1 x10^3/uL (3.98-10.04)
[2024-05-25 05:14] LABS: ALBUMIN 3.5 g/dL (3.5-5.0); ANION GAP 13.1 MEQ/L (5-15); BILIRUBIN,TOTAL 0.3 mg/dL (0.2-1.3); Calcium 8.9 mg/dL (8.4-10.2); Creatinine 1 0.73 mg/dL (0.52-1.04); EST GLOMERULAR FILTRATION RATE 114.1 ML/MIN; MAGNESIUM 1.8 mg/dL (1.6-2.3); Potassium 3.6 mmol/L (3.5-5.1); Total Protein 6.4 g/dL (6.3-8.2)
--- NOTE | 2024-05-25 05:29 | PCM.NOTE ---
Date and Time: 05/25/24 0524 Subjective Assessment: Ms. Washington is a 28-year-old female with PMHX of Irritable bowel disease, Crohn's Disease, GERD, gallbladder Disease, migraines, seizures, asthma, hypothyroidism, anxiety, depression, and chronic morbid obesity admitted 05/23/24 with Flu A after presenting to ED with a two day history of cough, fever, and vomiting. On presentation patient was tachycardic and tachypneic. EKG Sinus Tach, NORMAL AXIS, NORMAL INTERVALS, NORMAL QRS, Non-specific ST Changes. CXR with no acute findings.CT chest with Recurrent diffuse bilateral patchy groundglass airspace disease. Negative for PE. Labs remarkable for leukocytosis with WBC 12.2, CO2 18. In ER 1LNS fluid bolus, Zofran, steroids, and duoneb were provided. IP treatment with tamiflu, solumedrol, IVF, and supportive care. 05/24/24: Overnight events noted of increased use of oxygen. Patient now on HF 40L at 50% FiO2. Patient endorses increased dyspnea and cough with pain in her abdomen and back from coughing. Patient also endorsing diarrhea. Will order CT Chest w/ PE protocol today. Continue treatment for fluA until CT report. 05/25: CT chest with Recurrent diffuse bilateral patchy groundglass airspace disease. Negative for PE. Ceftriaxone and azithromycin initiated 05/24/24. Patient now on 4L NC from HF 40L at 50% FiO2. Endorses improvement in dyspnea and cough. Encouraged ambulation and incentive spirometer. Continue abx, steroid, and tamiflu. Patient does report anxiety this morning. - Review of Systems Constitutional: Weakness Eyes: No Symptoms Ears, Nose, & Throat: No Symptoms Respiratory: Cough, Short Of Breath, Wheezing Cardiac: No Symptoms Abdominal/Gastrointestinal: No Symptoms Genitourinary Symptoms: No Symptoms Musculoskeletal: No Symptoms Skin: No Symptoms Neurological: No Symptoms Psychological: Anxiety Endocrine: No Symptoms Hematologic/Lymphatic: No Symptoms Immunological/Allergic: No Symptoms Objective Exam General Appearance: no apparent distress Neurologic Exam: alert, oriented x 3, cooperative Skin Exam: normal color Wound Assessment: Skin/Wound Assessment Wound/Incision Assessment Start: 05/23/24 17:53 Text: Status: Active Freq: Protocol: Document 05/23/24 17:53 RB (Rec: 05/23/24 17:55 RB [id number]) Wound/Incision Assessment Lower Anterior Abdomen Wound Assessment Admission Wound Type gaulding Dressing Status Dry & Intact Drainage Amount None Drainage Odor Foul Odor Surrounding Tissue [place] Comment nystatin powder and pillow cases placed to keep dry Anterior Abdomen Wound Assessment Admission Wound Type scabs Wound Stage Non Pressure Wound Dressing Status Dry & Intact Drainage Amount None Drainage Odor None/Absent Comment scattered healing wounds noted to anterior abd, pt reports gary from a heating pad, open to air, no bleeding or drainage noted Ears, Nose, Throat Exam: normal ENT inspection Neck Exam: normal inspection Respiratory Exam: diminished breath sounds, wheezing Cardiovascular Exam: tachycardia Gastrointestinal/Abdomen Exam: soft, normal bowel sounds Extremity Exam: normal inspection Back Exam: normal inspection Pelvic Exam: deferred Rectal Exam: deferred Objective Data Vital Signs: Vital Signs - 24 hr Temp Pulse Resp BP Pulse Ox 05/25/24 03:00 97.9 F 126 H 22 126/69 92 L 05/24/24 23:55 98.5 F 123 H 20 126/60 90 L 05/24/24 21:06 110 H 16 92 L 05/24/24 19:00 98.6 F 126 H 22 116/61 91 L 05/24/24 18:49 113 H 18 92 L 05/24/24 15:00 97 F 134 H 18 126/73 90 L 05/24/24 14:32 131 H 26 H 94 L 05/24/24 11:12 135 H 32 H 95 05/24/24 11:00 98.1 F 137 H 18 111/61 93 L 05/24/24 07:15 125 H 30 H 93 L 05/24/24 07:00 97.2 F 117 H 18 118/55 93 L 05/24/24 05:36 118 H 22 96 Pain Assessment - Last Documented Pain Intensity 0 Pain Scale Used 0-10 Pain Scale Intake and Output: Intake & Output 05/22/24 05/23/24 05/24/24 05/25/24 11:59 11:59 11:59 11:59 Intake Total 2684 960 Balance 2684 960 Weight 104.326 kg 104.5 kg Lab Results: Lab Results-Last 24 Hours 05/24/24 05/24/24 05/24/24 Range/Units 06:45 06:45 06:45 WBC 17.5 H (3.98-10.04) x10^3/uL RBC 3.66 L (3.93-5.22) x10^6/uL Hgb 11.3 (11.2-15.7) g/dL Hct 34.1 (34.1-44.9) % MCV 93.2 (79.4-94.8) fL MCH 30.9 (25.6-32.2) pg MCHC 33.1 (32.2-35.5) g/dL RDW 19.6 H (11.7-14.4) % Plt Count 321 (182-369) x10^3/uL MPV 8.5 L (9.4-12.3) fL Sodium 136 (135-145) mmol/L Potassium 3.8 (3.5-5.1) mmol/L Chloride 108 H (98-107) mmol/L Carbon Dioxide 20 L (22-30) mmol/L Anion Gap 11.3 (5-15) MEQ/L BUN 6 L (7-17) mg/dL Creatinine 0.77 (0.52-1.04) mg/dL Estimated GFR 107.0 ML/MIN Glucose 135 H (74-106) mg/dL POC Glucometer (74 to 106) mg/dL Hemoglobin A1c 5.16 (4.5-6.0) % Calcium 9.0 (8.4-10.2) mg/dL Total Bilirubin 0.30 (0.2-1.3) mg/dL AST 63 H (14-36) U/L ALT 33 (0-35) U/L Alkaline Phosphatase 139 H (38-126) U/L Serum Total Protein 6.7 (6.3-8.2) g/dL Albumin 3.5 (3.5-5.0) g/dL TSH 3rd Generation (0.470-4.680) mIU/L 05/24/24 05/24/24 05/24/24 Range/Units 07:24 12:07 12:09 WBC (3.98-10.04) x10^3/uL RBC (3.93-5.22) x10^6/uL Hgb (11.2-15.7) g/dL Hct (34.1-44.9) % MCV (79.4-94.8) fL MCH (25.6-32.2) pg MCHC (32.2-35.5) g/dL RDW (11.7-14.4) % Plt Count (182-369) x10^3/uL MPV (9.4-12.3) fL Sodium (135-145) mmol/L Potassium (3.5-5.1) mmol/L Chloride (98-107) mmol/L Carbon Dioxide (22-30) mmol/L Anion Gap (5-15) MEQ/L BUN (7-17) mg/dL Creatinine (0.52-1.04) mg/dL Estimated GFR ML/MIN Glucose (74-106) mg/dL POC Glucometer 136 H 134 H (74 to 106) mg/dL Hemoglobin A1c (4.5-6.0) % Calcium (8.4-10.2) mg/dL Total Bilirubin (0.2-1.3) mg/dL AST (14-36) U/L ALT (0-35) U/L Alkaline Phosphatase (38-126) U/L Serum Total Protein (6.3-8.2) g/dL Albumin (3.5-5.0) g/dL TSH 3rd Generation 0.522 (0.470-4.680) mIU/L 05/24/24 05/24/24 05/25/24 Range/Units 16:49 20:18 04:35 WBC 21.1 H (3.98-10.04) x10^3/uL RBC 3.54 L (3.93-5.22) x10^6/uL Hgb 11.0 L (11.2-15.7) g/dL Hct 33.4 L (34.1-44.9) % MCV 94.4 (79.4-94.8) fL MCH 31.1 (25.6-32.2) pg MCHC 32.9 (32.2-35.5) g/dL RDW 19.6 H (11.7-14.4) % Plt Count 284 (182-369) x10^3/uL MPV 8.9 L (9.4-12.3) fL Sodium (135-145) mmol/L Potassium (3.5-5.1) mmol/L Chloride (98-107) mmol/L Carbon Dioxide (22-30) mmol/L Anion Gap (5-15) MEQ/L BUN (7-17) mg/dL Creatinine (0.52-1.04) mg/dL Estimated GFR ML/MIN Glucose (74-106) mg/dL POC Glucometer 157 H 140 H (74 to 106) mg/dL Hemoglobin A1c (4.5-6.0) % Calcium (8.4-10.2) mg/dL Total Bilirubin (0.2-1.3) mg/dL AST (14-36) U/L ALT (0-35) U/L Alkaline Phosphatase (38-126) U/L Serum Total Protein (6.3-8.2) g/dL Albumin (3.5-5.0) g/dL TSH 3rd Generation (0.470-4.680) mIU/L Radiology Exams: Radiology Procedures Category Date Time Status CHEST 2 VIEWS (PA AND LAT) Stat Exams 05/23/24 11:50 Completed CHEST WITH CONTRAST [CT] Stat Exams 05/24/24 07:49 Completed Assessment/Plan (1) Influenza A Current Visit: Yes Status: Acute Assessment & Plan: - Tamiflu started -CXR with no acute findings - Continue IVF, steroids, duonebs, - Antiemetic, Tylenol PRN - CBC, CMP reviewed - WBC reviewed on admission at 12.2 - Tylenol, heating pad for abd pain 2:2 coughing - Tessalon TID PRN cough -Add robitussin AC - baseline RA -supplemental oxygen with goal spo2 > 92%- patient currently requiring HF NC 40L and 50% Fio2 - RT eval and treat -CT chest w/pe protocol - pending 05/25: -CT chest reviewed showing groundglass airspace disease -Ceftriaxone/azith started 05/24/23 -Oxygen now at 4L NC Code(s): J10.1 - FLU DUE TO OTH IDENT INFLUENZA VIRUS W OTH RESP MANIFEST Pneumonia -CT with ground glass airspace disease - see arf for plan (2) History of asthma Current Visit: Yes Status: Acute Assessment & Plan: -Adds to complexity -See the above plan for flu Code(s): Z87.09 - PERSONAL HISTORY OF OTHER DISEASES OF THE RESPIRATORY SYSTEM (3) HTN (hypertension) Current Visit: Yes Status: Acute Assessment & Plan: - Restart home meds - BP stable Code(s): I10 - ESSENTIAL (PRIMARY) HYPERTENSION (4) Tachycardia Current Visit: Yes Status: Acute Assessment & Plan: - Tele - restart home meds -TSH WNL Code(s): R00.0 - TACHYCARDIA, UNSPECIFIED (5) Yeast dermatitis Current Visit: Yes Status: Acute Assessment & Plan: -nystatin powder -pillowcases between abd. folds Code(s): B37.2 - CANDIDIASIS OF SKIN AND NAIL (6) Anxiety and depression Current Visit: Yes Status: Chronic Assessment & Plan: -Continue home meds -consider adding ati Code(s): F41.9 - ANXIETY DISORDER, UNSPECIFIED; F32.A - DEPRESSION, UNSPECIFIED (7) Hypothyroidism Current Visit: Yes Status: Chronic Assessment & Plan: -Continue Synthroid Code(s): E03.9 - HYPOTHYROIDISM, UNSPECIFIED (8) Morbid obesity Current Visit: Yes Status: Chronic Assessment & Plan: -Advised diet and exercise control VTE: Lovenox PPI: Protonix Next of KIN: Parents- Yinka and Zahira D/C plan: 1-2 days Code status: Full Code(s): J10.1 - FLU DUE TO OTH IDENT INFLUENZA VIRUS W OTH RESP MANIFEST (2) History of asthma Current Visit: Yes Status: Acute Code(s): Z87.09 - PERSONAL HISTORY OF OTHER DISEASES OF THE RESPIRATORY SYSTEM (3) HTN (hypertension) Current Visit: Yes Status: Acute Code(s): I10 - ESSENTIAL (PRIMARY) HYPERTENSION (4) Tachycardia Current Visit: Yes Status: Acute Code(s): R00.0 - TACHYCARDIA, UNSPECIFIED (5) Yeast dermatitis Current Visit: Yes Status: Acute Code(s): B37.2 - CANDIDIASIS OF SKIN AND NAIL (6) Anxiety and depression Current Visit: Yes Status: Chronic Code(s): F41.9 - ANXIETY DISORDER, UNSPECIFIED; F32.A - DEPRESSION, UNSPECIFIED (7) Hypothyroidism Current Visit: Yes Status: Chronic Code(s): E03.9 - HYPOTHYROIDISM, UNSPECIFIED (8) Morbid obesity Current Visit: Yes Status: Chronic Code(s): E66.01 - MORBID (SEVERE) OBESITY DUE TO EXCESS CALORIES
[2024-05-25 09:02] LABS: BAND 2 % (0.0-2.0); Lymphocytes 4 % (19.3-51.7); Monocyte 2 % (4.7-12.5); Neutrophils 92 % (34.0-71.1); Total Cells Counted 100
[2024-05-25 09:04] LABS: ANISOCYTOSIS 2+; Platelet Estimate NORMAL (NORMAL)
[2024-05-25 09:05] LABS: Toxic Granulation 1+
[2024-05-25] MEDS: Zofran 4 MG/2 ML VIAL IV PRN (17:59)
[2024-05-26 05:05] LABS: Absolute Neutrophil Ct (ANC) 16.07 x10^3/uL (1.56-6.13); BASOPHIL % 0.1 % (0.1-1.2); Basophil (Absolute #) 0.01 x10^3/uL (0.01-0.08); Eosinophil % 0.2 % (0.7-5.8); Eosinophil (Absolute #) 0.04 x10^3/uL (0.04-0.36); Hematocrit 32.5 % (34.1-44.9); Hemoglobin 10.5 g/dL (11.2-15.7); IMMATURE GRAN % 0.6 % (0.001-0.429); Lymphocytes % 6.1 % (19.3-51.7); Mean Cell Volume 94.8 fL (79.4-94.8); Mean Corpuscular Hemoglobin 30.6 pg (25.6-32.2); Mean Corpuscular Hgb Concent. 32.3 g/dL (32.2-35.5); Mean Platelet Volume 8.7 fL (9.4-12.3); Monocyte (Absolute #) 0.76 x10^3/uL (0.24-0.86); Monocytes % 4.2 % (4.7-12.5); Neutrophil % 88.8 % (34.0-71.1); Platelet Count 308 x10^3/uL (182-369); Red Blood Count 3.43 x10^6/uL (3.93-5.22); Red Cell Distribution Width 20.1 % (11.7-14.4); White Blood Count 18.1 x10^3/uL (3.98-10.04)
--- NOTE | 2024-05-26 05:06 | PCM.NOTE ---
Date and Time: 05/26/24 1648 Subjective Assessment: Ms. Washington is a 28-year-old female with PMHX of Irritable bowel disease, Crohn's Disease, GERD, gallbladder Disease, migraines, seizures, asthma, hypothyroidism, anxiety, depression, and chronic morbid obesity admitted 05/23/24 with Flu A after presenting to ED with a two day history of cough, fever, and vomiting. On presentation patient was tachycardic and tachypneic. EKG Sinus Tach, NORMAL AXIS, NORMAL INTERVALS, NORMAL QRS, Non-specific ST Changes. CXR with no acute findings.CT chest with Recurrent diffuse bilateral patchy groundglass airspace disease. Negative for PE. Labs remarkable for leukocytosis with WBC 12.2, CO2 18. In ER 1LNS fluid bolus, Zofran, steroids, and duoneb were provided. IP treatment with tamiflu, solumedrol, IVF, and supportive care. 05/24/24: Overnight events noted of increased use of oxygen. Patient now on HF 40L at 50% FiO2. Patient endorses increased dyspnea and cough with pain in her abdomen and back from coughing. Patient also endorsing diarrhea. Will order CT Chest w/ PE protocol today. Continue treatment for fluA until CT report. 05/25: CT chest with Recurrent diffuse bilateral patchy groundglass airspace disease. Negative for PE. Ceftriaxone and azithromycin initiated 05/24/24. Patient now on 4L NC from HF 40L at 50% FiO2. Endorses improvement in dyspnea and cough. Encouraged ambulation and incentive spirometer. Continue abx, steroid, and tamiflu. Patient does report anxiety this morning. 05/26: Met with patient bedside. Continues to endorse dyspnea and cough. Remains on 4L NC. Consult with pulmonology pending, appreciate recs. Denies fever, cp, abdominal pain, [place], dizziness, N/V/D. - Review of Systems Constitutional: No Symptoms Eyes: No Symptoms Ears, Nose, & Throat: No Symptoms Respiratory: Cough, Short Of Breath, Wheezing Cardiac: No Symptoms Abdominal/Gastrointestinal: No Symptoms Genitourinary Symptoms: No Symptoms Musculoskeletal: No Symptoms Skin: No Symptoms Neurological: No Symptoms Psychological: No Symptoms Endocrine: No Symptoms Hematologic/Lymphatic: No Symptoms Immunological/Allergic: No Symptoms Objective Exam General Appearance: no apparent distress Neurologic Exam: alert, oriented x 3, cooperative Skin Exam: normal color Wound Assessment: Skin/Wound Assessment Wound/Incision Assessment Start: 05/23/24 17:53 Text: Status: Active Freq: Protocol: Document 05/23/24 17:53 RB (Rec: 05/23/24 17:55 RB [id number]) Wound/Incision Assessment Lower Anterior Abdomen Wound Assessment Admission Wound Type gaulding Dressing Status Dry & Intact Drainage Amount None Drainage Odor Foul Odor Surrounding Tissue [place] Comment nystatin powder and pillow cases placed to keep dry Anterior Abdomen Wound Assessment Admission Wound Type scabs Wound Stage Non Pressure Wound Dressing Status Dry & Intact Drainage Amount None Drainage Odor None/Absent Comment scattered healing wounds noted to anterior abd, pt reports gary from a heating pad, open to air, no bleeding or drainage noted Eye Exam: PERRL Ears, Nose, Throat Exam: normal ENT inspection Neck Exam: normal inspection Respiratory Exam: diminished breath sounds, wheezing Cardiovascular Exam: tachycardia Gastrointestinal/Abdomen Exam: soft, normal bowel sounds Extremity Exam: normal inspection Back Exam: normal inspection Pelvic Exam: deferred Rectal Exam: deferred Objective Data Vital Signs: Vital Signs - 24 hr Temp Pulse Resp BP Pulse Ox 05/25/24 23:00 98.2 F 115 H 24 118/65 90 L 05/25/24 20:45 127 H 24 91 L 05/25/24 19:00 97.3 F 136 H 24 119/66 90 L 05/25/24 17:06 123 H 24 93 L 05/25/24 15:00 98.3 F 124 H 22 121/67 91 L 05/25/24 13:41 122 H 26 H 91 L 05/25/24 11:00 98.1 F 126 H 16 112/58 97 05/25/24 09:57 124 H 18 94 L 05/25/24 07:27 91 L 05/25/24 06:52 97.9 F 132 H 20 126/69 91 L 05/25/24 05:54 132 H 20 91 L Pain Assessment - Last Documented Pain Intensity 0 Pain Scale Used 0-10 Pain Scale Intake and Output: Intake & Output 05/23/24 05/24/24 05/25/24 05/26/24 11:59 11:59 11:59 11:59 Intake Total 2684 1560 840 Balance 2684 1560 840 Weight 104.326 kg 104.5 kg Lab Results: Lab Results-Last 24 Hours 05/25/24 05/25/24 05/25/24 Range/Units 04:35 04:35 07:20 WBC 21.1 H (3.98-10.04) x10^3/uL RBC 3.54 L (3.93-5.22) x10^6/uL Hgb 11.0 L (11.2-15.7) g/dL Hct 33.4 L (34.1-44.9) % MCV 94.4 (79.4-94.8) fL MCH 31.1 (25.6-32.2) pg MCHC 32.9 (32.2-35.5) g/dL RDW 19.6 H (11.7-14.4) % Plt Count 284 (182-369) x10^3/uL MPV 8.9 L (9.4-12.3) fL Segmented Neutrophils 92 H (34.0-71.1) % Band Neutrophils 2 (0.0-2.0) % Lymphocytes (Manual) 4 L (19.3-51.7) % Monocytes (Manual) 2 L (4.7-12.5) % Toxic Granulation 1+ Platelet Estimate NORMAL (NORMAL) RBC Morphology ABNORMAL Anisocytosis 2+ Sodium 133 L (135-145) mmol/L Potassium 3.6 (3.5-5.1) mmol/L Chloride 104 (98-107) mmol/L Carbon Dioxide 19 L (22-30) mmol/L Anion Gap 13.1 (5-15) MEQ/L BUN 7 (7-17) mg/dL Creatinine 0.73 (0.52-1.04) mg/dL Estimated GFR 114.1 ML/MIN Glucose 132 H (74-106) mg/dL POC Glucometer 145 H (74 to 106) mg/dL Calcium 8.9 (8.4-10.2) mg/dL Magnesium 1.8 (1.6-2.3) mg/dL Total Bilirubin 0.30 (0.2-1.3) mg/dL AST 90 H (14-36) U/L ALT 35 (0-35) U/L Alkaline Phosphatase 127 H (38-126) U/L Serum Total Protein 6.4 (6.3-8.2) g/dL Albumin 3.5 (3.5-5.0) g/dL 05/25/24 05/25/24 05/25/24 Range/Units 11:48 16:09 21:58 WBC (3.98-10.04) x10^3/uL RBC (3.93-5.22) x10^6/uL Hgb (11.2-15.7) g/dL Hct (34.1-44.9) % MCV (79.4-94.8) fL MCH (25.6-32.2) pg MCHC (32.2-35.5) g/dL RDW (11.7-14.4) % Plt Count (182-369) x10^3/uL MPV (9.4-12.3) fL Segmented Neutrophils (34.0-71.1) % Band Neutrophils (0.0-2.0) % Lymphocytes (Manual) (19.3-51.7) % Monocytes (Manual) (4.7-12.5) % Toxic Granulation Platelet Estimate (NORMAL) RBC Morphology Anisocytosis Sodium (135-145) mmol/L Potassium (3.5-5.1) mmol/L Chloride (98-107) mmol/L Carbon Dioxide (22-30) mmol/L Anion Gap (5-15) MEQ/L BUN (7-17) mg/dL Creatinine (0.52-1.04) mg/dL Estimated GFR ML/MIN Glucose (74-106) mg/dL POC Glucometer 153 H 165 H 140 H (74 to 106) mg/dL Calcium (8.4-10.2) mg/dL Magnesium (1.6-2.3) mg/dL Total Bilirubin (0.2-1.3) mg/dL AST (14-36) U/L ALT (0-35) U/L Alkaline Phosphatase (38-126) U/L Serum Total Protein (6.3-8.2) g/dL Albumin (3.5-5.0) g/dL Radiology Exams: Radiology Procedures Category Date Time Status CHEST WITH CONTRAST [CT] Stat Exams 05/24/24 07:49 Completed Multi-Disciplinary Progress Notes: Multi-Disciplinary Progress Notes 05/25/24 12:22 Case Management Note by Oneyda Mcnulty NO CHANGE IN DC PLANS AT THIS TIME Initialized on 05/25/24 12:22 - END OF NOTE Assessment/Plan (1) Influenza A Current Visit: Yes Status: Acute Assessment & Plan: - Tamiflu started -CXR with no acute findings - Continue IVF, steroids, duonebs, - Antiemetic, Tylenol PRN - CBC, CMP reviewed - WBC reviewed on admission at 12.2 - Tylenol, heating pad for abd pain 2:2 coughing - Tessalon TID PRN cough -Add robitussin AC - baseline RA -supplemental oxygen with goal spo2 > 92%- patient currently requiring HF NC 40L and 50% Fio2 - RT eval and treat -CT chest w/pe protocol - pending 05/25: -CT chest reviewed showing groundglass airspace disease -Ceftriaxone/azith started 05/24/23 -Oxygen now at 4L NC 05/26: -Pulm consult pending - appreciate recs -Continue abx/steroid, add flutter -encourage ambulation, IS and flutter -mucinex Code(s): J10.1 - FLU DUE TO OTH IDENT INFLUENZA VIRUS W OTH RESP MANIFEST Pneumonia -CT with ground glass airspace disease - see arf for plan (2) History of asthma Current Visit: Yes Status: Acute Assessment & Plan: -Adds to complexity -See the above plan for flu Code(s): Z87.09 - PERSONAL HISTORY OF OTHER DISEASES OF THE RESPIRATORY SYSTEM (3) HTN (hypertension) Current Visit: Yes Status: Acute Assessment & Plan: - Restart home meds - BP stable Code(s): I10 - ESSENTIAL (PRIMARY) HYPERTENSION (4) Tachycardia Current Visit: Yes Status: Acute Assessment & Plan: - Tele - restart home meds -TSH WNL Code(s): R00.0 - TACHYCARDIA, UNSPECIFIED (5) Yeast dermatitis Current Visit: Yes Status: Acute Assessment & Plan: -nystatin powder -pillowcases between abd. folds Code(s): B37.2 - CANDIDIASIS OF SKIN AND NAIL (6) Anxiety and depression Current Visit: Yes Status: Chronic Assessment & Plan: -Continue home meds -consider adding ati Code(s): F41.9 - ANXIETY DISORDER, UNSPECIFIED; F32.A - DEPRESSION, UNSPECIFIED (7) Hypothyroidism Current Visit: Yes Status: Chronic Assessment & Plan: -Continue Synthroid Code(s): E03.9 - HYPOTHYROIDISM, UNSPECIFIED (8) Morbid obesity Current Visit: Yes Status: Chronic Assessment & Plan: -Advised diet and exercise control VTE: Lovenox PPI: Protonix Next of KIN: Parents- Yinka and Zahira D/C plan: 1-2 days Code status: Full Code(s): J10.1 - FLU DUE TO OTH IDENT INFLUENZA VIRUS W OTH RESP MANIFEST (2) History of asthma Current Visit: Yes Status: Acute Code(s): Z87.09 - PERSONAL HISTORY OF OTHER DISEASES OF THE RESPIRATORY SYSTEM (3) HTN (hypertension) Current Visit: Yes Status: Acute Code(s): I10 - ESSENTIAL (PRIMARY) HYPERTENSION (4) Tachycardia Current Visit: Yes Status: Acute Code(s): R00.0 - TACHYCARDIA, UNSPECIFIED (5) Yeast dermatitis Current Visit: Yes Status: Acute Code(s): B37.2 - CANDIDIASIS OF SKIN AND NAIL (6) Anxiety and depression Current Visit: Yes Status: Chronic Code(s): F41.9 - ANXIETY DISORDER, UNSPECIFIED; F32.A - DEPRESSION, UNSPECIFIED (7) Hypothyroidism Current Visit: Yes Status: Chronic Code(s): E03.9 - HYPOTHYROIDISM, UNSPECIFIED (8) Morbid obesity Current Visit: Yes Status: Chronic Code(s): E66.01 - MORBID (SEVERE) OBESITY DUE TO EXCESS CALORIES
[2024-05-26 05:31] LABS: ALBUMIN 3.5 g/dL (3.5-5.0); ANION GAP 9.4 MEQ/L (5-15); BILIRUBIN,TOTAL 0.3 mg/dL (0.2-1.3); Calcium 9.1 mg/dL (8.4-10.2); Creatinine 1 0.73 mg/dL (0.52-1.04); EST GLOMERULAR FILTRATION RATE 114.1 ML/MIN; MAGNESIUM 2.3 mg/dL (1.6-2.3); Potassium 4.4 mmol/L (3.5-5.1); Total Protein 6.4 g/dL (6.3-8.2)
[2024-05-26] MEDS ORDERED: solu-MEDROL 60 MG, Sterile H2O 10 ml 1 ML IV SCH ×2 (13:16→22:00)
[2024-05-26] MEDS: Mucinex 600MG ER Tabs PO SCH (14:29)
[2024-05-26] MEDS: solu-MEDROL 60 MG, Sterile H2O 10 ml 1 ML IV SCH (19:44)
--- NOTE | 2024-05-27 05:13 | PCM.NOTE ---
Date and Time: 05/27/24 0509 Subjective Assessment: Ms. Washington is a 28-year-old female with PMHX of Irritable bowel disease, Crohn's Disease, GERD, gallbladder Disease, migraines, seizures, asthma, hypothyroidism, anxiety, depression, and chronic morbid obesity admitted 05/23/24 with Flu A after presenting to ED with a two day history of cough, fever, and vomiting. On presentation patient was tachycardic and tachypneic. EKG Sinus Tach, NORMAL AXIS, NORMAL INTERVALS, NORMAL QRS, Non-specific ST Changes. CXR with no acute findings.CT chest with Recurrent diffuse bilateral patchy groundglass airspace disease. Negative for PE. Labs remarkable for leukocytosis with WBC 12.2, CO2 18. In ER 1LNS fluid bolus, Zofran, steroids, and duoneb were provided. IP treatment with tamiflu, solumedrol, IVF, and supportive care. Dr. Barreto consulted on patient 05/26/24 and recommended changing solumedrol to 60mg q6h and placing her on CPAP. 05/24/24: Overnight events noted of increased use of oxygen. Patient now on HF 40L at 50% FiO2. Patient endorses increased dyspnea and cough with pain in her abdomen and back from coughing. Patient also endorsing diarrhea. Will order CT Chest w/ PE protocol today. Continue treatment for fluA until CT report. 05/25: CT chest with Recurrent diffuse bilateral patchy groundglass airspace disease. Negative for PE. Ceftriaxone and azithromycin initiated 05/24/24. Patient now on 4L NC from HF 40L at 50% FiO2. Endorses improvement in dyspnea and cough. Encouraged ambulation and incentive spirometer. Continue abx, steroid, and tamiflu. Patient does report anxiety this morning. 05/26: Met with patient bedside. Continues to endorse dyspnea and cough. Remains on 4L NC. Consult with pulmonology pending, appreciate recs. Denies fever, cp, abdominal pain, PETERSON, dizziness, N/V/D. 05/27: Discussed case with Dr. Barreto 05/26/24 and solumedrol changed to 60mg q6h and CPAP added. Patient feels that she is doing better today. WBC down-trending. Lung sounds coarse with exp wheezing on auscultation. Patient states she is having frequency with urination. Will order UA. Denies fever,cp, abdominal pain, PETERSON, dizziness, N/V/D. - Review of Systems Constitutional: Weakness Eyes: No Symptoms Ears, Nose, & Throat: No Symptoms Respiratory: Cough, Short Of Breath, Wheezing Cardiac: No Symptoms Abdominal/Gastrointestinal: No Symptoms Genitourinary Symptoms: No Symptoms Musculoskeletal: No Symptoms Skin: No Symptoms Neurological: No Symptoms Psychological: No Symptoms Endocrine: No Symptoms Hematologic/Lymphatic: No Symptoms Immunological/Allergic: No Symptoms Objective Exam General Appearance: no apparent distress Neurologic Exam: alert, oriented x 3 Skin Exam: normal color Wound Assessment: Skin/Wound Assessment Wound/Incision Assessment Start: 05/23/24 17:53 Text: Status: Active Freq: Protocol: Document 05/23/24 17:53 RB (Rec: 05/23/24 17:55 RB [id number]) Wound/Incision Assessment Lower Anterior Abdomen Wound Assessment Admission Wound Type gaulding Dressing Status Dry & Intact Drainage Amount None Drainage Odor Foul Odor Surrounding Tissue Doland Comment nystatin powder and pillow cases placed to keep dry Anterior Abdomen Wound Assessment Admission Wound Type scabs Wound Stage Non Pressure Wound Dressing Status Dry & Intact Drainage Amount None Drainage Odor None/Absent Comment scattered healing wounds noted to anterior abd, pt reports gary from a heating pad, open to air, no bleeding or drainage noted Ears, Nose, Throat Exam: normal ENT inspection Neck Exam: normal inspection Respiratory Exam: crackles/rales, wheezing Cardiovascular Exam: tachycardia Gastrointestinal/Abdomen Exam: soft, normal bowel sounds Extremity Exam: normal inspection Back Exam: normal inspection Pelvic Exam: deferred Rectal Exam: deferred Objective Data Vital Signs: Vital Signs - 24 hr Temp Pulse Resp BP Pulse Ox 05/27/24 05:05 109 H 36 H 96 05/27/24 03:00 98.6 F 123 H 24 132/72 90 L 05/26/24 23:00 97.7 F 92 H 18 143/68 124 H 05/26/24 21:01 110 H 28 H 93 L 05/26/24 19:00 97.6 F 122 H 23 122/62 91 L 05/26/24 17:43 115 H 28 H 91 L 05/26/24 15:03 113 H 28 H 96 05/26/24 15:00 97.9 F 119 H 18 114/84 92 L 05/26/24 11:00 98.1 F 123 H 28 H 128/69 83 L 05/26/24 09:33 123 H 28 H 83 L 05/26/24 07:00 98.1 F 124 H 20 128/69 88 L 05/26/24 06:44 116 H 24 94 L Pain Assessment - Last Documented Pain Intensity 0 Pain Scale Used 0-10 Pain Scale Intake and Output: Intake & Output 05/24/24 05/25/24 05/26/24 05/27/24 11:59 11:59 11:59 11:59 Intake Total 2684 1560 1440 960 Balance 2684 1560 1440 960 Weight 104.5 kg 104.5 kg Lab Results: Lab Results-Last 24 Hours 05/26/24 05/26/24 05/26/24 Range/Units 04:59 04:59 07:23 WBC 18.1 H (3.98-10.04) x10^3/uL RBC 3.43 L (3.93-5.22) x10^6/uL Hgb 10.5 L (11.2-15.7) g/dL Hct 32.5 L (34.1-44.9) % MCV 94.8 (79.4-94.8) fL MCH 30.6 (25.6-32.2) pg MCHC 32.3 (32.2-35.5) g/dL RDW 20.1 H (11.7-14.4) % Plt Count 308 (182-369) x10^3/uL MPV 8.7 L (9.4-12.3) fL Gran % 88.8 H (34.0-71.1) % Immature Gran % (Auto) 0.6 H (0.001-0.429) % Nucleat RBC Rel Count 0.0 (0.00-0.2) % Eos # (Auto) 0.04 (0.04-0.36) x10^3/uL Immature Gran # (Auto) 0.10 H (0.001-0.031) x10^3u/L Absolute Lymphs (auto) 1.10 L (1.18-3.74) x10^3/uL Absolute Monos (auto) 0.76 (0.24-0.86) x10^3/uL Absolute Nucleated RBC 0.00 (0.00-0.012) x10^3u/L Lymphocytes % 6.1 L (19.3-51.7) % Monocytes % 4.2 L (4.7-12.5) % Eosinophils % 0.2 L (0.7-5.8) % Basophils % 0.1 (0.1-1.2) % Absolute Granulocytes 16.07 H (1.56-6.13) x10^3/uL Basophils # 0.01 (0.01-0.08) x10^3/uL Sodium 136 (135-145) mmol/L Potassium 4.4 D (3.5-5.1) mmol/L Chloride 106 (98-107) mmol/L Carbon Dioxide 25 (22-30) mmol/L Anion Gap 9.4 (5-15) MEQ/L BUN 5 L (7-17) mg/dL Creatinine 0.73 (0.52-1.04) mg/dL Estimated GFR 114.1 ML/MIN Glucose 139 H (74-106) mg/dL POC Glucometer 169 H (74 to 106) mg/dL Calcium 9.1 (8.4-10.2) mg/dL Magnesium 2.3 (1.6-2.3) mg/dL Total Bilirubin 0.30 (0.2-1.3) mg/dL AST 96 H (14-36) U/L ALT 39 H (0-35) U/L Alkaline Phosphatase 119 (38-126) U/L Serum Total Protein 6.4 (6.3-8.2) g/dL Albumin 3.5 (3.5-5.0) g/dL 05/26/24 05/26/24 05/26/24 Range/Units 11:15 16:20 20:55 WBC (3.98-10.04) x10^3/uL RBC (3.93-5.22) x10^6/uL Hgb (11.2-15.7) g/dL Hct (34.1-44.9) % MCV (79.4-94.8) fL MCH (25.6-32.2) pg MCHC (32.2-35.5) g/dL RDW (11.7-14.4) % Plt Count (182-369) x10^3/uL MPV (9.4-12.3) fL Gran % (34.0-71.1) % Immature Gran % (Auto) (0.001-0.429) % Nucleat RBC Rel Count (0.00-0.2) % Eos # (Auto) (0.04-0.36) x10^3/uL Immature Gran # (Auto) (0.001-0.031) x10^3u/L Absolute Lymphs (auto) (1.18-3.74) x10^3/uL Absolute Monos (auto) (0.24-0.86) x10^3/uL Absolute Nucleated RBC (0.00-0.012) x10^3u/L Lymphocytes % (19.3-51.7) % Monocytes % (4.7-12.5) % Eosinophils % (0.7-5.8) % Basophils % (0.1-1.2) % Absolute Granulocytes (1.56-6.13) x10^3/uL Basophils # (0.01-0.08) x10^3/uL Sodium (135-145) mmol/L Potassium (3.5-5.1) mmol/L Chloride (98-107) mmol/L Carbon Dioxide (22-30) mmol/L Anion Gap (5-15) MEQ/L BUN (7-17) mg/dL Creatinine (0.52-1.04) mg/dL Estimated GFR ML/MIN Glucose (74-106) mg/dL POC Glucometer 151 H 182 H 147 H (74 to 106) mg/dL Calcium (8.4-10.2) mg/dL Magnesium (1.6-2.3) mg/dL Total Bilirubin (0.2-1.3) mg/dL AST (14-36) U/L ALT (0-35) U/L Alkaline Phosphatase (38-126) U/L Serum Total Protein (6.3-8.2) g/dL Albumin (3.5-5.0) g/dL Multi-Disciplinary Progress Notes: Multi-Disciplinary Progress Notes 05/26/24 12:19 Case Management Note by Oneyda Mcnulty NO CHANGES IN DC PLANS AT THIS TIME Initialized on 05/26/24 12:19 - END OF NOTE 05/26/24 10:32 Respiratory Note by Viviane Acharya SPO2 95% ON 6LPM WHILE ASLEEP Initialized on 05/26/24 10:32 - END OF NOTE 05/26/24 09:45 Respiratory Note by Viviane Acharya SPO2 91% ON 6LPM AT REST Initialized on 05/26/24 09:45 - END OF NOTE Assessment/Plan (1) Influenza A Current Visit: Yes Status: Acute Assessment & Plan: - Tamiflu started -CXR with no acute findings - Continue IVF, steroids, duonebs, - Antiemetic, Tylenol PRN - CBC, CMP reviewed - WBC reviewed on admission at 12.2 - Tylenol, heating pad for abd pain 2:2 coughing - Tessalon TID PRN cough -Add robitussin AC - baseline RA -supplemental oxygen with goal spo2 > 92%- patient currently requiring HF NC 40L and 50% Fio2 - RT eval and treat -CT chest w/pe protocol - pending 05/25: -CT chest reviewed showing groundglass airspace disease -Ceftriaxone/azith started 05/24/23 -Oxygen now at 4L NC 05/26: -Pulm consult pending - appreciate recs -Continue abx/steroid, add flutter -encourage ambulation, IS and flutter -mucinex 05/27: -Discussed case with Dr. Barreto- after seeing patient 05/26/24 he recommended changing solumedrol to 60mg q6h and placing her on CPAP- agree with plan -Reviewed CBC - WBC count downtrending 13.4<18.1 ##Frequency with urination -Check UA Code(s): J10.1 - FLU DUE TO OTH IDENT INFLUENZA VIRUS W OTH RESP MANIFEST Pneumonia -CT with ground glass airspace disease - see arf for plan (2) History of asthma Current Visit: Yes Status: Acute Assessment & Plan: -Adds to complexity -See the above plan for flu Code(s): Z87.09 - PERSONAL HISTORY OF OTHER DISEASES OF THE RESPIRATORY SYSTEM (3) HTN (hypertension) Current Visit: Yes Status: Acute Assessment & Plan: - Restart home meds - BP stable Code(s): I10 - ESSENTIAL (PRIMARY) HYPERTENSION (4) Tachycardia Current Visit: Yes Status: Acute Assessment & Plan: - Tele - restart home meds -TSH WNL Code(s): R00.0 - TACHYCARDIA, UNSPECIFIED (5) Yeast dermatitis Current Visit: Yes Status: Acute Assessment & Plan: -nystatin powder -pillowcases between abd. folds Code(s): B37.2 - CANDIDIASIS OF SKIN AND NAIL (6) Anxiety and depression Current Visit: Yes Status: Chronic Assessment & Plan: -Continue home meds -consider adding ati Code(s): F41.9 - ANXIETY DISORDER, UNSPECIFIED; F32.A - DEPRESSION, UNSPECIFIED (7) Hypothyroidism Current Visit: Yes Status: Chronic Assessment & Plan: -Continue Synthroid Code(s): E03.9 - HYPOTHYROIDISM, UNSPECIFIED (8) Morbid obesity Current Visit: Yes Status: Chronic Assessment & Plan: -Advised diet and exercise control VTE: Lovenox PPI: Protonix Next of KIN: Parents- Yinka and Zahira D/C plan: 1-2 days Code status: Full Code(s): J10.1 - FLU DUE TO OTH IDENT INFLUENZA VIRUS W OTH RESP MANIFEST Code(s): J10.1 - FLU DUE TO OTH IDENT INFLUENZA VIRUS W OTH RESP MANIFEST (2) History of asthma Current Visit: Yes Status: Acute Code(s): Z87.09 - PERSONAL HISTORY OF OTHER DISEASES OF THE RESPIRATORY SYSTEM (3) HTN (hypertension) Current Visit: Yes Status: Acute Code(s): I10 - ESSENTIAL (PRIMARY) HYPERTENSION (4) Tachycardia Current Visit: Yes Status: Acute Code(s): R00.0 - TACHYCARDIA, UNSPECIFIED (5) Yeast dermatitis Current Visit: Yes Status: Acute Code(s): B37.2 - CANDIDIASIS OF SKIN AND NAIL (6) Anxiety and depression Current Visit: Yes Status: Chronic Code(s): F41.9 - ANXIETY DISORDER, UNSPECIFIED; F32.A - DEPRESSION, UNSPECIFIED (7) Hypothyroidism Current Visit: Yes Status: Chronic Code(s): E03.9 - HYPOTHYROIDISM, UNSPECIFIED (8) Morbid obesity Current Visit: Yes Status: Chronic Code(s): E66.01 - MORBID (SEVERE) OBESITY DUE TO EXCESS CALORIES (9) Frequency of urination Current Visit: Yes Status: Acute Code(s): R35.0 - FREQUENCY OF MICTURITION
[2024-05-27 06:40] LABS: BASOPHIL % 0.1 % (0.1-1.2); Basophil (Absolute #) 0.02 x10^3/uL (0.01-0.08); Eosinophil % 0.1 % (0.7-5.8); Eosinophil (Absolute #) 0.01 x10^3/uL (0.04-0.36); Hemoglobin 10.2 g/dL (11.2-15.7); IMMATURE GRAN % 0.7 % (0.001-0.429); Mean Cell Volume 96.7 fL (79.4-94.8); Mean Corpuscular Hemoglobin 30.8 pg (25.6-32.2); Mean Corpuscular Hgb Concent. 31.9 g/dL (32.2-35.5); Mean Platelet Volume 8.9 fL (9.4-12.3); Monocyte (Absolute #) 0.42 x10^3/uL (0.24-0.86); Monocytes % 3.1 % (4.7-12.5); Platelet Count 209 x10^3/uL (182-369); Red Blood Count 3.31 x10^6/uL (3.93-5.22); Red Cell Distribution Width 19.8 % (11.7-14.4); White Blood Count 13.4 x10^3/uL (3.98-10.04)
[2024-05-27 07:50] LABS: ALBUMIN 3.4 g/dL (3.5-5.0); ANION GAP 9.3 MEQ/L (5-15); BILIRUBIN,TOTAL 0.4 mg/dL (0.2-1.3); Creatinine 1 0.72 mg/dL (0.52-1.04); MAGNESIUM 2.2 mg/dL (1.6-2.3); Potassium 4.1 mmol/L (3.5-5.1); Total Protein 6.3 g/dL (6.3-8.2)
--- NOTE | 2024-05-27 13:39 | CONS ---
REASON FOR CONSULTATION: Evaluation of hypoxemia, bronchial asthma. Patient has tested positive for influenza A. HISTORY: The patient is a 28-year-old woman with history of asthma, which appears to be mild intermittent, on albuterol p.r.n. use, who has been sick for the past few days. Patient has been hospitalized since 05/24/2024. A chest CT and x-ray on admission did show diffuse patchy ground glass infiltrates involving right lung more than left. Patient does report dry cough. She has been requiring supplemental oxygen. Arterial blood gas performed on 4L showed moderate hypoxemia. The patient reports her asthma is well under control. She has never had any other pulmonary issues. She was not vaccinated this past fall/winter for influenza. PAST MEDICAL HISTORY: As above. PAST SURGICAL HISTORY: No recent surgeries. PERSONAL AND SOCIAL HISTORY: Noted. MEDICATIONS: Reviewed. ALLERGIES: Noted. PHYSICAL EXAMINATION: GENERAL: This is a young woman, comfortable, sitting in recliner on oxygen via nasal cannula at 4L. HEENT: Normocephalic. Oral exam unremarkable. CARDIOVASCULAR: First and second heart sounds to be normal, regular, rhythmic. RESPIRATORY: Diminished breath sounds. Bilateral rhonchi heard, again, right more than left. ABDOMEN: Soft. No rebound is noted. LABORATORY DATA AND TESTS: Lab, x-rays, CT were reviewed. ASSESSMENT: 1) This is a 28-year-old woman admitted with acute hypoxic respiratory failure. 2) Influenza A positive on Tamiflu. 3) History of bronchial asthma, mild intermittent in nature. RECOMMENDATIONS: 1) I have reviewed the CT chest. Patient requires a higher dose of steroids. Recommend increasing Solu-Medrol to 60 mg q.6 for at least a day following which it can be tapered. 2) Patient will benefit from noninvasive ventilation as tolerated with CPAP starting at 10 cm of water with supplemental oxygen. 3) Other medications were reviewed. 4) Await clinical improvement. 5) Advised to follow up with me in outpatient. 6) Will be available as needed for recommendations during hospital stay.
[2024-05-27] MEDS ORDERED: Ativan 0.5 MG PO PRN (15:30)
[2024-05-27] MEDS: Ativan 2 MG/1 ML VIAL IV PRN (16:30)
[2024-05-28 05:10] LABS: Absolute Neutrophil Ct (ANC) 14.55 x10^3/uL (1.56-6.13); BASOPHIL % 0.2 % (0.1-1.2); Basophil (Absolute #) 0.03 x10^3/uL (0.01-0.08); Eosinophil % 0.1 % (0.7-5.8); Eosinophil (Absolute #) 0.01 x10^3/uL (0.04-0.36); Hematocrit 32.3 % (34.1-44.9); Hemoglobin 10.3 g/dL (11.2-15.7); IMMATURE GRAN # 0.19 x10^3u/L (0.001-0.031); IMMATURE GRAN % 1.1 % (0.001-0.429); Lymphocyte (Absolute #) 1.18 x10^3/uL (1.18-3.74); Lymphocytes % 7.1 % (19.3-51.7); Mean Cell Volume 95.3 fL (79.4-94.8); Mean Corpuscular Hemoglobin 30.4 pg (25.6-32.2); Mean Corpuscular Hgb Concent. 31.9 g/dL (32.2-35.5); Mean Platelet Volume 8.7 fL (9.4-12.3); Monocyte (Absolute #) 0.67 x10^3/uL (0.24-0.86); Neutrophil % 87.5 % (34.0-71.1); Platelet Count 211 x10^3/uL (182-369); Red Blood Count 3.39 x10^6/uL (3.93-5.22); Red Cell Distribution Width 19.1 % (11.7-14.4); White Blood Count 16.6 x10^3/uL (3.98-10.04)
[2024-05-28 05:33] LABS: ALBUMIN 3.5 g/dL (3.5-5.0); ANION GAP 7.8 MEQ/L (5-15); BILIRUBIN,TOTAL 0.5 mg/dL (0.2-1.3); Creatinine 1 0.77 mg/dL (0.52-1.04); MAGNESIUM 2.2 mg/dL (1.6-2.3); Potassium 3.9 mmol/L (3.5-5.1); Total Protein 6.4 g/dL (6.3-8.2)
--- NOTE | 2024-05-28 05:41 | PCM.NOTE ---
Date and Time: 05/28/24 0540 Subjective Assessment: HPI: Ms. Washington is a 28-year-old female with PMHX of Irritable bowel disease, Crohn's Disease, GERD, gallbladder Disease, migraines, seizures, asthma, hypothyroidism, anxiety, depression, and chronic morbid obesity admitted 05/23/24 with Flu A after presenting to ED with a two day history of cough, fever, and vomiting. On presentation patient was tachycardic and tachypneic. EKG Sinus Tach, NORMAL AXIS, NORMAL INTERVALS, NORMAL QRS, Non-specific ST Changes. CXR with no acute findings.CT chest with Recurrent diffuse bilateral patchy groundglass airspace disease. Negative for PE. Labs remarkable for leukocytosis with WBC 12.2, CO2 18. In ER 1LNS fluid bolus, Zofran, steroids, and duoneb were provided. IP treatment with tamiflu, solumedrol, IVF, and supportive care. Dr. Barreto consulted on patient 05/26/24 and recommended changing solumedrol to 60mg q6h and placing her on CPAP. 05/24/24: Overnight events noted of increased use of oxygen. Patient now on HF 40L at 50% FiO2. Patient endorses increased dyspnea and cough with pain in her abdomen and back from coughing. Patient also endorsing diarrhea. Will order CT Chest w/ PE protocol today. Continue treatment for fluA until CT report. 05/25: CT chest with Recurrent diffuse bilateral patchy groundglass airspace disease. Negative for PE. Ceftriaxone and azithromycin initiated 05/24/24. Patient now on 4L NC from HF 40L at 50% FiO2. Endorses improvement in dyspnea and cough. Encouraged ambulation and incentive spirometer. Continue abx, steroid, and tamiflu. Patient does report anxiety this morning. 05/26: Met with patient bedside. Continues to endorse dyspnea and cough. Remains on 4L NC. Consult with pulmonology pending, appreciate recs. Denies fever, cp, abdominal pain, PETERSON, dizziness, N/V/D. 05/27: Discussed case with Dr. Barreto 05/26/24 and solumedrol changed to 60mg q6h and CPAP added. Patient feels that she is doing better today. WBC down-trending. Lung sounds coarse with exp wheezing on auscultation. Patient states she is having frequency with urination. Will order UA. Denies fever,cp, abdominal pain, PETERSON, dizziness, N/V/D. 05/28: No overnight events noted. Dyspnea and cough improving. Patient on 10L oxymizer. Lung sounds with exp wheezing and coarse crackles. Patient states she is having mult episodes of diarrhea. Will check stools today. - Review of Systems Constitutional: No Symptoms Eyes: No Symptoms Ears, Nose, & Throat: No Symptoms Respiratory: Cough, Short Of Breath, Wheezing Cardiac: No Symptoms Abdominal/Gastrointestinal: Diarrhea Genitourinary Symptoms: No Symptoms Musculoskeletal: No Symptoms Skin: No Symptoms Neurological: No Symptoms Psychological: No Symptoms Endocrine: No Symptoms Hematologic/Lymphatic: No Symptoms Immunological/Allergic: No Symptoms Objective Exam General Appearance: no apparent distress Neurologic Exam: alert, oriented x 3, cooperative Skin Exam: normal color Wound Assessment: Skin/Wound Assessment Wound/Incision Assessment Start: 05/23/24 17:53 Text: Status: Active Freq: Protocol: Document 05/23/24 17:53 RB (Rec: 05/23/24 17:55 RB [id number]) Wound/Incision Assessment Lower Anterior Abdomen Wound Assessment Admission Wound Type gaulding Dressing Status Dry & Intact Drainage Amount None Drainage Odor Foul Odor Surrounding Tissue [place] Comment nystatin powder and pillow cases placed to keep dry Anterior Abdomen Wound Assessment Admission Wound Type scabs Wound Stage Non Pressure Wound Dressing Status Dry & Intact Drainage Amount None Drainage Odor None/Absent Comment scattered healing wounds noted to anterior abd, pt reports gary from a heating pad, open to air, no bleeding or drainage noted Eye Exam: PERRL Ears, Nose, Throat Exam: normal ENT inspection Neck Exam: normal inspection Respiratory Exam: diminished breath sounds, crackles/rales, wheezing Cardiovascular Exam: tachycardia Gastrointestinal/Abdomen Exam: soft, normal bowel sounds Extremity Exam: normal inspection Back Exam: normal inspection Pelvic Exam: deferred Rectal Exam: deferred Objective Data Vital Signs: Vital Signs - 24 hr Temp Pulse Resp BP Pulse Ox 05/28/24 05:05 105 H 47 H 94 L 05/28/24 03:00 97.4 F 131 H 30 H 124/62 92 L 05/27/24 23:00 96 H 05/27/24 22:30 111 H 26 H 93 L 05/27/24 19:00 97.0 F 120 H 23 115/65 95 05/27/24 16:59 110 H 24 90 L 05/27/24 15:54 91 L 05/27/24 15:00 98.1 F 127 H 16 101/58 93 L 05/27/24 14:14 122 H 26 H 92 L 05/27/24 11:00 98.0 F 123 H 16 107/59 95 05/27/24 10:24 109 H 24 95 05/27/24 07:00 97.8 F 122 H 16 113/64 88 L 05/27/24 06:00 90 L Pain Assessment - Last Documented Pain Intensity 0 Pain Scale Used 0-10 Pain Scale Intake and Output: Intake & Output 05/25/24 05/26/24 05/27/24 05/28/24 11:59 11:59 11:59 11:59 Intake Total 1560 1440 1200 1820 Output Total 650 Balance 1560 1440 1200 1170 Weight 104.5 kg Lab Results: Lab Results-Last 24 Hours 05/27/24 05/27/24 05/27/24 Range/Units 06:36 06:36 07:05 WBC 13.4 H (3.98-10.04) x10^3/uL RBC 3.31 L (3.93-5.22) x10^6/uL Hgb 10.2 L (11.2-15.7) g/dL Hct 32.0 L (34.1-44.9) % MCV 96.7 H (79.4-94.8) fL MCH 30.8 (25.6-32.2) pg MCHC 31.9 L (32.2-35.5) g/dL RDW 19.8 H (11.7-14.4) % Plt Count 209 (182-369) x10^3/uL MPV 8.9 L (9.4-12.3) fL Gran % 90.0 H (34.0-71.1) % Immature Gran % (Auto) 0.7 H (0.001-0.429) % Nucleat RBC Rel Count 0.0 (0.00-0.2) % Eos # (Auto) 0.01 L (0.04-0.36) x10^3/uL Immature Gran # (Auto) 0.10 H (0.001-0.031) x10^3u/L Absolute Lymphs (auto) 0.80 L (1.18-3.74) x10^3/uL Absolute Monos (auto) 0.42 (0.24-0.86) x10^3/uL Absolute Nucleated RBC 0.00 (0.00-0.012) x10^3u/L Lymphocytes % 6.0 L (19.3-51.7) % Monocytes % 3.1 L (4.7-12.5) % Eosinophils % 0.1 L (0.7-5.8) % Basophils % 0.1 (0.1-1.2) % Absolute Granulocytes 12.00 H (1.56-6.13) x10^3/uL Basophils # 0.02 (0.01-0.08) x10^3/uL Sodium 137 (135-145) mmol/L Potassium 4.1 (3.5-5.1) mmol/L Chloride 106 (98-107) mmol/L Carbon Dioxide 26 (22-30) mmol/L Anion Gap 9.3 (5-15) MEQ/L BUN 3 L (7-17) mg/dL Creatinine 0.72 (0.52-1.04) mg/dL Estimated GFR 116.0 ML/MIN Glucose 161 H (74-106) mg/dL POC Glucometer 150 H (74 to 106) mg/dL Calcium 9.0 (8.4-10.2) mg/dL Magnesium 2.2 (1.6-2.3) mg/dL Total Bilirubin 0.40 (0.2-1.3) mg/dL AST 94 H (14-36) U/L ALT 47 H (0-35) U/L Alkaline Phosphatase 95 (38-126) U/L Serum Total Protein 6.3 (6.3-8.2) g/dL Albumin 3.4 L (3.5-5.0) g/dL 05/27/24 05/27/24 05/27/24 Range/Units 11:20 16:17 21:01 WBC (3.98-10.04) x10^3/uL RBC (3.93-5.22) x10^6/uL Hgb (11.2-15.7) g/dL Hct (34.1-44.9) % MCV (79.4-94.8) fL MCH (25.6-32.2) pg MCHC (32.2-35.5) g/dL RDW (11.7-14.4) % Plt Count (182-369) x10^3/uL MPV (9.4-12.3) fL Gran % (34.0-71.1) % Immature Gran % (Auto) (0.001-0.429) % Nucleat RBC Rel Count (0.00-0.2) % Eos # (Auto) (0.04-0.36) x10^3/uL Immature Gran # (Auto) (0.001-0.031) x10^3u/L Absolute Lymphs (auto) (1.18-3.74) x10^3/uL Absolute Monos (auto) (0.24-0.86) x10^3/uL Absolute Nucleated RBC (0.00-0.012) x10^3u/L Lymphocytes % (19.3-51.7) % Monocytes % (4.7-12.5) % Eosinophils % (0.7-5.8) % Basophils % (0.1-1.2) % Absolute Granulocytes (1.56-6.13) x10^3/uL Basophils # (0.01-0.08) x10^3/uL Sodium (135-145) mmol/L Potassium (3.5-5.1) mmol/L Chloride (98-107) mmol/L Carbon Dioxide (22-30) mmol/L Anion Gap (5-15) MEQ/L BUN (7-17) mg/dL Creatinine (0.52-1.04) mg/dL Estimated GFR ML/MIN Glucose (74-106) mg/dL POC Glucometer 170 H 191 H 170 H (74 to 106) mg/dL Calcium (8.4-10.2) mg/dL Magnesium (1.6-2.3) mg/dL Total Bilirubin (0.2-1.3) mg/dL AST (14-36) U/L ALT (0-35) U/L Alkaline Phosphatase (38-126) U/L Serum Total Protein (6.3-8.2) g/dL Albumin (3.5-5.0) g/dL 05/28/24 05/28/24 Range/Units 05:06 05:06 WBC 16.6 H (3.98-10.04) x10^3/uL RBC 3.39 L (3.93-5.22) x10^6/uL Hgb 10.3 L (11.2-15.7) g/dL Hct 32.3 L (34.1-44.9) % MCV 95.3 H (79.4-94.8) fL MCH 30.4 (25.6-32.2) pg MCHC 31.9 L (32.2-35.5) g/dL RDW 19.1 H (11.7-14.4) % Plt Count 211 (182-369) x10^3/uL MPV 8.7 L (9.4-12.3) fL Gran % 87.5 H (34.0-71.1) % Immature Gran % (Auto) 1.1 H (0.001-0.429) % Nucleat RBC Rel Count 0.0 (0.00-0.2) % Eos # (Auto) 0.01 L (0.04-0.36) x10^3/uL Immature Gran # (Auto) 0.19 H (0.001-0.031) x10^3u/L Absolute Lymphs (auto) 1.18 (1.18-3.74) x10^3/uL Absolute Monos (auto) 0.67 (0.24-0.86) x10^3/uL Absolute Nucleated RBC 0.00 (0.00-0.012) x10^3u/L Lymphocytes % 7.1 L (19.3-51.7) % Monocytes % 4.0 L (4.7-12.5) % Eosinophils % 0.1 L (0.7-5.8) % Basophils % 0.2 (0.1-1.2) % Absolute Granulocytes 14.55 H (1.56-6.13) x10^3/uL Basophils # 0.03 (0.01-0.08) x10^3/uL Sodium 136 (135-145) mmol/L Potassium 3.9 (3.5-5.1) mmol/L Chloride 103 (98-107) mmol/L Carbon Dioxide 29 (22-30) mmol/L Anion Gap 7.8 (5-15) MEQ/L BUN 6 L (7-17) mg/dL Creatinine 0.77 (0.52-1.04) mg/dL Estimated GFR 107.0 ML/MIN Glucose 156 H (74-106) mg/dL POC Glucometer (74 to 106) mg/dL Calcium 9.0 (8.4-10.2) mg/dL Magnesium 2.2 (1.6-2.3) mg/dL Total Bilirubin 0.50 (0.2-1.3) mg/dL AST 77 H (14-36) U/L ALT 50 H (0-35) U/L Alkaline Phosphatase 113 (38-126) U/L Serum Total Protein 6.4 (6.3-8.2) g/dL Albumin 3.5 (3.5-5.0) g/dL Multi-Disciplinary Progress Notes: Multi-Disciplinary Progress Notes 05/27/24 10:20 Case Management Note by Oneyda Mcnulty S/W PATIENT- SHE DENIES ANY NEW NEEDS AT TIME OF DC. SHE FEELS SHE WILL BE ABLE TO CARE FOR HERSELF AT HOME. IF OXYGEN IS REQUIRED AT DC SHE WOULD LIKE TO USE [place]. Initialized on 05/27/24 10:20 - END OF NOTE Assessment/Plan (1) Influenza A Current Visit: Yes Status: Acute Assessment & Plan: - Tamiflu started -CXR with no acute findings - Continue IVF, steroids, duonebs, - Antiemetic, Tylenol PRN - CBC, CMP reviewed - WBC reviewed on admission at 12.2 - Tylenol, heating pad for abd pain 2:2 coughing - Tessalon TID PRN cough -Add robitussin AC - baseline RA -supplemental oxygen with goal spo2 > 92%- patient currently requiring HF NC 40L and 50% Fio2 - RT eval and treat -CT chest w/pe protocol - pending 05/25: -CT chest reviewed showing groundglass airspace disease -Ceftriaxone/azith started 05/24/23 -Oxygen now at 4L NC 05/26: -Pulm consult pending - appreciate recs -Continue abx/steroid, add flutter -encourage ambulation, IS and flutter -mucinex 05/27: -Discussed case with Dr. Barreto- after seeing patient 05/26/24 he recommended changing solumedrol to 60mg q6h and placing her on CPAP- agree with plan -Reviewed CBC - WBC count downtrending 13.4<18.1 05/28: -on 10L oxymizer/BIPAP -WBC reviewed at 16.6-most likely from increase of steroids -continue ceftriaxone, dc azithromycin (finished course), solumedrol, dc tamiflu - received full course -repeat cxr tomorrow ##Frequency with urination -Check UA- pending collection ###Diarrhea -CDIFF, stool studies Code(s): J10.1 - FLU DUE TO OTH IDENT INFLUENZA VIRUS W OTH RESP MANIFEST Pneumonia -CT with ground glass airspace disease - see arf for plan (2) History of asthma Current Visit: Yes Status: Acute Assessment & Plan: -Adds to complexity -See the above plan for flu Code(s): Z87.09 - PERSONAL HISTORY OF OTHER DISEASES OF THE RESPIRATORY SYSTEM (3) HTN (hypertension) Current Visit: Yes Status: Acute Assessment & Plan: - Restart home meds - BP stable Code(s): I10 - ESSENTIAL (PRIMARY) HYPERTENSION (4) Tachycardia Current Visit: Yes Status: Acute Assessment & Plan: - Tele - restart home meds -TSH WNL Code(s): R00.0 - TACHYCARDIA, UNSPECIFIED (5) Yeast dermatitis Current Visit: Yes Status: Acute Assessment & Plan: -nystatin powder -pillowcases between abd. folds Code(s): B37.2 - CANDIDIASIS OF SKIN AND NAIL (6) Anxiety and depression Current Visit: Yes Status: Chronic Assessment & Plan: -Continue home meds -consider adding ati Code(s): F41.9 - ANXIETY DISORDER, UNSPECIFIED; F32.A - DEPRESSION, UNSPECIFIED (7) Hypothyroidism Current Visit: Yes Status: Chronic Assessment & Plan: -Continue Synthroid Code(s): E03.9 - HYPOTHYROIDISM, UNSPECIFIED (8) Morbid obesity Current Visit: Yes Status: Chronic Assessment & Plan: -Advised diet and exercise control VTE: Lovenox PPI: Protonix Next of KIN: Parents- Yinka and Zahira D/C plan: 1-2 days Code status: Full Code(s): J10.1 - FLU DUE TO OTH IDENT INFLUENZA VIRUS W OTH RESP MANIFEST (2) History of asthma Current Visit: Yes Status: Acute Code(s): Z87.09 - PERSONAL HISTORY OF OTHER DISEASES OF THE RESPIRATORY SYSTEM (3) HTN (hypertension) Current Visit: Yes Status: Acute Code(s): I10 - ESSENTIAL (PRIMARY) HYPERTENSION (4) Tachycardia Current Visit: Yes Status: Acute Code(s): R00.0 - TACHYCARDIA, UNSPECIFIED (5) Yeast dermatitis Current Visit: Yes Status: Acute Code(s): B37.2 - CANDIDIASIS OF SKIN AND NAIL (6) Anxiety and depression Current Visit: Yes Status: Chronic Code(s): F41.9 - ANXIETY DISORDER, UNSPECIFIED; F32.A - DEPRESSION, UNSPECIFIED (7) Hypothyroidism Current Visit: Yes Status: Chronic Code(s): E03.9 - HYPOTHYROIDISM, UNSPECIFIED (8) Morbid obesity Current Visit: Yes Status: Chronic Code(s): E66.01 - MORBID (SEVERE) OBESITY DUE TO EXCESS CALORIES (9) Frequency of urination Current Visit: Yes Status: Acute Code(s): R35.0 - FREQUENCY OF MICTURITION (10) Diarrhea Current Visit: Yes Status: Acute Code(s): R19.7 - DIARRHEA, UNSPECIFIED
[2024-05-28] MEDS: Ativan 2 MG/1 ML VIAL IV ONE (19:43)
--- NOTE | 2024-05-29 05:21 | PCM.NOTE ---
Date and Time: 05/29/24 0520 Subjective Assessment: HPI: Ms. Washington is a 28-year-old female with PMHX of Irritable bowel disease, Crohn's Disease, GERD, gallbladder Disease, migraines, seizures, asthma, hypothyroidism, anxiety, depression, and chronic morbid obesity admitted 05/23/24 with Flu A after presenting to ED with a two day history of cough, fever, and vomiting. On presentation patient was tachycardic and tachypneic. EKG Sinus Tach, NORMAL AXIS, NORMAL INTERVALS, NORMAL QRS, Non-specific ST Changes. CXR with no acute findings.CT chest with Recurrent diffuse bilateral patchy groundglass airspace disease. Negative for PE. Labs remarkable for leukocytosis with WBC 12.2, CO2 18. In ER 1LNS fluid bolus, Zofran, steroids, and duoneb were provided. IP treatment with tamiflu, solumedrol, IVF, and supportive care. Dr. Barreto consulted on patient 05/26/24 and recommended changing solumedrol to 60mg q6h and placing her on CPAP. 05/24/24: Overnight events noted of increased use of oxygen. Patient now on HF 40L at 50% FiO2. Patient endorses increased dyspnea and cough with pain in her abdomen and back from coughing. Patient also endorsing diarrhea. Will order CT Chest w/ PE protocol today. Continue treatment for fluA until CT report. 05/25: CT chest with Recurrent diffuse bilateral patchy groundglass airspace disease. Negative for PE. Ceftriaxone and azithromycin initiated 05/24/24. Patient now on 4L NC from HF 40L at 50% FiO2. Endorses improvement in dyspnea and cough. Encouraged ambulation and incentive spirometer. Continue abx, steroid, and tamiflu. Patient does report anxiety this morning. 05/26: Met with patient bedside. Continues to endorse dyspnea and cough. Remains on 4L NC. Consult with pulmonology pending, appreciate recs. Denies fever, cp, abdominal pain, PETERSON, dizziness, N/V/D. 05/27: Discussed case with Dr. Barreto 05/26/24 and solumedrol changed to 60mg q6h and CPAP added. Patient feels that she is doing better today. WBC down-trending. Lung sounds coarse with exp wheezing on auscultation. Patient states she is having frequency with urination. Will order UA. Denies fever,cp, abdominal pain, PETERSON, dizziness, N/V/D. 05/28: No overnight events noted. Dyspnea and cough improving. Patient on 10L oxymizer. Lung sounds with exp wheezing and coarse crackles. Patient states she is having mult episodes of diarrhea. Will check stools today. 05/29: Patient endorses improvement in dyspnea and cough. She reports mulitple episodes of diarrhea but stool specimen has not been collected yet. CXR redemonstrating bilateral groundglass airspace disease. Will continue BIPAP/oxymizer alt. Continue steroids. - Review of Systems Constitutional: No Symptoms Eyes: No Symptoms Ears, Nose, & Throat: No Symptoms Respiratory: Cough, Short Of Breath, Wheezing Cardiac: No Symptoms Abdominal/Gastrointestinal: Diarrhea Genitourinary Symptoms: No Symptoms Musculoskeletal: No Symptoms Skin: No Symptoms Neurological: No Symptoms Psychological: No Symptoms Endocrine: No Symptoms Hematologic/Lymphatic: No Symptoms Immunological/Allergic: No Symptoms Objective Exam General Appearance: no apparent distress Neurologic Exam: alert, oriented x 3, cooperative Skin Exam: normal color Wound Assessment: Skin/Wound Assessment Wound/Incision Assessment Start: 05/23/24 17:53 Text: Status: Active Freq: Protocol: Document 05/23/24 17:53 RB (Rec: 05/23/24 17:55 RB [id number]) Wound/Incision Assessment Lower Anterior Abdomen Wound Assessment Admission Wound Type gaulding Dressing Status Dry & Intact Drainage Amount None Drainage Odor Foul Odor Surrounding Tissue [place] Comment nystatin powder and pillow cases placed to keep dry Anterior Abdomen Wound Assessment Admission Wound Type scabs Wound Stage Non Pressure Wound Dressing Status Dry & Intact Drainage Amount None Drainage Odor None/Absent Comment scattered healing wounds noted to anterior abd, pt reports gary from a heating pad, open to air, no bleeding or drainage noted Eye Exam: PERRL Ears, Nose, Throat Exam: normal ENT inspection Neck Exam: normal inspection Respiratory Exam: diminished breath sounds, crackles/rales, wheezing Cardiovascular Exam: tachycardia Gastrointestinal/Abdomen Exam: soft, normal bowel sounds Extremity Exam: normal inspection Back Exam: normal inspection Pelvic Exam: deferred Rectal Exam: deferred Objective Data Vital Signs: Vital Signs - 24 hr Temp Pulse Resp BP BP Pulse Ox 05/29/24 05:05 126 H 20 112/55 05/29/24 02:50 117 H 42 H 97 01/25/25 00:00 97.4 F 123 H 26 H 125/73 93 L 05/28/24 22:15 108 H 36 H 94 L 05/28/24 20:30 109 H 44 H 95 05/28/24 20:00 98.0 F 114 H 22 119/64 97 05/28/24 15:00 98.7 F 124 H 36 H 121/65 95 05/28/24 12:43 120 H 49 H 94 L 05/28/24 11:00 98.7 F 123 H 22 121/65 91 L 05/28/24 09:00 122 H 32 H 94 L 05/28/24 07:40 91 L 05/28/24 07:00 98.7 F 130 H 24 121/67 95 Pain Assessment - Last Documented Pain Intensity 0 Pain Scale Used 0-10 Pain Scale Intake and Output: Intake & Output 05/26/24 05/27/24 05/28/24 05/29/24 11:59 11:59 11:59 11:59 Intake Total 1440 1200 2060 560 Output Total 650 Balance 1440 1200 1410 560 Weight 104.5 kg Lab Results: Lab Results-Last 24 Hours 05/28/24 05/28/24 05/28/24 Range/Units 05:06 07:15 11:08 Sodium 136 (135-145) mmol/L Potassium 3.9 (3.5-5.1) mmol/L Chloride 103 (98-107) mmol/L Carbon Dioxide 29 (22-30) mmol/L Anion Gap 7.8 (5-15) MEQ/L BUN 6 L (7-17) mg/dL Creatinine 0.77 (0.52-1.04) mg/dL Estimated GFR 107.0 ML/MIN Glucose 156 H (74-106) mg/dL POC Glucometer 146 H 170 H (74 to 106) mg/dL Calcium 9.0 (8.4-10.2) mg/dL Magnesium 2.2 (1.6-2.3) mg/dL Total Bilirubin 0.50 (0.2-1.3) mg/dL AST 77 H (14-36) U/L ALT 50 H (0-35) U/L Alkaline Phosphatase 113 (38-126) U/L Serum Total Protein 6.4 (6.3-8.2) g/dL Albumin 3.5 (3.5-5.0) g/dL 05/28/24 05/28/24 Range/Units 17:06 22:24 Sodium (135-145) mmol/L Potassium (3.5-5.1) mmol/L Chloride (98-107) mmol/L Carbon Dioxide (22-30) mmol/L Anion Gap (5-15) MEQ/L BUN (7-17) mg/dL Creatinine (0.52-1.04) mg/dL Estimated GFR ML/MIN Glucose (74-106) mg/dL POC Glucometer 183 H 179 H (74 to 106) mg/dL Calcium (8.4-10.2) mg/dL Magnesium (1.6-2.3) mg/dL Total Bilirubin (0.2-1.3) mg/dL AST (14-36) U/L ALT (0-35) U/L Alkaline Phosphatase (38-126) U/L Serum Total Protein (6.3-8.2) g/dL Albumin (3.5-5.0) g/dL Radiology Exams: Radiology Procedures Category Date Time Status CHEST 1 VIEW (PORTABLE) Routine Exams 05/29/24 08:00 Ordered Multi-Disciplinary Progress Notes: Multi-Disciplinary Progress Notes 05/28/24 11:23 Nutrition Note by Elise Muñoz F/u Note: HH diet con't. Pt resumed po intake; 25-50%. no recent weight available. Labs 05/28= BUN 6, glu 170, alb wnl, hgb 10.3, hct 32.3, mcv 95.3. Goals: #1) maintain po intake >=50% Will monitor and f/u prn. TEDWARD Mohr Initialized on 05/28/24 11:23 - END OF NOTE Assessment/Plan (1) Influenza A Current Visit: Yes Status: Acute Assessment & Plan: - Tamiflu started -CXR with no acute findings - Continue IVF, steroids, duonebs, - Antiemetic, Tylenol PRN - CBC, CMP reviewed - WBC reviewed on admission at 12.2 - Tylenol, heating pad for abd pain 2:2 coughing - Tessalon TID PRN cough -Add robitussin AC - baseline RA -supplemental oxygen with goal spo2 > 92%- patient currently requiring HF NC 40L and 50% Fio2 - RT eval and treat -CT chest w/pe protocol - pending 05/25: -CT chest reviewed showing groundglass airspace disease -Ceftriaxone/azith started 05/24/23 -Oxygen now at 4L NC 05/26: -Pulm consult pending - appreciate recs -Continue abx/steroid, add flutter -encourage ambulation, IS and flutter -mucinex 05/27: -Discussed case with Dr. Barreto- after seeing patient 05/26/24 he recommended changing solumedrol to 60mg q6h and placing her on CPAP- agree with plan -Reviewed CBC - WBC count downtrending 13.4<18.1 05/28: -on 10L oxymizer/BIPAP -WBC reviewed at 16.6-most likely from increase of steroids -continue ceftriaxone, dc azithromycin (finished course), solumedrol, dc tamiflu - received full course -repeat cxr tomorrow 05/29: -CXR reviewed noting re-demonstration of bilateral groundglass airspace disease indicated on CT chest -continue bipap/cpap -WBC reviewed at 18.4- most likely from steroids -sputum culture pending -blood culture pending ##Frequency with urination -Check UA- pending collection ###Diarrhea -CDIFF, stool studies pending collection Code(s): J10.1 - FLU DUE TO OTH IDENT INFLUENZA VIRUS W OTH RESP MANIFEST Pneumonia -CT with ground glass airspace disease - see arf for plan (2) History of asthma Current Visit: Yes Status: Acute Assessment & Plan: -Adds to complexity -See the above plan for flu Code(s): Z87.09 - PERSONAL HISTORY OF OTHER DISEASES OF THE RESPIRATORY SYSTEM (3) HTN (hypertension) Current Visit: Yes Status: Acute Assessment & Plan: - Restart home meds - BP stable Code(s): I10 - ESSENTIAL (PRIMARY) HYPERTENSION (4) Tachycardia Current Visit: Yes Status: Acute Assessment & Plan: - Tele - restart home meds -TSH WNL Code(s): R00.0 - TACHYCARDIA, UNSPECIFIED (5) Yeast dermatitis Current Visit: Yes Status: Acute Assessment & Plan: -nystatin powder -pillowcases between abd. folds Code(s): B37.2 - CANDIDIASIS OF SKIN AND NAIL (6) Anxiety and depression Current Visit: Yes Status: Chronic Assessment & Plan: -Continue home meds -consider adding ati Code(s): F41.9 - ANXIETY DISORDER, UNSPECIFIED; F32.A - DEPRESSION, UNSPECIFIED (7) Hypothyroidism Current Visit: Yes Status: Chronic Assessment & Plan: -Continue Synthroid Code(s): E03.9 - HYPOTHYROIDISM, UNSPECIFIED (8) Morbid obesity Current Visit: Yes Status: Chronic Assessment & Plan: -Advised diet and exercise control VTE: Lovenox PPI: Protonix Next of KIN: Parents- Yinka and Zahira D/C plan: 1-2 days Code status: Full Code(s): J10.1 - FLU DUE TO OTH IDENT INFLUENZA VIRUS W OTH RESP MANIFEST (2) History of asthma Current Visit: Yes Status: Acute Code(s): Z87.09 - PERSONAL HISTORY OF OTHER DISEASES OF THE RESPIRATORY SYSTEM (3) HTN (hypertension) Current Visit: Yes Status: Acute Code(s): I10 - ESSENTIAL (PRIMARY) HYPERTENSION (4) Tachycardia Current Visit: Yes Status: Acute Code(s): R00.0 - TACHYCARDIA, UNSPECIFIED (5) Yeast dermatitis Current Visit: Yes Status: Acute Code(s): B37.2 - CANDIDIASIS OF SKIN AND NAIL (6) Anxiety and depression Current Visit: Yes Status: Chronic Code(s): F41.9 - ANXIETY DISORDER, UNSPECIFIED; F32.A - DEPRESSION, UNSPECIFIED (7) Hypothyroidism Current Visit: Yes Status: Chronic Code(s): E03.9 - HYPOTHYROIDISM, UNSPECIFIED (8) Morbid obesity Current Visit: Yes Status: Chronic Code(s): E66.01 - MORBID (SEVERE) OBESITY DUE TO EXCESS CALORIES (9) Frequency of urination Current Visit: Yes Status: Acute Code(s): R35.0 - FREQUENCY OF MICTURITION (10) Diarrhea Current Visit: Yes Status: Acute Code(s): R19.7 - DIARRHEA, UNSPECIFIED
--- NOTE | 2024-05-29 08:29 | XRAY ---
Indication: Short of breath. Comparison: May 23, 2024 Portable chest now demonstrates diffuse bilateral patchy groundglass airspace disease without consolidation/large effusion. Heart not enlarged.
[2024-05-29 09:24] LABS: Hematocrit 30.6 % (34.1-44.9); Hemoglobin 9.9 g/dL (11.2-15.7); Mean Corpuscular Hemoglobin 30.7 pg (25.6-32.2); Mean Corpuscular Hgb Concent. 32.4 g/dL (32.2-35.5); Mean Platelet Volume 9.1 fL (9.4-12.3); Platelet Count 211 x10^3/uL (182-369); Red Blood Count 3.22 x10^6/uL (3.93-5.22); Red Cell Distribution Width 18.7 % (11.7-14.4); White Blood Count 18.4 x10^3/uL (3.98-10.04)
[2024-05-29 09:46] LABS: ALBUMIN 3.4 g/dL (3.5-5.0); ANION GAP 6.5 MEQ/L (5-15); BILIRUBIN,TOTAL 0.4 mg/dL (0.2-1.3); Creatinine 1 0.73 mg/dL (0.52-1.04); EST GLOMERULAR FILTRATION RATE 114.1 ML/MIN; MAGNESIUM 2.4 mg/dL (1.6-2.3); Potassium 3.8 mmol/L (3.5-5.1); Total Protein 6.4 g/dL (6.3-8.2)
[2024-05-29] MEDS: solu-MEDROL 60 MG, Sterile H2O 10 ml 2 ML IV SCH (10:22)
[2024-05-29 11:09] LABS: Lymphocytes 4 % (19.3-51.7); Monocyte 1 % (4.7-12.5); Neutrophils 95 % (34.0-71.1); Total Cells Counted 100
[2024-05-29 11:10] LABS: Platelet Estimate NORMAL (NORMAL)
[2024-05-29 16:21] LABS: 027 TOX PROD PRESUMPTIVE NEGATIVE (NEGATIVE); TOXIGENIC C. DIFF ORG NEGATIVE (NEGATIVE)
[2024-05-29 17:56] LABS: Appearance Clear (Clear); Bacteria None Seen /HPF (None Seen); Bilirubin Negative (Negative); Blood Negative (Negative); Epithelial Cells Few /HPF (None Seen); Glucose, Urine Negative (Negative); Hyaline Casts NONE SEEN /LPF (0-2); Ketones Negative (Negative); Leukocyte Esterase Moderate (Negative); Nitrite Negative (Negative); Ph 6.5 (4.6-8.0); Protein,Urine Dip Trace (Negative); Urobilinogen 0.2 mg/dL (0.2)
[2024-05-29 18:05] LABS: RBC 0-2 /HPF (0-5)
[2024-05-29] MEDS ORDERED: IMODIUM 2 MG PO PRN (19:05)
[2024-05-29] MEDS: Ativan 2 MG/1 ML VIAL IV PRN (20:00)
--- NOTE | 2024-05-30 05:24 | PCM.NOTE ---
Date and Time: 05/30/24 0522 Subjective Assessment: HPI: Ms. Washington is a 28-year-old female with PMHX of Irritable bowel disease, Crohn's Disease, GERD, gallbladder Disease, migraines, seizures, asthma, hypothyroidism, anxiety, depression, and chronic morbid obesity admitted 05/23/24 with Flu A after presenting to ED with a two day history of cough, fever, and vomiting. On presentation patient was tachycardic and tachypneic. EKG Sinus Tach, NORMAL AXIS, NORMAL INTERVALS, NORMAL QRS, Non-specific ST Changes. CXR with no acute findings.CT chest with Recurrent diffuse bilateral patchy groundglass airspace disease. Negative for PE. Labs remarkable for leukocytosis with WBC 12.2, CO2 18. In ER 1LNS fluid bolus, Zofran, steroids, and duoneb were provided. IP treatment with tamiflu, solumedrol, IVF, and supportive care. Dr. Barreto consulted on patient 05/26/24 and recommended changing solumedrol to 60mg q6h and placing her on CPAP. 05/24/24: Overnight events noted of increased use of oxygen. Patient now on HF 40L at 50% FiO2. Patient endorses increased dyspnea and cough with pain in her abdomen and back from coughing. Patient also endorsing diarrhea. Will order CT Chest w/ PE protocol today. Continue treatment for fluA until CT report. 05/25: CT chest with Recurrent diffuse bilateral patchy groundglass airspace disease. Negative for PE. Ceftriaxone and azithromycin initiated 05/24/24. Patient now on 4L NC from HF 40L at 50% FiO2. Endorses improvement in dyspnea and cough. Encouraged ambulation and incentive spirometer. Continue abx, steroid, and tamiflu. Patient does report anxiety this morning. 05/26: Met with patient bedside. Continues to endorse dyspnea and cough. Remains on 4L NC. Consult with pulmonology pending, appreciate recs. Denies fever, cp, abdominal pain, PETERSON, dizziness, N/V/D. 05/27: Discussed case with Dr. Barreto 05/26/24 and solumedrol changed to 60mg q6h and CPAP added. Patient feels that she is doing better today. WBC down-trending. Lung sounds coarse with exp wheezing on auscultation. Patient states she is having frequency with urination. Will order UA. Denies fever,cp, abdominal pain, PETERSON, dizziness, N/V/D. 05/28: No overnight events noted. Dyspnea and cough improving. Patient on 10L oxymizer. Lung sounds with exp wheezing and coarse crackles. Patient states she is having mult episodes of diarrhea. Will check stools today. 05/29: Patient endorses improvement in dyspnea and cough. She reports multiple episodes of diarrhea but stool specimen has not been collected yet. CXR redemonstrating bilateral groundglass airspace disease. Will continue BIPAP/oxymizer alt. Continue steroids. 05/30: Dyspnea has improved. Oxygen now at 6L oxymask alt with BIPAP. Per Dr. Barreto- reduce steroid to 40mg q8h. ABG with improvement. Will discontinue ativan as patient became confused - do not want to impair respiratory drive. - Review of Systems Constitutional: No Symptoms Eyes: No Symptoms Ears, Nose, & Throat: No Symptoms Respiratory: Cough, Short Of Breath, Wheezing Cardiac: No Symptoms Abdominal/Gastrointestinal: Diarrhea Genitourinary Symptoms: No Symptoms Musculoskeletal: No Symptoms Skin: No Symptoms Neurological: No Symptoms Psychological: No Symptoms Endocrine: No Symptoms Hematologic/Lymphatic: No Symptoms Immunological/Allergic: No Symptoms Objective Exam General Appearance: no apparent distress, obese Neurologic Exam: alert, oriented x 3, cooperative Skin Exam: normal color Wound Assessment: Skin/Wound Assessment Wound/Incision Assessment Start: 05/23/24 17:53 Text: Status: Active Freq: Protocol: Document 05/23/24 17:53 RB (Rec: 05/23/24 17:55 RB [id number]) Wound/Incision Assessment Lower Anterior Abdomen Wound Assessment Admission Wound Type gaulding Dressing Status Dry & Intact Drainage Amount None Drainage Odor Foul Odor Surrounding Tissue [place] Comment nystatin powder and pillow cases placed to keep dry Anterior Abdomen Wound Assessment Admission Wound Type scabs Wound Stage Non Pressure Wound Dressing Status Dry & Intact Drainage Amount None Drainage Odor None/Absent Comment scattered healing wounds noted to anterior abd, pt reports gary from a heating pad, open to air, no bleeding or drainage noted Eye Exam: PERRL Ears, Nose, Throat Exam: normal ENT inspection Neck Exam: normal inspection Respiratory Exam: crackles/rales, wheezing Cardiovascular Exam: regular rate/rhythm, normal heart sounds Gastrointestinal/Abdomen Exam: soft, normal bowel sounds Extremity Exam: normal inspection Back Exam: normal inspection Pelvic Exam: deferred Rectal Exam: deferred Objective Data Vital Signs: Vital Signs - 24 hr Temp Pulse Resp BP Pulse Ox 05/30/24 04:12 115 H 24 05/30/24 00:00 115 H 24 94 L 05/29/24 20:00 98.5 F 122 H 26 H 135/69 94 L 05/29/24 17:21 108 H 32 H 97 05/29/24 16:00 97.8 F 113 H 34 H 96 05/29/24 13:37 120 H 32 H 98 05/29/24 12:00 98 F 102 H 34 H 125/65 97 05/29/24 08:22 123 H 36 H 96 05/29/24 08:00 97.8 F 123 H 30 H 123/69 97 Pain Assessment - Last Documented Pain Intensity 0 Pain Scale Used 0-10 Pain Scale Intake and Output: Intake & Output 05/27/24 05/28/24 05/29/24 05/30/24 11:59 11:59 11:59 11:59 Intake Total 1200 2060 1260 360 Output Total 650 Balance 1200 1410 1260 360 Weight 104.5 kg Lab Results: Lab Results-Last 24 Hours 05/28/24 05/29/24 05/29/24 Range/Units 15:35 07:50 08:10 WBC 18.4 H (3.98-10.04) x10^3/uL RBC 3.22 L (3.93-5.22) x10^6/uL Hgb 9.9 L (11.2-15.7) g/dL Hct 30.6 L (34.1-44.9) % MCV 95.0 H (79.4-94.8) fL MCH 30.7 (25.6-32.2) pg MCHC 32.4 (32.2-35.5) g/dL RDW 18.7 H (11.7-14.4) % Plt Count 211 (182-369) x10^3/uL MPV 9.1 L (9.4-12.3) fL Segmented Neutrophils 95 H (34.0-71.1) % Lymphocytes (Manual) 4 L (19.3-51.7) % Monocytes (Manual) 1 L (4.7-12.5) % Platelet Estimate NORMAL (NORMAL) RBC Morphology NORMAL Sodium (135-145) mmol/L Potassium (3.5-5.1) mmol/L Chloride (98-107) mmol/L Carbon Dioxide (22-30) mmol/L Anion Gap (5-15) MEQ/L BUN (7-17) mg/dL Creatinine (0.52-1.04) mg/dL Estimated GFR ML/MIN Glucose (74-106) mg/dL POC Glucometer 143 H (74 to 106) mg/dL Calcium (8.4-10.2) mg/dL Magnesium (1.6-2.3) mg/dL Total Bilirubin (0.2-1.3) mg/dL AST (14-36) U/L ALT (0-35) U/L Alkaline Phosphatase (38-126) U/L Serum Total Protein (6.3-8.2) g/dL Albumin (3.5-5.0) g/dL Urine Color (Yellow) Urine Appearance (Clear) Urine pH (4.6-8.0) Ur Specific [place] (1.005-1.030) Urine Protein (Negative) Urine Glucose (UA) (Negative) mg/dL Urine Ketones (Negative) Urine Blood (Negative) Urine Nitrite (Negative) Urine Bilirubin (Negative) Urine Urobilinogen (0.2) mg/dL Ur Leukocyte Esterase (Negative) U Hyaline Cast (Auto) (0-2) /LPF Urine Microscopic RBC (0-5) /HPF Urine Microscopic WBC (0-5) /HPF Ur Epithelial Cells (None Seen) /HPF Urine Bacteria (None Seen) /HPF Urine Culture Reflexed (NO) C. difficile Screen NEGATIVE (NEGATIVE) C.difficile 027-NAP1-B1 PRESUMPTIVE NEGATIVE (NEGATIVE) 05/29/24 05/29/24 05/29/24 Range/Units 08:10 12:06 16:45 WBC (3.98-10.04) x10^3/uL RBC (3.93-5.22) x10^6/uL Hgb (11.2-15.7) g/dL Hct (34.1-44.9) % MCV (79.4-94.8) fL MCH (25.6-32.2) pg MCHC (32.2-35.5) g/dL RDW (11.7-14.4) % Plt Count (182-369) x10^3/uL MPV (9.4-12.3) fL Segmented Neutrophils (34.0-71.1) % Lymphocytes (Manual) (19.3-51.7) % Monocytes (Manual) (4.7-12.5) % Platelet Estimate (NORMAL) RBC Morphology Sodium 138 (135-145) mmol/L Potassium 3.8 (3.5-5.1) mmol/L Chloride 104 (98-107) mmol/L Carbon Dioxide 32 H (22-30) mmol/L Anion Gap 6.5 (5-15) MEQ/L BUN 9 (7-17) mg/dL Creatinine 0.73 (0.52-1.04) mg/dL Estimated GFR 114.1 ML/MIN Glucose 129 H (74-106) mg/dL POC Glucometer 138 H 210 H (74 to 106) mg/dL Calcium 9.0 (8.4-10.2) mg/dL Magnesium 2.4 H (1.6-2.3) mg/dL Total Bilirubin 0.40 (0.2-1.3) mg/dL AST 82 H (14-36) U/L ALT 59 H (0-35) U/L Alkaline Phosphatase 104 (38-126) U/L Serum Total Protein 6.4 (6.3-8.2) g/dL Albumin 3.4 L (3.5-5.0) g/dL Urine Color (Yellow) Urine Appearance (Clear) Urine pH (4.6-8.0) Ur Specific [place] (1.005-1.030) Urine Protein (Negative) Urine Glucose (UA) (Negative) mg/dL Urine Ketones (Negative) Urine Blood (Negative) Urine Nitrite (Negative) Urine Bilirubin (Negative) Urine Urobilinogen (0.2) mg/dL Ur Leukocyte Esterase (Negative) U Hyaline Cast (Auto) (0-2) /LPF Urine Microscopic RBC (0-5) /HPF Urine Microscopic WBC (0-5) /HPF Ur Epithelial Cells (None Seen) /HPF Urine Bacteria (None Seen) /HPF Urine Culture Reflexed (NO) C. difficile Screen (NEGATIVE) C.difficile 027-NAP1-B1 (NEGATIVE) 01/25/25 01/25/25 Range/Units 17:35 19:39 WBC (3.98-10.04) x10^3/uL RBC (3.93-5.22) x10^6/uL Hgb (11.2-15.7) g/dL Hct (34.1-44.9) % MCV (79.4-94.8) fL MCH (25.6-32.2) pg MCHC (32.2-35.5) g/dL RDW (11.7-14.4) % Plt Count (182-369) x10^3/uL MPV (9.4-12.3) fL Segmented Neutrophils (34.0-71.1) % Lymphocytes (Manual) (19.3-51.7) % Monocytes (Manual) (4.7-12.5) % Platelet Estimate (NORMAL) RBC Morphology Sodium (135-145) mmol/L Potassium (3.5-5.1) mmol/L Chloride (98-107) mmol/L Carbon Dioxide (22-30) mmol/L Anion Gap (5-15) MEQ/L BUN (7-17) mg/dL Creatinine (0.52-1.04) mg/dL Estimated GFR ML/MIN Glucose (74-106) mg/dL POC Glucometer 175 H (74 to 106) mg/dL Calcium (8.4-10.2) mg/dL Magnesium (1.6-2.3) mg/dL Total Bilirubin (0.2-1.3) mg/dL AST (14-36) U/L ALT (0-35) U/L Alkaline Phosphatase (38-126) U/L Serum Total Protein (6.3-8.2) g/dL Albumin (3.5-5.0) g/dL Urine Color Yellow (Yellow) Urine Appearance Clear (Clear) Urine pH 6.5 (4.6-8.0) Ur Specific [place] 1.020 (1.005-1.030) Urine Protein Trace A (Negative) Urine Glucose (UA) Negative (Negative) mg/dL Urine Ketones Negative (Negative) Urine Blood Negative (Negative) Urine Nitrite Negative (Negative) Urine Bilirubin Negative (Negative) Urine Urobilinogen 0.2 (0.2) mg/dL Ur Leukocyte Esterase Moderate A (Negative) U Hyaline Cast (Auto) NONE SEEN (0-2) /LPF Urine Microscopic RBC 0-2 (0-5) /HPF Urine Microscopic WBC 6-10 A (0-5) /HPF Ur Epithelial Cells Few (None Seen) /HPF Urine Bacteria None Seen (None Seen) /HPF Urine Culture Reflexed YES (NO) C. difficile Screen (NEGATIVE) C.difficile 027-NAP1-B1 (NEGATIVE) Radiology Exams: Radiology Procedures Category Date Time Status CHEST 1 VIEW (PORTABLE) Routine Exams 05/29/24 08:00 Completed Assessment/Plan (1) Influenza A Current Visit: Yes Status: Acute Assessment & Plan: - Tamiflu started -CXR with no acute findings - Continue IVF, steroids, duonebs, - Antiemetic, Tylenol PRN - CBC, CMP reviewed - WBC reviewed on admission at 12.2 - Tylenol, heating pad for abd pain 2:2 coughing - Tessalon TID PRN cough -Add robitussin AC - baseline RA -supplemental oxygen with goal spo2 > 92%- patient currently requiring HF NC 40L and 50% Fio2 - RT eval and treat -CT chest w/pe protocol - pending 05/25: -CT chest reviewed showing groundglass airspace disease -Ceftriaxone/azith started 05/24/23 -Oxygen now at 4L NC 05/26: -Pulm consult pending - appreciate recs -Continue abx/steroid, add flutter -encourage ambulation, IS and flutter -mucinex 05/27: -Discussed case with Dr. Barreto- after seeing patient 05/26/24 he recommended changing solumedrol to 60mg q6h and placing her on CPAP- agree with plan -Reviewed CBC - WBC count downtrending 13.4<18.1 05/28: -on 10L oxymizer/BIPAP -WBC reviewed at 16.6-most likely from increase of steroids -continue ceftriaxone, dc azithromycin (finished course), solumedrol, dc tamiflu - received full course -repeat cxr tomorrow 05/29: -CXR reviewed noting re-demonstration of bilateral groundglass airspace disease indicated on CT chest -continue bipap/cpap -WBC reviewed at 18.4- most likely from steroids -sputum culture pending -blood culture pending 05/30: -Wbc reviewed at 15.2 -Blood and urine culture with no growth -Per Mary Lou ABGs improving - oxygen requirements improving- decrease solumedrol to 40g Q8H -continue ceftriaxone ##Frequency with urination -Check UA- pending collection 05/30: -Repeat UA- culture pending -On ceftriaxone ###Diarrhea -CDIFF, stool studies pending collection Code(s): J10.1 - FLU DUE TO OTH IDENT INFLUENZA VIRUS W OTH RESP MANIFEST Pneumonia -CT with ground glass airspace disease - see arf for plan (2) History of asthma Current Visit: Yes Status: Acute Assessment & Plan: -Adds to complexity -See the above plan for flu Code(s): Z87.09 - PERSONAL HISTORY OF OTHER DISEASES OF THE RESPIRATORY SYSTEM (3) HTN (hypertension) Current Visit: Yes Status: Acute Assessment & Plan: - Restart home meds - BP stable Code(s): I10 - ESSENTIAL (PRIMARY) HYPERTENSION (4) Tachycardia Current Visit: Yes Status: Acute Assessment & Plan: - Tele - restart home meds -TSH WNL Code(s): R00.0 - TACHYCARDIA, UNSPECIFIED (5) Yeast dermatitis Current Visit: Yes Status: Acute Assessment & Plan: -nystatin powder -pillowcases between abd. folds Code(s): B37.2 - CANDIDIASIS OF SKIN AND NAIL (6) Anxiety and depression Current Visit: Yes Status: Chronic Assessment & Plan: -Continue home meds -consider adding ati Code(s): F41.9 - ANXIETY DISORDER, UNSPECIFIED; F32.A - DEPRESSION, UNSPECIFIED (7) Hypothyroidism Current Visit: Yes Status: Chronic Assessment & Plan: -Continue Synthroid Code(s): E03.9 - HYPOTHYROIDISM, UNSPECIFIED (8) Morbid obesity Current Visit: Yes Status: Chronic Assessment & Plan: -Advised diet and exercise control VTE: Lovenox PPI: Protonix Next of KIN: Parents- Yinka and Zahira D/C plan: 1-2 days Code status: Full Code(s): J10.1 - FLU DUE TO OTH IDENT INFLUENZA VIRUS W OTH RESP MANIFEST (2) History of asthma Current Visit: Yes Status: Acute Code(s): Z87.09 - PERSONAL HISTORY OF OTHER DISEASES OF THE RESPIRATORY SYSTEM (3) HTN (hypertension) Current Visit: Yes Status: Acute Code(s): I10 - ESSENTIAL (PRIMARY) HYPERTENSION (4) Tachycardia Current Visit: Yes Status: Acute Code(s): R00.0 - TACHYCARDIA, UNSPECIFIED (5) Yeast dermatitis Current Visit: Yes Status: Acute Code(s): B37.2 - CANDIDIASIS OF SKIN AND NAIL (6) Anxiety and depression Current Visit: Yes Status: Chronic Code(s): F41.9 - ANXIETY DISORDER, UNSPECIFIED; F32.A - DEPRESSION, UNSPECIFIED (7) Hypothyroidism Current Visit: Yes Status: Chronic Code(s): E03.9 - HYPOTHYROIDISM, UNSPECIFIED (8) Morbid obesity Current Visit: Yes Status: Chronic Code(s): E66.01 - MORBID (SEVERE) OBESITY DUE TO EXCESS CALORIES (9) Frequency of urination Current Visit: Yes Status: Acute Code(s): R35.0 - FREQUENCY OF MICTURITION (10) Diarrhea Current Visit: Yes Status: Acute Code(s): R19.7 - DIARRHEA, UNSPECIFIED
[2024-05-30 07:06] LABS: Hematocrit 31.1 % (34.1-44.9); Hemoglobin 9.8 g/dL (11.2-15.7); Mean Cell Volume 96.3 fL (79.4-94.8); Mean Corpuscular Hemoglobin 30.3 pg (25.6-32.2); Mean Corpuscular Hgb Concent. 31.5 g/dL (32.2-35.5); Platelet Count 198 x10^3/uL (182-369); Red Blood Count 3.23 x10^6/uL (3.93-5.22); Red Cell Distribution Width 18.6 % (11.7-14.4); White Blood Count 15.2 x10^3/uL (3.98-10.04)
[2024-05-30 07:19] LABS: ALBUMIN 3.5 g/dL (3.5-5.0); ANION GAP 9.1 MEQ/L (5-15); BILIRUBIN,TOTAL 0.4 mg/dL (0.2-1.3); Calcium 9.1 mg/dL (8.4-10.2); Creatinine 1 0.69 mg/dL (0.52-1.04); EST GLOMERULAR FILTRATION RATE 120.4 ML/MIN; MAGNESIUM 2.4 mg/dL (1.6-2.3); Potassium 4.1 mmol/L (3.5-5.1); Total Protein 6.4 g/dL (6.3-8.2)
[2024-05-30 07:55] LABS: A-aADO2 278; ABG HEMOGLOBIN 13.9; ABG SITE LEFT RADIAL; ALLEN TEST OK? YES; ARTERIAL BLD GAS O2 SATURATION 99.7 % (95-100); ARTERIAL BLOOD GAS BASE EXCESS 8.2 (-2.0-2.0); ARTERIAL BLOOD GAS FIO2 64 %; ARTERIAL BLOOD GAS PCO2 53 mmHg (35-45); ARTERIAL BLOOD GAS PO2 112 mmHg (75-100); ARTERIAL BLOOD GAS pH 7.42 (7.35-7.45); CARBOXYHEMOGLOBIN 1.5 % THgb (0.0-6.9); HCO3- 34.4 (22-28); HGB O2 SAT 97.1 g/dF (94-100); Methhemoglobin 1.1 % (1.4-1.5); paO2 pAO1 0.29
[2024-05-30 08:58] LABS: BAND 2 % (0.0-2.0); Lymphocytes 7 % (19.3-51.7); Monocyte 3 % (4.7-12.5); Neutrophils 88 % (34.0-71.1); Total Cells Counted 100
[2024-05-30 08:59] LABS: ANISOCYTOSIS 1+; Platelet Estimate NORMAL (NORMAL)
[2024-05-30] MEDS ORDERED: solu-MEDROL 40 MG, Sterile H2O 10 ml 2 ML IV SCH (10:00)
[2024-05-30] MEDS: solu-MEDROL 40 MG, Sterile H2O 10 ml 1 ML IV SCH (14:32)
[2024-05-30] MEDS ORDERED: Robitussin-Dm Syrup PO PRN (15:22)
[2024-05-31 06:50] LABS: Hematocrit 31.8 % (34.1-44.9); Mean Cell Volume 99.7 fL (79.4-94.8); Mean Corpuscular Hemoglobin 31.3 pg (25.6-32.2); Mean Corpuscular Hgb Concent. 31.4 g/dL (32.2-35.5); Mean Platelet Volume 9.4 fL (9.4-12.3); Platelet Count 156 x10^3/uL (182-369); Red Blood Count 3.19 x10^6/uL (3.93-5.22); White Blood Count 10.1 x10^3/uL (3.98-10.04)
[2024-05-31 07:10] LABS: ALBUMIN 3.2 g/dL (3.5-5.0); ANION GAP 8.8 MEQ/L (5-15); BILIRUBIN,TOTAL 0.4 mg/dL (0.2-1.3); Calcium 8.9 mg/dL (8.4-10.2); Creatinine 1 0.61 mg/dL (0.52-1.04); MAGNESIUM 2.1 mg/dL (1.6-2.3); Total Protein 5.9 g/dL (6.3-8.2)
[2024-05-31 07:29] LABS: Lymphocytes 12 % (19.3-51.7); Metamyelocyte 1 %; Monocyte 4 % (4.7-12.5); Myelocyte 3 %; Neutrophils 80 % (34.0-71.1); Total Cells Counted 100
[2024-05-31 07:31] LABS: ANISOCYTOSIS 1+; Platelet Estimate NORMAL (NORMAL)
[2024-05-31 07:35] VITALS: TEMP 97.7
[2024-05-31 11:26] VITALS: BP 106/81; PULSE 104; RESP 20; O2SAT 93
--- NOTE | 2024-05-31 11:42 | PCM.DS ---
Discharge Summary Date of Admission: 05/24/24 05:25 Date of Discharge: 05/31/24 Admitting Physician: MAME WILSON MD Primary Care Provider: DANIS,CIERRA Allergies Allergies adhesive tape Allergy (Intermediate, Verified 05/23/24 11:27) Blisters [place] Allergy (Verified 05/23/24 11:27) paroxetine HCl [From Paxil] Adverse Reaction (Verified 05/23/24 11:27) Nausea Hospital Summary - Hospital Course Hospital Course: Ms. Washington is a 28-year-old female with PMHX of Irritable bowel disease, Crohn's Disease, GERD, gallbladder Disease, migraines, seizures, asthma, hypothyroidism, anxiety, depression, and chronic morbid obesity admitted 05/23/24 with Flu A after presenting to ED with a two day history of cough, fever, and vomiting. On presentation patient was tachycardic and tachypneic. EKG Sinus Tach, NORMAL AXIS, NORMAL INTERVALS, NORMAL QRS, Non-specific ST Changes. CXR with no acute findings. CT chest with Recurrent diffuse bilateral patchy ground glass airspace disease. Negative for PE. Labs remarkable for leukocytosis with WBC 12.2, CO2 1 8. In ER 1LNS fluid bolus, Zofran, steroids, and duoneb were provided. IP treatment with tamiflu, solumedrol, IVF, and supportive care. Dr. Barreto consulted on patient 05/26/24 and recommended changing solumedrol to 60mg q6h and placing her on CPAP. She has improved daily since admission. She is requesting to d/c today. She continues to require oxygen. When sitting she requires 2lNC and when walking 3/5 L NC. RT qualified her for home O2. Sputum culture and BC x2 negative. Labs overall improving. She will need repeat OP labs with PCP. Pulm OK with d/c and will f/u OP for PFT testing. Case management to set up home O2. Continue OP steroids, breathing treatments, and antibiotics. She denies CP, SOB, abd pain, N/V/D. - Vitals & Intake/Output Vital Signs: Vital Signs Temperature 97.7 F 05/31/24 11:25 Pulse Rate 104 H 05/31/24 11:25 Respiratory Rate 20 05/31/24 11:25 Blood Pressure 106/81 05/31/24 11:25 O2 Sat by Pulse Oximetry 93 L 05/31/24 11:25 Intake & Output: Intake & Output 05/28/24 05/29/24 05/30/24 05/31/24 11:59 11:59 11:59 11:59 Intake Total 2060 9536 071 7130 Output Total 650 600 Balance 1410 1260 480 560 - Lab Result Diagrams: 05/31/24 06:45 05/31/24 06:45 Lab Results-Last 24 Hrs: Lab Results-Last 24 Hours 05/30/24 05/30/24 05/31/24 Range/Units 11:37 22:27 06:45 WBC 10.1 H (3.98-10.04) x10^3/uL RBC 3.19 L (3.93-5.22) x10^6/uL Hgb 10.0 L (11.2-15.7) g/dL Hct 31.8 L (34.1-44.9) % MCV 99.7 H (79.4-94.8) fL MCH 31.3 (25.6-32.2) pg MCHC 31.4 L (32.2-35.5) g/dL RDW 18.0 H (11.7-14.4) % Plt Count 156 L (182-369) x10^3/uL MPV 9.4 (9.4-12.3) fL Segmented Neutrophils 80 H (34.0-71.1) % Lymphocytes (Manual) 12 L (19.3-51.7) % Monocytes (Manual) 4 L (4.7-12.5) % Metamyelocytes 1 % Myelocytes 3 % Platelet Estimate NORMAL (NORMAL) RBC Morphology ABNORMAL Anisocytosis 1+ Sodium (135-145) mmol/L Potassium (3.5-5.1) mmol/L Chloride (98-107) mmol/L Carbon Dioxide (22-30) mmol/L Anion Gap (5-15) MEQ/L BUN (7-17) mg/dL Creatinine (0.52-1.04) mg/dL Estimated GFR ML/MIN Glucose (74-106) mg/dL POC Glucometer 136 H 152 H (74 to 106) mg/dL Calcium (8.4-10.2) mg/dL Magnesium (1.6-2.3) mg/dL Total Bilirubin (0.2-1.3) mg/dL AST (14-36) U/L ALT (0-35) U/L Alkaline Phosphatase (38-126) U/L Serum Total Protein (6.3-8.2) g/dL Albumin (3.5-5.0) g/dL 05/31/24 05/31/24 Range/Units 06:45 07:50 WBC (3.98-10.04) x10^3/uL RBC (3.93-5.22) x10^6/uL Hgb (11.2-15.7) g/dL Hct (34.1-44.9) % MCV (79.4-94.8) fL MCH (25.6-32.2) pg MCHC (32.2-35.5) g/dL RDW (11.7-14.4) % Plt Count (182-369) x10^3/uL MPV (9.4-12.3) fL Segmented Neutrophils (34.0-71.1) % Lymphocytes (Manual) (19.3-51.7) % Monocytes (Manual) (4.7-12.5) % Metamyelocytes % Myelocytes % Platelet Estimate (NORMAL) RBC Morphology Anisocytosis Sodium 136 (135-145) mmol/L Potassium 4.0 (3.5-5.1) mmol/L Chloride 101 (98-107) mmol/L Carbon Dioxide 31 H (22-30) mmol/L Anion Gap 8.8 (5-15) MEQ/L BUN 12 (7-17) mg/dL Creatinine 0.61 (0.52-1.04) mg/dL Estimated GFR 124.0 ML/MIN Glucose 149 H (74-106) mg/dL POC Glucometer 122 H (74 to 106) mg/dL Calcium 8.9 (8.4-10.2) mg/dL Magnesium 2.1 (1.6-2.3) mg/dL Total Bilirubin 0.40 (0.2-1.3) mg/dL AST 62 H (14-36) U/L ALT 62 H (0-35) U/L Alkaline Phosphatase 83 (38-126) U/L Serum Total Protein 5.9 L (6.3-8.2) g/dL Albumin 3.2 L (3.5-5.0) g/dL Micro Results-Entire Visit: Microbiology 05/25/24 Unknown Gram Stain - Final Sputum - Expectorant Sputum Culture - Final ORGANISMS ISOLATED ARE CONSISTENT WITH NORMAL RESP ANGELIQUE MODERATE GROWTH, NO PREDOMINANT ORGANISM 05/29/24 13:30 Ova and Parasite Result 1 - Final Stool Not Reportable Ova and Parasite Result 2 - Final Not Reportable Ova and Parasite Result 3 - Final Not Reportable Ova and Parasite Result 4 - Final Not Reportable Antimicrobic Susceptibility - Final Not Reportable 05/25/24 09:08 Blood Culture - Final Blood 05/25/24 09:00 Blood Culture - Final Blood Accuchecks Date 05/31/24 Date 05/30/24 Time 09:12 Time 17:29 - Procedures and Test Procedures and Tests throughout Hospitalization: Therapy Orders & Screens 05/23/24 12:17 Respiratory Therapy Assessment DAILY Comment: 05/23/24 15:07 Oxygen Nasal Cannula 2 lpm Comment: Respiratory Therapy Consult ONCE Comment: Reason For Exam: 05/23/24 15:34 RT Miscellaneous Order ROUTINE Comment: Physician Instructions: Keep sat > 92% Reason For Exam: eval and treat, wean O2 Diagnosis: Flu A 05/25/24 09:36 Incentive Spirometry UD Comment: Diagnosis: Flu A 05/26/24 16:41 BiPap/CPAP ROUTINE Comment: CPAP 10CM + O2 TOLORATED Diagnosis: PNEUMONIA, INFLUENZA A Discharge Exam General Appearance: no apparent distress, alert Neurologic Exam: alert, oriented x 3, normal mood/affect, nml cerebellar function, sensation nml, agitation, No motor deficits Eye Exam: PERRL, EOMI, eyes nml inspection Ears, Nose, Throat Exam: normal ENT inspection, pharynx normal, moist mucous membranes Neck Exam: normal inspection, non-tender, supple, full range of motion Respiratory Exam: normal breath sounds, lungs clear, No respiratory distress Cardiovascular Exam: regular rate/rhythm, normal heart sounds Gastrointestinal/Abdomen Exam: soft, No tenderness, No mass Pelvic Exam: deferred Rectal Exam: deferred Back Exam: normal inspection, normal range of motion, No CVA tenderness, No vertebral tenderness Extremity Exam: normal inspection, normal range of motion Skin Exam: normal color, warm, dry Wound Assessment: Skin/Wound Assessment Wound/Incision Assessment Start: 05/23/24 17:53 Text: Status: Active Freq: Protocol: Document 05/23/24 17:53 RB (Rec: 05/23/24 17:55 RB [id number]) Wound/Incision Assessment Lower Anterior Abdomen Wound Assessment Admission Wound Type gaulding Dressing Status Dry & Intact Drainage Amount None Drainage Odor Foul Odor Surrounding Tissue Enigma Comment nystatin powder and pillow cases placed to keep dry Anterior Abdomen Wound Assessment Admission Wound Type scabs Wound Stage Non Pressure Wound Dressing Status Dry & Intact Drainage Amount None Drainage Odor None/Absent Comment scattered healing wounds noted to anterior abd, pt reports gary from a heating pad, open to air, no bleeding or drainage noted Final Diagnosis/Problem List - Final Discharge Diagnosis/Problem (1) Flu Current Visit: Yes Status: Acute Assessment & Plan: - Tamiflu - CXR with no acute findings - Antiemetic, Tylenol PRN - CBC, CMP reviewed - Tylenol, heating pad for abd pain 2:2 coughing - Tessalon TID PRN cough - steriods, xoponex -CT chest reviewed showing groundglass airspace disease -Ceftriaxone/azith started 05/24/23 -Oxygen now at 3.5L NC when walking, 2 LNC when sitting -Pulm consult -sputum culture negative -blood culture x2 negative - OP appointment made with Dr. Barreto for PFT testing - Continue OP steroids, breathing treatments, antibiotics Code(s): J11.1 - FLU DUE TO UNIDENTIFIED INFLUENZA VIRUS W OTH RESP MANIFEST (2) Pneumonia Current Visit: Yes Status: Acute Assessment & Plan: -CT Chest: Impression: 1. Pulmonary embolus evaluation limited by suboptimal contrast opacification and diffuse respiration artifact. No obvious pulmonary embolus. Line 2. Recurrent diffuse bilateral patchy groundglass airspace disease. 3. Chronic findings including fatty liver and splenomegaly. - IV antibiotics, xoponex, steroids, cough medication- will d/c with po meds - O2 Keep sat > 92% - RT eval and treat - WBC 10.1- improved - Sputum culture negative - BX x2 negative Code(s): J18.9 - PNEUMONIA, UNSPECIFIED ORGANISM (3) History of asthma Current Visit: Yes Status: Chronic Assessment & Plan: -Adds to complexity -See the above plan for flu Code(s): Z87.09 - PERSONAL HISTORY OF OTHER DISEASES OF THE RESPIRATORY SYSTEM (4) Yeast dermatitis Current Visit: Yes Status: Acute Assessment & Plan: -nystatin powder -pillowcases between abd. folds Code(s): B37.2 - CANDIDIASIS OF SKIN AND NAIL (5) Morbid obesity Current Visit: Yes Status: Chronic Assessment & Plan: -Advised diet and exercise control Code(s): E66.01 - MORBID (SEVERE) OBESITY DUE TO EXCESS CALORIES (6) Anxiety and depression Current Visit: Yes Status: Chronic Assessment & Plan: -Continue home meds - Ativan stopped d/t increased confusion Code(s): F41.9 - ANXIETY DISORDER, UNSPECIFIED; F32.A - DEPRESSION, UNSPECIFIED (7) Hypothyroidism Current Visit: Yes Status: Chronic Assessment & Plan: -Continue Synthroid Code(s): E03.9 - HYPOTHYROIDISM, UNSPECIFIED (8) Tachycardia Current Visit: Yes Status: Resolved Assessment & Plan: - resolved Code(s): R00.0 - TACHYCARDIA, UNSPECIFIED (9) HTN (hypertension) Current Visit: Yes Status: Chronic Assessment & Plan: - Cont. home meds - BP stable Code(s): I10 - ESSENTIAL (PRIMARY) HYPERTENSION (10) Diarrhea Current Visit: Yes Status: Resolved Assessment & Plan: - resolved - CDIFF negative Code(s): R19.7 - DIARRHEA, UNSPECIFIED (11) Frequency of urination Current Visit: Yes Status: Acute Assessment & Plan: - urine culture pending- will continue to follow OP Code(s): R35.0 - FREQUENCY OF MICTURITION - Discharge Discharge Date: 05/31/24 Disposition: Home, Self-Care Condition: Good Prescriptions: New Guaifenesin 600 mg ER [Mucinex 600MG ER Tabs] 600 mg PO BID 12 Days #24 tablet Nystatin Powder 15 gm [Nystop Powder 15 gm] 1 gm TP BID 12 Days #1 unit Continue Levothyroxine Sodium 75 Mcg [Synthroid 75 Mcg] 75 mcg PO DAILY PANTOPRAZOLE 40 mg Tablet [Protonix 40MG Tablet] 40 mg PO DAILY Zolpidem Tartrate 5 mg [Ambien 5 MG Tablet] 5 mg PO HS Propranolol HCl [Propranolol HCl ER] 160 mg PO DAILY Metoprolol Succinate 25 mg Xl* [Toprol-Xl 25MG Tablets] 25 mg PO DAILY Duloxetine HCl 60 mg PO DAILY Gabapentin [Neurontin ] 400 mg PO TID Benztropine Mesylate 2 mg PO BID Potassium Chloride 10 meq PO HS Instructions: Oxygen therapy at home, Pneumonia in adults - Discharge instructions, Flu in adults - ED discharge instructions Follow up with: THOMAS BARRETO [ACTIVE STAFF] - 06/16/24 1:30 pm CIERRA MOSCOSO MD [Primary Care Provider] - 06/11/24 3:00 pm ([facility])
== END 2024-05-31 12:58 | disposition home or self-care (01) | DRG 153 ==
LOC: ED 11:15 → MED SURG 15:03 → OBSVTOIN 05-24 05:25 → ED 05-24 11:15 → MED SURG 05-24 15:03
PROVIDERS: ADMIT Internal Medicine; ATTEND Internal Medicine
PROC: 05HB33Z Insertion of Infusion Device into Right Basilic Vein, Percutaneous Approach (ICD-10-PCS; principal; 2024-05-26)
DX: J11.1 Influenza due to unidentified influenza virus with other respiratory manifestations (principal); J18.9 Pneumonia, unspecified organism; Z59.82 Transportation insecurity; Z87.09 Personal history of other diseases of the respiratory system; B37.2 Candidiasis of skin and nail; E66.01 Morbid (severe) obesity due to excess calories; F41.9 Anxiety disorder, unspecified; F32.A Depression, unspecified; E03.9 Hypothyroidism, unspecified; R00.0 Tachycardia, unspecified; I10 Essential (primary) hypertension; R35.0 Frequency of micturition; R11.2 Nausea with vomiting, unspecified; E11.9 Type 2 diabetes mellitus without complications; I25.10 Atherosclerotic heart disease of native coronary artery without angina pectoris; Z79.899 Other long term (current) drug therapy; K58.9 Irritable bowel syndrome, unspecified
CPT/HCPCS: 0241U; 36415; 36600; 71045; 71046; 71260; 80053; 81001; 82375; 82803; 82947; 83036; 83735; 84443; 84703; 85025; 85027; 87040; 87045; 87046; 87070; 87086; 87177; 87209; 87328; 87329; 87427; 87493; 87651; 93005; 93268; 94640; 94660; 94760; 94762; 96360; 96374; 96375; 99285; 87077; 87186; J0456; J0696; J1650; J2060; J2405; J2919; Q3014; A9270-GY; G0378

== ENCOUNTER 2025-02-17 13:49 | Emergency (ER) | payer OTHER ==
[2025-02-17 14:15] VITALS: RESP 18; TEMP 97.3; O2SAT 100
--- NOTE | 2025-02-17 14:29 | ERPHSYRPT ---
- History of Present Illness Time Seen by Provider: 02/17/25 14:05 Source: patient Patient Subjective Stated Complaint: pt here for pain to left foot, she states she while trying to go down stairs. denies any other injury Triage Nursing Assessment: pt alert, walked in with slight limp, resp easy, skin w/d/p. has swelling and bruising to top of foot, pt states she has not tried over the counter meds or ice Physician History: Patient presents with pain in her left foot. She reports that she was going down some stairs yesterday when she twisted and felt a pain in the top of her foot. She has swelling. She reports increased pain with ambulation Allergies/Adverse Reactions: adhesive tape Allergy (Intermediate, Verified 02/17/25 14:01) Blisters [place] Allergy (Verified 02/17/25 14:01) diphenhydramine [From Benadryl] Adverse Reaction (Verified 02/17/25 14:01) paroxetine HCl [From Paxil] Adverse Reaction (Verified 02/17/25 14:01) Nausea Home Medications: Levothyroxine Sodium 75 Mcg [Synthroid 75 Mcg] 75 mcg PO DAILY 03/19/21 [History] PANTOPRAZOLE 40 mg Tablet [Protonix 40MG Tablet] 40 mg PO DAILY 06/11/21 [History] Propranolol HCl [Propranolol HCl ER] 160 mg PO DAILY 06/11/21 [History] Benztropine Mesylate 2 mg PO BID 05/23/24 [History] Duloxetine HCl 60 mg PO DAILY 05/23/24 [History] Gabapentin [Neurontin ] 400 mg PO TID 05/23/24 [History] Metoprolol Succinate 25 mg Xl* [Toprol-Xl 25MG Tablets] 25 mg PO DAILY 05/23/24 [History] Potassium Chloride 10 meq PO HS 05/23/24 [History] Magnesium Oxide 400 mg BID 02/17/25 [History] Hx Tetanus, Diphtheria Vaccination/Date Given: Yes Hx Influenza Vaccination/Date Given: No Hx Pneumococcal Vaccination/Date Given: No Immunizations Up to Date: Yes Travel Risk - International Travel Have you traveled outside of the country in past 3 weeks: No - Emerging Infectious Disease Are you exhibiting symptoms associated with any current EIDs: No Symptoms: Abdominal Pain, Cough: New Onset, Diarrhea, Headaches/Body Aches/, Shortness of Breath - Review of Systems Constitutional: No Fever, No Chills Eyes: No Symptoms Ears, Nose, & Throat: No Symptoms Respiratory: No Cough, No Dyspnea Cardiac: No Chest Pain, No Edema, No Syncope Abdominal/Gastrointestinal: No Abdominal Pain, No Nausea, No Vomiting, No Diarrhea Genitourinary Symptoms: No Dysuria Musculoskeletal: Injury, Joint Pain, No Back Pain, No Neck Pain Skin: No Rash Neurological: No Dizziness, No Focal Weakness, No Sensory Changes Psychological: No Symptoms Endocrine: No Symptoms All Other Systems: Reviewed and Negative - Past Medical History Pertinent Past Medical History: Yes Neurological History: Migraines, Seizures ENT History: No Pertinent History Cardiac History: Other Respiratory History: Asthma Endocrine Medical History: Hypothyroidism Musculoskeletal History: Other GI Medical History: Irritable Bowel, Crohns Disease, GERD, Gallbladder Disease History: No Pertinent History Psycho-Social History: Depression, Anxiety Female Reproductive Disorders: Other Other Medical History: Yue reports that hx of seizures was a result of medication interaction and the last time she experienced a seizure was summer. 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 Ear tubes bilat,ovarian cyst 2017. ovarian cyst removal jun 2016. colonscopy jun 2016 Significant Family History: no pertinent family hx - Female History Hx Last Menstrual Period: denies Hx Now: No - Social History Smoking Status: Former smoker How long have you smoked: 4 YEARS Exposure to second hand smoke: Yes Drug Use: none - Social Determinants of Health Will the patient participate in the screening: Yes Do you worry about a steady place to live?: No Do you have any problems with any of the following?: No known problems In the past 12 months,have you had to go without utilities?: No Transportation Issues: Yes Has anyone in your support network made you feel unsafe?: No Have you or anyone in your house had to go w/o enough food: No - Nursing Vital Signs Nursing Vital Signs: Initial Vital Signs Temperature 97.3 F 02/17/25 14:14 Pulse Rate 86 02/17/25 14:14 Respiratory Rate 18 02/17/25 14:14 Blood Pressure 108/67 02/17/25 14:14 O2 Sat by Pulse Oximetry 100 02/17/25 14:14 Pain Scale Pain Intensity 9 - Physical Exam General Appearance: no apparent distress Neck Exam: normal inspection Respiratory Exam: normal breath sounds Cardiovascular Exam: regular rate/rhythm, normal heart sounds Extremity Exam: other (Patient has bruising over the top of the left foot. Is neurovasc intact. She reports pain over the distal ankle and diffusely over the foot does not localize to 1 area. No deformity.) SpO2: 100 Ordered Tests: Active Orders 24 hr Category Date Time Status ANKLE (3 VIEWS) Stat Exams 02/17/25 14:10 Completed FOOT (MINIMUM 3 VIEWS) Stat Exams 02/17/25 14:10 Completed Medication Summary Discontinued Medications Generic Name Dose Route Start Last Admin Trade Name Freq PRN Reason Stop Dose Admin Naproxen 500 mg 02/17/25 14:11 02/17/25 15:00 Naproxen 500 Mg Tablet PO 02/17/25 14:12 500 mg STAT ONE Administration Lab/Rad Data: X-ray were read as no acute fracture. - Progress Progress: unchanged Progress Note: 02/17/25 14:29 Patient presenting with left foot injury. Has pain and swelling. X-ray ordered for evaluation 02/17/25 15:12 X-rays were negative for acute fracture as reviewed per radiology report. Discussed symptomatic management. Discussed follow-up with Ortho if not improved this week. Ice ibuprofen for pain - Departure Clinical Impression: Contusion of left foot Condition: Good Critical Care Time: No Referrals: CIERRA MOSCOSO MD [Primary Care Provider, INTERNAL MEDICINE] - Follow up/PCP as directed Instructions: Foot Sprain (DC), Contusion (DC) Additional Instructions: xrays of your foot did not show any broken bones. She will take ibuprofen 800 mg every 8 hours for discomfort. Use crutches as needed for discomfort with weightbearing. Use ice to area of swelling.
[2025-02-17] MEDS: Naprosyn 500 MG PO ONE (15:00)
--- NOTE | 2025-02-17 15:02 | XRAY ---
Indication: Pain and swelling following fall 1 day earlier. Comparison: None 3 nonweightbearing views left foot obtained. No bony, articular, or soft tissue abnormalities.
--- NOTE | 2025-02-17 15:02 | XRAY ---
Indication: Pain and swelling following fall 1 day earlier. Comparison: None 3 view left ankle obtained. No bony, articular, or soft tissue abnormalities.
[2025-02-17 15:11] VITALS: BP 112/71; PULSE 78
== END 2025-02-17 15:19 | disposition home or self-care (01) ==
LOC: ED 13:49
DX: S90.32XA Contusion of left foot, initial encounter (principal); X50.0XXA Overexertion from strenuous movement or load, initial encounter; Z79.899 Other long term (current) drug therapy; Z59.82 Transportation insecurity